=== PATIENT | male | born 1955 | race Hispanic/Latino ===

== ENCOUNTER 2016-07-18 09:52 | Emergency (ER) | payer MEDICAID ==
[2016-07-18 10:11] VITALS: BP 129/87; PULSE 81; RESP 20; TEMP 97; O2SAT 97
[2016-07-18] MEDS ORDERED: Albuterol-Ipratrop 3 mg / 0.5 (3 ml) UD INH STA ×3 (10:40→10:42)
[2016-07-18] MEDS ORDERED: Sodium Chloride 0.9% 1,000 ML IV STA (10:41)
[2016-07-18] MEDS ORDERED: Albuterol-Ipratrop 3 mg / 0.5 (3 ml) UD ONE ×2 (10:41→10:42)
--- NOTE | 2016-07-18 10:45 | ED PDOC ---
HPI: SOB/CHF/COPD Time Seen by Provider: 07/18/16 10:09 Chief Complaint (Nursing): Shortness Of Breath History Per: Patient (states progressive cough and dyspnea for 3 days. getting worse despite use of albuterol. he was admitted last year due to the flu but states that he was given flu vaccine this past season. denies pneumonia vaccine. ) History/Exam Limitations: no limitations Onset/Duration Of Symptoms: Days (3) Current Symptoms Are (Timing): Still Present Current Respiratory Medications: See Home Med List, Albuterol Severity: Moderate Associated Symptoms: denies: Fever, Chills, Sweating, Chest Pain, Bloody Cough, Productive Cough, Heart Racing, Leg/Calf Pain, Ankle/Leg Swelling, Dizziness, Light-headedness, Anxiety, Tingling In Hands Or Face, Musle Spasms In Hands Or Feet - Risk Factors PE Risk Factors: Neg: Extremity Immobilization/Fx, Decreased Mobilty /Activity, Recent Hospitalization, Active Cancer, Previous DVT, Previous PE, CHF, Venous Stasis, Estrogen Usage, Recent Major Trauma Past Medical History Vital Signs: Last Vital Signs Temp 97 F L 07/18/16 10:09 Pulse 81 07/18/16 10:09 Resp 20 07/18/16 11:13 BP 129/87 07/18/16 10:09 Pulse Ox 97 07/18/16 10:46 - Medical History PMH: Asthma, COPD, Sexually Transmitted Disease (Gonorrhea 40 years ago) Denies: HIV, Chronic Kidney Disease - Family History Family History: States: No Known Family Hx - Home Medications Home Medications: Ambulatory Orders Medication Instructions Recorded Patient Own Med [Patient Own Med] 1 unit INH PRN 02/15/14 Oseltamivir [Tamiflu] 75 mg PO BID #0 cap 02/19/14 Albuterol/Ipratropium [Combivent 1 puff IH Q6H #1 inhaler 07/18/16 Respimat] predniSONE [predniSONE Tab] 40 mg PO DAILY #10 tab 07/18/16 - Allergies Allergies/Adverse Reactions: Allergies Allergy/AdvReac Type Severity Reaction Status Date / Time No Known Allergies Allergy Verified 02/15/14 14:42 Review of Systems ROS Statement: Except As Marked, All Systems Reviewed And Found Negative Constitutional: Negative for: Fever Cardiovascular: Negative for: Chest Pain Respiratory: Positive for: Cough, Shortness of Breath Gastrointestinal: Negative for: Nausea, Vomiting, Abdominal Pain, Diarrhea, Constipation Genitourinary Male: Negative for: Dysuria Musculoskeletal: Negative for: Neck Pain, Shoulder Pain, Back Pain Neurological: Negative for: Weakness Physical Exam - Reviewed Nursing Documentation Reviewed: Yes Vital Signs Reviewed: Yes - Physical Exam Appears: Positive for: Well, Non-toxic, No Acute Distress Head Exam: Positive for: ATRAUMATIC, NORMAL INSPECTION, NORMOCEPHALIC Skin: Positive for: Normal Color, Warm, DRY Eye Exam: Positive for: EOMI, Normal appearance, PERRL ENT: Positive for: Normal ENT Inspection Neck: Positive for: Normal, Painless ROM Cardiovascular/Chest: Positive for: Regular Rate, Rhythm Respiratory: Positive for: Decreased Breath Sounds (in all parekh). Negative for: Accessory Muscle Use, Rales, Rhonchi, Wheezing, Respiratory Distress Gastrointestinal/Abdominal: Positive for: Normal Exam, Bowel Sounds, Soft Back: Positive for: Normal Inspection Extremity: Positive for: Normal ROM Neurologic/Psych: Positive for: Alert, Oriented - Laboratory Results Result Diagrams: 07/18/16 11:03 07/18/16 11:03 - ECG O2 Sat by Pulse Oximetry: 97 - Radiology X-Ray: Read By Radiologist X-Ray Interpretation: No Acute Disease - Progress Re-evaluation Time: 12:30 Condition: Re-examined, Improved Disposition - Clinical Impression Clinical Impression: COPD exacerbation - Patient ED Disposition Is Patient to be Admitted: No Doctor Will See Patient In The: Office Counseled Patient/Family Regarding: Diagnosis, Need For Followup, Rx Given - Disposition Referrals: [facility] [Outside] [facility] [Outside] Disposition: Routine/Home Disposition Time: 12:31 Condition: STABLE Prescriptions: Albuterol/Ipratropium [Combivent Respimat] 1 puff IH Q6H #1 inhaler predniSONE [predniSONE Tab] 40 mg PO DAILY #10 tab Instructions: COPD (Chronic Obstructive Pulmonary Disease) (ED) - POA Present On Arrival: None
[2016-07-18 11:08] LABS: BASO # 0.1 K/uL (0.0-0.2); BASO % 0.9 % (0.0-2.0); EOS # 0.8 K/uL (0.0-0.7); EOS % 11.5 % (0.0-4.0); HEMATOCRIT 44.5 % (35.0-51.0); LYMPH # 0.9 K/uL (1.0-4.3); LYMPH % 13.6 % (20.0-40.0); MEAN CELL VOLUME 95.9 fl (80.0-94.0); MEAN CORPUSCULAR HGB CONC 33.4 g/dL (33.0-37.0); MEAN PLATELET VOLUME 7.4 fl (7.2-11.7); MONO # 0.8 K/uL (0.0-0.8); MONO % 12.1 % (0.0-10.0); NEUT # 4.3 K/uL (1.8-7.0); NEUT % 61.9 % (50.0-75.0); NRBC % 0.1 % (0.0-0.0); RED CELL DISTRIBUTION WIDTH 12.7 % (11.5-14.5); WHITE BLOOD COUNT 6.9 K/uL (4.8-10.8)
[2016-07-18 11:14] LABS: ABG ALLEN TEST YES; ARTERIAL BLOOD GAS HCO3 25.2 mmol/L (21-28); ARTERIAL BLOOD GAS O2 CAPACITY 20.5 mL/dL (16-24); ARTERIAL BLOOD GAS O2 CONTENT 20.2 ML/dL (15-23); ARTERIAL BLOOD GAS PH 7.47 (7.35-7.45); ARTERIAL BLOOD GAS PO2 81 mm/Hg (80-100); CARBOXYHEMOGLOBIN 2.1 % (0.5-1.5); HHB 1.4 % (0.0-5.0); METHEMOGLOBIN 1.5 % (0.0-3.0)
[2016-07-18 11:18] LABS: ALB/GLOB RATIO 1.5 (1.0-2.1); ALKALINE PHOSPHATASE 73 U/L (38-126); ALT/SGPT 26 U/L (21-72); AST/SGOT 38 U/L (17-59); BILIRUBIN,TOTAL 0.8 mg/dl (0.2-1.3); BLOOD UREA NITROGEN 12 mg/dl (9-20); CALCIUM 9.6 mg/dL (8.4-10.2); CARBON DIOXIDE 26 mmol/L (22-30); CHLORIDE 100 mmol/L (98-107); GFR AFRICAN-AMERICAN > 60; GLUCOSE,RANDOM 86 mg/dL (75-110); POTASSIUM 4.1 MMOL/L (3.6-5.0); SODIUM 140 mmol/l (132-148); TOTAL PROTEIN 8.4 G/DL (6.3-8.2)
--- NOTE | 2016-07-18 11:38 | RAD ---
HISTORY: COPD. COMPARISON: 02/16/2014. TECHNIQUE: Chest PA and lateral FINDINGS: LUNGS: Hyperinflation, manifestations of COPD. No active pulmonary disease. PLEURA: No significant pleural effusion identified. No pneumothorax apparent. CARDIOVASCULAR: Normal. OSSEOUS STRUCTURES: No significant abnormalities. VISUALIZED UPPER ABDOMEN: Normal. OTHER FINDINGS: None. IMPRESSION: No active disease. No significant interval change compared to the prior examination(s).
--- NOTE | 2016-07-19 11:37 | CARD ---
APPROVED REPORT EKG Measurement Heart [id number] 134P [id number] <Conclusion> Normal sinus rhythm Normal ECG
== END 2016-07-18 12:55 | disposition home or self-care (01) ==
LOC: H.ER 09:52
DX: J44.9 Chronic obstructive pulmonary disease, unspecified (principal); Z86.718 Personal history of other venous thrombosis and embolism
CPT/HCPCS: 71020; 80053; 82803; 85025; 87804; 93005; 94150; 94640; 96361; 96374; 99285; J2930; J7040

== ENCOUNTER 2016-08-05 07:32 | Inpatient (IN) | payer MEDICAID ==
[2016-08-05 07:39] VITALS: BMI 20.9
[2016-08-05] MEDS ORDERED: Albuterol-Ipratrop 3 mg / 0.5 (3 ml) UD ONE ×3 (07:48→17:19)
--- NOTE | 2016-08-05 07:49 | ED PDOC ---
HPI: General Adult Time Seen by Provider: 08/05/16 07:46 Chief Complaint (Provider): cough History Per: Patient History/Exam Limitations: no limitations Additional Complaint(s): 60yo male w/ COPD comes to the ED complaining of cough with white sputum since yesterday. No fever. States his inhaler isn't helping. Past Medical History Reviewed: Historical Data, Nursing Documentation, Vital Signs Vital Signs: Last Vital Signs Temp 97.9 F 08/05/16 07:39 Pulse 95 H 08/05/16 07:39 Resp 20 08/05/16 07:39 BP 148/101 H 08/05/16 07:39 Pulse Ox 94 L 08/05/16 08:12 - Medical History PMH: Asthma, COPD, Sexually Transmitted Disease (Gonorrhea 40 years ago) Denies: HIV, Chronic Kidney Disease - Family History Family History: States: Unknown Family Hx - Social History Current smoker - smoking cessation education provided: Yes ("i have one here and there but I don't but them in packs anymore") - Home Medications Home Medications: Ambulatory Orders Medication Instructions Recorded Albuterol HFA [Ventolin HFA 90 1 puff INH PRN PRN 08/05/16 mcg/actuation (8 g)] - Allergies Allergies/Adverse Reactions: Allergies Allergy/AdvReac Type Severity Reaction Status Date / Time No Known Allergies Allergy Verified 08/05/16 07:45 Review of Systems ROS Statement: Except As Marked, All Systems Reviewed And Found Negative Constitutional: Negative for: Fever Cardiovascular: Negative for: Chest Pain Respiratory: Positive for: Cough, Sputum Physical Exam - Reviewed Nursing Documentation Reviewed: Yes Vital Signs Reviewed: Yes - Physical Exam Appears: Positive for: Well, Non-toxic Head Exam: Positive for: ATRAUMATIC, NORMAL INSPECTION, NORMOCEPHALIC Skin: Positive for: Warm, Dry Eye Exam: Positive for: EOMI, PERRL ENT: Negative for: Pharyngeal Erythema, Tonsillar Exudate Cardiovascular/Chest: Positive for: Regular Rate, Rhythm Respiratory: Positive for: Decreased Breath Sounds, Rhonchi (scattered), Respiratory Distress (mild to moderate). Negative for: Wheezing Gastrointestinal/Abdominal: Positive for: Soft. Negative for: Tenderness Extremity: Positive for: Normal ROM Neurologic/Psych: Positive for: Alert, Oriented (x3) - Laboratory Results Result Diagrams: 08/05/16 08:12 08/05/16 08:12 - ECG O2 Sat by Pulse Oximetry: 94 (RA) Medical Decision Making Medical Decision Makin Impression COPD exacerbation Plan: EKG ABG CXR Labs 2x duonebs solumedrol 125mg reassess Disposition - Clinical Impression Clinical Impression: Moderate COPD (chronic obstructive pulmonary disease), COPD exacerbation - Patient ED Disposition Is Patient to be Admitted: Yes - Disposition Disposition Time: 09:36 Condition: FAIR - Pt Status Changed To: Hospital Disposition Of: Observation - POA Present On Arrival: None Additional Comments - Additional Comments Additional Comments: Scribe Attestation Documented by George Black acting as a scribe for Mo John MD. Provider Attestation All medical record entries made by the Scribe were at my direction and personally dictated by me. I have reviewed the chart and agree that the record accurately reflects my personal performance of the history, physical exam, medical decision making, and the department course for this patient. I have also personally directed, reviewed, and agree with the discharge instructions and disposition
[2016-08-05] MEDS ORDERED: Albuterol-Ipratrop 3 mg / 0.5 (3 ml) UD IH STA ×2 (07:50)
[2016-08-05 08:16] LABS: ABG ALLEN TEST YES; ARTERIAL BLOOD FLOW 2; ARTERIAL BLOOD GAS HCO3 24.4 mmol/L (21-28); ARTERIAL BLOOD GAS MODE NC; ARTERIAL BLOOD GAS O2 CAPACITY 19.3 mL/dL (16-24); ARTERIAL BLOOD GAS O2 CONTENT 19.2 ML/dL (15-23); ARTERIAL BLOOD GAS PH 7.43 (7.35-7.45); ARTERIAL BLOOD GAS PO2 85 mm/Hg (80-100); CARBOXYHEMOGLOBIN 3.5 % (0.5-1.5); HHB 0.3 % (0.0-5.0); METHEMOGLOBIN 2.2 % (0.0-3.0)
[2016-08-05 08:20] LABS: BASO # 0.1 K/uL (0.0-0.2); BASO % 1.1 % (0.0-2.0); EOS # 1.3 K/uL (0.0-0.7); EOS % 17.4 % (0.0-4.0); HEMATOCRIT 41.7 % (35.0-51.0); LYMPH # 1.1 K/uL (1.0-4.3); MEAN CELL VOLUME 95.4 fl (80.0-94.0); MEAN CORPUSCULAR HEMOGLOBIN 32.3 pg (27.0-31.0); MEAN CORPUSCULAR HGB CONC 33.8 g/dL (33.0-37.0); MEAN PLATELET VOLUME 7.4 fl (7.2-11.7); MONO # 0.7 K/uL (0.0-0.8); MONO % 9.8 % (0.0-10.0); NEUT # 4.4 K/uL (1.8-7.0); NEUT % 57.7 % (50.0-75.0); NRBC % 0.1 % (0.0-0.0); RED CELL DISTRIBUTION WIDTH 13.3 % (11.5-14.5); WHITE BLOOD COUNT 7.6 K/uL (4.8-10.8)
[2016-08-05 08:33] LABS: ALB/GLOB RATIO 1.4 (1.0-2.1); ALKALINE PHOSPHATASE 54 U/L (38-126); ALT/SGPT 29 U/L (21-72); AST/SGOT 31 U/L (17-59); BILIRUBIN,TOTAL 0.2 mg/dl (0.2-1.3); BLOOD UREA NITROGEN 12 mg/dl (9-20); CALCIUM 9.4 mg/dL (8.4-10.2); CARBON DIOXIDE 21 mmol/L (22-30); CHLORIDE 104 mmol/L (98-107); GFR AFRICAN-AMERICAN > 60; GLUCOSE,RANDOM 97 mg/dL (75-110); POTASSIUM 4.3 MMOL/L (3.6-5.0); SODIUM 140 mmol/l (132-148); TOTAL PROTEIN 8.5 G/DL (6.3-8.2)
--- NOTE | 2016-08-05 08:51 | RAD ---
HISTORY: Shortness of breath COMPARISON: 07/18/2016. TECHNIQUE: Chest PA and lateral FINDINGS: LUNGS: The lungs are hyperinflated and there is peribronchial thickening with chronic changes in both lungs. There is no lobar pneumonia. PLEURA: No significant pleural effusion identified. No pneumothorax apparent. CARDIOVASCULAR: Normal. OSSEOUS STRUCTURES: No significant abnormalities. VISUALIZED UPPER ABDOMEN: Normal. OTHER FINDINGS: None. IMPRESSION: No active pulmonary disease. COPD.
[2016-08-05] MEDS ORDERED: Albuterol 0.083% Inhal Sol (2.5 mg/3 mL) UD INH PRN (09:53)
--- NOTE | 2016-08-05 09:54 | CP.PCM.HP ---
History of Present Illness - History of Present Illness History of Present Illness: Hx taken from patient Patient does not have advance directives: Designates Alia Orourke(Cousin) [phone] to make decisions for him in case he is not able to. Patient is full code 60 y/o M with PMhx of COPD presented to ED c/o SOB since yesterday. Patien has Hx of CPOD controlled with Albuterol HFA, he admits not taking Advair that was prescribed to him because he is unable to pay for it. Last hosp admission was 1 y/a and last ER visit 2 weeks ago when he was DC with Prednisone PO for 10 days that he finished. He admits chronic cough with small amount of phlegm production but denies any changes in sputum frequency or characteristics recently. Afebrile. Denies other resp symptoms, CP or palpitations Patient lives in a basement with 2 friends. Has long Hx of tobacco abuse but states he only smoke "a couple of cigarettes" from time to time nowadays. Denies traveling Hx. He decided to come to hosp after he wasn't feeling any improvement with the albuterol. ED Course: O2, CXR, Duoneb x2, Solumedrol 125 CBC, ABG VS: O2sat 94, BP 148/101, HR 95 Allergies: NKDA PMHx: COPD(No home O2) SxHx: Neck cyst SHx: Smoking, past ETOH, denies drugs. Denies recent traveling Hx. Present on Admission - Present on Admission Any Indicators Present on Admission: No Review of Systems - Review of Systems Systems not reviewed;Unavailable: Acuity of Condition (Stable, Mild resp difficulty) - Constitutional Constitutional: absent: Anorexia, Weight Loss - EENT Eyes: absent: Change in Vision Nose/Mouth/Throat: absent: Nasal Discharge, Nasal Obstruction, Dry Mouth - Cardiovascular Cardiovascular: As Per HPI - Respiratory Respiratory: As Per HPI - Gastrointestinal Gastrointestinal: absent: Abdominal Pain, Constipation, Diarrhea - Genitourinary Genitourinary: absent: Change in Urinary Stream - Musculoskeletal Musculoskeletal: absent: Abnormal Gait - Neurological Neurological: absent: Dizziness - Psychiatric Psychiatric: absent: Depression Past Patient History - Tetanus Immunizations Tetanus Immunization: Unknown - Past Medical History & Family History Past Medical History?: Yes - Past Social History Smoking Status: Light Smoker < 10 Cigarettes Daily - CARDIAC Hx Cardiac Disorders: No - PULMONARY Hx Asthma: Yes Hx Chronic Obstructive Pulmonary Disease (COPD): Yes - NEUROLOGICAL Hx Neurological Disorder: No - HEENT Hx HEENT Problems: No - RENAL Hx Chronic Kidney Disease: No - ENDOCRINE/METABOLIC Hx Endocrine Disorders: No - HEMATOLOGICAL/ONCOLOGICAL Hx Human Immunodeficiency Virus (HIV): No - INTEGUMENTARY Hx Dermatological Problems: No - MUSCULOSKELETAL/RHEUMATOLOGICAL Hx Musculoskeletal Disorders: No Hx Falls: No - GASTROINTESTINAL Hx Gastrointestinal Disorders: No - GENITOURINARY/GYNECOLOGICAL Hx Sexually Transmitted Disorders: Yes (Gonorrhea 40 years ago) - PSYCHIATRIC Hx Psychophysiologic Disorder: No Hx Substance Use: No (occasional puffs of marijuana) - SURGICAL HISTORY Hx Surgeries: Yes (neck cyst right side) - ANESTHESIA Hx Anesthesia: Yes Hx Anesthesia Reactions: No Hx Malignant Hyperthermia: No Meds Allergies/Adverse Reactions: Allergies Allergy/AdvReac Type Severity Reaction Status Date / Time No Known Allergies Allergy Verified 08/05/16 07:45 Physical Exam - Constitutional Appears: Non-toxic, Other (mild difficulty breathing) - Head Exam Head Exam: NORMAL INSPECTION - Eye Exam Eye Exam: PERRL - ENT Exam ENT Exam: Mucous Membranes Moist - Respiratory Exam Respiratory Exam: Accessory Muscle Use, Rhonchi, Wheezes. absent: Respiratory Distress - Cardiovascular Exam Cardiovascular Exam: REGULAR RHYTHM, +S1, +S2. absent: Gallop - GI/Abdominal Exam GI & Abdominal Exam: Normal Bowel Sounds, Soft - Extremities Exam Extremities exam: Positive for: full ROM, normal capillary refill, normal inspection, pedal pulses present - Neurological Exam Neurological exam: Alert, Oriented x3 - Psychiatric Exam Psychiatric exam: Normal Affect, Normal Mood - Skin Skin Exam: Normal Color, Warm Results - Vital Signs Recent Vital Signs: Last Vital Signs Temp 97.9 F 08/05/16 07:39 Pulse 95 H 08/05/16 07:39 Resp 20 08/05/16 07:39 BP 148/101 H 08/05/16 07:39 Pulse Ox 94 L 08/05/16 09:36 - Labs Result Diagrams: 08/05/16 08:12 08/05/16 08:12 Assessment & Plan - Assessment and Plan (Free Text) Assessment: 58 y/o M, PMH of COPD, c/o increasing SOB since yesterday. COPD exacerbation - ABG done at ER: WNL - CXR: COPD please read full report - Admit for obs - Monitor vital signs - S/P Duoneb x2 - S/P Methylprednisolone 125mg IV - Duoneb inh 3ml QID - Albuterol inh PRN for SOB Q3h - C/w Methylprednisolone 80mg iv q8h - Oxygen by NC 2L/min - Continue iv fluids - repeat CBC AM - Will need custodial anticholinergic or inh steroids + LABA after DC for maintenance High blood pressure without Hx of HTN - CMP, Lipid panel, HgbA1c - Heart healthy diet - EKG WNL Prophylaxis - DVT: Lovenox 40mg sc daily
--- NOTE | 2016-08-05 16:07 | CARD ---
APPROVED REPORT EKG Measurement Heart [id number] <Conclusion> Normal sinus rhythm Normal ECG
[2016-08-05] MEDS ORDERED: MethylPREDNISolone 40 mg Vial ONE (16:32)
[2016-08-05] MEDS: Albuterol-Ipratrop 3 mg / 0.5 (3 ml) UD INH SCH ×3 (16:40→22:12)
[2016-08-06] MEDS: methylPREDNISolone 80 MG in Sodium Chloride 0.9% 50 ML IV SCH ×2 (02:00→17:43)
[2016-08-06] MEDS: Albuterol-Ipratrop 3 mg / 0.5 (3 ml) UD INH SCH ×4 (07:35→20:31)
[2016-08-06 07:43] LABS: HEMATOCRIT 41.6 % (35.0-51.0); MEAN CELL VOLUME 95.1 fl (80.0-94.0); MEAN CORPUSCULAR HEMOGLOBIN 32.1 pg (27.0-31.0); MEAN CORPUSCULAR HGB CONC 33.8 g/dL (33.0-37.0); RED CELL DISTRIBUTION WIDTH 13.2 % (11.5-14.5)
[2016-08-06 08:05] LABS: ALB/GLOB RATIO 1.4 (1.0-2.1); ALKALINE PHOSPHATASE 50 U/L (38-126); ALT/SGPT 28 U/L (21-72); AST/SGOT 25 U/L (17-59); BILIRUBIN,TOTAL 0.7 mg/dl (0.2-1.3); BLOOD UREA NITROGEN 18 mg/dl (9-20); CARBON DIOXIDE 27 mmol/L (22-30); CHLORIDE 100 mmol/L (98-107); CHOLESTEROL 160 mg/dL (0-199); GFR AFRICAN-AMERICAN > 60; GLUCOSE,RANDOM 136 mg/dL (75-110); POTASSIUM 4.8 MMOL/L (3.6-5.0); SODIUM 139 mmol/l (132-148); TOTAL PROTEIN 7.9 G/DL (6.3-8.2)
[2016-08-06] MEDS: Enoxaparin 40 mg Syringe SC SCH (10:39)
[2016-08-06] MEDS: methylPREDNISolone 40 MG in Sodium Chloride 0.9% 50 ML IV SCH (16:55)
--- NOTE | 2016-08-06 16:58 | CP.PCM.PN ---
Subjective - Date & Time of Evaluation Date of Evaluation: 08/06/16 Time of Evaluation: 07:45 - Subjective Subjective: 60 y/o M admitted for COPD exacerbation seen at bedside in not acute distress. Patient general status markedly improved from yesterday. Still c/o of SOB on exertion but not at rest. Denies CP, palpitations, headache, dizziness, vomiting or nausea. He is tolerating PO Objective - Vital Signs/Intake and Output Vital Signs (last 24 hours): Temp Pulse Resp BP Pulse Ox 98.2 F 62 18 109/76 96 08/06/16 16:02 08/06/16 16:02 08/06/16 16:02 08/06/16 16:02 08/06/16 16:02 - Medications Medications: Current Medications Albuterol Sulfate (Albuterol 0.083% Inhal Fernanda (2.5 Mg/3 Ml) Ud) 2.5 mg INH RQ4 PRN PRN Reason: Shortness of Breath Albuterol/Ipratropium (Duoneb 3 Mg/0.5 Mg (3 Ml) Ud) 3 ml INH RQID [facility] Last Admin: 08/06/16 15:24 Dose: 3 ml Enoxaparin Sodium (Lovenox) 40 mg SC DAILY [facility] PRN Reason: Protocol Last Admin: 08/06/16 10:39 Dose: 40 mg Methylprednisolone 40 mg/ (Sodium Chloride) 50.64 mls @ 101.28 mls/hr IV Q8 [facility] - Labs Labs: 08/06/16 07:29 08/06/16 07:29 - Constitutional Appears: Non-toxic, No Acute Distress - Eye Exam Eye Exam: PERRL - ENT Exam ENT Exam: Mucous Membranes Moist - Respiratory Exam Respiratory Exam: Rhonchi (scattered in L/lung. ), Wheezes, NORMAL BREATHING PATTERN - Cardiovascular Exam Cardiovascular Exam: REGULAR RHYTHM, +S1, +S2. absent: Gallop - GI/Abdominal Exam GI & Abdominal Exam: Soft, Normal Bowel Sounds. absent: Tenderness - Neurological Exam Neurological Exam: Alert, Awake, Normal Gait, Oriented x3 - Psychiatric Exam Psychiatric exam: Normal Affect, Normal Mood - Skin Skin Exam: Normal Color, Warm Assessment and Plan - Assessment and Plan (Free Text) Assessment: 58 y/o M, PMH of COPD, c/o increasing SOB since yesterday. COPD exacerbation Improved - CXR: COPD please read full report - Duoneb inh 3ml QID - Albuterol inh PRN for SOB Q3h - C/w Methylprednisolone 40mg iv q8h - Oxygen by NC 2L/min - Continue iv fluids - Will need prison anticholinergic or inh steroids + LABA after DC for maintenance - Anticipated DC on 08/07/16 High blood pressure without Hx of HTN - WNL since admission - CMP WNL - Lipid panel WNL - HgbA1c WNL - Heart healthy diet - EKG WNL Prophylaxis - DVT: Lovenox 40mg sc daily
[2016-08-06] MEDS: guaiFENesin 100 mg/5 ml Syrup UD PO PRN (20:32)
[2016-08-07 00:49] VITALS: TEMP 98.5
[2016-08-07] MEDS: methylPREDNISolone 40 MG in Sodium Chloride 0.9% 50 ML IV SCH ×2 (00:56→09:24)
--- NOTE | 2016-08-07 06:36 | CARD ---
APPROVED REPORT EKG Measurement Heart [id number] [id number] [id number] <Conclusion> Normal sinus rhythm Normal ECG
[2016-08-07] MEDS: Albuterol-Ipratrop 3 mg / 0.5 (3 ml) UD INH SCH ×2 (08:15→12:17)
[2016-08-07 08:23] VITALS: BP 101/70; PULSE 69; RESP 20; O2SAT 95
[2016-08-07] MEDS: guaiFENesin 100 mg/5 ml Syrup UD PO PRN (09:24)
[2016-08-07] MEDS: Enoxaparin 40 mg Syringe SC SCH (09:24)
--- NOTE | 2016-08-07 12:24 | CP.PCM.DIS ---
Provider - Provider Date of Admission: 08/06/16 14:05 Attending physician: Cici Avendano MD Primary care physician: Dr. Duffy Time Spent in preparation of Discharge (in minutes): 30 Diagnosis - Discharge Diagnosis (1) COPD exacerbation Status: Acute Priority: Medium Onset Date: 08/05/16 Hospital Course - Lab Results Lab Results: Most Recent Lab Values WBC 11.0 K/uL (4.8-10.8) H 08/06/16 07:29 RBC 4.37 Mil/uL (4.40-5.90) L 08/06/16 07:29 Hgb 14.0 g/dL (12.0-18.0) 08/06/16 07:29 Hct 41.6 % (35.0-51.0) 08/06/16 07:29 MCV 95.1 fl (80.0-94.0) H 08/06/16 07:29 MCH 32.1 pg (27.0-31.0) H 08/06/16 07:29 MCHC 33.8 g/dL (33.0-37.0) 08/06/16 07:29 RDW 13.2 % (11.5-14.5) 08/06/16 07:29 Plt Count 353 K/uL (130-400) 08/06/16 07:29 MPV 7.4 fl (7.2-11.7) 08/05/16 08:12 Neut % (Auto) 57.7 % (50.0-75.0) 08/05/16 08:12 Lymph % (Auto) 14.0 % (20.0-40.0) L 08/05/16 08:12 [place] % (Auto) 9.8 % (0.0-10.0) 08/05/16 08:12 Eos % (Auto) 17.4 % (0.0-4.0) H 08/05/16 08:12 Baso % (Auto) 1.1 % (0.0-2.0) 08/05/16 08:12 Neut # 4.4 K/uL (1.8-7.0) 08/05/16 08:12 Lymph # 1.1 K/uL (1.0-4.3) 08/05/16 08:12 [place] # 0.7 K/uL (0.0-0.8) 08/05/16 08:12 Eos # 1.3 K/uL (0.0-0.7) H 08/05/16 08:12 Baso # 0.1 K/uL (0.0-0.2) 08/05/16 08:12 pCO2 35 mm/Hg (35-45) 08/05/16 07:49 pO2 85 mm/Hg (80-100) 08/05/16 07:49 HCO3 24.4 mmol/L (21-28) 08/05/16 07:49 ABG pH 7.43 (7.35-7.45) 08/05/16 07:49 ABG Total CO2 24.3 mmol/L (22-28) 08/05/16 07:49 ABG O2 Saturation 99.7 % (95-98) H 08/05/16 07:49 ABG O2 Content 19.2 ML/dL (15-23) 08/05/16 07:49 ABG Base Excess -0.6 mmol/L (-2.0-3.0) 08/05/16 07:49 ABG Hemoglobin 14.5 g/dL (11.7-17.4) 08/05/16 07:49 ABG Carboxyhemoglobin 3.5 % (0.5-1.5) H 08/05/16 07:49 POC ABG HHb (Measured) 0.3 % (0.0-5.0) 08/05/16 07:49 ABG Methemoglobin 2.2 % (0.0-3.0) 08/05/16 07:49 ABG O2 Capacity 19.3 mL/dL (16-24) 08/05/16 07:49 Otoniel Test Yes 08/05/16 07:49 A-a O2 Difference 71.0 mm/Hg 08/05/16 07:49 Hgb O2 Saturation 94.0 % (95.0-98.0) L 08/05/16 07:49 Liter Flow 2 08/05/16 07:49 Vent Mode Nc 08/05/16 07:49 FiO2 28.0 % 08/05/16 07:49 Sodium 139 mmol/l (132-148) 08/06/16 07:29 Potassium 4.8 MMOL/L (3.6-5.0) 08/06/16 07:29 Chloride 100 mmol/L (98-107) 08/06/16 07:29 Carbon Dioxide 27 mmol/L (22-30) 08/06/16 07:29 Anion Gap 17 (10-20) 08/06/16 07:29 BUN 18 mg/dl (9-20) 08/06/16 07:29 Creatinine 0.6 mg/dL (0.8-1.5) L 08/06/16 07:29 Est GFR ( Amer) > 60 08/06/16 07:29 Est GFR (Non-Af Amer) > 60 08/06/16 07:29 Random Glucose 136 mg/dL (75-110) H 08/06/16 07:29 Hemoglobin A1c 5.5 % (4.2-6.5) 08/06/16 07:29 Calcium 10.0 mg/dL (8.4-10.2) 08/06/16 07:29 Total Bilirubin 0.7 mg/dl (0.2-1.3) 08/06/16 07:29 AST 25 U/L (17-59) 08/06/16 07:29 ALT 28 U/L (21-72) 08/06/16 07:29 Alkaline Phosphatase 50 U/L (38-126) 08/06/16 07:29 Total Protein 7.9 G/DL (6.3-8.2) 08/06/16 07:29 Albumin 4.5 g/dL (3.5-5.0) 08/06/16 07:29 Globulin 3.3 gm/dL (2.2-3.9) 08/06/16 07:29 Albumin/Globulin Ratio 1.4 (1.0-2.1) 08/06/16 07:29 Triglycerides 33 mg/DL (0-149) 08/06/16 07:29 Cholesterol 160 mg/dL (0-199) 08/06/16 07:29 LDL Cholesterol Direct 51 mg/dL (0-129) 08/06/16 07:29 HDL Cholesterol 93 MG/DL (30-70) H 08/06/16 07:29 Urine Opiates Screen Negative (NEGATIVE) 08/06/16 18:50 Urine Methadone Screen Negative (NEGATIVE) 08/06/16 18:50 Ur Barbiturates Screen Negative (NEGATIVE) 08/06/16 18:50 Ur Phencyclidine Scrn Negative (NEGATIVE) 08/06/16 18:50 Ur Amphetamines Screen Negative (NEGATIVE) 08/06/16 18:50 U Benzodiazepines Scrn Negative (NEGATIVE) 08/06/16 18:50 U Oth Cocaine Metabols Negative (NEGATIVE) 08/06/16 18:50 U Cannabinoids Screen Positive (NEGATIVE) H 08/06/16 18:50 - Hospital Course Hospital Course: 60 yr old M current smoker with PMHx of COPD came [facility] ED with complaint of worsening cough and sputum production x 1 day. CXR was negative for active disease, he was admitted for COPD exacerbation and treated with Albuterol Methylprednisolone, patient improved, remained stable and O2 was normal on room air. Discharged with Rx for Ventolin HFA 90mcg PRN SOB, Prednisone 20mg PO x 3 days, Advair Diskus 250/50 mcg and Robitussin AC PRN for cough. We strongly recommmend outpatient screening for AAA, Hep C and Lung Ca. He has a f/u appt at [facility] scheduled for 08/14/16 at 2:20pm. - Date & Time of H&P Date of H&P: 08/05/16 Time of H&P: 09:52 Discharge Exam - Head Exam Head Exam: NORMAL INSPECTION - Eye Exam Eye Exam: EOMI - ENT Exam ENT Exam: Mucous Membranes Moist - Neck Exam Neck exam: Full Rom - Respiratory Exam Respiratory Exam: Clear to PA & Lateral, NORMAL BREATHING PATTERN - Cardiovascular Exam Cardiovascular Exam: REGULAR RHYTHM, +S1, +S2 - GI/Abdominal Exam GI & Abdominal Exam: Normal Bowel Sounds, Soft. absent: Tenderness - Extremities Exam Extremities exam: full ROM - Back Exam Back exam: absent: CVA tenderness (L), CVA tenderness (R) - Neurological Exam Neurological exam: Alert, CN II-XII Intact - Psychiatric Exam Psychiatric exam: Normal Affect, Normal Mood - Skin Skin Exam: Dry, Intact Discharge Plan - Discharge Medications Prescriptions: Albuterol HFA [Ventolin HFA 90 mcg/actuation (8 g)] 1 puff INH Q4 PRN #1 PRN Reason: Shortness Of Breath Fluticasone/Salmeterol 250/50 [Advair Diskus] 1 puff IH Q12 #1 puff guaiFENesin/Codeine [Codeine/Guaifenesin 10 MG/5 Ml-100 MG/5 Ml 5] 5 ml PO Q6 PRN #1 udc PRN Reason: Cough Prednisone [Deltasone] 20 mg PO DAILY #3 tablet - Follow Up Plan Condition: FAIR Disposition: HOME/ ROUTINE Patient education suggested?: Yes Instructions: COPD (Chronic Obstructive Pulmonary Disease) (DC) Additional Instructions: -Take medications as prescribed -Follow up at [facility] as scheduled on 08/14/16 2:20pm Referrals: Danita Duffy [Family Provider] -
--- NOTE | 2016-08-07 14:14 | PQF GENQUE ---
This form is a permanent part of the medical record 08/07/16 Dr. Flynn Min, Please clarify the type of asthma if known. In the H&P under the PMH section there is documentation of Asthma (YES). + COPD noted. Admitted with SOB and productive cough. CXR No active pulmonary disease. COPD. Treated with nebulizers, Solumedrol and Robitussin Clarification of your documentation is requested to better reflect the severity of illness and intensity of treatment of your patient. PHYSICIAN'S RESPONSE 1. Please clarify type of asthma: [] Childhood [] Cough variant [] Exercise induced [] Late onset [] Mild intermittent [] Mild persistent [] Moderate persistent [] Severe persistent [] With bronchitis(please clarify acuity of bronchitis) [] With chronic lung disease (please document specific chronic lung disease ) [] Other (please specify) [] Unable to determine [] Unknown 2. Please clarify acuity of asthma: [] Uncomplicated [] With exacerbation(acute) [] With status asthmaticus [] Other (please specify) [] Unable to determine [] Unknown Based on your medical judgment of the clinical indicators outlined above please clarify the following: [] Practitioner response [] If unable to determine, please check the box, sign and date. Present On Admission (POA) Indicator: [] Present at the time of admission [] Not present at the time of admission [] Clinically Undetermined In responding to this query, please exercise your independent professional judgment. The fact that a question is asked does not imply that any particular answer is desired or expected. Thank you for your clarification on this documentation. If you have any questions please call:[phone] Medical Records Dept * Thank you, Dasha Michel RN CDMP MTDD
== END 2016-08-07 14:57 | disposition home or self-care (01) | DRG 88 ==
LOC: H.ER 07:32 → H.ERHOLD 09:35 → H.TEL 17:37 → OBSVTOIN 08-06 14:05 → H.MEDSURG1 08-06 15:45
PROVIDERS: ADMIT Family Medicine Geriatric Medicine; ATTEND Family Medicine Geriatric Medicine
DX: J44.1 Chronic obstructive pulmonary disease with (acute) exacerbation (principal); F17.200 Nicotine dependence, unspecified, uncomplicated; J45.909 Unspecified asthma, uncomplicated; R03.0 Elevated blood-pressure reading, without diagnosis of hypertension

== ENCOUNTER 2016-10-04 23:58 | Emergency (ER) | payer MEDICAID, OTHER ==
[2016-10-04 23:58] VITALS: BMI 20.9
[2016-10-05 00:08] VITALS: BP 126/88; TEMP 98.9; O2SAT 96
[2016-10-05] MEDS ORDERED: Albuterol-Ipratrop 3 mg / 0.5 (3 ml) UD ONE (00:18)
[2016-10-05] MEDS ORDERED: Magnesium Sulfate 2 GM in Sodium Chloride 0.9% 100 ML IV STA (00:21)
[2016-10-05] MEDS ORDERED: Albuterol-Ipratrop 3 mg / 0.5 (3 ml) UD INH STA ×3 (00:21→00:22)
[2016-10-05] MEDS ORDERED: Magnesium Sulfate 2 gm/50 ml 2 GM/50 ML BAG ONE (00:30)
[2016-10-05 00:34] LABS: BASO # 0.1 K/uL (0.0-0.2); BASO % 1.5 % (0.0-2.0); EOS # 0.6 K/uL (0.0-0.7); EOS % 8.6 % (0.0-4.0); HEMATOCRIT 43.9 % (35.0-51.0); LYMPH # 1.5 K/uL (1.0-4.3); LYMPH % 21.9 % (20.0-40.0); MEAN CELL VOLUME 96.1 fl (80.0-94.0); MEAN CORPUSCULAR HGB CONC 33.3 g/dL (33.0-37.0); MEAN PLATELET VOLUME 7.2 fl (7.2-11.7); MONO # 0.9 K/uL (0.0-0.8); MONO % 13.6 % (0.0-10.0); NEUT # 3.7 K/uL (1.8-7.0); NEUT % 54.4 % (50.0-75.0); NRBC % 0.1 % (0.0-0.0); RED CELL DISTRIBUTION WIDTH 13.5 % (11.5-14.5); WHITE BLOOD COUNT 6.7 K/uL (4.8-10.8)
[2016-10-05 00:37] LABS: ABG ALLEN TEST YES; ARTERIAL BLOOD GAS HCO3 25.8 mmol/L (21-28); ARTERIAL BLOOD GAS MODE 6L NEB TX O2; ARTERIAL BLOOD GAS PO2 151 mm/Hg (80-100)
[2016-10-05 00:42] LABS: BLOOD UREA NITROGEN 10 mg/dl (9-20); CALCIUM 9.8 mg/dL (8.4-10.2); CARBON DIOXIDE 27 mmol/L (22-30); CHLORIDE 100 mmol/L (98-107); GFR AFRICAN-AMERICAN > 60; GLUCOSE,RANDOM 80 mg/dL (75-110); POTASSIUM 3.9 MMOL/L (3.6-5.0); SODIUM 138 mmol/l (132-148)
[2016-10-05 00:57] VITALS: RESP 25
--- NOTE | 2016-10-05 00:57 | ED PDOC ---
HPI: SOB/CHF/COPD Time Seen by Provider: 10/05/16 00:09 Chief Complaint (Nursing): Respiratory Distress Chief Complaint (Provider): Shortness of breath and wheezing History Per: Patient History/Exam Limitations: no limitations Onset/Duration Of Symptoms: Days (onset today at work) Associated Symptoms: denies: Fever, Chills, Chest Pain, Productive Cough Additional History Per: Patient Additional Complaint(s): Zechariah Pwoer presents to the ED with a chief complaint of shortness or breath and wheezing onset today at work. patient is an active smoker with a history of COPD. Reports not really sure what triggered the COPD exacerbation. Denies any chest pain, fever, chills or productive coughs. Of note, patient has been out of Advair for 1 week. PMD: none Past Medical History Reviewed: Historical Data, Nursing Documentation, Vital Signs Vital Signs: Last Vital Signs Temp 98.9 F 10/05/16 00:06 Pulse 88 10/05/16 00:06 Resp 25 H 10/05/16 00:10 BP 126/88 10/05/16 00:06 Pulse Ox 96 10/05/16 01:08 - Medical History PMH: Asthma, COPD, Sexually Transmitted Disease (Gonorrhea 40 years ago) Denies: HIV, Chronic Kidney Disease - Surgical History Surgical History: No Surg Hx - Family History Family History: States: Unknown Family Hx - Social History Current smoker - smoking cessation education provided: Yes Ex-Smoker (has not smoked in the last 12 months): No - Home Medications Home Medications: Ambulatory Orders Medication Instructions Recorded Albuterol HFA [Ventolin HFA 90 1 puff INH Q4 PRN #1 08/07/16 mcg/actuation (8 g)] Fluticasone/Salmeterol 250/50 1 puff IH Q12 #1 puff 08/07/16 [Advair Diskus] Prednisone [Deltasone] 20 mg PO DAILY #3 tablet 08/07/16 guaiFENesin/Codeine 5 ml PO Q6 PRN #1 udc 08/07/16 [Codeine/Guaifenesin 10 MG/5 Ml-100 MG/5 Ml 5] Fluticasone/Salmeterol [Advair 1 each IH DAILY #1 blst.w.dev 10/05/16 250-50 Diskus] predniSONE [predniSONE Tab] 60 mg PO DAILY #9 tab 10/05/16 - Allergies Allergies/Adverse Reactions: Allergies Allergy/AdvReac Type Severity Reaction Status Date / Time No Known Allergies Allergy Verified 10/05/16 00:08 Review of Systems ROS Statement: Except As Marked, All Systems Reviewed And Found Negative Constitutional: Negative for: Fever, Chills Respiratory: Positive for: Shortness of Breath, Wheezing. Negative for: Cough ( No productive cough) Physical Exam - Reviewed Nursing Documentation Reviewed: Yes Vital Signs Reviewed: Yes - Physical Exam Appears: Positive for: Well, Non-toxic, No Acute Distress Head Exam: Positive for: ATRAUMATIC, NORMAL INSPECTION, NORMOCEPHALIC Skin: Positive for: Normal Color Eye Exam: Positive for: Normal appearance, EOMI, PERRL ENT: Positive for: Normal ENT Inspection Neck: Positive for: Normal, Painless ROM, Supple Cardiovascular/Chest: Positive for: Regular Rate, Rhythm. Negative for: Murmur , Tachycardia Respiratory: Positive for: Wheezing (Diffused wheezing.), Respiratory Distress ( Moderate respiratory distress with intercostal and superclavicular retractions. ), Other (Decreased air entry bilaterally.). Negative for: Normal Breath Sounds Gastrointestinal/Abdominal: Positive for: Normal Exam, Soft. Negative for: Tenderness Back: Positive for: Normal Inspection Rectal: Positive for: Deferred Extremity: Positive for: Normal ROM Lymphatic: Positive for: Deferred Neurologic/Psych: Positive for: Alert, Oriented - Laboratory Results Result Diagrams: 10/05/16 00:15 10/05/16 00:15 - ECG O2 Sat by Pulse Oximetry: 96 (RA) Pulse Ox Interpretation: Normal Medical Decision Making Medical Decision Making: Time:0009: Initial Impression: 60 year old male with moderate COPD exacerbation. Initial Plan: * Labs and IV ordered. * ABG shock panel * EKG * BMP * CBC with differentials * Chest one view * Re-Eval 2AM: Pt. no longer wheezing, no longer using accessory muscle usage, no longer having respiratory distress. Saturating well off O2. Will dc/ home prednisone and advair and strict instructions to f/u w/ PMD and also strict return precautions. Scribe Attestation: Documented by Tamar Lemus acting as a scribe for Branden Dodd MD. Provider Scribe Attestation: All medical record entries made by the Scribe were at my direction and personally dictated by me. I have reviewed the chart and agree that the record accurately reflects my personal performance of the history, physical exam, medical decision making, and the department course for this patient. I have also personally directed, reviewed, and agree with the discharge instructions and disposition. Disposition - Clinical Impression Clinical Impression: COPD exacerbation - Patient ED Disposition Is Patient to be Admitted: No - Disposition Referrals: [facility] [Outside] Disposition: Routine/Home Disposition Time: 02:12 Condition: STABLE Prescriptions: Fluticasone/Salmeterol [Advair 250-50 Diskus] 1 each IH DAILY #1 blst.w.dev predniSONE [predniSONE Tab] 60 mg PO DAILY #9 tab Instructions: COPD (Chronic Obstructive Pulmonary Disease) (ED) Forms: [employer] (Faroese)
[2016-10-05 04:11] VITALS: PULSE 82
--- NOTE | 2016-10-05 09:41 | RAD ---
PROCEDURE: CHEST RADIOGRAPH, 1 VIEW HISTORY: sob COMPARISON: None available. FINDINGS: LUNGS: Clear. PLEURA: No pneumothorax or pleural fluid seen. CARDIOVASCULAR: Normal. OSSEOUS STRUCTURES: No significant abnormalities. VISUALIZED UPPER ABDOMEN: Normal. OTHER FINDINGS: None. IMPRESSION: No active disease.
--- NOTE | 2016-10-05 13:11 | CARD ---
APPROVED REPORT EKG Measurement Heart [id number] <Conclusion> Normal sinus rhythm Nonspecific ST abnormality Abnormal ECG
== END 2016-10-05 04:11 | disposition home or self-care (01) ==
LOC: H.ER 23:58
DX: J44.1 Chronic obstructive pulmonary disease with (acute) exacerbation (principal); Z87.891 Personal history of nicotine dependence

== ENCOUNTER 2016-10-22 08:42 | Inpatient (IN) | payer MEDICAID, OTHER ==
[2016-10-22 08:42] VITALS: BMI 20.9
[2016-10-22] MEDS ORDERED: Albuterol-Ipratrop 3 mg / 0.5 (3 ml) UD ONE (08:58)
[2016-10-22] MEDS ORDERED: Sodium Chloride 0.9% 500 ML IV STA (09:38)
[2016-10-22] MEDS ORDERED: Albuterol-Ipratrop 3 mg / 0.5 (3 ml) UD INH STA ×2 (09:38)
[2016-10-22] MEDS ORDERED: Albuterol-Ipratrop 3 mg / 0.5 (3 ml) UD IH STA (09:38)
--- NOTE | 2016-10-22 09:47 | ED PDOC ---
HPI: SOB/CHF/COPD Time Seen by Provider: 10/22/16 09:12 Chief Complaint (Nursing): Shortness Of Breath Chief Complaint (Provider): Shortness of Breath History Per: Patient History/Exam Limitations: no limitations Onset/Duration Of Symptoms: Days (x1) Current Symptoms Are (Timing): Still Present Additional Complaint(s): Zechariah Power is a 60 year old male with a past medical history of COPD presenting to the ED for an evaluation of shortness of breath associated with left leg cramping, and cough occurring last night prior to arrival. 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 The patient states he only takes an Albuterol inhaler for his COPD as he does not have insurance and cannot afford his other medications. He denies chest pain, dizziness, weakness, nasal congestion, or runny nose. No abd pain, vomit, diarrhea. PMD: [facility] Past Medical History Reviewed: Historical Data, Nursing Documentation, Vital Signs Vital Signs: Last Vital Signs Temp Pulse 88 10/22/16 09:07 Resp 26 H 10/22/16 09:28 BP 110/52 L 10/22/16 09:07 Pulse Ox 92 L 10/22/16 11:57 - Medical History PMH: Asthma, COPD Denies: HIV, Chronic Kidney Disease - Family History Family History: States: Unknown Family Hx - Social History Current smoker - smoking cessation education provided: Yes Alcohol: None Drugs: Denies - Home Medications Home Medications: Ambulatory Orders Medication Instructions Recorded Albuterol HFA [Ventolin HFA 90 1 puff INH Q4 PRN #1 08/07/16 mcg/actuation (8 g)] Fluticasone/Salmeterol 250/50 1 puff IH Q12 #1 puff 08/07/16 [Advair Diskus] Prednisone [Deltasone] 20 mg PO DAILY #3 tablet 08/07/16 guaiFENesin/Codeine 5 ml PO Q6 PRN #1 udc 08/07/16 [Codeine/Guaifenesin 10 MG/5 Ml-100 MG/5 Ml 5] Fluticasone/Salmeterol [Advair 1 each IH DAILY #1 blst.w.dev 10/05/16 250-50 Diskus] predniSONE [predniSONE Tab] 60 mg PO DAILY #9 tab 10/05/16 - Allergies Allergies/Adverse Reactions: Allergies Allergy/AdvReac Type Severity Reaction Status Date / Time No Known Allergies Allergy Verified 10/05/16 00:08 Review of Systems ROS Statement: Except As Marked, All Systems Reviewed And Found Negative ENT: Negative for: Nose Discharge, Nose Congestion Cardiovascular: Negative for: Chest Pain Respiratory: Positive for: Cough, Shortness of Breath Musculoskeletal: Positive for: Leg Pain (left leg cramping) Neurological: Negative for: Dizziness Physical Exam - Reviewed Nursing Documentation Reviewed: Yes Vital Signs Reviewed: Yes - Physical Exam Appears: Positive for: Non-toxic, No Acute Distress Head Exam: Positive for: ATRAUMATIC, NORMAL INSPECTION, NORMOCEPHALIC Skin: Positive for: Normal Color, Warm, Dry Eye Exam: Positive for: EOMI, Normal appearance, PERRL ENT: Positive for: Normal ENT Inspection, Pharynx Is (clear) Neck: Positive for: Normal, Painless ROM Cardiovascular/Chest: Positive for: Regular Rate, Rhythm Respiratory: Positive for: Decreased Breath Sounds (diffuse breath sounds ), Wheezing (diffuse wheezing bilaterally). Negative for: Accessory Muscle Use, Respiratory Distress Gastrointestinal/Abdominal: Positive for: Normal Exam, Bowel Sounds, Soft. Negative for: Tenderness Back: Positive for: Normal Inspection. Negative for: L CVA Tenderness, R CVA Tenderness Extremity: Positive for: Normal ROM. Negative for: Tenderness, Pedal Edema, Calf Tenderness (or erythema bilaterally) Neurologic/Psych: Positive for: Alert, Oriented - Laboratory Results Result Diagrams: 10/22/16 09:54 10/22/16 09:54 Interpretation Of Abn Labs: no acute - ECG ECG: Positive for: Interpreted By Me, Viewed By Ca ECG Rhythm: Positive for: Normal QRS, Normal ST Segment, Sinus Rhythm O2 Sat by Pulse Oximetry: 92 (RA; 92 hypoxia improved with oxygen) Pulse Ox Interpretation: Normal - Radiology X-Ray: Read By Radiologist X-Ray Interpretation: No Acute Disease - Progress ED Course And Treament: 1212: Stable. AAOx3. Pain free. Still with sats of 89% on ambulation. Will admit tele obs. Spoke with [facility] resident will admit. Medical Decision Making Medical Decision Makin:12 Impression: Shortness of breath Plan: * ABG * ED EKG * B-type natriuretic peptide * Comp metabolic panel * Troponin I * CBC (With differential) * Partial thromboplastin * Prothrombin Time * Chest portable [RAD] * Duoneb 3 ml Inh * NS 100 mls/hr * SOLU-medrol 125 mg IVP * Blood culture * Nebulizer Tx RT * Peak Flow Pre/post Tx * US Duplex Left lower extrm vein * Reevaluation Chest X-Ray FINDINGS: LUNGS: The lungs are hyperinflated and there is peribronchial thickening with chronic changes in both lungs. No focal consolidation. PLEURA: No significant pleural effusion identified, no pneumothorax apparent. CARDIOVASCULAR: Normal. OSSEOUS STRUCTURES: No significant abnormalities. VISUALIZED UPPER ABDOMEN: Normal. OTHER FINDINGS: None. IMPRESSION: No active pulmonary were disease. COPD. Scribe Attestation: Documented by Re Garcia, acting as a scribe for Polo Donaldson MD. Provider Scribe Attestation: All medical record entries made by the Scribe were at my direction and personally dictated by me. I have reviewed the chart and agree that the record accurately reflects my personal performance of the history, physical exam, medical decision making, and the department course for this patient. I have also personally directed, reviewed, and agree with the discharge instructions and disposition. Disposition - Clinical Impression Clinical Impression: COPD exacerbation - Patient ED Disposition Is Patient to be Admitted: Yes - Disposition Disposition Time: 12:13 Condition: STABLE - Pt Status Changed To: Hospital Disposition Of: Observation - POA Present On Arrival: None
[2016-10-22 09:58] LABS: ABG ALLEN TEST YES; ARTERIAL BLOOD GAS HCO3 25.7 mmol/L (21-28); ARTERIAL BLOOD GAS O2 SAT 99.6 % (95-98); ARTERIAL BLOOD GAS PCO2 45 mm/Hg (35-45); ARTERIAL BLOOD GAS PH 7.38 (7.35-7.45); ARTERIAL BLOOD GAS PO2 89 mm/Hg (80-100)
[2016-10-22 10:00] LABS: BASO # 0.1 K/uL (0.0-0.2); BASO % 1.1 % (0.0-2.0); EOS # 1.7 K/uL (0.0-0.7); HEMOGLOBIN 13.9 g/dL (12.0-18.0); LYMPH # 0.8 K/uL (1.0-4.3); LYMPH % 11.1 % (20.0-40.0); MEAN CELL VOLUME 96.1 fl (80.0-94.0); MEAN CORPUSCULAR HEMOGLOBIN 32.2 pg (27.0-31.0); MEAN CORPUSCULAR HGB CONC 33.4 g/dL (33.0-37.0); MEAN PLATELET VOLUME 6.9 fl (7.2-11.7); MONO # 0.9 K/uL (0.0-0.8); MONO % 11.2 % (0.0-10.0); NEUT # 4.1 K/uL (1.8-7.0); NEUT % 53.6 % (50.0-75.0); PLATELET COUNT 288 K/uL (130-400); RBC 4.33 Mil/uL (4.40-5.90); RED CELL DISTRIBUTION WIDTH 13.4 % (11.5-14.5); WHITE BLOOD COUNT 7.6 K/uL (4.8-10.8)
[2016-10-22 10:10] LABS: ALB/GLOB RATIO 1.4 (1.0-2.1); ALBUMIN 4.4 g/dL (3.5-5.0); ALT/SGPT 30 U/L (21-72); AST/SGOT 34 U/L (17-59); BLOOD UREA NITROGEN 11 mg/dl (9-20); CALCIUM 9.3 mg/dL (8.4-10.2); GFR AFRICAN-AMERICAN > 60; GFR NON-AFRICAN AMERICAN > 60
[2016-10-22 10:18] LABS: PARTIAL THROMBOPLASTIN TIME 34.3 Seconds (25.6-37.1); PROTHROMBIN TIME 10.4 Seconds (9.8-13.1)
[2016-10-22 10:20] LABS: B-TYPE NATRIURETIC PEPTIDE 59.2 pg/ml (0-900)
--- NOTE | 2016-10-22 10:22 | RAD ---
HISTORY: dyspnea COMPARISON: 10/05/2016. FINDINGS: LUNGS: The lungs are hyperinflated and there is peribronchial thickening with chronic changes in both lungs. No focal consolidation. PLEURA: No significant pleural effusion identified, no pneumothorax apparent. CARDIOVASCULAR: Normal. OSSEOUS STRUCTURES: No significant abnormalities. VISUALIZED UPPER ABDOMEN: Normal. OTHER FINDINGS: None. IMPRESSION: No active pulmonary were disease. COPD.
[2016-10-22 10:34] LABS: BASOPHIL 3 % (0-2); EOSINOPHIL 23 % (0-7); LYMPHOCYTE 9 % (20-50); MONOCYTE 10 % (0-10); NEUTROPHIL 55 % (42-75); TOTAL CELLS COUNTED 100
[2016-10-22 10:35] LABS: PLATELET ESTIMATE NORMAL (NORMAL)
[2016-10-22] MEDS ORDERED: Magnesium Sulfate 2 gm/50 ml 2 GM/50 ML BAG IVPB ONE (12:14)
[2016-10-22] MEDS ORDERED: Magnesium Sulfate 2 gm/50 ml 2 GM/50 ML BAG ONE (13:03)
--- NOTE | 2016-10-22 13:08 | US ---
HISTORY: PAIN IN CALF . PRIORS: None. FINDINGS: 2-D, color and duplex Doppler analysis of the lower extremity venous circulation using routine protocol from the femoral veins through the popliteal veins. Venous compressibility: Normal. Flow and augmentation patterns: Normal. Visualized veins upper third of calf: Normal. White cyst: There is a 5.0 x 4.5 x 1.0 cm popliteal cyst. IMPRESSION: No evidence of deep venous thrombosis. Large simple popliteal cyst.
--- NOTE | 2016-10-22 15:08 | CP.PCM.HP ---
History of Present Illness - History of Present Illness History of Present Illness: 60 year old male with hx of COPD presented with 2 day history of worsening dyspnea admitted for COPD exacerbation. Patient was using his inhaler more frequently for past day or so, without much relief which prompted visit to ED. He only has albuterol pump, he was unable to afford Advair that was prescribed to him in the past during another admission. He does not currently have sputum production but does admit since he stopped smoking after his last admission, it has increased. Pt also complaining of left lower extremity cramping, exacerbated by taking vitamin D that he was told to take. No sick contacts. He denies fatigue, cough, sputum production, nausea, vomiting , or abdominal pain. EcW reviewed. PMD: NHC: Dr. Guardado Social : smoker since 12 y/o Medications: Albuterol pump Allergies: NKDA ED COURSE: Vital signs on arrival: T98 HR: 98, BP: 121/85, RR 18, Spo2: 95% * CBC: 7.6 > 13.9 /41.6 <288 * CMP: WNL * Lactate: 1.2 * EKG: NSR * Lower extremity doppler: negative for DVT * CXR: no acute pulmonary disease. COPD. Present on Admission - Present on Admission Any Indicators Present on Admission: No Past Patient History - Infectious Disease Hx of Infectious Diseases: None - Tetanus Immunizations Tetanus Immunization: Unknown - Past Medical History & Family History Past Medical History?: Yes - Past Social History Alcohol: None Drugs: Denies Home Situation {Lives}: Friends - CARDIAC Hx Cardiac Disorders: No - PULMONARY Hx Asthma: Yes Hx Chronic Obstructive Pulmonary Disease (COPD): Yes - NEUROLOGICAL Hx Neurological Disorder: No - HEENT Hx HEENT Problems: No - RENAL Hx Chronic Kidney Disease: No - ENDOCRINE/METABOLIC Hx Endocrine Disorders: No - HEMATOLOGICAL/ONCOLOGICAL Hx Human Immunodeficiency Virus (HIV): No - INTEGUMENTARY Hx Dermatological Problems: No - MUSCULOSKELETAL/RHEUMATOLOGICAL Hx Musculoskeletal Disorders: No Hx Falls: No - GASTROINTESTINAL Hx Gastrointestinal Disorders: No - GENITOURINARY/GYNECOLOGICAL Hx Sexually Transmitted Disorders: Yes (Gonorrhea 40 years ago) - PSYCHIATRIC Hx Psychophysiologic Disorder: No Hx Substance Use: No - SURGICAL HISTORY Hx Surgeries: Yes (neck cyst right side) - ANESTHESIA Hx Anesthesia: Yes Hx Anesthesia Reactions: No Hx Malignant Hyperthermia: No Meds Allergies/Adverse Reactions: Allergies Allergy/AdvReac Type Severity Reaction Status Date / Time No Known Allergies Allergy Verified 10/05/16 00:08 Physical Exam - Constitutional Appears: No Acute Distress (wearing o2 via nasal cannula, unable to speak in full sentences) - Head Exam Head Exam: NORMAL INSPECTION - Eye Exam Eye Exam: Normal appearance - ENT Exam ENT Exam: Mucous Membranes Moist - Respiratory Exam Respiratory Exam: Decreased Breath Sounds (all lung parekh), Rhonchi (diffuse), Wheezes (diffuse). absent: Respiratory Distress Additional comments: AP diameter appears increased - Cardiovascular Exam Cardiovascular Exam: REGULAR RHYTHM, +S1, +S2. absent: Bradycardia, Tachycardia - GI/Abdominal Exam GI & Abdominal Exam: Normal Bowel Sounds, Soft. absent: Tenderness - Rectal Exam Rectal Exam: Deferred - Extremities Exam Extremities exam: Positive for: normal inspection, pedal pulses present. Negative for: pedal edema, tenderness Additional comments: hommans negative - Neurological Exam Neurological exam: Alert, CN II-XII Intact, Oriented x3 - Psychiatric Exam Psychiatric exam: Normal Affect, Normal Mood - Skin Skin Exam: Dry, Intact, Warm Results - Vital Signs Recent Vital Signs: Last Vital Signs Temp 98.4 F 10/22/16 13:09 Pulse 82 10/22/16 13:09 Resp 16 10/22/16 13:09 BP 120/78 10/22/16 13:09 Pulse Ox 95 10/22/16 13:09 - Labs Result Diagrams: 10/22/16 09:54 10/22/16 09:54 Labs: Laboratory Results - last 24 hr 10/22/16 10/22/16 10/22/16 09:50 09:54 09:54 WBC 7.6 RBC 4.33 L Hgb 13.9 Hct 41.6 MCV 96.1 H MCH 32.2 H MCHC 33.4 RDW 13.4 Plt Count 288 MPV 6.9 L Neut % (Auto) 53.6 Lymph % (Auto) 11.1 L Gibson % (Auto) 11.2 H Eos % (Auto) 23.0 H Baso % (Auto) 1.1 Neut # 4.1 Lymph # 0.8 L Gibson # 0.9 H Eos # 1.7 H Baso # 0.1 Neutrophils % (Manual) 55 Lymphocytes % (Manual) 9 L Monocytes % (Manual) 10 Eosinophils % (Manual) 23 H Basophils % (Manual) 3 H Platelet Estimate Normal PT INR APTT pCO2 45 pO2 89 HCO3 25.7 ABG pH 7.38 ABG Total CO2 28.0 ABG O2 Saturation 99.6 H ABG Base Excess 1.0 Otoniel Test Yes ABG Potassium 3.7 A-a O2 Difference 54.0 Sodium 136.0 141 Chloride 103.0 103 Glucose 108 Lactate 1.2 FiO2 28.0 Potassium 4.0 Carbon Dioxide 25 Anion Gap 17 BUN 11 Creatinine 0.5 L Est GFR ( Amer) > 60 Est GFR (Non-Af Amer) > 60 Random Glucose 93 Calcium 9.3 Total Bilirubin 0.4 AST 34 ALT 30 Alkaline Phosphatase 49 Troponin I < 0.0120 NT-Pro-B Natriuret Pep 59.2 Total Protein 7.5 Albumin 4.4 Globulin 3.1 Albumin/Globulin Ratio 1.4 Arterial Blood Potassium 3.7 10/22/16 09:54 WBC RBC Hgb Hct MCV MCH MCHC RDW Plt Count MPV Neut % (Auto) Lymph % (Auto) Gibson % (Auto) Eos % (Auto) Baso % (Auto) Neut # Lymph # Gibson # Eos # Baso # Neutrophils % (Manual) Lymphocytes % (Manual) Monocytes % (Manual) Eosinophils % (Manual) Basophils % (Manual) Platelet Estimate PT 10.4 INR 1.0 APTT 34.3 pCO2 pO2 HCO3 ABG pH ABG Total CO2 ABG O2 Saturation ABG Base Excess Otoniel Test ABG Potassium A-a O2 Difference Sodium Chloride Glucose Lactate FiO2 Potassium Carbon Dioxide Anion Gap BUN Creatinine Est GFR ( Amer) Est GFR (Non-Af Amer) Random Glucose Calcium Total Bilirubin AST ALT Alkaline Phosphatase Troponin I NT-Pro-B Natriuret Pep Total Protein Albumin Globulin Albumin/Globulin Ratio Arterial Blood Potassium Assessment & Plan (1) COPD exacerbation Assessment and Plan: 60 y/o M with COPD admitted for COPD exacerbation. Pt is afebrile, no leukocytosis, no cough or sputum production. Start IV steroids and duonebs q4 sarina. O2 via NC. CXR reviewed, hyperinflation with peribronchial thickening with chronic changes. Will hold off on antibiotics for now given pt is afebrile and no consolidation was seen. Acute exacerbation of chronic COPD -solumedrol 60mg q 12 -duonebs q4 sarina -O2 continous, monitor for desaturation Status: Acute Onset Date: 08/05/16 (2) DVT prophylaxis Assessment and Plan: -lovenox 40mg sc -scds Status: Acute
--- NOTE | 2016-10-22 15:09 | CARD ---
APPROVED REPORT EKG Measurement Heart [id number] [id number] <Conclusion> Normal sinus rhythm Normal ECG
[2016-10-22] MEDS: Albuterol-Ipratrop 3 mg / 0.5 (3 ml) UD INH SCH (20:49)
[2016-10-22] MEDS: methylPREDNISolone 60 MG in Sodium Chloride 0.9% 50 ML IVPB SCH (21:39)
[2016-10-23] MEDS: Albuterol-Ipratrop 3 mg / 0.5 (3 ml) UD INH SCH ×6 (00:14→23:59)
[2016-10-23] MEDS: Enoxaparin 40 mg Syringe SC SCH (08:30)
[2016-10-23] MEDS: methylPREDNISolone 60 MG in Sodium Chloride 0.9% 50 ML IVPB SCH ×2 (08:40→21:13)
[2016-10-23] MEDS: Benzocaine/Menthol (Cepacol) Lozenge PO PRN ×2 (08:41→18:36)
--- NOTE | 2016-10-23 09:19 | CP.PCM.PN ---
Subjective - Date & Time of Evaluation Date of Evaluation: 10/23/16 Time of Evaluation: 07:30 - Subjective Subjective: No acute events overnight. Patient seen and examined bedside. He reports feeling worse this AM, worsening dyspnea and non productive cough. His throat 'feels raw.' Patient scheduled for duonebs q4 hrs and solumedrol 60mg q12. O2 sat 94% on RA after 3 minutes. Walking test later today. Objective - Vital Signs/Intake and Output Vital Signs (last 24 hours): Temp Pulse Resp BP Pulse Ox 97.6 F 62 18 98/68 L 98 10/23/16 08:03 10/23/16 08:03 10/23/16 08:03 10/23/16 08:03 10/23/16 08:03 - Medications Medications: Current Medications Acetaminophen (Tylenol 325mg Tab) 650 mg PO Q6 PRN PRN Reason: Fever >100.4 F Albuterol/Ipratropium (Duoneb 3 Mg/0.5 Mg (3 Ml) Ud) 3 ml INH RQ4 SARINA Last Admin: 10/23/16 07:28 Dose: 3 ml Benzocaine/Menthol (Cepacol Sore Throat) 1 frank PO Q3 PRN PRN Reason: Sore Throat Last Admin: 10/23/16 08:41 Dose: 1 frank Enoxaparin Sodium (Lovenox) 40 mg SC DAILY SARINA PRN Reason: Protocol Last Admin: 10/23/16 08:30 Dose: 40 mg Methylprednisolone 60 mg/ (Sodium Chloride) 50 mls @ 100 mls/hr IVPB Q12 SARINA Last Admin: 10/23/16 08:40 Dose: 100 mls/hr - Labs Labs: PT 10.4 Seconds (9.8-13.1) 10/22/16 09:54 INR 1.0 (0.9-1.2) 10/22/16 09:54 APTT 34.3 Seconds (25.6-37.1) 10/22/16 09:54 - Constitutional Appears: In Acute Distress (mild respiratory distress) - Eye Exam Eye Exam: Normal appearance - ENT Exam ENT Exam: Mucous Membranes Moist - Respiratory Exam Respiratory Exam: Rhonchi (diffuse), Wheezes (diffuse), Respiratory Distress ( mild). absent: Accessory Muscle Use, Rales - Cardiovascular Exam Cardiovascular Exam: REGULAR RHYTHM, +S1, +S2 - GI/Abdominal Exam GI & Abdominal Exam: Soft. absent: Distended, Guarding - Extremities Exam Extremities Exam: absent: Pedal Edema, Tenderness - Neurological Exam Neurological Exam: Alert, Awake, CN II-XII Intact, Oriented x3 - Psychiatric Exam Psychiatric exam: Normal Affect, Normal Mood - Skin Skin Exam: Dry, Intact Assessment and Plan (1) COPD exacerbation Assessment & Plan: 60 y/o M with COPD admitted for COPD exacerbation. Pt remained afebrile, no leukocytosis, has cough with deep inspiration, cough remains unproductive. Given patients worsening dyspnea despite current management and extensive smoking hx, will get ct chest and echo. Patient is not desaturating at room air. Not in respiratory failure at this time, however will monitor respiratory status closely. Continue with O2 continuously. Reassess. Acute exacerbation of chronic COPD -solumedrol 60mg q 12 -duonebs q4 sarina -O2 continous -chest ct pending report, will follow Status: Acute (2) Dyspnea Assessment & Plan: likely secondary to lung disease, will rule out cardiac cause. troponin negative x1, lower extremity doppler negative for DVT -follow up chest ct -follow up echo continue with duonebs scheduled and solumedrol Status: Acute (3) DVT prophylaxis Assessment & Plan: -lovenox 40mg sc -scds Status: Acute
[2016-10-23 09:39] LABS: BASO # 0.1 K/uL (0.0-0.2); BASO % 0.6 % (0.0-2.0); EOS # 0.3 K/uL (0.0-0.7); EOS % 3.2 % (0.0-4.0); HEMOGLOBIN 13.8 g/dL (12.0-18.0); LYMPH # 1.2 K/uL (1.0-4.3); LYMPH % 13.8 % (20.0-40.0); MEAN CELL VOLUME 95.9 fl (80.0-94.0); MEAN CORPUSCULAR HEMOGLOBIN 32.2 pg (27.0-31.0); MEAN CORPUSCULAR HGB CONC 33.5 g/dL (33.0-37.0); MEAN PLATELET VOLUME 7.3 fl (7.2-11.7); MONO % 11.1 % (0.0-10.0); NEUT # 6.4 K/uL (1.8-7.0); NEUT % 71.3 % (50.0-75.0); RBC 4.3 Mil/uL (4.40-5.90); RED CELL DISTRIBUTION WIDTH 13.2 % (11.5-14.5); WHITE BLOOD COUNT 8.9 K/uL (4.8-10.8)
[2016-10-23 10:05] LABS: BLOOD UREA NITROGEN 13 mg/dl (9-20); CALCIUM 9.6 mg/dL (8.4-10.2); GFR AFRICAN-AMERICAN > 60; GFR NON-AFRICAN AMERICAN > 60
--- NOTE | 2016-10-23 14:22 | CT ---
PROCEDURE: CT Chest without contrast HISTORY: worsening dyspnea, smoker COMPARISON: None. TECHNIQUE: Contiguous axial images were obtained through the chest without intravenous contrast enhancement. Sagittal and coronal reconstructions were performed. Radiation dose (DLP): 247.29 mGy-cm. This CT exam was performed using one or more of the following dose reduction techniques: Automated exposure control, adjustment of the mA and/or kV according to patient size, and/or use of iterative reconstruction technique. FINDINGS: LUNGS: Moderate emphysematous changes are noted predominant in the upper lobes. Diffuse hyperinflation of the lungs. No evidence of pneumonia or suspicious mass. There is pleural-based nodule at the right middle lobe measures 5 millimeter. There is diffuse thickening of the bronchi slightly more prominent in the lower lobes. Correlate clinically for bronchitis. MEDIASTINUM: Unremarkable thoracic aorta. No aneurysm. Normal sized heart. Main pulmonary artery unremarkable. No vascular congestion. No lymphadenopathy. PLEURA: No pleural fluid. No pneumothorax. BONES: No fracture. No destructive lesion. UPPER ABDOMEN: Grossly unremarkable. OTHER FINDINGS: None. IMPRESSION: Moderate emphysema. Diffuse thickening in the bronchial wall suspicious for bronchitis. No evidence of pneumonia. 5 millimeter pleural based nodule at the right middle lobe. Three months follow-up reassessment is suggested.
--- NOTE | 2016-10-23 15:30 | CARD ---
APPROVED REPORT EXAM: Two-dimensional and M-mode echocardiogram with Doppler and color Doppler. Other Information Quality : GoodRhythm : NSR INDICATION Dyspnea COPD 2D DIMENSIONS IVSd0.68 (0.7-1.1cm)LVDd4.18 (3.9-5.9cm) LVOT Diameter2.26 (1.8-2.4cm)PWd0.73 (0.7-1.1cm) IVSs0.83 (0.8-1.2cm)LVDs3.03 (2.5-4.0cm) FS (%) 27.5 %PWs0.98 (0.8-1.2cm) M-Mode DIMENSIONS Left Atrium (MM)2.68 (2.5-4.0cm)IVSd0.82 (0.7-1.1cm) Aortic Root2.85 (2.2-3.7cm)LVDd5.56 (4.0-5.6cm) Aortic Cusp Exc.2.21 (1.5-2.0cm)PWd0.62 (0.7-1.1cm) IVSs1.03 cmFS (%) 42 % LVDs3.21 (2.0-3.8cm)PWs1.26 cm Mitral Valve MV E Vxiwaybu04.5cm/sMV DECEL [id number] A Fsodptbr65.9cm/s MV FYP95irZ/A ratio1.1MVA (PHT)3.49cm2 TDI Lateral E' Peak V14.67cm/sMedial E' Peak V10.35cm/sE/Lateral E'4.5 E/Medial E'6.3 Pulmonary Valve PV Peak Nkcsahzc16.7cm/s LEFT VENTRICLE The left ventricle is normal size. There is normal left ventricular wall thickness. The left ventricular function is normal. The left ventricular ejection fraction is within the normal range. The Ejection Fraction is 60-65%. There is normal LV segmental wall motion. The left ventricular diastolic function is normal. No left ventricle thrombus noted on this study. There is no mass noted in the left ventricle. RIGHT VENTRICLE The right ventricle is normal size. There is normal right ventricular wall thickness. The right ventricular systolic function is normal. ATRIA The left atrium size is normal. The right atrium size is normal. The interatrial septum is intact with no evidence for an atrial septal defect. AORTIC VALVE The aortic valve is normal in structure and function. No aortic regurgitation is present. There is no aortic valvular stenosis. There is no aortic valvular vegetation. MITRAL VALVE The mitral valve is normal in structure and function. There is no evidence of mitral valve prolapse. There is no mitral valve stenosis. There is no mitral valve regurgitation noted. TRICUSPID VALVE The tricuspid valve is normal in structure and function. There is no tricuspid valve regurgitation noted. There is no tricuspid valve prolapse or vegetation. There is no tricuspid valve stenosis. PULMONIC VALVE The pulmonary valve is normal in structure and function. There is no pulmonic valvular regurgitation. There is no pulmonic valvular stenosis. GREAT VESSELS The aortic root is normal in size. The IVC is normal in size and collapses >50% with inspiration. PERICARDIAL EFFUSION The pericardium appears normal. There is no pleural effusion. <Conclusion> The left ventricle is normal size. The left ventricular function is normal. The left ventricular ejection fraction is within the normal range. The Ejection Fraction is 60-65%.
[2016-10-24] MEDS: Albuterol-Ipratrop 3 mg / 0.5 (3 ml) UD INH SCH ×2 (05:11→07:19)
[2016-10-24] MEDS: methylPREDNISolone 60 MG in Sodium Chloride 0.9% 50 ML IVPB SCH (08:26)
[2016-10-24] MEDS: Enoxaparin 40 mg Syringe SC SCH (08:27)
[2016-10-24 08:31] VITALS: RESP 20
[2016-10-24] MEDS ORDERED: Albuterol-Ipratrop 3 mg / 0.5 (3 ml) UD INH PRN (10:54)
--- NOTE | 2016-10-24 15:31 | CP.PCM.DIS ---
Provider - Provider Date of Admission: 10/23/16 13:40 Attending physician: Cici Avendano MD Time Spent in preparation of Discharge (in minutes): 35 Diagnosis - Discharge Diagnosis (1) COPD exacerbation Status: Acute Comment: Will d/c on prednisone PO x 7 days. 40mg for 5 days, then 20mg for 2 days. (2) Dyspnea Status: Acute Comment: 2' to COPD (3) Pulmonary nodule less than 6 cm determined by computed tomography of lung Status: Acute Comment: repeat ct chest in 3 months. Hospital Course - Lab Results Lab Results: Most Recent Lab Values WBC 8.9 K/uL (4.8-10.8) 10/23/16 08:45 RBC 4.30 Mil/uL (4.40-5.90) L 10/23/16 08:45 Hgb 13.8 g/dL (12.0-18.0) 10/23/16 08:45 Hct 41.2 % (35.0-51.0) 10/23/16 08:45 MCV 95.9 fl (80.0-94.0) H 10/23/16 08:45 MCH 32.2 pg (27.0-31.0) H 10/23/16 08:45 MCHC 33.5 g/dL (33.0-37.0) 10/23/16 08:45 RDW 13.2 % (11.5-14.5) 10/23/16 08:45 Plt Count 309 K/uL (130-400) 10/23/16 08:45 MPV 7.3 fl (7.2-11.7) 10/23/16 08:45 Neut % (Auto) 71.3 % (50.0-75.0) 10/23/16 08:45 Lymph % (Auto) 13.8 % (20.0-40.0) L 10/23/16 08:45 [place] % (Auto) 11.1 % (0.0-10.0) H 10/23/16 08:45 Eos % (Auto) 3.2 % (0.0-4.0) 10/23/16 08:45 Baso % (Auto) 0.6 % (0.0-2.0) 10/23/16 08:45 Neut # 6.4 K/uL (1.8-7.0) 10/23/16 08:45 Lymph # 1.2 K/uL (1.0-4.3) 10/23/16 08:45 [place] # 1.0 K/uL (0.0-0.8) H 10/23/16 08:45 Eos # 0.3 K/uL (0.0-0.7) 10/23/16 08:45 Baso # 0.1 K/uL (0.0-0.2) 10/23/16 08:45 Neutrophils % (Manual) 55 % (42-75) 10/22/16 09:54 Lymphocytes % (Manual) 9 % (20-50) L 10/22/16 09:54 Monocytes % (Manual) 10 % (0-10) 10/22/16 09:54 Eosinophils % (Manual) 23 % (0-7) H 10/22/16 09:54 Basophils % (Manual) 3 % (0-2) H 10/22/16 09:54 Platelet Estimate Normal (NORMAL) 10/22/16 09:54 PT 10.4 Seconds (9.8-13.1) 10/22/16 09:54 INR 1.0 (0.9-1.2) 10/22/16 09:54 APTT 34.3 Seconds (25.6-37.1) 10/22/16 09:54 pCO2 45 mm/Hg (35-45) 10/22/16 09:50 pO2 89 mm/Hg (80-100) 10/22/16 09:50 HCO3 25.7 mmol/L (21-28) 10/22/16 09:50 ABG pH 7.38 (7.35-7.45) 10/22/16 09:50 ABG Total CO2 28.0 mmol/L (22-28) 10/22/16 09:50 ABG O2 Saturation 99.6 % (95-98) H 10/22/16 09:50 ABG Base Excess 1.0 mmol/L (-2.0-3.0) 10/22/16 09:50 Otoniel Test Yes 10/22/16 09:50 ABG Potassium 3.7 mmol/L (3.6-5.2) 10/22/16 09:50 A-a O2 Difference 54.0 mm/Hg 10/22/16 09:50 Sodium 136.0 mmol/L (132-148) 10/22/16 09:50 Chloride 103.0 mmol/L (98-107) 10/22/16 09:50 Glucose 108 mg/dL (75-110) 10/22/16 09:50 Lactate 1.2 mmol/L (0.7-2.1) 10/22/16 09:50 FiO2 28.0 % 10/22/16 09:50 Sodium 138 mmol/l (132-148) 10/23/16 08:45 Potassium 3.5 MMOL/L (3.6-5.0) L 10/23/16 08:45 Chloride 101 mmol/L (98-107) 10/23/16 08:45 Carbon Dioxide 27 mmol/L (22-30) 10/23/16 08:45 Anion Gap 14 (10-20) 10/23/16 08:45 BUN 13 mg/dl (9-20) 10/23/16 08:45 Creatinine 0.6 mg/dL (0.8-1.5) L 10/23/16 08:45 Est GFR ( Amer) > 60 10/23/16 08:45 Est GFR (Non-Af Amer) > 60 10/23/16 08:45 Random Glucose 120 mg/dL (75-110) H 10/23/16 08:45 Calcium 9.6 mg/dL (8.4-10.2) 10/23/16 08:45 Total Bilirubin 0.4 mg/dl (0.2-1.3) 10/22/16 09:54 AST 34 U/L (17-59) 10/22/16 09:54 ALT 30 U/L (21-72) 10/22/16 09:54 Alkaline Phosphatase 49 U/L (38-126) 10/22/16 09:54 Troponin I < 0.0120 ng/mL (0.00-0.120) 10/22/16 09:54 NT-Pro-B Natriuret Pep 59.2 pg/ml (0-900) 10/22/16 09:54 Total Protein 7.5 G/DL (6.3-8.2) 10/22/16 09:54 Albumin 4.4 g/dL (3.5-5.0) 10/22/16 09:54 Globulin 3.1 gm/dL (2.2-3.9) 10/22/16 09:54 Albumin/Globulin Ratio 1.4 (1.0-2.1) 10/22/16 09:54 Arterial Blood Potassium 3.7 mmol/L (3.6-5.2) 10/22/16 09:50 - Hospital Course Hospital Course: 60 year old male admitted for acute copd exacerbation not improved with albuterol inhaler. Patient was treated with IV steroids and round the clock duonebs with improvement of dyspnea. He feels much better today, he remained afebrile and there was no leukocytosis during the admission. Chest CT: revealed 5mm pleural based nodule in right middle lobe. Ideally would give pt LAMA inhaler, patient is unable to afford this medication. Will give 7 day course of PO steroids. Discharge medications: start Prednisone 40mg x 5 days, then 20 mg x 2 days. resume Albuterol Inhaler q 4 PRN - Date & Time of H&P Date of H&P: 10/22/16 Time of H&P: 15:03 Discharge Exam - Head Exam Head Exam: NORMAL INSPECTION - ENT Exam ENT Exam: Mucous Membranes Moist - Respiratory Exam Respiratory Exam: Decreased Breath Sounds, Wheezes. absent: Rhonchi, Respiratory Distress - Cardiovascular Exam Cardiovascular Exam: REGULAR RHYTHM - GI/Abdominal Exam GI & Abdominal Exam: Unremarkable - Extremities Exam Additional comments: no pedal edema - Neurological Exam Neurological exam: Alert, CN II-XII Intact, Oriented x3 - Psychiatric Exam Psychiatric exam: Normal Affect, Normal Mood - Skin Skin Exam: Dry, Intact Discharge Plan - Discharge Medications Prescriptions: Prednisone [Deltasone] 20 mg PO DAILY #12 tablet - Follow Up Plan Condition: STABLE Disposition: HOME/ ROUTINE Instructions: Emphysema (DC) Additional Instructions: Patient to follow up at [facility] on 10/27/2016 at 10:00 AM Referrals: [facility] [place] [Outside]
[2016-10-24 16:12] VITALS: BP 100/71; PULSE 88; TEMP 98.1; O2SAT 96
[2016-10-25] MEDS ORDERED: methylPREDNISolone 60 MG in Sodium Chloride 0.9% 50 ML IVPB SCH (09:00)
== END 2016-10-24 17:43 | disposition home or self-care (01) | DRG 88 ==
LOC: H.ER 08:42 → H.ERHOLD 12:14 → H.TEL 16:48 → OBSVTOIN 10-23 13:40 → H.MEDSURG1 10-23 16:24
PROVIDERS: ADMIT Family Medicine Geriatric Medicine; ATTEND Family Medicine Geriatric Medicine
DX: J44.1 Chronic obstructive pulmonary disease with (acute) exacerbation (principal); F17.200 Nicotine dependence, unspecified, uncomplicated; J45.909 Unspecified asthma, uncomplicated; R91.1 Solitary pulmonary nodule

== ENCOUNTER 2016-11-05 23:12 | Emergency (ER) | payer OTHER ==
[2016-11-05 23:12] VITALS: BMI 20.9
[2016-11-05] MEDS ORDERED: Albuterol-Ipratrop 3 mg / 0.5 (3 ml) UD INH STA ×3 (23:45)
[2016-11-05] MEDS ORDERED: Fluticasone-Salmeterol 250-50mcg Diskus IH STA (23:46)
--- NOTE | 2016-11-06 00:16 | ED PDOC ---
HPI: SOB/CHF/COPD Time Seen by Provider: 11/05/16 23:23 Chief Complaint (Nursing): Shortness Of Breath Chief Complaint (Provider): Shortness of breath, COPD exacerbation History Per: Patient History/Exam Limitations: no limitations Onset/Duration Of Symptoms: Hrs Current Symptoms Are (Timing): Still Present Additional Complaint(s): The patient is a 60yo male, past medical history of COPD, well known to the ED and provider for frequent visits to the facility, presents to the ED today complaining of COPD exacerbation. Patient reports at work he was going in and out of a refrigerator and believes that triggered his symptoms. Patient denies any fever, chills or cough. Of note, he states he has not been able to get his medications as he has been unable to afford them. Patient offers no additional medical complaints. Past Medical History Reviewed: Historical Data, Nursing Documentation, Vital Signs Vital Signs: Last Vital Signs Temp Pulse 106 H 11/05/16 23:15 Resp 18 11/05/16 23:15 BP 115/75 11/05/16 23:15 Pulse Ox 97 11/06/16 01:32 - Medical History PMH: Asthma, COPD, Sexually Transmitted Disease (Gonorrhea 40 years ago) Denies: HIV, Chronic Kidney Disease - Surgical History Surgical History: No Surg Hx - Family History Family History: States: Unknown Family Hx - Home Medications Home Medications: Ambulatory Orders Medication Instructions Recorded Albuterol HFA [Ventolin HFA 90 1 puff INH Q4 PRN #1 08/07/16 mcg/actuation (8 g)] Prednisone [Deltasone] 20 mg PO DAILY #12 tablet 10/24/16 predniSONE [predniSONE Tab] 20 mg PO DAILY 3 Days 11/06/16 - Allergies Allergies/Adverse Reactions: Allergies Allergy/AdvReac Type Severity Reaction Status Date / Time No Known Allergies Allergy Verified 10/05/16 00:08 Review of Systems ROS Statement: Except As Marked, All Systems Reviewed And Found Negative Constitutional: Negative for: Fever, Chills Respiratory: Positive for: Shortness of Breath. Negative for: Cough Physical Exam - Reviewed Nursing Documentation Reviewed: Yes Vital Signs Reviewed: Yes - Physical Exam Appears: Positive for: Well, Non-toxic, No Acute Distress Head Exam: Positive for: ATRAUMATIC, NORMAL INSPECTION, NORMOCEPHALIC Skin: Positive for: Normal Color Eye Exam: Positive for: Normal appearance Neck: Positive for: Normal, Supple Cardiovascular/Chest: Positive for: Regular Rate, Rhythm. Negative for: Murmur Respiratory: Positive for: Wheezing, Other (intercostal retractions noted) Extremity: Positive for: Normal ROM. Negative for: Pedal Edema, Deformity, Swelling Neurologic/Psych: Positive for: Alert, Oriented. Negative for: Motor/Sensory Deficits - ECG O2 Sat by Pulse Oximetry: 97 (RA) Pulse Ox Interpretation: Normal Medical Decision Making Medical Decision Making: Time: 2344 Impression: COPD exacerbation Plan: -- Duoneb 3ml INH x3 -- solumedrol 125 mg IVP -- Advair -- Toradol 15 mg IVP Reassess Time: 129 [facility] up and appointment for a follow up. Patient is no longer retracting and reports feeling much better. Patient stable for discharge home. Scribe Attestation: Documented by Tiffany Romano acting as a scribe for Branden Dodd MD. Provider Attestation: All medical record entries made by the Scribe were at my direction and personally dictated by me. I have reviewed the chart and agree that the record accurately reflects my personal performance of the history, physical exam, medical decision making, and the department course for this patient. I have also personally directed, reviewed, and agree with the discharge instructions and disposition. Disposition - Clinical Impression Clinical Impression: COPD exacerbation Counseled Patient/Family Regarding: Diagnosis, Need For Followup - Disposition Referrals: [facility] [Outside] Disposition: Routine/Home Disposition Time: 01:32 Condition: STABLE Prescriptions: predniSONE [predniSONE Tab] 20 mg PO DAILY 3 Days Instructions: COPD (Chronic Obstructive Pulmonary Disease) (ED) Forms: [employer] ([place])
[2016-11-06 01:57] VITALS: BP 91/60; PULSE 91; RESP 20; O2SAT 93
== END 2016-11-06 01:56 | disposition home or self-care (01) ==
LOC: H.ER 23:12
DX: J44.1 Chronic obstructive pulmonary disease with (acute) exacerbation (principal)
CPT/HCPCS: 94640; 96374; 96375; 99285; J1885; J2930

== ENCOUNTER 2016-11-11 18:10 | Inpatient (IN) | payer OTHER ==
[2016-11-11 18:11] VITALS: BMI 20.9
[2016-11-11] MEDS ORDERED: Albuterol-Ipratrop 3 mg / 0.5 (3 ml) UD INH STA ×3 (18:38→19:55)
--- NOTE | 2016-11-11 18:45 | ED PDOC ---
HPI: SOB/CHF/COPD Time Seen by Provider: 11/11/16 18:29 Chief Complaint (Nursing): Shortness Of Breath Chief Complaint (Provider): Shortness Of Breath History Per: Patient History/Exam Limitations: no limitations Onset/Duration Of Symptoms: Hrs Current Symptoms Are (Timing): Still Present Additional Complaint(s): 60 y/o male, well known to the ED, presents to the emergency department complaining of shortness of breath. He reports that it has been worsening for the last 2 days. 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 Reports non-productive cough. He reports taking albuterol but reports that he cannot afford his advair. Patient says he had not been on steroids over 3 weeks. Denies fever or chest pain. Denies fever. PMD: [facility] Past Medical History Reviewed: Historical Data, Nursing Documentation, Vital Signs Vital Signs: Last Vital Signs Temp 97.9 F 11/11/16 18:58 Pulse 89 11/11/16 18:58 Resp 28 H 11/11/16 18:58 BP 127/66 11/11/16 18:58 Pulse Ox 98 11/11/16 18:58 - Medical History PMH: Asthma, COPD, Sexually Transmitted Disease (Gonorrhea 40 years ago) Denies: HIV, Chronic Kidney Disease - Family History Family History: States: Unknown Family Hx - Home Medications Home Medications: Ambulatory Orders Medication Instructions Recorded Albuterol HFA [Ventolin HFA 90 1 puff INH Q4 PRN #1 08/07/16 mcg/actuation (8 g)] Prednisone [Deltasone] 20 mg PO DAILY #12 tablet 10/24/16 predniSONE [predniSONE Tab] 20 mg PO DAILY 3 Days 11/06/16 - Allergies Allergies/Adverse Reactions: Allergies Allergy/AdvReac Type Severity Reaction Status Date / Time No Known Allergies Allergy Verified 10/05/16 00:08 Review of Systems ROS Statement: Except As Marked, All Systems Reviewed And Found Negative Constitutional: Negative for: Fever Cardiovascular: Negative for: Chest Pain Respiratory: Positive for: Cough (Non-productive), Shortness of Breath Physical Exam - Reviewed Nursing Documentation Reviewed: Yes Vital Signs Reviewed: Yes - Physical Exam Appears: Positive for: Non-toxic, No Acute Distress Head Exam: Positive for: ATRAUMATIC, NORMAL INSPECTION, NORMOCEPHALIC Skin: Positive for: Normal Color, Warm, Dry Neck: Positive for: Normal, Painless ROM Cardiovascular/Chest: Negative for: Regular Rate, Rhythm, Murmur Respiratory: Positive for: Decreased Breath Sounds (Decreased air entry), Other (tachypneic). Negative for: Accessory Muscle Use, Wheezing, Respiratory Distress Gastrointestinal/Abdominal: Positive for: Soft. Negative for: Tenderness, Mass , Distended Back: Positive for: Normal Inspection Extremity: Positive for: Normal ROM Neurologic/Psych: Positive for: Alert, Oriented (x3) - ECG O2 Sat by Pulse Oximetry: 96 (RA) Pulse Ox Interpretation: Normal Medical Decision Making Medical Decision Making: Time: 18:39 Initial impression: COPD exacerbation. Rule out pneumonia Initial plan: --CK-MB --CMP --CPK --Troponin I --CBC w/ diff --Chest x-ray --Duoneb 3 ml INH --Methylprednisolone 125 mg IVP --Nebulizer Treatment --Peak Flow Pre/Post TX --Reevaluation Scribe Attestation: Documented by Ira Brown, acting as a scribe for Cassidy Cantu MD. Provider Scribe Attestation: All medical record entries made by the Scribe were at my direction and personally dictated by me. I have reviewed the chart and agree that the record accurately reflects my personal performance of the history, physical exam, medical decision making, and the department course for this patient. I have also personally directed, reviewed, and agree with the discharge instructions and disposition. 7:00PM EKG shows NSR at 91bpm with normal intervals and no ST changes. Will sign out to Dr. Walsh to follow-up labs, xray and reevaluate after nebulizer treatments. Disposition - Clinical Impression Clinical Impression: COPD exacerbation - Disposition Disposition: Transfer of Care Disposition Time: 19:02 Condition: FAIR Forms: [employer] (Dominican)
[2016-11-11] MEDS ORDERED: Albuterol-Ipratrop 3 mg / 0.5 (3 ml) UD ONE ×2 (19:02→20:01)
--- NOTE | 2016-11-11 19:10 | ED PDOC ---
- Laboratory Results Result Diagrams: 11/12/16 05:00 11/12/16 08:30 - ECG O2 Sat by Pulse Oximetry: 96 (RA) Pulse Ox Interpretation: Normal - Radiology X-Ray: Interpreted by Me, Viewed By Me X-Ray Interpretation: No Acute Disease, COPD - Progress Re-evaluation Time: 20:40 Condition: Re-examined, Improving,but remains with symptoms Medical Decision Making Medical Decision Making: Time: 19:00 --Patient endorsed from Dr. Cantu to me. --Pending labs, treatment, and reevaluation. Time: 19:55 --Duoneb 3 ml INH --Levaquin 500 mg --High Flow Nasal Cannula --Peak Flow Pre/Post TX Time: 20:23 --Upon reevaluation, patient received treatment with no improvement. Scribe Attestation: Documented by Ira Brown, acting as a scribe for Liana Walsh MD. Provider Scribe Attestation: All medical record entries made by the Scribe were at my direction and personally dictated by me. I have reviewed the chart and agree that the record accurately reflects my personal performance of the history, physical exam, medical decision making, and the department course for this patient. I have also personally directed, reviewed, and agree with the discharge instructions and disposition. Disposition Discussed With : Shawn Holley Counseled Patient/Family Regarding: Studies Performed, Diagnosis - Clinical Impression Clinical Impression: COPD exacerbation - POA Present On Arrival: None - Disposition Disposition: Admitted as In-Patient Disposition Time: 20:54 Condition: FAIR
[2016-11-11 19:43] LABS: BASO # 0.1 K/uL (0.0-0.2); BASO % 0.8 % (0.0-2.0); EOS # 0.9 K/uL (0.0-0.7); HEMATOCRIT 41.8 % (35.0-51.0); LYMPH # 1.4 K/uL (1.0-4.3); LYMPH % 12.3 % (20.0-40.0); MEAN CELL VOLUME 95.9 fl (80.0-94.0); MEAN CORPUSCULAR HEMOGLOBIN 31.4 pg (27.0-31.0); MEAN CORPUSCULAR HGB CONC 32.7 g/dL (33.0-37.0); MEAN PLATELET VOLUME 6.7 fl (7.2-11.7); MONO # 1.4 K/uL (0.0-0.8); MONO % 12.7 % (0.0-10.0); NEUT # 7.3 K/uL (1.8-7.0); NEUT % 66.2 % (50.0-75.0); RED CELL DISTRIBUTION WIDTH 13.1 % (11.5-14.5); WHITE BLOOD COUNT 11.1 K/uL (4.8-10.8)
[2016-11-11 19:54] LABS: ALB/GLOB RATIO 1.4 (1.0-2.1); ALKALINE PHOSPHATASE 59 U/L (38-126); ALT/SGPT 24 U/L (21-72); AST/SGOT 30 U/L (17-59); BILIRUBIN,TOTAL 0.5 mg/dl (0.2-1.3); BLOOD UREA NITROGEN 5 mg/dl (9-20); CALCIUM 8.8 mg/dL (8.4-10.2); CARBON DIOXIDE 23 mmol/L (22-30); CHLORIDE 99 mmol/L (98-107); GFR AFRICAN-AMERICAN > 60; GLUCOSE,RANDOM 96 mg/dL (75-110); POTASSIUM 3.5 MMOL/L (3.6-5.0); SODIUM 136 mmol/l (132-148); TOTAL PROTEIN 7.3 G/DL (6.3-8.2)
[2016-11-11] MEDS ORDERED: levoFLOXacin 500 mg in D5W 500 MG/100 ML BAG IVPB STA (19:59)
[2016-11-11] MEDS ORDERED: levoFLOXacin 500 mg in D5W 500 MG/100 ML BAG IVPB ONE (20:02)
[2016-11-11 20:13] LABS: ABG ALLEN TEST YES; ARTERIAL BLOOD GAS HCO3 24.6 mmol/L (21-28); ARTERIAL BLOOD GAS O2 CAPACITY 18.7 mL/dL (16-24); ARTERIAL BLOOD GAS O2 CONTENT 18.3 ML/dL (15-23); ARTERIAL BLOOD GAS PH 7.39 (7.35-7.45); ARTERIAL BLOOD GAS PO2 74 mm/Hg (80-100); ARTERIAL BLOOD HGB O2 SAT 92.4 % (95.0-98.0); CARBOXYHEMOGLOBIN 3.5 % (0.5-1.5); HHB 1.8 % (0.0-5.0); METHEMOGLOBIN 2.2 % (0.0-3.0)
[2016-11-11] MEDS ORDERED: Albuterol HFA 90 mcg/actuation (8 g) INH PRN (21:41)
[2016-11-12] MEDS: Albuterol-Ipratrop 3 mg / 0.5 (3 ml) UD NEB SCH ×5 (01:04→23:39)
--- NOTE | 2016-11-12 05:40 | CP.PCM.HP ---
History of Present Illness - History of Present Illness History of Present Illness: CC/HPI: 60 year old male with PMHx of COPD presents to [facility] with 2 to 3 day history of worsening dyspnea and cough. Pt. states the cough started 2 days ago. THe cough is non-productive. Pt. states taking Advair and Albuterol inhaler is not helping. Pt. reports he also has been experiencing fever and chills. Pt. states he is still smoking. Pt. denies any hemoptysis and hematemesis. ROS: Pt. denies any chest pain, abdominal pain, nausea, vomiting, fall, injury, or trauma PMHx: COPD, Pneumonia PSHx: RT. neck cystectomy Social: ToB-1/2 to1 PPD, ETOH-3-4 beers daily, DRUG-none Home: Lives with roommates Works part-time [employer] Allergies: NKDA Medications: Albuterol Inhaler, Advair 250 Inhaler PMD: [facility]: Dr. Debby Zepeda Course --CK-MB --CMP --CPK --Troponin I --CBC w/ diff --Chest x-ray --Duoneb 3 ml INH --Methylprednisolone 125 mg IVP --Nebulizer Treatment --Peak Flow Pre/Post TX --Reevaluation 7:00PM EKG shows NSR at 91bpm with normal intervals and no ST changes. Will sign out to Dr. Walsh to follow-up labs, xray and reevaluate after nebulizer treatments. 19:55 --Duoneb 3 ml INH --Levaquin 500 mg --High Flow Nasal Cannula --Peak Flow Pre/Post TX Present on Admission - Present on Admission Any Indicators Present on Admission: No History of DVT/PE: No History of Uncontrolled Diabetes: No Urinary Catheter: No Decubitus Ulcer Present: No Review of Systems - Review of Systems Review of Systems: See HPI Past Patient History - Infectious Disease Hx of Infectious Diseases: None - Tetanus Immunizations Tetanus Immunization: Unknown - Past Medical History & Family History Past Medical History?: Yes - Past Social History Smoking Status: Heavy Smoker > 10 Cigarettes Daily - CARDIAC Hx Cardiac Disorders: No - PULMONARY Hx Respiratory Disorders: Yes Hx Asthma: Yes Hx Chronic Obstructive Pulmonary Disease (COPD): Yes Hx Emphysema: Yes - NEUROLOGICAL Hx Neurological Disorder: No - HEENT Hx HEENT Problems: No - RENAL Hx Chronic Kidney Disease: No - ENDOCRINE/METABOLIC Hx Endocrine Disorders: No - HEMATOLOGICAL/ONCOLOGICAL Hx Blood Disorders: No Hx Human Immunodeficiency Virus (HIV): No - INTEGUMENTARY Hx Dermatological Problems: No - MUSCULOSKELETAL/RHEUMATOLOGICAL Hx Musculoskeletal Disorders: No Hx Falls: No - GASTROINTESTINAL Hx Gastrointestinal Disorders: No - GENITOURINARY/GYNECOLOGICAL Hx Genitourinary Disorders: Yes Hx Sexually Transmitted Disorders: Yes (Gonorrhea 40 years ago) - PSYCHIATRIC Hx Psychophysiologic Disorder: No Hx Substance Use: No - SURGICAL HISTORY Hx Surgeries: Yes (neck cyst right side) Other/Comment: right neck cyst removal 5 years ago - ANESTHESIA Hx Anesthesia: Yes Hx Anesthesia Reactions: No Hx Malignant Hyperthermia: No Meds Allergies/Adverse Reactions: Allergies Allergy/AdvReac Type Severity Reaction Status Date / Time No Known Allergies Allergy Verified 10/05/16 00:08 Physical Exam - Constitutional Appears: In Acute Distress - Head Exam Head Exam: ATRAUMATIC, NORMOCEPHALIC - Eye Exam Eye Exam: Normal appearance - ENT Exam ENT Exam: Mucous Membranes Moist - Neck Exam Neck exam: Positive for: Full Rom - Respiratory Exam Respiratory Exam: Decreased Breath Sounds, Wheezes - Cardiovascular Exam Cardiovascular Exam: REGULAR RHYTHM, +S1, +S2 - GI/Abdominal Exam GI & Abdominal Exam: Soft. absent: Tenderness - Extremities Exam Extremities exam: Positive for: pedal pulses present. Negative for: calf tenderness - Neurological Exam Neurological exam: Alert, Oriented x3 Results - Vital Signs Recent Vital Signs: Last Vital Signs Temp 98.9 F 11/12/16 05:29 Pulse 71 11/12/16 05:29 Resp 16 11/12/16 05:29 BP 106/72 11/12/16 05:29 Pulse Ox 97 11/12/16 05:29 - Labs Result Diagrams: 11/11/16 19:30 11/11/16 19:30 Assessment & Plan - Assessment and Plan (Free Text) Assessment: 60 y.o. male with hx of current Tobacco use admitted for COPD exacerbation COPD exacerbation- WBC 11, Afebrile, not associated with increased sputum production - Duoneb Q6 Prashanth - Prednisone 40mg po daily - Advair 250-50 INH Q12 - Levaquin 250mg po qd - Repeat CBC, BMP - Repeat CXR Diet - Regular DVT prophylaxis - SCD
[2016-11-12 06:28] LABS: BASO # 0.1 K/uL (0.0-0.2); BASO % 1.2 % (0.0-2.0); HEMATOCRIT 42.5 % (35.0-51.0); LYMPH # 0.3 K/uL (1.0-4.3); LYMPH % 4.2 % (20.0-40.0); MEAN CELL VOLUME 95.8 fl (80.0-94.0); MEAN CORPUSCULAR HEMOGLOBIN 31.7 pg (27.0-31.0); MEAN CORPUSCULAR HGB CONC 33.1 g/dL (33.0-37.0); MEAN PLATELET VOLUME 6.7 fl (7.2-11.7); MONO # 0.1 K/uL (0.0-0.8); MONO % 1.9 % (0.0-10.0); NEUT # 6.5 K/uL (1.8-7.0); NEUT % 92.7 % (50.0-75.0); PLATELET COUNT 297 K/uL (130-400); RED CELL DISTRIBUTION WIDTH 13.1 % (11.5-14.5)
[2016-11-12] MEDS ORDERED: Potassium Chloride 20 mEq ER Tab PO ONE (07:12)
[2016-11-12] MEDS ORDERED: Albuterol-Ipratrop 3 mg / 0.5 (3 ml) UD INH PRN (08:59)
[2016-11-12 09:17] LABS: BASOPHIL 1 % (0-2); NEUTROPHIL 96 % (42-75); TOTAL CELLS COUNTED 100
[2016-11-12 09:56] LABS: BLOOD UREA NITROGEN 13 mg/dl (9-20); GLUCOSE,RANDOM 134 mg/dL (75-110); SODIUM 137 mmol/l (132-148)
[2016-11-12] MEDS: Fluticasone-Salmeterol 250-50mcg Diskus IH SCH ×2 (09:58→21:47)
[2016-11-12 10:05] LABS: CALCIUM 9.9 mg/dL (8.4-10.2); CARBON DIOXIDE 26 mmol/L (22-30); CHLORIDE 98 mmol/L (98-107); GFR AFRICAN-AMERICAN > 60; POTASSIUM 4.7 MMOL/L (3.6-5.0)
--- NOTE | 2016-11-12 10:41 | RAD ---
HISTORY: shortness of breath COMPARISON: Comparison is made to 10/22/2016 FINDINGS: LUNGS: No active pulmonary disease. PLEURA: No significant pleural effusion identified, no pneumothorax apparent. CARDIOVASCULAR: Normal. OSSEOUS STRUCTURES: No significant abnormalities. VISUALIZED UPPER ABDOMEN: Normal. OTHER FINDINGS: None. IMPRESSION: No active disease. No significant interval change since the previous exam noted.
--- NOTE | 2016-11-12 11:51 | RAD ---
HISTORY: COMPARISON: 11/11/2016 TECHNIQUE: Chest PA and lateral FINDINGS: LINES AND TUBES: None. LUNG AND PLEURA: The lungs are hyperinflated and there is peribronchial thickening with chronic changes in both lungs. No focal consolidation. HEART AND MEDIASTINUM: The heart is not enlarged. The hilar and mediastinal contours are within normal limits. SKELETAL STRUCTURES: The bony structures are within normal limits for the patient's age. VISUALIZED UPPER ABDOMEN: Normal. OTHER FINDINGS: None. IMPRESSION: No active pulmonary disease. COPD.
[2016-11-12] MEDS: Enoxaparin 40 mg Syringe SC SCH (13:52)
[2016-11-12] MEDS: methylPREDNISolone 40 MG in Sodium Chloride 0.9% 50 ML IVPB SCH ×2 (13:53→21:48)
[2016-11-12] MEDS ORDERED: MethylPREDNISolone 40 mg Vial ONE (13:54)
[2016-11-12] MEDS: Azithromycin 500 MG in Sodium Chloride 0.9% 250 ML IVPB SCH (17:25)
--- NOTE | 2016-11-13 00:06 | CP.PCM.CON ---
History of Present Illness - History of Present Illness History of Present Illness: Patient seen and examined; chart reviewed, full consult to follow. Cont same Rx for now, IV steroids, I have added a macrolide IV, Nebulized treatments, HighFlow O2 for now. Will f/u. Dr. Jackson Past Patient History - Infectious Disease Hx of Infectious Diseases: None - Tetanus Immunizations Tetanus Immunization: Unknown - Past Medical History & Family History Past Medical History?: Yes - Past Social History Smoking Status: Heavy Smoker > 10 Cigarettes Daily - CARDIAC Hx Cardiac Disorders: No - PULMONARY Hx Respiratory Disorders: Yes Hx Asthma: Yes Hx Chronic Obstructive Pulmonary Disease (COPD): Yes Hx Emphysema: Yes - NEUROLOGICAL Hx Neurological Disorder: No - HEENT Hx HEENT Problems: No - RENAL Hx Chronic Kidney Disease: No - ENDOCRINE/METABOLIC Hx Endocrine Disorders: No - HEMATOLOGICAL/ONCOLOGICAL Hx Blood Disorders: No Hx Human Immunodeficiency Virus (HIV): No - INTEGUMENTARY Hx Dermatological Problems: No - MUSCULOSKELETAL/RHEUMATOLOGICAL Hx Musculoskeletal Disorders: No Hx Falls: No - GASTROINTESTINAL Hx Gastrointestinal Disorders: No - GENITOURINARY/GYNECOLOGICAL Hx Genitourinary Disorders: Yes Hx Sexually Transmitted Disorders: Yes (Gonorrhea 40 years ago) - PSYCHIATRIC Hx Psychophysiologic Disorder: No Hx Substance Use: No - SURGICAL HISTORY Hx Surgeries: Yes (neck cyst right side) Other/Comment: right neck cyst removal 5 years ago - ANESTHESIA Hx Anesthesia: Yes Hx Anesthesia Reactions: No Hx Malignant Hyperthermia: No Meds Allergies/Adverse Reactions: Allergies Allergy/AdvReac Type Severity Reaction Status Date / Time No Known Allergies Allergy Verified 10/05/16 00:08 - Medications Medications: Current Medications Albuterol/Ipratropium (Duoneb 3 Mg/0.5 Mg (3 Ml) Ud) 3 ml INH RQ4 PRN PRN Reason: Shortness of Breath Albuterol/Ipratropium (Duoneb 3 Mg/0.5 Mg (3 Ml) Ud) 3 ml NEB RQ4 [facility] Last Admin: 11/12/16 23:39 Dose: 3 ml Enoxaparin Sodium (Lovenox) 40 mg SC DAILY [facility] PRN Reason: Protocol Last Admin: 11/12/16 13:52 Dose: 40 mg Azithromycin 500 mg/ Sodium (Chloride) 250 mls @ 250 mls/hr IVPB DAILY [facility] Last Admin: 11/12/16 17:25 Dose: 250 mls/hr Methylprednisolone 40 mg/ (Sodium Chloride) 50 mls @ 100 mls/hr IVPB Q8H [facility] Last Admin: 11/12/16 21:48 Dose: 100 mls/hr Fluticasone/Salmeterol (Advair Diskus 250/50) 1 puff IH Q12 [facility] Last Admin: 11/12/16 21:47 Dose: 1 puff Results - Vital Signs Recent Vital Signs: Last Vital Signs Temp 98.3 F 11/13/16 00:03 Pulse 68 11/13/16 00:03 Resp 18 11/13/16 00:03 BP 110/75 11/13/16 00:03 Pulse Ox 95 11/13/16 00:03 - Labs Result Diagrams: 11/12/16 05:00 11/12/16 08:30 Labs: Laboratory Results - last 24 hr 11/12/16 11/12/16 05:00 08:30 WBC 7.0 RBC 4.44 Hgb 14.1 Hct 42.5 MCV 95.8 H MCH 31.7 H MCHC 33.1 RDW 13.1 Plt Count 297 MPV 6.7 L Neut % (Auto) 92.7 H Lymph % (Auto) 4.2 L [place] % (Auto) 1.9 Eos % (Auto) 0.0 Baso % (Auto) 1.2 Neut # 6.5 Lymph # 0.3 L [place] # 0.1 Eos # 0.0 Baso # 0.1 Neutrophils % (Manual) 96 H Lymphocytes % (Manual) 3 L Monocytes % (Manual) 0 Basophils % (Manual) 1 Platelet Estimate Normal RBC Morphology Normal Sodium 137 Potassium 4.7 Chloride 98 Carbon Dioxide 26 Anion Gap 18 BUN 13 Creatinine 0.5 L Est GFR ( Amer) > 60 Est GFR (Non-Af Amer) > 60 Random Glucose 134 H Calcium 9.9
[2016-11-13] MEDS: methylPREDNISolone 40 MG in Sodium Chloride 0.9% 50 ML IVPB SCH ×2 (04:02→17:28)
[2016-11-13] MEDS: Albuterol-Ipratrop 3 mg / 0.5 (3 ml) UD NEB SCH ×4 (04:51→19:05)
--- NOTE | 2016-11-13 07:33 | CP.PCM.PN ---
Subjective - Date & Time of Evaluation Date of Evaluation: 11/13/16 Time of Evaluation: 07:00 - Subjective Subjective: Patient was seen and examined in Telemetry unit this morning. Patient states that he is less short of breath than yesterday. Still coughing, but improving Afebrile, VS stable WNL. C/w Highflow O2 for now No reported event overnight Objective - Vital Signs/Intake and Output Vital Signs (last 24 hours): Temp Pulse Resp BP Pulse Ox 97.6 F 72 20 106/72 94 L 11/13/16 05:00 11/13/16 05:00 11/13/16 05:00 11/13/16 05:00 11/13/16 05:00 - Medications Medications: Current Medications Albuterol/Ipratropium (Duoneb 3 Mg/0.5 Mg (3 Ml) Ud) 3 ml INH RQ4 PRN PRN Reason: Shortness of Breath Albuterol/Ipratropium (Duoneb 3 Mg/0.5 Mg (3 Ml) Ud) 3 ml NEB RQ4 [facility] Last Admin: 11/13/16 04:51 Dose: 3 ml Enoxaparin Sodium (Lovenox) 40 mg SC DAILY [facility] PRN Reason: Protocol Last Admin: 11/12/16 13:52 Dose: 40 mg Azithromycin 500 mg/ Sodium (Chloride) 250 mls @ 250 mls/hr IVPB DAILY [facility] Last Admin: 11/12/16 17:25 Dose: 250 mls/hr Methylprednisolone 40 mg/ (Sodium Chloride) 50 mls @ 100 mls/hr IVPB Q8H [facility] Last Admin: 11/13/16 04:02 Dose: 100 mls/hr Fluticasone/Salmeterol (Advair Diskus 250/50) 1 puff IH Q12 [facility] Last Admin: 11/12/16 21:47 Dose: 1 puff - Labs Labs: 11/12/16 05:00 11/12/16 08:30 - Constitutional Appears: No Acute Distress - ENT Exam ENT Exam: Mucous Membranes Moist - Respiratory Exam Respiratory Exam: Rhonchi (diffuse wheezes and rhonchi bilateral), Wheezes, NORMAL BREATHING PATTERN - Cardiovascular Exam Cardiovascular Exam: REGULAR RHYTHM, +S1, +S2 - GI/Abdominal Exam GI & Abdominal Exam: Soft, Normal Bowel Sounds. absent: Distended, Guarding, Rigid, Tenderness - Extremities Exam Extremities Exam: Normal Inspection. absent: Calf Tenderness, Pedal Edema - Neurological Exam Neurological Exam: Alert, Awake, Oriented x3 - Skin Skin Exam: Dry, Intact, Normal Color Assessment and Plan - Assessment and Plan (Free Text) Assessment: \60 year old smoker Male with PMHx of COPD admitted to telemetry with COPD exacerbation and respiratory distress. Plan: COPD exacerbation -improving clinically today, however still wheezes and rhonchi B/L in PE -C/w Duoneb by neb, decrease frequency to Q6 hr -F/u clinical status Pre-pos duoneb -c/w advair diskus 1 puff Q12 -c/w steroid, decrease Solumedrol frequency to 40 mg Q 12, preparing pt to switch to PO Prednisone c/w azithromycin as per Pulmunology recommendations -Pulmunology on board, f/u recommendations. Dr. hurtado. -Oxygen Sat: 94-96 % on oxygen H/o Lung nodule Chest CT done on 10/23/16 showed moderate emphysema, and 5 mm pleural base nodule at right middle lobe With 3 months f/u re-assessment suggested Smoker counseling about smoking cessation DVT prophylaxis -c/w Lovenox 40 mg SC daily
[2016-11-13] MEDS: Azithromycin 500 MG in Sodium Chloride 0.9% 250 ML IVPB SCH (09:54)
[2016-11-13] MEDS: Enoxaparin 40 mg Syringe SC SCH (09:56)
[2016-11-13] MEDS: Fluticasone-Salmeterol 250-50mcg Diskus IH SCH ×2 (09:57→21:19)
[2016-11-13] MEDS ORDERED: methylPREDNISolone 40 MG in Sodium Chloride 0.9% 50 ML IVPB SCH (11:15)
[2016-11-13] MEDS: Benzocaine/Menthol (Cepacol) Lozenge PO PRN (17:26)
--- NOTE | 2016-11-13 22:56 | CP.PCM.CON ---
History of Present Illness - History of Present Illness History of Present Illness: Acute Resp Insuff COPD Ex. Tracheobronchitis Tobacco Abuse S/ Feeling a bit better. O/ Afebrile VSS Head Neg Adeno Pos LAUREN Neg JVD Heart RRR NS1S2 Neg M Lungs: Distant BS, mild wheezing bilaterally. Abdo: NT pos bs Ext No c,c,e Neuro GNF a/p Cont supplemental O2 for an o2 sat > 90 %. Avoid Hyperoxia. Cont Abx, monitor WBC#, Temp Curve, and Pancultures. Cont BD via Nebs. Cont IV Steroids. Monitor Peak Flows. PUD AND dvt pX. Will f/u tomorrow. Use this # for all correspondence with me. Thank you. Past Patient History - Infectious Disease Hx of Infectious Diseases: None - Tetanus Immunizations Tetanus Immunization: Unknown - Past Medical History & Family History Past Medical History?: Yes - Past Social History Smoking Status: Heavy Smoker > 10 Cigarettes Daily - CARDIAC Hx Cardiac Disorders: No - PULMONARY Hx Respiratory Disorders: Yes Hx Asthma: Yes Hx Chronic Obstructive Pulmonary Disease (COPD): Yes Hx Emphysema: Yes - NEUROLOGICAL Hx Neurological Disorder: No - HEENT Hx HEENT Problems: No - RENAL Hx Chronic Kidney Disease: No - ENDOCRINE/METABOLIC Hx Endocrine Disorders: No - HEMATOLOGICAL/ONCOLOGICAL Hx Blood Disorders: No Hx Human Immunodeficiency Virus (HIV): No - INTEGUMENTARY Hx Dermatological Problems: No - MUSCULOSKELETAL/RHEUMATOLOGICAL Hx Musculoskeletal Disorders: No Hx Falls: No - GASTROINTESTINAL Hx Gastrointestinal Disorders: No - GENITOURINARY/GYNECOLOGICAL Hx Genitourinary Disorders: Yes Hx Sexually Transmitted Disorders: Yes (Gonorrhea 40 years ago) - PSYCHIATRIC Hx Psychophysiologic Disorder: No Hx Substance Use: No - SURGICAL HISTORY Hx Surgeries: Yes (neck cyst right side) Other/Comment: right neck cyst removal 5 years ago - ANESTHESIA Hx Anesthesia: Yes Hx Anesthesia Reactions: No Hx Malignant Hyperthermia: No Meds Allergies/Adverse Reactions: Allergies Allergy/AdvReac Type Severity Reaction Status Date / Time No Known Allergies Allergy Verified 10/05/16 00:08 - Medications Medications: Current Medications Albuterol/Ipratropium (Duoneb 3 Mg/0.5 Mg (3 Ml) Ud) 3 ml INH RQ4 PRN PRN Reason: Shortness of Breath Albuterol/Ipratropium (Duoneb 3 Mg/0.5 Mg (3 Ml) Ud) 3 ml NEB RQ6 [facility] Last Admin: 11/13/16 19:05 Dose: 3 ml Benzocaine/Menthol (Cepacol Sore Throat) 1 frank PO Q2 PRN PRN Reason: Sore Throat Last Admin: 11/13/16 17:26 Dose: 1 frank Enoxaparin Sodium (Lovenox) 40 mg SC DAILY [facility] PRN Reason: Protocol Last Admin: 11/13/16 09:56 Dose: 40 mg Azithromycin 500 mg/ Sodium (Chloride) 250 mls @ 250 mls/hr IVPB DAILY [facility] Last Admin: 11/13/16 09:54 Dose: 250 mls/hr Methylprednisolone 40 mg/ (Sodium Chloride) 50 mls @ 100 mls/hr IVPB Q12@0500, 1700 [facility] Last Admin: 11/13/16 17:28 Dose: 100 mls/hr Fluticasone/Salmeterol (Advair Diskus 250/50) 1 puff IH Q12 [facility] Last Admin: 11/13/16 21:19 Dose: 1 puff Results - Vital Signs Recent Vital Signs: Last Vital Signs Temp 98.8 F 11/13/16 20:26 Pulse 72 11/13/16 20:26 Resp 18 11/13/16 20:26 BP 119/78 11/13/16 20:26 Pulse Ox 99 11/13/16 20:26 - Labs Result Diagrams: 11/12/16 05:00 11/12/16 08:30
[2016-11-14] MEDS: Albuterol-Ipratrop 3 mg / 0.5 (3 ml) UD NEB SCH ×3 (01:15→13:13)
[2016-11-14] MEDS: methylPREDNISolone 40 MG in Sodium Chloride 0.9% 50 ML IVPB SCH (04:18)
[2016-11-14] MEDS: Fluticasone-Salmeterol 250-50mcg Diskus IH SCH ×2 (09:01→21:14)
[2016-11-14] MEDS: Enoxaparin 40 mg Syringe SC SCH (09:02)
[2016-11-14] MEDS: Azithromycin 500 MG in Sodium Chloride 0.9% 250 ML IVPB SCH (09:02)
[2016-11-14 09:43] LABS: HEMATOCRIT 44.3 % (35.0-51.0); MEAN CELL VOLUME 95.9 fl (80.0-94.0); MEAN CORPUSCULAR HEMOGLOBIN 31.4 pg (27.0-31.0); MEAN CORPUSCULAR HGB CONC 32.7 g/dL (33.0-37.0); RED CELL DISTRIBUTION WIDTH 12.9 % (11.5-14.5); WHITE BLOOD COUNT 5.5 K/uL (4.8-10.8)
[2016-11-14 09:54] LABS: BLOOD UREA NITROGEN 15 mg/dl (9-20); CALCIUM 9.6 mg/dL (8.4-10.2); CARBON DIOXIDE 28 mmol/L (22-30); CHLORIDE 98 mmol/L (98-107); GFR AFRICAN-AMERICAN > 60; GLUCOSE,RANDOM 126 mg/dL (75-110); SODIUM 136 mmol/l (132-148)
[2016-11-14] MEDS ORDERED: Albuterol-Ipratrop 3 mg / 0.5 (3 ml) UD NEB SCH (16:00)
--- NOTE | 2016-11-14 16:15 | CP.PCM.PN ---
Subjective - Date & Time of Evaluation Date of Evaluation: 11/14/16 Time of Evaluation: 08:00 - Subjective Subjective: 60 y/o M examined at bedside. Pt reports feeling a lot better than yesterday. Pt states non-productive cough and dry throat have improved remarkably. Pt eating well. NO fever, headache, CP, SOB, urinary complaints or change in bowel movement. -Yesterday, pt was titrated down from high flow O2 (15 L/min) to 5 L/min. Objective - Vital Signs/Intake and Output Vital Signs (last 24 hours): Temp Pulse Resp BP Pulse Ox 97.4 F L 81 19 121/81 98 11/14/16 16:09 11/14/16 16:09 11/14/16 16:09 11/14/16 16:09 11/14/16 16:09 - Medications Medications: Current Medications Albuterol/Ipratropium (Duoneb 3 Mg/0.5 Mg (3 Ml) Ud) 3 ml INH RQ4 PRN PRN Reason: Shortness of Breath Albuterol/Ipratropium (Duoneb 3 Mg/0.5 Mg (3 Ml) Ud) 3 ml NEB RQ8 [facility] Benzocaine/Menthol (Cepacol Sore Throat) 1 frank PO Q2 PRN PRN Reason: Sore Throat Last Admin: 11/13/16 17:26 Dose: 1 frank Enoxaparin Sodium (Lovenox) 40 mg SC DAILY [facility] PRN Reason: Protocol Last Admin: 11/14/16 09:02 Dose: 40 mg Azithromycin 500 mg/ Sodium (Chloride) 250 mls @ 250 mls/hr IVPB DAILY [facility] Last Admin: 11/14/16 09:02 Dose: 250 mls/hr Methylprednisolone 40 mg/ (Sodium Chloride) 50 mls @ 100 mls/hr IVPB DAILY [facility] Fluticasone/Salmeterol (Advair Diskus 250/50) 1 puff IH Q12 [facility] Last Admin: 11/14/16 09:01 Dose: 1 puff - Labs Labs: 11/14/16 09:00 11/14/16 09:00 - Constitutional Appears: Well, Non-toxic, No Acute Distress - Head Exam Head Exam: NORMAL INSPECTION - Eye Exam Eye Exam: EOMI, Normal appearance, PERRL - ENT Exam ENT Exam: Mucous Membranes Dry - Neck Exam Neck Exam: Full ROM - Respiratory Exam Respiratory Exam: Clear to Ausculation Bilateral, Rhonchi, NORMAL BREATHING PATTERN. absent: Wheezes, Respiratory Distress, Stridor Additional comments: -Walking test: Sat O2% >93 before, during and after a 5 minutes walk - Cardiovascular Exam Cardiovascular Exam: REGULAR RHYTHM Assessment and Plan - Assessment and Plan (Free Text) Assessment: 60 year old smoker Male with PMHx of COPD admitted to telemetry with COPD exacerbation and respiratory distress. Plan: 1. COPD exacerbation -Clinically improving. Still ronchi on exam w/ NO wheezing. -Yesterday, pt was titrated down from high flow O2 (15 L/min) to 5 L/min. -C/w Duoneb by neb, decrease frequency from Q6H to Q8H -c/w advair diskus 1 puff Q12 -c/w corticosteroid, decreased Solumedrol frequency from 40 mg Q 12H to 40 mg daily. -c/w Azithromycin as per Pulmunology recommendations -Pulmunology on board, f/u recommendations. Dr. Jackson. -Walking test: Sat O2% >93 before, during and after a 5 minutes walk -F/u clinical status Pre-pos duoneb 2. H/o Lung nodule -Chest CT done on 10/23/16 showed moderate emphysema, and 5 mm pleural base nodule at right middle lobe -f/u in 3 months was recommended. 3. Smoker -Counseling about smoking cessation 4. DVT prophylaxis -c/w Lovenox 40 mg SC daily
[2016-11-14] MEDS: Benzocaine/Menthol (Cepacol) Lozenge PO PRN (21:18)
--- NOTE | 2016-11-14 23:40 | CP.PCM.PN ---
Subjective - Subjective Subjective: Acute Resp Insuff COPD Ex. Tracheobronchitis Tobacco Abuse S/ Feeling much better. O/ Afebrile VSS Head Neg Adeno Pos LAUREN Neg JVD Heart RRR NS1S2 Neg M Lungs: Distant BS, almost no wheezing at all. Abdo: NT pos bs Ext No c,c,e Neuro GNF a/p Cont supplemental O2 for an o2 sat > 90 %. Avoid Hyperoxia. Cont Abx, monitor WBC#, Temp Curve, and Pancultures. Patient walked around with no desaturation episodes. Can be d/c from [facility] on Medrol Anastacio, PO Zpak, nebulized and HFA albuterol, and f/u with [facility] in a prudent time. Counseling on tobacco abuse. PUD AND dvt pX. Will sign out of case. Reconsult if conditions worsens and needs a f/u. Objective - Vital Signs/Intake and Output Vital Signs (last 24 hours): Temp Pulse Resp BP Pulse Ox 98.0 F 74 19 120/83 97 11/14/16 19:50 11/14/16 19:50 11/14/16 19:50 11/14/16 19:50 11/14/16 19:50 Intake and Output: 11/14/16 11/15/16 18:59 06:59 Intake Total 1250 Balance 1250 - Medications Medications: Current Medications Albuterol/Ipratropium (Duoneb 3 Mg/0.5 Mg (3 Ml) Ud) 3 ml INH RQ4 PRN PRN Reason: Shortness of Breath Benzocaine/Menthol (Cepacol Sore Throat) 1 frank PO Q2 PRN PRN Reason: Sore Throat Last Admin: 11/14/16 21:18 Dose: 1 frank Enoxaparin Sodium (Lovenox) 40 mg SC DAILY [facility] PRN Reason: Protocol Last Admin: 11/14/16 09:02 Dose: 40 mg Azithromycin 500 mg/ Sodium (Chloride) 250 mls @ 250 mls/hr IVPB DAILY [facility] Last Admin: 11/14/16 09:02 Dose: 250 mls/hr Methylprednisolone 40 mg/ (Sodium Chloride) 50 mls @ 100 mls/hr IVPB DAILY [facility] Fluticasone/Salmeterol (Advair Diskus 250/50) 1 puff IH Q12 [facility] Last Admin: 11/14/16 21:14 Dose: 1 puff - Labs Labs: 11/14/16 09:00 11/14/16 09:00
[2016-11-15] MEDS ORDERED: methylPREDNISolone 40 MG in Sodium Chloride 0.9% 50 ML IVPB SCH (09:00)
[2016-11-15] MEDS: Fluticasone-Salmeterol 250-50mcg Diskus IH SCH (09:14)
[2016-11-15] MEDS: Enoxaparin 40 mg Syringe SC SCH (09:15)
[2016-11-15] MEDS: Azithromycin 500 MG in Sodium Chloride 0.9% 250 ML IVPB SCH (09:19)
--- NOTE | 2016-11-15 10:15 | CP.PCM.DIS ---
Provider - Provider Date of Admission: 11/11/16 20:54 Attending physician: Cici Avendano MD Primary care physician: Dr Guardado Consults: Pulm- Dr Jackson Time Spent in preparation of Discharge (in minutes): 25 Diagnosis - Discharge Diagnosis (1) COPD exacerbation Status: Acute Hospital Course - Lab Results Lab Results: Most Recent Lab Values WBC 5.5 K/uL (4.8-10.8) 11/14/16 09:00 RBC 4.62 Mil/uL (4.40-5.90) 11/14/16 09:00 Hgb 14.5 g/dL (12.0-18.0) 11/14/16 09:00 Hct 44.3 % (35.0-51.0) 11/14/16 09:00 MCV 95.9 fl (80.0-94.0) H 11/14/16 09:00 MCH 31.4 pg (27.0-31.0) H 11/14/16 09:00 MCHC 32.7 g/dL (33.0-37.0) L 11/14/16 09:00 RDW 12.9 % (11.5-14.5) 11/14/16 09:00 Plt Count 303 K/uL (130-400) 11/14/16 09:00 MPV 6.7 fl (7.2-11.7) L 11/12/16 05:00 Neut % (Auto) 92.7 % (50.0-75.0) H 11/12/16 05:00 Lymph % (Auto) 4.2 % (20.0-40.0) L 11/12/16 05:00 [place] % (Auto) 1.9 % (0.0-10.0) 11/12/16 05:00 Eos % (Auto) 0.0 % (0.0-4.0) 11/12/16 05:00 Baso % (Auto) 1.2 % (0.0-2.0) 11/12/16 05:00 Neut # 6.5 K/uL (1.8-7.0) 11/12/16 05:00 Lymph # 0.3 K/uL (1.0-4.3) L 11/12/16 05:00 [place] # 0.1 K/uL (0.0-0.8) 11/12/16 05:00 Eos # 0.0 K/uL (0.0-0.7) 11/12/16 05:00 Baso # 0.1 K/uL (0.0-0.2) 11/12/16 05:00 Neutrophils % (Manual) 96 % (42-75) H 11/12/16 05:00 Lymphocytes % (Manual) 3 % (20-50) L 11/12/16 05:00 Monocytes % (Manual) 0 % (0-10) 11/12/16 05:00 Basophils % (Manual) 1 % (0-2) 11/12/16 05:00 Platelet Estimate Normal (NORMAL) 11/12/16 05:00 RBC Morphology Normal (NORMAL) 11/12/16 05:00 pCO2 41 mm/Hg (35-45) 11/11/16 20:09 pO2 74 mm/Hg (80-100) L 11/11/16 20:09 HCO3 24.6 mmol/L (21-28) 11/11/16 20:09 ABG pH 7.39 (7.35-7.45) 11/11/16 20:09 ABG Total CO2 26.1 mmol/L (22-28) 11/11/16 20:09 ABG O2 Saturation 98.1 % (95-98) H 11/11/16 20:09 ABG O2 Content 18.3 ML/dL (15-23) 11/11/16 20:09 ABG Base Excess -0.2 mmol/L (-2.0-3.0) 11/11/16 20:09 ABG Hemoglobin 14.1 g/dL (11.7-17.4) 11/11/16 20:09 ABG Carboxyhemoglobin 3.5 % (0.5-1.5) H 11/11/16 20:09 POC ABG HHb (Measured) 1.8 % (0.0-5.0) 11/11/16 20:09 ABG Methemoglobin 2.2 % (0.0-3.0) 11/11/16 20:09 ABG O2 Capacity 18.7 mL/dL (16-24) 11/11/16 20:09 Otoniel Test Yes 11/11/16 20:09 A-a O2 Difference 24.0 mm/Hg 11/11/16 20:09 Hgb O2 Saturation 92.4 % (95.0-98.0) L 11/11/16 20:09 FiO2 21.0 % 11/11/16 20:09 Sodium 136 mmol/l (132-148) 11/14/16 09:00 Potassium 4.0 MMOL/L (3.6-5.0) 11/14/16 09:00 Chloride 98 mmol/L (98-107) 11/14/16 09:00 Carbon Dioxide 28 mmol/L (22-30) 11/14/16 09:00 Anion Gap 14 (10-20) 11/14/16 09:00 BUN 15 mg/dl (9-20) 11/14/16 09:00 Creatinine 0.5 mg/dL (0.8-1.5) L 11/14/16 09:00 Est GFR ( Amer) > 60 11/14/16 09:00 Est GFR (Non-Af Amer) > 60 11/14/16 09:00 Random Glucose 126 mg/dL (75-110) H 11/14/16 09:00 Calcium 9.6 mg/dL (8.4-10.2) 11/14/16 09:00 Total Bilirubin 0.5 mg/dl (0.2-1.3) 11/11/16 19:30 AST 30 U/L (17-59) 11/11/16 19:30 ALT 24 U/L (21-72) 11/11/16 19:30 Alkaline Phosphatase 59 U/L (38-126) 11/11/16 19:30 Total Creatine Kinase 63 U/L (55-170) 11/11/16 19:30 CK-MB (Mass) 1.57 ng/mL (0.0-3.38) 11/11/16 19:30 Troponin I < 0.0120 ng/mL (0.00-0.120) 11/11/16 19:30 Total Protein 7.3 G/DL (6.3-8.2) 11/11/16 19:30 Albumin 4.3 g/dL (3.5-5.0) 11/11/16 19:30 Globulin 3.1 gm/dL (2.2-3.9) 11/11/16 19:30 Albumin/Globulin Ratio 1.4 (1.0-2.1) 11/11/16 19:30 - Hospital Course Hospital Course: 60 yo M w PMHx of COPD was admitted for 2-3 day h/o worsening dyspnea w non- productive cough. He was started on high flow O2 that was tapered down before his last admission day. Duoneb treatments were tapered down from Q4H [facility] to PRN. He denied any dyspnea or SOB, during and after his walking test, while his O2% never dropped below 93%. -appt w Dr Guardado on ThursdayNov 17 at 10am -given script for Pulmonary Function Test -Azithromycin 250mg PO Daily 1 tab to complete 5 day course -Prednisone 20mg PO Daily 5 tabs to complete pulmonary course -Albuterol Inhaler refilled -Advair 250-50 refilled Discharge Exam - Head Exam Head Exam: ATRAUMATIC, NORMAL INSPECTION, NORMOCEPHALIC - Eye Exam Eye Exam: EOMI Pupil Exam: PERRL - ENT Exam ENT Exam: Mucous Membranes Moist - Neck Exam Neck exam: Full Rom - Respiratory Exam Respiratory Exam: Rhonchi (minimally lower lobes), Wheezes (minimally throughout ), NORMAL BREATHING PATTERN. absent: Respiratory Distress - Cardiovascular Exam Cardiovascular Exam: REGULAR RHYTHM - GI/Abdominal Exam GI & Abdominal Exam: Soft, Unremarkable. absent: Tenderness - Extremities Exam Additional comments: no calf tenderness, no pedal edema - Neurological Exam Neurological exam: Alert, CN II-XII Intact, Oriented x3 - Skin Skin Exam: Dry, Intact, Normal Color, Warm Discharge Plan - Discharge Medications Prescriptions: Albuterol HFA [Ventolin HFA 90 mcg/actuation (8 g)] 1 puff INH Q4 PRN #1 PRN Reason: Shortness Of Breath Fluticasone/Salmeterol 250/50 [Advair Diskus 250/50] 1 puff IH Q12 30 Days predniSONE [predniSONE Tab] 20 mg PO DAILY 5 Days - Follow Up Plan Condition: FAIR Disposition: HOME/ ROUTINE Instructions: COPD (Chronic Obstructive Pulmonary Disease) (DC) Additional Instructions: f/u with PMD Dr Guardado on ThursdayNov 17 at 10am Have Pulmonary Function Test performed Azithromycin 250mg PO Daily 1 tab to complete 5 day course Prednisone 20mg PO Daily 5 tabs to complete pulmonary course Provided refill of Albuterol rescue inhalor Provided refill of Advair 250-50 return to ED if severe shortness of breath, pain with breathing, or frequent cough with increasing sputum Referrals: [facility] [place] [Outside]
[2016-11-15 12:11] VITALS: BP 113/75; PULSE 82; RESP 16; TEMP 97.4; O2SAT 97
== END 2016-11-15 13:52 | disposition home or self-care (01) | DRG 88 ==
LOC: H.ER 18:10 → H.ERHOLD 20:54 → H.TEL 23:11
PROVIDERS: ADMIT Family Medicine Geriatric Medicine; ATTEND Family Medicine Geriatric Medicine
PROC: 3E0F73Z Introduction of Anti-inflammatory into Respiratory Tract, Via Natural or Artificial Opening (ICD-10-PCS; principal; 2016-11-11)
DX: J44.1 Chronic obstructive pulmonary disease with (acute) exacerbation (principal); R91.1 Solitary pulmonary nodule; F17.210 Nicotine dependence, cigarettes, uncomplicated; K27.9 Peptic ulcer, site unspecified, unspecified as acute or chronic, without hemorrhage or perforation

== ENCOUNTER 2016-11-30 02:50 | Emergency (ER) | payer SELFPAY ==
[2016-11-30 02:51] VITALS: BMI 20.9
[2016-11-30 03:05] VITALS: TEMP 97.4
[2016-11-30] MEDS ORDERED: Albuterol-Ipratrop 3 mg / 0.5 (3 ml) UD INH STA ×3 (03:12→03:25)
[2016-11-30] MEDS ORDERED: Magnesium Sulfate 2 gm/50 ml 2 GM/50 ML BAG IV STA (03:25)
--- NOTE | 2016-11-30 03:40 | ED PDOC ---
HPI: SOB/CHF/COPD Time Seen by Provider: 11/30/16 02:52 Chief Complaint (Nursing): Shortness Of Breath Chief Complaint (Provider): Shortness of Breath History Per: Patient History/Exam Limitations: no limitations Onset/Duration Of Symptoms: Other (1 Day ) Quality: Tightness Associated Symptoms: denies: Fever Additional Complaint(s): 61 year old male, past medical history of COPD, presents to the ED with worsening shortness of breath over the past day despite using inhaler. He describes a dry cough. Denies associated fever, but endorses chest tightness. Past Medical History Reviewed: Historical Data, Nursing Documentation, Vital Signs Vital Signs: Last Vital Signs Temp 97.4 F L 11/30/16 03:02 Pulse 84 11/30/16 05:05 Resp 20 11/30/16 05:05 BP 118/61 11/30/16 05:05 Pulse Ox 93 L 11/30/16 05:05 - Medical History PMH: Asthma, COPD, Emphysema, Sexually Transmitted Disease (Gonorrhea 40 years ago) Denies: HIV, Chronic Kidney Disease - Surgical History Surgical History: No Surg Hx - Family History Family History: States: Unknown Family Hx - Social History Current smoker - smoking cessation education provided: No Alcohol: None Drugs: Denies - Home Medications Home Medications: Ambulatory Orders Medication Instructions Recorded Albuterol HFA [Ventolin HFA 90 1 puff INH Q4 PRN #1 11/15/16 mcg/actuation (8 g)] Fluticasone/Salmeterol 250/50 1 puff IH Q12 30 Days puff 11/15/16 [Advair Diskus 250/50] predniSONE [predniSONE Tab] 20 mg PO DAILY 5 Days tab 11/15/16 Methylprednisolone [Medrol Dosepak] 4 mg PO ASDIR #1 pkg 11/30/16 - Allergies Allergies/Adverse Reactions: Allergies Allergy/AdvReac Type Severity Reaction Status Date / Time No Known Allergies Allergy Verified 10/05/16 00:08 Review of Systems Constitutional: Negative for: Fever Respiratory: Positive for: Cough, Shortness of Breath Physical Exam - Reviewed Nursing Documentation Reviewed: Yes Vital Signs Reviewed: Yes - Physical Exam Appears: Positive for: Non-toxic Head Exam: Positive for: ATRAUMATIC, NORMOCEPHALIC Skin: Positive for: Normal Color, Warm, Dry Eye Exam: Positive for: EOMI, Normal appearance, PERRL Neck: Positive for: Normal, Painless ROM, Supple Cardiovascular/Chest: Positive for: Regular Rate, Rhythm, Murmur Respiratory: Positive for: Respiratory Distress (Mild), Other (Decreased air entry bilaterally, Diffuse expiratory wheezing bilaterally) Gastrointestinal/Abdominal: Positive for: Normal Exam, Soft. Negative for: Tenderness Back: Positive for: Normal Inspection. Negative for: L CVA Tenderness, R CVA Tenderness, Other (midline tenderness) Extremity: Positive for: Normal ROM. Negative for: Pedal Edema, Deformity Neurologic/Psych: Positive for: Alert, Oriented. Negative for: Motor/Sensory Deficits - Laboratory Results Result Diagrams: 11/30/16 03:20 11/30/16 03:20 - ECG O2 Sat by Pulse Oximetry: 95 - Critical Care Total Time (In Min): 30 Medical Decision Making Medical Decision Making: Impression: 61 year old male with COPD exacerbation Plan: Labs CXR Trial dual Nebs CXR shows COPD changes but no infiltrates, cardiomegaly, or pneumothorax. Labs reviewed show no clinically significant abnormalities Patient reports marked improvement in symptoms and is stable for discharge home. Pt provided smoking cessation counselling DX COPD Exacerbation Condition is improved FU [address] Flynn Min (Pt's PCP) Scribe Attestation: Documented by Gurpreet Bowling acting as a scribe for Bigg Bangura MD. Scribe Attestation: All medical record entries made by the Scribe were at my direction and personally dictated by me. I have reviewed the chart and agree that the record accurately reflects my personal performance of the history, physical exam, medical decision making, and the department course for this patient. I have also personally directed, reviewed, and agree with the discharge instructions and disposition. Disposition - Clinical Impression Clinical Impression: COPD exacerbation - Patient ED Disposition Is Patient to be Admitted: No - Disposition Disposition: Routine/Home Disposition Time: 05:08 Condition: IMPROVED Prescriptions: Methylprednisolone [Medrol Dosepak] 4 mg PO ASDIR #1 pkg Instructions: COPD (Chronic Obstructive Pulmonary Disease) (ED) Forms: [employer] (Dominican)
[2016-11-30 03:42] LABS: BASO % 0.5 % (0.0-2.0); EOS # 0.5 K/uL (0.0-0.7); EOS % 5.2 % (0.0-4.0); HEMATOCRIT 41.5 % (35.0-51.0); LYMPH # 1.2 K/uL (1.0-4.3); LYMPH % 13.5 % (20.0-40.0); MEAN CELL VOLUME 93.9 fl (80.0-94.0); MEAN CORPUSCULAR HEMOGLOBIN 31.9 pg (27.0-31.0); MEAN PLATELET VOLUME 6.7 fl (7.2-11.7); MONO # 0.9 K/uL (0.0-0.8); MONO % 9.8 % (0.0-10.0); NEUT # 6.4 K/uL (1.8-7.0); NRBC % 0.1 % (0.0-0.0); RED CELL DISTRIBUTION WIDTH 13.4 % (11.5-14.5); WHITE BLOOD COUNT 9.1 K/uL (4.8-10.8)
[2016-11-30] MEDS ORDERED: Albuterol-Ipratrop 3 mg / 0.5 (3 ml) UD ONE (03:42)
[2016-11-30] MEDS ORDERED: Magnesium Sulfate 2 gm/50 ml 2 GM/50 ML BAG ONE (03:43)
[2016-11-30 04:40] LABS: BLOOD UREA NITROGEN 6 mg/dl (9-20); CALCIUM 9.4 mg/dL (8.4-10.2); CARBON DIOXIDE 24 mmol/L (22-30); CHLORIDE 106 mmol/L (98-107); GFR AFRICAN-AMERICAN > 60; GLUCOSE,RANDOM 87 mg/dL (75-110); POTASSIUM 3.7 MMOL/L (3.6-5.0); SODIUM 142 mmol/l (132-148)
[2016-11-30 05:05] VITALS: BP 118/61; PULSE 84; RESP 20
[2016-11-30 05:12] VITALS: O2SAT 95
--- NOTE | 2016-11-30 09:37 | CARD ---
APPROVED REPORT EKG Measurement Heart [id number] <Conclusion> Normal sinus rhythm Nonspecific ST abnormality Abnormal ECG
--- NOTE | 2016-11-30 11:18 | RAD ---
HISTORY: SOB COMPARISON: Comparison is made to 11/12/2016 FINDINGS: LUNGS: Hyperinflation of the lungs is again noted. No evidence of new infiltrate or consolidation in the lungs PLEURA: No significant pleural effusion identified, no pneumothorax apparent. CARDIOVASCULAR: Normal. OSSEOUS STRUCTURES: No significant abnormalities. VISUALIZED UPPER ABDOMEN: Normal. OTHER FINDINGS: None. IMPRESSION: No active disease. No significant interval change.
== END 2016-11-30 05:06 | disposition home or self-care (01) ==
LOC: H.ER 02:50
DX: J44.1 Chronic obstructive pulmonary disease with (acute) exacerbation (principal)
CPT/HCPCS: 71010; 80048; 83880; 84484; 85025; 93005; 94640; 96365; 96375; 99284; J2930

== ENCOUNTER 2016-12-18 22:39 | Emergency (ER) | payer SELFPAY ==
[2016-12-18 22:39] VITALS: BMI 20.9
[2016-12-18] MEDS ORDERED: Magnesium Sulfate 2 GM in Sodium Chloride 0.9% 100 ML IV STA (22:47)
[2016-12-18] MEDS ORDERED: Albuterol-Ipratrop 3 mg / 0.5 (3 ml) UD INH STA ×3 (22:47→22:48)
[2016-12-18] MEDS ORDERED: Albuterol-Ipratrop 3 mg / 0.5 (3 ml) UD ONE ×2 (22:59→23:00)
[2016-12-18 23:09] LABS: BASO # 0.1 K/uL (0.0-0.2); BASO % 0.6 % (0.0-2.0); EOS # 1.6 K/uL (0.0-0.7); HEMATOCRIT 43.6 % (35.0-51.0); LYMPH # 1.7 K/uL (1.0-4.3); LYMPH % 18.1 % (20.0-40.0); MEAN CELL VOLUME 94.8 fl (80.0-94.0); MEAN CORPUSCULAR HEMOGLOBIN 31.8 pg (27.0-31.0); MEAN CORPUSCULAR HGB CONC 33.5 g/dL (33.0-37.0); MONO # 1.2 K/uL (0.0-0.8); MONO % 12.8 % (0.0-10.0); NEUT # 4.8 K/uL (1.8-7.0); NEUT % 51.5 % (50.0-75.0); NRBC % 0.1 % (0.0-0.0); RED CELL DISTRIBUTION WIDTH 13.2 % (11.5-14.5); WHITE BLOOD COUNT 9.4 K/uL (4.8-10.8)
[2016-12-18 23:19] LABS: PARTIAL THROMBOPLASTIN TIME 34.4 Seconds (25.6-37.1)
[2016-12-18 23:21] LABS: ALB/GLOB RATIO 1.4 (1.0-2.1); ALKALINE PHOSPHATASE 64 U/L (38-126); ALT/SGPT 31 U/L (21-72); AST/SGOT 44 U/L (17-59); BILIRUBIN,TOTAL 0.6 mg/dl (0.2-1.3); BLOOD UREA NITROGEN 3 mg/dl (9-20); CALCIUM 9.3 mg/dL (8.4-10.2); CARBON DIOXIDE 30 mmol/L (22-30); CHLORIDE 99 mmol/L (98-107); GFR AFRICAN-AMERICAN > 60; GLUCOSE,RANDOM 106 mg/dL (75-110); POTASSIUM 3.8 MMOL/L (3.6-5.0); SODIUM 139 mmol/l (132-148); TOTAL PROTEIN 7.6 G/DL (6.3-8.2)
--- NOTE | 2016-12-18 23:28 | ED PDOC ---
HPI: SOB/CHF/COPD Time Seen by Provider: 12/18/16 22:46 Chief Complaint (Nursing): Respiratory Distress Chief Complaint (Provider): Shortness of breath History Per: Patient History/Exam Limitations: no limitations Onset/Duration Of Symptoms: Hrs (4) Current Symptoms Are (Timing): Still Present Quality: Tightness Current Respiratory Medications: See Home Med List Severity: Mild Associated Symptoms: Productive Cough. 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 Patient reports using his nebulizer treatment at home this evening with no relief. Reports a sense of tightness associated with the SOB with dry cough and wheezing. Denies fever, vomiting, or diarrhea. No chest pain or diaphoresis. Past Medical History Reviewed: Historical Data, Nursing Documentation, Vital Signs Vital Signs: Last Vital Signs Temp 97.8 F 12/18/16 22:42 Pulse 73 12/19/16 00:03 Resp 18 12/19/16 00:03 BP 116/84 12/19/16 00:03 Pulse Ox 95 12/19/16 00:03 - Medical History PMH: Asthma, COPD, Emphysema, Sexually Transmitted Disease (Gonorrhea 40 years ago) Denies: HIV, Chronic Kidney Disease - Family History Family History: States: Unknown Family Hx - Home Medications Home Medications: Ambulatory Orders Medication Instructions Recorded Albuterol HFA [Ventolin HFA 90 1 puff INH Q4 PRN #1 11/15/16 mcg/actuation (8 g)] Fluticasone/Salmeterol 250/50 1 puff IH Q12 30 Days puff 11/15/16 [Advair Diskus 250/50] predniSONE [predniSONE Tab] 20 mg PO DAILY 5 Days tab 11/15/16 Methylprednisolone [Medrol Dosepak] 4 mg PO ASDIR #1 pkg 11/30/16 Methylprednisolone [Medrol Dosepak] 4 mg PO ASDIR #1 pkg 12/19/16 - Allergies Allergies/Adverse Reactions: Allergies Allergy/AdvReac Type Severity Reaction Status Date / Time No Known Allergies Allergy Verified 10/05/16 00:08 Review of Systems ROS Statement: Except As Marked, All Systems Reviewed And Found Negative Constitutional: Negative for: Fever, Sweats Cardiovascular: Negative for: Chest Pain Respiratory: Positive for: Cough (Dry), Shortness of Breath, Wheezing Gastrointestinal: Negative for: Vomiting, Diarrhea Physical Exam - Reviewed Nursing Documentation Reviewed: Yes Vital Signs Reviewed: Yes - Physical Exam Appears: Positive for: Well, Non-toxic, In Acute Distress (Mild distress) Head Exam: Positive for: ATRAUMATIC, NORMAL INSPECTION, NORMOCEPHALIC Skin: Positive for: Normal Color, Warm, DRY ENT: Positive for: Normal ENT Inspection Cardiovascular/Chest: Positive for: Regular Rate, Rhythm, Other (subcostal retractions) Respiratory: Positive for: Rhonchi (Bilateral diffuse expiratory rhonchi), Wheezing (Bilateral diffuse expiratory wheezes). Negative for: Rales Gastrointestinal/Abdominal: Positive for: Soft. 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 Plans: * EKG * Blood labs * Albuterol * Prednisolone * Critical care DDx: COPD exacerbation and respiratory distress 00:30. Significant improvement of symptoms. Labs within normal limits. Patient is stable. Scribe Attestation: Documented by Simba Jain, acting as a scribe for Bigg Bangura. Provider Scribe Attestation: All medical record entries made by the Scribe were at my direction and personally dictated by me. I have reviewed the chart and agree that the record accurately reflects my personal performance of the history, physical exam, medical decision making, and the department course for this patient. I have also personally directed, reviewed, and agree with the discharge instructions and disposition. Disposition - Clinical Impression Clinical Impression: COPD exacerbation - Disposition Disposition Time: 00:30 (Significant improvement of symptoms. Labs within normal limits. Patient is stable.) Condition: IMPROVED Prescriptions: Methylprednisolone [Medrol Dosepak] 4 mg PO ASDIR #1 pkg Instructions: Emphysema (ED) Forms: [employer] (Tongan) Critical Care Time - Critical Care Note Total Time (in mins): 30 Comments: COPD exacerbation and respiratory distress Documented critical care: time excludes all time spent performing seperately billable procedures.
[2016-12-19 00:59] VITALS: BP 120/80; PULSE 75; RESP 16; TEMP 97.6; O2SAT 96
--- NOTE | 2016-12-20 06:40 | CARD ---
APPROVED REPORT EKG Measurement Heart [id number] <Conclusion> Normal sinus rhythm Normal ECG
== END 2016-12-19 00:58 | disposition home or self-care (01) ==
LOC: H.ER 22:39
DX: J44.1 Chronic obstructive pulmonary disease with (acute) exacerbation (principal)
CPT/HCPCS: 80053; 83880; 84484; 85025; 85610; 85730; 93005; 94150; 94640; 96374; 99285; J2930; J3475

== ENCOUNTER 2017-01-15 22:54 | Emergency (ER) | payer SELFPAY ==
[2017-01-15 22:54] VITALS: BMI 20.9
[2017-01-15] MEDS ORDERED: Albuterol-Ipratrop 3 mg / 0.5 (3 ml) UD ONE (23:17)
--- NOTE | 2017-01-15 23:27 | ED PDOC ---
HPI: SOB/CHF/COPD Time Seen by Provider: 01/15/17 23:04 Chief Complaint (Nursing): Respiratory Distress Chief Complaint (Provider): SOB History Per: Patient Additional Complaint(s): 61-year-old male with history of COPD presents to emergency department with shortness of breath that started yesterday. Patient has been doing albuterol treatments at home which have not helped. He denies any coughing or chest pain. No fever or chills. Patient states he does not use oxygen at home. Past Medical History Reviewed: Historical Data, Nursing Documentation, Vital Signs Vital Signs: Last Vital Signs Temp Pulse 106 H 01/15/17 23:00 Resp 30 H 01/15/17 23:00 BP 135/92 H 01/15/17 23:00 Pulse Ox 94 L 01/16/17 01:18 - Medical History PMH: Asthma, COPD, Emphysema - Surgical History Other surgeries: cyst removal from right side of neck - Family History Family History: States: No Known Family Hx - Living Arrangements Living Arrangements: With Family - Social History Current smoker - smoking cessation education provided: Yes (1 cigarette a day) Ex-Smoker (has not smoked in the last 12 months): Yes (ppd smoker for several years) Alcohol: Social Drugs: Denies - Home Medications Home Medications: Ambulatory Orders Medication Instructions Recorded Albuterol HFA [Ventolin HFA 90 1 puff INH Q4 PRN #1 11/15/16 mcg/actuation (8 g)] Fluticasone/Salmeterol 250/50 1 puff IH Q12 30 Days puff 11/15/16 [Advair Diskus 250/50] predniSONE [predniSONE Tab] 20 mg PO DAILY 5 Days tab 11/15/16 Methylprednisolone [Medrol Dosepak] 4 mg PO ASDIR #1 pkg 11/30/16 Methylprednisolone [Medrol Dosepak] 4 mg PO ASDIR #1 pkg 12/19/16 Albuterol HFA [Ventolin HFA 90 1 puff IH ASDIR #1 unit 01/16/17 mcg/actuation (8 g)] Prednisone 50 mg PO DAILY #5 tablet 01/16/17 - Allergies Allergies/Adverse Reactions: Allergies Allergy/AdvReac Type Severity Reaction Status Date / Time No Known Allergies Allergy Verified 10/05/16 00:08 Curb-65 Severity Score - CURB-65 Severity Score Confusion: No Bun >19mg/dl (>7mmol/L): No Respiratory Rate greater than/equal to 30: Yes Systolic BP <90 or Diastolic BP less than/equal 60mmHg: No Age >64: No Curb-65 Score: 1 Percentage 30-day mortality: 2.7% Wells Criteria for PE - Wells Criteria for Pulmonary Embolism Clinical Signs and Symptoms of DVT: No P.E is #1 Diagnosis, or Equally Likely: No Heart Rate >100: No Immobilization at least 3 days;Surgery previous 4 weeks: No Previous, objectively diagnosed PE or DVT: No Hemoptysis: No Malignancy w/treatment within 6 months, or palliative: No Total Score: 0 Review of Systems ROS Statement: Except As Marked, All Systems Reviewed And Found Negative Cardiovascular: Negative for: Chest Pain Respiratory: Positive for: Shortness of Breath, SOB with Exertion, Pleuritic Pain, Wheezing. Negative for: Cough, Hemoptysis, Sputum Gastrointestinal: Negative for: Nausea, Vomiting Neurological: Negative for: Headache, Dizziness Physical Exam - Reviewed Nursing Documentation Reviewed: Yes Vital Signs Reviewed: Yes - Physical Exam Appears: Positive for: Well Skin: Positive for: Normal Color. Negative for: Rash Eye Exam: Positive for: Normal appearance Cardiovascular/Chest: Positive for: Regular Rate, Rhythm Respiratory: Positive for: Accessory Muscle Use, Rhonchi, Wheezing (Inspiratory and expiratory wheezing) Back: Negative for: Vertebral Tenderness Extremity: Negative for: Pedal Edema Neurologic/Psych: Positive for: Alert, Oriented - Laboratory Results Result Diagrams: 01/15/17 23:30 01/15/17 23:30 - ECG O2 Sat by Pulse Oximetry: 94 Pulse Ox Interpretation: Normal - Other Rad CXR X-Ray: Interpreted by Me, Viewed By Me X-Ray Interpretation: emphysema, no acute finding Medical Decision Making Medical Decision Makin-year-old male with COPD exacerbation. Plan: CBC CMP Trop BNP KG CXR IV solumedrol Duoneb x 3 Patient feels much better after medications administered. Oxygen saturation is improved at 98-99% on room air. Patient will be discharged with prescription for albuterol inhaler and prednisone. He was instructed to follow-up in one to 2 days with primary care doctor. Patient is aware he can return to ED any time if acutely worse. Repeat vital signs prior to discharge markedly improved. Disposition - Clinical Impression Clinical Impression: COPD exacerbation - Patient ED Disposition Is Patient to be Admitted: No Counseled Patient/Family Regarding: Studies Performed, Diagnosis, Need For Followup, Rx Given - Disposition Referrals: Cici Avendano MD [Primary Care Provider] - Disposition: Routine/Home Disposition Time: 01:25 Condition: IMPROVED Additional Instructions: Take prescription meds as directed. Follow-up in one to 2 days with primary care doctor. Prescriptions: Albuterol HFA [Ventolin HFA 90 mcg/actuation (8 g)] 1 puff IH ASDIR #1 unit Prednisone 50 mg PO DAILY #5 tablet Instructions: COPD (Chronic Obstructive Pulmonary Disease) (ED) Forms: [employer] (Polish) Results - Lab Results Lab Results: 01/15/17 01/15/17 23:30 23:30 WBC 8.0 RBC 4.37 L Hgb 13.6 Hct 41.1 MCV 94.1 H MCH 31.2 H MCHC 33.2 RDW 13.6 Plt Count 326 MPV 8.0 Neut % (Auto) 52.6 Lymph % (Auto) 20.3 [place] % (Auto) 12.4 H Eos % (Auto) 13.7 H Baso % (Auto) 1.0 Neut # 4.2 Lymph # 1.6 [place] # 1.0 H Eos # 1.1 H Baso # 0.1 Sodium 139 Potassium 3.4 L Chloride 99 Carbon Dioxide 29 Anion Gap 14 BUN 4 L Creatinine 0.5 L Est GFR ( Amer) > 60 Est GFR (Non-Af Amer) > 60 Random Glucose 88 Calcium 9.1 Total Bilirubin 0.4 AST 69 H D ALT 57 Alkaline Phosphatase 62 Troponin I < 0.0120 NT-Pro-B Natriuret Pep 106 Total Protein 7.5 Albumin 4.3 Globulin 3.2 Albumin/Globulin Ratio 1.4
[2017-01-15] MEDS ORDERED: Albuterol-Ipratrop 3 mg / 0.5 (3 ml) UD INH STA (23:29)
[2017-01-16 00:46] LABS: BASO # 0.1 K/uL (0.0-0.2); EOS # 1.1 K/uL (0.0-0.7); EOS % 13.7 % (0.0-4.0); HEMATOCRIT 41.1 % (35.0-51.0); LYMPH # 1.6 K/uL (1.0-4.3); LYMPH % 20.3 % (20.0-40.0); MEAN CELL VOLUME 94.1 fl (80.0-94.0); MEAN CORPUSCULAR HEMOGLOBIN 31.2 pg (27.0-31.0); MEAN CORPUSCULAR HGB CONC 33.2 g/dL (33.0-37.0); MONO % 12.4 % (0.0-10.0); NEUT # 4.2 K/uL (1.8-7.0); NEUT % 52.6 % (50.0-75.0); RED CELL DISTRIBUTION WIDTH 13.6 % (11.5-14.5)
[2017-01-16 00:58] LABS: ALB/GLOB RATIO 1.4 (1.0-2.1); ALKALINE PHOSPHATASE 62 U/L (38-126); ALT/SGPT 57 U/L (21-72); AST/SGOT 69 U/L (17-59); BILIRUBIN,TOTAL 0.4 mg/dl (0.2-1.3); BLOOD UREA NITROGEN 4 mg/dl (9-20); CALCIUM 9.1 mg/dL (8.4-10.2); CARBON DIOXIDE 29 mmol/L (22-30); CHLORIDE 99 mmol/L (98-107); GFR AFRICAN-AMERICAN > 60; GLUCOSE,RANDOM 88 mg/dL (75-110); POTASSIUM 3.4 MMOL/L (3.6-5.0); SODIUM 139 mmol/l (132-148); TOTAL PROTEIN 7.5 G/DL (6.3-8.2)
[2017-01-16 01:35] VITALS: BP 139/79; PULSE 82; RESP 18; TEMP 98.1
[2017-01-16 01:38] VITALS: O2SAT 94
--- NOTE | 2017-01-16 11:23 | RAD ---
HISTORY: sob COMPARISON: Comparison made with chest radiograph and CT scan chest 11/30/2016 hand 10/23/2016 respectively. FINDINGS: LUNGS: Lungs remain hyperinflated consistent with underlying emphysema. There appears to be some minimal scattered parenchymal scarring changes both lung bases. No focal consolidation. PLEURA: No significant pleural effusion identified, no pneumothorax apparent. CARDIOVASCULAR: Normal. OSSEOUS STRUCTURES: No significant abnormalities. VISUALIZED UPPER ABDOMEN: Normal. OTHER FINDINGS: None. IMPRESSION: Emphysema. There appears to be some minimal scarring changes both lung bases. No focal consolidation
--- NOTE | 2017-01-16 22:42 | CARD ---
APPROVED REPORT EKG Measurement Heart [id number] <Conclusion> Normal sinus rhythm Normal ECG
== END 2017-01-16 02:01 | disposition home or self-care (01) ==
LOC: H.ER 22:54
DX: J44.1 Chronic obstructive pulmonary disease with (acute) exacerbation (principal); F17.210 Nicotine dependence, cigarettes, uncomplicated; J45.909 Unspecified asthma, uncomplicated
CPT/HCPCS: 71010; 80053; 83880; 84484; 85025; 93005; 96374; 99282; J2930

== ENCOUNTER 2017-02-13 13:06 | Inpatient (IN) | payer SELFPAY ==
[2017-02-13 13:06] VITALS: BMI 20.9
[2017-02-13] MEDS ORDERED: Albuterol-Ipratrop 3 mg / 0.5 (3 ml) UD IH STA ×3 (13:29→13:30)
[2017-02-13] MEDS ORDERED: Sodium Chloride 0.9% 1,000 ML IV STA ×2 (13:30→14:52)
--- NOTE | 2017-02-13 13:37 | ED PDOC ---
HPI: SOB/CHF/COPD Time Seen by Provider: 02/13/17 13:24 Chief Complaint (Nursing): Shortness Of Breath Chief Complaint (Provider): Cough History Per: Patient History/Exam Limitations: no limitations Onset/Duration Of Symptoms: Hrs (prior to arrival ) Current Symptoms Are (Timing): Still Present Additional Complaint(s): Zechariah Power is a 61 year old male with a past medical history of COPD presenting to the ED for an evaluation of a productive cough with white sputum associated with shortness of breath and chest pain on inspiration and coughing occurring prior to arrival. The patient denies fever. He states no improvement with home Nebulizer. PMD: TBD Past Medical History Reviewed: Historical Data, Nursing Documentation, Vital Signs Vital Signs: Last Vital Signs Temp 98 F 02/13/17 13:22 Pulse 81 02/13/17 13:22 Resp 16 02/13/17 13:22 BP 119/68 02/13/17 13:22 Pulse Ox 99 02/13/17 14:06 - Medical History PMH: Asthma, COPD, Emphysema - Surgical History Surgical History: No Surg Hx - Family History Family History: States: No Known Family Hx - Social History Current smoker - smoking cessation education provided: Yes Alcohol: None Drugs: Denies - Home Medications Home Medications: Ambulatory Orders Medication Instructions Recorded Albuterol HFA [Ventolin HFA 90 1 puff INH Q4 PRN #1 11/15/16 mcg/actuation (8 g)] Fluticasone/Salmeterol 250/50 1 puff IH Q12 30 Days puff 11/15/16 [Advair Diskus 250/50] - Allergies Allergies/Adverse Reactions: Allergies Allergy/AdvReac Type Severity Reaction Status Date / Time No Known Allergies Allergy Verified 02/13/17 13:22 Review of Systems ROS Statement: Except As Marked, All Systems Reviewed And Found Negative Constitutional: Negative for: Fever Cardiovascular: Positive for: Chest Pain Respiratory: Positive for: Cough, Shortness of Breath, Sputum (white) Physical Exam - Reviewed Nursing Documentation Reviewed: Yes Vital Signs Reviewed: Yes - Physical Exam Appears: Positive for: Non-toxic Head Exam: Positive for: ATRAUMATIC, NORMOCEPHALIC Skin: Positive for: Normal Color, Warm, Dry Eye Exam: Positive for: Normal appearance, EOMI ENT: Positive for: Normal ENT Inspection Neck: Positive for: Normal, Painless ROM Cardiovascular/Chest: Positive for: Regular Rate, Rhythm, Chest Non Tender Respiratory: Positive for: Decreased Breath Sounds (bilaterally), Rhonchi ( bilaterally), Respiratory Distress (mild) Gastrointestinal/Abdominal: Positive for: Normal Exam, Soft. Negative for: Tenderness Extremity: Negative for: Calf Tenderness, Swelling, Other (no erythema) Neurologic/Psych: Positive for: Alert, Oriented (x3). Negative for: Motor/ Sensory Deficits - Laboratory Results Result Diagrams: 02/13/17 14:22 02/13/17 14:22 - ECG O2 Sat by Pulse Oximetry: 99 (RA) Pulse Ox Interpretation: Normal Medical Decision Making Medical Decision Making: Time: 13:24 Impression: COPD exacerbation Plan: * VBG Shock Panel * ED EKG * CMP * Troponin I * CBC (with differential) * Blood Culture * Peak Flow pre/post * Duoneb 3 mg/0.5 mg (3 ml) UD 3 ml IH * NS 0.9% 1,000 ml IV 100 mls/hr * SOLU-Medrol 125 mg IVP * [RAD] Chest Two Views (PA/LAT) * Reevaluation Scribe Attestation: Documented by Re Garcia, acting as a scribe for Mo John MD. Provider Scribe Attestation: All medical record entries made by the Scribe were at my direction and personally dictated by me. I have reviewed the chart and agree that the record accurately reflects my personal performance of the history, physical exam, medical decision making, and the department course for this patient. I have also personally directed, reviewed, and agree with the discharge instructions and disposition. Disposition - Clinical Impression Clinical Impression: COPD exacerbation - Patient ED Disposition Is Patient to be Admitted: Yes - Disposition Disposition Time: 14:51 Condition: FAIR Forms: [employer] (Bahraini) - Pt Status Changed To: Hospital Disposition Of: Observation - POA Present On Arrival: None
[2017-02-13 14:25] LABS: BASO # 0.1 K/uL (0.0-0.2); BASO % 1.7 % (0.0-2.0); EOS # 0.8 K/uL (0.0-0.7); HEMATOCRIT 42.3 % (35.0-51.0); LYMPH # 0.9 K/uL (1.0-4.3); LYMPH % 10.6 % (20.0-40.0); MEAN CELL VOLUME 94.3 fl (80.0-94.0); MEAN CORPUSCULAR HEMOGLOBIN 31.4 pg (27.0-31.0); MEAN CORPUSCULAR HGB CONC 33.3 g/dL (33.0-37.0); MONO % 11.6 % (0.0-10.0); NEUT # 5.6 K/uL (1.8-7.0); NEUT % 66.1 % (50.0-75.0); WHITE BLOOD COUNT 8.5 K/uL (4.8-10.8)
[2017-02-13 14:27] LABS: VENOUS BLOOD GAS BASE EXCESS 0.7 mmol/L (0.0-2.0); VENOUS BLOOD GAS PCO2 43 mmHg (40-60); VENOUS BLOOD PH 7.39 (7.32-7.43)
[2017-02-13] MEDS ORDERED: Albuterol-Ipratrop 3 mg / 0.5 (3 ml) UD ONE ×2 (14:32→14:33)
[2017-02-13 14:37] LABS: ALB/GLOB RATIO 1.3 (1.0-2.1); ALKALINE PHOSPHATASE 66 U/L (38-126); ALT/SGPT 34 U/L (21-72); AST/SGOT 40 U/L (17-59); BILIRUBIN,TOTAL 0.5 mg/dl (0.2-1.3); BLOOD UREA NITROGEN 11 mg/dl (9-20); CALCIUM 9.6 mg/dL (8.4-10.2); CARBON DIOXIDE 25 mmol/L (22-30); CHLORIDE 98 mmol/L (98-107); GFR AFRICAN-AMERICAN > 60; GLUCOSE,RANDOM 106 mg/dL (75-110); POTASSIUM 4.2 MMOL/L (3.6-5.0); SODIUM 136 mmol/l (132-148); TOTAL PROTEIN 7.8 G/DL (6.3-8.2)
--- NOTE | 2017-02-13 14:58 | RAD ---
HISTORY: [facility] [place] COMPARISON: 01/16/2017 TECHNIQUE: Chest PA and lateral FINDINGS: LUNGS: No pulmonary infiltrate. Pulmonary hyperinflation consistent with emphysema. PLEURA: No significant pleural effusion identified. No pneumothorax apparent. CARDIOVASCULAR: Normal. OSSEOUS STRUCTURES: No significant abnormalities. VISUALIZED UPPER ABDOMEN: Normal. OTHER FINDINGS: None. IMPRESSION: No acute infiltrate. Pulmonary hyperinflation consistent with emphysema.
[2017-02-13] MEDS ORDERED: Sodium Chloride 3% for Inhalation 4 ML VIAL.NEB IH PRN (15:19)
--- NOTE | 2017-02-13 18:13 | CP.PCM.HP ---
History of Present Illness - History of Present Illness History of Present Illness: 61 YO M w/ PMH of COPD presents to the ED for SOB which was not relieved even after he used his albuterol inhaler and his nebulizer treatments. Patient has also been having cough with productive white sputum which has been worsening. Patient denies any fever, chills, nausea or vomiting. PMHx: COPD, Pneumonia PSHx: RT. 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 ETOH- 3-4 beers daily, DRUG-none Home: Lives with roommates Works part-time [employer] FH: Mother had some type of lung problem. Not sure if it was cancer or COPD [facility]: Dr. Pichardo Code Status: Patient is a full code, however he states that if his prognosis is poor. He would not suffer being intubated he would rather . Present on Admission - Present on Admission Any Indicators Present on Admission: No Review of Systems - Review of Systems All systems: reviewed and no additional remarkable complaints except Past Patient History - Infectious Disease Hx of Infectious Diseases: None - Tetanus Immunizations Tetanus Immunization: Unknown - Past Medical History & Family History Past Medical History?: Yes - Past Social History Alcohol: None Drugs: Denies - CARDIAC Hx Cardiac Disorders: No - PULMONARY Hx Asthma: Yes Hx Chronic Obstructive Pulmonary Disease (COPD): Yes Hx Emphysema: Yes - NEUROLOGICAL Hx Neurological Disorder: No - HEENT Hx HEENT Problems: No - ENDOCRINE/METABOLIC Hx Endocrine Disorders: No - HEMATOLOGICAL/ONCOLOGICAL Hx Blood Disorders: No - INTEGUMENTARY Hx Dermatological Problems: No - MUSCULOSKELETAL/RHEUMATOLOGICAL Hx Musculoskeletal Disorders: No Hx Falls: No - GASTROINTESTINAL Hx Gastrointestinal Disorders: No - GENITOURINARY/GYNECOLOGICAL Hx Genitourinary Disorders: Yes - PSYCHIATRIC Hx Psychophysiologic Disorder: No Hx Substance Use: No - SURGICAL HISTORY Hx Surgeries: Yes (neck cyst right side) Other/Comment: right neck cyst removal 5 years ago - ANESTHESIA Hx Anesthesia: Yes Hx Anesthesia Reactions: No Hx Malignant Hyperthermia: No Meds Allergies/Adverse Reactions: Allergies Allergy/AdvReac Type Severity Reaction Status Date / Time No Known Allergies Allergy Verified 02/13/17 13:22 Physical Exam - Constitutional Appears: No Acute Distress - Head Exam Head Exam: NORMAL INSPECTION - Eye Exam Eye Exam: Normal appearance - Respiratory Exam Respiratory Exam: Decreased Breath Sounds, Rhonchi, Wheezes - Cardiovascular Exam Cardiovascular Exam: REGULAR RHYTHM, +S1, +S2 - GI/Abdominal Exam GI & Abdominal Exam: Normal Bowel Sounds, Soft - Extremities Exam Extremities exam: Negative for: calf tenderness - Neurological Exam Neurological exam: Alert, CN II-XII Intact, Normal Gait, Oriented x3 Results - Vital Signs Recent Vital Signs: Last Vital Signs Temp 98 F 02/13/17 13:22 Pulse 99 H 02/13/17 17:26 Resp 18 02/13/17 17:26 BP 117/84 02/13/17 17:26 Pulse Ox 95 02/13/17 17:26 - Labs Result Diagrams: 02/13/17 14:22 02/13/17 14:22 Labs: Laboratory Results - last 24 hr 02/13/17 02/13/17 02/13/17 13:29 14:22 14:22 WBC 8.5 RBC 4.49 Hgb 14.1 Hct 42.3 MCV 94.3 H MCH 31.4 H MCHC 33.3 RDW 14.0 Plt Count 341 MPV 7.0 L Neut % (Auto) 66.1 Lymph % (Auto) 10.6 L [place] % (Auto) 11.6 H Eos % (Auto) 10.0 H Baso % (Auto) 1.7 Neut # 5.6 Lymph # 0.9 L [place] # 1.0 H Eos # 0.8 H Baso # 0.1 pO2 41 VBG pH 7.39 VBG pCO2 43 VBG HCO3 24.8 VBG Total CO2 27.3 VBG O2 Sat (Calc) 78.4 H VBG Base Excess 0.7 VBG Potassium 4.0 Sodium 136.0 136 Chloride 99.0 98 Glucose 106 Lactate 3.1 H FiO2 21.0 Potassium 4.2 Carbon Dioxide 25 Anion Gap 17 BUN 11 Creatinine 0.5 L Est GFR ( Amer) > 60 Est GFR (Non-Af Amer) > 60 Random Glucose 106 Calcium 9.6 Total Bilirubin 0.5 AST 40 ALT 34 Alkaline Phosphatase 66 Troponin I < 0.0120 Total Protein 7.8 Albumin 4.5 Globulin 3.3 Albumin/Globulin Ratio 1.3 Venous Blood Potassium 4.0 Assessment & Plan - Assessment and Plan (Free Text) Assessment: 1) COPD exacerbation - Duoneb Q4 - Levofloxacin 750 daily for exacerbation - Prednisone 40mg BID - F/U with sputum culture amd blood culture - F/U with morning CBC BMP - F/U with lactic acid 2) DVT prophylaxis SCD Encourage ambulation
[2017-02-13 18:53] LABS: VENOUS BLOOD GAS PCO2 26 mmHg (40-60); VENOUS BLOOD PH 7.48 (7.32-7.43)
[2017-02-13] MEDS ORDERED: Albuterol-Ipratrop 3 mg / 0.5 (3 ml) UD INH SCH (20:00)
[2017-02-13] MEDS: levoFLOXacin 750 mg in D5W 750 MG/150 ML BAG IVPB SCH (21:00)
[2017-02-13] MEDS: Fluticasone-Salmeterol 250-50mcg Diskus IH SCH (21:00)
[2017-02-13] MEDS: Albuterol-Ipratrop 3 mg / 0.5 (3 ml) UD INH SCH ×2 (21:55→23:05)
[2017-02-14] MEDS: Albuterol-Ipratrop 3 mg / 0.5 (3 ml) UD INH SCH ×5 (04:40→19:21)
[2017-02-14] MEDS ORDERED: Influenza Vaccine 18yr & older 0.5 ML/45 MCG SYR IM ONE (06:00)
[2017-02-14] MEDS ORDERED: Pneumococcal 23-Valent Vaccine IM ONE (06:00)
[2017-02-14 07:42] LABS: BASO % 0.2 % (0.0-2.0); EOS % 0.1 % (0.0-4.0); HEMATOCRIT 40.3 % (35.0-51.0); LYMPH # 0.7 K/uL (1.0-4.3); LYMPH % 10.9 % (20.0-40.0); MEAN CELL VOLUME 94.3 fl (80.0-94.0); MEAN CORPUSCULAR HGB CONC 32.9 g/dL (33.0-37.0); MEAN PLATELET VOLUME 7.3 fl (7.2-11.7); MONO # 0.8 K/uL (0.0-0.8); MONO % 12.8 % (0.0-10.0); NEUT # 4.8 K/uL (1.8-7.0); RED CELL DISTRIBUTION WIDTH 13.8 % (11.5-14.5); WHITE BLOOD COUNT 6.4 K/uL (4.8-10.8)
[2017-02-14 08:01] LABS: ALB/GLOB RATIO 1.2 (1.0-2.1); ALKALINE PHOSPHATASE 59 U/L (38-126); ALT/SGPT 40 U/L (21-72); AST/SGOT 36 U/L (17-59); BILIRUBIN,TOTAL 0.5 mg/dl (0.2-1.3); BLOOD UREA NITROGEN 11 mg/dl (9-20); CALCIUM 9.4 mg/dL (8.4-10.2); CARBON DIOXIDE 26 mmol/L (22-30); CHLORIDE 102 mmol/L (98-107); GFR AFRICAN-AMERICAN > 60; GLUCOSE,RANDOM 104 mg/dL (75-110); SODIUM 138 mmol/l (132-148); TOTAL PROTEIN 7.1 G/DL (6.3-8.2)
[2017-02-14] MEDS: levoFLOXacin 750 mg in D5W 750 MG/150 ML BAG IVPB SCH (08:54)
[2017-02-14] MEDS ORDERED: levoFLOXacin 750 mg in D5W 150 ML BAG IVPB SCH (09:00)
[2017-02-14] MEDS ORDERED: levoFLOXacin 750 MG TAB PO SCH (09:00)
--- NOTE | 2017-02-14 09:09 | CARD ---
APPROVED REPORT EKG Measurement Heart [id number] <Conclusion> Normal sinus rhythm Nonspecific ST abnormality Abnormal ECG
[2017-02-14] MEDS: Fluticasone-Salmeterol 250-50mcg Diskus IH SCH ×2 (09:26→21:03)
--- NOTE | 2017-02-14 10:11 | CP.PCM.PN ---
Subjective - Date & Time of Evaluation Date of Evaluation: 02/14/17 Time of Evaluation: 10:17 - Subjective Subjective: 61 YO M seen at bedside this morning. Feels better. Slept well overnight. Denies any fever, chills, nausea, vomiting. Cough has improved. - Denies any overnight events. Objective - Vital Signs/Intake and Output Vital Signs (last 24 hours): Temp Pulse Resp BP Pulse Ox 98.1 F 76 18 124/86 100 02/14/17 08:15 02/14/17 08:15 02/14/17 08:15 02/14/17 08:15 02/14/17 08:15 - Medications Medications: Current Medications Albuterol/Ipratropium (Duoneb 3 Mg/0.5 Mg (3 Ml) Ud) 3 ml INH RQ4 [facility] Last Admin: 02/14/17 07:42 Dose: 3 ml Levofloxacin/Dextrose (Levaquin 750mg) 750 mg in 150 mls @ 100 mls/hr IVPB DAILY [facility] Last Admin: 02/14/17 08:54 Dose: 100 mls/hr Prednisone (Prednisone Tab) 40 mg PO BID [facility] Last Admin: 02/14/17 08:55 Dose: 40 mg Fluticasone/Salmeterol (Advair Diskus 250/50) 1 puff IH Q12 [facility] Last Admin: 02/14/17 09:26 Dose: 1 puff - Labs Labs: 02/14/17 05:30 02/14/17 05:30 - Constitutional Appears: No Acute Distress - Head Exam Head Exam: NORMAL INSPECTION - Eye Exam Eye Exam: Normal appearance - ENT Exam ENT Exam: Mucous Membranes Moist - Respiratory Exam Respiratory Exam: Clear to Ausculation Bilateral, Wheezes (scattered whezes) - Cardiovascular Exam Cardiovascular Exam: REGULAR RHYTHM, +S1, +S2 - Neurological Exam Neurological Exam: Alert, Awake, CN II-XII Intact - Skin Skin Exam: Warm Assessment and Plan - Assessment and Plan (Free Text) Assessment: 1) COPD exacerbation - Duoneb Q4 - Levofloxacin 750 daily for exacerbation ( Day 1) - Prednislone loading dose given in ER. - Prednisone 40mg BID ( Day 1) - Repeat lactic acid normalized - F/U with sputum culture amd blood culture - F/U with morning CBC BMP 2) DVT prophylaxis SCD Encourage ambulation
[2017-02-15] MEDS: Albuterol-Ipratrop 3 mg / 0.5 (3 ml) UD INH SCH ×5 (00:17→15:48)
[2017-02-15] MEDS: Fluticasone-Salmeterol 250-50mcg Diskus IH SCH (08:54)
[2017-02-15] MEDS: levoFLOXacin 750 mg in D5W 750 MG/150 ML BAG IVPB SCH (09:03)
--- NOTE | 2017-02-15 15:47 | CP.PCM.DIS ---
Provider - Provider Date of Admission: 02/14/17 14:44 Attending physician: Cici Avendano MD Time Spent in preparation of Discharge (in minutes): 30 Diagnosis - Discharge Diagnosis (1) COPD exacerbation Status: Acute Hospital Course - Lab Results Lab Results: Micro Results 02/13/17 14:00 Blood-Venous Blood Culture - Preliminary NO GROWTH AFTER 48 HOURS 02/13/17 17:11 Sputum Gram Stain - Final 02/13/17 17:11 Sputum Sputum Culture - Final NORMAL SAPROPHYTIC DAVID Most Recent Lab Values WBC 6.4 K/uL (4.8-10.8) 02/14/17 05:30 RBC 4.27 Mil/uL (4.40-5.90) L 02/14/17 05:30 Hgb 13.2 g/dL (12.0-18.0) 02/14/17 05:30 Hct 40.3 % (35.0-51.0) 02/14/17 05:30 MCV 94.3 fl (80.0-94.0) H 02/14/17 05:30 MCH 31.0 pg (27.0-31.0) 02/14/17 05:30 MCHC 32.9 g/dL (33.0-37.0) L 02/14/17 05:30 RDW 13.8 % (11.5-14.5) 02/14/17 05:30 Plt Count 331 K/uL (130-400) 02/14/17 05:30 MPV 7.3 fl (7.2-11.7) 02/14/17 05:30 Neut % (Auto) 76.0 % (50.0-75.0) H 02/14/17 05:30 Lymph % (Auto) 10.9 % (20.0-40.0) L 02/14/17 05:30 [place] % (Auto) 12.8 % (0.0-10.0) H 02/14/17 05:30 Eos % (Auto) 0.1 % (0.0-4.0) 02/14/17 05:30 Baso % (Auto) 0.2 % (0.0-2.0) 02/14/17 05:30 Neut # 4.8 K/uL (1.8-7.0) 02/14/17 05:30 Lymph # 0.7 K/uL (1.0-4.3) L 02/14/17 05:30 [place] # 0.8 K/uL (0.0-0.8) 02/14/17 05:30 Eos # 0.0 K/uL (0.0-0.7) 02/14/17 05:30 Baso # 0.0 K/uL (0.0-0.2) 02/14/17 05:30 pO2 51 mm/Hg (30-55) 02/13/17 17:53 VBG pH 7.48 (7.32-7.43) H 02/13/17 17:53 VBG pCO2 26 mmHg (40-60) L 02/13/17 17:53 VBG HCO3 22.4 mmol/L 02/13/17 17:53 VBG Total CO2 20.2 mmol/L (22-28) L 02/13/17 17:53 VBG O2 Sat (Calc) 91.9 % (40-65) H 02/13/17 17:53 VBG Base Excess -3.0 mmol/L (0.0-2.0) L 02/13/17 17:53 VBG Potassium 2.6 mmol/L (3.6-5.2) L 02/13/17 17:53 Sodium 138.0 mmol/L (132-148) 02/13/17 17:53 Chloride 110.0 mmol/L (98-107) H 02/13/17 17:53 Glucose 101 mg/dL (75-110) 02/13/17 17:53 Lactate 0.9 mmol/L (0.7-2.1) 02/13/17 17:53 FiO2 21.0 % 02/13/17 17:53 Sodium 138 mmol/l (132-148) 02/14/17 05:30 Potassium 4.0 MMOL/L (3.6-5.0) 02/14/17 05:30 Chloride 102 mmol/L (98-107) 02/14/17 05:30 Carbon Dioxide 26 mmol/L (22-30) 02/14/17 05:30 Anion Gap 14 (10-20) 02/14/17 05:30 BUN 11 mg/dl (9-20) 02/14/17 05:30 Creatinine 0.5 mg/dl (0.8-1.5) L 02/14/17 05:30 Est GFR ( Amer) > 60 02/14/17 05:30 Est GFR (Non-Af Amer) > 60 02/14/17 05:30 Random Glucose 104 mg/dL (75-110) 02/14/17 05:30 Lactic Acid 0.8 MMOL/L (0.7-2.1) 02/14/17 05:30 Calcium 9.4 mg/dL (8.4-10.2) 02/14/17 05:30 Total Bilirubin 0.5 mg/dl (0.2-1.3) 02/14/17 05:30 AST 36 U/L (17-59) 02/14/17 05:30 ALT 40 U/L (21-72) 02/14/17 05:30 Alkaline Phosphatase 59 U/L (38-126) 02/14/17 05:30 Troponin I < 0.0120 ng/mL (0.00-0.120) 02/13/17 14:22 Total Protein 7.1 G/DL (6.3-8.2) 02/14/17 05:30 Albumin 3.9 g/dL (3.5-5.0) 02/14/17 05:30 Globulin 3.2 gm/dL (2.2-3.9) 02/14/17 05:30 Albumin/Globulin Ratio 1.2 (1.0-2.1) 02/14/17 05:30 Venous Blood Potassium 2.6 mmol/L (3.6-5.2) L 02/13/17 17:53 - Hospital Course Hospital Course: 60 yo M with PMHx of COPD was admitted for COPD exacerbation. Treated with solu- medrol, duonebs, and levofloxacin. Denies any dyspnea or SOB at time of discharge. No longer requiring O2 supplementation. Will follow up with PMD 02/19. Complete 5 day course of Levofloxacin and Prednisone. Advair 250-50 refilled. Discharge Exam - Head Exam Head Exam: NORMAL INSPECTION - Eye Exam Eye Exam: Normal appearance - ENT Exam ENT Exam: Mucous Membranes Moist - Neck Exam Neck exam: Normal Inspection - Respiratory Exam Respiratory Exam: Clear to PA & Lateral, NORMAL BREATHING PATTERN, UNREMARKABLE. absent: Decreased Breath Sounds, Rales, Rhonchi, Wheezes, Respiratory Distress - Cardiovascular Exam Cardiovascular Exam: REGULAR RHYTHM, RRR, +S1, +S2 - GI/Abdominal Exam GI & Abdominal Exam: Normal Bowel Sounds, Soft, Unremarkable. absent: Tenderness - Extremities Exam Extremities exam: normal inspection - Neurological Exam Neurological exam: Normal Gait, Oriented x3 - Psychiatric Exam Psychiatric exam: Normal Affect, Normal Mood - Skin Skin Exam: Dry, Intact, Normal Color, Warm Discharge Plan - Discharge Medications Prescriptions: Fluticasone/Salmeterol 250/50 [Advair Diskus 250/50] 1 puff IH Q12 #1 inhaler levoFLOXacin [Levaquin] 750 mg PO DAILY #3 tab predniSONE [predniSONE Tab] 20 mg PO DAILY 3 Days #6 tab - Follow Up Plan Condition: STABLE Disposition: HOME/ ROUTINE Additional Instructions: Follow up with PMD 02/19. Take medications as prescribed.
[2017-02-15 15:48] VITALS: BP 105/73; PULSE 85; RESP 18; TEMP 97.9; O2SAT 94
== END 2017-02-15 16:00 | disposition home or self-care (01) | DRG 88 ==
LOC: H.ER 13:06 → H.ERHOLD 14:52 → H.TEL 18:41 → OBSVTOIN 02-14 14:44
PROVIDERS: ADMIT Family Medicine Geriatric Medicine; ATTEND Family Medicine Geriatric Medicine
PROC: 3E0234Z Introduction of Serum, Toxoid and Vaccine into Muscle, Percutaneous Approach (ICD-10-PCS; principal; 2017-02-14)
DX: J44.1 Chronic obstructive pulmonary disease with (acute) exacerbation (principal); F17.200 Nicotine dependence, unspecified, uncomplicated; J45.909 Unspecified asthma, uncomplicated; Z23 Encounter for immunization

== ENCOUNTER 2017-03-10 01:55 | Emergency (ER) | payer SELFPAY ==
[2017-03-10 01:55] VITALS: BMI 20.9
[2017-03-10 02:04] VITALS: TEMP 97.9
[2017-03-10] MEDS ORDERED: Albuterol-Ipratrop 3 mg / 0.5 (3 ml) UD ONE (02:09)
[2017-03-10] MEDS ORDERED: Albuterol-Ipratrop 3 mg / 0.5 (3 ml) UD INH STA ×3 (02:18→04:25)
[2017-03-10 02:36] LABS: BASO # 0.1 K/uL (0.0-0.2); BASO % 1.6 % (0.0-2.0); EOS # 1.3 K/uL (0.0-0.7); EOS % 13.3 % (0.0-4.0); HEMOGLOBIN 14.8 g/dL (12.0-18.0); LYMPH # 2.4 K/uL (1.0-4.3); MEAN CORPUSCULAR HEMOGLOBIN 31.6 pg (27.0-31.0); MEAN CORPUSCULAR HGB CONC 33.3 g/dL (33.0-37.0); MONO # 1.4 K/uL (0.0-0.8); NEUT # 4.3 K/uL (1.8-7.0); NEUT % 45.1 % (50.0-75.0); NRBC % 0.1 % (0.0-0.0); RBC 4.67 Mil/uL (4.40-5.90); RED CELL DISTRIBUTION WIDTH 13.4 % (11.5-14.5); WHITE BLOOD COUNT 9.5 K/uL (4.8-10.8)
--- NOTE | 2017-03-10 03:05 | ED PDOC ---
HPI: SOB/CHF/COPD Time Seen by Provider: 03/10/17 02:02 Chief Complaint (Nursing): Respiratory Distress Chief Complaint (Provider): Shortness of Breath History Per: Patient History/Exam Limitations: no limitations Onset/Duration Of Symptoms: Days (x1) Current Symptoms Are (Timing): Still Present Additional Complaint(s): Zechariah Power Jr is a 61 year old male with a past medical history of COPD, who presents to the ED complaining of shortness of breath x1 day. Patient states he ran out of his Albuterol. PMD: None Past Medical History Reviewed: Historical Data, Nursing Documentation, Vital Signs Vital Signs: Last Vital Signs Temp 97.9 F 03/10/17 01:58 Pulse 88 03/10/17 05:07 Resp 18 03/10/17 05:07 BP 112/77 03/10/17 05:07 Pulse Ox 98 03/10/17 05:49 - Medical History PMH: Asthma, COPD, Emphysema, Pneumonia - Surgical History Surgical History: No Surg Hx - Family History Family History: States: Unknown Family Hx - Social History Current smoker - smoking cessation education provided: Yes Alcohol: None Drugs: Denies - Home Medications Home Medications: Ambulatory Orders Medication Instructions Recorded Albuterol HFA [Ventolin HFA 90 1 puff INH Q4 PRN #1 11/15/16 mcg/actuation (8 g)] Fluticasone/Salmeterol 250/50 1 puff IH Q12 #1 inhaler 02/15/17 [Advair Diskus 250/50] levoFLOXacin [Levaquin] 750 mg PO DAILY #3 tab 02/15/17 predniSONE [predniSONE Tab] 20 mg PO DAILY 3 Days #6 tab 02/15/17 Albuterol HFA [Ventolin HFA 90 1 - 2 puff IH Q4H PRN #1 bottle 03/10/17 mcg/actuation (8 g)] predniSONE [Prednisone] 40 mg PO DAILY #8 tab 03/10/17 - Allergies Allergies/Adverse Reactions: Allergies Allergy/AdvReac Type Severity Reaction Status Date / Time No Known Allergies Allergy Verified 03/10/17 01:58 Review of Systems ROS Statement: Except As Marked, All Systems Reviewed And Found Negative Respiratory: Positive for: Shortness of Breath Physical Exam - Reviewed Nursing Documentation Reviewed: Yes Vital Signs Reviewed: Yes - Physical Exam Appears: Positive for: Well, Non-toxic, No Acute Distress Head Exam: Positive for: ATRAUMATIC, NORMAL INSPECTION, NORMOCEPHALIC Skin: Positive for: Normal Color, Warm, Dry. Negative for: Rash Eye Exam: Positive for: EOMI, Normal appearance, PERRL Neck: Positive for: Normal, Painless ROM, Supple Cardiovascular/Chest: Positive for: Regular Rate, Rhythm. Negative for: Murmur Respiratory: Positive for: Wheezing, Other (tachypnea) Gastrointestinal/Abdominal: Positive for: Normal Exam, Bowel Sounds, Soft. Negative for: Tenderness Back: Positive for: Normal Inspection. Negative for: L CVA Tenderness, R CVA Tenderness, Vertebral Tenderness Extremity: Positive for: Normal ROM. Negative for: Pedal Edema, Deformity Neurologic/Psych: Positive for: Alert, Oriented (x3). Negative for: Motor/ Sensory Deficits - Laboratory Results Result Diagrams: 03/10/17 02:31 03/10/17 02:48 - ECG O2 Sat by Pulse Oximetry: 98 (RA) Pulse Ox Interpretation: Normal Medical Decision Making Medical Decision Making: Time: 02:18 Plan: --CMP --Troponin I --CBC w/ differential --Chest X-Ray 2 views --Duoneb 3 ml INH --Prednisone 125 mg IVP --Nebulizer treatment --Influenza A B --Reevaluation Time: 04:20 --X-Ray is negative and shows no pneumonia or other acute abnormalities. --Duoneb 3 ml INH --Reevaluation Time: 04:25 --Upon provider reevaluation patient is feeling better, is medically stable, and requires no further treatment in the ED at this time. Patient will be discharged with Rx for Prednisone and Ventolin.Counseling was provided and all questions were answered regarding diagnosis and need for follow up with PMD. There is agreement to discharge plan. Return if symptoms persist or worsen. Scribe Attestation: Documented by Odin Perkins acting as a scribe for Mar Gaston MD. Scribe Attestation: All medical record entries made by the Scribe were at my direction and personally dictated by me. I have reviewed the chart and agree that the record accurately reflects my personal performance of the history, physical exam, medical decision making, and the department course for this patient. I have also personally directed, reviewed, and agree with the discharge instructions and disposition. Disposition - Clinical Impression Clinical Impression: Respiratory distress, COPD exacerbation - Patient ED Disposition Is Patient to be Admitted: No Counseled Patient/Family Regarding: Studies Performed, Diagnosis, Need For Followup, Rx Given - Disposition Referrals: Chava Renee MD [Primary Care Provider] - Disposition: Routine/Home Disposition Time: 04:00 Condition: IMPROVED Additional Instructions: follow up in the clinic in 1-2 days return to ED with any worsening or concerning symptoms Prescriptions: Albuterol HFA [Ventolin HFA 90 mcg/actuation (8 g)] 1 - 2 puff IH Q4H PRN #1 bottle PRN Reason: Wheezing predniSONE [Prednisone] 40 mg PO DAILY #8 tab Instructions: COPD (Chronic Obstructive Pulmonary Disease) (ED) Forms: [employer] (Welsh)
[2017-03-10 03:30] LABS: ALB/GLOB RATIO 1.3 (1.0-2.1); ALBUMIN 4.3 g/dL (3.5-5.0); ALT/SGPT 24 U/L (21-72); AST/SGOT 36 U/L (17-59); BLOOD UREA NITROGEN 13 mg/dl (9-20); CALCIUM 9.7 mg/dL (8.4-10.2); GFR AFRICAN-AMERICAN > 60; GFR NON-AFRICAN AMERICAN > 60
[2017-03-10 05:08] VITALS: BP 112/77; PULSE 88; RESP 18
[2017-03-10 05:49] VITALS: O2SAT 98
--- NOTE | 2017-03-10 10:10 | RAD ---
HISTORY: sob COMPARISON: 02/13/2017 TECHNIQUE: Chest PA and lateral FINDINGS: LUNGS: No active pulmonary disease. PLEURA: No significant pleural effusion identified. No pneumothorax apparent. CARDIOVASCULAR: Normal. OSSEOUS STRUCTURES: No significant abnormalities. VISUALIZED UPPER ABDOMEN: Normal. OTHER FINDINGS: None. IMPRESSION: No active disease.
== END 2017-03-10 05:14 | disposition home or self-care (01) ==
LOC: H.ER 01:55
DX: R06.03 Acute respiratory distress (principal); F17.200 Nicotine dependence, unspecified, uncomplicated
CPT/HCPCS: 71046; 80053; 84484; 85025; 87804; 96374; 99283; J2930

== ENCOUNTER 2017-03-19 09:32 | Inpatient (IN) | payer SELFPAY ==
[2017-03-19 09:33] VITALS: BMI 20.9
[2017-03-19] MEDS ORDERED: Albuterol-Ipratrop 3 mg / 0.5 (3 ml) UD ONE ×3 (09:42→20:42)
[2017-03-19] MEDS: Albuterol-Ipratrop 3 mg / 0.5 (3 ml) UD INH STA ×2 (10:37→17:16)
[2017-03-19 10:47] LABS: BASO # 0.1 K/uL (0.0-0.2); EOS # 1.2 K/uL (0.0-0.7); EOS % 8.7 % (0.0-4.0); HEMOGLOBIN 13.6 g/dL (12.0-18.0); LYMPH % 14.7 % (20.0-40.0); MEAN CELL VOLUME 95.2 fl (80.0-94.0); MEAN CORPUSCULAR HEMOGLOBIN 31.7 pg (27.0-31.0); MEAN CORPUSCULAR HGB CONC 33.2 g/dL (33.0-37.0); MEAN PLATELET VOLUME 7.2 fl (7.2-11.7); MONO # 1.6 K/uL (0.0-0.8); MONO % 11.7 % (0.0-10.0); NEUT # 8.5 K/uL (1.8-7.0); NEUT % 63.9 % (50.0-75.0); NRBC % 0.1 % (0.0-0.0); RBC 4.31 Mil/uL (4.40-5.90); RED CELL DISTRIBUTION WIDTH 13.7 % (11.5-14.5); WHITE BLOOD COUNT 13.4 K/uL (4.8-10.8)
[2017-03-19 11:00] LABS: ALB/GLOB RATIO 1.4 (1.0-2.1); ALBUMIN 4.4 g/dL (3.5-5.0); ALT/SGPT 27 U/L (21-72); AST/SGOT 23 U/L (17-59); BLOOD UREA NITROGEN 11 mg/dl (9-20); GFR AFRICAN-AMERICAN > 60; GFR NON-AFRICAN AMERICAN > 60
--- NOTE | 2017-03-19 11:23 | ED PDOC ---
HPI: SOB/CHF/COPD Time Seen by Provider: 03/19/17 09:35 Chief Complaint (Nursing): Shortness Of Breath Chief Complaint (Provider): Shortness Of Breath History Per: Patient History/Exam Limitations: no limitations Onset/Duration Of Symptoms: Hrs (x1) Current Symptoms Are (Timing): Still Present Additional Complaint(s): 61 y/o with a past medical history of COPD, presents to the emergency department complaining of acute shortness of breath for 1 hour. Patient also has a mild cough. No fever or chills, nausea, or vomiting. PMD: Provider TBD Past Medical History Reviewed: Historical Data, Nursing Documentation, Vital Signs Vital Signs: Last Vital Signs Temp 98.0 F 03/23/17 15:40 Pulse 84 03/23/17 15:40 Resp 20 03/23/17 15:40 BP 109/77 03/23/17 15:40 Pulse Ox 95 03/23/17 15:40 - Medical History PMH: Asthma, COPD, Emphysema, Pneumonia - Surgical History Other surgeries: Neck surgery for cyst - Family History Family History: States: Unknown Family Hx - Social History Current smoker - smoking cessation education provided: Yes Alcohol: < 2 Drinks/Day - Home Medications Home Medications: Ambulatory Orders Medication Instructions Recorded Albuterol HFA [Ventolin HFA 90 1 - 2 puff IH Q4H PRN #1 bottle 03/10/17 mcg/actuation (8 g)] Albuterol 0.083% [Albuterol 0.083% 2.5 mg INH PRN PRN 03/19/17 Inhal Fernanda (2.5 mg/3 ml) UD] Fluticasone/Salmeterol 500/50 1 puff IH Q12 #1 puff 03/23/17 [Advair Diskus 500/50] predniSONE [Prednisone] 10 mg PO DAILY 9 Days #25 tab 03/23/17 - Allergies Allergies/Adverse Reactions: Allergies Allergy/AdvReac Type Severity Reaction Status Date / Time No Known Allergies Allergy Verified 03/19/17 19:11 Review of Systems ROS Statement: Except As Marked, All Systems Reviewed And Found Negative Constitutional: Negative for: Fever, Chills Cardiovascular: Negative for: Chest Pain Respiratory: Positive for: Cough, Shortness of Breath Gastrointestinal: Negative for: Nausea, Vomiting Physical Exam - Reviewed Nursing Documentation Reviewed: Yes Vital Signs Reviewed: Yes - Physical Exam Appears: Positive for: Non-toxic (but appears cachectic) Head Exam: Positive for: ATRAUMATIC, NORMAL INSPECTION, NORMOCEPHALIC Skin: Positive for: Normal Color, Warm, Dry Eye Exam: Positive for: EOMI, Normal appearance, PERRL ENT: Positive for: Normal ENT Inspection, Pharynx Is (clear) Neck: Positive for: Normal, Supple Cardiovascular/Chest: Positive for: Tachycardia (with regular rhythm). Negative for: Murmur Respiratory: Positive for: Wheezing (diffuse wheezing bilaterally), Other ( Tachypnic, +labored breathing noted) Gastrointestinal/Abdominal: Positive for: Normal Exam, Bowel Sounds, Soft. Negative for: Tenderness Back: Positive for: Normal Inspection. Negative for: L CVA Tenderness, R CVA Tenderness, Vertebral Tenderness Extremity: Positive for: Normal ROM. Negative for: Pedal Edema, Deformity Neurologic/Psych: Positive for: Alert, Oriented - Laboratory Results Result Diagrams: 03/23/17 04:20 03/23/17 04:20 - ECG O2 Sat by Pulse Oximetry: 97 (RA) Pulse Ox Interpretation: Normal Medical Decision Making Medical Decision Making: Time: 10:25 Initial Plan: shortness of breath rule out asthma exacerbation, rule out pneumonia --CMP --CBC --Duoneb 3 ml INH --Solu Medrol 125 mg IVP --Peak Flow pre/post treatment --Pending reevaluation Labs reviewed, and WBC is slightly elevated. Time: 13:34 --Chest x-ray --Influenza A B Results reviewed: Flu negative. Time: 14:11 CHEST X-RAY FINDINGS: LUNGS: No active pulmonary disease. PLEURA: No significant pleural effusion identified. No pneumothorax apparent. CARDIOVASCULAR: Normal. OSSEOUS STRUCTURES: Unchanged. VISUALIZED UPPER ABDOMEN: Normal. OTHER FINDINGS: None. IMPRESSION: No active disease. Time: 16:10 --Duoneb 3 ml INH --Peak Flow pre/post treatment Patient continuing to feel short of breath on reevaluation. Time: 16:28 Will admit patient to inpatient telemetry for COPD exacerbation. [facility] resident aware of admission.. Scribe Attestation: Documented by Dunia De La Paz, acting as a scribe for Mar Gaston MD Provider Scribe Attestation: All medical record entries made by the Scribe were at my direction and personally dictated by me. I have reviewed the chart and agree that the record accurately reflects my personal performance of the history, physical exam, medical decision making, and the department course for this patient. I have also personally directed, reviewed, and agree with the discharge instructions and disposition. Disposition - Clinical Impression Clinical Impression: COPD exacerbation - Patient ED Disposition Is Patient to be Admitted: Yes Counseled Patient/Family Regarding: Studies Performed - Disposition Disposition: Transfer of Care (admitted) Disposition Time: 11:40 Condition: IMPROVED - Pt Status Changed To: Hospital Disposition Of: Inpatient - Admit Certification Admit to Inpatient:: After my assessment, the patient will require hospitalization for at least two midnights. This is because of the severity of symptoms shown, intensity of services needed, and/or the medical risk in this patient being treated as an outpatient.
--- NOTE | 2017-03-19 14:13 | RAD ---
HISTORY: sob COMPARISON: Chest radiograph dated 03/10/2017. TECHNIQUE: Chest PA and lateral FINDINGS: LUNGS: No active pulmonary disease. PLEURA: No significant pleural effusion identified. No pneumothorax apparent. CARDIOVASCULAR: Normal. OSSEOUS STRUCTURES: Unchanged. VISUALIZED UPPER ABDOMEN: Normal. OTHER FINDINGS: None. IMPRESSION: No active disease.
[2017-03-19] MEDS ORDERED: Albuterol-Ipratrop 3 mg / 0.5 (3 ml) UD INH STA (16:10)
--- NOTE | 2017-03-19 17:14 | CP.PCM.HP ---
History of Present Illness - History of Present Illness History of Present Illness: 61 yo ,m, PMHx/o COPD presents to ED c/o SOB started this morning after he woke up. patient reports he used his normal inhaler Ventolin 2 times and the machine and got alleviated x 2 hour but after that he got SOB again and decided to come to ED. He reports dry throat, occs not persistent dry cough and sweating this morning but not fever. He denies chest pain, palpitation, n/v/abd pain, diarrhea , headache, dizziness, sick contact. Reports he has not been smoking since new year. Reports he saw his doctor after recent hospitalization for COPD. PMHx: COPD Allergies: NKDA Meds: Albuterol inha. Does not remember other medications PSHx: RT. neck cystectomy Social: ToB-1/2 to1 PPD, howerver reports that has not been smoking almost since new year. ETOH-3-4 beers daily, DRUG-none Home: Lives with roommates Not working now. waiting for disability FH: Mother had some type of lung problem. Not sure if it was cancer or COPD NHC: Dr. Pichardo. last seen 02/19/17 after DC for COPD exacerbation Code Status: Patient is a full code. ED Course: Vs: stable Labs: CBC leukocytosis 13.4 MEds: Duoneb x 3 Ed, Methylprednisone 125 mg daily Imaging: CXR: no active disease Present on Admission - Present on Admission Any Indicators Present on Admission: No History of DVT/PE: No History of Uncontrolled Diabetes: No Urinary Catheter: No Review of Systems - Cardiovascular Cardiovascular: As Per HPI. absent: Chest Pain - Respiratory Respiratory: Dyspnea Past Patient History - Infectious Disease Hx of Infectious Diseases: None - Tetanus Immunizations Tetanus Immunization: Unknown - Past Medical History & Family History Past Medical History?: Yes - Past Social History Alcohol: < 2 Drinks/Day - CARDIAC Hx Cardiac Disorders: No - PULMONARY Hx Asthma: Yes Hx Chronic Obstructive Pulmonary Disease (COPD): Yes Hx Emphysema: Yes Hx Pneumonia: Yes - NEUROLOGICAL Hx Neurological Disorder: No - HEENT Hx HEENT Problems: No - ENDOCRINE/METABOLIC Hx Endocrine Disorders: No - INTEGUMENTARY Hx Dermatological Problems: No - MUSCULOSKELETAL/RHEUMATOLOGICAL Hx Falls: No - GASTROINTESTINAL Hx Gastrointestinal Disorders: No - PSYCHIATRIC Hx Psychophysiologic Disorder: No Hx Substance Use: Yes (marijuana,cocaine) - SURGICAL HISTORY Hx Surgeries: Yes (neck cyst right side) Other/Comment: right neck cyst removal 5 years ago - ANESTHESIA Hx Anesthesia: Yes Hx Anesthesia Reactions: No Hx Malignant Hyperthermia: No Meds Allergies/Adverse Reactions: Allergies Allergy/AdvReac Type Severity Reaction Status Date / Time No Known Allergies Allergy Verified 03/10/17 01:58 Physical Exam - Constitutional Appears: In Acute Distress (due to shortness of breath) - Head Exam Head Exam: ATRAUMATIC, NORMOCEPHALIC - Eye Exam Eye Exam: Normal appearance - ENT Exam ENT Exam: Mucous Membranes Moist - Neck Exam Neck exam: Positive for: Normal Inspection - Respiratory Exam Respiratory Exam: Decreased Breath Sounds, Wheezes. absent: Rales Additional comments: intercostal retraction, using accessory muscle, diminished breath sound globally, expiratory wheezing at the end of expiration - Cardiovascular Exam Cardiovascular Exam: REGULAR RHYTHM, +S1, +S2 - GI/Abdominal Exam GI & Abdominal Exam: Normal Bowel Sounds, Soft. absent: Tenderness - Extremities Exam Extremities exam: Positive for: normal inspection. Negative for: pedal edema, tenderness - Neurological Exam Neurological exam: Alert, Oriented x3 - Psychiatric Exam Psychiatric exam: Normal Affect, Normal Mood - Skin Skin Exam: Intact Results - Vital Signs Recent Vital Signs: Last Vital Signs Temp 97.3 F L 03/19/17 09:53 Pulse 107 H 03/19/17 09:53 Resp 24 03/19/17 09:53 BP 166/110 H 03/19/17 09:53 Pulse Ox 97 03/19/17 16:31 - Labs Result Diagrams: 03/19/17 10:41 03/19/17 10:41 Labs: Laboratory Results - last 24 hr 03/19/17 03/19/17 03/19/17 10:41 10:41 14:38 WBC 13.4 H RBC 4.31 L Hgb 13.6 Hct 41.0 MCV 95.2 H MCH 31.7 H MCHC 33.2 RDW 13.7 Plt Count 434 H MPV 7.2 Neut % (Auto) 63.9 Lymph % (Auto) 14.7 L [place] % (Auto) 11.7 H Eos % (Auto) 8.7 H Baso % (Auto) 1.0 Neut # 8.5 H Lymph # 2.0 [place] # 1.6 H Eos # 1.2 H Baso # 0.1 Sodium 138 Potassium 3.8 Chloride 102 Carbon Dioxide 23 Anion Gap 17 BUN 11 Creatinine 0.5 L Est GFR ( Amer) > 60 Est GFR (Non-Af Amer) > 60 Random Glucose 135 H Calcium 9.0 Total Bilirubin 0.4 AST 23 ALT 27 Alkaline Phosphatase 54 Total Protein 7.7 Albumin 4.4 Globulin 3.3 Albumin/Globulin Ratio 1.4 Influenza Typ A,B (EIA) Negative for flu a/b Assessment & Plan - Assessment and Plan (Free Text) Plan: Assessment/PLan 61 yo ,m, PMHx/o COPD presents to ED c/o SOB. Patient admitted for COPD exacerbation 1) COPD exacerbation -admit telemetry -O2 NC, nonrebreather mask -Duoneb q 4h -s/p methylprednisolone 125 mg IV -c/w methylpredisolone 60 mg IV BID -f/u cbc, CXR 2) DVT prophylaxis -lovenox 40 mg sc
[2017-03-19] MEDS: Azithromycin 500 MG in Sodium Chloride 0.9% 250 ML IVPB SCH (18:20)
[2017-03-19] MEDS: Albuterol-Ipratrop 3 mg / 0.5 (3 ml) UD INH SCH (20:44)
[2017-03-19] MEDS ORDERED: methylPREDNISolone 60 MG in Sodium Chloride 0.9% 50 ML IVPB SCH (21:00)
[2017-03-19] MEDS: Fluticasone-Salmeterol 500-50mcg Diskus IH SCH (22:23)
[2017-03-20] MEDS: Albuterol-Ipratrop 3 mg / 0.5 (3 ml) UD INH SCH ×6 (00:01→19:16)
--- NOTE | 2017-03-20 07:49 | CP.PCM.PN ---
Subjective - Date & Time of Evaluation Date of Evaluation: 03/20/17 Time of Evaluation: 07:49 - Subjective Subjective: No acute overnight events. Pt feels better this morning, he says that his breathing has improved from admission. Pt is mildly breathless speaking. Denies chest pain, palpitations, n/v/d/c and remains afebrile. Objective - Vital Signs/Intake and Output Vital Signs (last 24 hours): Temp Pulse Resp BP Pulse Ox 97.3 F L 74 18 106/73 95 03/20/17 05:48 03/20/17 05:48 03/20/17 05:48 03/20/17 05:48 03/20/17 05:48 - Medications Medications: Current Medications Albuterol/Ipratropium (Duoneb 3 Mg/0.5 Mg (3 Ml) Ud) 3 ml INH RQ4 [facility] Last Admin: 03/20/17 04:58 Dose: 3 ml Enoxaparin Sodium (Lovenox) 40 mg SC DAILY [facility] PRN Reason: Protocol Azithromycin 500 mg/ Sodium (Chloride) 250 mls @ 250 mls/hr IVPB Q24H [facility] PRN Reason: Protocol Last Admin: 03/19/17 18:20 Dose: 250 mls/hr Methylprednisolone (Solu-Medrol) 60 mg IV Q12 [facility] Last Admin: 03/19/17 22:24 Dose: 60 mg Fluticasone/Salmeterol (Advair Diskus 500/50) 1 puff IH Q12 [facility] Last Admin: 03/19/17 22:23 Dose: 1 puff - Labs Labs: 03/19/17 10:41 03/19/17 10:41 - Constitutional Appears: No Acute Distress, Cachectic (stable weight), Other (on NC, mild breathlessness ) - Head Exam Head Exam: ATRAUMATIC, NORMAL INSPECTION - Eye Exam Eye Exam: EOMI, Normal appearance - ENT Exam ENT Exam: Mucous Membranes Moist, Normal Exam - Neck Exam Neck Exam: Full ROM - Respiratory Exam Respiratory Exam: Wheezes (mild wheezing in lower lobes ), NORMAL BREATHING PATTERN - Cardiovascular Exam Cardiovascular Exam: REGULAR RHYTHM, +S1, +S2 - GI/Abdominal Exam GI & Abdominal Exam: Soft, Normal Bowel Sounds. absent: Tenderness - Extremities Exam Extremities Exam: Full ROM, Normal Inspection - Back Exam Back Exam: NORMAL INSPECTION - Neurological Exam Neurological Exam: Alert, Awake, Oriented x3 - Psychiatric Exam Psychiatric exam: Normal Affect, Normal Mood - Skin Skin Exam: Dry, Normal Color, Warm Assessment and Plan - Assessment and Plan (Free Text) Assessment: Assessment/Plan: 61 YO male with PMH of COPD is admitted to [facility] for COPD exacerbation. 1) COPD exacerbation -improving -CXR; no acute pulmonary disease -s/p methylprednisolone 125 mg IV -s/p Duoneb x 3 in ED -continue advir BID -Duoneb q4h -decrease methylpredisolone 40 mg IV BID -O2 NC PRN -walk test, determine home O2 requirements -follow ABG 2) Leukocytosis, thrombocytosis -wbc 13.4, PLT 434, pt remains afebrile -neg chest X-ray -likely 2/2 to steroid use -will continue to monitor 3) Smoking -1.5packs a day x 50 yrs -currently smokes 4/day -nicotine patch 4) DVT prophylaxis -lovenox 40 mg sc
--- NOTE | 2017-03-20 08:40 | CARD ---
APPROVED REPORT EKG Measurement Heart [id number] <Conclusion> Sinus tachycardia with frequent premature atrial contractions and one premature ventricular complex Junctional ST depression, probably normal Borderline ECG
[2017-03-20] MEDS: Fluticasone-Salmeterol 500-50mcg Diskus IH SCH ×2 (08:45→21:30)
[2017-03-20] MEDS: Enoxaparin 40 mg Syringe SC SCH (08:46)
--- NOTE | 2017-03-20 12:21 | RAD ---
PROCEDURE: CHEST RADIOGRAPH, 1 VIEW HISTORY: COPD COMPARISON: None available. FINDINGS: LUNGS: No interval airspace disease identified bilaterally. Inspiratory volume appears slightly diminished however. PLEURA: No pneumothorax or pleural fluid seen. CARDIOVASCULAR: Normal. OSSEOUS STRUCTURES: No significant abnormalities. VISUALIZED UPPER ABDOMEN: Normal. OTHER FINDINGS: None. IMPRESSION: Diminished history volume however no acute infiltrate, pleural effusion or pneumothorax is identified in the interval.
[2017-03-20] MEDS: Azithromycin 500 MG in Sodium Chloride 0.9% 250 ML IVPB SCH (16:30)
--- NOTE | 2017-03-20 18:01 | CARD ---
APPROVED REPORT EKG Measurement Heart [id number] [id number] [id number] <Conclusion> Normal sinus rhythm Normal ECG
[2017-03-20] MEDS: MethylPREDNISolone 40 mg Vial IV SCH (22:13)
[2017-03-21] MEDS: Albuterol-Ipratrop 3 mg / 0.5 (3 ml) UD INH SCH ×6 (00:14→19:05)
[2017-03-21 08:08] LABS: BASO % 0.2 % (0.0-2.0); HEMOGLOBIN 12.8 g/dL (12.0-18.0); LYMPH # 0.6 K/uL (1.0-4.3); LYMPH % 6.6 % (20.0-40.0); MEAN CELL VOLUME 93.8 fl (80.0-94.0); MEAN CORPUSCULAR HEMOGLOBIN 31.5 pg (27.0-31.0); MEAN CORPUSCULAR HGB CONC 33.5 g/dL (33.0-37.0); MEAN PLATELET VOLUME 7.5 fl (7.2-11.7); MONO # 0.9 K/uL (0.0-0.8); MONO % 9.5 % (0.0-10.0); NEUT # 8.2 K/uL (1.8-7.0); NEUT % 83.7 % (50.0-75.0); PLATELET COUNT 365 K/uL (130-400); RBC 4.07 Mil/uL (4.40-5.90); RED CELL DISTRIBUTION WIDTH 13.7 % (11.5-14.5); WHITE BLOOD COUNT 9.8 K/uL (4.8-10.8)
[2017-03-21] MEDS: Enoxaparin 40 mg Syringe SC SCH (09:05)
[2017-03-21] MEDS: Fluticasone-Salmeterol 500-50mcg Diskus IH SCH ×2 (09:05→20:38)
--- NOTE | 2017-03-21 10:42 | CP.PCM.PN ---
Subjective - Date & Time of Evaluation Date of Evaluation: 03/21/17 Time of Evaluation: 08:15 - Subjective Subjective: Patient seen and examined bedside, awake, breathing room air w/o SOB. Reports feeling better with medications. Patient denies chest pain, n,v,abd pain. Eating , stooling and urinating normal. Walking test failed. will need O2 for home. pending to approval. Denies O2 use at home before, reports SOB on exertion at home and evoids to walk long distances. Objective - Vital Signs/Intake and Output Vital Signs (last 24 hours): Temp Pulse Resp BP Pulse Ox 98.1 F 83 20 100/65 92 L 03/21/17 09:00 03/21/17 09:00 03/21/17 09:00 03/21/17 09:00 03/21/17 09:00 - Medications Medications: Current Medications Albuterol/Ipratropium (Duoneb 3 Mg/0.5 Mg (3 Ml) Ud) 3 ml INH RQ4 [facility] Last Admin: 03/21/17 07:12 Dose: 3 ml Enoxaparin Sodium (Lovenox) 40 mg SC DAILY [facility] PRN Reason: Protocol Last Admin: 03/21/17 09:05 Dose: 40 mg Azithromycin 500 mg/ Sodium (Chloride) 250 mls @ 250 mls/hr IVPB Q24H [facility] PRN Reason: Protocol Last Admin: 03/20/17 16:30 Dose: 250 mls/hr Methylprednisolone (Solu-Medrol) 40 mg IV Q12 [facility] Last Admin: 03/20/17 22:13 Dose: 40 mg Nicotine (Nicoderm Cq) 1 patch TD DAILY [facility] Last Admin: 03/21/17 09:06 Dose: 1 patch Fluticasone/Salmeterol (Advair Diskus 500/50) 1 puff IH Q12 [facility] Last Admin: 03/21/17 09:05 Dose: 1 puff - Labs Labs: 03/21/17 07:14 03/19/17 10:41 - Constitutional Appears: Non-toxic, No Acute Distress - Head Exam Head Exam: ATRAUMATIC, NORMOCEPHALIC - Eye Exam Eye Exam: Normal appearance - ENT Exam ENT Exam: Normal Exam - Respiratory Exam Respiratory Exam: Wheezes. absent: Rales, Rhonchi Additional comments: Scattered b/l bibasal expiratory wheezing. - Cardiovascular Exam Cardiovascular Exam: REGULAR RHYTHM, +S1, +S2 - GI/Abdominal Exam GI & Abdominal Exam: Soft, Normal Bowel Sounds. absent: Tenderness - Extremities Exam Extremities Exam: Normal Inspection. absent: Pedal Edema - Neurological Exam Neurological Exam: Alert, Awake, Oriented x3 - Psychiatric Exam Psychiatric exam: Normal Mood - Skin Skin Exam: Intact Assessment and Plan - Assessment and Plan (Free Text) Plan: 61 YO male with PMH of COPD is admitted to [facility] for COPD exacerbation. 1) COPD exacerbation -improving -CXR; no acute pulmonary disease --O2 NC PRN ---Duoneb q4h --tapering methylpredisolone 40 mg IV BID -continue advir BID -walk test failed. will need O2 home.pending approval 2) Leukocytosis, thrombocytosis -resolved -wbc trending down 13.4-9.8 -likely 2/2 to steroid use -will continue to monitor 3) Smoking -1.5packs a day x 50 yrs -currently smokes 4/day -nicotine patch 4) DVT prophylaxis -lovenox 40 mg sc
[2017-03-21] MEDS: MethylPREDNISolone 40 mg Vial IV SCH ×2 (10:45→16:13)
[2017-03-21 13:30] LABS: BANDS 1 % (0-2); BLASTS 2 % (0-0); LYMPHOCYTE 3 % (20-50); METAMYELOCYTE 1 % (0-0); MONOCYTE 11 % (0-10); NEUTROPHIL 82 % (42-75); PLATELET ESTIMATE NORMAL (NORMAL); TOTAL CELLS COUNTED 100
[2017-03-21 13:31] LABS: MICROCYTOSIS SLIGHT
[2017-03-21 13:33] LABS: LARGE PLATELETS PRESENT
[2017-03-21] MEDS: Azithromycin 500 MG in Sodium Chloride 0.9% 250 ML IVPB SCH (16:42)
[2017-03-21] MEDS ORDERED: MethylPREDNISolone 40 mg Vial IV SCH (23:00)
[2017-03-22] MEDS: Albuterol-Ipratrop 3 mg / 0.5 (3 ml) UD INH SCH ×7 (00:05→23:06)
[2017-03-22 07:06] LABS: BLOOD UREA NITROGEN 14 mg/dl (9-20); CALCIUM 9.1 mg/dL (8.4-10.2); GFR AFRICAN-AMERICAN > 60; GFR NON-AFRICAN AMERICAN > 60
[2017-03-22] MEDS: Enoxaparin 40 mg Syringe SC SCH (08:53)
[2017-03-22] MEDS: Fluticasone-Salmeterol 500-50mcg Diskus IH SCH ×2 (08:53→21:24)
[2017-03-22] MEDS: MethylPREDNISolone 40 mg Vial IV SCH ×2 (08:54→17:11)
[2017-03-22] MEDS ORDERED: Potassium Chloride 20 mEq ER Tab PO ONE (09:00)
--- NOTE | 2017-03-22 09:08 | CP.PCM.PN ---
Subjective - Date & Time of Evaluation Date of Evaluation: 03/22/17 Time of Evaluation: 09:05 - Subjective Subjective: No acute overnight events. Pt doing well this AM. Seen eating breakfast. Endorses cough, white sputum. Denies chest pain, dyspnea, n/v/d/c and remains afebrile. Objective - Vital Signs/Intake and Output Vital Signs (last 24 hours): Temp Pulse Resp BP Pulse Ox 97.4 F L 67 18 118/78 97 03/22/17 08:00 03/22/17 08:00 03/22/17 08:00 03/22/17 08:00 03/22/17 08:00 - Medications Medications: Current Medications Albuterol/Ipratropium (Duoneb 3 Mg/0.5 Mg (3 Ml) Ud) 3 ml INH RQ4 [facility] Last Admin: 03/22/17 07:49 Dose: 3 ml Enoxaparin Sodium (Lovenox) 40 mg SC DAILY [facility] PRN Reason: Protocol Last Admin: 03/22/17 08:53 Dose: 40 mg Azithromycin 500 mg/ Sodium (Chloride) 250 mls @ 250 mls/hr IVPB Q24H [facility] PRN Reason: Protocol Last Admin: 03/21/17 16:42 Dose: 250 mls/hr Methylprednisolone (Solu-Medrol) 40 mg IV BID [facility] Last Admin: 03/22/17 08:54 Dose: 40 mg Nicotine (Nicoderm Cq) 1 patch TD DAILY [facility] Last Admin: 03/22/17 08:53 Dose: 1 patch Fluticasone/Salmeterol (Advair Diskus 500/50) 1 puff IH Q12 [facility] Last Admin: 03/22/17 08:53 Dose: 1 puff - Labs Labs: 03/21/17 07:14 03/22/17 06:10 - Constitutional Appears: No Acute Distress, Cachectic (chronic. no changes in weight ) - Head Exam Head Exam: ATRAUMATIC, NORMAL INSPECTION - Eye Exam Eye Exam: EOMI, Normal appearance - ENT Exam ENT Exam: Mucous Membranes Moist - Neck Exam Neck Exam: Full ROM - Respiratory Exam Respiratory Exam: Clear to Ausculation Bilateral, Wheezes (mild wheezing in the lower lobes b/l), NORMAL BREATHING PATTERN - Cardiovascular Exam Cardiovascular Exam: REGULAR RHYTHM, +S1, +S2 - GI/Abdominal Exam GI & Abdominal Exam: Soft, Normal Bowel Sounds. absent: Tenderness - Extremities Exam Extremities Exam: Full ROM - Back Exam Back Exam: NORMAL INSPECTION. absent: CVA tenderness (L), CVA tenderness (R) - Neurological Exam Neurological Exam: Alert, Awake, Oriented x3 - Psychiatric Exam Psychiatric exam: Normal Affect, Normal Mood - Skin Skin Exam: Dry, Intact, Normal Color, Warm Assessment and Plan - Assessment and Plan (Free Text) Assessment: 61 YO male with PMH of COPD is admitted to [facility] for COPD exacerbation. Pt requiring O2 and steroids. 1) COPD exacerbation -improving -CXR; no acute pulmonary disease -s/p methylprednisolone 125 mg IV -s/p Duoneb x 3 in ED -continue advir BID -Duoneb q4h -tapering methylpredisolone 40 mg IV BID -Azithromycin D4/5 -O2 NC @2L, will taper and reassess -walk test failed, will need home O2 2) Leukocytosis, thrombocytosis -resolved -wbc 9.8, PLT 365, pt remains afebrile -neg chest X-ray -likely 2/2 to steroid use -will continue to monitor 3) Smoking -1.5packs a day x 50 yrs -currently smokes 4/day -nicotine patch 4) Hypokalemia -K 3.2 -replace with 40meq KCl -monitor 5) DVT prophylaxis -lovenox 40 mg sc
[2017-03-22] MEDS: Azithromycin 500 MG in Sodium Chloride 0.9% 250 ML IVPB SCH (17:00)
[2017-03-23] MEDS: Albuterol-Ipratrop 3 mg / 0.5 (3 ml) UD INH SCH ×4 (05:00→15:43)
[2017-03-23 05:23] LABS: HEMOGLOBIN 13.3 g/dL (12.0-18.0); MEAN CELL VOLUME 93.8 fl (80.0-94.0); MEAN CORPUSCULAR HEMOGLOBIN 31.6 pg (27.0-31.0); MEAN CORPUSCULAR HGB CONC 33.7 g/dL (33.0-37.0); RBC 4.2 Mil/uL (4.40-5.90); RED CELL DISTRIBUTION WIDTH 13.4 % (11.5-14.5); WHITE BLOOD COUNT 8.3 K/uL (4.8-10.8)
[2017-03-23 05:41] LABS: BLOOD UREA NITROGEN 12 mg/dl (9-20); CALCIUM 9.6 mg/dL (8.4-10.2); GFR AFRICAN-AMERICAN > 60; GFR NON-AFRICAN AMERICAN > 60
--- NOTE | 2017-03-23 07:28 | CP.PCM.PN ---
Subjective - Date & Time of Evaluation Date of Evaluation: 03/23/17 Time of Evaluation: 07:28 Objective - Vital Signs/Intake and Output Vital Signs (last 24 hours): Temp Pulse Resp BP Pulse Ox 98.2 F 75 18 114/83 95 03/23/17 05:00 03/23/17 05:00 03/23/17 05:00 03/23/17 05:00 03/23/17 05:00 - Medications Medications: Current Medications Albuterol/Ipratropium (Duoneb 3 Mg/0.5 Mg (3 Ml) Ud) 3 ml INH RQ4 [facility] Last Admin: 03/23/17 05:00 Dose: 3 ml Enoxaparin Sodium (Lovenox) 40 mg SC DAILY [facility] PRN Reason: Protocol Last Admin: 03/22/17 08:53 Dose: 40 mg Azithromycin 500 mg/ Sodium (Chloride) 250 mls @ 250 mls/hr IVPB Q24H [facility] PRN Reason: Protocol Last Admin: 03/22/17 17:00 Dose: 250 mls/hr Methylprednisolone (Solu-Medrol) 40 mg IV BID [facility] Last Admin: 03/22/17 17:11 Dose: 40 mg Nicotine (Nicoderm Cq) 1 patch TD DAILY [facility] Last Admin: 03/22/17 08:53 Dose: 1 patch Fluticasone/Salmeterol (Advair Diskus 500/50) 1 puff IH Q12 [facility] Last Admin: 03/22/17 21:24 Dose: 1 puff - Labs Labs: 03/23/17 04:20 03/23/17 04:20
[2017-03-23] MEDS: Fluticasone-Salmeterol 500-50mcg Diskus IH SCH (08:14)
[2017-03-23] MEDS: MethylPREDNISolone 40 mg Vial IV SCH (08:15)
[2017-03-23] MEDS: Enoxaparin 40 mg Syringe SC SCH (08:15)
--- NOTE | 2017-03-23 10:42 | CP.PCM.DIS ---
Provider - Provider Date of Admission: 03/19/17 16:24 Attending physician: Cici Avendano MD Time Spent in preparation of Discharge (in minutes): 20 Hospital Course - Lab Results Lab Results: Most Recent Lab Values WBC 8.3 K/uL (4.8-10.8) 03/23/17 04:20 RBC 4.20 Mil/uL (4.40-5.90) L 03/23/17 04:20 Hgb 13.3 g/dL (12.0-18.0) 03/23/17 04:20 Hct 39.4 % (35.0-51.0) 03/23/17 04:20 MCV 93.8 fl (80.0-94.0) 03/23/17 04:20 MCH 31.6 pg (27.0-31.0) H 03/23/17 04:20 MCHC 33.7 g/dL (33.0-37.0) 03/23/17 04:20 RDW 13.4 % (11.5-14.5) 03/23/17 04:20 Plt Count 339 K/uL (130-400) 03/23/17 04:20 MPV 7.5 fl (7.2-11.7) 03/21/17 07:14 Neut % (Auto) 83.7 % (50.0-75.0) H 03/21/17 07:14 Lymph % (Auto) 6.6 % (20.0-40.0) L 03/21/17 07:14 [place] % (Auto) 9.5 % (0.0-10.0) 03/21/17 07:14 Eos % (Auto) 0.0 % (0.0-4.0) 03/21/17 07:14 Baso % (Auto) 0.2 % (0.0-2.0) 03/21/17 07:14 Neut # 8.2 K/uL (1.8-7.0) H 03/21/17 07:14 Lymph # 0.6 K/uL (1.0-4.3) L 03/21/17 07:14 [place] # 0.9 K/uL (0.0-0.8) H 03/21/17 07:14 Eos # 0.0 K/uL (0.0-0.7) 03/21/17 07:14 Baso # 0.0 K/uL (0.0-0.2) 03/21/17 07:14 Neutrophils % (Manual) 82 % (42-75) H 03/21/17 07:14 Band Neutrophils % 1 % (0-2) 03/21/17 07:14 Lymphocytes % (Manual) 3 % (20-50) L 03/21/17 07:14 Monocytes % (Manual) 11 % (0-10) H 03/21/17 07:14 Metamyelocytes % 1 % (0-0) H 03/21/17 07:14 Blast Cells % 2 % (0-0) H 03/21/17 07:14 Platelet Estimate Normal (NORMAL) 03/21/17 07:14 Large Platelets Present 03/21/17 07:14 Microcytosis (manual) Slight 03/21/17 07:14 Macrocytosis (manual) Slight 03/21/17 07:14 Sodium 137 mmol/l (132-148) 03/23/17 04:20 Potassium 3.8 MMOL/L (3.6-5.0) 03/23/17 04:20 Chloride 102 mmol/L (98-107) 03/23/17 04:20 Carbon Dioxide 25 mmol/L (22-30) 03/23/17 04:20 Anion Gap 14 (10-20) 03/23/17 04:20 BUN 12 mg/dl (9-20) 03/23/17 04:20 Creatinine 0.5 mg/dl (0.8-1.5) L 03/23/17 04:20 Est GFR ( Amer) > 60 03/23/17 04:20 Est GFR (Non-Af Amer) > 60 03/23/17 04:20 Random Glucose 106 mg/dL (75-110) 03/23/17 04:20 Calcium 9.6 mg/dL (8.4-10.2) 03/23/17 04:20 Total Bilirubin 0.4 mg/dl (0.2-1.3) 03/19/17 10:41 AST 23 U/L (17-59) 03/19/17 10:41 ALT 27 U/L (21-72) 03/19/17 10:41 Alkaline Phosphatase 54 U/L (38-126) 03/19/17 10:41 NT-Pro-B Natriuret Pep 139 pg/ml (0-900) 03/21/17 04:00 Total Protein 7.7 G/DL (6.3-8.2) 03/19/17 10:41 Albumin 4.4 g/dL (3.5-5.0) 03/19/17 10:41 Globulin 3.3 gm/dL (2.2-3.9) 03/19/17 10:41 Albumin/Globulin Ratio 1.4 (1.0-2.1) 03/19/17 10:41 Hepatitis C Antibody Negative (NEGATIVE) 03/21/17 07:14 Influenza Typ A,B (EIA) Negative for flu a/b (NEGATIVE) 03/19/17 14:38 - Hospital Course Hospital Course: 61 YO male with PMH of COPD is admitted to [facility] for acute COPD exacerbation. During his stay, pt was treated with IV steroids, s/p 5 days of azithromycin. Pt is currently hemodynamically stable, remains afebrile and is breathing comfortably in RA. Pt d/c home with Prednisone 10mg tabs (40mg x 3 days, 20mg x 3 days and 10mg x 3 days) and follow in [facility] on 04/03/[address] Pichardo. Discharge Exam - Head Exam Head Exam: ATRAUMATIC, NORMAL INSPECTION, NORMOCEPHALIC - Eye Exam Eye Exam: EOMI, Normal appearance - ENT Exam ENT Exam: Mucous Membranes Moist - Neck Exam Neck exam: Full Rom - Respiratory Exam Respiratory Exam: Clear to PA & Lateral, Wheezes (mild occasional ), NORMAL BREATHING PATTERN. absent: Respiratory Distress - Cardiovascular Exam Cardiovascular Exam: REGULAR RHYTHM, +S1, +S2 - GI/Abdominal Exam GI & Abdominal Exam: Normal Bowel Sounds, Soft. absent: Tenderness - Extremities Exam Extremities exam: full ROM, pedal edema - Back Exam Back exam: NORMAL INSPECTION - Neurological Exam Neurological exam: Alert, Oriented x3 - Psychiatric Exam Psychiatric exam: Normal Affect, Normal Mood - Skin Skin Exam: Dry, Intact, Normal Color, Warm Discharge Plan - Discharge Medications Prescriptions: Fluticasone/Salmeterol 500/50 [Advair Diskus 500/50] 1 puff IH Q12 #1 puff predniSONE [Prednisone] 10 mg PO DAILY 9 Days #25 tab - Follow Up Plan Condition: IMPROVED Disposition: HOME/ ROUTINE Patient education suggested?: Yes Instructions: COPD (Chronic Obstructive Pulmonary Disease) (DC) Additional Instructions: Continue PO steroid taper Follow up in [facility] with Dr. Pichardo on 04/03/17 @10:00AM
[2017-03-23] MEDS ORDERED: Azithromycin 500 MG in Sodium Chloride 0.9% 250 ML IVPB ONE (12:38)
[2017-03-23] MEDS ORDERED: Azithromycin 500 MG in Sodium Chloride 0.9% 250 ML IVPB SCH (12:45)
[2017-03-23 15:41] VITALS: BP 109/77; PULSE 84; RESP 20; TEMP 98
[2017-03-24 10:46] VITALS: O2SAT 97
== END 2017-03-23 16:45 | disposition home or self-care (01) | DRG 88 ==
LOC: H.ER 09:32 → H.ERHOLD 16:24 → H.TEL 21:09
PROVIDERS: ADMIT Family Medicine Geriatric Medicine; ATTEND Family Medicine Geriatric Medicine
PROC: 3E0F7GC Introduction of Other Therapeutic Substance into Respiratory Tract, Via Natural or Artificial Opening (ICD-10-PCS; principal; 2017-03-20)
DX: J44.1 Chronic obstructive pulmonary disease with (acute) exacerbation (principal); D72.829 Elevated white blood cell count, unspecified; E87.6 Hypokalemia; F17.200 Nicotine dependence, unspecified, uncomplicated; Z87.01 Personal history of pneumonia (recurrent); R79.89 Other specified abnormal findings of blood chemistry

== ENCOUNTER 2017-04-10 14:29 | Observation (INO) | payer SELFPAY ==
[2017-04-10 14:30] VITALS: BMI 20.9
[2017-04-10] MEDS ORDERED: Sodium Chloride 0.9% 1,000 ML IV STA (16:00)
--- NOTE | 2017-04-10 16:15 | ED PDOC ---
HPI: Abdomen Time Seen by Provider: 04/10/17 15:34 Chief Complaint (Nursing): GI Problem Chief Complaint (Provider): Abdominal pain History Per: Patient History/Exam Limitations: no limitations Onset/Duration Of Symptoms: Days (2) Outside of [place] travel?: No Current Symptoms Are (Timing): Still Present Associated Symptoms: Nausea, Vomiting, Diarrhea. denies: Urinary Symptoms Additional History Per: Patient Additional Complaint(s): 61yo male with history of COPD, presents to ED with complaints of nausea, vomiting, diarrhea since yesterday. States he now has abdominal pain as well and associated chills. Denies any fever, urinary symptoms. No other medical complaints. Past Medical History Reviewed: Historical Data, Nursing Documentation, Vital Signs Vital Signs: Last Vital Signs Temp 98.5 F 04/10/17 19:40 Pulse 88 04/10/17 19:40 Resp 20 04/10/17 19:40 BP 104/74 04/10/17 19:40 Pulse Ox 100 04/10/17 19:40 - Medical History PMH: Asthma, COPD, Emphysema, Pneumonia - Surgical History Surgical History: No Surg Hx - Family History Family History: States: Unknown Family Hx - Home Medications Home Medications: Ambulatory Orders Medication Instructions Recorded Albuterol HFA [Ventolin HFA 90 1 - 2 puff IH Q4H PRN #1 bottle 03/10/17 mcg/actuation (8 g)] Albuterol 0.083% [Albuterol 0.083% 2.5 mg INH Q6H PRN 03/19/17 Inhal Fernanda (2.5 mg/3 ml) UD] Fluticasone/Salmeterol 500/50 1 puff IH Q12 #1 puff 03/23/17 [Advair Diskus 500/50] - Allergies Allergies/Adverse Reactions: Allergies Allergy/AdvReac Type Severity Reaction Status Date / Time No Known Allergies Allergy Verified 04/10/17 15:15 Review of Systems ROS Statement: Except As Marked, All Systems Reviewed And Found Negative Constitutional: Positive for: Chills. Negative for: Fever Gastrointestinal: Positive for: Nausea, Vomiting, Abdominal Pain, Diarrhea Genitourinary Male: Negative for: Dysuria, Hematuria Physical Exam - Reviewed Nursing Documentation Reviewed: Yes Vital Signs Reviewed: Yes - Physical Exam Appears: Positive for: Non-toxic Head Exam: Positive for: ATRAUMATIC Skin: Positive for: Normal Color Neck: Positive for: Supple Cardiovascular/Chest: Positive for: Regular Rate, Rhythm Respiratory: Positive for: Normal Breath Sounds. Negative for: Wheezing Gastrointestinal/Abdominal: Positive for: Normal Exam, Soft. Negative for: Tenderness, Guarding, Rebound Neurologic/Psych: Positive for: Alert, Oriented - Laboratory Results Result Diagrams: 04/10/17 21:19 04/10/17 16:23 - ECG Interpretation Of ECG: NSR @ 89, no ST-T changes. O2 Sat by Pulse Oximetry: 93 Pulse Ox Interpretation: Abnormal - Radiology X-Ray: Interpreted by Me X-Ray Interpretation: No Acute Disease Medical Decision Making Medical Decision Making: Impression: Gastroenteritis, viral syndrome Plan: -- CT Abdomen w/ IV Contrast -- Labs -- IV Fluids -- Zofran 4mg IVP -- Rapid flu Scribe Attestation: Documented by Tiffany Romano acting as a scribe for Lisa Melgar MD. Provider Attestation: All medical record entries made by the Scribe were at my direction and personally dictated by me. I have reviewed the chart and agree that the record accurately reflects my personal performance of the history, physical exam, medical decision making, and the department course for this patient. I have also personally directed, reviewed, and agree with the discharge instructions and disposition. Disposition - Clinical Impression Clinical Impression: SIRS (systemic inflammatory response syndrome), COPD exacerbation - Patient ED Disposition Is Patient to be Admitted: Yes - Disposition Disposition Time: 23:21 Condition: STABLE Forms: [employer] (Chinese) - Pt Status Changed To: Hospital Disposition Of: Observation - POA Present On Arrival: None
[2017-04-10 16:39] LABS: BASO # 0.1 K/uL (0.0-0.2); BASO % 0.6 % (0.0-2.0); HEMOGLOBIN 13.5 g/dL (12.0-18.0); LYMPH # 0.5 K/uL (1.0-4.3); LYMPH % 2.5 % (20.0-40.0); MEAN CELL VOLUME 93.9 fl (80.0-94.0); MEAN CORPUSCULAR HEMOGLOBIN 31.5 pg (27.0-31.0); MEAN CORPUSCULAR HGB CONC 33.6 g/dL (33.0-37.0); MEAN PLATELET VOLUME 7.1 fl (7.2-11.7); MONO # 1.1 K/uL (0.0-0.8); MONO % 5.5 % (0.0-10.0); NEUT % 91.4 % (50.0-75.0); PLATELET COUNT 269 K/uL (130-400); RBC 4.28 Mil/uL (4.40-5.90); RED CELL DISTRIBUTION WIDTH 13.9 % (11.5-14.5); WHITE BLOOD COUNT 19.8 K/uL (4.8-10.8)
[2017-04-10 16:45] LABS: SQUAMOUS EPITHIAL < 1 /hpf (0-5); URINE BILIRUBIN NEGATIVE (NEGATIVE); URINE BLOOD NEGATIVE (NEGATIVE); URINE CLARITY SLIGHTY-CLOUDY (Clear); URINE COLOR YELLOW (YELLOW); URINE GLUCOSE (UA) NEG (Normal); URINE LEUKOCYTE ESTERASE NEG Leu/uL (Negative); URINE NITRATE NEGATIVE (NEGATIVE); URINE PROTEIN 30 mg/dL (NEGATIVE); URINE UROBILINOGEN 0.2-1.0 mg/dL (0.2-1.0)
[2017-04-10 16:50] LABS: ALB/GLOB RATIO 1.2 (1.0-2.1); ALT/SGPT 27 U/L (21-72); AST/SGOT 25 U/L (17-59); BLOOD UREA NITROGEN 10 mg/dl (9-20); CALCIUM 9.6 mg/dL (8.4-10.2); GFR AFRICAN-AMERICAN > 60; GFR NON-AFRICAN AMERICAN > 60; LIPASE 44 U/L (23-300)
[2017-04-10 16:59] LABS: PARTIAL THROMBOPLASTIN TIME 34.7 Seconds (25.6-37.1); PROTHROMBIN TIME 11.3 Seconds (9.8-13.1)
[2017-04-10] MEDS ORDERED: Sodium Chloride 0.9% 50 ML IV ONE (18:10)
[2017-04-10] MEDS ORDERED: Iohexol 300 100 ML IJ ONE (18:10)
[2017-04-10 18:22] LABS: BANDS 6 % (0-2); LYMPHOCYTE 4 % (20-50); MONOCYTE 6 % (0-10); NEUTROPHIL 84 % (42-75); TOTAL CELLS COUNTED 100
[2017-04-10 18:23] LABS: PLATELET ESTIMATE NORMAL (NORMAL)
[2017-04-10 18:25] LABS: GIANT PLATELETS PRESENT
--- NOTE | 2017-04-10 18:54 | CT ---
PROCEDURE: CT Abdomen and Pelvis with contrast HISTORY: Vomiting, diarrhea, abd pain COMPARISON: Comparison is made to the previous study dated 05/15/2010 TECHNIQUE: Contrast dose: 80 mL of Omnipaque 300. Axial and reformatted coronal and sagittal CT images of the abdomen and pelvis were obtained after IV contrast administration. Radiation dose: Total exam DLP = 277.04 mGy-cm. This CT exam was performed using one or more of the following dose reduction techniques: Automated exposure control, adjustment of the mA and/or kV according to patient size, and/or use of iterative reconstruction technique. FINDINGS: LOWER THORAX: There is heterogeneous infiltrate at the left lower lobe may represent pneumonia or atelectasis. No evidence of significant pleural effusion. LIVER: There is low-attenuation 6.5 millimeter lesions seen at the mid right liver lobe appears larger comparing to the previous exam may represent benign liver cysts. There is also low-attenuation lesion at the left liver lobe measures 6.5 millimeter. The liver is mildly enlarged. GALLBLADDER AND BILE DUCTS: No evidence of acute cholecystitis. PANCREAS: Unremarkable. No gross lesion or ductal dilatation. SPLEEN: Unremarkable. ADRENALS: Unremarkable. No mass. KIDNEYS AND URETERS: Unremarkable. No hydronephrosis. No solid mass. There is low-attenuation cyst at the midpole left kidney measures 3.1 centimeter. VASCULATURE: Unremarkable. No aortic aneurysm. BOWEL: Unremarkable. No obstruction. No gross mural thickening. APPENDIX: Normal appendix. PERITONEUM: Unremarkable. No free fluid. No free air. LYMPH NODES: Unremarkable. No enlarged lymph nodes. BLADDER: Unremarkable. REPRODUCTIVE: Unremarkable. BONES: No acute fracture. OTHER FINDINGS: None. IMPRESSION: No CT evidence of acute cholecystitis, pancreatitis or appendicitis. There are 2 small less than 1 centimeter low-attenuation lesions in the right and left liver lobes appear larger compared to the previous exam. Left renal cyst.
[2017-04-10 21:32] LABS: BASO # 0.1 K/uL (0.0-0.2); BASO % 0.4 % (0.0-2.0); EOS % 0.2 % (0.0-4.0); HEMOGLOBIN 12.2 g/dL (12.0-18.0); LYMPH # 1.2 K/uL (1.0-4.3); LYMPH % 6.4 % (20.0-40.0); MEAN CELL VOLUME 95.2 fl (80.0-94.0); MEAN CORPUSCULAR HEMOGLOBIN 31.6 pg (27.0-31.0); MEAN CORPUSCULAR HGB CONC 33.2 g/dL (33.0-37.0); MEAN PLATELET VOLUME 7.2 fl (7.2-11.7); MONO # 0.9 K/uL (0.0-0.8); MONO % 5.1 % (0.0-10.0); NEUT # 15.9 K/uL (1.8-7.0); NEUT % 87.9 % (50.0-75.0); RBC 3.87 Mil/uL (4.40-5.90); WHITE BLOOD COUNT 18.1 K/uL (4.8-10.8)
--- NOTE | 2017-04-10 23:03 | RAD ---
EXAM: XR Chest, 2 Views CLINICAL HISTORY: 61 years old, male; Signs and symptoms; Cough and fever; Symptoms not specified TECHNIQUE: Frontal and lateral views of the chest. COMPARISON: No relevant prior studies available. FINDINGS: Lungs: The lungs are hyperinflated and hyperlucent suggesting emphysema. Diffuse bilateral interstitial lung markings secondary to fibrosis. No focal consolidation. Pleural space: Unremarkable. No pneumothorax. Heart: Unremarkable. No cardiomegaly. Mediastinum: Unremarkable. Bones/joints: Unremarkable. IMPRESSION: No acute cardiopulmonary disease. Prominent interstitial lung markings bilaterally secondary to fibrosis. Emphysema.
[2017-04-10] MEDS ORDERED: Albuterol-Ipratrop 3 mg / 0.5 (3 ml) UD INH STA (23:13)
[2017-04-10] MEDS ORDERED: Albuterol-Ipratrop 3 mg / 0.5 (3 ml) UD ONE (23:40)
[2017-04-11 01:16] VITALS: RESP 19
--- NOTE | 2017-04-11 01:29 | CP.PCM.HP ---
History of Present Illness - History of Present Illness History of Present Illness: 61 yo ,m, PMHx/o COPD presents to ED c/o 6 nonbloddy vomiting started yesterday in the morning associated with 5-6 nonbloddy diarrhea and body aches. Patient reports occs cough with white color expectoration but not change in the volume of suptum or purulence noted after last discharge. Denies SOB and reports using his ventolin as needed 1 time/day and Advair everyday. Denies chest pain, palpitation, abdominal cramps, fever, nasal congestion, sick contact, odd food ingestion, dizziness, weakness. Patient was noted with wheezing in ED prior my evaluation even when he denies coming for SOB and pt was decided to be admitted for Observation after treatment . PMHx: COPD Allergies: NKDA Meds: Albuterol inha. advair PSHx: RT. neck cystectomy Social: ToB-1/2 to1 PPD, howerver reports that has not been smoking almost since new year. ETOH-3-4 beers daily, DRUG-none Home: Lives with roommates Not working now. waiting for disability FH: Mother had some type of lung problem. Not sure if it was cancer or COPD NHC: Dr. Pichardo. last seen 04/03/17 after DC for COPD exacerbation Code Status: Patient is a full code. Ed Course Vs:NL Labs: CBC 18.1>12.2<246 CMP: nl. Rapid flu neg Imaging: CT Abd: no CT evidence of acute cholecystitis, pancreatitis or appendicitis, 2 small liver cyst Meds:IV Fluids, Zofran 4mg IVP Present on Admission - Present on Admission Any Indicators Present on Admission: No History of DVT/PE: No History of Uncontrolled Diabetes: No Review of Systems - Constitutional Constitutional: As Per HPI - EENT Eyes: As Per HPI - Cardiovascular Cardiovascular: As Per HPI - Respiratory Respiratory: As Per HPI - Gastrointestinal Gastrointestinal: As Per HPI, Diarrhea, Vomiting - Neurological Neurological: As Per HPI Past Patient History - Infectious Disease Hx of Infectious Diseases: None - Tetanus Immunizations Tetanus Immunization: Unknown - Past Medical History & Family History Past Medical History?: Yes - Past Social History Smoking Status: Light Smoker < 10 Cigarettes Daily - CARDIAC Hx Cardiac Disorders: No - PULMONARY Hx Asthma: Yes Hx Chronic Obstructive Pulmonary Disease (COPD): Yes Hx Emphysema: Yes Hx Pneumonia: Yes - NEUROLOGICAL Hx Neurological Disorder: No - HEENT Hx HEENT Problems: No - ENDOCRINE/METABOLIC Hx Endocrine Disorders: No - INTEGUMENTARY Hx Dermatological Problems: No - MUSCULOSKELETAL/RHEUMATOLOGICAL Hx Falls: Yes - GASTROINTESTINAL Hx Gastrointestinal Disorders: No - PSYCHIATRIC Hx Psychophysiologic Disorder: No Hx Substance Use: Yes (marijuana) - SURGICAL HISTORY Hx Surgeries: Yes (neck cyst right side) Other/Comment: right neck cyst removal 5 years ago - ANESTHESIA Hx Anesthesia: Yes Hx Anesthesia Reactions: No Hx Malignant Hyperthermia: No Meds Allergies/Adverse Reactions: Allergies Allergy/AdvReac Type Severity Reaction Status Date / Time No Known Allergies Allergy Verified 04/10/17 15:15 Physical Exam - Constitutional Appears: Toxic, No Acute Distress - Head Exam Head Exam: ATRAUMATIC, NORMOCEPHALIC - Eye Exam Eye Exam: Normal appearance - ENT Exam ENT Exam: Normal Exam - Neck Exam Neck exam: Positive for: Normal Inspection - Respiratory Exam Respiratory Exam: Rales. absent: Rhonchi, Wheezes Additional comments: b/L dry rales bibasal - Cardiovascular Exam Cardiovascular Exam: REGULAR RHYTHM, +S1, +S2 - GI/Abdominal Exam GI & Abdominal Exam: Normal Bowel Sounds, Soft. absent: Guarding, Rebound, Tenderness - Extremities Exam Extremities exam: Positive for: normal inspection. Negative for: pedal edema - Back Exam Back exam: NORMAL INSPECTION - Neurological Exam Neurological exam: Alert, Oriented x3 - Psychiatric Exam Psychiatric exam: Normal Affect, Normal Mood - Skin Skin Exam: Intact Results - Vital Signs Recent Vital Signs: Last Vital Signs Temp 97.9 F 04/11/17 01:14 Pulse 69 04/11/17 01:14 Resp 19 04/11/17 01:14 BP 111/73 04/11/17 01:14 Pulse Ox 96 04/11/17 01:14 - Labs Result Diagrams: 04/10/17 21:19 04/10/17 16:23 Labs: Laboratory Results - last 24 hr 04/10/17 04/10/17 04/10/17 16:23 16:23 16:23 WBC 19.8 H D RBC 4.28 L Hgb 13.5 Hct 40.2 MCV 93.9 MCH 31.5 H MCHC 33.6 RDW 13.9 Plt Count 269 MPV 7.1 L Neut % (Auto) 91.4 H Lymph % (Auto) 2.5 L [place] % (Auto) 5.5 Eos % (Auto) 0.0 Baso % (Auto) 0.6 Neut # (Auto) 18.0 H Lymph # (Auto) 0.5 L [place] # (Auto) 1.1 H Eos # (Auto) 0.0 Baso # (Auto) 0.1 Neutrophils % (Manual) 84 H Band Neutrophils % 6 H Lymphocytes % (Manual) 4 L Monocytes % (Manual) 6 Platelet Estimate Normal Giant Platelets Present PT INR APTT Sodium 139 Potassium 3.9 Chloride 103 Carbon Dioxide 24 Anion Gap 16 BUN 10 Creatinine 0.5 L Est GFR ( Amer) > 60 Est GFR (Non-Af Amer) > 60 POC Glucose (mg/dL) Random Glucose 117 H Calcium 9.6 Total Bilirubin 0.7 AST 25 ALT 27 Alkaline Phosphatase 52 Total Protein 7.5 Albumin 4.0 Globulin 3.5 Albumin/Globulin Ratio 1.2 Lipase 44 Urine Color Urine Clarity Urine pH Ur Specific [place] Urine Protein Urine Glucose (UA) Urine Ketones Urine Blood Urine Nitrate Urine Bilirubin Urine Urobilinogen Ur Leukocyte Esterase Urine RBC (Auto) Urine Microscopic WBC Ur Squamous Epith Cells Influenza Typ A,B (EIA) Negative for flu a/b 04/10/17 04/10/17 04/10/17 16:23 16:23 18:51 WBC RBC Hgb Hct MCV MCH MCHC RDW Plt Count MPV Neut % (Auto) Lymph % (Auto) [place] % (Auto) Eos % (Auto) Baso % (Auto) Neut # (Auto) Lymph # (Auto) [place] # (Auto) Eos # (Auto) Baso # (Auto) Neutrophils % (Manual) Band Neutrophils % Lymphocytes % (Manual) Monocytes % (Manual) Platelet Estimate Giant Platelets PT 11.3 INR 1.0 APTT 34.7 Sodium Potassium Chloride Carbon Dioxide Anion Gap BUN Creatinine Est GFR ( Amer) Est GFR (Non-Af Amer) POC Glucose (mg/dL) 96 Random Glucose Calcium Total Bilirubin AST ALT Alkaline Phosphatase Total Protein Albumin Globulin Albumin/Globulin Ratio Lipase Urine Color Yellow Urine Clarity Slighty-cloudy Urine pH 8.0 Ur Specific [place] 1.019 Urine Protein 30 Urine Glucose (UA) Neg Urine Ketones Trace Urine Blood Negative Urine Nitrate Negative Urine Bilirubin Negative Urine Urobilinogen 0.2-1.0 Ur Leukocyte Esterase Neg Urine RBC (Auto) 4 H Urine Microscopic WBC 1 Ur Squamous Epith Cells < 1 Influenza Typ A,B (EIA) 04/10/17 21:19 WBC 18.1 H RBC 3.87 L Hgb 12.2 Hct 36.8 MCV 95.2 H MCH 31.6 H MCHC 33.2 RDW 14.0 Plt Count 246 MPV 7.2 Neut % (Auto) 87.9 H Lymph % (Auto) 6.4 L [place] % (Auto) 5.1 Eos % (Auto) 0.2 Baso % (Auto) 0.4 Neut # (Auto) 15.9 H Lymph # (Auto) 1.2 [place] # (Auto) 0.9 H Eos # (Auto) 0.0 Baso # (Auto) 0.1 Neutrophils % (Manual) Band Neutrophils % Lymphocytes % (Manual) Monocytes % (Manual) Platelet Estimate Giant Platelets PT INR APTT Sodium Potassium Chloride Carbon Dioxide Anion Gap BUN Creatinine Est GFR ( Amer) Est GFR (Non-Af Amer) POC Glucose (mg/dL) Random Glucose Calcium Total Bilirubin AST ALT Alkaline Phosphatase Total Protein Albumin Globulin Albumin/Globulin Ratio Lipase Urine Color Urine Clarity Urine pH Ur Specific [place] Urine Protein Urine Glucose (UA) Urine Ketones Urine Blood Urine Nitrate Urine Bilirubin Urine Urobilinogen Ur Leukocyte Esterase Urine RBC (Auto) Urine Microscopic WBC Ur Squamous Epith Cells Influenza Typ A,B (EIA) Assessment & Plan - Assessment and Plan (Free Text) Plan: 61 yo ,m, PMHx/o COPD admitted for Observation for COPD exacerbation and Gastroenteritis 1) Gastroenteritis -mot likely viral etiology -s/p NS 1 l,Zofran 4mg IVP -urine tox to r/o diarrhea induced by drugs or meds withdrawal: Pt smokes marijuana. -Ova parasite -f/u CBC, HIV test 2) COPD -controlled -last seen in clinic 04/03: PFTs reviewed which demonstrate a restrictive pattern (Decreased FVC 2.33L, FEV1 <55%, and normal FEV1/FVC). Due to extensive smoking history, ddx includes idiopathic pulmonary fibrosis -s/p Duoneb x 2 dosis -s/p Metylprednisone 125 mg -Duoneb PRN Q 4h. -Methylprednisone 40 mg daily -c/w Advair 3) DVT Prophylaxis - Lovenox 40 mg sc daily
--- NOTE | 2017-04-11 01:29 | CP.PCM.PN ---
Objective - Vital Signs/Intake and Output Vital Signs (last 24 hours): Temp Pulse Resp BP Pulse Ox 97.9 F 69 19 111/73 96 04/11/17 01:14 04/11/17 01:14 04/11/17 01:14 04/11/17 01:14 04/11/17 01:14 Intake and Output: 04/10/17 04/11/17 18:59 06:59 Intake Total 1999 Balance 1999 - Labs Labs: 04/10/17 21:19 04/10/17 16:23 PT 11.3 Seconds (9.8-13.1) 04/10/17 16:23 INR 1.0 (0.9-1.2) 04/10/17 16:23 APTT 34.7 Seconds (25.6-37.1) 04/10/17 16:23
[2017-04-11] MEDS ORDERED: Albuterol-Ipratrop 3 mg / 0.5 (3 ml) UD INH PRN (01:37)
[2017-04-11 07:12] LABS: BASO % 0.1 % (0.0-2.0); HEMOGLOBIN 13.9 g/dL (12.0-18.0); LYMPH # 0.3 K/uL (1.0-4.3); LYMPH % 2.8 % (20.0-40.0); MEAN CELL VOLUME 95.4 fl (80.0-94.0); MEAN CORPUSCULAR HEMOGLOBIN 32.1 pg (27.0-31.0); MEAN CORPUSCULAR HGB CONC 33.6 g/dL (33.0-37.0); MEAN PLATELET VOLUME 7.4 fl (7.2-11.7); MONO # 0.1 K/uL (0.0-0.8); MONO % 0.8 % (0.0-10.0); NEUT # 10.7 K/uL (1.8-7.0); NEUT % 96.3 % (50.0-75.0); NRBC % 0.1 % (0.0-0.0); PLATELET COUNT 278 K/uL (130-400); RBC 4.33 Mil/uL (4.40-5.90); RED CELL DISTRIBUTION WIDTH 14.2 % (11.5-14.5); WHITE BLOOD COUNT 11.1 K/uL (4.8-10.8)
[2017-04-11 08:35] VITALS: BP 103/73; PULSE 67; TEMP 97.8; O2SAT 96
[2017-04-11] MEDS ORDERED: MethylPREDNISolone 40 mg Vial IVP SCH (09:00)
[2017-04-11] MEDS ORDERED: Fluticasone-Salmeterol 500-50mcg Diskus IH SCH (09:00)
[2017-04-11] MEDS ORDERED: Enoxaparin 40 mg Syringe SC SCH (09:00)
[2017-04-11] MEDS ORDERED: methylPREDNISolone 40 MG in Sodium Chloride 0.9% 50 ML IV SCH (09:00)
--- NOTE | 2017-04-11 09:33 | CARD ---
APPROVED REPORT EKG Measurement Heart [id number] [place] [id number] <Conclusion> Normal sinus rhythm Normal ECG
--- NOTE | 2017-04-11 10:35 | CP.PCM.DIS ---
Provider - Provider Date of Admission: 04/10/17 23:14 Attending physician: Cici Avendano MD Time Spent in preparation of Discharge (in minutes): 15 Diagnosis - Discharge Diagnosis (1) Gastroenteritis, acute Status: Resolved Hospital Course - Lab Results Lab Results: Most Recent Lab Values WBC 11.1 K/uL (4.8-10.8) H 04/11/17 05:30 RBC 4.33 Mil/uL (4.40-5.90) L 04/11/17 05:30 Hgb 13.9 g/dL (12.0-18.0) 04/11/17 05:30 Hct 41.3 % (35.0-51.0) 04/11/17 05:30 MCV 95.4 fl (80.0-94.0) H 04/11/17 05:30 MCH 32.1 pg (27.0-31.0) H 04/11/17 05:30 MCHC 33.6 g/dL (33.0-37.0) 04/11/17 05:30 RDW 14.2 % (11.5-14.5) 04/11/17 05:30 Plt Count 278 K/uL (130-400) 04/11/17 05:30 MPV 7.4 fl (7.2-11.7) 04/11/17 05:30 Neut % (Auto) 96.3 % (50.0-75.0) H 04/11/17 05:30 Lymph % (Auto) 2.8 % (20.0-40.0) L 04/11/17 05:30 [place]ys % (Auto) 0.8 % (0.0-10.0) 04/11/17 05:30 Eos % (Auto) 0.0 % (0.0-4.0) 04/11/17 05:30 Baso % (Auto) 0.1 % (0.0-2.0) 04/11/17 05:30 Neut # (Auto) 10.7 K/uL (1.8-7.0) H 04/11/17 05:30 Lymph # (Auto) 0.3 K/uL (1.0-4.3) L 04/11/17 05:30 Humphreys # (Auto) 0.1 K/uL (0.0-0.8) 04/11/17 05:30 Eos # (Auto) 0.0 K/uL (0.0-0.7) 04/11/17 05:30 Baso # (Auto) 0.0 K/uL (0.0-0.2) 04/11/17 05:30 Neutrophils % (Manual) 84 % (42-75) H 04/10/17 16:23 Band Neutrophils % 6 % (0-2) H 04/10/17 16:23 Lymphocytes % (Manual) 4 % (20-50) L 04/10/17 16:23 Monocytes % (Manual) 6 % (0-10) 04/10/17 16:23 Platelet Estimate Normal (NORMAL) 04/10/17 16:23 Giant Platelets Present 04/10/17 16:23 PT 11.3 Seconds (9.8-13.1) 04/10/17 16:23 INR 1.0 (0.9-1.2) 04/10/17 16:23 APTT 34.7 Seconds (25.6-37.1) 04/10/17 16:23 Sodium 139 mmol/l (132-148) 04/10/17 16:23 Potassium 3.9 MMOL/L (3.6-5.0) 04/10/17 16:23 Chloride 103 mmol/L (98-107) 04/10/17 16:23 Carbon Dioxide 24 mmol/L (22-30) 04/10/17 16:23 Anion Gap 16 (10-20) 04/10/17 16:23 BUN 10 mg/dl (9-20) 04/10/17 16:23 Creatinine 0.5 mg/dl (0.8-1.5) L 04/10/17 16:23 Est GFR ( Amer) > 60 04/10/17 16:23 Est GFR (Non-Af Amer) > 60 04/10/17 16:23 POC Glucose (mg/dL) 96 mg/dL (65-110) 04/10/17 18:51 Random Glucose 117 mg/dL (75-110) H 04/10/17 16:23 Calcium 9.6 mg/dL (8.4-10.2) 04/10/17 16:23 Total Bilirubin 0.7 mg/dl (0.2-1.3) 04/10/17 16:23 AST 25 U/L (17-59) 04/10/17 16:23 ALT 27 U/L (21-72) 04/10/17 16:23 Alkaline Phosphatase 52 U/L (38-126) 04/10/17 16:23 Total Protein 7.5 G/DL (6.3-8.2) 04/10/17 16:23 Albumin 4.0 g/dL (3.5-5.0) 04/10/17 16:23 Globulin 3.5 gm/dL (2.2-3.9) 04/10/17 16:23 Albumin/Globulin Ratio 1.2 (1.0-2.1) 04/10/17 16: Lipase 44 U/L (23-300) 04/10/17 16:23 Urine Color Yellow (YELLOW) 04/10/17 16:23 Urine Clarity Slighty-cloudy (Clear) 04/10/17 16:23 Urine pH 8.0 (5.0-8.0) 04/10/17 16:23 Ur Specific [place] 1.019 (1.003-1.030) 04/10/17 16:23 Urine Protein 30 mg/dL (NEGATIVE) 04/10/17 16:23 Urine Glucose (UA) Neg mg/dL (Normal) 04/10/17 16:23 Urine Ketones Trace mg/dL (NEGATIVE) 04/10/17 16:23 Urine Blood Negative (NEGATIVE) 04/10/17 16:23 Urine Nitrate Negative (NEGATIVE) 04/10/17 16:23 Urine Bilirubin Negative (NEGATIVE) 04/10/17 16:23 Urine Urobilinogen 0.2-1.0 mg/dL (0.2-1.0) 04/10/17 16:23 Ur Leukocyte Esterase Neg Leonidas/uL (Negative) 04/10/17 16:23 Urine RBC (Auto) 4 /hpf (0-3) H 04/10/17 16:23 Urine Microscopic WBC 1 /hpf (0-5) 04/10/17 16:23 Ur Squamous Epith Cells < 1 /hpf (0-5) 04/10/17 16:23 Influenza Typ A,B (EIA) Negative for flu a/b (NEGATIVE) 04/10/17 16:23 - Hospital Course Hospital Course: 61 yo ,m, PMHx/o COPD presents to ED c/o 6 non-bloody vomiting started yesterday in the morning associated with 5-6 non-bloody diarrhea and body aches. Patient denies headaches, dizziness, chest pain, SOB, palpitation, abdominal cramps, fever, nasal congestion, sick contact, odd food ingestion, weakness, and fever. Patient had elevated WBC, negative flu test, CXR negative for acute disease process, and CT abdomen showing 2 small hepatic cysts. Patient was given IV fluids and zofran. Patient denies any further episodes of vomiting and diarrhea since yesterday afternoon. Patient breathing well w/ COPD medications. Patient was sitting up and tolerating PO upon examination at bedside. Patient has been seen, examined, and deemed medically fit for discharge to home. Patient counseled to follow up w/ PMD in 1 week. Discharge Exam - Head Exam Head Exam: ATRAUMATIC, NORMAL INSPECTION, NORMOCEPHALIC - Eye Exam Eye Exam: Normal appearance - ENT Exam ENT Exam: Mucous Membranes Moist - Respiratory Exam Respiratory Exam: Rales. absent: Rhonchi, Wheezes, Respiratory Distress - Cardiovascular Exam Cardiovascular Exam: REGULAR RHYTHM - GI/Abdominal Exam GI & Abdominal Exam: Normal Bowel Sounds, Soft. absent: Distended, Guarding, Organomegaly, Rigid, Tenderness - Extremities Exam Extremities exam: normal inspection - Neurological Exam Neurological exam: Alert, Oriented x3 - Skin Skin Exam: Dry, Intact, Normal Color, Warm Discharge Plan - Follow Up Plan Condition: STABLE Disposition: HOME/ ROUTINE Instructions: Gastroenteritis (DC), Gastroenteritis (GEN), COPD (Chronic Obstructive Pulmonary Disease) (DC) Referrals: Ronda Guardado MD [Family Provider] -
[2017-04-11 13:23] LABS: LYMPHOCYTE 4 % (20-50); MONOCYTE 1 % (0-10); NEUTROPHIL 95 % (42-75); PLATELET ESTIMATE NORMAL (NORMAL); TOTAL CELLS COUNTED 100
== END 2017-04-11 12:00 | disposition home or self-care (01) ==
LOC: H.ER 14:29 → H.ERHOLD 23:14 → H.MEDSURG1 04-11 01:01
PROVIDERS: ADMIT Family Medicine Geriatric Medicine; ATTEND Family Medicine Geriatric Medicine
DX: K52.9 Noninfective gastroenteritis and colitis, unspecified (principal); J43.9 Emphysema, unspecified; F17.210 Nicotine dependence, cigarettes, uncomplicated; J45.909 Unspecified asthma, uncomplicated
CPT/HCPCS: 36415; 71046; 74177; 80053; 81003; 82948; 83690; 85025; 85610; 85730; 87389; 87804; 93005; 96374; 99285; G0378; J1650; J2405; J2920; J2930; J7040; Q9967

== ENCOUNTER 2017-04-13 18:05 | Inpatient (IN) | payer SELFPAY ==
[2017-04-13 18:05] VITALS: BMI 20.9
[2017-04-13] MEDS ORDERED: Sodium Chloride 0.9% 1,000 ML IV STA (19:26)
--- NOTE | 2017-04-13 19:33 | ED PDOC ---
HPI:Nausea, Vomiting, Diarrhea Time Seen by Provider: 04/13/17 18:52 Chief Complaint (Nursing): Abdominal Pain Chief Complaint (Provider): Vomiting History Per: Patient History/Exam Limitations: no limitations (2) Onset/Duration Of Symptoms: Days Additional Complaint(s): Pt reports nausea and vomiting since being discharged from [facility] 2 days ago. Denies fever, CP, SOB, abdominal pain, diarrhea. Past Medical History Reviewed: Nursing Documentation, Vital Signs Vital Signs: Last Vital Signs Temp 97.4 F L 04/13/17 18:47 Pulse 76 04/13/17 18:47 Resp 16 04/13/17 18:47 BP 102/72 04/13/17 18:47 Pulse Ox 96 04/13/17 18:47 - Medical History PMH: Asthma, COPD, Emphysema, Pneumonia - Family History Family History: States: Unknown Family Hx - Living Arrangements Living Arrangements: Alone - Home Medications Home Medications: Ambulatory Orders Medication Instructions Recorded Albuterol HFA [Ventolin HFA 90 1 - 2 puff IH Q4H PRN #1 bottle 03/10/17 mcg/actuation (8 g)] Albuterol 0.083% [Albuterol 0.083% 2.5 mg INH Q6H PRN 03/19/17 Inhal Fernanda (2.5 mg/3 ml) UD] Fluticasone/Salmeterol 500/50 1 puff IH Q12 #1 puff 03/23/17 [Advair Diskus 500/50] - Allergies Allergies/Adverse Reactions: Allergies Allergy/AdvReac Type Severity Reaction Status Date / Time No Known Allergies Allergy Verified 04/10/17 15:15 Review of Systems Constitutional: Negative for: Fever, Chills Cardiovascular: Negative for: Chest Pain, Palpitations Respiratory: Negative for: Cough, Shortness of Breath Gastrointestinal: Positive for: Nausea, Vomiting. Negative for: Abdominal Pain , Diarrhea, Hematochezia, Hematemesis Genitourinary Male: Negative for: Dysuria, Hematuria Musculoskeletal: Negative for: Neck Pain, Back Pain Skin: Negative for: Rash, Lesions Neurological: Negative for: Weakness, Numbness, Headache, Dizziness Physical Exam - Reviewed Nursing Documentation Reviewed: Yes Vital Signs Reviewed: Yes - Physical Exam Appears: Positive for: Well, No Acute Distress Skin: Positive for: Normal Color, Warm, Dry Cardiovascular/Chest: Positive for: Regular Rate, Rhythm Respiratory: Positive for: Normal Breath Sounds. Negative for: Rales, Rhonchi, Wheezing Gastrointestinal/Abdominal: Positive for: Normal Exam, Bowel Sounds, Soft. Negative for: Tenderness, Guarding, Rebound Back: Positive for: Normal Inspection Extremity: Positive for: Normal ROM Neurologic/Psych: Positive for: Alert, Oriented - Laboratory Results Result Diagrams: 04/13/17 20:18 04/15/17 06:05 - ECG O2 Sat by Pulse Oximetry: 96 Disposition - Clinical Impression Clinical Impression: Intractable vomiting - Patient ED Disposition Is Patient to be Admitted: Yes - Disposition Disposition Time: 20:54 Condition: STABLE - Pt Status Changed To: Hospital Disposition Of: Observation - POA Present On Arrival: None
[2017-04-13 20:22] LABS: BASO % 0.6 % (0.0-2.0); EOS % 0.7 % (0.0-4.0); HEMOGLOBIN 13.8 g/dL (12.0-18.0); LYMPH # 0.7 K/uL (1.0-4.3); LYMPH % 15.3 % (20.0-40.0); MEAN CELL VOLUME 93.1 fl (80.0-94.0); MEAN CORPUSCULAR HGB CONC 34.4 g/dL (33.0-37.0); MONO # 0.5 K/uL (0.0-0.8); NEUT # 3.2 K/uL (1.8-7.0); NEUT % 71.4 % (50.0-75.0); NRBC % 0.1 % (0.0-0.0); RBC 4.31 Mil/uL (4.40-5.90); WHITE BLOOD COUNT 4.4 K/uL (4.8-10.8)
[2017-04-13 20:41] LABS: ALB/GLOB RATIO 1.2 (1.0-2.1); ALBUMIN 3.7 g/dL (3.5-5.0); ALT/SGPT 26 U/L (21-72); AST/SGOT 24 U/L (17-59); BLOOD UREA NITROGEN 15 mg/dl (9-20); CALCIUM 9.2 mg/dL (8.4-10.2); GFR AFRICAN-AMERICAN > 60; GFR NON-AFRICAN AMERICAN > 60; LIPASE 60 U/L (23-300)
[2017-04-13 20:44] LABS: INR 0.9 (0.9-1.2); PARTIAL THROMBOPLASTIN TIME 32.6 Seconds (25.6-37.1); PROTHROMBIN TIME 9.7 Seconds (9.8-13.1)
[2017-04-13] MEDS ORDERED: Potassium Chloride 20 mEq ER Tab PO STA (20:51)
[2017-04-13] MEDS ORDERED: Potassium Chloride 20 mEq ER Tab PO ONE (21:32)
[2017-04-13 21:50] LABS: URINE BACTERIA RARE (<OCC); URINE BILIRUBIN NEGATIVE (NEGATIVE); URINE BLOOD NEGATIVE (NEGATIVE); URINE CLARITY SLIGHTY-CLOUDY (Clear); URINE COLOR YELLOW (YELLOW); URINE GLUCOSE (UA) NEG (Normal); URINE LEUKOCYTE ESTERASE NEG Leu/uL (Negative); URINE NITRATE NEGATIVE (NEGATIVE); URINE PROTEIN NEGATIVE (NEGATIVE)
--- NOTE | 2017-04-13 23:04 | CP.PCM.HP ---
History of Present Illness - History of Present Illness History of Present Illness: 61 yo ,m, PMHx/o COPD presents to ED c/o persistent nausea and nonbloddy vomiting started thursday night after he was discharged from hospital with similar symptoms . Patient report that he has been vomiting everything he tries to dring or eat.Patient unable to states how many vomiting he has had. Reports stomach discomfort but not abdominal pain. He denies fever, heartburn, abd pain , dysphagia, sick contact, odd food ingestion, herb medications. Patient reports 1 nonbloddy diarrhea yesterday. PMHx: COPD Allergies: NKDA Meds: Albuterol inha. advair PSHx: RT. neck cystectomy Social: ToB-1/2 to1 PPD, howerver reports that has not been smoking almost since new year.ETOH-3-4 beers daily, DRUG-none Home: Lives with roommates Not working now. waiting for disability FH: Mother had some type of lung problem. Not sure if it was cancer or COPD NHC: Dr. Pichardo. last seen 04/03/17 after DC for COPD exacerbation Code Status: Patient is a full code. ED course VS: Normal Labs: CBC 4.4>13.8<322 CMP: K 3.4 Imaging: EKG: Normal Meds: NS 1 l, zofran 4mg IV , Kdur 20 PO Present on Admission - Present on Admission Any Indicators Present on Admission: No History of DVT/PE: No History of Uncontrolled Diabetes: No Review of Systems - Cardiovascular Cardiovascular: As Per HPI - Respiratory Respiratory: As Per HPI - Gastrointestinal Gastrointestinal: Nausea, Vomiting - Genitourinary Genitourinary: As Per HPI Past Patient History - Infectious Disease Hx of Infectious Diseases: None - Tetanus Immunizations Tetanus Immunization: Unknown - Past Medical History & Family History Past Medical History?: Yes - Past Social History Smoking Status: Heavy Smoker > 10 Cigarettes Daily - CARDIAC Hx Cardiac Disorders: No - PULMONARY Hx Asthma: Yes Hx Chronic Obstructive Pulmonary Disease (COPD): Yes Hx Emphysema: Yes Hx Pneumonia: Yes - NEUROLOGICAL Hx Neurological Disorder: No - HEENT Hx HEENT Problems: No - ENDOCRINE/METABOLIC Hx Endocrine Disorders: No - INTEGUMENTARY Hx Dermatological Problems: No - MUSCULOSKELETAL/RHEUMATOLOGICAL Hx Falls: Yes - GASTROINTESTINAL Hx Gastrointestinal Disorders: No - PSYCHIATRIC Hx Psychophysiologic Disorder: No - SURGICAL HISTORY Hx Surgeries: Yes (neck cyst right side) Other/Comment: right neck cyst removal 5 years ago - ANESTHESIA Hx Anesthesia: Yes Hx Anesthesia Reactions: No Hx Malignant Hyperthermia: No Meds Allergies/Adverse Reactions: Allergies Allergy/AdvReac Type Severity Reaction Status Date / Time No Known Allergies Allergy Verified 04/10/17 15:15 Physical Exam - Constitutional Appears: Non-toxic, No Acute Distress - Head Exam Head Exam: ATRAUMATIC, NORMOCEPHALIC - Eye Exam Eye Exam: Normal appearance - ENT Exam ENT Exam: Mucous Membranes Moist - Neck Exam Neck exam: Positive for: Normal Inspection - Respiratory Exam Respiratory Exam: absent: Rales, Rhonchi, Wheezes - Cardiovascular Exam Cardiovascular Exam: REGULAR RHYTHM, +S1, +S2 - GI/Abdominal Exam GI & Abdominal Exam: Normal Bowel Sounds, Soft. absent: Guarding, Rebound, Tenderness - Extremities Exam Extremities exam: Positive for: normal inspection. Negative for: pedal edema - Psychiatric Exam Psychiatric exam: Normal Affect, Normal Mood - Skin Skin Exam: Intact Results - Vital Signs Recent Vital Signs: Last Vital Signs Temp 97.4 F L 04/13/17 22:26 Pulse 76 04/13/17 22:26 Resp 16 04/13/17 22:26 BP 102/72 04/13/17 22:26 Pulse Ox 96 04/13/17 19:34 - Labs Result Diagrams: 04/13/17 20:18 04/13/17 20:18 Labs: Laboratory Results - last 24 hr 04/13/17 04/13/17 04/13/17 20:18 20:18 20:18 WBC 4.4 L D RBC 4.31 L Hgb 13.8 Hct 40.1 MCV 93.1 D MCH 32.0 H MCHC 34.4 RDW 14.0 Plt Count 322 MPV 7.0 L Neut % (Auto) 71.4 Lymph % (Auto) 15.3 L [place] % (Auto) 12.0 H Eos % (Auto) 0.7 Baso % (Auto) 0.6 Neut # (Auto) 3.2 Lymph # (Auto) 0.7 L [place] # (Auto) 0.5 Eos # (Auto) 0.0 Baso # (Auto) 0.0 PT 9.7 L INR 0.9 APTT 32.6 Sodium 139 Potassium 3.4 L Chloride 99 Carbon Dioxide 29 Anion Gap 14 BUN 15 Creatinine 0.5 L Est GFR ( Amer) > 60 Est GFR (Non-Af Amer) > 60 Random Glucose 93 Calcium 9.2 Total Bilirubin 0.6 AST 24 ALT 26 Alkaline Phosphatase 46 Total Protein 7.0 Albumin 3.7 Globulin 3.2 Albumin/Globulin Ratio 1.2 Lipase 60 Urine Color Urine Clarity Urine pH Ur Specific [place] Urine Protein Urine Glucose (UA) Urine Ketones Urine Blood Urine Nitrate Urine Bilirubin Urine Urobilinogen Ur Leukocyte Esterase Urine RBC (Auto) Urine Microscopic WBC Urine Bacteria 04/13/17 21:43 WBC RBC Hgb Hct MCV MCH MCHC RDW Plt Count MPV Neut % (Auto) Lymph % (Auto) [place] % (Auto) Eos % (Auto) Baso % (Auto) Neut # (Auto) Lymph # (Auto) [place] # (Auto) Eos # (Auto) Baso # (Auto) PT INR APTT Sodium Potassium Chloride Carbon Dioxide Anion Gap BUN Creatinine Est GFR ( Amer) Est GFR (Non-Af Amer) Random Glucose Calcium Total Bilirubin AST ALT Alkaline Phosphatase Total Protein Albumin Globulin Albumin/Globulin Ratio Lipase Urine Color Yellow Urine Clarity Slighty-cloudy Urine pH 5.0 Ur Specific [place] 1.025 Urine Protein Negative Urine Glucose (UA) Neg Urine Ketones Trace Urine Blood Negative Urine Nitrate Negative Urine Bilirubin Negative Urine Urobilinogen 2.0 Ur Leukocyte Esterase Neg Urine RBC (Auto) 2 Urine Microscopic WBC 1 Urine Bacteria Rare Assessment & Plan - Assessment and Plan (Free Text) Plan: 61 yo ,m, PMHx/o COPD admitted for Observation for intractable vomiting 1) Gastroenteritis -mot likely viral etiology -to r/o h pylori infection -NPO. IV fluids -s/p NS 1 l,Zofran 4mg IVP -Patient recent discharged from hospital -Stool H pilory - HIV test neg 2) COPD -controlled -last seen in clinic 04/03: PFTs reviewed which demonstrate a restrictive pattern (Decreased FVC 2.33L, FEV1 <55%, and normal FEV1/FVC). Due to extensive smoking history, ddx includes idiopathic pulmonary fibrosis -Duoneb PRN SOB -c/w Advair 3) DVT Prophylaxis - Lovenox 40 mg sc daily
[2017-04-13] MEDS ORDERED: Albuterol-Ipratrop 3 mg / 0.5 (3 ml) UD INH PRN (23:10)
[2017-04-13] MEDS ORDERED: SODIUM CHLORIDE IV SCH (23:15)
[2017-04-13] MEDS ORDERED: POTASSIUM CH IV SCH (23:15)
[2017-04-13] MEDS ORDERED: Sodium Chloride 0.9% 1,000 ML IV SCH (23:15)
[2017-04-13] MEDS ORDERED: D5W IV SCH (23:15)
[2017-04-14] MEDS ORDERED: Iohexol 300 100 ML IJ ONE (08:26)
[2017-04-14] MEDS ORDERED: Sodium Chloride 0.9% 50 ML IV ONE (08:26)
[2017-04-14] MEDS ORDERED: Iohexol 240 (50 ml) PO ONE (08:31)
--- NOTE | 2017-04-14 08:55 | CP.PCM.PN ---
Subjective - Date & Time of Evaluation Date of Evaluation: 04/14/17 Time of Evaluation: 08:45 - Subjective Subjective: Patient seen and examined at bedside this morning. Patient laying comfortably in bed, NAD. Patient denies any more episodes of vomit since before ED arrival yesterday. Patient reports no bowel movement this morning. Patient reports abdominal discomfort but denies pain. Patient denies headaches, dizziness, chest pain, SOB, nausea, vomiting, diarrhea, dysuria, or fever. Objective - Vital Signs/Intake and Output Vital Signs (last 24 hours): Temp Pulse Resp BP Pulse Ox 98.4 F 73 20 110/75 94 L 04/14/17 00:04 04/14/17 00:16 04/14/17 00:16 04/14/17 00:04 04/14/17 00:16 - Medications Medications: Current Medications Acetaminophen (Tylenol 325mg Tab) 650 mg PO Q6 PRN PRN Reason: Fever >100.4 F Albuterol/Ipratropium (Duoneb 3 Mg/0.5 Mg (3 Ml) Ud) 3 ml INH RQ4 PRN PRN Reason: Shortness of Breath Enoxaparin Sodium (Lovenox) 40 mg SC DAILY [facility] PRN Reason: Protocol Sodium Chloride (Sodium Chloride 0.9%) 1,000 mls @ 100 mls/hr IV .Q10H [facility] Stop: 04/14/17 23:15 Iohexol (Omnipaque 240 (50 Ml)) 50 ml PO ONCE ONE Stop: 04/14/17 08:32 Ondansetron HCl (Zofran Inj) 4 mg IVP Q6 PRN PRN Reason: Nausea/Vomiting Fluticasone/Salmeterol (Advair Diskus 500/50) 1 puff IH Q12 [facility] - Labs Labs: 04/13/17 20:18 04/13/17 20:18 PT 9.7 Seconds (9.8-13.1) L 04/13/17 20:18 INR 0.9 (0.9-1.2) 04/13/17 20:18 APTT 32.6 Seconds (25.6-37.1) 04/13/17 20:18 - Constitutional Appears: No Acute Distress - Head Exam Head Exam: ATRAUMATIC, NORMAL INSPECTION, NORMOCEPHALIC - Eye Exam Eye Exam: Normal appearance - ENT Exam ENT Exam: Mucous Membranes Moist - Neck Exam Neck Exam: Full ROM. absent: Tenderness - Respiratory Exam Respiratory Exam: Clear to Ausculation Bilateral. absent: Decreased Breath Sounds, Rales, Rhonchi, Wheezes, Respiratory Distress - Cardiovascular Exam Cardiovascular Exam: REGULAR RHYTHM. absent: Murmur - GI/Abdominal Exam GI & Abdominal Exam: Soft, Normal Bowel Sounds. absent: Distended, Guarding, Rigid, Tenderness - Extremities Exam Extremities Exam: Normal Inspection. absent: Calf Tenderness, Pedal Edema, Tenderness - Neurological Exam Neurological Exam: Alert, Awake, Oriented x3 - Skin Skin Exam: Dry, Intact, Normal Color, Warm Assessment and Plan - Assessment and Plan (Free Text) Assessment: 61 y/o man w/ pmh of COPD admitted for Observation for intractable vomiting Plan: 1) Gastroenteritis - most likely 2/2 viral etiology - r/o h pylori infection - urea breath test - NPO - IVF NS 1 L @ 100 mL/hr - s/p NS 1 L, Zofran 4mg IVP - Patient recent discharged from hospital 04/11/2017 for similar complaints - GI consulted, Dr. Finch - HIV test neg 2) COPD - controlled - last seen in clinic 04/03: PFTs reviewed which demonstrate a restrictive pattern (Decreased FVC 2.33L, FEV1 <55%, and normal FEV1/FVC). Due to extensive smoking history, ddx includes idiopathic pulmonary fibrosis - Duoneb PRN SOB - c/w Advair - patient reports that he went to have Chest CT done but was sent to [facility] which did not accept his insurance and thus did not have the study done 3) DVT Prophylaxis - Lovenox 40 mg sc daily
[2017-04-14] MEDS: Fluticasone-Salmeterol 500-50mcg Diskus IH SCH ×2 (09:38→21:19)
[2017-04-14] MEDS: Enoxaparin 40 mg Syringe SC SCH (09:38)
[2017-04-14] MEDS: Sodium Chloride 0.9% 1,000 ML IV SCH ×2 (12:00→19:30)
--- NOTE | 2017-04-14 16:07 | CP.PCM.CON ---
<Juan Jose Ortiz - Last Filed: 04/14/17 16:40> History of Present Illness - History of Present Illness History of Present Illness: PGY5 GI Fellow Consult Note Patient is a 61yo male with PMHx significant for COPD who presented to the ED with abdominal pain, nausea and vomiting. The patient has presented twice this week to the ED with these symptoms, being D/C 2 days prior to this readmission following a relatively unremarkable work up. In the days since discharge he states that he has again been nauseated, vomiting any PO intake. Also states that for the last 6 months he has noted intermittent dysphagia to both solids and liquids, describing globus sensation which improves spontaneously with time. Does admit to decreased appetite and some weight loss, though this is not evidenced by our EMR which shows a stable weight since December 2013. No odynophagia. He denies any recent travel, sick contacts or antibiotic use outside of the hospital. PMHx: See HPI PSHx: right neck cyst removed FHx: Denies any significant gastrointestinal family history, no history of malignancy Social: Denies tobacco or illicit drug use though EMR notes marijuana use; 3-4 beer per day Endo: No prior endoscopic evaluations 12 system ROS performed and negative except where stated above. Past Patient History - Infectious Disease Hx of Infectious Diseases: None - Tetanus Immunizations Tetanus Immunization: Unknown - Past Medical History & Family History Past Medical History?: Yes - Past Social History Smoking Status: Heavy Smoker > 10 Cigarettes Daily - CARDIAC Hx Cardiac Disorders: No - PULMONARY Hx Asthma: Yes Hx Chronic Obstructive Pulmonary Disease (COPD): Yes Hx Emphysema: Yes Hx Pneumonia: Yes - NEUROLOGICAL Hx Neurological Disorder: No - HEENT Hx HEENT Problems: No - ENDOCRINE/METABOLIC Hx Endocrine Disorders: No - INTEGUMENTARY Hx Dermatological Problems: No - MUSCULOSKELETAL/RHEUMATOLOGICAL Hx Falls: Yes - GASTROINTESTINAL Hx Gastrointestinal Disorders: No - PSYCHIATRIC Hx Psychophysiologic Disorder: No - SURGICAL HISTORY Hx Surgeries: Yes (neck cyst right side) Other/Comment: right neck cyst removal 5 years ago - ANESTHESIA Hx Anesthesia: Yes Hx Anesthesia Reactions: No Hx Malignant Hyperthermia: No Meds Allergies/Adverse Reactions: Allergies Allergy/AdvReac Type Severity Reaction Status Date / Time No Known Allergies Allergy Verified 04/10/17 15:15 - Medications Medications: Current Medications Acetaminophen (Tylenol 325mg Tab) 650 mg PO Q6 PRN PRN Reason: Fever >100.4 F Albuterol/Ipratropium (Duoneb 3 Mg/0.5 Mg (3 Ml) Ud) 3 ml INH RQ4 PRN PRN Reason: Shortness of Breath Enoxaparin Sodium (Lovenox) 40 mg SC DAILY K[facility]THIKEYAN PRN Reason: Protocol Last Admin: 04/14/17 09:38 Dose: 40 mg Sodium Chloride (Sodium Chloride 0.9%) 1,000 mls @ 100 mls/hr IV .Q10H [facility] Stop: 04/14/17 23:15 Ondansetron HCl (Zofran Inj) 4 mg IVP Q6 PRN PRN Reason: Nausea/Vomiting Last Admin: 04/14/17 09:42 Dose: 4 mg Fluticasone/Salmeterol (Advair Diskus 500/50) 1 puff IH Q12 [facility] Last Admin: 04/14/17 09:38 Dose: 1 inh Physical Exam - Constitutional Appears: Non-toxic, No Acute Distress - Eye Exam Eye Exam: EOMI, PERRL - ENT Exam ENT Exam: Mucous Membranes Moist - Respiratory Exam Respiratory Exam: Clear to Auscultation Bilateral. absent: Rales, Rhonchi, Wheezes - Cardiovascular Exam Cardiovascular Exam: RRR, +S1, +S2 - GI/Abdominal Exam GI & Abdominal Exam: Normal Bowel Sounds, Soft. absent: Distended, Firm, Guarding, Organomegaly, Rigid, Tenderness - Extremities Exam Extremities exam: Positive for: normal inspection. Negative for: pedal edema - Neurological Exam Neurological exam: Alert, Oriented x3 - Psychiatric Exam Psychiatric exam: Normal Affect, Normal Mood - Skin Skin Exam: Dry, Warm Results - Vital Signs Recent Vital Signs: Last Vital Signs Temp 97.8 F 04/14/17 09:05 Pulse 68 04/14/17 09:05 Resp 20 04/14/17 09:05 BP 114/77 04/14/17 09:05 Pulse Ox 98 04/14/17 09:05 - Labs Result Diagrams: 04/13/17 20:18 04/13/17 20:18 Labs: Laboratory Results - last 24 hr 04/13/17 04/13/17 04/13/17 20:18 20:18 20:18 WBC 4.4 L D RBC 4.31 L Hgb 13.8 Hct 40.1 MCV 93.1 D MCH 32.0 H MCHC 34.4 RDW 14.0 Plt Count 322 MPV 7.0 L Neut % (Auto) 71.4 Lymph % (Auto) 15.3 L [place] % (Auto) 12.0 H Eos % (Auto) 0.7 Baso % (Auto) 0.6 Neut # (Auto) 3.2 Lymph # (Auto) 0.7 L [place] # (Auto) 0.5 Eos # (Auto) 0.0 Baso # (Auto) 0.0 PT 9.7 L INR 0.9 APTT 32.6 Sodium 139 Potassium 3.4 L Chloride 99 Carbon Dioxide 29 Anion Gap 14 BUN 15 Creatinine 0.5 L Est GFR ( Amer) > 60 Est GFR (Non-Af Amer) > 60 Random Glucose 93 Calcium 9.2 Total Bilirubin 0.6 AST 24 ALT 26 Alkaline Phosphatase 46 Total Protein 7.0 Albumin 3.7 Globulin 3.2 Albumin/Globulin Ratio 1.2 Lipase 60 Urine Color Urine Clarity Urine pH Ur Specific [place] Urine Protein Urine Glucose (UA) Urine Ketones Urine Blood Urine Nitrate Urine Bilirubin Urine Urobilinogen Ur Leukocyte Esterase Urine RBC (Auto) Urine Microscopic WBC Urine Bacteria 04/13/17 21:43 WBC RBC Hgb Hct MCV MCH MCHC RDW Plt Count MPV Neut % (Auto) Lymph % (Auto) [place] % (Auto) Eos % (Auto) Baso % (Auto) Neut # (Auto) Lymph # (Auto) [place] # (Auto) Eos # (Auto) Baso # (Auto) PT INR APTT Sodium Potassium Chloride Carbon Dioxide Anion Gap BUN Creatinine Est GFR ( Amer) Est GFR (Non-Af Amer) Random Glucose Calcium Total Bilirubin AST ALT Alkaline Phosphatase Total Protein Albumin Globulin Albumin/Globulin Ratio Lipase Urine Color Yellow Urine Clarity Slighty-cloudy Urine pH 5.0 Ur Specific [place] 1.025 Urine Protein Negative Urine Glucose (UA) Neg Urine Ketones Trace Urine Blood Negative Urine Nitrate Negative Urine Bilirubin Negative Urine Urobilinogen 2.0 Ur Leukocyte Esterase Neg Urine RBC (Auto) 2 Urine Microscopic WBC 1 Urine Bacteria Rare Assessment & Plan - Assessment and Plan (Free Text) Assessment: Patient is a 61yo male with PMHx significant for COPD who presented to the ED with abdominal pain, nausea and vomiting. -Dysphagia -[place], vomiting, abdominal pain -Incidental discovery of 2 subcentimeter liver lesions on IV contrast CT A/P Plan: -Work up thusfar relatively unremarkable, possible transient viral illness -Check barium swallow study given dysphagia -If unremarkable, liquid diet and advance as tolerated -May ultimately benefit from EGD - R/O stricture, ring, malignancy (given EtOH history), or underlying motility d/o (which would be better diagnosed on manometry) -Liver lesions noted - would check triple phase CT to better characterize lesions -Check hepatitis C serologies - screening given age demographic -Will follow clinical course - Date & Time Date: 04/14/17 Time: 14:30 <Juan Jose Finch MD - Last Filed: 04/14/17 22:04> Meds - Medications Medications: Current Medications Acetaminophen (Tylenol 325mg Tab) 650 mg PO Q6 PRN PRN Reason: Fever >100.4 F Albuterol/Ipratropium (Duoneb 3 Mg/0.5 Mg (3 Ml) Ud) 3 ml INH RQ4 PRN PRN Reason: Shortness of Breath Enoxaparin Sodium (Lovenox) 40 mg SC DAILY K[facility]THIKEYAN PRN Reason: Protocol Last Admin: 04/14/17 09:38 Dose: 40 mg Sodium Chloride (Sodium Chloride 0.9%) 1,000 mls @ 100 mls/hr IV .Q10H [facility] Stop: 04/14/17 23:15 Last Admin: 04/14/17 12:00 Dose: 100 mls/hr Ondansetron HCl (Zofran Inj) 4 mg IVP Q6 PRN PRN Reason: Nausea/Vomiting Last Admin: 04/14/17 09:42 Dose: 4 mg Fluticasone/Salmeterol (Advair Diskus 500/50) 1 puff IH Q12 [facility] Last Admin: 04/14/17 21:19 Dose: 1 inh Results - Vital Signs Recent Vital Signs: Last Vital Signs Temp 98.5 F 04/14/17 16:10 Pulse 65 04/14/17 16:10 Resp 20 04/14/17 16:10 BP 125/86 04/14/17 16:10 Pulse Ox 93 L 04/14/17 16:10 - Labs Result Diagrams: 04/13/17 20:18 04/13/17 20:18 Attending/Attestation - Attestation I have personally seen and examined this patient.: Yes I have fully participated in the care of the patient.: Yes I have reviewed all pertinent clinical information: Yes Notes (Text): 04/14/17 21:54 Patient seen at bedside earlier in the evening today. This is a 61 year old male with PMHx significant for COPD on steroids previously who presented to the ED with abdominal pain, nausea and vomiting. Currently complaining of trouble swallowing both liquids and solids but intermittently. Differential diagnosis is broad but not limited to esophagitis due to [place], and or motility disorder. Will order barium swallow. If negative for diverticulum/ mass lesions / stricture/ rings, will plan EGD on morning. Can start full liquid diet and advance as tolerated. PPI q am daily. Incidental discovery of 2 subcentimeter liver lesions on IV contrast CT A/P 04/14/17 22:01
--- NOTE | 2017-04-14 17:02 | CARD ---
APPROVED REPORT EKG Measurement Heart [id number] <Conclusion> Normal sinus rhythm Normal ECG
[2017-04-15 06:36] LABS: BLOOD UREA NITROGEN 7 mg/dl (9-20); CALCIUM 8.8 mg/dL (8.4-10.2); GFR AFRICAN-AMERICAN > 60; GFR NON-AFRICAN AMERICAN > 60
[2017-04-15] MEDS: Enoxaparin 40 mg Syringe SC SCH (08:23)
[2017-04-15] MEDS: Fluticasone-Salmeterol 500-50mcg Diskus IH SCH ×2 (08:23→20:56)
[2017-04-15] MEDS: Pantoprazole 40 mg EC Tab PO SCH (08:24)
--- NOTE | 2017-04-15 09:07 | CP.PCM.PN ---
Subjective - Date & Time of Evaluation Date of Evaluation: 04/15/17 Time of Evaluation: 07:15 - Subjective Subjective: Patient seen and examined at bedside this morning. Patient laying comfortably in bed, NAD. Patient tolerating liquid diet. Patient denies vomit. Patient reports bowel movement last night, normal, non-bloody. Patient reports abdominal discomfort improved and denies pain. Patient denies headaches, dizziness, chest pain, SOB, nausea, vomiting, diarrhea, dysuria, or fever. Patient seen by GI. Patient to have esophagram. Objective - Vital Signs/Intake and Output Vital Signs (last 24 hours): Temp Pulse Resp BP Pulse Ox 97.9 F 79 20 112/77 98 04/15/17 08:15 04/15/17 08:15 04/15/17 08:15 04/15/17 08:15 04/15/17 08:15 - Medications Medications: Current Medications Acetaminophen (Tylenol 325mg Tab) 650 mg PO Q6 PRN PRN Reason: Fever >100.4 F Albuterol/Ipratropium (Duoneb 3 Mg/0.5 Mg (3 Ml) Ud) 3 ml INH RQ4 PRN PRN Reason: Shortness of Breath Enoxaparin Sodium (Lovenox) 40 mg SC DAILY K[facility]THIKEYAN PRN Reason: Protocol Last Admin: 04/15/17 08:23 Dose: 40 mg Ondansetron HCl (Zofran Inj) 4 mg IVP Q6 PRN PRN Reason: Nausea/Vomiting Last Admin: 04/14/17 09:42 Dose: 4 mg Pantoprazole Sodium (Protonix Ec Tab) 40 mg PO DAILY [facility] Last Admin: 04/15/17 08:24 Dose: 40 mg Fluticasone/Salmeterol (Advair Diskus 500/50) 1 puff IH Q12 [facility] Last Admin: 04/15/17 08:23 Dose: 1 inh - Labs Labs: 04/13/17 20:18 04/15/17 06:05 PT 9.7 Seconds (9.8-13.1) L 04/13/17 20:18 INR 0.9 (0.9-1.2) 04/13/17 20:18 APTT 32.6 Seconds (25.6-37.1) 04/13/17 20:18 - Constitutional Appears: No Acute Distress - Head Exam Head Exam: ATRAUMATIC, NORMAL INSPECTION, NORMOCEPHALIC - Eye Exam Eye Exam: Normal appearance - ENT Exam ENT Exam: Mucous Membranes Moist - Respiratory Exam Respiratory Exam: Clear to Ausculation Bilateral, NORMAL BREATHING PATTERN. absent: Decreased Breath Sounds, Rales, Rhonchi, Wheezes, Respiratory Distress - Cardiovascular Exam Cardiovascular Exam: REGULAR RHYTHM. absent: Tachycardia - GI/Abdominal Exam GI & Abdominal Exam: Soft, Normal Bowel Sounds. absent: Distended, Guarding, Rigid, Tenderness - Extremities Exam Extremities Exam: Normal Inspection. absent: Calf Tenderness, Pedal Edema, Tenderness - Neurological Exam Neurological Exam: Alert, Awake, Oriented x3 - Skin Skin Exam: Dry, Intact, Normal Color, Warm Assessment and Plan - Assessment and Plan (Free Text) Assessment: 61 y/o man w/ pmh of COPD admitted for Observation for intractable vomiting Plan: 1) Gastroenteritis - most likely 2/2 viral etiology - r/o h pylori infection - urea breath test - liquid diet - Zofran 4 mg IVP Q6h prn - GI consulted, Dr. Finch, recommendations appreciated - HIV test neg 2) Dysphagia - GI consult, recommendations appreciated - esophagram today - possible EGD tomorrow 3) COPD - controlled - last seen in clinic 04/03: PFTs reviewed which demonstrate a restrictive pattern (Decreased FVC 2.33L, FEV1 <55%, and normal FEV1/FVC). Due to extensive smoking history, ddx includes idiopathic pulmonary fibrosis - Duoneb PRN SOB - c/w Advair - patient reports that he went to have Chest CT done but was sent to [facility] which did not accept his insurance and thus did not have the study done 4) DVT Prophylaxis - Lovenox 40 mg sc daily
--- NOTE | 2017-04-15 10:26 | CP.PCM.PN ---
<TraeCarly - Last Filed: 04/15/17 10:34> Subjective - Date & Time of Evaluation Date of Evaluation: 04/15/17 Time of Evaluation: 10:00 - Subjective Subjective: GI Fellow PGY 4 Progress Note Pt seen and evaluated at bedside, pt doing well but reports having dysphagia last night with full liquids but was able to eat food tray. Pt is currently NPO for barium swallow which is pending. Discussed with patient about EGD tomorrow and pt is agreeable, consent signed and in chart. ROS: A 12pt ROS was negative except as above. Objective - Vital Signs/Intake and Output Vital Signs (last 24 hours): Temp Pulse Resp BP Pulse Ox 97.9 F 79 20 112/77 98 04/15/17 08:15 04/15/17 08:15 04/15/17 08:15 04/15/17 08:15 04/15/17 08:15 - Medications Medications: Current Medications Acetaminophen (Tylenol 325mg Tab) 650 mg PO Q6 PRN PRN Reason: Fever >100.4 F Albuterol/Ipratropium (Duoneb 3 Mg/0.5 Mg (3 Ml) Ud) 3 ml INH RQ4 PRN PRN Reason: Shortness of Breath Enoxaparin Sodium (Lovenox) 40 mg SC DAILY [facility] PRN Reason: Protocol Last Admin: 04/15/17 08:23 Dose: 40 mg Ondansetron HCl (Zofran Inj) 4 mg IVP Q6 PRN PRN Reason: Nausea/Vomiting Last Admin: 04/14/17 09:42 Dose: 4 mg Pantoprazole Sodium (Protonix Ec Tab) 40 mg PO DAILY [facility] Last Admin: 04/15/17 08:24 Dose: 40 mg Fluticasone/Salmeterol (Advair Diskus 500/50) 1 puff IH Q12 [facility] Last Admin: 04/15/17 08:23 Dose: 1 inh - Labs Labs: 04/13/17 20:18 04/15/17 06:05 PT 9.7 Seconds (9.8-13.1) L 04/13/17 20:18 INR 0.9 (0.9-1.2) 04/13/17 20:18 APTT 32.6 Seconds (25.6-37.1) 04/13/17 20:18 - Constitutional Appears: Non-toxic, No Acute Distress - Head Exam Head Exam: ATRAUMATIC, NORMAL INSPECTION, NORMOCEPHALIC - Eye Exam Eye Exam: EOMI Pupil Exam: PERRL - ENT Exam ENT Exam: Mucous Membranes Moist, Normal Exam - Neck Exam Neck Exam: Full ROM, Normal Inspection - Respiratory Exam Respiratory Exam: Clear to Ausculation Bilateral, NORMAL BREATHING PATTERN - Cardiovascular Exam Cardiovascular Exam: REGULAR RHYTHM, RRR - GI/Abdominal Exam GI & Abdominal Exam: Soft, Normal Bowel Sounds. absent: Distended, Guarding, Tenderness - Rectal Exam Rectal Exam: Deferred - Extremities Exam Extremities Exam: Full ROM, Normal Inspection - Neurological Exam Neurological Exam: Alert, Awake, Oriented x3 - Psychiatric Exam Psychiatric exam: Normal Affect, Normal Mood - Skin Skin Exam: Dry, Intact, Normal Color, Warm Assessment and Plan - Assessment and Plan (Free Text) Assessment: This is a 61yo male with PMHx significant for COPD who presented with complaints of abdominal pain, nausea and vomiting. 1. Dysphagia 2. Nausea, vomiting, abdominal pain-resolved 3. Incidental liver lesions-2 subcentimeter Plan: -Continue supportive care with pain control and anti-emetics -Barium swallow pending today for given dysphagia -Continue liquid diet and advance as tolerated -Continue PPI po daily -Plan for EGD tomorrow, NPO after midnight, consent signed and in chart, pt scheduled for 7:30am. -Liver lesions noted, LFTs wnl, hepatitis C serologies pending -Will follow closely <Juan Jose Finch MD - Last Filed: 04/15/17 12:06> Objective - Vital Signs/Intake and Output Vital Signs (last 24 hours): Temp Pulse Resp BP Pulse Ox 97.9 F 79 20 112/77 98 04/15/17 08:15 04/15/17 08:15 04/15/17 08:15 04/15/17 08:15 04/15/17 08:15 - Medications Medications: Current Medications Acetaminophen (Tylenol 325mg Tab) 650 mg PO Q6 PRN PRN Reason: Fever >100.4 F Albuterol/Ipratropium (Duoneb 3 Mg/0.5 Mg (3 Ml) Ud) 3 ml INH RQ4 PRN PRN Reason: Shortness of Breath Enoxaparin Sodium (Lovenox) 40 mg SC DAILY [facility] PRN Reason: Protocol Last Admin: 04/15/17 08:23 Dose: 40 mg Ondansetron HCl (Zofran Inj) 4 mg IVP Q6 PRN PRN Reason: Nausea/Vomiting Last Admin: 04/14/17 09:42 Dose: 4 mg Pantoprazole Sodium (Protonix Ec Tab) 40 mg PO DAILY [facility] Last Admin: 04/15/17 08:24 Dose: 40 mg Fluticasone/Salmeterol (Advair Diskus 500/50) 1 puff IH Q12 [facility] Last Admin: 04/15/17 08:23 Dose: 1 inh - Labs Labs: 04/13/17 20:18 04/15/17 06:05 PT 9.7 Seconds (9.8-13.1) L 04/13/17 20:18 INR 0.9 (0.9-1.2) 04/13/17 20:18 APTT 32.6 Seconds (25.6-37.1) 04/13/17 20:18 Attending/Attestation - Attestation I have personally seen and examined this patient.: Yes I have fully participated in the care of the patient.: Yes I have reviewed all pertinent clinical information, including history, physical exam and plan: Yes Notes (Text): 04/15/17 12:00 Patient seen at bedside earlier in the morning today. This is a 61 year old male with PMHx significant for COPD on steroids previously who presented to the ED with abdominal pain, nausea and vomiting. Currently complaining of trouble swallowing both liquids and solids but intermittently. Differential diagnosis is broad but not limited to esophagitis due to stanley, and or motility disorder. Barium swallow is pending. If negative for diverticulum/ mass lesions / stricture/ rings, will plan EGD on morning. Can start full liquid diet and advance as tolerated. PPI q am daily. Incidental discovery of 2 subcentimeter liver lesions on IV contrast CT A/P. NPO past midnight. Discussed with the attending
[2017-04-15 13:13] LABS: HEPATITIS C ANTIBODY NEGATIVE (NEGATIVE)
[2017-04-15] MEDS ORDERED: Barium Sulfate Susp 0.1% w/v, 0.1% w/w 450 mL Bottle PO ONE (13:39)
--- NOTE | 2017-04-15 15:13 | RAD ---
HISTORY: Dysphagia. -implants picking to the patient this dysphasia is mostly upper -patient points to his neck Past smoking history. 3 to 4 beers a day. Difficulty swallowing sensation mostly s; no intense pain according to the patient COMPARISON: None. TECHNIQUE: Single-contrast esophagram was performed. With the air swallowed, a air-contrast release study also achieved FINDINGS: Patient tolerated procedure well. ESOPHAGUS: Esophageal mucosa appeared preserved. No evidence of stricture or mass lesion. The vallecula and piriform sinuses appear grossly unremarkable. No tracheal penetration or aspiration appreciated. Prominent anterior cervical spondylosis noted Sliding hiatal hernia suggested. Intermittent tertiary wave contractions consistent with presbyesophagus HIATAL HERNIA: Present GASTROESOPHAGEAL REFLUX: Not demonstrated. -at this setting OTHER FINDINGS: None. IMPRESSION: No stricture or gross obstructing mass lesion. Exam is limited regarding subtle mucosal abnormalities. No gross mucosal or submucosal abnormalities appreciated. Sliding hiatal hernia Anterior cervical prominent spondylosis -this can be seen with a cervical dysplasia presentation. Correlate clinically. No tracheal/ bronchial aspiration appreciated
[2017-04-16 06:35] LABS: HEMOGLOBIN 13.6 g/dL (12.0-18.0); MEAN CELL VOLUME 94.4 fl (80.0-94.0); MEAN CORPUSCULAR HEMOGLOBIN 31.1 pg (27.0-31.0); RBC 4.37 Mil/uL (4.40-5.90); RED CELL DISTRIBUTION WIDTH 13.5 % (11.5-14.5); WHITE BLOOD COUNT 5.7 K/uL (4.8-10.8)
--- NOTE | 2017-04-16 07:15 | CP.PCM.PN ---
Subjective - Date & Time of Evaluation Date of Evaluation: 04/16/17 Time of Evaluation: 07:00 - Subjective Subjective: Patient seen and examined at bedside this morning. Patient laying comfortably in bed, NAD. Patient NPO for EGD. Patient denies vomit. Patient reports normal, non-bloody bowel movement. Patient reports abdominal discomfort improved and denies pain. Patient denies headaches, dizziness, chest pain, SOB , nausea, vomiting, diarrhea, dysuria, or fever. Objective - Vital Signs/Intake and Output Vital Signs (last 24 hours): Temp Pulse Resp BP Pulse Ox 97.8 F 65 19 109/74 96 04/16/17 06:53 04/16/17 06:53 04/16/17 06:53 04/16/17 06:53 04/16/17 06:53 - Medications Medications: Current Medications Acetaminophen (Tylenol 325mg Tab) 650 mg PO Q6 PRN PRN Reason: Fever >100.4 F Albuterol/Ipratropium (Duoneb 3 Mg/0.5 Mg (3 Ml) Ud) 3 ml INH RQ4 PRN PRN Reason: Shortness of Breath Enoxaparin Sodium (Lovenox) 40 mg SC DAILY [facility] PRN Reason: Protocol Last Admin: 04/15/17 08:23 Dose: 40 mg Ondansetron HCl (Zofran Inj) 4 mg IVP Q6 PRN PRN Reason: Nausea/Vomiting Last Admin: 04/14/17 09:42 Dose: 4 mg Pantoprazole Sodium (Protonix Ec Tab) 40 mg PO DAILY [facility] Last Admin: 04/15/17 08:24 Dose: 40 mg Fluticasone/Salmeterol (Advair Diskus 500/50) 1 puff IH Q12 [facility] Last Admin: 04/15/17 20:56 Dose: 1 inh - Labs Labs: 04/16/17 06:10 04/15/17 06:05 PT 9.7 Seconds (9.8-13.1) L 04/13/17 20:18 INR 0.9 (0.9-1.2) 04/13/17 20:18 APTT 32.6 Seconds (25.6-37.1) 04/13/17 20:18 - Constitutional Appears: No Acute Distress - Head Exam Head Exam: ATRAUMATIC, NORMAL INSPECTION, NORMOCEPHALIC - Eye Exam Eye Exam: Normal appearance - ENT Exam ENT Exam: Mucous Membranes Moist - Respiratory Exam Respiratory Exam: Clear to Ausculation Bilateral, NORMAL BREATHING PATTERN. absent: Decreased Breath Sounds, Rales, Rhonchi, Wheezes, Respiratory Distress - Cardiovascular Exam Cardiovascular Exam: REGULAR RHYTHM. absent: Tachycardia - GI/Abdominal Exam GI & Abdominal Exam: Soft, Normal Bowel Sounds. absent: Distended, Guarding, Rigid, Tenderness - Extremities Exam Extremities Exam: Normal Inspection. absent: Calf Tenderness, Pedal Edema, Tenderness - Neurological Exam Neurological Exam: Alert, Awake, Oriented x3 - Skin Skin Exam: Dry, Intact, Normal Color, Warm Assessment and Plan - Assessment and Plan (Free Text) Assessment: 61 y/o man w/ pmh of COPD admitted for intractable vomiting Plan: 1) Gastroenteritis - most likely 2/2 viral etiology - regular diet - Zofran 4 mg IVP Q6h prn - GI consulted, Dr. Finch, recommendations appreciated - HIV test neg - Hep C negative 2) Dysphagia - GI consult, recommendations appreciated - esophagram: sliding hiatal hernia, no stricture, no mass, no gross mucosal/ submucosal abnormalities - EGD: normal esophagus, hypertonic lower esophageal sphincter, non-bleeding erosive gastropathy, normal 2nd part of the duodenum, biopsies taken 3) COPD - controlled - last seen in clinic 04/03: PFTs reviewed which demonstrate a restrictive pattern (Decreased FVC 2.33L, FEV1 <55%, and normal FEV1/FVC). Due to extensive smoking history, ddx includes idiopathic pulmonary fibrosis - Duoneb PRN SOB - c/w Advair - patient reports that he went to have Chest CT done but was sent to [facility] which did not accept his insurance and thus did not have the study done 4) DVT Prophylaxis - Lovenox 40 mg sc daily
[2017-04-16] MEDS ORDERED: Lactated Ringer's 1,000 ML IV ONE (07:24)
[2017-04-16 07:28] LABS: ALB/GLOB RATIO 1.1 (1.0-2.1); ALBUMIN 3.5 g/dL (3.5-5.0); ALT/SGPT 20 U/L (21-72); AST/SGOT 29 U/L (17-59); BLOOD UREA NITROGEN 5 mg/dl (9-20); GFR AFRICAN-AMERICAN > 60; GFR NON-AFRICAN AMERICAN > 60
[2017-04-16] MEDS ORDERED: Propofol 10 mg/ml Inj (20 ML) ONE (07:43)
[2017-04-16] MEDS ORDERED: Midazolam 2 MG/2 ML VIAL ONE (07:43)
[2017-04-16] MEDS ORDERED: Lidocaine 2% MPF (5 ml) Inj ONE (07:45)
[2017-04-16] MEDS: Pantoprazole 40 mg EC Tab PO SCH (08:43)
[2017-04-16] MEDS: Enoxaparin 40 mg Syringe SC SCH (08:43)
[2017-04-16] MEDS: Fluticasone-Salmeterol 500-50mcg Diskus IH SCH (08:43)
[2017-04-16 12:28] VITALS: RESP 20
[2017-04-16 16:05] VITALS: BP 91/67; PULSE 71; TEMP 97.9; O2SAT 94
--- NOTE | 2017-04-16 16:52 | CP.PCM.PCO ---
Assessment & Plan - Assessment and Plan (Free Text) Assessment: Spoke with Dr Finch Will feed patient patient to follow with GI for bx results
--- NOTE | 2017-04-16 18:25 | CP.PCM.DIS ---
Provider - Provider Date of Admission: 04/14/17 12:00 Attending physician: Cici Avendano MD Consults: Dr Elisa CH Time Spent in preparation of Discharge (in minutes): 30 Hospital Course - Lab Results Lab Results: Most Recent Lab Values WBC 5.7 K/uL (4.8-10.8) 04/16/17 06:10 RBC 4.37 Mil/uL (4.40-5.90) L 04/16/17 06:10 Hgb 13.6 g/dL (12.0-18.0) 04/16/17 06:10 Hct 41.2 % (35.0-51.0) 04/16/17 06:10 MCV 94.4 fl (80.0-94.0) H 04/16/17 06:10 MCH 31.1 pg (27.0-31.0) H 04/16/17 06:10 MCHC 33.0 g/dL (33.0-37.0) 04/16/17 06:10 RDW 13.5 % (11.5-14.5) 04/16/17 06:10 Plt Count 342 K/uL (130-400) 04/16/17 06:10 MPV 7.0 fl (7.2-11.7) L 04/13/17 20:18 Neut % (Auto) 71.4 % (50.0-75.0) 04/13/17 20:18 Lymph % (Auto) 15.3 % (20.0-40.0) L 04/13/17 20:18 [place] % (Auto) 12.0 % (0.0-10.0) H 04/13/17 20:18 Eos % (Auto) 0.7 % (0.0-4.0) 04/13/17 20:18 Baso % (Auto) 0.6 % (0.0-2.0) 04/13/17 20:18 Neut # (Auto) 3.2 K/uL (1.8-7.0) 04/13/17 20:18 Lymph # (Auto) 0.7 K/uL (1.0-4.3) L 04/13/17 20:18 [place] # (Auto) 0.5 K/uL (0.0-0.8) 04/13/17 20:18 Eos # (Auto) 0.0 K/uL (0.0-0.7) 04/13/17 20:18 Baso # (Auto) 0.0 K/uL (0.0-0.2) 04/13/17 20:18 PT 11.0 Seconds (9.8-13.1) 04/16/17 06:10 INR 1.0 (0.9-1.2) 04/16/17 06:10 APTT 32.6 Seconds (25.6-37.1) 04/13/17 20:18 Sodium 139 mmol/l (132-148) 04/16/17 06:10 Potassium 3.9 MMOL/L (3.6-5.0) 04/16/17 06:10 Chloride 100 mmol/L (98-107) 04/16/17 06:10 Carbon Dioxide 32 mmol/L (22-30) H 04/16/17 06:10 Anion Gap 11 (10-20) 04/16/17 06:10 BUN 5 mg/dl (9-20) L 04/16/17 06:10 Creatinine 0.6 mg/dl (0.8-1.5) L 04/16/17 06:10 Est GFR ( Amer) > 60 04/16/17 06:10 Est GFR (Non-Af Amer) > 60 04/16/17 06:10 Random Glucose 99 mg/dL (75-110) 04/16/17 06:10 Calcium 9.0 mg/dL (8.4-10.2) 04/16/17 06:10 Total Bilirubin 0.5 mg/dl (0.2-1.3) 04/16/17 06:10 AST 29 U/L (17-59) 04/16/17 06:10 ALT 20 U/L (21-72) L D 04/16/17 06:10 Alkaline Phosphatase 42 U/L (38-126) 04/16/17 06:10 Total Protein 6.7 G/DL (6.3-8.2) 04/16/17 06:10 Albumin 3.5 g/dL (3.5-5.0) 04/16/17 06:10 Globulin 3.1 gm/dL (2.2-3.9) 04/16/17 06:10 Albumin/Globulin Ratio 1.1 (1.0-2.1) 04/16/17 06:10 Lipase 60 U/L (23-300) 04/13/17 20:18 Urine Color Yellow (YELLOW) 04/13/17 21:43 Urine Clarity Slighty-cloudy (Clear) 04/13/17 21:43 Urine pH 5.0 (5.0-8.0) 04/13/17 21:43 Ur Specific [place] 1.025 (1.003-1.030) 04/13/17 21:43 Urine Protein Negative mg/dL (NEGATIVE) 04/13/17 21:43 Urine Glucose (UA) Neg mg/dL (Normal) 04/13/17 21:43 Urine Ketones Trace mg/dL (NEGATIVE) 04/13/17 21:43 Urine Blood Negative (NEGATIVE) 04/13/17 21:43 Urine Nitrate Negative (NEGATIVE) 04/13/17 21:43 Urine Bilirubin Negative (NEGATIVE) 04/13/17 21:43 Urine Urobilinogen 2.0 mg/dL (0.2-1.0) 04/13/17 21:43 Ur Leukocyte Esterase Neg Leon[place]/uL (Negative) 04/13/17 21:43 Urine RBC (Auto) 2 /hpf (0-3) 04/13/17 21:43 Urine Microscopic WBC 1 /hpf (0-5) 04/13/17 21:43 Urine Bacteria Rare (<OCC) 04/13/17 21:43 Hepatitis C Antibody Negative (NEGATIVE) 04/15/17 06:05 - Hospital Course Hospital Course: 61 y/o man w/ pmh of COPD admitted for intractable vomiting. Patient admitted 2 days prior for similar complaints which resolved overnight. Patient had stable VS, CBC WNL, hypokalemia but otherwise normal CMP. Patient received bolus NS, zofran, and Kdur 20 meq PO. Patient was seen by GI and had esophagram and EGD which showed no acute disease processes. Patient asked to follow up as outpatient w/ GI for further studies. Patients diet advanced from clears to full liquid to regular without issue. The patient has been seen , examined, and deemed medically fit for discharge home. The patient is to follow up w/ [facility] and Dr. Finch for GI Diagnosis 1) Gastroenteritis -resolved - GI consulted, Dr. Finch, recommendations appreciated - HIV test neg - Hep C negative 2) Dysphagia -resolved - GI consult, recommendations appreciated - esophagram: sliding hiatal hernia, no stricture, no mass, no gross mucosal/ submucosal abnormalities - EGD: normal esophagus, hypertonic lower esophageal sphincter, non-bleeding erosive gastropathy, normal 2nd part of the duodenum, biopsies taken 3) COPD - controlled -c/w advair, albuterol PRN Discharge Exam - Head Exam Head Exam: ATRAUMATIC, NORMAL INSPECTION, NORMOCEPHALIC - Eye Exam Eye Exam: Normal appearance - ENT Exam ENT Exam: Normal Exam - Respiratory Exam Respiratory Exam: NORMAL BREATHING PATTERN. absent: Rales, Rhonchi, Wheezes - Cardiovascular Exam Cardiovascular Exam: REGULAR RHYTHM, +S1, +S2 - GI/Abdominal Exam GI & Abdominal Exam: Normal Bowel Sounds, Soft. absent: Guarding, Tenderness - Extremities Exam Extremities exam: normal inspection - Neurological Exam Neurological exam: Alert, Oriented x3 - Psychiatric Exam Psychiatric exam: Normal Affect, Normal Mood - Skin Skin Exam: Intact Discharge Plan - Follow Up Plan Condition: STABLE Disposition: HOME/ ROUTINE Instructions: Acute Nausea and Vomiting (DC), Acute Nausea and Vomiting (GEN) Additional Instructions: Follow up in Clinic in 7 days -Follow up with GI Dr Pérez in 2 weeks. Referrals: Stef RAMIREZ,MD Juan Jose [Medical Doctor] -
== END 2017-04-16 19:39 | disposition home or self-care (01) | DRG 813 ==
LOC: H.ER 18:05 → H.ERHOLD 20:54 → H.MEDSURG1 23:16 → OBSVTOIN 04-14 12:00 → H.MEDSURG1 04-16 13:20
PROVIDERS: ADMIT Family Medicine Geriatric Medicine; ATTEND Family Medicine Geriatric Medicine
PROC: 0DB78ZX Excision of Stomach, Pylorus, Via Natural or Artificial Opening Endoscopic, Diagnostic (ICD-10-PCS; 2017-04-16)
PROC: 0DB98ZX Excision of Duodenum, Via Natural or Artificial Opening Endoscopic, Diagnostic (ICD-10-PCS; principal; 2017-04-16 07:30)
DX: A08.4 Viral intestinal infection, unspecified (principal); E87.6 Hypokalemia; J43.9 Emphysema, unspecified; J84.112 Idiopathic pulmonary fibrosis; R13.10 Dysphagia, unspecified; F12.90 Cannabis use, unspecified, uncomplicated; K76.9 Liver disease, unspecified; F17.210 Nicotine dependence, cigarettes, uncomplicated; Z87.01 Personal history of pneumonia (recurrent)

== ENCOUNTER 2017-05-10 11:26 | Inpatient (IN) | payer SELFPAY ==
[2017-05-10 11:27] VITALS: BMI 20.9
[2017-05-10] MEDS ORDERED: Albuterol-Ipratrop 3 mg / 0.5 (3 ml) UD ONE (12:03)
[2017-05-10] MEDS ORDERED: Albuterol-Ipratrop 3 mg / 0.5 (3 ml) UD INH STA ×3 (12:07→12:08)
--- NOTE | 2017-05-10 12:07 | ED PDOC ---
HPI: SOB/CHF/COPD Time Seen by Provider: 05/10/17 11:53 Chief Complaint (Nursing): Shortness Of Breath Chief Complaint (Provider): Shortness of breath History Per: Patient History/Exam Limitations: no limitations Onset/Duration Of Symptoms: Hrs (5 hours ago) Current Symptoms Are (Timing): Still Present Additional Complaint(s): 61 yo male with a history of COPD, presents to the ED complaining of shortness of breath, onset of 5 hours ago. Patient reports of using his nebulizer pump, but experienced mild relief. He also reports of vomiting once this morning, 4 days ago, and 3 days ago. However, he denies any chest pain or fevers. PCP: Cici Avendnao Past Medical History Reviewed: Historical Data, Nursing Documentation, Vital Signs Vital Signs: Last Vital Signs Temp 98 F 05/10/17 14:32 Pulse 114 H 05/10/17 15:13 Resp 22 05/10/17 16:02 BP 119/76 05/10/17 14:32 Pulse Ox 95 05/10/17 15:13 - Medical History PMH: Asthma, COPD, Emphysema, Pneumonia - Surgical History Surgical History: No Surg Hx Other surgeries: neck cystectomy - Family History Family History: States: Unknown Family Hx - Social History Ex-Smoker (has not smoked in the last 12 months): Yes Alcohol: None Drugs: Denies - Home Medications Home Medications: Ambulatory Orders Medication Instructions Recorded Albuterol HFA [Ventolin HFA 90 2 puff IH [id number] 05/10/17 mcg/actuation (8 g)] Amoxicillin [Amoxil 500 mg Cap] 500 mg PO BID 05/10/17 Clarithromycin [Biaxin Filmtab] 500 mg PO Q12 05/10/17 Fluticasone/Salmeterol 250/50 1 puff IH Q12 05/10/17 [Advair Diskus] Omeprazole 20 mg PO DAILY 05/10/17 - Allergies Allergies/Adverse Reactions: Allergies Allergy/AdvReac Type Severity Reaction Status Date / Time No Known Allergies Allergy Verified 05/10/17 11:40 Review of Systems ROS Statement: Except As Marked, All Systems Reviewed And Found Negative Constitutional: Negative for: Fever Cardiovascular: Negative for: Chest Pain Respiratory: Positive for: Cough, Shortness of Breath, SOB with Exertion (worse with ambulation) Gastrointestinal: Positive for: Vomiting Physical Exam - Reviewed Nursing Documentation Reviewed: Yes (tachypneic) Vital Signs Reviewed: Yes - Physical Exam Appears: Positive for: Uncomfortable Head Exam: Positive for: ATRAUMATIC, NORMAL INSPECTION, NORMOCEPHALIC Skin: Positive for: Normal Color, Warm, DRY Eye Exam: Positive for: EOMI, Normal appearance, PERRL ENT: Positive for: Normal ENT Inspection Neck: Positive for: Normal, Painless ROM Cardiovascular/Chest: Positive for: Tachycardia. Negative for: Murmur Respiratory: Positive for: Decreased Breath Sounds, Accessory Muscle Use, Wheezing, Respiratory Distress, Other Gastrointestinal/Abdominal: Positive for: Soft. Negative for: Tenderness Back: Positive for: Normal Inspection Extremity: Positive for: Normal ROM. Negative for: Pedal Edema, Deformity Neurologic/Psych: Positive for: Alert, Oriented. Negative for: Motor/Sensory Deficits - Laboratory Results Result Diagrams: 05/10/17 12:47 05/10/17 12:47 - ECG ECG: Positive for: Interpreted By Me, Viewed By Me ECG Rhythm: Positive for: Normal QRS, Normal ST Segment, Sinus Tachycardia, ST/ T Changes (nonspecific) Rate: 114 O2 Sat by Pulse Oximetry: 95 (RA) Pulse Ox Interpretation: Normal - Progress Re-evaluation Time: 13:40 Condition: Re-examined, Improving,but remains with symptoms - Critical Care Total Time (In Min): 30 (bipap) Nebulizer Treatments/Peak Flow - Duonebs Number of Bronchodilator Doses given?: 3 - Steroid Treatment Steroid: IV - Clinical Response Clinical Response: Improved Medical Decision Making Medical Decision Making: Time: --12:04 Impression: --Respiratory Distress Differential: COPD Exacerbation vs. Acute Respiratory Distress vs. CHF vs. ACS Plan: --arterial blood gas --ECG --B-type natriuretic --Labs --Troponin I --Chest X-ray One View Reassess --13:15 patient reports of improvement but still signs of respiratory distress and dyspnea Patient is still on bipap. --12:59 PROCEDURE: CHEST RADIOGRAPH, 1 VIEW HISTORY: dyspnea COMPARISON: Comparison made with CT chest 04/23/2017. FINDINGS: LUNGS: No acute infiltrates. The Lung parekh are hyperinflated with centrilobular emphysematous changes upper lobe predominance best seen on prior CT chest. Large bleb or small bulla left anterior lung base also poorly seen. The tiny 4.65 mm nodule right middle lobe not well delineated. PLEURA: No pneumothorax or pleural fluid seen. CARDIOVASCULAR: Normal. OSSEOUS STRUCTURES: No significant abnormalities. VISUALIZED UPPER ABDOMEN: Normal. OTHER FINDINGS: None. IMPRESSION: Hyperinflation. Centrilobular emphysematous changes with upper lobe predominance and small bowl or large bleb left anterior lung base less well seen on this study compared to prior high-resolution CT chest. No acute infiltrates. Scribe Attestation: Documented by Karl Felder acting as a scribe for Liana Walsh MD. Provider Attestation: All medical record entries made by the Scribe were at my direction and personally dictated by me. I have reviewed the chart and agree that the record accurately reflects my personal performance of the history, physical exam, medical decision making, and the department course for this patient. I have also personally directed, reviewed, and agree with the discharge instructions and disposition. Disposition - Clinical Impression Clinical Impression: COPD exacerbation - Patient ED Disposition Is Patient to be Admitted: Yes Discussed With : Beth Nash Doctor Will See Patient In The: ED Counseled Patient/Family Regarding: Studies Performed, Diagnosis - Disposition Disposition Time: 13:49 Condition: FAIR - Pt Status Changed To: Hospital Disposition Of: Inpatient - Admit Certification Admit to Inpatient:: After my assessment, the patient will require hospitalization for at least two midnights. This is because of the severity of symptoms shown, intensity of services needed, and/or the medical risk in this patient being treated as an outpatient. - POA Present On Arrival: None
[2017-05-10 12:17] LABS: ABG ALLEN TEST YES; ARTERIAL BLOOD GAS HCO3 26.8 mmol/L (21-28); ARTERIAL BLOOD GAS HEMOGLOBIN 14.5 g/dL (11.7-17.4); ARTERIAL BLOOD GAS O2 CAPACITY 19.3 mL/dL (16-24); ARTERIAL BLOOD GAS O2 CONTENT 19.3 ML/dL (15-23); ARTERIAL BLOOD GAS O2 SAT 100.1 % (95-98); ARTERIAL BLOOD GAS PCO2 29 mm/Hg (35-45); ARTERIAL BLOOD GAS PH 7.53 (7.35-7.45); ARTERIAL BLOOD GAS PO2 86 mm/Hg (80-100); ARTERIAL BLOOD GAS TCO2 25.1 mmol/L (22-28)
--- NOTE | 2017-05-10 13:00 | RAD ---
PROCEDURE: CHEST RADIOGRAPH, 1 VIEW HISTORY: dyspnea COMPARISON: Comparison made with CT chest 04/23/2017. FINDINGS: LUNGS: No acute infiltrates. The Lung parekh are hyperinflated with centrilobular emphysematous changes upper lobe predominance best seen on prior CT chest. Large bleb or small bulla left anterior lung base also poorly seen. The tiny 4.65 mm nodule right middle lobe not well delineated. PLEURA: No pneumothorax or pleural fluid seen. CARDIOVASCULAR: Normal. OSSEOUS STRUCTURES: No significant abnormalities. VISUALIZED UPPER ABDOMEN: Normal. OTHER FINDINGS: None. IMPRESSION: Hyperinflation. Centrilobular emphysematous changes with upper lobe predominance and small bowl or large bleb left anterior lung base less well seen on this study compared to prior high-resolution CT chest. No acute infiltrates. See above discussion for additional details and findings.
[2017-05-10 13:06] LABS: BASO % 0.1 % (0.0-2.0); EOS # 0.3 K/uL (0.0-0.7); EOS % 2.4 % (0.0-4.0); HEMOGLOBIN 14.9 g/dL (12.0-18.0); LYMPH # 0.4 K/uL (1.0-4.3); LYMPH % 3.6 % (20.0-40.0); MEAN CELL VOLUME 95.1 fl (80.0-94.0); MEAN CORPUSCULAR HEMOGLOBIN 31.6 pg (27.0-31.0); MEAN CORPUSCULAR HGB CONC 33.3 g/dL (33.0-37.0); MEAN PLATELET VOLUME 8.1 fl (7.2-11.7); MONO # 1.2 K/uL (0.0-0.8); MONO % 10.6 % (0.0-10.0); NEUT # 9.1 K/uL (1.8-7.0); NEUT % 83.3 % (50.0-75.0); PLATELET COUNT 267 K/uL (130-400); RED CELL DISTRIBUTION WIDTH 13.7 % (11.5-14.5); WHITE BLOOD COUNT 10.9 K/uL (4.8-10.8)
[2017-05-10 13:12] LABS: BLOOD UREA NITROGEN 8 mg/dl (9-20); CALCIUM 9.1 mg/dL (8.4-10.2); GFR AFRICAN-AMERICAN > 60; GFR NON-AFRICAN AMERICAN > 60
[2017-05-10] MEDS ORDERED: levoFLOXacin 500 mg in D5W 500 MG/100 ML BAG IVPB STA (13:18)
[2017-05-10 13:19] LABS: B-TYPE NATRIURETIC PEPTIDE 195 pg/ml (0-900)
[2017-05-10] MEDS ORDERED: levoFLOXacin 500 mg in D5W 500 MG/100 ML BAG IVPB ONE (14:09)
[2017-05-10 14:58] LABS: EOSINOPHIL 3 % (0-7); LYMPHOCYTE 5 % (20-50); MONOCYTE 12 % (0-10); NEUTROPHIL 80 % (42-75); PLATELET ESTIMATE NORMAL (NORMAL); TOTAL CELLS COUNTED 100
--- NOTE | 2017-05-10 16:07 | CP.PCM.HP ---
History of Present Illness - History of Present Illness History of Present Illness: 61 y/o male with PMHx of COPD, and chronic gastritis presents to ED complaining of cough since yesterday, and increase in his baseline SOB since today morning while he was at rest. Patient states that he brings up a white phlegm every morning, but this is his baseline phlegm. Patient reports that he has been using his rescue albuterol more than usual since yesterday ( 5 times yesterday) , getting temporary relief of his SOB. Patient reported 1 vomit this morning. Denies nasal congestion, rhinorrhea, wheezing, fevers, headaches, N/V, abdominal pain, diarrheas, urinary symptoms. Patient reports a good adherence to his COPD treatment. PMHx: COPD Allergies: NKDA Meds:Albuterol inh, Advair 250/50 BID PSHx: right neck cystectomy Social: Former smoker since age 12, 1 pack/day, Stopped smoking 9 days ago, using nicotine patch daily x 2 weeks now, drinks 2 beers daily, Use Marijuana. Home: Lives with roommates. Not working now. waiting for disability FHx: Mother had some type of lung problem. Not sure if it was cancer or COPD ED course: VS:tachy:114, 95 oxygen sat on room air, BP: 119/74, RR: 24 Placed On BIPAP: IPAP:10, E: 5, FiO2:60 %, VT: 526 Labs CXR Treatment: Duoneb x 3 STAT Solumedrol 125 mg IV once Zofran 4 mg IV once levofloxacin 500 mg IV once Present on Admission - Present on Admission Any Indicators Present on Admission: No History of DVT/PE: No History of Uncontrolled Diabetes: No Urinary Catheter: No Decubitus Ulcer Present: No Review of Systems - Review of Systems All systems: reviewed and no additional remarkable complaints except (as per HPI ) Past Patient History - Infectious Disease Hx of Infectious Diseases: None - Tetanus Immunizations Tetanus Immunization: Unknown - Past Medical History & Family History Past Medical History?: Yes - Past Social History Alcohol: None Drugs: Denies - CARDIAC Hx Cardiac Disorders: No - PULMONARY Hx Asthma: Yes Hx Chronic Obstructive Pulmonary Disease (COPD): Yes Hx Emphysema: Yes Hx Pneumonia: Yes - NEUROLOGICAL Hx Neurological Disorder: No - HEENT Hx HEENT Problems: No - ENDOCRINE/METABOLIC Hx Endocrine Disorders: No - INTEGUMENTARY Hx Dermatological Problems: No - MUSCULOSKELETAL/RHEUMATOLOGICAL Hx Falls: Yes - GASTROINTESTINAL Hx Gastrointestinal Disorders: No - PSYCHIATRIC Hx Psychophysiologic Disorder: No Hx Substance Use: No - SURGICAL HISTORY Hx Surgeries: Yes (neck cyst right side) Other/Comment: right neck cyst removal 5 years ago - ANESTHESIA Hx Anesthesia: Yes Hx Anesthesia Reactions: No Hx Malignant Hyperthermia: No Meds Allergies/Adverse Reactions: Allergies Allergy/AdvReac Type Severity Reaction Status Date / Time No Known Allergies Allergy Verified 05/10/17 11:40 Physical Exam - Constitutional Appears: No Acute Distress - Eye Exam Eye Exam: Normal appearance - ENT Exam ENT Exam: Mucous Membranes Moist - Respiratory Exam Respiratory Exam: Decreased Breath Sounds, Rhonchi (scant, diffuse, and bilateral), NORMAL BREATHING PATTERN. absent: Rales, Wheezes - Cardiovascular Exam Cardiovascular Exam: REGULAR RHYTHM, RRR, +S1, +S2 - GI/Abdominal Exam GI & Abdominal Exam: Normal Bowel Sounds, Soft. absent: Distended, Guarding, Rebound, Rigid, Tenderness - Extremities Exam Extremities exam: Positive for: normal inspection. Negative for: calf tenderness, pedal edema - Neurological Exam Neurological exam: Alert, Oriented x3 - Skin Skin Exam: Dry, Intact, Normal Color Results - Vital Signs Recent Vital Signs: Last Vital Signs Temp 98 F 05/10/17 14:32 Pulse 114 H 05/10/17 15:13 Resp 22 05/10/17 16:02 BP 119/76 05/10/17 14:32 Pulse Ox 95 05/10/17 15:13 - Labs Result Diagrams: 05/10/17 12:47 05/10/17 12:47 Labs: Laboratory Results - last 24 hr 05/10/17 05/10/17 05/10/17 12:06 12:47 12:47 WBC 10.9 H D RBC 4.70 Hgb 14.9 Hct 44.7 MCV 95.1 H MCH 31.6 H MCHC 33.3 RDW 13.7 Plt Count 267 MPV 8.1 Neut % (Auto) 83.3 H Lymph % (Auto) 3.6 L Weakley % (Auto) 10.6 H Eos % (Auto) 2.4 Baso % (Auto) 0.1 Neut # (Auto) 9.1 H Lymph # (Auto) 0.4 L Weakley # (Auto) 1.2 H Eos # (Auto) 0.3 Baso # (Auto) 0.0 Neutrophils % (Manual) 80 H Lymphocytes % (Manual) 5 L Monocytes % (Manual) 12 H Eosinophils % (Manual) 3 Platelet Estimate Normal RBC Morphology Normal pCO2 29 L pO2 86 HCO3 26.8 ABG pH 7.53 H ABG Total CO2 25.1 ABG O2 Saturation 100.1 H ABG O2 Content 19.3 ABG Base Excess 2.5 ABG Hemoglobin 14.5 ABG Carboxyhemoglobin 3.3 H POC ABG HHb (Measured) -0.1 L ABG Methemoglobin 2.2 ABG O2 Capacity 19.3 Otoniel Test Yes A-a O2 Difference 92.0 Hgb O2 Saturation 94.5 L FiO2 30.0 Sodium 140 Potassium 4.1 Chloride 100 Carbon Dioxide 24 Anion Gap 20 BUN 8 L Creatinine 0.5 L Est GFR ( Amer) > 60 Est GFR (Non-Af Amer) > 60 Random Glucose 111 H Calcium 9.1 Troponin I < 0.0120 NT-Pro-B Natriuret Pep 195 Assessment & Plan - Assessment and Plan (Free Text) Assessment: 61 y/o F with PMHx of COPD admitted with SOB, and respiratory distress. Plan: Short of Breath and Respiratory distress -Telemetry unit -Likely 2/2 COPD exacerbation -Cardiorespiratory monitoring -VS Q4 -Duoneb Q4 sarina -solumetrol 60 mg IV -c/w home advair 250/50 BID -on BIPAP -discontinue BIPAP if tolerated, and give oxygen supplementation via NC -repeat CBC in AM -mild leukocytosis on admission 10.9 -do not feel pt will benefit from antibiotics, no increase in sputum, no purulent sputum. Afebrile, no acute infiltrates in CXR. Will f/u CXR and re- assess, will consider abx if needed. -s/p Duoneb x 3 in ER -s/p solumedrol 125 mg IV once in ER -s/p levofloxacin 500 mg IV once -ABG showed no hypercapnea -troponin I x 1 normal, Pro BNP wnl -CXR on admission reported as hyperinflation, no acute infiltrates. -pulmonology consut if needed H/O smoking - Former smoker since age 12, 1 pack/day, Stopped smoking 9 days ago -Using nicotine patch daily x 2 weeks now -c/w nicotine patch DVT prophylaxis Lovenox 40 mg SC - Date & Time Date: 05/10/17 Time: 15:40
[2017-05-10] MEDS: Albuterol-Ipratrop 3 mg / 0.5 (3 ml) UD INH SCH (19:06)
[2017-05-10] MEDS ORDERED: Enoxaparin 40 mg Syringe SC SCH (21:00)
[2017-05-10] MEDS: Fluticasone-Salmeterol 250-50mcg Diskus IH SCH (21:37)
[2017-05-11] MEDS: Albuterol-Ipratrop 3 mg / 0.5 (3 ml) UD INH SCH ×3 (00:40→07:51)
[2017-05-11] MEDS ORDERED: Albuterol 0.083% Inhal Sol (2.5 mg/3 mL) UD INH PRN (00:43)
[2017-05-11 05:16] VITALS: RESP 18
[2017-05-11 05:41] LABS: BASO % 0.6 % (0.0-2.0); EOS # 0.1 K/uL (0.0-0.7); EOS % 1.1 % (0.0-4.0); HEMOGLOBIN 13.6 g/dL (12.0-18.0); LYMPH # 0.8 K/uL (1.0-4.3); LYMPH % 9.9 % (20.0-40.0); MEAN CELL VOLUME 92.8 fl (80.0-94.0); MEAN CORPUSCULAR HEMOGLOBIN 32.1 pg (27.0-31.0); MEAN CORPUSCULAR HGB CONC 34.6 g/dL (33.0-37.0); MEAN PLATELET VOLUME 7.7 fl (7.2-11.7); MONO # 0.7 K/uL (0.0-0.8); MONO % 8.8 % (0.0-10.0); NEUT # 6.3 K/uL (1.8-7.0); NEUT % 79.6 % (50.0-75.0); NRBC % 0.1 % (0.0-0.0); RBC 4.25 Mil/uL (4.40-5.90); RED CELL DISTRIBUTION WIDTH 13.4 % (11.5-14.5); WHITE BLOOD COUNT 7.9 K/uL (4.8-10.8)
[2017-05-11 07:58] VITALS: O2SAT 100
[2017-05-11] MEDS: Fluticasone-Salmeterol 250-50mcg Diskus IH SCH (08:38)
[2017-05-11] MEDS ORDERED: methylPREDNISolone 60 MG in Sodium Chloride 0.9% 50 ML IV SCH (09:00)
[2017-05-11] MEDS ORDERED: levoFLOXacin 500 mg in D5W 500 MG/100 ML BAG IVPB SCH (09:00)
[2017-05-11] MEDS ORDERED: Albuterol-Ipratrop 3 mg / 0.5 (3 ml) UD INH PRN (09:26)
[2017-05-11] MEDS ORDERED: Tiotropium 18 mcg Cap For Inhalation INH SCH (10:15)
[2017-05-11] MEDS ORDERED: Tiotropium 18 mcg Cap For Inhalation INH ONE (11:17)
--- NOTE | 2017-05-11 12:11 | CARD ---
APPROVED REPORT EKG Measurement Heart [id number] <Conclusion> Sinus tachycardia Nonspecific ST abnormality Abnormal ECG
[2017-05-11 12:49] VITALS: BP 104/78; PULSE 86; TEMP 98.3
--- NOTE | 2017-05-11 13:25 | CP.PCM.DIS ---
Provider - Provider Date of Admission: 05/10/17 13:49 Attending physician: Cici Avendano MD Time Spent in preparation of Discharge (in minutes): 45 Hospital Course - Lab Results Lab Results: Most Recent Lab Values WBC 7.9 K/uL (4.8-10.8) 05/11/17 04:25 RBC 4.25 Mil/uL (4.40-5.90) L 05/11/17 04:25 Hgb 13.6 g/dL (12.0-18.0) 05/11/17 04:25 Hct 39.4 % (35.0-51.0) 05/11/17 04:25 MCV 92.8 fl (80.0-94.0) D 05/11/17 04:25 MCH 32.1 pg (27.0-31.0) H 05/11/17 04:25 MCHC 34.6 g/dL (33.0-37.0) 05/11/17 04:25 RDW 13.4 % (11.5-14.5) 05/11/17 04:25 Plt Count 265 K/uL (130-400) 05/11/17 04:25 MPV 7.7 fl (7.2-11.7) 05/11/17 04:25 Neut % (Auto) 79.6 % (50.0-75.0) H 05/11/17 04:25 Lymph % (Auto) 9.9 % (20.0-40.0) L 05/11/17 04:25 Medina % (Auto) 8.8 % (0.0-10.0) 05/11/17 04:25 Eos % (Auto) 1.1 % (0.0-4.0) 05/11/17 04:25 Baso % (Auto) 0.6 % (0.0-2.0) 05/11/17 04:25 Neut # (Auto) 6.3 K/uL (1.8-7.0) 05/11/17 04:25 Lymph # (Auto) 0.8 K/uL (1.0-4.3) L 05/11/17 04:25 [place] # (Auto) 0.7 K/uL (0.0-0.8) 05/11/17 04:25 Eos # (Auto) 0.1 K/uL (0.0-0.7) 05/11/17 04:25 Baso # (Auto) 0.0 K/uL (0.0-0.2) 05/11/17 04:25 Neutrophils % (Manual) 80 % (42-75) H 05/10/17 12:47 Lymphocytes % (Manual) 5 % (20-50) L 05/10/17 12:47 Monocytes % (Manual) 12 % (0-10) H 05/10/17 12:47 Eosinophils % (Manual) 3 % (0-7) 05/10/17 12:47 Platelet Estimate Normal (NORMAL) 05/10/17 12:47 RBC Morphology Normal (NORMAL) 05/10/17 12:47 pCO2 29 mm/Hg (35-45) L 05/10/17 12:06 pO2 86 mm/Hg (80-100) 05/10/17 12:06 HCO3 26.8 mmol/L (21-28) 05/10/17 12:06 ABG pH 7.53 (7.35-7.45) H 05/10/17 12:06 ABG Total CO2 25.1 mmol/L (22-28) 05/10/17 12:06 ABG O2 Saturation 100.1 % (95-98) H 05/10/17 12:06 ABG O2 Content 19.3 ML/dL (15-23) 05/10/17 12:06 ABG Base Excess 2.5 mmol/L (-2.0-3.0) 05/10/17 12:06 ABG Hemoglobin 14.5 g/dL (11.7-17.4) 05/10/17 12:06 ABG Carboxyhemoglobin 3.3 % (0.5-1.5) H 05/10/17 12:06 POC ABG HHb (Measured) -0.1 % (0.0-5.0) L 05/10/17 12:06 ABG Methemoglobin 2.2 % (0.0-3.0) 05/10/17 12:06 ABG O2 Capacity 19.3 mL/dL (16-24) 05/10/17 12:06 Otoniel Test Yes 05/10/17 12:06 A-a O2 Difference 92.0 mm/Hg 05/10/17 12:06 Hgb O2 Saturation 94.5 % (95.0-98.0) L 05/10/17 12:06 FiO2 30.0 % 05/10/17 12:06 Sodium 140 mmol/l (132-148) 05/10/17 12:47 Potassium 4.1 MMOL/L (3.6-5.0) 05/10/17 12:47 Chloride 100 mmol/L (98-107) 05/10/17 12:47 Carbon Dioxide 24 mmol/L (22-30) 05/10/17 12:47 Anion Gap 20 (10-20) 05/10/17 12:47 BUN 8 mg/dl (9-20) L 05/10/17 12:47 Creatinine 0.5 mg/dl (0.8-1.5) L 05/10/17 12:47 Est GFR ( Amer) > 60 05/10/17 12:47 Est GFR (Non-Af Amer) > 60 05/10/17 12:47 Random Glucose 111 mg/dL (75-110) H 05/10/17 12:47 Calcium 9.1 mg/dL (8.4-10.2) 05/10/17 12:47 Troponin I < 0.0120 ng/mL (0.00-0.120) 05/11/17 07:30 NT-Pro-B Natriuret Pep 195 pg/ml (0-900) 05/10/17 12:47 - Hospital Course Hospital Course: Hospital Course: 61 y/o male with PMHx of COPD, and chronic gastritis presents to ED complaining of acute cough and shortness of breath. Pt was managed for acute CHF exacerbation and clinically improved by the next day. No evidence of pnu. Pt's medication was reconciled to include Spiriva. Discharge Medication: Albuterol HFA Q6 Omeprazole 20mg po day Spiriva 18mcg Discharge Instructions: F/U appt scheduled for 05/15 at [facility]. Pt aware. Pt needs to also f/u with GI for past issue with dysphasia, was seen in patient by Dr. Finch in prior admission but never followed up outpatient. Discharge Exam - Head Exam Head Exam: ATRAUMATIC, NORMAL INSPECTION, NORMOCEPHALIC - ENT Exam ENT Exam: Mucous Membranes Moist - Respiratory Exam Respiratory Exam: Rales, Wheezes, NORMAL BREATHING PATTERN. absent: Chest Wall Tenderness, Respiratory Distress - Cardiovascular Exam Cardiovascular Exam: REGULAR RHYTHM, +S1, +S2. absent: Systolic Murmur - GI/Abdominal Exam GI & Abdominal Exam: Normal Bowel Sounds, Soft. absent: Distended, Tenderness - Neurological Exam Neurological exam: Alert, Oriented x3 - Psychiatric Exam Psychiatric exam: Normal Affect Discharge Plan - Discharge Medications Prescriptions: Tiotropium [Spiriva] 18 mcg IH DAILY #1 cap - Follow Up Plan Condition: FAIR Disposition: HOME/ ROUTINE Instructions: Exacerbation of COPD (DC) Additional Instructions: F/U with at [facility] 05/15 11:20am F/U with GI Outpatient, Dr. Finhc Referrals: [facility] [place] [Outside] Juan Jose Finch MD [Medical Doctor] -
== END 2017-05-11 16:27 | disposition home or self-care (01) | DRG 88 ==
LOC: H.ER 11:26 → H.ERHOLD 13:49 → H.TEL 16:10
PROVIDERS: ADMIT Family Medicine Geriatric Medicine; ATTEND Family Medicine Geriatric Medicine
PROC: 5A09357 Assistance with Respiratory Ventilation, Less than 24 Consecutive Hours, Continuous Positive Airway Pressure (ICD-10-PCS; principal; 2017-05-10)
PROC: 3E0F73Z Introduction of Anti-inflammatory into Respiratory Tract, Via Natural or Artificial Opening (ICD-10-PCS; 2017-05-10)
DX: J44.1 Chronic obstructive pulmonary disease with (acute) exacerbation (principal); D72.829 Elevated white blood cell count, unspecified; F12.90 Cannabis use, unspecified, uncomplicated; K29.50 Unspecified chronic gastritis without bleeding; Z87.01 Personal history of pneumonia (recurrent); Z87.891 Personal history of nicotine dependence

== ENCOUNTER 2017-05-18 21:28 | Emergency (ER) | payer SELFPAY ==
[2017-05-18 21:28] VITALS: BMI 20.9
[2017-05-18] MEDS ORDERED: Sodium Chloride 0.9% 1,000 ML IV STA (22:09)
[2017-05-18] MEDS ORDERED: Iohexol 240 (50 ml) PO ONE (22:09)
[2017-05-18] MEDS ORDERED: Iohexol 240 (50 ml) ONE (22:18)
--- NOTE | 2017-05-18 22:23 | ED PDOC ---
HPI: Abdomen Time Seen by Provider: 05/18/17 21:44 Chief Complaint (Nursing): Abdominal Pain Chief Complaint (Provider): abdominal pain History Per: Patient History/Exam Limitations: no limitations Onset/Duration Of Symptoms: Days (2), Waxing/Waning Current Symptoms Are (Timing): Still Present Location Of Pain/Discomfort: Epigastric Quality Of Discomfort: Stabbing, "Pain" Associated Symptoms: Nausea, Vomiting, Diarrhea Additional Complaint(s): 61 y/o male presents with epigastric abdominal pain x 2 days. Associated 2 episodes of nonbilious vomiting, and 3 episodes of nonbloody diarrhea. Denies fever, chest pain, shortness of breath, palpitations, urinary symptoms, recent travel, sick contacts. Past Medical History Reviewed: Historical Data, Nursing Documentation, Vital Signs Vital Signs: Last Vital Signs Temp 98.4 F 05/19/17 01:26 Pulse 82 05/19/17 01:26 Resp 16 05/19/17 01:26 BP 118/81 05/19/17 01:26 Pulse Ox 95 05/19/17 01:26 - Medical History PMH: Asthma, COPD, Emphysema, Pneumonia - Surgical History Surgical History: No Surg Hx - Family History Family History: States: Unknown Family Hx - Home Medications Home Medications: Ambulatory Orders Medication Instructions Recorded Albuterol HFA [Ventolin HFA 90 2 puff IH [id number] 05/10/17 mcg/actuation (8 g)] Omeprazole 20 mg PO DAILY 05/10/17 Tiotropium [Spiriva] 18 mcg IH DAILY #1 cap 05/11/17 Dicyclomine [Bentyl] 20 mg PO TID PRN #15 tab 05/19/17 Famotidine [Pepcid] 20 mg PO BID #10 tab 05/19/17 Ondansetron ODT [Zofran ODT] 4 mg PO Q8 PRN #10 odt 05/19/17 - Allergies Allergies/Adverse Reactions: Allergies Allergy/AdvReac Type Severity Reaction Status Date / Time No Known Allergies Allergy Verified 05/10/17 11:40 Review of Systems ROS Statement: Except As Marked, All Systems Reviewed And Found Negative Gastrointestinal: Positive for: Nausea, Vomiting, Abdominal Pain, Diarrhea Physical Exam - Reviewed Nursing Documentation Reviewed: Yes Vital Signs Reviewed: Yes - Physical Exam Appears: Positive for: Well, Non-toxic, No Acute Distress Head Exam: Positive for: ATRAUMATIC, NORMAL INSPECTION, NORMOCEPHALIC Skin: Positive for: Normal Color Eye Exam: Positive for: Normal appearance ENT: Positive for: Normal ENT Inspection Cardiovascular/Chest: Positive for: Regular Rate, Rhythm Respiratory: Positive for: Normal Breath Sounds Gastrointestinal/Abdominal: Positive for: Bowel Sounds, Soft, Tenderness ( epigastric, RLQ (mild)). Negative for: Distended, Guarding, Rebound Back: Positive for: Normal Inspection Extremity: Positive for: Normal ROM Neurologic/Psych: Positive for: Alert, Oriented - Laboratory Results Result Diagrams: 05/18/17 23:00 05/18/17 22:40 - ECG ECG: Positive for: Viewed By Me (reviewed by ED attending) ECG Rhythm: Positive for: Sinus Rhythm O2 Sat by Pulse Oximetry: 94 - Progress ED Course And Treament: EXAM: CT Abdomen and Pelvis With Intravenous Contrast CLINICAL HISTORY: 61 years old, male; Pain and signs and symptoms; Vomiting and other: Diarrhea; Abdominal pain; Epigastric; Additional info: Abd pain, vomiting, diarrhea TECHNIQUE: Axial computed tomography images of the abdomen and pelvis with intravenous contrast. All CT scans at this facility use one or more dose reduction techniques, viz.: automated exposure control; ma/kV adjustment per patient size (including targeted exams where dose is matched to indication; i.e. head); or iterative reconstruction technique. Coronal and sagittal reformatted images were created and reviewed. CONTRAST: 95 mL of Omnipaque administered intravenously. COMPARISON: CT - ABD PELVIS IV CONTRAST ONLY 2017-04-10 18:15 FINDINGS: Lower thorax: Mild emphysematous changes. Minimal atelectasis/scarring. ABDOMEN: Liver: Fatty infiltration. Few small low-attenuation lesions with benign imaging features, stable. Gallbladder and bile ducts: No calcified stones. No ductal dilation. Pancreas: No ductal dilation. No mass. Spleen: No splenomegaly. Adrenals: No mass. Kidneys and ureters: Probable LEFT renal cyst. No hydronephrosis. Stomach and bowel: No definite mural thickening. No obstruction. Appendix: No findings to suggest acute appendicitis. PELVIS: Bladder: Borderline bladder wall thickening, 4-5 mm. Incomplete distention, limiting evaluation. Reproductive: Unremarkable as visualized. ABDOMEN and PELVIS: Intraperitoneal space: No significant fluid collection. No free air. Bones/joints: Healing left for fracture. Mild degenerative changes of spine. Soft tissues: Unremarkable. Vasculature: Moderate atherosclerotic disease of aorta and iliac arteries. No aneurysm. Lymph nodes: No pathologically enlarged lymph nodes. IMPRESSION: 1. Mild bladder wall thickening versus underdistention. Correlate with urinalysis. 2. Liver lesions. No follow-up is necessary. 3. Incidental/non-acute findings are described above. Patient tolerating PO on re-eval, states he is feeling better. Patient educated on findings, discharged with rx Zofran, Pepcid, Bentyl. Advised fluids, bland diet. Follow up PMD 2-3 days. Return precautions given. Disposition - Clinical Impression Clinical Impression: Gastroenteritis - Patient ED Disposition Is Patient to be Admitted: No Counseled Patient/Family Regarding: Studies Performed, Diagnosis, Need For Followup, Rx Given - Disposition Disposition: Routine/Home Disposition Time: 02:04 Condition: IMPROVED Prescriptions: Dicyclomine [Bentyl] 20 mg PO TID PRN #15 tab PRN Reason: Pain, Mild (1-3) Famotidine [Pepcid] 20 mg PO BID #10 tab Ondansetron ODT [Zofran ODT] 4 mg PO Q8 PRN #10 odt PRN Reason: Nausea/Vomiting Instructions: Gastroenteritis (ED) Forms: [employer] (Ukrainian)
[2017-05-18 22:54] LABS: URINE BACTERIA RARE (<OCC); URINE BILIRUBIN NEGATIVE (NEGATIVE); URINE BLOOD NEGATIVE (NEGATIVE); URINE CLARITY SLIGHTY-CLOUDY (Clear); URINE COLOR YELLOW (YELLOW); URINE GLUCOSE (UA) NEG (Normal); URINE LEUKOCYTE ESTERASE NEG Leu/uL (Negative); URINE PROTEIN NEGATIVE (NEGATIVE); URINE UROBILINOGEN 0.2-1.0 mg/dL (0.2-1.0)
[2017-05-18 22:57] LABS: ALB/GLOB RATIO 1.1 (1.0-2.1); ALBUMIN 3.9 g/dL (3.5-5.0); ALT/SGPT 31 U/L (21-72); AST/SGOT 27 U/L (17-59); BLOOD UREA NITROGEN 6 mg/dl (9-20); CALCIUM 9.4 mg/dL (8.4-10.2); GFR AFRICAN-AMERICAN > 60; GFR NON-AFRICAN AMERICAN > 60; LIPASE 142 U/L (23-300)
[2017-05-18 23:22] LABS: BASO # 0.2 K/uL (0.0-0.2); BASO % 2.9 % (0.0-2.0); EOS # 0.5 K/uL (0.0-0.7); EOS % 5.8 % (0.0-4.0); HEMOGLOBIN 13.9 g/dL (12.0-18.0); LYMPH # 2.6 K/uL (1.0-4.3); LYMPH % 32.3 % (20.0-40.0); MEAN CELL VOLUME 92.7 fl (80.0-94.0); MEAN CORPUSCULAR HEMOGLOBIN 31.6 pg (27.0-31.0); MEAN CORPUSCULAR HGB CONC 34.1 g/dL (33.0-37.0); MEAN PLATELET VOLUME 7.3 fl (7.2-11.7); MONO # 0.8 K/uL (0.0-0.8); MONO % 10.1 % (0.0-10.0); NEUT % 48.9 % (50.0-75.0); NRBC % 0.2 % (0.0-0.0); RBC 4.39 Mil/uL (4.40-5.90); RED CELL DISTRIBUTION WIDTH 13.4 % (11.5-14.5); WHITE BLOOD COUNT 8.1 K/uL (4.8-10.8)
[2017-05-19] MEDS ORDERED: Iohexol 300 100 ML IJ ONE (00:24)
--- NOTE | 2017-05-19 01:12 | CT ---
EXAM: CT Abdomen and Pelvis With Intravenous Contrast CLINICAL HISTORY: 61 years old, male; Pain and signs and symptoms; Vomiting and other: Diarrhea; Abdominal pain; Epigastric; Additional info: Abd pain, vomiting, diarrhea TECHNIQUE: Axial computed tomography images of the abdomen and pelvis with intravenous contrast. All CT scans at this facility use one or more dose reduction techniques, viz.: automated exposure control; ma/kV adjustment per patient size (including targeted exams where dose is matched to indication; i.e. head); or iterative reconstruction technique. Coronal and sagittal reformatted images were created and reviewed. CONTRAST: 95 mL of Omnipaque administered intravenously. COMPARISON: CT - ABD PELVIS IV CONTRAST ONLY 2017-04-10 18:15 FINDINGS: Lower thorax: Mild emphysematous changes. Minimal atelectasis/scarring. ABDOMEN: Liver: Fatty infiltration. Few small low-attenuation lesions with benign imaging features, stable. Gallbladder and bile ducts: No calcified stones. No ductal dilation. Pancreas: No ductal dilation. No mass. Spleen: No splenomegaly. Adrenals: No mass. Kidneys and ureters: Probable LEFT renal cyst. No hydronephrosis. Stomach and bowel: No definite mural thickening. No obstruction. Appendix: No findings to suggest acute appendicitis. PELVIS: Bladder: Borderline bladder wall thickening, 4-5 mm. Incomplete distention, limiting evaluation. Reproductive: Unremarkable as visualized. ABDOMEN and PELVIS: Intraperitoneal space: No significant fluid collection. No free air. Bones/joints: Healing left for fracture. Mild degenerative changes of spine. Soft tissues: Unremarkable. Vasculature: Moderate atherosclerotic disease of aorta and iliac arteries. No aneurysm. Lymph nodes: No pathologically enlarged lymph nodes. IMPRESSION: 1. Mild bladder wall thickening versus underdistention. Correlate with urinalysis. 2. Liver lesions. No follow-up is necessary. 3. Incidental/non-acute findings are described above.
[2017-05-19 01:27] VITALS: BP 118/81; PULSE 82; RESP 16; TEMP 98.4
[2017-05-19 02:05] VITALS: O2SAT 94
--- NOTE | 2017-05-19 12:40 | CARD ---
APPROVED REPORT EKG Measurement Heart [id number] 128P-11 [id number] <Conclusion> Normal sinus rhythm Normal ECG
== END 2017-05-19 02:49 | disposition home or self-care (01) ==
LOC: H.ER 21:28
DX: K52.9 Noninfective gastroenteritis and colitis, unspecified (principal); J44.9 Chronic obstructive pulmonary disease, unspecified; K76.9 Liver disease, unspecified
CPT/HCPCS: 74177; 80053; 81003; 83690; 85025; 93005; 96361; 96374; 96375; 99285; J2405; J7040; Q9966; Q9967

== ENCOUNTER 2017-06-05 15:05 | Emergency (ER) | payer MEDICAID, SELFPAY ==
[2017-06-05 15:05] VITALS: BMI 20.9
[2017-06-05 15:14] VITALS: RESP 18
[2017-06-05 15:24] VITALS: O2SAT 99
[2017-06-05] MEDS ORDERED: Albuterol-Ipratrop 3 mg / 0.5 (3 ml) UD ONE ×3 (15:27→15:32)
[2017-06-05] MEDS ORDERED: Albuterol-Ipratrop 3 mg / 0.5 (3 ml) UD INH STA ×3 (15:31→15:33)
--- NOTE | 2017-06-05 15:33 | ED PDOC ---
HPI: SOB/CHF/COPD Time Seen by Provider: 06/05/17 15:17 Chief Complaint (Nursing): Shortness Of Breath Additional Complaint(s): 61yo M with PMHx COPD, asthma c/o SOB. SOB x2 days, a/w productive cough, yellowish sputum, increased use of albuterol rescue inhaler 3x today, compliant with advair BID. In process of getting LAMA medication by setting up SSI. Smoker , 1 cigarette daily. Denies fever, chills, n/v, chest pain, abd pain. Nighttime awakenings x2 nights. Hospitalizations 4x in past 1 year. Steroid use 2-3x in past 1 year. PCP: [facility] Past Medical History Reviewed: Historical Data, Nursing Documentation, Vital Signs Vital Signs: Last Vital Signs Temp 97.5 F L 06/05/17 15:11 Pulse 70 06/05/17 15:11 Resp 18 06/05/17 15:22 BP 132/85 06/05/17 15:11 Pulse Ox 99 06/05/17 16:14 - Medical History PMH: Asthma, COPD, Emphysema, Pneumonia - Family History Family History: States: Unknown Family Hx - Social History Current smoker - smoking cessation education provided: Yes - Home Medications Home Medications: Ambulatory Orders Medication Instructions Recorded Albuterol HFA [Ventolin HFA 90 2 puff IH [id number] 05/10/17 mcg/actuation (8 g)] Omeprazole 20 mg PO DAILY 05/10/17 Tiotropium [Spiriva] 18 mcg IH DAILY #1 cap 05/11/17 Dicyclomine [Bentyl] 20 mg PO TID PRN #15 tab 05/19/17 Famotidine [Pepcid] 20 mg PO BID #10 tab 05/19/17 Ondansetron ODT [Zofran ODT] 4 mg PO Q8 PRN #10 odt 05/19/17 predniSONE [Prednisone] 40 mg PO DAILY 4 Days #8 tab 06/05/17 - Allergies Allergies/Adverse Reactions: Allergies Allergy/AdvReac Type Severity Reaction Status Date / Time No Known Allergies Allergy Verified 05/10/17 11:40 Review of Systems ROS Statement: Except As Marked, All Systems Reviewed And Found Negative Respiratory: Positive for: Cough, Shortness of Breath Physical Exam - Reviewed Nursing Documentation Reviewed: Yes Vital Signs Reviewed: Yes - Physical Exam Appears: Positive for: Well, Non-toxic Head Exam: Positive for: ATRAUMATIC, NORMAL INSPECTION Skin: Positive for: Warm, Dry Eye Exam: Positive for: Normal appearance ENT: Positive for: Pharyngeal Erythema. Negative for: Tonsillar Exudate Neck: Positive for: Normal, Painless ROM, Supple Cardiovascular/Chest: Positive for: Regular Rate, Rhythm. Negative for: Chest Non Tender Respiratory: Positive for: Decreased Breath Sounds, Accessory Muscle Use (Abd), Wheezing. Negative for: Crackles, Rales, Rhonchi, Respiratory Distress (no SOB with talking) Gastrointestinal/Abdominal: Positive for: Soft Back: Positive for: Normal Inspection Extremity: Positive for: Normal ROM Lymphatic: Negative for: Adenopathy Neurologic/Psych: Positive for: Alert, Oriented - ECG O2 Sat by Pulse Oximetry: 99 Medical Decision Making Medical Decision Makin DDx COPD exacerbation, PNA CXR solumedrol 125mg IV x1 duoneb x3 SaO2 >92% RA reassessment 1612 duoneb completed, SOB improved, CTAB and moving air, no SOB with talking, no accessory muscle use CXR KERWIN d/c home with steroids PO, 4 additional days Disposition - Clinical Impression Clinical Impression: COPD exacerbation - Disposition Referrals: [facility] [place] [Outside] Disposition Time: 17:23 Condition: IMPROVED Prescriptions: predniSONE [Prednisone] 40 mg PO DAILY 4 Days #8 tab Instructions: Chronic Obstructive Pulmonary Disease (COPD), Including Emphysema Forms: [employer] (Divehi)
--- NOTE | 2017-06-05 16:11 | RAD ---
HISTORY: SOB COMPARISON: Chest radiograph dated 05/10/2017 FINDINGS: LUNGS: No active pulmonary disease. PLEURA: No significant pleural effusion identified, no pneumothorax apparent. CARDIOVASCULAR: Atherosclerotic aortic calcifications. Cardiomediastinal silhouette within normal limits. OSSEOUS STRUCTURES: Unchanged. VISUALIZED UPPER ABDOMEN: Normal. OTHER FINDINGS: None. IMPRESSION: No active disease.
[2017-06-05 17:56] VITALS: BP 122/76; PULSE 82; TEMP 98
== END 2017-06-05 17:57 | disposition home or self-care (01) ==
LOC: H.ER 15:05
DX: J44.1 Chronic obstructive pulmonary disease with (acute) exacerbation (principal)
CPT/HCPCS: 71045; 94640; 96374; 99283; J2930

== ENCOUNTER 2017-06-13 11:40 | Observation (INO) | payer SELFPAY ==
[2017-06-13 11:40] VITALS: BMI 20.9
[2017-06-13] MEDS ORDERED: Albuterol 0.083% Inhal Sol (2.5 mg/3 mL) UD ONE (11:44)
[2017-06-13] MEDS ORDERED: Albuterol-Ipratrop 3 mg / 0.5 (3 ml) UD ONE ×2 (11:45→17:38)
[2017-06-13] MEDS ORDERED: Albuterol-Ipratrop 3 mg / 0.5 (3 ml) UD IH STA ×3 (11:55→12:58)
--- NOTE | 2017-06-13 11:59 | ED PDOC ---
HPI: SOB/CHF/COPD Time Seen by Provider: 06/13/17 11:52 Chief Complaint (Nursing): Shortness Of Breath History Per: Patient Onset/Duration Of Symptoms: Other Current Symptoms Are (Timing): Still Present Current Respiratory Medications: See Home Med List Severity: Moderate Associated Symptoms: denies: Fever Recently: Seen In ED Additional Complaint(s): SOB and wheezing assoc with scant non productive cough. Seen in ED 1 week ago with same with worsening over past few days. Denies fever or chest pain. No leg pain or swelling. Past Medical History Vital Signs: Last Vital Signs Temp 97.9 F 06/13/17 11:50 Pulse 124 H 06/13/17 11:50 Resp 25 H 06/13/17 11:50 BP 131/92 H 06/13/17 11:50 Pulse Ox 94 L 06/13/17 11:59 - Medical History PMH: Asthma, COPD, Emphysema, Pneumonia - Family History Family History: States: Unknown Family Hx - Home Medications Home Medications: Ambulatory Orders Medication Instructions Recorded Albuterol HFA [Ventolin HFA 90 2 puff IH [id number] 05/10/17 mcg/actuation (8 g)] Omeprazole 20 mg PO DAILY 05/10/17 Tiotropium [Spiriva] 18 mcg IH DAILY #1 cap 05/11/17 Dicyclomine [Bentyl] 20 mg PO TID PRN #15 tab 05/19/17 Famotidine [Pepcid] 20 mg PO BID #10 tab 05/19/17 Ondansetron ODT [Zofran ODT] 4 mg PO Q8 PRN #10 odt 05/19/17 predniSONE [Prednisone] 40 mg PO DAILY 4 Days #8 tab 06/05/17 - Allergies Allergies/Adverse Reactions: Allergies Allergy/AdvReac Type Severity Reaction Status Date / Time No Known Allergies Allergy Verified 05/10/17 11:40 Review of Systems ROS Statement: Except As Marked, All Systems Reviewed And Found Negative Respiratory: Positive for: Shortness of Breath, Wheezing Physical Exam - Reviewed Nursing Documentation Reviewed: Yes Vital Signs Reviewed: Yes - Physical Exam Appears: Positive for: Non-toxic, Uncomfortable Head Exam: Positive for: ATRAUMATIC, NORMAL INSPECTION, NORMOCEPHALIC Skin: Positive for: Normal Color, Warm, DRY Eye Exam: Positive for: EOMI, Normal appearance, PERRL ENT: Positive for: Normal ENT Inspection Neck: Positive for: Normal, Painless ROM Cardiovascular/Chest: Positive for: Regular Rate, Rhythm Respiratory: Positive for: Rhonchi, Wheezing, Respiratory Distress (Mild) Gastrointestinal/Abdominal: Positive for: Normal Exam, Soft Back: Positive for: Normal Inspection Extremity: Positive for: Normal ROM. Negative for: Calf Tenderness, Swelling Neurologic/Psych: Positive for: Alert, Oriented - Laboratory Results Result Diagrams: 06/13/17 12:22 06/13/17 12:22 - ECG O2 Sat by Pulse Oximetry: 94 - Progress Re-evaluation Time: 13:26 Condition: Re-examined (Improved but still wheezing slightly) Disposition - Clinical Impression Clinical Impression: COPD exacerbation, Failure of outpatient treatment - Patient ED Disposition Is Patient to be Admitted: Yes - Disposition Disposition Time: 13:27 Condition: FAIR Forms: [facility] (Scottish) - Pt Status Changed To: Hospital Disposition Of: Observation - POA Present On Arrival: None
[2017-06-13 12:30] LABS: BASO # 0.1 K/uL (0.0-0.2); BASO % 1.1 % (0.0-2.0); EOS # 1.1 K/uL (0.0-0.7); EOS % 14.4 % (0.0-4.0); HEMOGLOBIN 14.7 g/dL (12.0-18.0); LYMPH # 1.4 K/uL (1.0-4.3); LYMPH % 17.8 % (20.0-40.0); MEAN CELL VOLUME 95.2 fl (80.0-94.0); MEAN CORPUSCULAR HEMOGLOBIN 32.1 pg (27.0-31.0); MEAN CORPUSCULAR HGB CONC 33.7 g/dL (33.0-37.0); MEAN PLATELET VOLUME 7.3 fl (7.2-11.7); MONO # 0.9 K/uL (0.0-0.8); MONO % 11.1 % (0.0-10.0); NEUT # 4.4 K/uL (1.8-7.0); NEUT % 55.6 % (50.0-75.0); NRBC % 0.1 % (0.0-0.0); RBC 4.57 Mil/uL (4.40-5.90); RED CELL DISTRIBUTION WIDTH 14.1 % (11.5-14.5); WHITE BLOOD COUNT 7.8 K/uL (4.8-10.8)
[2017-06-13 12:45] LABS: ALB/GLOB RATIO 1.3 (1.0-2.1); ALBUMIN 4.3 g/dL (3.5-5.0); ALT/SGPT 27 U/L (21-72); AST/SGOT 31 U/L (17-59); BLOOD UREA NITROGEN 7 mg/dl (9-20); CALCIUM 9.4 mg/dL (8.4-10.2); GFR AFRICAN-AMERICAN > 60; GFR NON-AFRICAN AMERICAN > 60
[2017-06-13 12:46] LABS: VENOUS BLOOD GAS BASE EXCESS -0.2 mmol/L (0.0-2.0); VENOUS BLOOD GAS PCO2 44 mmHg (40-60); VENOUS BLOOD GAS PO2 50 mm/Hg (30-55); VENOUS BLOOD PH 7.37 (7.32-7.43)
--- NOTE | 2017-06-13 13:38 | RAD ---
HISTORY: Cough COMPARISON: Comparison chest dated 06/05/[address] scan chest 04/23/2017. FINDINGS: LUNGS: Mild hyperinflation consistent with underlying emphysema. There also appear to be mild bibasilar scarring changes. . PLEURA: No significant pleural effusion identified, no pneumothorax apparent. CARDIOVASCULAR: Normal. OSSEOUS STRUCTURES: No significant abnormalities. VISUALIZED UPPER ABDOMEN: Normal. OTHER FINDINGS: None. IMPRESSION: Emphysematous changes with bibasilar scarring. No focal consolidation.
[2017-06-13] MEDS ORDERED: Albuterol 0.083% Inhal Sol (2.5 mg/3 mL) UD INH PRN (14:23)
--- NOTE | 2017-06-13 14:45 | CP.PCM.HP ---
<Anup Damon - Last Filed: 06/13/17 14:28> History of Present Illness - History of Present Illness History of Present Illness: CC: Dyspnea HPI: 61 y/o man w/ pmh of COPD, and chronic gastritis presents to ED w/ dyspnea. Patient reports SOB for about 1 week but was much worse yesterday. Patient was seen in ED 1 week ago for similar complaints and was discharged w/ PO corticosteroids. The patient reports minimal non-productive non-bloody cough. The patient denies headache, chest pain, abdominal pain, nausea, vomiting, diarrhea, dysuria, or fever. ED course: Vitals: 97.9 F, 102 beats/min, 131/95 mm Hg, resp 20, O2 96% RA CBC: 7.8>14.7/43.5<307 CMP: 140/4.2, 103/21, 7/0.4, glucose 81, AST 31, ALT 27, alk phos 55 VBG: pH 7.37, pCO2 44, HCO3 24.3, pO2 50, lactate 2.1 CXR: emphysematous changes w/ bibasilar scarring, no focal consolidation given Duoneb x 3 STAT given Solumedrol 125 mg IV once PMD: [facility] PMHx: COPD, chronic gastritis Meds: see med list Allergies: NKDA PSHx: right neck cystectomy FHx: Mother had some type of lung problem, unsure if it was cancer or COPD Social: Former smoker since age 12, 1 pack/day, Stopped smoking 1.5 months ago, drinks 2 beers daily, Use Marijuana. Home: Lives with roommates. Not working now , waiting for disability Present on Admission - Present on Admission Any Indicators Present on Admission: No History of DVT/PE: No History of Uncontrolled Diabetes: No Urinary Catheter: No Decubitus Ulcer Present: No Review of Systems - Review of Systems All systems: reviewed and no additional remarkable complaints except - Constitutional Constitutional: absent: Chills, Fever - EENT Eyes: absent: Change in Vision - Cardiovascular Cardiovascular: absent: Chest Pain, Palpitations, Pedal Edema - Respiratory Respiratory: As Per HPI, Cough, Dyspnea - Gastrointestinal Gastrointestinal: absent: Abdominal Pain, Early Satiety, Nausea, Vomiting - Genitourinary Genitourinary: absent: Dysuria - Integumentary Integumentary: absent: Rash - Neurological Neurological: absent: Dizziness, Headaches Past Patient History - Infectious Disease Hx of Infectious Diseases: None - Tetanus Immunizations Tetanus Immunization: Unknown - Past Medical History & Family History Past Medical History?: Yes - Past Social History Smoking Status: Current Some Days Smoker - CARDIAC Hx Cardiac Disorders: No - PULMONARY Hx Asthma: Yes Hx Chronic Obstructive Pulmonary Disease (COPD): Yes Hx Emphysema: Yes Hx Pneumonia: Yes - NEUROLOGICAL Hx Neurological Disorder: No - HEENT Hx HEENT Problems: No - ENDOCRINE/METABOLIC Hx Endocrine Disorders: No - INTEGUMENTARY Hx Dermatological Problems: No - MUSCULOSKELETAL/RHEUMATOLOGICAL Hx Musculoskeletal Disorders: Yes Hx Falls: Yes - GASTROINTESTINAL Hx Gastrointestinal Disorders: No - PSYCHIATRIC Hx Psychophysiologic Disorder: No Hx Substance Use: No - SURGICAL HISTORY Hx Surgeries: Yes (neck cyst right side) Other/Comment: right neck cyst removal 5 years ago - ANESTHESIA Hx Anesthesia: Yes Hx Anesthesia Reactions: No Hx Malignant Hyperthermia: No Meds Allergies/Adverse Reactions: Allergies Allergy/AdvReac Type Severity Reaction Status Date / Time No Known Allergies Allergy Verified 05/10/17 11:40 Physical Exam - Constitutional Appears: No Acute Distress - Head Exam Head Exam: ATRAUMATIC, NORMAL INSPECTION, NORMOCEPHALIC - Eye Exam Eye Exam: Normal appearance - ENT Exam ENT Exam: Mucous Membranes Moist - Neck Exam Additional comments: healed scar from right neck cystectomy - Respiratory Exam Respiratory Exam: Decreased Breath Sounds, Clear to Auscultation Bilateral, Wheezes. absent: Rales, Rhonchi, Respiratory Distress Additional comments: no retraction, speaking in full sentences uninterrupted, mild labored breathing , diffuse expiratory wheeze - Cardiovascular Exam Cardiovascular Exam: Tachycardia, REGULAR RHYTHM Additional comments: s/p duonebs x3 as well as multiple home albuterol pumps prior to ED arrival - GI/Abdominal Exam GI & Abdominal Exam: Normal Bowel Sounds, Soft. absent: Distended, Tenderness - Extremities Exam Extremities exam: Negative for: calf tenderness, pedal edema, tenderness - Neurological Exam Neurological exam: Alert, Oriented x3 - Skin Skin Exam: Dry, Intact, Normal Color, Warm Results - Vital Signs Recent Vital Signs: Last Vital Signs Temp 97.9 F 06/13/17 11:50 Pulse 102 H 06/13/17 14:00 Resp 20 06/13/17 14:00 BP 131/95 H 06/13/17 14:00 Pulse Ox 96 06/13/17 14:00 - Labs Result Diagrams: 06/13/17 12:22 06/13/17 12:22 Labs: Laboratory Results - last 24 hr 06/13/17 06/13/17 06/13/17 12:22 12:22 12:38 WBC 7.8 RBC 4.57 Hgb 14.7 Hct 43.5 MCV 95.2 H D MCH 32.1 H MCHC 33.7 RDW 14.1 Plt Count 307 MPV 7.3 Neut % (Auto) 55.6 Lymph % (Auto) 17.8 L Butler % (Auto) 11.1 H Eos % (Auto) 14.4 H Baso % (Auto) 1.1 Neut # (Auto) 4.4 Lymph # (Auto) 1.4 Butler # (Auto) 0.9 H Eos # (Auto) 1.1 H Baso # (Auto) 0.1 pO2 50 VBG pH 7.37 VBG pCO2 44 VBG HCO3 24.3 VBG Total CO2 26.8 VBG O2 Sat (Calc) 88.8 H VBG Base Excess -0.2 L VBG Potassium 4.2 Glucose 80 Lactate 2.1 FiO2 21.0 Sodium 140 136.0 Potassium 4.2 Chloride 103 103.0 Carbon Dioxide 21 L Anion Gap 20 BUN 7 L Creatinine 0.4 L Est GFR ( Amer) > 60 Est GFR (Non-Af Amer) > 60 Random Glucose 81 Calcium 9.4 Total Bilirubin 0.6 AST 31 ALT 27 Alkaline Phosphatase 55 Total Protein 7.8 Albumin 4.3 Globulin 3.4 Albumin/Globulin Ratio 1.3 Venous Blood Potassium 4.2 Assessment & Plan - Assessment and Plan (Free Text) Assessment: 61 y/o man w/ pmh of COPD, and chronic gastritis presents to ED w/ dyspnea. Most likely from COPD exacerbation Plan: Shortness of Breath - Most likely 2/2 COPD exacerbation - failed outpatient treatment - Vitals: 97.9 F, 102 beats/min, 131/95 mm Hg, resp 20, O2 96% RA - CBC: 7.8>14.7/43.5<307 - CMP: 140/4.2, 103/21, 7/0.4, glucose 81, AST 31, ALT 27, alk phos 55 - VBG: pH 7.37, pCO2 44, HCO3 24.3, pO2 50, lactate 2.1 - CXR: emphysematous changes w/ bibasilar scarring, no focal consolidation - given Duoneb x 3 STAT - given Solumedrol 125 mg IV once - Duoneb Q4 sarina - albuterol Q4 prn - solumetrol 60 mg IV Q12 - patient will unlikely benefit from antibiotics; there is no increase in sputum , no purulent sputum, patient is afebrile, no acute infiltrates in CXR. Consider abx if needed. - VBG showed no hypercapnea - consider pulmonology consult if needed - admit to Tele for observation - monitor for acute changes Chronic gastritis - no abdominal complaints currently - c/w pepcid and omeprazole Prophylactic measures DVT: Lovenox 40 mg SC daily <Nina Mooney - Last Filed: 06/14/17 09:04> Results - Vital Signs Recent Vital Signs: Last Vital Signs Temp 97.4 F L 06/14/17 08:20 Pulse 90 06/14/17 08:20 Resp 18 06/14/17 08:20 BP 102/72 06/14/17 08:20 Pulse Ox 98 06/14/17 08:20 - Labs Result Diagrams: 06/13/17 12:22 06/13/17 12:22 Labs: Laboratory Results - last 24 hr 06/13/17 06/13/17 06/13/17 12:22 12:22 12:38 WBC 7.8 RBC 4.57 Hgb 14.7 Hct 43.5 MCV 95.2 H D MCH 32.1 H MCHC 33.7 RDW 14.1 Plt Count 307 MPV 7.3 Neut % (Auto) 55.6 Lymph % (Auto) 17.8 L Butler % (Auto) 11.1 H Eos % (Auto) 14.4 H Baso % (Auto) 1.1 Neut # (Auto) 4.4 Lymph # (Auto) 1.4 Butler # (Auto) 0.9 H Eos # (Auto) 1.1 H Baso # (Auto) 0.1 pO2 50 VBG pH 7.37 VBG pCO2 44 VBG HCO3 24.3 VBG Total CO2 26.8 VBG O2 Sat (Calc) 88.8 H VBG Base Excess -0.2 L VBG Potassium 4.2 Glucose 80 Lactate 2.1 FiO2 21.0 Sodium 140 136.0 Potassium 4.2 Chloride 103 103.0 Carbon Dioxide 21 L Anion Gap 20 BUN 7 L Creatinine 0.4 L Est GFR ( Amer) > 60 Est GFR (Non-Af Amer) > 60 Random Glucose 81 Calcium 9.4 Total Bilirubin 0.6 AST 31 ALT 27 Alkaline Phosphatase 55 Total Protein 7.8 Albumin 4.3 Globulin 3.4 Albumin/Globulin Ratio 1.3 Venous Blood Potassium 4.2 Attending/Attestation - Attestation I have personally seen and examined this patient.: Yes I have fully participated in the care of the patient.: Yes I have reviewed all pertinent clinical information: Yes Notes (Text): 06/14/17 09:04 ATTENDING NOTE - ATTESTATION. PATIENT SEEN AND EXAMINED. CASE DISCUSSED WITH RESIDENT. AGREE WITH FINDINGS AND PLAN.
[2017-06-13] MEDS: Albuterol HFA 90 mcg/actuation (8 g) IH SCH ×2 (15:00→20:05)
[2017-06-13] MEDS ORDERED: MethylPREDNISolone 40 mg Vial ONE (17:38)
[2017-06-13] MEDS: Albuterol-Ipratrop 3 mg / 0.5 (3 ml) UD INH SCH ×2 (18:35→21:17)
[2017-06-14] MEDS ORDERED: methylPREDNISolone 60 MG in Sodium Chloride 0.9% 50 ML IVPB SCH (00:01)
[2017-06-14] MEDS: Albuterol-Ipratrop 3 mg / 0.5 (3 ml) UD INH SCH ×5 (00:01→15:28)
[2017-06-14] MEDS: Albuterol HFA 90 mcg/actuation (8 g) IH SCH ×3 (02:32→17:24)
[2017-06-14 08:21] VITALS: RESP 18
[2017-06-14] MEDS ORDERED: Pantoprazole 20 mg EC Tab PO SCH (09:00)
[2017-06-14] MEDS ORDERED: Enoxaparin 40 mg Syringe SC SCH (09:00)
--- NOTE | 2017-06-14 14:04 | CP.PCM.DIS ---
Addendum entered and electronically signed by David Mayfield MD 06/15/17 06:35: Addendum: d/c home Prednisone 50 mg x4. He received IV solumedrol 60 mg in the am Original Note: <David Mayfield - Last Filed: 06/14/17 14:01> Provider - Provider Date of Admission: 06/13/17 13:25 Attending physician: Cici Avendano MD Time Spent in preparation of Discharge (in minutes): 20 Diagnosis - Discharge Diagnosis (1) COPD exacerbation Status: Acute Hospital Course - Lab Results Lab Results: Most Recent Lab Values WBC 7.8 K/uL (4.8-10.8) 06/13/17 12:22 RBC 4.57 Mil/uL (4.40-5.90) 06/13/17 12:22 Hgb 14.7 g/dL (12.0-18.0) 06/13/17 12:22 Hct 43.5 % (35.0-51.0) 06/13/17 12:22 MCV 95.2 fl (80.0-94.0) H D 06/13/17 12:22 MCH 32.1 pg (27.0-31.0) H 06/13/17 12:22 MCHC 33.7 g/dL (33.0-37.0) 06/13/17 12:22 RDW 14.1 % (11.5-14.5) 06/13/17 12:22 Plt Count 307 K/uL (130-400) 06/13/17 12:22 MPV 7.3 fl (7.2-11.7) 06/13/17 12:22 Neut % (Auto) 55.6 % (50.0-75.0) 06/13/17 12:22 Lymph % (Auto) 17.8 % (20.0-40.0) L 06/13/17 12:22 Posey % (Auto) 11.1 % (0.0-10.0) H 06/13/17 12:22 Eos % (Auto) 14.4 % (0.0-4.0) H 06/13/17 12:22 Baso % (Auto) 1.1 % (0.0-2.0) 06/13/17 12:22 Neut # (Auto) 4.4 K/uL (1.8-7.0) 06/13/17 12:22 Lymph # (Auto) 1.4 K/uL (1.0-4.3) 06/13/17 12:22 Posey # (Auto) 0.9 K/uL (0.0-0.8) H 06/13/17 12:22 Eos # (Auto) 1.1 K/uL (0.0-0.7) H 06/13/17 12:22 Baso # (Auto) 0.1 K/uL (0.0-0.2) 06/13/17 12:22 pO2 50 mm/Hg (30-55) 06/13/17 12:38 VBG pH 7.37 (7.32-7.43) 06/13/17 12:38 VBG pCO2 44 mmHg (40-60) 06/13/17 12:38 VBG HCO3 24.3 mmol/L 06/13/17 12:38 VBG Total CO2 26.8 mmol/L (22-28) 06/13/17 12:38 VBG O2 Sat (Calc) 88.8 % (40-65) H 06/13/17 12:38 VBG Base Excess -0.2 mmol/L (0.0-2.0) L 06/13/17 12:38 VBG Potassium 4.2 mmol/L (3.6-5.2) 06/13/17 12:38 Sodium 136.0 mmol/L (132-148) 06/13/17 12:38 Chloride 103.0 mmol/L (98-107) 06/13/17 12:38 Glucose 80 mg/dL (75-110) 06/13/17 12:38 Lactate 2.1 mmol/L (0.7-2.1) 06/13/17 12:38 FiO2 21.0 % 06/13/17 12:38 Sodium 140 mmol/l (132-148) 06/13/17 12:22 Potassium 4.2 MMOL/L (3.6-5.0) 06/13/17 12:22 Chloride 103 mmol/L (98-107) 06/13/17 12:22 Carbon Dioxide 21 mmol/L (22-30) L 06/13/17 12:22 Anion Gap 20 (10-20) 06/13/17 12:22 BUN 7 mg/dl (9-20) L 06/13/17 12:22 Creatinine 0.4 mg/dl (0.8-1.5) L 06/13/17 12:22 Est GFR ( Amer) > 60 06/13/17 12:22 Est GFR (Non-Af Amer) > 60 06/13/17 12:22 Random Glucose 81 mg/dL (75-110) 06/13/17 12:22 Calcium 9.4 mg/dL (8.4-10.2) 06/13/17 12:22 Total Bilirubin 0.6 mg/dl (0.2-1.3) 06/13/17 12:22 AST 31 U/L (17-59) 06/13/17 12:22 ALT 27 U/L (21-72) 06/13/17 12:22 Alkaline Phosphatase 55 U/L (38-126) 06/13/17 12:22 Total Protein 7.8 G/DL (6.3-8.2) 06/13/17 12:22 Albumin 4.3 g/dL (3.5-5.0) 06/13/17 12:22 Globulin 3.4 gm/dL (2.2-3.9) 06/13/17 12:22 Albumin/Globulin Ratio 1.3 (1.0-2.1) 06/13/17 12:22 Venous Blood Potassium 4.2 mmol/L (3.6-5.2) 06/13/17 12:38 - Hospital Course Hospital Course: 61 y/o man w/ pmh of COPD, and chronic gastritis presented w/ dyspnea. COPD exacerbation. Pt stabilized on duoneb and salumedrol with albuterol. 6 minute walk test with O2 sat >93%. DC home on prednisone 5 mg qDAily x 4 doses. To follow up with Dr. Renee in 2-3 days. Discharge Exam - Head Exam Head Exam: ATRAUMATIC, NORMAL INSPECTION, NORMOCEPHALIC - Eye Exam Eye Exam: EOMI - Respiratory Exam Respiratory Exam: Clear to PA & Lateral, UNREMARKABLE. absent: Wheezes - Cardiovascular Exam Cardiovascular Exam: REGULAR RHYTHM, +S1, +S2 - GI/Abdominal Exam GI & Abdominal Exam: Normal Bowel Sounds, Soft. absent: Tenderness - Neurological Exam Neurological exam: Alert, CN II-XII Intact, Normal Gait, Oriented x3 - Psychiatric Exam Psychiatric exam: Normal Affect, Normal Mood Discharge Plan - Discharge Medications Prescriptions: Albuterol/Ipratropium [Duoneb 3 MG/3 Ml-0.5 MG/3 Ml 3 Ml] 1 packet IH Q6 PRN 30 Days neb PRN Reason: Shortness Of Breath predniSONE [predniSONE Tab] 50 mg PO DAILY 4 Days #4 tab - Follow Up Plan Condition: FAIR Disposition: HOME/ ROUTINE Patient education suggested?: Yes Additional Instructions: Follow up W/ [facility] in 2-3 days if symptoms worsen please return to the ER - Continue taking Prednisone 50 mg x 5 days and continue home meds <Nina Mooney - Last Filed: 06/15/17 07:09> Provider - Provider Date of Admission: 06/13/17 13:25 Attending physician: Cici Avnedano MD [facility] Course - Lab Results Lab Results: Most Recent Lab Values WBC 7.8 K/uL (4.8-10.8) 06/13/17 12:22 RBC 4.57 Mil/uL (4.40-5.90) 06/13/17 12:22 Hgb 14.7 g/dL (12.0-18.0) 06/13/17 12:22 Hct 43.5 % (35.0-51.0) 06/13/17 12:22 MCV 95.2 fl (80.0-94.0) H D 06/13/17 12:22 MCH 32.1 pg (27.0-31.0) H 06/13/17 12:22 MCHC 33.7 g/dL (33.0-37.0) 06/13/17 12:22 RDW 14.1 % (11.5-14.5) 06/13/17 12:22 Plt Count 307 K/uL (130-400) 06/13/17 12:22 MPV 7.3 fl (7.2-11.7) 06/13/17 12:22 Neut % (Auto) 55.6 % (50.0-75.0) 06/13/17 12:22 Lymph % (Auto) 17.8 % (20.0-40.0) L 06/13/17 12:22 Posey % (Auto) 11.1 % (0.0-10.0) H 06/13/17 12:22 Eos % (Auto) 14.4 % (0.0-4.0) H 06/13/17 12:22 Baso % (Auto) 1.1 % (0.0-2.0) 06/13/17 12:22 Neut # (Auto) 4.4 K/uL (1.8-7.0) 06/13/17 12: Lymph # (Auto) 1.4 K/uL (1.0-4.3) 06/13/17 12:22 Posey # (Auto) 0.9 K/uL (0.0-0.8) H 06/13/17 12: Eos # (Auto) 1.1 K/uL (0.0-0.7) H 06/13/17 12: Baso # (Auto) 0.1 K/uL (0.0-0.2) 06/13/17 12:22 pO2 50 mm/Hg (30-55) 06/13/17 12:38 VBG pH 7.37 (7.32-7.43) 06/13/17 12:38 VBG pCO2 44 mmHg (40-60) 06/13/17 12:38 VBG HCO3 24.3 mmol/L 06/13/17 12:38 VBG Total CO2 26.8 mmol/L (22-28) 06/13/17 12:38 VBG O2 Sat (Calc) 88.8 % (40-65) H 06/13/17 12:38 VBG Base Excess -0.2 mmol/L (0.0-2.0) L 06/13/17 12:38 VBG Potassium 4.2 mmol/L (3.6-5.2) 06/13/17 12:38 Sodium 136.0 mmol/L (132-148) 06/13/17 12:38 Chloride 103.0 mmol/L (98-107) 06/13/17 12:38 Glucose 80 mg/dL (75-110) 06/13/17 12:38 Lactate 2.1 mmol/L (0.7-2.1) 06/13/17 12:38 FiO2 21.0 % 06/13/17 12:38 Sodium 140 mmol/l (132-148) 06/13/17 12:22 Potassium 4.2 MMOL/L (3.6-5.0) 06/13/17 12:22 Chloride 103 mmol/L (98-107) 06/13/17 12:22 Carbon Dioxide 21 mmol/L (22-30) L 06/13/17 12:22 Anion Gap 20 (10-20) 06/13/17 12:22 BUN 7 mg/dl (9-20) L 06/13/17 12:22 Creatinine 0.4 mg/dl (0.8-1.5) L 06/13/17 12:22 Est GFR ( Amer) > 60 06/13/17 12:22 Est GFR (Non-Af Amer) > 60 06/13/17 12:22 Random Glucose 81 mg/dL (75-110) 06/13/17 12:22 Calcium 9.4 mg/dL (8.4-10.2) 06/13/17 12:22 Total Bilirubin 0.6 mg/dl (0.2-1.3) 06/13/17 12:22 AST 31 U/L (17-59) 06/13/17 12:22 ALT 27 U/L (21-72) 06/13/17 12:22 Alkaline Phosphatase 55 U/L (38-126) 06/13/17 12:22 Total Protein 7.8 G/DL (6.3-8.2) 06/13/17 12:22 Albumin 4.3 g/dL (3.5-5.0) 06/13/17 12:22 Globulin 3.4 gm/dL (2.2-3.9) 06/13/17 12:22 Albumin/Globulin Ratio 1.3 (1.0-2.1) 06/13/17 12:22 Venous Blood Potassium 4.2 mmol/L (3.6-5.2) 06/13/17 12:38 ED Physician Attestation - Attestation I have personally seen and examined this patient.: Yes I have fully participated in the care of the patient.: Yes I have reviewed all pertinent clinical information, including history, physical exam and plan: Yes Notes (Text): 06/15/17 07:09 ATTENDING NOTE ATTESTATION. PATIENT SEEN AND EXAMINED. CASE DISCUSSED WITH RESIDENT. AGREE WITH FINDINGS AND PLAN.
[2017-06-14 16:04] VITALS: BP 110/76; PULSE 84; TEMP 97.8; O2SAT 98
--- NOTE | 2017-06-15 13:37 | CARD ---
APPROVED REPORT EKG Measurement Heart [id number] <Conclusion> Sinus tachycardia Nonspecific ST abnormality Abnormal ECG
== END 2017-06-14 18:40 | disposition home or self-care (01) ==
LOC: H.ER 11:40 → H.ERHOLD 13:25 → H.TEL 20:53
PROVIDERS: ADMIT Family Medicine Geriatric Medicine; ATTEND Family Medicine Geriatric Medicine
DX: J44.1 Chronic obstructive pulmonary disease with (acute) exacerbation (principal); K29.50 Unspecified chronic gastritis without bleeding; F17.210 Nicotine dependence, cigarettes, uncomplicated; Z87.01 Personal history of pneumonia (recurrent)
CPT/HCPCS: 71045; 80053; 82803; 85025; 93005; 94150; 94640; 96374; 99285; G0378; J1650; J2930

== ENCOUNTER 2017-08-01 14:39 | Observation (INO) | payer MEDICAID, SELFPAY ==
[2017-08-01 14:39] VITALS: BMI 20.9
[2017-08-01] MEDS ORDERED: Albuterol-Ipratrop 3 mg / 0.5 (3 ml) UD INH STA ×3 (15:29→15:36)
[2017-08-01] MEDS ORDERED: Magnesium Sulfate 2 gm/50 ml 2 GM/50 ML BAG IVPB ONE (15:33)
--- NOTE | 2017-08-01 15:39 | ED PDOC ---
HPI: General Adult Time Seen by Provider: 08/01/17 15:25 Chief Complaint (Nursing): Shortness Of Breath Chief Complaint (Provider): shortness of breath History Per: Patient History/Exam Limitations: no limitations Onset/Duration Of Symptoms: Other (today) Have you had recent travel within the past 21 days to any of the following countries: [place], [place], [place] or [place]?: No Current Symptoms Are (Timing): Still Present Severity: Severe Additional Complaint(s): Pt p/w + < 1day onset of severe sob/generalized shaking and dyspnea on exertion ; pt states he used 2 dosages of his nebulizer without improvement prior to arrival and decided to come to ED for further eval; pt states he felt winded ambulating as well; pt states + coughing with mostly clear sputum (non-bloody); pt states yesterday he was doing some yard-work for a friend and believes that it may have trigged his current sob; pt ? wheezing, + felt chills, no sweats, no fever, no cp/palpitations, no abd pain, no n/v, no numbness/tingling; pt + felt dizzy/lightheaded today, no LOC, pt denied rashes/bleeding; pt denied other complaints pt is here for further eval. pt states his current symptoms resembles his recent hospitalization for COPD exacerbation ~ 1 month ago [facility]CP: [facility] smokes few cigs/day Past Medical History Reviewed: Historical Data, Nursing Documentation, Vital Signs Vital Signs: Last Vital Signs Temp 96.0 F L 08/01/17 14:43 Pulse 110 H 08/01/17 14:43 Resp 20 08/01/17 16:44 BP 113/74 08/01/17 14:43 Pulse Ox 92 L 08/01/17 19:15 - Medical History PMH: Asthma, COPD, Emphysema, Pneumonia Denies: Chronic Kidney Disease - Family History Family History: States: Unknown Family Hx - Living Arrangements Living Arrangements: Alone - Social History Current smoker - smoking cessation education provided: Yes Alcohol: None Drugs: Denies - Home Medications Home Medications: Ambulatory Orders Medication Instructions Recorded Albuterol HFA [Ventolin HFA 90 2 puff IH [id number] 08/01/17 mcg/actuation (8 g)] Albuterol/Ipratropium [Duoneb 3 3 ml IH Q6 PRN 08/01/17 MG/3 Ml-0.5 MG/3 Ml 3 Ml] Tiotropium [place] Inhaler 1 inhaler INH DAILY 08/01/17 [Spiriva Inhalation Handihaler Device] - Allergies Allergies/Adverse Reactions: Allergies Allergy/AdvReac Type Severity Reaction Status Date / Time No Known Allergies Allergy Verified 08/01/17 14:43 Review of Systems ROS Statement: Except As Marked, All Systems Reviewed And Found Negative Constitutional: Positive for: Fever, Chills, Sweats. Negative for: Weakness Eyes: Negative for: Pain ENT: Negative for: Ear Pain Cardiovascular: Negative for: Chest Pain Respiratory: Positive for: Cough, Shortness of Breath, SOB with Exertion, Sputum Gastrointestinal: Negative for: Nausea, Vomiting, Abdominal Pain Genitourinary Male: Negative for: Dysuria, Frequency Musculoskeletal: Negative for: Neck Pain, Shoulder Pain, Back Pain Skin: Negative for: Rash Neurological: Positive for: Weakness, Dizziness. Negative for: Confusion, Headache Psych: Negative for: Anxiety, Depression Physical Exam - Reviewed Nursing Documentation Reviewed: Yes Vital Signs Reviewed: Yes (elevated HR/decr pulse ox) - Physical Exam Comments: General: alert/awake, GCS = 15, oriented x 3, resting in bed, uncomfortable, cooperative, interactive; moderate distress due to resp difficulties Head: NC/AT; mild bi-temporal wasting EYE: PERRLA, EOMI, sclera anicteric, no nystagmus, no photophobia; visual field intact b/l Facial: WNL Oral: uvula/tongue are midline, no exudate/lesions, no drooling/stridor, no dysphonia; poor dentitions NECK: intact ROM, no midline tenderness, no nuchal rigidity, no meningeal signs ; no step off Chest: no crepitus/gross deformities, decr breath sounds bibasiliar, + basiliar wheezing noted, no rales/rhonchi; + tachypenia, no accessory muscle use noted Cardiac: +S1, +S2, no m/r/r, no tachycardia Abdominal: +BS, soft/nd/nt, thin patient; no masses/rebound/guarding/rigidity; no montero's sign, no mcburney's point tenderness : n/a Extremities: intact ROM, strength 5/5 grossly intact in all limbs, neurovasc intact b/l; + ambulatory; reflex +2/2; no pitting edema noted b/l BACK: no step off, no midline tenderness, NO crepitus, no gross deformities noted; Intact ROM SKIN: cap refill < 1 sec, no ulcerations, no petechiae, no rashes; no gross pallor NEURO: CNII-XII WNL, no facial asymmetries, no slurr speech, oriented x 3 NIH stroke scale ~ 0 Psych: normal insight, normal affect; follows command with ease - Laboratory Results Result Diagrams: 08/01/17 16:15 08/01/17 16:15 Interpretation Of Abnormal: elevated WBCs - ECG ECG: Positive for: Interpreted By Me, Viewed By Me Interpretation Of ECG: Sinus tachy at 105 bpm, normal axis, no ectopy, no st-t changes, NORMAL EKG otherwise; unchanged compare with old ekg 06/2017 O2 Sat by Pulse Oximetry: 92 Pulse Ox Interpretation: Abnormal - Radiology X-Ray: Viewed By Me, Read By Radiologist - Progress ED Course And Treament: HISTORY: COMPARISON: 06/13/2017. TECHNIQUE: Chest PA and lateral FINDINGS: LINES AND TUBES: None. LUNG AND PLEURA: The lungs are hyperinflated and there is peribronchial thickening with chronic changes in both lungs. No focal consolidation. HEART AND MEDIASTINUM: The heart is not enlarged. The hilar and mediastinal contours are within normal limits. SKELETAL STRUCTURES: The bony structures are within normal limits for the patient's age. VISUALIZED UPPER ABDOMEN: Normal. OTHER FINDINGS: None. IMPRESSION: No active pulmonary disease. COPD. ----- re-exam: increased lung aeration, faint basiliar wheezing noted b/l, no rales/ rhonchi, no tachypenia/accessory muscle use noted pt is comfortable pt states he felt less sob due to pt's symptoms and continued sob will recommend patient for admission residential real estate assistant/team contacted, made aware, will evaluate patient 1700 - child and family counselor at bedside, evaluated patient, agrees with admission pt is made aware of his medical results agrees with admission Re-evaluation Time: 17:30 Condition: Improving,but remains with symptoms - Physician Consult Information Time Consulting Physican Contacted: 18:00 Physician Contacted: family suarez - Critical Care Total Time (In Min): 30 Comments: critical care time: 30min, excluding procedure time, excluding time teaching residents/students/mid-level providers; including initial eval/diagnosis, diagnostic interpretation, re-eval, consultations, final disposition Documented Critical Care: Time excludes all time spent performint seperately billable procedures Nebulizer Treatments/Peak Flow - Duonebs Number of Bronchodilator Doses given?: 3 - Steroid Treatment Steroid: IV - Clinical Response Clinical Response: Improved Medical Decision Making Medical Decision Making: Impression: sob/coughing i have consider all the differential diagnosis regarding pt's chief medical complaints/clinical findings, including but are not limited to: likely copd exacerbation, r/o infection A/P: sob/coughing - xray - acs eval - labs - supportive care - observe/reevaluation Disposition - Clinical Impression Clinical Impression: Acute exacerbation of chronic obstructive pulmonary disease (COPD), Hypoxia - Patient ED Disposition Is Patient to be Admitted: Yes Discussed With : [facility] Doctor Will See Patient In The: ED Counseled Patient/Family Regarding: Studies Performed, Diagnosis, Rx Given, Smoking Cessation - Disposition Disposition Time: 18:00 Condition: STABLE - Pt Status Changed To: Hospital Disposition Of: Observation
--- NOTE | 2017-08-01 16:00 | RAD ---
HISTORY: COMPARISON: 06/13/2017. TECHNIQUE: Chest PA and lateral FINDINGS: LINES AND TUBES: None. LUNG AND PLEURA: The lungs are hyperinflated and there is peribronchial thickening with chronic changes in both lungs. No focal consolidation. HEART AND MEDIASTINUM: The heart is not enlarged. The hilar and mediastinal contours are within normal limits. SKELETAL STRUCTURES: The bony structures are within normal limits for the patient's age. VISUALIZED UPPER ABDOMEN: Normal. OTHER FINDINGS: None. IMPRESSION: No active pulmonary disease. COPD.
[2017-08-01 16:25] LABS: VENOUS BLOOD GAS BASE EXCESS 2.8 mmol/L (0.0-2.0); VENOUS BLOOD GAS PCO2 35 mmHg (40-60); VENOUS BLOOD GAS PO2 44 mm/Hg (30-55); VENOUS BLOOD PH 7.48 (7.32-7.43)
[2017-08-01] MEDS ORDERED: Albuterol-Ipratrop 3 mg / 0.5 (3 ml) UD ONE ×2 (16:25→20:10)
[2017-08-01] MEDS ORDERED: Magnesium Sulfate 2 gm/50 ml 2 GM/50 ML BAG ONE (16:25)
[2017-08-01 16:34] LABS: BASO # 0.1 K/uL (0.0-0.2); BASO % 0.5 % (0.0-2.0); EOS % 0.1 % (0.0-4.0); HEMOGLOBIN 14.2 g/dL (12.0-18.0); LYMPH # 0.8 K/uL (1.0-4.3); LYMPH % 6.3 % (20.0-40.0); MEAN CELL VOLUME 93.7 fl (80.0-94.0); MEAN CORPUSCULAR HGB CONC 33.1 g/dL (33.0-37.0); MONO # 1.1 K/uL (0.0-0.8); MONO % 8.5 % (0.0-10.0); NEUT # 10.8 K/uL (1.8-7.0); NEUT % 84.6 % (50.0-75.0); NRBC % 0.1 % (0.0-0.0); PLATELET COUNT 260 K/uL (130-400); RBC 4.59 Mil/uL (4.40-5.90); RED CELL DISTRIBUTION WIDTH 14.1 % (11.5-14.5); WHITE BLOOD COUNT 12.7 K/uL (4.8-10.8)
[2017-08-01 16:49] LABS: ALB/GLOB RATIO 1.1 (1.0-2.1); ALBUMIN 4.2 g/dL (3.5-5.0); ALT/SGPT 25 U/L (21-72); AST/SGOT 52 U/L (17-59); BLOOD UREA NITROGEN 11 mg/dl (9-20); CALCIUM 8.9 mg/dL (8.4-10.2); GFR AFRICAN-AMERICAN > 60; GFR NON-AFRICAN AMERICAN > 60; LIPASE 48 U/L (23-300)
[2017-08-01 16:55] LABS: B-TYPE NATRIURETIC PEPTIDE 48.7 pg/ml (0-900)
[2017-08-01 17:52] LABS: BANDS 4 % (0-2); EOSINOPHIL 1 % (0-7); LYMPHOCYTE 9 % (20-50); MONOCYTE 12 % (0-10); NEUTROPHIL 74 % (42-75); TOTAL CELLS COUNTED 100
[2017-08-01 17:53] LABS: PLATELET ESTIMATE NORMAL (NORMAL)
[2017-08-01 18:05] LABS: PARTIAL THROMBOPLASTIN TIME 36.2 Seconds (25.6-37.1); PROTHROMBIN TIME 11.4 Seconds (9.8-13.1)
--- NOTE | 2017-08-01 18:28 | CP.PCM.HP ---
History of Present Illness - History of Present Illness History of Present Illness: 61 yr old M presented to ED with complaint of worsening SOB at rest and cough x 1 day after doing yardwork for his neighbor. PMHx includes COPD, current smoker. Denies fevers, chills, increased sputum production, nasal discharge or congestion, weakness, headaches, chest pain, dizziness, nausea, vomiting or swelling of legs. SOB was not alleviated by albuterol inhaler and home medications. PMD: [facility] (last visit 07/10/17, meds refilled, referral given for pulmonology-PFT showed restrictive pattern) PMHx: COPD, gastritis SurgHx: right neck cystectomy FMHx: mother with lung disease (unspecified) SocHx: 45 pack yrs (cut down to 1 cigarette daily recently), 2 beers daily, occasional Marijuana use Medications: Ventolin HFA PRN, Spiriva Handihaler 18 mcg capsule QD, Advair diskus 250/50 mcg dose 2 puffs BID, Famotidine 20mg PO BID Allergies: NKDA ED course: vitals BP 113/74 mmHg, HR 110 , RR 24, Temp 96.0 F, O2 92% on 2L NC -EKG: sinus tachycardia at 103 bpm, no significant ST-T changes -CBC: WBC 12.7, neutrophils 84.6 , rest within normal limits -CMP: K+ 5.1, rest within normal limits -VBG: pH 7.48, pCO2 35, O2 sat 85.3, lactate 1.7 -proBNP 48.7, troponin normal, lipase normal, TSH normal -CXR: no active disease, no focal consolidation/infiltrate, hyperinflated lungs with peribronchial thickening and chronic changes in both lungs -ED tx: Duoneb INH x 3, methylprednisolone 125mg IV once, Magnesium sulfate 2mg IV once -Patient continued to have O2 desaturation to 89% Present on Admission - Present on Admission Any Indicators Present on Admission: No History of DVT/PE: No History of Uncontrolled Diabetes: No Urinary Catheter: No Decubitus Ulcer Present: No History Surgical Site Infection Following: None Review of Systems - Constitutional Constitutional: absent: Chills, Fever, Headache - EENT Eyes: absent: Blurred Vision Ears: absent: Ear Pain Nose/Mouth/Throat: absent: Nasal Congestion, Nasal Discharge, Dysphagia, Sore Throat - Cardiovascular Cardiovascular: Dyspnea, Rapid Heart Rate. absent: Chest Pain, Leg Edema, Syncope - Respiratory Respiratory: Cough, Dyspnea, Wheezing. absent: Hemoptysis, Chest Congestion - Gastrointestinal Gastrointestinal: absent: Heartburn, Nausea, Vomiting - Genitourinary Genitourinary: absent: Difficulty Urinating, Dysuria - Musculoskeletal Musculoskeletal: absent: Back Pain, Muscle Weakness - Integumentary Integumentary: absent: Rash, Swelling - Neurological Neurological: absent: Confusion, Dizziness, Weakness - Endocrine Endocrine: absent: Polydipsia, Polyphagia - Hematologic/Lymphatic Hematologic: absent: Easy Bleeding, Easy Bruising Past Patient History - Infectious Disease Hx of Infectious Diseases: None - Tetanus Immunizations Tetanus Immunization: Unknown - Past Medical History & Family History Past Medical History?: Yes - Past Social History Smoking Status: Current Some Days Smoker - CARDIAC Hx Cardiac Disorders: No - PULMONARY Hx Asthma: Yes Hx Chronic Obstructive Pulmonary Disease (COPD): Yes Hx Emphysema: Yes Hx Pneumonia: Yes - NEUROLOGICAL Hx Neurological Disorder: No - HEENT Hx HEENT Problems: No - RENAL Hx Chronic Kidney Disease: No - ENDOCRINE/METABOLIC Hx Endocrine Disorders: No - INTEGUMENTARY Hx Dermatological Problems: No - MUSCULOSKELETAL/RHEUMATOLOGICAL Hx Musculoskeletal Disorders: Yes Hx Falls: Yes - GASTROINTESTINAL Hx Gastrointestinal Disorders: No - PSYCHIATRIC Hx Psychophysiologic Disorder: No Hx Substance Use: Yes (marijuana use) - SURGICAL HISTORY Hx Surgeries: Yes (neck cyst right side) Other/Comment: right neck cyst removal 5 years ago - ANESTHESIA Hx Anesthesia: Yes Hx Anesthesia Reactions: No Hx Malignant Hyperthermia: No Meds Allergies/Adverse Reactions: Allergies Allergy/AdvReac Type Severity Reaction Status Date / Time No Known Allergies Allergy Verified 08/01/17 14:43 Physical Exam - Constitutional Appears: Non-toxic (cooperative, able to speak in full sentences taking slow deep breaths after each sentence), Older Than Stated Age - Head Exam Head Exam: ATRAUMATIC, NORMOCEPHALIC - Eye Exam Eye Exam: EOMI, PERRL. absent: Scleral icterus - ENT Exam ENT Exam: Mucous Membranes Moist, Normal Oropharynx - Neck Exam Neck exam: Negative for: Lymphadenopathy - Respiratory Exam Respiratory Exam: Wheezes (mild expiratory wheeze, good air entry). absent: Rales, Rhonchi - Cardiovascular Exam Cardiovascular Exam: REGULAR RHYTHM, +S1, +S2. absent: Gallop - GI/Abdominal Exam GI & Abdominal Exam: Normal Bowel Sounds, Soft. absent: Tenderness - Extremities Exam Extremities exam: Positive for: full ROM, pedal pulses present. Negative for: calf tenderness, pedal edema, tenderness - Back Exam Back exam: absent: CVA tenderness (L), CVA tenderness (R) - Neurological Exam Neurological exam: Alert, CN II-XII Intact (grossly intact) - Psychiatric Exam Psychiatric exam: Normal Affect, Normal Mood - Skin Skin Exam: Dry, Intact, Normal Color, Warm Results - Vital Signs Recent Vital Signs: Last Vital Signs Temp 96.0 F L 08/01/17 14:43 Pulse 110 H 08/01/17 14:43 Resp 20 08/01/17 16:44 BP 113/74 08/01/17 14:43 Pulse Ox 92 L 08/01/17 18:15 - Labs Result Diagrams: 08/01/17 16:15 08/01/17 16:15 Labs: Laboratory Results - last 24 hr 08/01/17 08/01/17 08/01/17 16:15 16:15 16:20 WBC 12.7 H D RBC 4.59 Hgb 14.2 Hct 43.0 MCV 93.7 MCH 31.0 MCHC 33.1 RDW 14.1 Plt Count 260 MPV 8.0 Neut % (Auto) 84.6 H Lymph % (Auto) 6.3 L [place] % (Auto) 8.5 Eos % (Auto) 0.1 Baso % (Auto) 0.5 Neut # (Auto) 10.8 H Lymph # (Auto) 0.8 L [place] # (Auto) 1.1 H Eos # (Auto) 0.0 Baso # (Auto) 0.1 Neutrophils % (Manual) 74 Band Neutrophils % 4 H Lymphocytes % (Manual) 9 L Monocytes % (Manual) 12 H Eosinophils % (Manual) 1 Platelet Estimate Normal PT INR APTT pO2 44 VBG pH 7.48 H VBG pCO2 35 L VBG HCO3 26.7 VBG Total CO2 27.2 VBG O2 Sat (Calc) 85.3 H VBG Base Excess 2.8 H VBG Potassium 5.1 Glucose 112 H Lactate 1.7 FiO2 21.0 Sodium 135 132.0 Potassium 5.1 H Chloride 100 100.0 Carbon Dioxide 21 L Anion Gap 19 BUN 11 Creatinine 0.4 L Est GFR ( Amer) > 60 Est GFR (Non-Af Amer) > 60 Random Glucose 105 Calcium 8.9 Phosphorus 3.3 Magnesium 1.8 Total Bilirubin 1.2 AST 52 ALT 25 Alkaline Phosphatase 57 Troponin I < 0.0120 NT-Pro-B Natriuret Pep 48.7 Total Protein 8.1 Albumin 4.2 Globulin 3.9 Albumin/Globulin Ratio 1.1 Lipase 48 TSH 3rd Generation 0.69 Venous Blood Potassium 5.1 08/01/17 17:49 WBC RBC Hgb Hct MCV MCH MCHC RDW Plt Count MPV Neut % (Auto) Lymph % (Auto) [place] % (Auto) Eos % (Auto) Baso % (Auto) Neut # (Auto) Lymph # (Auto) [place] # (Auto) Eos # (Auto) Baso # (Auto) Neutrophils % (Manual) Band Neutrophils % Lymphocytes % (Manual) Monocytes % (Manual) Eosinophils % (Manual) Platelet Estimate PT 11.4 INR 1.0 APTT 36.2 pO2 VBG pH VBG pCO2 VBG HCO3 VBG Total CO2 VBG O2 Sat (Calc) VBG Base Excess VBG Potassium Glucose Lactate FiO2 Sodium Potassium Chloride Carbon Dioxide Anion Gap BUN Creatinine Est GFR ( Amer) Est GFR (Non-Af Amer) Random Glucose Calcium Phosphorus Magnesium Total Bilirubin AST ALT Alkaline Phosphatase Troponin I NT-Pro-B Natriuret Pep Total Protein Albumin Globulin Albumin/Globulin Ratio Lipase TSH 3rd Generation Venous Blood Potassium Assessment & Plan - Assessment and Plan (Free Text) Assessment: 61 yr old M admitted for COPD exacerbation with O2 desaturation to 85-88% after ED treatment with duonebs x 3, magnesium 2gm IV and 125mg IV methylprednisolone. 1. COPD exacerbation -acute on chronic COPD, uncontrolled -worsening dyspnea and cough despite home medication adherence -CXR negative for active disease, mild leukocytosis 12.7 with minimal left shift of 84.6%, no increase in sputum production, afebrile -admit to tele -Duoneb Q4 scheduled -Methylprednisolone 60mg IV BID -2L supplemental O2 via nasal cannula to keep O2 sat above 92% 2. Gastritis -chronic, controlled -continue home medication Famotidine 20mg PO BID 3. DVT prophylaxis -Lovenox 40 mg SC QD -SCD's - Date & Time Date: 08/01/17 Time: 18:00
[2017-08-01] MEDS: Albuterol-Ipratrop 3 mg / 0.5 (3 ml) UD INH SCH ×2 (20:06→23:05)
[2017-08-02] MEDS: Albuterol-Ipratrop 3 mg / 0.5 (3 ml) UD INH SCH ×3 (04:46→11:35)
[2017-08-02 06:54] LABS: HEMOGLOBIN 14.3 g/dL (12.0-18.0); MEAN CELL VOLUME 94.4 fl (80.0-94.0); MEAN CORPUSCULAR HEMOGLOBIN 31.4 pg (27.0-31.0); MEAN CORPUSCULAR HGB CONC 33.3 g/dL (33.0-37.0); RBC 4.57 Mil/uL (4.40-5.90); WHITE BLOOD COUNT 5.7 K/uL (4.8-10.8)
[2017-08-02 08:06] VITALS: RESP 18
--- NOTE | 2017-08-02 08:16 | CP.PCM.PN ---
Subjective - Date & Time of Evaluation Date of Evaluation: 08/02/17 Time of Evaluation: 08:50 - Subjective Subjective: Patient seen and examined this morning. Patient reports he is feeling better than yesterday. Reports improved shortness of breath and cough. Was on 3L [place] oxygen last night and currently on RA. Denies any chest pain, dizziness, nausea , vomiting, fever, or chills. Tolerating PO. No other complaints. Objective - Vital Signs/Intake and Output Vital Signs (last 24 hours): Temp Pulse Resp BP Pulse Ox 98.1 F 82 18 109/77 97 08/02/17 08:00 08/02/17 08:00 08/02/17 08:00 08/02/17 08:00 08/02/17 08:00 - Medications Medications: Current Medications Albuterol/Ipratropium (Duoneb 3 Mg/0.5 Mg (3 Ml) Ud) 3 ml INH RQ4 [facility] Last Admin: 08/02/17 07:52 Dose: 3 ml Enoxaparin Sodium (Lovenox) 40 mg SC DAILY [facility] PRN Reason: Protocol Famotidine (Pepcid) 20 mg PO BID [facility] Last Admin: 08/01/17 19:35 Dose: 20 mg Methylprednisolone (Solu-Medrol) 60 mg IVP BID [facility] Last Admin: 08/01/17 21:10 Dose: 60 mg - Labs Labs: 08/02/17 05:50 08/01/17 16:15 PT 11.4 Seconds (9.8-13.1) 08/01/17 17:49 INR 1.0 (0.9-1.2) 08/01/17 17:49 APTT 36.2 Seconds (25.6-37.1) 08/01/17 17:49 - Constitutional Appears: Non-toxic, No Acute Distress, Chronically Ill, Other (Thin appearing) - Head Exam Head Exam: NORMAL INSPECTION - Eye Exam Eye Exam: EOMI, Normal appearance - ENT Exam ENT Exam: Mucous Membranes Moist, Normal Oropharynx - Neck Exam Neck Exam: Normal Inspection
[2017-08-02] MEDS ORDERED: Tiotropium 18 mcg Cap For Inhalation IH SCH (09:00)
[2017-08-02] MEDS ORDERED: Enoxaparin 40 mg Syringe SC SCH (09:00)
[2017-08-02] MEDS ORDERED: Fluticasone-Salmeterol 250-50mcg Diskus IH SCH (11:45)
[2017-08-02] MEDS ORDERED: Tiotropium 18 mcg Cap For Inhalation INH SCH (11:45)
[2017-08-02 11:52] VITALS: BP 112/75; PULSE 80; TEMP 97.8; O2SAT 96
--- NOTE | 2017-08-02 14:57 | CARD ---
APPROVED REPORT EKG Measurement Heart [id number] [place] [id number] [id number] <Conclusion> Sinus tachycardia Otherwise normal ECG
--- NOTE | 2017-08-02 15:04 | CP.PCM.DIS ---
Provider - Provider Date of Admission: 08/01/17 18:03 Attending physician: Cici Avendano MD Time Spent in preparation of Discharge (in minutes): 30 Diagnosis - Discharge Diagnosis (1) COPD exacerbation Status: Acute (2) Hypoxia Status: Resolved Hospital Course - Lab Results Lab Results: Most Recent Lab Values WBC 5.7 K/uL (4.8-10.8) D 08/02/17 05:50 RBC 4.57 Mil/uL (4.40-5.90) 08/02/17 05:50 Hgb 14.3 g/dL (12.0-18.0) 08/02/17 05:50 Hct 43.1 % (35.0-51.0) 08/02/17 05:50 MCV 94.4 fl (80.0-94.0) H 08/02/17 05:50 MCH 31.4 pg (27.0-31.0) H 08/02/17 05:50 MCHC 33.3 g/dL (33.0-37.0) 08/02/17 05:50 RDW 14.0 % (11.5-14.5) 08/02/17 05:50 Plt Count 271 K/uL (130-400) 08/02/17 05:50 MPV 8.0 fl (7.2-11.7) 08/01/17 16:15 Neut % (Auto) 84.6 % (50.0-75.0) H 08/01/17 16:15 Lymph % (Auto) 6.3 % (20.0-40.0) L 08/01/17 16:15 [place] % (Auto) 8.5 % (0.0-10.0) 08/01/17 16:15 Eos % (Auto) 0.1 % (0.0-4.0) 08/01/17 16:15 Baso % (Auto) 0.5 % (0.0-2.0) 08/01/17 16:15 Neut # (Auto) 10.8 K/uL (1.8-7.0) H 08/01/17 16:15 Lymph # (Auto) 0.8 K/uL (1.0-4.3) L 08/01/17 16:15 [place] # (Auto) 1.1 K/uL (0.0-0.8) H 08/01/17 16:15 Eos # (Auto) 0.0 K/uL (0.0-0.7) 08/01/17 16:15 Baso # (Auto) 0.1 K/uL (0.0-0.2) 08/01/17 16:15 Neutrophils % (Manual) 74 % (42-75) 08/01/17 16:15 Band Neutrophils % 4 % (0-2) H 08/01/17 16:15 Lymphocytes % (Manual) 9 % (20-50) L 08/01/17 16:15 Monocytes % (Manual) 12 % (0-10) H 08/01/17 16:15 Eosinophils % (Manual) 1 % (0-7) 08/01/17 16:15 Platelet Estimate Normal (NORMAL) 08/01/17 16:15 PT 11.4 Seconds (9.8-13.1) 08/01/17 17:49 INR 1.0 (0.9-1.2) 08/01/17 17:49 APTT 36.2 Seconds (25.6-37.1) 08/01/17 17:49 pO2 44 mm/Hg (30-55) 08/01/17 16:20 VBG pH 7.48 (7.32-7.43) H 08/01/17 16:20 VBG pCO2 35 mmHg (40-60) L 08/01/17 16:20 VBG HCO3 26.7 mmol/L 08/01/17 16:20 VBG Total CO2 27.2 mmol/L (22-28) 08/01/17 16:20 VBG O2 Sat (Calc) 85.3 % (40-65) H 08/01/17 16:20 VBG Base Excess 2.8 mmol/L (0.0-2.0) H 08/01/17 16:20 VBG Potassium 5.1 mmol/L (3.6-5.2) 08/01/17 16:20 Sodium 132.0 mmol/L (132-148) 08/01/17 16:20 Chloride 100.0 mmol/L (98-107) 08/01/17 16:20 Glucose 112 mg/dL (75-110) H 08/01/17 16:20 Lactate 1.7 mmol/L (0.7-2.1) 08/01/17 16:20 FiO2 21.0 % 08/01/17 16:20 Sodium 135 mmol/l (132-148) 08/01/17 16:15 Potassium 5.1 MMOL/L (3.6-5.0) H 08/01/17 16:15 Chloride 100 mmol/L (98-107) 08/01/17 16:15 Carbon Dioxide 21 mmol/L (22-30) L 08/01/17 16:15 Anion Gap 19 (10-20) 08/01/17 16:15 BUN 11 mg/dl (9-20) 08/01/17 16:15 Creatinine 0.4 mg/dl (0.8-1.5) L 08/01/17 16:15 Est GFR ( Amer) > 60 08/01/17 16:15 Est GFR (Non-Af Amer) > 60 08/01/17 16:15 Random Glucose 105 mg/dL (75-110) 08/01/17 16:15 Calcium 8.9 mg/dL (8.4-10.2) 08/01/17 16:15 Phosphorus 3.3 mg/dl (2.5-4.5) 08/01/17 16:15 Magnesium 1.8 MG/DL (1.6-2.3) 08/01/17 16:15 Total Bilirubin 1.2 mg/dl (0.2-1.3) 08/01/17 16:15 AST 52 U/L (17-59) 08/01/17 16:15 ALT 25 U/L (21-72) 08/01/17 16:15 Alkaline Phosphatase 57 U/L (38-126) 08/01/17 16:15 Troponin I < 0.0120 ng/mL (0.00-0.120) 08/01/17 16:15 NT-Pro-B Natriuret Pep 48.7 pg/ml (0-900) 08/01/17 16:15 Total Protein 8.1 G/DL (6.3-8.2) 08/01/17 16:15 Albumin 4.2 g/dL (3.5-5.0) 08/01/17 16:15 Globulin 3.9 gm/dL (2.2-3.9) 08/01/17 16:15 Albumin/Globulin Ratio 1.1 (1.0-2.1) 08/01/17 16:15 Lipase 48 U/L (23-300) 08/01/17 16:15 TSH 3rd Generation 0.69 mIU/ML (0.46-4.68) 08/01/17 16:15 Venous Blood Potassium 5.1 mmol/L (3.6-5.2) 08/01/17 16:20 - Hospital Course Hospital Course: 61 year old male with PMHx of COPD, 45 pack years of smoking cigarettes admitted to [facility] on 08/01/17 for COPD exacerbation.Pt received duoneb INH x 3, methylprednisolone 125mg IV once, Magnesium sulfate 2mg IV once in the ED. Pt was on 3L [place] oxygen overnight and received methylprednisolone 60 mg IPV this morning and has been on duoneb q4 hours. States his symptoms has improved and breathing comfortably in room air. Pt saturated >90% with a walk test and displayed no dyspnea with walking. Pt is medically stable to discharge home. Advised to f/u PMD in 1 week and has referral for outpatient design verification engineer follow up. Discharge medications: Prednisone [Deltasone] 40 mg PO DAILY 4 Days (new rx) Albuterol 0.083% [Albuterol Sulfate 3 Ml] 3 ml IH Q4H PRN 30 Days (new rx) Famotidine [Pepcid] 20 mg PO BID #60 tab (new rx) Spiriva Handihaler 18 mcg capsule 1 capsule once a day Advair diskus 250-50 mcg/dose 1 puff BID Dicyclomine 20 mg tab po tid Discharge Exam - Head Exam Head Exam: ATRAUMATIC, NORMOCEPHALIC - Eye Exam Eye Exam: Normal appearance - ENT Exam ENT Exam: Mucous Membranes Moist - Respiratory Exam Respiratory Exam: Rhonchi (Mild B/L lower lung field), NORMAL BREATHING PATTERN. absent: Accessory Muscle Use, Wheezes, Respiratory Distress - Cardiovascular Exam Cardiovascular Exam: REGULAR RHYTHM, RRR, +S1, +S2 - GI/Abdominal Exam GI & Abdominal Exam: Normal Bowel Sounds, Soft. absent: Tenderness - Extremities Exam Extremities exam: normal inspection - Neurological Exam Neurological exam: Alert, Oriented x3 - Psychiatric Exam Psychiatric exam: Normal Affect, Normal Mood - Skin Skin Exam: Dry, Normal Color, Warm Discharge Plan - Discharge Medications Prescriptions: Albuterol 0.083% [Albuterol Sulfate 3 Ml] 3 ml IH Q4H PRN 30 Days neb PRN Reason: Shortness Of Breath Famotidine [Pepcid] 20 mg PO BID #60 tab Prednisone [Deltasone] 40 mg PO DAILY 4 Days tablet - Follow Up Plan Condition: STABLE Disposition: HOME/ ROUTINE Instructions: Exacerbation of COPD (DC) Additional Instructions: Please follow up with PCP this week Take medications as prescribed. Return to ER for any new/worsening symptoms (e.g. worsening cough, shortness of breath, etc.)
== END 2017-08-02 15:45 | disposition home or self-care (01) ==
LOC: H.ER 14:39 → H.ERHOLD 18:03 → H.TEL 21:35
PROVIDERS: ADMIT Family Medicine Geriatric Medicine; ATTEND Family Medicine Geriatric Medicine
DX: J44.1 Chronic obstructive pulmonary disease with (acute) exacerbation (principal); F12.90 Cannabis use, unspecified, uncomplicated; F17.200 Nicotine dependence, unspecified, uncomplicated; K29.70 Gastritis, unspecified, without bleeding; R09.02 Hypoxemia; Z87.01 Personal history of pneumonia (recurrent)
CPT/HCPCS: 36415; 71046; 80053; 82803; 83690; 83735; 83880; 84100; 84443; 84484; 85025; 85027; 85610; 85730; 93005; 94640; 96372; 96374; 96375; 96376; 99285; G0378; J1650; J2930

== ENCOUNTER 2017-09-11 04:47 | Inpatient (IN) | payer MEDICAID, SELFPAY ==
[2017-09-11 04:47] VITALS: BMI 20.9
[2017-09-11] MEDS ORDERED: Albuterol-Ipratrop 3 mg / 0.5 (3 ml) UD INH STA ×4 (05:19→13:05)
[2017-09-11] MEDS ORDERED: Albuterol-Ipratrop 3 mg / 0.5 (3 ml) UD ONE (05:26)
--- NOTE | 2017-09-11 05:48 | ED PDOC ---
HPI: SOB/CHF/COPD Time Seen by Provider: 09/11/17 05:04 Chief Complaint (Nursing): Shortness Of Breath Chief Complaint (Provider): Shortness Of Breath History Per: Patient History/Exam Limitations: no limitations Onset/Duration Of Symptoms: Hrs Current Symptoms Are (Timing): Still Present Additional Complaint(s): 61 y/o male with a PMHx of COPD presents to the ED with complaints of shortness of breath associated with cough, wheezing, and dyspnea, onset a couple of hours ago. Patient states he has a neubilzer pump that he has used today. Denies leg swelling, chest pain, and fever PMD: Ronda Guardado Past Medical History Reviewed: Historical Data, Nursing Documentation, Vital Signs Vital Signs: Last Vital Signs Temp 98.1 F 09/12/17 00:05 Pulse 69 09/12/17 00:05 Resp 18 09/12/17 00:05 BP 115/78 09/12/17 00:05 Pulse Ox 96 09/12/17 00:05 - Medical History PMH: Asthma, COPD, Emphysema, Pneumonia Denies: Chronic Kidney Disease - Surgical History Surgical History: No Surg Hx - Family History Family History: States: Unknown Family Hx - Social History Current smoker - smoking cessation education provided: Yes - Home Medications Home Medications: Ambulatory Orders Medication Instructions Recorded Albuterol HFA [Ventolin HFA 90 2 puff IH [id number] 08/01/17 mcg/actuation (8 g)] Tiotropium [place] Inhaler 1 inhaler INH DAILY 08/01/17 [Spiriva Inhalation Handihaler Device] Albuterol 0.083% [Albuterol 3 ml IH Q4H PRN 30 Days neb 08/02/17 Sulfate 3 Ml] Famotidine [Pepcid] 20 mg PO BID #60 tab 08/02/17 Fluticasone/Salmeterol 250/50 1 puff IH Q12 08/02/17 [Advair Diskus 250/50] Prednisone [Deltasone] 40 mg PO DAILY 4 Days tablet 08/02/17 - Allergies Allergies/Adverse Reactions: Allergies Allergy/AdvReac Type Severity Reaction Status Date / Time No Known Allergies Allergy Verified 09/11/17 05:05 Review of Systems ROS Statement: Except As Marked, All Systems Reviewed And Found Negative Cardiovascular: Negative for: Chest Pain Respiratory: Positive for: Cough, Shortness of Breath, Wheezing, Other (dyspnea) Musculoskeletal: Negative for: Leg Pain Physical Exam - Reviewed Nursing Documentation Reviewed: Yes Vital Signs Reviewed: Yes - Physical Exam Appears: Positive for: Uncomfortable Head Exam: Positive for: ATRAUMATIC, NORMOCEPHALIC Skin: Positive for: Normal Color, Warm, Dry Eye Exam: Positive for: Normal appearance, EOMI, PERRL ENT: Positive for: Normal ENT Inspection Neck: Positive for: Normal, Painless ROM Cardiovascular/Chest: Positive for: Regular Rate, Rhythm Respiratory: Positive for: Wheezing, Respiratory Distress Extremity: Positive for: Normal ROM Neurologic/Psych: Positive for: Alert, Oriented - Laboratory Results Result Diagrams: 09/11/17 05:34 09/11/17 05:34 - ECG O2 Sat by Pulse Oximetry: 91 (RA) Medical Decision Making Medical Decision Making: Time:522 Impression: wheezing and dyspnea Differentials include but not limited to COPD Plan: -- Arterial Blood Gas -- EKG -- B-Type Natriuretic -- Troponin I -- CBC with diffeentials -- Duoneb 3 mL UNH X3 -- Solu-medrol 125 mg IVP -- Peak Flow/ Post Flow Scribe Attestation: Documented by Teetee Richards acting as a scribe for Dr. Liana Walsh MD. Provider Scribe Attestation: All medical record entries made by the Scribe were at my direction and personally dictated by me. I have reviewed the chart and agree that the record accurately reflects my personal performance of the history, physical exam, medical decision making, and the department course for this patient. I have also personally directed, reviewed, and agree with the discharge instructions and disposition. Disposition - Clinical Impression Clinical Impression: COPD exacerbation - Patient ED Disposition Is Patient to be Admitted: Transfer of Care Counseled Patient/Family Regarding: Studies Performed, Diagnosis - Disposition Disposition: Transfer of Care Disposition Time: 07:00 Condition: FAIR Patient Signed Over To: Shi Monson
[2017-09-11 06:49] LABS: ABG ALLEN TEST YES; ARTERIAL BLOOD GAS HCO3 24.5 mmol/L (21-28); ARTERIAL BLOOD GAS HEMOGLOBIN 12.7 g/dL (11.7-17.4); ARTERIAL BLOOD GAS O2 CAPACITY 16.6 mL/dL (16-24); ARTERIAL BLOOD GAS O2 CONTENT 16.3 ML/dL (15-23); ARTERIAL BLOOD GAS O2 SAT 98.3 % (95-98); ARTERIAL BLOOD GAS PCO2 45 mm/Hg (35-45); ARTERIAL BLOOD GAS PH 7.36 (7.35-7.45); ARTERIAL BLOOD GAS PO2 78 mm/Hg (80-100); ARTERIAL BLOOD GAS TCO2 26.8 mmol/L (22-28)
[2017-09-11 06:52] LABS: BASO # 0.1 K/uL (0.0-0.2); BASO % 2.5 % (0.0-2.0); EOS # 0.6 K/uL (0.0-0.7); HEMOGLOBIN 13.1 g/dL (12.0-18.0); LYMPH # 2.1 K/uL (1.0-4.3); MEAN CELL VOLUME 94.8 fl (80.0-94.0); MEAN CORPUSCULAR HEMOGLOBIN 32.3 pg (27.0-31.0); MEAN PLATELET VOLUME 7.6 fl (7.2-11.7); MONO # 0.7 K/uL (0.0-0.8); MONO % 13.9 % (0.0-10.0); NEUT # 1.7 K/uL (1.8-7.0); NEUT % 31.6 % (50.0-75.0); NRBC % 0.2 % (0.0-0.0); RBC 4.06 Mil/uL (4.40-5.90); RED CELL DISTRIBUTION WIDTH 14.3 % (11.5-14.5); WHITE BLOOD COUNT 5.2 K/uL (4.8-10.8)
[2017-09-11 07:05] LABS: BLOOD UREA NITROGEN 4 mg/dl (9-20); GFR AFRICAN-AMERICAN > 60; GFR NON-AFRICAN AMERICAN > 60
[2017-09-11 07:17] LABS: B-TYPE NATRIURETIC PEPTIDE 66.2 pg/ml (0-900)
--- NOTE | 2017-09-11 08:05 | ED PDOC ---
- Laboratory Results Result Diagrams: 09/11/17 05:34 09/11/17 05:34 - ECG O2 Sat by Pulse Oximetry: 91 (RA) Medical Decision Making Medical Decision Making: received patient endorsement from Dr. Walsh. Patient has COPD here with exacerbation of symptoms. Chest x-ray without acute disease. Patient states that he is not feeling significantly better since arrival and after the nebs given. Case d/w FP resident. Will admit to observation. Disposition Doctor Will See Patient In The: Hospital - Clinical Impression Clinical Impression: COPD exacerbation - POA Present On Arrival: None - Disposition Disposition: Transfer of Care Disposition Time: 08:00 Condition: FAIR Instructions: Chronic Obstructive Pulmonary Disease (COPD), Including Emphysema Forms: [employer] (Macedonian)
[2017-09-11] MEDS ORDERED: Potassium Chloride 20 mEq/15 ml LIQ UD PO ONE (08:33)
--- NOTE | 2017-09-11 08:34 | CP.PCM.HP ---
History of Present Illness - History of Present Illness History of Present Illness: "gary been having trouble breathing since yesterday" 61 y/o male with a PMHx of COPD, heavy tobacco abuse, presented to [facility] ED for evaluation of acute SOB. Pt reports he was walking around outside in the heat/ humidity and started to have trouble breathing as well as developed a cough. He reports the triggering event was likely the environment. He used his ventolin inhaler without improvement. He went home to rest overnight but noticed he felt worse so he came to the ED for evaluation. He reports he has an increased cough , with scant white sputum but has not noticed an increase in total production or purulence. He denies any URI symptoms or sinus problems. No sick contacts. Denies fever/chills. Denies cardinal cardiac symptoms. No other complaints/ concerns. ROS: 12 systems reviewed, as per HPI PMD: Kylee/[facility], last visit early August 2017 PMHx: heavy tobacco abuse, COPD, bronchitis ALL: NKDA Meds: Spirva, Advair, Ventolin PsurgHx: neck cyst excision PHospHx: multiple admissions for COPD exac FamilyHx: does not know any medical hx of family SocialHx: >10 ciggs per day for >40 years, daily ETOH abuse, denies drugs Next of Kin: Cousin, Alia (as per demographics) Code Status: full code ED Course: Vitals: POX 91% RA, BP wnl, afebrile, RR 16, HR wnl Labs: CBC: wnl BMP: wnl ABG: wnl Imaging: CXR: hyperinflated lung parekh, costophrenic angle blunting, no infliltrate, no cardiomegaly (as interpeted by me) offical report pending EKG: NSR, normal QRS amplitudes, normal P wave height in Lead II, normal axis, no acute changes (as interpreted by me), official report pending Treatment: Duoneb x 3 NS 1L Methylpredniose 125mg admit to med/surg Present on Admission - Present on Admission Any Indicators Present on Admission: No History of DVT/PE: No History of Uncontrolled Diabetes: No Urinary Catheter: No Decubitus Ulcer Present: No Past Patient History - Infectious Disease Hx of Infectious Diseases: None - Tetanus Immunizations Tetanus Immunization: Unknown - Past Medical History & Family History Past Medical History?: Yes Past Family History: Reviewed and not pertinent - Past Social History Smoking Status: Heavy Smoker > 10 Cigarettes Daily Alcohol: > 2 Drinks/Day Home Situation {Lives}: Alone - CARDIAC Hx Cardiac Disorders: No - PULMONARY Hx Asthma: Yes Hx Chronic Obstructive Pulmonary Disease (COPD): Yes Hx Emphysema: Yes Hx Pneumonia: Yes - NEUROLOGICAL Hx Neurological Disorder: No - HEENT Hx HEENT Problems: No - RENAL Hx Chronic Kidney Disease: No - ENDOCRINE/METABOLIC Hx Endocrine Disorders: No - INTEGUMENTARY Hx Dermatological Problems: No - MUSCULOSKELETAL/RHEUMATOLOGICAL Hx Falls: Yes - GASTROINTESTINAL Hx Gastrointestinal Disorders: No - PSYCHIATRIC Hx Psychophysiologic Disorder: No Hx Substance Use: Yes (marijuana) - SURGICAL HISTORY Hx Surgeries: Yes (neck cyst right side) Other/Comment: right neck cyst removal 5 years ago - ANESTHESIA Hx Anesthesia: Yes Hx Anesthesia Reactions: No Hx Malignant Hyperthermia: No Meds Allergies/Adverse Reactions: Allergies Allergy/AdvReac Type Severity Reaction Status Date / Time No Known Allergies Allergy Verified 09/11/17 05:05 Physical Exam - Constitutional Appears: Non-toxic, No Acute Distress, Chronically Ill - Head Exam Head Exam: ATRAUMATIC, NORMAL INSPECTION, NORMOCEPHALIC - Eye Exam Eye Exam: EOMI, Normal appearance, PERRL. absent: Conjunctival injection, Scleral icterus Pupil Exam: NORMAL ACCOMODATION - ENT Exam ENT Exam: Mucous Membranes Moist, Normal Exam - Neck Exam Neck exam: Positive for: Normal Inspection. Negative for: Lymphadenopathy - Respiratory Exam Respiratory Exam: Accessory Muscle Use, Decreased Breath Sounds, Prolonged Expiratory Phase, Rales, Wheezes. absent: Clear to Auscultation Bilateral, Rhonchi, Respiratory Distress Additional comments: decreased air entry b/l, wheezing throughout both lung parekh, prolong exp phase , - Cardiovascular Exam Cardiovascular Exam: REGULAR RHYTHM, RRR, +S1, +S2. absent: Tachycardia, JVD, Systolic Murmur - GI/Abdominal Exam GI & Abdominal Exam: Normal Bowel Sounds, Soft. absent: Distended, Firm, Guarding, Rebound, Rigid, Tenderness - Extremities Exam Extremities exam: Positive for: normal capillary refill, normal inspection, tenderness, pedal pulses present. Negative for: pedal edema - Neurological Exam Neurological exam: Alert, CN II-XII Intact, Normal Gait, Oriented x3, Reflexes Normal - Psychiatric Exam Psychiatric exam: Normal Affect, Normal Mood - Skin Skin Exam: Dry, Intact, Normal Color, Warm Results - Vital Signs Recent Vital Signs: Last Vital Signs Temp 98.1 F 09/11/17 08:02 Pulse 88 09/11/17 08:02 Resp 16 09/11/17 08:02 BP 99/69 L 09/11/17 08:02 Pulse Ox 91 L 09/11/17 08:09 - Labs Result Diagrams: 09/11/17 05:34 09/11/17 05:34 Labs: Laboratory Results - last 24 hr 09/11/17 09/11/17 09/11/17 05:34 05:34 06:40 WBC 5.2 RBC 4.06 L Hgb 13.1 Hct 38.5 MCV 94.8 H MCH 32.3 H MCHC 34.0 RDW 14.3 Plt Count 311 MPV 7.6 Neut % (Auto) 31.6 L Lymph % (Auto) 40.0 [place] % (Auto) 13.9 H Eos % (Auto) 12.0 H Baso % (Auto) 2.5 H Neut # (Auto) 1.7 L Lymph # (Auto) 2.1 [place] # (Auto) 0.7 Eos # (Auto) 0.6 Baso # (Auto) 0.1 pCO2 45 pO2 78 L HCO3 24.5 ABG pH 7.36 ABG Total CO2 26.8 ABG O2 Saturation 98.3 H ABG O2 Content 16.3 ABG Base Excess -0.4 ABG Hemoglobin 12.7 ABG Carboxyhemoglobin 5.0 H POC ABG HHb (Measured) 1.6 ABG Methemoglobin 2.7 ABG O2 Capacity 16.6 Otoniel Test Yes A-a O2 Difference 15.0 Hgb O2 Saturation 90.8 L FiO2 21.0 Sodium 144 Potassium 3.6 Chloride 106 Carbon Dioxide 24 Anion Gap 18 BUN 4 L Creatinine 0.4 L Est GFR ( Amer) > 60 Est GFR (Non-Af Amer) > 60 Random Glucose 89 Calcium 9.0 Troponin I < 0.0120 NT-Pro-B Natriuret Pep 66.2 Assessment & Plan - Assessment and Plan (Free Text) Assessment: 61 y/o male with PMHx of COPD admitted for Acute COPD exacerbation. Plan: 1) Acute COPD Exacerbation -afebrile -no leukocytosis -s/p 125mg Solu-medrol, Duoneb x3 -c/w with Duo-Nebs Q4H -IV steroids 60mg BID -O2 supplement, keep POX ~92% -follow up AM labs/trend treatment 2) Diet -regular 3) Prophylaxis -Lovenox 40mg SC QD 4) Code Status -full code
[2017-09-11] MEDS ORDERED: Ciprofloxacin 400mg/200ml D5W 400 MG/200 ML BAG IVPB SCH (09:00)
[2017-09-11] MEDS ORDERED: methylPREDNISolone 60 MG in Sodium Chloride 0.9% 50 ML IVPB SCH (09:00)
[2017-09-11] MEDS ORDERED: Albuterol-Ipratrop 3 mg / 0.5 (3 ml) UD NEB SCH (09:00)
--- NOTE | 2017-09-11 09:10 | RAD ---
PROCEDURE: CHEST RADIOGRAPH, 1 VIEW HISTORY: dyspnea COMPARISON: Chest radiographs 08/01/2017. FINDINGS: LUNGS: No acute pulmonary disease appreciated. PLEURA: No pneumothorax or pleural fluid seen. CARDIOVASCULAR: Normal. OSSEOUS STRUCTURES: No significant abnormalities. VISUALIZED UPPER ABDOMEN: Normal. OTHER FINDINGS: None. IMPRESSION: No interval acute cardiopulmonary disease appreciated.
[2017-09-11] MEDS: Albuterol-Ipratrop 3 mg / 0.5 (3 ml) UD NEB SCH ×3 (11:28→19:00)
[2017-09-12] MEDS: Albuterol-Ipratrop 3 mg / 0.5 (3 ml) UD NEB SCH ×4 (07:13→19:51)
--- NOTE | 2017-09-12 07:34 | CP.PCM.PN ---
Subjective - Date & Time of Evaluation Date of Evaluation: 09/12/17 Time of Evaluation: 07:34 - Subjective Subjective: pt seen and examined at bedside. No acute events overnight. Pt reports mild improvement in symptoms but still feels shortness of breath. Slept decently as per pt. Has been getting treatment as ordered. OOB/ambulating w/o difficulty. Afebrile. Labs/vitals reviewed. Objective - Vital Signs/Intake and Output Vital Signs (last 24 hours): Temp Pulse Resp BP Pulse Ox 98.1 F 69 18 115/78 91 L 09/12/17 00:05 09/12/17 00:05 09/12/17 00:05 09/12/17 00:05 09/12/17 03:32 - Medications Medications: Current Medications Albuterol/Ipratropium (Duoneb 3 Mg/0.5 Mg (3 Ml) Ud) 3 ml NEB RQID KARTHIKEYAN Last Admin: 09/12/17 07:13 Dose: 3 ml Methylprednisolone (Solu-Medrol) 60 mg IVP BID KARTHIKEYAN - Labs Labs: 09/11/17 05:34 09/11/17 05:34 - Constitutional Appears: Non-toxic, No Acute Distress, Chronically Ill - Head Exam Head Exam: ATRAUMATIC - Eye Exam Eye Exam: EOMI, PERRL. absent: Conjunctival injection - ENT Exam ENT Exam: Mucous Membranes Moist - Neck Exam Neck Exam: absent: Lymphadenopathy - Respiratory Exam Respiratory Exam: Decreased Breath Sounds (mild improvement in air entry b/l ), Prolonged Expiratory Phase, Wheezes (diffuse wheezing b/l). absent: Accessory Muscle Use, Clear to Ausculation Bilateral, Rales, Rhonchi, Respiratory Distress - Cardiovascular Exam Cardiovascular Exam: REGULAR RHYTHM, RRR, +S1, +S2. absent: Tachycardia, JVD, Rubs, Murmur - GI/Abdominal Exam GI & Abdominal Exam: Soft, Normal Bowel Sounds. absent: Distended, Firm, Guarding, Rigid, Tenderness, Mass - Extremities Exam Extremities Exam: Normal Capillary Refill, Normal Inspection. absent: Calf Tenderness, Pedal Edema, Tenderness - Neurological Exam Neurological Exam: Alert, Awake, CN II-XII Intact, Oriented x3 - Psychiatric Exam Psychiatric exam: Normal Affect, Normal Mood - Skin Skin Exam: Dry, Intact, Normal Color, Warm Assessment and Plan - Assessment and Plan (Free Text) Assessment: 61 y/o male with PMHx of COPD admitted for Acute COPD exacerbation. Plan: 1) Acute COPD Exacerbation -mild improvement in symptoms today -afebrile -no leukocytosis -c/w with Duo-Nebs Q4H -IV steroids 60mg BID -O2 supplement, keep POX ~92% -follow up AM labs/trend treatment 2) Hx of Hematochezia: -pt reported these symptoms at bedside, chronic -H/H: wnl -denies bloody/melena BM today/yesterday -occult blood pending 3) Diet -regular 4) Prophylaxis -Lovenox 40mg SC QD 5) Code Status -full code
[2017-09-12 07:42] LABS: HEMOGLOBIN 13.6 g/dL (12.0-18.0); MEAN CELL VOLUME 93.9 fl (80.0-94.0); MEAN CORPUSCULAR HEMOGLOBIN 32.1 pg (27.0-31.0); MEAN CORPUSCULAR HGB CONC 34.1 g/dL (33.0-37.0); RBC 4.24 Mil/uL (4.40-5.90); WHITE BLOOD COUNT 9.6 K/uL (4.8-10.8)
[2017-09-12 08:09] LABS: ALB/GLOB RATIO 1.3 (1.0-2.1); ALT/SGPT 24 U/L (21-72); AST/SGOT 37 U/L (17-59); BLOOD UREA NITROGEN 12 mg/dl (9-20); CALCIUM 9.7 mg/dL (8.4-10.2); GFR AFRICAN-AMERICAN > 60; GFR NON-AFRICAN AMERICAN > 60
[2017-09-12] MEDS: MethylPREDNISolone 40 mg Vial IVP SCH ×2 (10:03→17:13)
[2017-09-13 07:52] LABS: HEMOGLOBIN 13.6 g/dL (12.0-18.0); MEAN CELL VOLUME 94.3 fl (80.0-94.0); MEAN CORPUSCULAR HEMOGLOBIN 32.2 pg (27.0-31.0); MEAN CORPUSCULAR HGB CONC 34.1 g/dL (33.0-37.0); RBC 4.21 Mil/uL (4.40-5.90); RED CELL DISTRIBUTION WIDTH 13.9 % (11.5-14.5); WHITE BLOOD COUNT 6.9 K/uL (4.8-10.8)
[2017-09-13 07:53] VITALS: BP 92/62; PULSE 83; RESP 19; TEMP 97.8; O2SAT 94
[2017-09-13] MEDS: Albuterol-Ipratrop 3 mg / 0.5 (3 ml) UD NEB SCH ×2 (08:09→12:06)
[2017-09-13 08:22] LABS: ALB/GLOB RATIO 1.3 (1.0-2.1); ALT/SGPT 26 U/L (21-72); AST/SGOT 32 U/L (17-59); BLOOD UREA NITROGEN 14 mg/dl (9-20); CALCIUM 9.4 mg/dL (8.4-10.2); GFR AFRICAN-AMERICAN > 60; GFR NON-AFRICAN AMERICAN > 60
[2017-09-13] MEDS: MethylPREDNISolone 40 mg Vial IVP SCH (12:16)
--- NOTE | 2017-09-13 13:23 | CP.PCM.DIS ---
Provider - Provider Date of Admission: 09/11/17 13:26 Attending physician: Chava Renee MD Time Spent in preparation of Discharge (in minutes): 35 Diagnosis - Discharge Diagnosis (1) COPD exacerbation Status: Acute Hospital Course - Lab Results Lab Results: Most Recent Lab Values WBC 6.9 K/uL (4.8-10.8) 09/13/17 05:30 RBC 4.21 Mil/uL (4.40-5.90) L 09/13/17 05:30 Hgb 13.6 g/dL (12.0-18.0) 09/13/17 05:30 Hct 39.7 % (35.0-51.0) 09/13/17 05:30 MCV 94.3 fl (80.0-94.0) H 09/13/17 05:30 MCH 32.2 pg (27.0-31.0) H 09/13/17 05:30 MCHC 34.1 g/dL (33.0-37.0) 09/13/17 05:30 RDW 13.9 % (11.5-14.5) 09/13/17 05:30 Plt Count 332 K/uL (130-400) 09/13/17 05:30 MPV 7.6 fl (7.2-11.7) 09/11/17 05:34 Neut % (Auto) 31.6 % (50.0-75.0) L 09/11/17 05:34 Lymph % (Auto) 40.0 % (20.0-40.0) 09/11/17 05:34 [place] % (Auto) 13.9 % (0.0-10.0) H 09/11/17 05:34 Eos % (Auto) 12.0 % (0.0-4.0) H 09/11/17 05:34 Baso % (Auto) 2.5 % (0.0-2.0) H 09/11/17 05:34 Neut # (Auto) 1.7 K/uL (1.8-7.0) L 09/11/17 05:34 Lymph # (Auto) 2.1 K/uL (1.0-4.3) 09/11/17 05:34 [place] # (Auto) 0.7 K/uL (0.0-0.8) 09/11/17 05:34 Eos # (Auto) 0.6 K/uL (0.0-0.7) 09/11/17 05:34 Baso # (Auto) 0.1 K/uL (0.0-0.2) 09/11/17 05:34 pCO2 45 mm/Hg (35-45) 09/11/17 06:40 pO2 78 mm/Hg (80-100) L 09/11/17 06:40 HCO3 24.5 mmol/L (21-28) 09/11/17 06:40 ABG pH 7.36 (7.35-7.45) 09/11/17 06:40 ABG Total CO2 26.8 mmol/L (22-28) 09/11/17 06:40 ABG O2 Saturation 98.3 % (95-98) H 09/11/17 06:40 ABG O2 Content 16.3 ML/dL (15-23) 09/11/17 06:40 ABG Base Excess -0.4 mmol/L (-2.0-3.0) 09/11/17 06:40 ABG Hemoglobin 12.7 g/dL (11.7-17.4) 09/11/17 06:40 ABG Carboxyhemoglobin 5.0 % (0.5-1.5) H 09/11/17 06:40 POC ABG HHb (Measured) 1.6 % (0.0-5.0) 09/11/17 06:40 ABG Methemoglobin 2.7 % (0.0-3.0) 09/11/17 06:40 ABG O2 Capacity 16.6 mL/dL (16-24) 09/11/17 06:40 Otoniel Test Yes 09/11/17 06:40 A-a O2 Difference 15.0 mm/Hg 09/11/17 06:40 Hgb O2 Saturation 90.8 % (95.0-98.0) L 09/11/17 06:40 FiO2 21.0 % 09/11/17 06:40 Sodium 137 mmol/l (132-148) 09/13/17 05:30 Potassium 3.9 MMOL/L (3.6-5.0) 09/13/17 05:30 Chloride 101 mmol/L (98-107) 09/13/17 05:30 Carbon Dioxide 26 mmol/L (22-30) 09/13/17 05:30 Anion Gap 14 (10-20) 09/13/17 05:30 BUN 14 mg/dl (9-20) 09/13/17 05:30 Creatinine 0.6 mg/dl (0.8-1.5) L 09/13/17 05:30 Est GFR ( Amer) > 60 09/13/17 05:30 Est GFR (Non-Af Amer) > 60 09/13/17 05:30 Random Glucose 102 mg/dL (75-110) 09/13/17 05:30 Calcium 9.4 mg/dL (8.4-10.2) 09/13/17 05:30 Total Bilirubin 0.6 mg/dl (0.2-1.3) 09/13/17 05:30 AST 32 U/L (17-59) 09/13/17 05:30 ALT 26 U/L (21-72) 09/13/17 05:30 Alkaline Phosphatase 41 U/L (38-126) 09/13/17 05:30 Troponin I < 0.0120 ng/mL (0.00-0.120) 09/11/17 05:34 NT-Pro-B Natriuret Pep 66.2 pg/ml (0-900) 09/11/17 05:34 Total Protein 7.1 G/DL (6.3-8.2) 09/13/17 05:30 Albumin 4.0 g/dL (3.5-5.0) 09/13/17 05:30 Globulin 3.1 gm/dL (2.2-3.9) 09/13/17 05:30 Albumin/Globulin Ratio 1.3 (1.0-2.1) 09/13/17 05:30 - Hospital Course Hospital Course: 61 y/o male with PMHx of COPD was admitted for acute COPD exacerbation. He denied any worsening cough or sputum production/purulence. He was afebrile, no leukocytosis was appreciated, and CXR was unremarkable. He was treated with IV steroids and around the clock Duo-neb treatments. He improved daily. Steroids were tapered down. After an uneventful hospital stay he was discharged in stable condition. Plan: -c/w Prednisone 40mg PO for 5 days -take inhalers as prescribed -emergency Ventolin inhaler PRN -follow up with [facility] (pt will need Advair/spiriva changed as his insurance does not cover it) -Pulmonology appt at [facility] on October 17, 2017 Discharge Exam - Head Exam Head Exam: ATRAUMATIC, NORMAL INSPECTION - Eye Exam Eye Exam: EOMI Pupil Exam: PERRL - ENT Exam ENT Exam: Mucous Membranes Moist - Respiratory Exam Respiratory Exam: Clear to PA & Lateral, NORMAL BREATHING PATTERN, UNREMARKABLE. absent: Accessory Muscle Use, Decreased Breath Sounds, Rales, Rhonchi, Wheezes, Respiratory Distress, Stridor - Cardiovascular Exam Cardiovascular Exam: REGULAR RHYTHM, RRR, +S1, +S2. absent: Bradycardia, Tachycardia, Gallop, JVD, Rubs, Systolic Murmur - GI/Abdominal Exam GI & Abdominal Exam: Normal Bowel Sounds, Unremarkable - Extremities Exam Extremities exam: normal capillary refill, normal inspection, pedal pulses present - Neurological Exam Neurological exam: Alert, CN II-XII Intact, Oriented x3 - Psychiatric Exam Psychiatric exam: Normal Affect, Normal Mood - Skin Skin Exam: Dry, Intact, Normal Color, Warm Discharge Plan - Discharge Medications Prescriptions: Nicotine 14 mg/24 hr [Nicoderm CQ] 1 patch TD DAILY #42 patch - Follow Up Plan Condition: GOOD Disposition: HOME/ ROUTINE Instructions: Chronic Obstructive Pulmonary Disease (COPD), Including Emphysema Additional Instructions: follow up with primary medical doctor in 1 week take medications as ordered no cigarette smoking follow up with lung doctor as scheduled any worsening shortness of breath or chest pain return to ED Referrals: [facility] [Outside]
--- NOTE | 2017-09-14 11:24 | CARD ---
APPROVED REPORT EKG Measurement Heart [id number] <Conclusion> Normal sinus rhythm Normal ECG
== END 2017-09-13 15:35 | disposition home or self-care (01) | DRG 88 ==
LOC: H.ER 04:47 → H.ERHOLD 08:07 → H.MEDSURG1 09:22 → OBSVTOIN 13:26
PROVIDERS: ADMIT Family Medicine; ATTEND Family Medicine
PROC: 3E0F73Z Introduction of Anti-inflammatory into Respiratory Tract, Via Natural or Artificial Opening (ICD-10-PCS; principal; 2017-09-11)
DX: J44.1 Chronic obstructive pulmonary disease with (acute) exacerbation (principal); J45.40 Moderate persistent asthma, uncomplicated; F12.90 Cannabis use, unspecified, uncomplicated; F10.10 Alcohol abuse, uncomplicated; F17.210 Nicotine dependence, cigarettes, uncomplicated; Z87.01 Personal history of pneumonia (recurrent)

== ENCOUNTER 2017-10-22 16:29 | Observation (INO) | payer MEDICAID ==
[2017-10-22 16:29] VITALS: BMI 20.9
[2017-10-22] MEDS ORDERED: Albuterol-Ipratrop 3 mg / 0.5 (3 ml) UD INH STA ×3 (18:01→18:03)
--- NOTE | 2017-10-22 18:06 | ED PDOC ---
HPI: SOB/CHF/COPD Chief Complaint (Provider): Shortness of breath History Per: Patient History/Exam Limitations: no limitations Onset/Duration Of Symptoms: Days (2) Current Symptoms Are (Timing): Still Present Initiating Event: Exposure To Smoke, Other (PFT) Exacerbating Factor(s): Coughing Current Respiratory Medications: See Home Med List, Albuterol, Steroid Inhaler Severity: Severe Associated Symptoms: Productive Cough (White sputum) - Risk Factors PE Risk Factors: Neg: Extremity Immobilization/Fx, Decreased Mobilty /Activity, Recent Major Surgery <David Mayfield - Last Filed: 10/22/17 19:10> <Liana Walsh - Last Filed: 10/22/17 22:32> Time Seen by Provider: 10/22/17 17:21 Chief Complaint (Nursing): Shortness Of Breath Additional Complaint(s): 61 yo M with pmhx of COPD with frequent exacerbations presents to the ER with SOB. He reports that after getting his PFT 2 days ago, he noticed progressive SOB with white sputum production. He used his meds: Spiriva, Ventolin HFA and Fluticaone/solumedrol combo with only mild relief. He denies recent illness, fever. Denies N/V, hemoptysis. Pmhx: Asthma and COPD Famhx: COPD Surg: R neck cyst Soc: smokes 2-3 cigarettes/day; smokes 3-4 beers per day. occasional use of marijuana NKDA PMD: [facility] Pulm: Dr. Pardo at [facility] (David Mayfield) Supervising Attending Note - Supervising Attending Note The Documented history was done by the: Physician Director Compliance, Attending Physician The documented physical exam was done by the: Physician Director Compliance, Attending Physician The documented procedures were done by the: Physician Director Compliance, Attending Physician - Attestation: I have personally seen and examined this patient.: Yes I have fully participated in the care of the patient.: Yes I have reviewed all pertinent clinical information, including history, physical exam and plan: Yes <Liana Walsh - Last Filed: 10/22/17 22:32> Past Medical History - Medical History PMH: Asthma, COPD, Emphysema, Pneumonia Denies: Chronic Kidney Disease - Surgical History Other surgeries: R neck cyst - Family History Family History: States: Other Other Family History: COPD - Living Arrangements Living Arrangements: With Friends/Others - Social History Current smoker - smoking cessation education provided: Yes (2-3 cigarettes/day with patch) Alcohol: > 2 Drinks/Day (beer) Drugs: Cannabis (smoking) - Immunization History Hx Tetanus Toxoid Vaccination: No Hx Influenza Vaccination: Yes Hx Pneumococcal Vaccination: Yes <David Mayfield - Last Filed: 10/22/17 19:10> <Liana Walsh - Last Filed: 10/22/17 22:32> Vital Signs: Last Vital Signs Temp 98.1 F 10/22/17 16:42 Pulse 94 H 10/22/17 16:42 Resp 16 10/22/17 16:42 BP 113/72 10/22/17 16:42 Pulse Ox 92 L 10/22/17 19:15 - Home Medications Home Medications: Ambulatory Orders Medication Instructions Recorded Albuterol HFA [Ventolin HFA 90 2 puff IH [id number] 08/01/17 mcg/actuation (8 g)] Albuterol 0.083% [Albuterol 0.083% 3 ml IH Q4H PRN 30 Days neb 08/02/17 Inhal Fernanda (2.5 mg/3 ml) UD] Famotidine [Pepcid] 20 mg PO BID #60 tab 08/02/17 Fluticasone/Salmeterol [Airduo 2 puff IH Q12 10/22/17 Respiclick 113-14 Mcg] Tiotropium [Spiriva] 18 mcg IH DAILY 10/22/17 - Allergies Allergies/Adverse Reactions: Allergies Allergy/AdvReac Type Severity Reaction Status Date / Time No Known Allergies Allergy Verified 10/22/17 16:42 Wells Criteria for PE - Wells Criteria for Pulmonary Embolism P.E is #1 Diagnosis, or Equally Likely: No Heart Rate >100: No Immobilization at least 3 days;Surgery previous 4 weeks: No Hemoptysis: No Malignancy w/treatment within 6 months, or palliative: No Total Score: 0 <David Mayfield - Last Filed: 10/22/17 19:10> Review of Systems Respiratory: Positive for: Cough, Shortness of Breath <David Mayfield - Last Filed: 10/22/17 19:10> Physical Exam - Reviewed Nursing Documentation Reviewed: Yes Vital Signs Reviewed: Yes - Physical Exam Appears: Positive for: Uncomfortable Head Exam: Positive for: ATRAUMATIC, NORMAL INSPECTION Skin: Positive for: Warm, Dry Eye Exam: Positive for: EOMI Neck: Positive for: Painless ROM Cardiovascular/Chest: Positive for: Regular Rate, Rhythm. Negative for: Edema, Murmur Respiratory: Positive for: Decreased Breath Sounds, Wheezing (expiratory) Gastrointestinal/Abdominal: Positive for: Normal Exam, Bowel Sounds, Soft. Negative for: Tenderness Neurologic/Psych: Positive for: Alert, keno attendant II-XII, Oriented <David Mayfield - Last Filed: 10/22/17 19:10> - ECG O2 Sat by Pulse Oximetry: 92 <David Mayfield - Last Filed: 10/22/17 19:10> - Laboratory Results Result Diagrams: 10/22/17 21:25 10/22/17 21:25 <Liana Walsh - Last Filed: 10/22/17 22:32> - Progress ED Course And Treament: COPD with SOB X 2 days Plan: ECG, CXR, ABG, Tx: Duoneb stat x 3 doses with peak flow pre and post treatment; solumedrol 125 mg; will continue to monitor SOB and vitals. Case dw Dr. Nico Mayfield MD PGY2 (David Mayfield) Nebulizer Treatments/Peak Flow - Duonebs Number of Bronchodilator Doses given?: 3 - Pre/Post Peak Flow Pre Treatment Peak Flow: 100 Post treatment Peak Flow: 150 - Steroid Treatment Steroid: IV - Clinical Response Clinical Response: Unchanged <Liana Walsh - Last Filed: 10/22/17 22:32> Disposition - Disposition Disposition Time: 19:15 <David Mayfield - Last Filed: 10/22/17 19:10> - Patient ED Disposition Is Patient to be Admitted: Yes Discussed With : Sallie Frey Doctor Will See Patient In The: ED Counseled Patient/Family Regarding: Studies Performed, Diagnosis - Pt Status Changed To: Hospital Disposition Of: Observation - POA Present On Arrival: None <Liana Walsh Last Filed: 10/22/17 22:32> - Clinical Impression Clinical Impression: Shortness of breath, COPD exacerbation - Disposition Condition: FAIR
[2017-10-22] MEDS ORDERED: Albuterol-Ipratrop 3 mg / 0.5 (3 ml) UD ONE (18:16)
[2017-10-22 18:45] LABS: ABG ALLEN TEST YES; ARTERIAL BLOOD GAS HCO3 26.2 mmol/L (21-28); ARTERIAL BLOOD GAS HEMOGLOBIN 14.4 g/dL (11.7-17.4); ARTERIAL BLOOD GAS O2 SAT 94.9 % (95-98); ARTERIAL BLOOD GAS PCO2 41 mm/Hg (35-45); ARTERIAL BLOOD GAS PH 7.42 (7.35-7.45); ARTERIAL BLOOD GAS PO2 67 mm/Hg (80-100); ARTERIAL BLOOD GAS TCO2 27.9 mmol/L (22-28)
--- NOTE | 2017-10-22 21:25 | CP.PCM.HP ---
History of Present Illness - History of Present Illness History of Present Illness: 61 yo,m, PMhx/o COPD with multiples exacerbation, Asthma , smoker presents to Ed c/o SOB started 2 days ago during the night , associated with occs dry cough with occs whitish expectoration . Patient reports SOB is not resolved with his usual rescue inhaler Albuterol, Spiriva and Fluticasone/Salmeterol. Denies increase amount of expectoration or purulent expectoration. Patient reports he had PFT 2 days ago in the morning and started with SOB that night. He denies fever, pleuritic chest pain, palpitation,n,v,d,abd pain, pyrosis, dysuria, hx/ o DVT or PE, calf pain.Reports he was seen by Manager Combination Dr Springer 1 week ago in [facility] and reports no change on his medications. On evaluation in Ed patient AAO x 3 in not acute respiratory distress, able to speak in full sentences. O2 sat on NC 96, on room air x 30 sec 92%.no wheezing detected. PMD: [facility], last visit early August 2017 PMHx: heavy tobacco abuse, COPD, bronchitis ALL: NKDA Meds: Spirva, Advair, Ventolin PsurgHx: neck cyst excision PHospHx: multiple admissions for COPD exac FamilyHx: does not know any medical hx of family SocialHx: >10 ciggs per day for >40 years, daily ETOH abuse, smoke marijuana occs. Next of Kin: Cousin, Alia (as per demographics) Code Status: full code Ed course VS: nl except O2 sat 92 PE: Prolonged expiration.decreased breath sound bilateral. No wheezing, rhonchi in my exam Labs: AVG normal except Po2 67. CBC , BMP pending results. Imaging: EKG: NSR: 85, voltage for LVH.CXR: hyperinflation, increased bronchial markings, no acute infiltrated as per my interpretation Meds: Duoneb x 3, Solumedrol 125 mg IV Present on Admission - Present on Admission Any Indicators Present on Admission: No History of DVT/PE: No History of Uncontrolled Diabetes: No Urinary Catheter: No Review of Systems - Review of Systems All systems: reviewed and no additional remarkable complaints except - Respiratory Respiratory: Cough, Dyspnea Past Patient History - Infectious Disease Hx of Infectious Diseases: None - Tetanus Immunizations Tetanus Immunization: Unknown - Past Medical History & Family History Past Medical History?: Yes - Past Social History Alcohol: > 2 Drinks/Day (beer) Drugs: Cannabis (smoking) - CARDIAC Hx Cardiac Disorders: No - PULMONARY Hx Asthma: Yes Hx Chronic Obstructive Pulmonary Disease (COPD): Yes Hx Emphysema: Yes Hx Pneumonia: Yes - NEUROLOGICAL Hx Neurological Disorder: No - HEENT Hx HEENT Problems: No - RENAL Hx Chronic Kidney Disease: No - ENDOCRINE/METABOLIC Hx Endocrine Disorders: No - INTEGUMENTARY Hx Dermatological Problems: No - MUSCULOSKELETAL/RHEUMATOLOGICAL Hx Falls: Yes - GASTROINTESTINAL Hx Gastrointestinal Disorders: No - PSYCHIATRIC Hx Psychophysiologic Disorder: No Hx Substance Use: Yes (marijuana) - SURGICAL HISTORY Hx Surgeries: Yes (neck cyst right side) Other/Comment: right neck cyst removal 5 years ago - ANESTHESIA Hx Anesthesia: Yes Hx Anesthesia Reactions: No Hx Malignant Hyperthermia: No Meds Allergies/Adverse Reactions: Allergies Allergy/AdvReac Type Severity Reaction Status Date / Time No Known Allergies Allergy Verified 10/22/17 16:42 Physical Exam - Constitutional Appears: Non-toxic, No Acute Distress - Head Exam Head Exam: ATRAUMATIC, NORMOCEPHALIC - Eye Exam Eye Exam: Normal appearance - ENT Exam ENT Exam: Mucous Membranes Moist - Neck Exam Neck exam: Positive for: Normal Inspection - Respiratory Exam Respiratory Exam: Decreased Breath Sounds - Cardiovascular Exam Cardiovascular Exam: REGULAR RHYTHM, +S1, +S2 - GI/Abdominal Exam GI & Abdominal Exam: Normal Bowel Sounds, Soft. absent: Guarding, Rebound, Tenderness - Extremities Exam Extremities exam: Positive for: normal inspection. Negative for: pedal edema - Back Exam Back exam: NORMAL INSPECTION - Neurological Exam Neurological exam: Alert, Oriented x3 - Psychiatric Exam Psychiatric exam: Normal Affect, Normal Mood - Skin Skin Exam: Intact Results - Vital Signs Recent Vital Signs: Last Vital Signs Temp 98.1 F 10/22/17 16:42 Pulse 94 H 10/22/17 16:42 Resp 16 10/22/17 16:42 BP 113/72 10/22/17 16:42 Pulse Ox 92 L 10/22/17 19:15 - Labs Result Diagrams: 10/22/17 21:25 Labs: Laboratory Results - last 24 hr 10/22/17 18:39 pCO2 41 pO2 67 L HCO3 26.2 ABG pH 7.42 ABG Total CO2 27.9 ABG O2 Saturation 94.9 L ABG O2 Content 18.0 ABG Base Excess 1.9 ABG Hemoglobin 14.4 ABG Carboxyhemoglobin 4.0 H POC ABG HHb (Measured) 4.8 ABG Methemoglobin 2.2 ABG O2 Capacity 19.0 Otoniel Test Yes A-a O2 Difference 81.0 Hgb O2 Saturation 89.0 L FiO2 28.0 Assessment & Plan - Assessment and Plan (Free Text) Plan: Assessment/Plan 61 yo,m, PMhx/o COPD with multiples exacerbation, Asthma admitted for COPD acute exacerbation 1)COPD exacerbation -admit medsurg -CXR: hyperinflation, increased bronchial markings, no acute infiltrated as per my interpretation -AVG normal except PO2 67 -s/p Duoneb x 3 Ed and Solumedrol 12mg IV -c/w Solumedrol 60 mg BID -Duoneb inh Q 3h PRN SOB -last PFTs demonstrate a restrictive pattern (Decreased FVC 2.33L, FEV1 <55%, and normal FEV1/FVC). Due to extensive smoking history, ddx includes idiopathic pulmonary fibrosis -f/u CBC,BMP pending results 2)Smoker >10 ciggs per day for >40 years Has tried to quit in the past. Still smoking 2-3 cig/day and occs THC -nicotine patch 3)DVT prophylaxis -Lovenox 40 mg sc daily Status: full code
[2017-10-22] MEDS ORDERED: Albuterol-Ipratrop 3 mg / 0.5 (3 ml) UD INH PRN (21:31)
[2017-10-22 21:45] LABS: BASO % 1.1 % (0.0-2.0); EOS # 0.1 K/uL (0.0-0.7); EOS % 1.2 % (0.0-4.0); HEMOGLOBIN 14.1 g/dL (12.0-18.0); LYMPH # 0.3 K/uL (1.0-4.3); LYMPH % 7.2 % (20.0-40.0); MEAN CELL VOLUME 93.9 fl (80.0-94.0); MEAN CORPUSCULAR HEMOGLOBIN 31.3 pg (27.0-31.0); MEAN CORPUSCULAR HGB CONC 33.4 g/dL (33.0-37.0); MEAN PLATELET VOLUME 7.2 fl (7.2-11.7); MONO # 0.1 K/uL (0.0-0.8); MONO % 1.3 % (0.0-10.0); NEUT # 3.8 K/uL (1.8-7.0); NEUT % 89.2 % (50.0-75.0); NRBC % 0.2 % (0.0-0.0); PLATELET COUNT 366 K/uL (130-400); RED CELL DISTRIBUTION WIDTH 14.1 % (11.5-14.5); WHITE BLOOD COUNT 4.3 K/uL (4.8-10.8)
[2017-10-22 22:06] LABS: BLOOD UREA NITROGEN 9 mg/dl (9-20); CALCIUM 9.3 mg/dL (8.4-10.2); GFR AFRICAN-AMERICAN > 60; GFR NON-AFRICAN AMERICAN > 60
[2017-10-22] MEDS ORDERED: MethylPREDNISolone 40 mg Vial ONE (22:28)
[2017-10-22 23:00] LABS: BANDS 3 % (0-2); EOSINOPHIL 1 % (0-7); LYMPHOCYTE 11 % (20-50); MONOCYTE 3 % (0-10); NEUTROPHIL 82 % (42-75); PLATELET ESTIMATE NORMAL (NORMAL); TOTAL CELLS COUNTED 100; TOXIC GRANULATION PRESENT
[2017-10-23] MEDS ORDERED: Sodium Chloride 3% for Inhalation 4 ML VIAL.NEB IH PRN (03:12)
--- NOTE | 2017-10-23 08:32 | CARD ---
APPROVED REPORT Date of service: 10/22/2017 <Conclusion> Normal sinus rhythm Voltage criteria for left ventricular hypertrophy Abnormal ECG
--- NOTE | 2017-10-23 08:37 | CP.PCM.PN ---
Subjective - Date & Time of Evaluation Date of Evaluation: 10/23/17 Time of Evaluation: 08:00 - Subjective Subjective: Patient seen and evaluated during morning rounds. NAD. Improvement in shortness of breath after Duoneb x 3 and Solumedrol in ED. Currently on NC 3L PRN. Denies any SOb at rest. Reports dry cough but unable to expectorate. Denies any CP, SOB , fever, chills, nausea, vomiting, diarrhea, LE swelling, or urinary symptoms. O2 sat 95% on 3L NC. Objective - Vital Signs/Intake and Output Vital Signs (last 24 hours): Temp Pulse Resp BP Pulse Ox 98 F 79 20 110/81 94 L 10/23/17 08:16 10/23/17 08:16 10/23/17 08:16 10/23/17 08:16 10/23/17 08:16 - Medications Medications: Current Medications Acetaminophen (Tylenol 325mg Tab) 650 mg PO Q6 PRN PRN Reason: Pain, Mild (1-3) Acetaminophen (Tylenol 325mg Tab) 650 mg PO Q6 PRN PRN Reason: Fever >100.4 F Albuterol/Ipratropium (Duoneb 3 Mg/0.5 Mg (3 Ml) Ud) 3 ml INH RQ4 PRN PRN Reason: Shortness of Breath Enoxaparin Sodium (Lovenox) 40 mg SC DAILY [facility] PRN Reason: Protocol Last Admin: 10/23/17 08:28 Dose: 40 mg Famotidine (Pepcid) 20 mg PO BID [facility] Last Admin: 10/23/17 08:29 Dose: 20 mg Ibuprofen (Motrin Tab) 400 mg PO Q6H PRN PRN Reason: Pain, moderate (4-7) Methylprednisolone (Solu-Medrol) 60 mg IV Q12 [facility] Last Admin: 10/23/17 08:32 Dose: 60 mg Nicotine (Nicoderm Cq) 1 patch TD DAILY [facility] - Labs Labs: 10/22/17 21:25 10/22/17 21:25 - Constitutional Appears: Well, Non-toxic, No Acute Distress - Head Exam Head Exam: ATRAUMATIC, NORMAL INSPECTION, NORMOCEPHALIC - Eye Exam Eye Exam: Normal appearance, PERRL - ENT Exam ENT Exam: Mucous Membranes Moist - Respiratory Exam Respiratory Exam: Prolonged Expiratory Phase, Wheezes. absent: Accessory Muscle Use, Chest Wall Tenderness, Rales, Rhonchi, Respiratory Distress - Cardiovascular Exam Cardiovascular Exam: REGULAR RHYTHM, +S1, +S2. absent: Murmur - GI/Abdominal Exam GI & Abdominal Exam: Soft, Normal Bowel Sounds. absent: Guarding, Tenderness - Extremities Exam Extremities Exam: Full ROM. absent: Calf Tenderness, Tenderness - Back Exam Back Exam: NORMAL INSPECTION - Neurological Exam Neurological Exam: Alert, Awake, Oriented x3 - Psychiatric Exam Psychiatric exam: Normal Affect, Normal Mood - Skin Skin Exam: Dry, Intact, Normal Color Assessment and Plan - Assessment and Plan (Free Text) Assessment: 61 yo,m, PMhx/o COPD with multiples exacerbation, Asthma admitted for COPD acute exacerbation Plan: COPD exacerbation -SOB improving, O2 sat 95% -s/p Duoneb x 3 Ed and Solumedrol 12mg IV in ED -CXR: hyperinflation, increased bronchial markings, no acute infiltrated as per my interpretation -Last PFTs demonstrate a restrictive pattern (Decreased FVC 2.33L, FEV1 <55%, and normal FEV1/FVC). Due to extensive smoking history -AVG normal except PO2 67 -EKG: NSR -c/w Solumedrol 60 mg BID -Duoneb inh Q3h PRN SOB -CBC , BMP WNL Tobacco use/Smoking - >10 ciggs per day for >40 years - Has tried to quit in the past. Still smoking 2-3 cig/day and occs THC - Nicotine patch DVT prophylaxis - Lovenox 40 mg sc daily Status: full code
[2017-10-23] MEDS ORDERED: methylPREDNISolone 60 MG in Sodium Chloride 0.9% 50 ML IV SCH (09:00)
[2017-10-23] MEDS ORDERED: Enoxaparin 40 mg Syringe SC SCH (09:00)
--- NOTE | 2017-10-23 10:39 | RAD ---
Date of service: 10/22/2017 HISTORY: COPD, sob COMPARISON: 09/11/2017 FINDINGS: LUNGS: No infiltrate. Pulmonary hyperinflation may indicate emphysema. Please correlate. PLEURA: No significant pleural effusion identified, no pneumothorax apparent. CARDIOVASCULAR: Normal. OSSEOUS STRUCTURES: No significant abnormalities. VISUALIZED UPPER ABDOMEN: Normal. OTHER FINDINGS: None. IMPRESSION: No active disease.
--- NOTE | 2017-10-23 15:55 | CP.PCM.DIS ---
Provider - Provider Date of Admission: 10/22/17 20:56 Attending physician: Cici Avendano MD Time Spent in preparation of Discharge (in minutes): 20 Diagnosis - Discharge Diagnosis (1) COPD exacerbation Status: Acute Hospital Course - Lab Results Lab Results: Most Recent Lab Values WBC 4.3 K/uL (4.8-10.8) L 10/22/17 21:25 RBC 4.50 Mil/uL (4.40-5.90) 10/22/17 21:25 Hgb 14.1 g/dL (12.0-18.0) 10/22/17 21:25 Hct 42.2 % (35.0-51.0) 10/22/17 21:25 MCV 93.9 fl (80.0-94.0) 10/22/17 21:25 MCH 31.3 pg (27.0-31.0) H 10/22/17 21:25 MCHC 33.4 g/dL (33.0-37.0) 10/22/17 21:25 RDW 14.1 % (11.5-14.5) 10/22/17 21:25 Plt Count 366 K/uL (130-400) 10/22/17 21:25 MPV 7.2 fl (7.2-11.7) 10/22/17 21:25 Neut % (Auto) 89.2 % (50.0-75.0) H 10/22/17 21:25 Lymph % (Auto) 7.2 % (20.0-40.0) L 10/22/17 21:25 [place] % (Auto) 1.3 % (0.0-10.0) 10/22/17 21:25 Eos % (Auto) 1.2 % (0.0-4.0) 10/22/17 21:25 Baso % (Auto) 1.1 % (0.0-2.0) 10/22/17 21:25 Neut # (Auto) 3.8 K/uL (1.8-7.0) 10/22/17 21:25 Lymph # (Auto) 0.3 K/uL (1.0-4.3) L 10/22/17 21:25 [place] # (Auto) 0.1 K/uL (0.0-0.8) 10/22/17 21:25 Eos # (Auto) 0.1 K/uL (0.0-0.7) 10/22/17 21:25 Baso # (Auto) 0.0 K/uL (0.0-0.2) 10/22/17 21:25 Neutrophils % (Manual) 82 % (42-75) H 10/22/17 21:25 Band Neutrophils % 3 % (0-2) H 10/22/17 21:25 Lymphocytes % (Manual) 11 % (20-50) L 10/22/17 21:25 Monocytes % (Manual) 3 % (0-10) 10/22/17 21:25 Eosinophils % (Manual) 1 % (0-7) 10/22/17 21:25 Toxic Granulation Present 10/22/17 21:25 Platelet Estimate Normal (NORMAL) 10/22/17 21:25 Macrocytosis (manual) Slight 10/22/17 21:25 pCO2 41 mm/Hg (35-45) 10/22/17 18:39 pO2 67 mm/Hg (80-100) L 10/22/17 18:39 HCO3 26.2 mmol/L (21-28) 10/22/17 18:39 ABG pH 7.42 (7.35-7.45) 10/22/17 18:39 ABG Total CO2 27.9 mmol/L (22-28) 10/22/17 18:39 ABG O2 Saturation 94.9 % (95-98) L 10/22/17 18:39 ABG O2 Content 18.0 ML/dL (15-23) 10/22/17 18:39 ABG Base Excess 1.9 mmol/L (-2.0-3.0) 10/22/17 18:39 ABG Hemoglobin 14.4 g/dL (11.7-17.4) 10/22/17 18:39 ABG Carboxyhemoglobin 4.0 % (0.5-1.5) H 10/22/17 18:39 POC ABG HHb (Measured) 4.8 % (0.0-5.0) 10/22/17 18:39 ABG Methemoglobin 2.2 % (0.0-3.0) 10/22/17 18:39 ABG O2 Capacity 19.0 mL/dL (16-24) 10/22/17 18:39 Otoniel Test Yes 10/22/17 18:39 A-a O2 Difference 81.0 mm/Hg 10/22/17 18:39 Hgb O2 Saturation 89.0 % (95.0-98.0) L 10/22/17 18:39 FiO2 28.0 % 10/22/17 18:39 Sodium 139 mmol/l (132-148) 10/22/17 21:25 Potassium 4.0 MMOL/L (3.6-5.0) 10/22/17 21:25 Chloride 101 mmol/L (98-107) 10/22/17 21:25 Carbon Dioxide 24 mmol/L (22-30) 10/22/17 21:25 Anion Gap 18 (10-20) 10/22/17 21:25 BUN 9 mg/dl (9-20) 10/22/17 21:25 Creatinine 0.7 mg/dl (0.8-1.5) L 10/22/17 21:25 Est GFR ( Amer) > 60 10/22/17 21:25 Est GFR (Non-Af Amer) > 60 10/22/17 21:25 Random Glucose 137 mg/dL (75-110) H 10/22/17 21:25 Calcium 9.3 mg/dL (8.4-10.2) 10/22/17 21:25 - Hospital Course Hospital Course: 61 yo,m, PMhx/o COPD with multiples exacerbation, Asthma , smoker presents to Ed c/o SOB started 2 days ago. Patient evaluated in ED. Dyspnea improved with Duoneb x 3 and IV solumedrol. CXR and EKG with no acute changes. Patient breathing comfortably off of oxygen and saturating well. Patient's symptoms improved with duoneb and solumedol. Patient amendable with discharge home today. Discharged on Prednisone 60 mg x 5 days. Continue with home medications including albuterol inhaler, nebulizer, advair and spiriva. Patient told to schedule F/U appointment with pulmonoloist in 1 week. F/U with [facility] on 10/29/[address] Nash. Discharge Medications New Medications - Prednisine 60 mg PO daily x 5 days Home Medications - Albuterol HFA [Ventolin HFA 90 mcg/actuation (8 g)] 2 puff IH Q6H - Albuterol 0.083% [Albuterol 0.083% Inhal Fernanda (2.5 mg/3 ml) UD] 3 ml IH Q4H PRN 30 Days neb - Famotidine [Pepcid] 20 mg PO BID #60 tab - Fluticasone/Salmeterol [AirduoRespiclick 113-14 Mcg] 2 puff IH Q12 - Tiotropium [Spiriva] 18 mcg IH DAILY - Date & Time of H&P Date of H&P: 10/23/17 Discharge Exam - Head Exam Head Exam: ATRAUMATIC, NORMAL INSPECTION, NORMOCEPHALIC - Eye Exam Eye Exam: EOMI, Normal appearance Pupil Exam: NORMAL ACCOMODATION - ENT Exam ENT Exam: Mucous Membranes Moist - Respiratory Exam Respiratory Exam: Wheezes. absent: Accessory Muscle Use, Chest Wall Tenderness , Decreased Breath Sounds, Prolonged Expiratory Phase, Rales, Rhonchi, Respiratory Distress Additional comments: Patient speaking in full sentences. No respiratory distress. Good air movement. Minimal scattered wheezes. - Cardiovascular Exam Cardiovascular Exam: REGULAR RHYTHM, +S1, +S2. absent: Systolic Murmur - GI/Abdominal Exam GI & Abdominal Exam: Normal Bowel Sounds, Soft. absent: Tenderness - Neurological Exam Neurological exam: Alert, Oriented x3 - Psychiatric Exam Psychiatric exam: Normal Affect, Normal Mood - Skin Skin Exam: Dry, Intact, Normal Color Discharge Plan - Discharge Medications Prescriptions: predniSONE [predniSONE Tab] 60 mg PO DAILY 5 Days #5 tab - Follow Up Plan Condition: FAIR Disposition: HOME/ ROUTINE Instructions: Quitting Smoking for Older Adults, Exacerbation of COPD Additional Instructions: ER precautions given. Follow up with [facility] with Dr. Nash on 10/29/17 at 11.20. Follow up with [facility] in 1 week. Referrals: [facility] [place] [Outside] Chava Renee MD [Family Provider] -
[2017-10-23 16:25] VITALS: BP 112/74; PULSE 75; RESP 18; TEMP 98.3; O2SAT 97
== END 2017-10-23 17:38 | disposition home or self-care (01) ==
LOC: H.ER 16:29 → H.ERHOLD 20:56 → H.MEDSURG1 22:48
PROVIDERS: ADMIT Family Medicine Geriatric Medicine; ATTEND Family Medicine Geriatric Medicine
DX: J44.1 Chronic obstructive pulmonary disease with (acute) exacerbation (principal); F12.90 Cannabis use, unspecified, uncomplicated; F10.10 Alcohol abuse, uncomplicated; F17.210 Nicotine dependence, cigarettes, uncomplicated; Z87.01 Personal history of pneumonia (recurrent)
CPT/HCPCS: 31720; 36600; 71045; 80048; 82803; 85025; 87070; 93005; 94640; 96372; 96374; 96376; 99285; G0378; J1650; J2930

== ENCOUNTER 2017-11-04 19:49 | Observation (INO) | payer MEDICAID ==
[2017-11-04 19:50] VITALS: BMI 20.9
[2017-11-04] MEDS ORDERED: Albuterol-Ipratrop 3 mg / 0.5 (3 ml) UD INH STA (20:09)
[2017-11-04 20:51] LABS: BASO # 0.1 K/uL (0.0-0.2); BASO % 0.6 % (0.0-2.0); EOS # 0.1 K/uL (0.0-0.7); EOS % 0.5 % (0.0-4.0); LYMPH # 1.2 K/uL (1.0-4.3); MEAN CELL VOLUME 93.6 fl (80.0-94.0); MEAN CORPUSCULAR HEMOGLOBIN 31.9 pg (27.0-31.0); MEAN PLATELET VOLUME 7.4 fl (7.2-11.7); MONO # 1.3 K/uL (0.0-0.8); MONO % 10.5 % (0.0-10.0); NEUT # 9.5 K/uL (1.8-7.0); NEUT % 78.4 % (50.0-75.0); NRBC % 0.1 % (0.0-0.0); RBC 4.4 Mil/uL (4.40-5.90); RED CELL DISTRIBUTION WIDTH 13.5 % (11.5-14.5); WHITE BLOOD COUNT 12.1 K/uL (4.8-10.8)
[2017-11-04 21:07] LABS: ALB/GLOB RATIO 1.3 (1.0-2.1); ALBUMIN 4.2 g/dL (3.5-5.0); ALT/SGPT 22 U/L (21-72); AST/SGOT 24 U/L (17-59); BLOOD UREA NITROGEN 7 mg/dl (9-20); CALCIUM 9.2 mg/dL (8.4-10.2); GFR NON-AFRICAN AMERICAN > 60
[2017-11-04 21:13] LABS: B-TYPE NATRIURETIC PEPTIDE 51.1 pg/ml (0-900)
--- NOTE | 2017-11-04 21:39 | ED PDOC ---
HPI: SOB/CHF/COPD Time Seen by Provider: 11/04/17 20:07 Chief Complaint (Nursing): Shortness Of Breath Chief Complaint (Provider): Shortness of breath History Per: Patient History/Exam Limitations: no limitations Onset/Duration Of Symptoms: Days (2) Current Symptoms Are (Timing): Still Present Associated Symptoms: denies: Chest Pain, Bloody Cough, Productive Cough, Ankle/ Leg Swelling Additional History Per: Patient Additional Complaint(s): 61yo male, history of COPD, comes to ER for evaluation of shortness of breath x 2 days. Patient reports shortness of breath and wheezing and states he has been suing his nebulizer treatment with no relief of symptoms. He also reports associated chest tightness and a dry cough. Patient denies any fever, chills, weakness, leg swelling and offers no additional medical complaints. PMD: Clinic Past Medical History Reviewed: Historical Data, Nursing Documentation, Vital Signs Vital Signs: Last Vital Signs Temp 98.6 F 11/04/17 20:02 Pulse 104 H 11/04/17 20:02 Resp 25 H 11/04/17 21:29 BP 98/60 L 11/04/17 20:02 Pulse Ox 94 L 11/04/17 21:45 - Medical History PMH: Asthma, COPD, Emphysema, Pneumonia Denies: Chronic Kidney Disease - Surgical History Surgical History: No Surg Hx - Family History Family History: States: No Known Family Hx - Social History Current smoker - smoking cessation education provided: Yes Alcohol: None Drugs: Denies - Immunization History Hx Tetanus Toxoid Vaccination: No Hx Influenza Vaccination: Yes Hx Pneumococcal Vaccination: Yes - Home Medications Home Medications: Ambulatory Orders Medication Instructions Recorded Albuterol HFA [Ventolin HFA 90 2 puff IH [id number] 08/01/17 mcg/actuation (8 g)] Albuterol 0.083% [Albuterol 0.083% 3 ml IH Q4H PRN 30 Days neb 08/02/17 Inhal Fernanda (2.5 mg/3 ml) UD] Famotidine [Pepcid] 20 mg PO BID #60 tab 08/02/17 Fluticasone/Salmeterol [Airduo 2 puff IH Q12 10/22/17 Respiclick 113-14 Mcg] Tiotropium [Spiriva] 18 mcg IH DAILY 10/22/17 Albuterol/Ipratropium [Duoneb 3 3 ml INH RQ4 PRN neb 10/23/17 mg/0.5 mg (3 ml) UD] predniSONE [predniSONE Tab] 60 mg PO DAILY 5 Days #5 tab 10/23/17 - Allergies Allergies/Adverse Reactions: Allergies Allergy/AdvReac Type Severity Reaction Status Date / Time No Known Allergies Allergy Verified 11/04/17 20:02 Review of Systems ROS Statement: Except As Marked, All Systems Reviewed And Found Negative Constitutional: Negative for: Fever, Chills Cardiovascular: Positive for: Other (chest tightness) Respiratory: Positive for: Cough, Shortness of Breath. Negative for: Sputum Physical Exam - Reviewed Nursing Documentation Reviewed: Yes Vital Signs Reviewed: Yes - Physical Exam Appears: Positive for: Non-toxic, In Acute Distress (moderate respiratory distress) Head Exam: Positive for: ATRAUMATIC, NORMAL INSPECTION, NORMOCEPHALIC Skin: Positive for: Normal Color Eye Exam: Positive for: Normal appearance Neck: Positive for: Normal, Supple Cardiovascular/Chest: Positive for: Regular Rate, Rhythm Respiratory: Positive for: Decreased Breath Sounds (decreased air entry), Wheezing (expiratory), Respiratory Distress, Other (+ supraclavicular and intercostal retractions) Gastrointestinal/Abdominal: Positive for: Normal Exam, Soft. Negative for: Tenderness Back: Positive for: Normal Inspection Extremity: Positive for: Normal ROM. Negative for: Pedal Edema Neurologic/Psych: Positive for: Alert, Oriented. Negative for: Motor/Sensory Deficits - Laboratory Results Result Diagrams: 11/04/17 20:42 11/04/17 20:42 - ECG O2 Sat by Pulse Oximetry: 94 Pulse Ox Interpretation: Abnormal Medical Decision Making Medical Decision Making: Impression: 61yo male with COPD exacerbation Plan: -- Labs -- EKG -- Chest x-ray -- Duoneb 9ml INH -- Solumedrol 125mg IVP -- Mag-sulfate 1gm IV Scribe Attestation: Documented by Tiffany Romano, acting as a scribe for Bigg Bangura MD. Provider Scribe Attestation: All medical record entries made by the Scribe were at my direction and personally dictated by me. I have reviewed the chart and agree that the record accurately reflects my personal performance of the history, physical exam, medical decision making, and the department course for this patient. I have also personally directed, reviewed, and agree with the discharge instructions and disposition. Time: 2315 -- Labs reviewed and demonstrate no clinically significant abnormalities. -- CXR results demonstrate chronic changes related to COPD including hyperinflation. No infiltrate or pneumonia noted. -- Patient reports of modest improvement of symptoms. Given history, patient will be hospitalized for observation with a diagnosis of COPD exacerbation. Patient referred to Dr. Parker, [facility] resident. Scribe Attestation: Documented by Teetee Richards acting as a scribe for Bigg Bangura MD. Provider Scribe Attestation: All medical record entries made by the Scribe were at my direction and personally dictated by me. I have reviewed the chart and agree that the record accurately reflects my personal performance of the history, physical exam, medical decision making, and the department course for this patient. I have also personally directed, reviewed, and agree with the discharge instructions and disposition. Disposition - Clinical Impression Clinical Impression: COPD exacerbation - Patient ED Disposition Is Patient to be Admitted: Yes - Disposition Disposition Time: 23:20 Condition: FAIR - Pt Status Changed To: Hospital Disposition Of: Observation
[2017-11-04] MEDS: Magnesium Sulfate 1 GM in Dextrose 5% In Water 100 ML IV SCH ×2 (21:40→22:29)
--- NOTE | 2017-11-05 00:10 | CP.PCM.HP ---
<Sallie Frey - Last Filed: 11/05/17 01:38> History of Present Illness - History of Present Illness History of Present Illness: 61 yo,m, PMhx/o COPD with multiples exacerbation and multiples admissions, Asthma , smoker presents to Ed c/o SOB started 2 days ago associated with chest tightness, wheezing, and productive clear expectoration that is mild yellowish. Patient reports SOB is not resolved with his usual rescue inhaler Albuterol pump and Albuterol machine. . He denies fever, pleuritic chest pain , palpitation,n,v,d,abd pain, pyrosis, dysuria, hx/o DVT or PE, calf pain. Reports using a pump yellow/white color ( it could be Airdoo fluticasone/ Salmeterol) but not Spiriva due to insurance does not cover. Patient was recently admitted 2 weeks ago and had f/u in clinic after discharge. As per patient he continues smoking and he saw continuous process machine operator 10/28/17 (Dr. Harris, [facility] [phone]) On evaluation in Ed patient AAO x 3 with mild respiratory distress, able to speak in full sentences. O2 sat on NC 96 after duoneb and sulfate mg. Patient brings with him albuterol pum, does not recall name of the other pump. PMD: [facility].last seen Dr Nash 10/29/17 PMHx: heavy tobacco abuse, COPD, bronchitis ALL: NKDA Meds: Spirva?, Ventolin PsurgHx: neck cyst excision PHospHx: multiple admissions for COPD exac FamilyHx: does not know any medical hx of family SocialHx: >10 ciggs per day for >40 years, daily ETOH abuse, smoke marijuana occs. Next of Kin: Cousin, Alia (as per demographics) Code Status: full code Ed course VS: HR: 104 RR: 25 BP: 98/60 O2 sat 94 PE: Prolonged expiration.decreased breath sound bilateral. No wheezing, rhonchi , scattered rales bibasal Labs:. CBC: WBC: 12.1 . Eusinophils nl. BMP :CO2 nl Imaging: EKG: NSR: 89, CXR: hyperinflation, increased bronchial markings, no acute infiltrated as per my interpretation Meds: Duoneb x 3, Solumedrol 125 mg IV, Mg sulfate 1 g Present on Admission - Present on Admission Any Indicators Present on Admission: No History of DVT/PE: No History of Uncontrolled Diabetes: No Urinary Catheter: No Decubitus Ulcer Present: No Review of Systems - Review of Systems All systems: reviewed and no additional remarkable complaints except - Respiratory Respiratory: Cough, Dyspnea, Wheezing Past Patient History - Infectious Disease Hx of Infectious Diseases: None - Tetanus Immunizations Tetanus Immunization: Unknown - Past Medical History & Family History Past Medical History?: Yes - Past Social History Alcohol: None Drugs: Denies - CARDIAC Hx Cardiac Disorders: No - PULMONARY Hx Asthma: Yes Hx Chronic Obstructive Pulmonary Disease (COPD): Yes Hx Emphysema: Yes Hx Pneumonia: Yes - NEUROLOGICAL Hx Neurological Disorder: No - HEENT Hx HEENT Problems: Yes Other/Comment: uses eye glasses - RENAL Hx Chronic Kidney Disease: No - ENDOCRINE/METABOLIC Hx Endocrine Disorders: No - INTEGUMENTARY Hx Dermatological Problems: No - MUSCULOSKELETAL/RHEUMATOLOGICAL Hx Musculoskeletal Disorders: No Hx Falls: No - GASTROINTESTINAL Hx Gastrointestinal Disorders: No - PSYCHIATRIC Hx Psychophysiologic Disorder: No Hx Substance Use: No - SURGICAL HISTORY Hx Surgeries: Yes (neck cyst right side) Other/Comment: right neck cyst removal 5 years ago - ANESTHESIA Hx Anesthesia: Yes Hx Anesthesia Reactions: No Hx Malignant Hyperthermia: No Meds Allergies/Adverse Reactions: Allergies Allergy/AdvReac Type Severity Reaction Status Date / Time No Known Allergies Allergy Verified 11/04/17 20:02 Physical Exam - Constitutional Appears: No Acute Distress - Head Exam Head Exam: ATRAUMATIC, NORMOCEPHALIC - Eye Exam Eye Exam: Normal appearance - ENT Exam ENT Exam: Mucous Membranes Moist - Respiratory Exam Respiratory Exam: Decreased Breath Sounds, Prolonged Expiratory Phase, Rales. absent: Rhonchi, Wheezes - Cardiovascular Exam Cardiovascular Exam: REGULAR RHYTHM, +S1, +S2 - GI/Abdominal Exam GI & Abdominal Exam: Normal Bowel Sounds, Soft. absent: Tenderness - Extremities Exam Extremities exam: Positive for: normal inspection. Negative for: pedal edema - Back Exam Back exam: NORMAL INSPECTION - Neurological Exam Neurological exam: Alert, Oriented x3 - Psychiatric Exam Psychiatric exam: Normal Affect, Normal Mood - Skin Skin Exam: Intact Results - Vital Signs Recent Vital Signs: Last Vital Signs Temp 97.9 F 11/05/17 00:05 Pulse 68 11/05/17 00:05 Resp 21 11/05/17 00:05 BP 117/79 11/05/17 00:05 Pulse Ox 97 11/05/17 00:05 - Labs Result Diagrams: 11/04/17 20:42 11/04/17 20:42 Labs: Laboratory Results - last 24 hr 11/04/17 11/04/17 20:42 20:42 WBC 12.1 H D RBC 4.40 Hgb 14.0 Hct 41.2 MCV 93.6 MCH 31.9 H MCHC 34.0 RDW 13.5 Plt Count 332 MPV 7.4 Neut % (Auto) 78.4 H Lymph % (Auto) 10.0 L [place] % (Auto) 10.5 H Eos % (Auto) 0.5 Baso % (Auto) 0.6 Neut # (Auto) 9.5 H Lymph # (Auto) 1.2 [place] # (Auto) 1.3 H Eos # (Auto) 0.1 Baso # (Auto) 0.1 Sodium 134 Potassium 3.7 Chloride 97 L Carbon Dioxide 26 Anion Gap 15 BUN 7 L Creatinine 0.5 L Est GFR ( Amer) > 60 Est GFR (Non-Af Amer) > 60 Random Glucose 88 Calcium 9.2 Total Bilirubin 0.9 AST 24 ALT 22 Alkaline Phosphatase 65 Troponin I < 0.0120 NT-Pro-B Natriuret Pep 51.1 Total Protein 7.3 Albumin 4.2 Globulin 3.1 Albumin/Globulin Ratio 1.3 Assessment & Plan - Assessment and Plan (Free Text) Plan: Assessment/Plan 61 yo,m, PMhx/o COPD with multiples exacerbation, Asthma admitted for COPD acute exacerbation 1)COPD exacerbation -admit medsurg -CXR: hyperinflation, increased bronchial markings, no acute infiltrated as per my interpretation -s/p Duoneb Ed, Solumedrol 125mg IV,Mg sulfate -c/w Solumedrol 60 mg BID -Duoneb inh Q 3h PRN SOB -last PFTs demonstrate a restrictive pattern (Decreased FVC 2.33L, FEV1 <55%, and normal FEV1/FVC). Due to extensive smoking history, ddx includes idiopathic pulmonary fibrosis -f/u CBC,BMP pending results 2)Smoker >10 ciggs per day for >40 years Has tried to quit in the past. Still smoking 2-3 cig/day and occs THC -nicotine patch 3)DVT prophylaxis -Lovenox 40 mg sc daily Status: full code <Yared Ramachandran - Last Filed: 11/05/17 03:23> Results - Vital Signs Recent Vital Signs: Last Vital Signs Temp 97.7 F 11/05/17 01:17 Pulse 81 11/05/17 01:17 Resp 18 11/05/17 01:17 BP 110/69 11/05/17 01:17 Pulse Ox 94 L 11/05/17 01:17 - Labs Result Diagrams: 11/04/17 20:42 11/04/17 20:42 Labs: Laboratory Results - last 24 hr 11/04/17 11/04/17 20:42 20:42 WBC 12.1 H D RBC 4.40 Hgb 14.0 Hct 41.2 MCV 93.6 MCH 31.9 H MCHC 34.0 RDW 13.5 Plt Count 332 MPV 7.4 Neut % (Auto) 78.4 H Lymph % (Auto) 10.0 L [place] % (Auto) 10.5 H Eos % (Auto) 0.5 Baso % (Auto) 0.6 Neut # (Auto) 9.5 H Lymph # (Auto) 1.2 [place] # (Auto) 1.3 H Eos # (Auto) 0.1 Baso # (Auto) 0.1 Sodium 134 Potassium 3.7 Chloride 97 L Carbon Dioxide 26 Anion Gap 15 BUN 7 L Creatinine 0.5 L Est GFR ( Amer) > 60 Est GFR (Non-Af Amer) > 60 Random Glucose 88 Calcium 9.2 Total Bilirubin 0.9 AST 24 ALT 22 Alkaline Phosphatase 65 Troponin I < 0.0120 NT-Pro-B Natriuret Pep 51.1 Total Protein 7.3 Albumin 4.2 Globulin 3.1 Albumin/Globulin Ratio 1.3 Attending/Attestation - Attestation I have personally seen and examined this patient.: Yes I have fully participated in the care of the patient.: Yes I have reviewed all pertinent clinical information: Yes Notes (Text): 11/05/17 03:12 I have seen and examined and discussed this patient with Dr Frey. I agree with his assessment and plan. this is a 61 years old mal with hx of COPD, last admitted on 10/22/17 and discharged on 10/23/17 with dx of COPD exacerbation. He now comes with 2 days of SOB and cough with no relief from his home medications. A&P #. COPD exacerbation - The patient received Duoneb X3 with Magnesium and methylprednisolone in the ED, and placed on Observation because of persistent SOB. - Continue Duoneb Q4H and PRN Q2h - Methylprednisolone - Advair - Mucinex - O2 #. Nicotine Addiction - Nicotine patch #. Daily Alcohol - Thiamine/Folic acid Yared Ramachandran MD Hospitalist
[2017-11-05] MEDS ORDERED: Sodium Chloride 3% for Inhalation 4 ML VIAL.NEB IH PRN (00:23)
[2017-11-05] MEDS ORDERED: Albuterol-Ipratrop 3 mg / 0.5 (3 ml) UD INH PRN (03:27)
[2017-11-05] MEDS: Albuterol-Ipratrop 3 mg / 0.5 (3 ml) UD INH SCH ×5 (04:40→19:21)
[2017-11-05 06:39] LABS: BASO % 0.3 % (0.0-2.0); HEMOGLOBIN 14.3 g/dL (12.0-18.0); LYMPH # 0.3 K/uL (1.0-4.3); LYMPH % 4.5 % (20.0-40.0); MEAN CELL VOLUME 93.4 fl (80.0-94.0); MEAN CORPUSCULAR HEMOGLOBIN 32.1 pg (27.0-31.0); MEAN CORPUSCULAR HGB CONC 34.4 g/dL (33.0-37.0); MONO # 0.1 K/uL (0.0-0.8); MONO % 1.7 % (0.0-10.0); NEUT # 6.4 K/uL (1.8-7.0); NEUT % 93.5 % (50.0-75.0); NRBC % 0.2 % (0.0-0.0); PLATELET COUNT 354 K/uL (130-400); RBC 4.46 Mil/uL (4.40-5.90); RED CELL DISTRIBUTION WIDTH 13.4 % (11.5-14.5); WHITE BLOOD COUNT 6.9 K/uL (4.8-10.8)
[2017-11-05 07:02] LABS: ALB/GLOB RATIO 1.3 (1.0-2.1); ALBUMIN 4.1 g/dL (3.5-5.0); ALT/SGPT 16 U/L (21-72); AST/SGOT 17 U/L (17-59); BLOOD UREA NITROGEN 13 mg/dl (9-20); CALCIUM 9.2 mg/dL (8.4-10.2); GFR NON-AFRICAN AMERICAN > 60
--- NOTE | 2017-11-05 08:37 | RAD ---
Date of service: 11/04/2017 HISTORY: chest pain COMPARISON: No prior. FINDINGS: LUNGS: The lungs are hyperinflated and there is peribronchial thickening with chronic changes in both lungs. There is airspace disease in the right lung base. No focal consolidation. PLEURA: No significant pleural effusion identified, no pneumothorax apparent. CARDIOVASCULAR: Normal. OSSEOUS STRUCTURES: No significant abnormalities. VISUALIZED UPPER ABDOMEN: Normal. OTHER FINDINGS: None. IMPRESSION: Airspace disease in the right lung base may represent subsegmental atelectasis however superimposed pneumonia cannot be excluded. Follow-up after medical management is recommended to ensure complete resolution. COPD.
[2017-11-05] MEDS: Enoxaparin 40 mg Syringe SC SCH (08:47)
[2017-11-05] MEDS: guaiFENesin 600 mg ER Tab PO SCH ×2 (08:48→20:02)
--- NOTE | 2017-11-05 08:48 | CARD ---
APPROVED REPORT Date of service: 11/04/2017 <Conclusion> Normal sinus rhythm Normal ECG
[2017-11-05] MEDS ORDERED: methylPREDNISolone 60 MG in Sodium Chloride 0.9% 50 ML IV SCH (09:00)
[2017-11-05 12:33] LABS: BANDS 1 % (0-2); LYMPHOCYTE 7 % (20-50); MONOCYTE 3 % (0-10); NEUTROPHIL 89 % (42-75); TOTAL CELLS COUNTED 100
[2017-11-05 12:34] LABS: PLATELET ESTIMATE NORMAL (NORMAL)
[2017-11-06 00:28] VITALS: O2SAT 96
[2017-11-06] MEDS: Albuterol-Ipratrop 3 mg / 0.5 (3 ml) UD INH SCH ×4 (00:28→11:17)
[2017-11-06 08:20] VITALS: BP 106/72; PULSE 75; RESP 20; TEMP 97.3
[2017-11-06] MEDS: guaiFENesin 600 mg ER Tab PO SCH (08:37)
[2017-11-06] MEDS: Enoxaparin 40 mg Syringe SC SCH (08:37)
--- NOTE | 2017-11-06 11:02 | CP.PCM.DIS ---
<Sofiya Fernández - Last Filed: 11/06/17 11:51> Provider - Provider Date of Admission: 11/04/17 23:15 Attending physician: Yared Ramachandran Time Spent in preparation of Discharge (in minutes): 35 Diagnosis - Discharge Diagnosis (1) COPD exacerbation Status: Acute Comment: Continue with Zithromax for 3 days. Medications sent to pharmacy. patient had duonebs/albuterol nebs at home. Prednisone 20mg for 5 days. Hospital Course - Lab Results Lab Results: Most Recent Lab Values WBC 6.9 K/uL (4.8-10.8) 11/05/17 06:10 RBC 4.46 Mil/uL (4.40-5.90) 11/05/17 06:10 Hgb 14.3 g/dL (12.0-18.0) 11/05/17 06:10 Hct 41.7 % (35.0-51.0) 11/05/17 06:10 MCV 93.4 fl (80.0-94.0) 11/05/17 06:10 MCH 32.1 pg (27.0-31.0) H 11/05/17 06:10 MCHC 34.4 g/dL (33.0-37.0) 11/05/17 06:10 RDW 13.4 % (11.5-14.5) 11/05/17 06:10 Plt Count 354 K/uL (130-400) 11/05/17 06:10 MPV 7.0 fl (7.2-11.7) L 11/05/17 06:10 Neut % (Auto) 93.5 % (50.0-75.0) H 11/05/17 06:10 Lymph % (Auto) 4.5 % (20.0-40.0) L 11/05/17 06:10 [place] % (Auto) 1.7 % (0.0-10.0) 11/05/17 06:10 Eos % (Auto) 0.0 % (0.0-4.0) 11/05/17 06:10 Baso % (Auto) 0.3 % (0.0-2.0) 11/05/17 06:10 Neut # (Auto) 6.4 K/uL (1.8-7.0) 11/05/17 06:10 Lymph # (Auto) 0.3 K/uL (1.0-4.3) L 11/05/17 06:10 [place] # (Auto) 0.1 K/uL (0.0-0.8) 11/05/17 06:10 Eos # (Auto) 0.0 K/uL (0.0-0.7) 11/05/17 06:10 Baso # (Auto) 0.0 K/uL (0.0-0.2) 11/05/17 06:10 Neutrophils % (Manual) 89 % (42-75) H 11/05/17 06:10 Band Neutrophils % 1 % (0-2) 11/05/17 06:10 Lymphocytes % (Manual) 7 % (20-50) L 11/05/17 06:10 Monocytes % (Manual) 3 % (0-10) 11/05/17 06:10 Platelet Estimate Normal (NORMAL) 11/05/17 06:10 RBC Morphology Normal (NORMAL) 11/05/17 06:10 Sodium 135 mmol/l (132-148) 11/05/17 06:10 Potassium 4.2 MMOL/L (3.6-5.0) 11/05/17 06:10 Chloride 101 mmol/L (98-107) 11/05/17 06:10 Carbon Dioxide 25 mmol/L (22-30) 11/05/17 06:10 Anion Gap 13 (10-20) 11/05/17 06:10 BUN 13 mg/dl (9-20) 11/05/17 06:10 Creatinine 0.5 mg/dl (0.8-1.5) L 11/05/17 06:10 Est GFR ( Amer) > 60 11/05/17 06:10 Est GFR (Non-Af Amer) > 60 11/05/17 06:10 Random Glucose 150 mg/dL (75-110) H 11/05/17 06:10 Calcium 9.2 mg/dL (8.4-10.2) 11/05/17 06:10 Total Bilirubin 1.0 mg/dl (0.2-1.3) 11/05/17 06:10 AST 17 U/L (17-59) D 11/05/17 06:10 ALT 16 U/L (21-72) L D 11/05/17 06:10 Alkaline Phosphatase 66 U/L (38-126) 11/05/17 06:10 Troponin I < 0.0120 ng/mL (0.00-0.120) 11/04/17 20:42 NT-Pro-B Natriuret Pep 51.1 pg/ml (0-900) 11/04/17 20:42 Total Protein 7.3 G/DL (6.3-8.2) 11/05/17 06:10 Albumin 4.1 g/dL (3.5-5.0) 11/05/17 06:10 Globulin 3.1 gm/dL (2.2-3.9) 11/05/17 06:10 Albumin/Globulin Ratio 1.3 (1.0-2.1) 11/05/17 06:10 - Hospital Course Hospital Course: 61 yo,m, PMhx/o COPD/Asthma admitted for acute COPD exacerbation. Patient started on azithromycin that will be continued upon discharge. Treated with IV solumedrol 60mg q8 and scheduled duonebs. This morning he is breathing more comfortably. Patient walked with pulse ox without desaturating. Smoking cessation d/w patient. He will follow up with curriculum writer after discharge, Dr. Harris. Follow up with [facility] within next week. New medications: Prednisone 20mg for 5 days. Azithromycin 250mg x 3 days Albuterol/spiriva/Airduo respiclick sent to pharmacy Discharge Exam - Head Exam Head Exam: ATRAUMATIC, NORMOCEPHALIC - Eye Exam Eye Exam: Normal appearance - Respiratory Exam Respiratory Exam: Decreased Breath Sounds (bilaterally throughout), Wheezes ( scattered wheezes, minimal). absent: Accessory Muscle Use, Chest Wall Tenderness, Rales, Rhonchi, Respiratory Distress - Cardiovascular Exam Cardiovascular Exam: REGULAR RHYTHM, +S1, +S2 - GI/Abdominal Exam GI & Abdominal Exam: Unremarkable - Extremities Exam Extremities exam: normal inspection - Neurological Exam Neurological exam: Alert, CN II-XII Intact, Reflexes Normal - Skin Skin Exam: Dry, Intact, Normal Color, Warm Discharge Plan - Discharge Medications Prescriptions: Albuterol 0.083% [Albuterol 0.083% Inhal Fernanda (2.5 mg/3 ml) UD] 3 ml IH Q4H PRN 30 Days neb PRN Reason: Shortness Of Breath Albuterol HFA [Ventolin HFA 90 mcg/actuation (8 g)] 2 puff IH Q4 #1 inhaler Albuterol/Ipratropium [Duoneb 3 mg/0.5 mg (3 ml) UD] 3 ml INH RQ4 PRN 5 Days neb PRN Reason: Shortness Of Breath Azithromycin [Z-Anastacio] 250 mg PO DAILY #4 tab Azithromycin [Zithromax] 250 mg PO DAILY 3 Days tab Fluticasone/Salmeterol [Airduo Respiclick 113-14 Mcg] 2 puff IH Q12 #1 aer.pow.ba Tiotropium [Spiriva] 18 mcg IH DAILY #1 cap predniSONE [predniSONE Tab] 20 mg PO DAILY 5 Days #5 tab - Follow Up Plan Condition: FAIR Disposition: HOME/ ROUTINE Instructions: Exacerbation of COPD (DC) Additional Instructions: follow up with primary MD 1 week Referrals: [facility] [place] [Outside] Beth Nash MD [Family Provider] - <Britta Fry - Last Filed: 11/06/17 18:15> Provider - Provider Date of Admission: 11/04/17 23:15 Attending physician: Yared Ramachandran [facility] Course - Lab Results Lab Results: Micro Results 11/05/17 17:50 Sputum Sputum Culture - Preliminary Gram Positive Cocci Most Recent Lab Values WBC 6.9 K/uL (4.8-10.8) 11/05/17 06:10 RBC 4.46 Mil/uL (4.40-5.90) 11/05/17 06:10 Hgb 14.3 g/dL (12.0-18.0) 11/05/17 06:10 Hct 41.7 % (35.0-51.0) 11/05/17 06:10 MCV 93.4 fl (80.0-94.0) 11/05/17 06:10 MCH 32.1 pg (27.0-31.0) H 11/05/17 06:10 MCHC 34.4 g/dL (33.0-37.0) 11/05/17 06:10 RDW 13.4 % (11.5-14.5) 11/05/17 06:10 Plt Count 354 K/uL (130-400) 11/05/17 06:10 MPV 7.0 fl (7.2-11.7) L 11/05/17 06:10 Neut % (Auto) 93.5 % (50.0-75.0) H 11/05/17 06:10 Lymph % (Auto) 4.5 % (20.0-40.0) L 11/05/17 06:10 [place] % (Auto) 1.7 % (0.0-10.0) 11/05/17 06:10 Eos % (Auto) 0.0 % (0.0-4.0) 11/05/17 06:10 Baso % (Auto) 0.3 % (0.0-2.0) 11/05/17 06:10 Neut # (Auto) 6.4 K/uL (1.8-7.0) 11/05/17 06:10 Lymph # (Auto) 0.3 K/uL (1.0-4.3) L 11/05/17 06:10 [place] # (Auto) 0.1 K/uL (0.0-0.8) 11/05/17 06:10 Eos # (Auto) 0.0 K/uL (0.0-0.7) 11/05/17 06:10 Baso # (Auto) 0.0 K/uL (0.0-0.2) 11/05/17 06:10 Neutrophils % (Manual) 89 % (42-75) H 11/05/17 06:10 Band Neutrophils % 1 % (0-2) 11/05/17 06:10 Lymphocytes % (Manual) 7 % (20-50) L 11/05/17 06:10 Monocytes % (Manual) 3 % (0-10) 11/05/17 06:10 Platelet Estimate Normal (NORMAL) 11/05/17 06:10 RBC Morphology Normal (NORMAL) 11/05/17 06:10 Sodium 135 mmol/l (132-148) 11/05/17 06:10 Potassium 4.2 MMOL/L (3.6-5.0) 11/05/17 06:10 Chloride 101 mmol/L (98-107) 11/05/17 06:10 Carbon Dioxide 25 mmol/L (22-30) 11/05/17 06:10 Anion Gap 13 (10-20) 11/05/17 06:10 BUN 13 mg/dl (9-20) 11/05/17 06:10 Creatinine 0.5 mg/dl (0.8-1.5) L 11/05/17 06:10 Est GFR ( Amer) > 60 11/05/17 06:10 Est GFR (Non-Af Amer) > 60 11/05/17 06:10 Random Glucose 150 mg/dL (75-110) H 11/05/17 06:10 Calcium 9.2 mg/dL (8.4-10.2) 11/05/17 06:10 Total Bilirubin 1.0 mg/dl (0.2-1.3) 11/05/17 06:10 AST 17 U/L (17-59) D 11/05/17 06:10 ALT 16 U/L (21-72) L D 11/05/17 06:10 Alkaline Phosphatase 66 U/L (38-126) 11/05/17 06:10 Troponin I < 0.0120 ng/mL (0.00-0.120) 11/04/17 20:42 NT-Pro-B Natriuret Pep 51.1 pg/ml (0-900) 11/04/17 20:42 Total Protein 7.3 G/DL (6.3-8.2) 11/05/17 06:10 Albumin 4.1 g/dL (3.5-5.0) 11/05/17 06:10 Globulin 3.1 gm/dL (2.2-3.9) 11/05/17 06:10 Albumin/Globulin Ratio 1.3 (1.0-2.1) 11/05/17 06:10 Attending/Attestation - Attestation I have personally seen and examined this patient.: Yes I have fully participated in the care of the patient.: Yes I have reviewed all pertinent clinical information, including history, physical exam and plan: Yes Notes (Text): 11/06/17 18:15 Seen, examined, and discussed with residents Drs. Fernández and Cyndy. Agree with findings and plan as above.
== END 2017-11-06 12:36 | disposition home or self-care (01) ==
LOC: H.ER 19:49 → H.ERHOLD 23:15 → H.MEDSURG1 11-05 01:07
PROVIDERS: ADMIT Internal Medicine; ATTEND Internal Medicine
DX: J44.1 Chronic obstructive pulmonary disease with (acute) exacerbation (principal); F17.210 Nicotine dependence, cigarettes, uncomplicated; F12.90 Cannabis use, unspecified, uncomplicated; F10.10 Alcohol abuse, uncomplicated; Y90.9 Presence of alcohol in blood, level not specified
CPT/HCPCS: 36415; 71045; 80053; 83880; 84484; 85025; 87070; 87206; 93005; 94640; 96374; 99282; G0378; J1650; J2930; J3475

== ENCOUNTER 2017-12-06 09:03 | Emergency (ER) | payer MEDICAID ==
[2017-12-06 09:14] VITALS: BMI 20.5
[2017-12-06] MEDS ORDERED: Oxycodone/Acetaminophen 5/325 mg Tab PO STA (09:45)
--- NOTE | 2017-12-06 10:34 | ED PDOC ---
Upper Extremity Pain/Injury Time Seen by Provider: 12/06/17 09:17 Chief Complaint (Nursing): Finger,Hand,&Wrist Chief Complaint (Provider): Left Hand Pain History Per: Patient History/Exam Limitations: no limitations Onset/Duration Of Symptoms: Days (today) Current Symptoms Are (Timing): Still Present Quality: "Pain" Additional Complaint(s): 62 year old male with a history of COPD present to the ED with left hand pain and swelling. Patient states he woke up in the middle of the night with left hand pain radiating up arm along the bicep. He denies any trauma or having similar pain before. Patient states as morning went on, the pain progressively worsened. PMD: none provided Home medications: spiriva Past Medical History Reviewed: Historical Data, Nursing Documentation, Vital Signs Vital Signs: Last Vital Signs Temp 97.9 F 12/06/17 09:12 Pulse 118 H 12/06/17 09:12 Resp 22 12/06/17 09:12 BP 107/73 12/06/17 09:12 Pulse Ox 96 12/06/17 09:12 - Medical History PMH: Asthma, COPD, Emphysema, Pneumonia Denies: Chronic Kidney Disease - Family History Family History: States: Unknown Family Hx - Social History Current smoker - smoking cessation education provided: Yes (2 cigarettes a day) Ex-Smoker (has not smoked in the last 12 months): No Alcohol: Social Drugs: Denies - Immunization History Hx Tetanus Toxoid Vaccination: No Hx Influenza Vaccination: Yes Hx Pneumococcal Vaccination: Yes - Home Medications Home Medications: Ambulatory Orders Medication Instructions Recorded Azithromycin [Z-Anastacio] 250 mg PO DAILY #4 tab 11/05/17 RX: Albuterol 0.083% [Albuterol 3 ml IH Q4H PRN 30 Days neb 11/05/17 0.083% Inhal Fernanda (2.5 mg/3 ml) UD] RX: Albuterol HFA [Ventolin HFA 90 2 puff IH Q4 #1 inhaler 11/05/17 mcg/actuation (8 g)] RX: Albuterol/Ipratropium [Duoneb 3 ml INH RQ4 PRN 5 Days neb 11/05/17 3 mg/0.5 mg (3 ml) UD] RX: Fluticasone/Salmeterol [Airduo 2 puff IH Q12 #1 aer.pow.ba 08/30/18 Respiclick 113-14 Mcg] RX: Tiotropium [Spiriva] 18 mcg IH DAILY #1 cap 11/05/17 RX: predniSONE [predniSONE Tab] 20 mg PO DAILY 5 Days #5 tab 11/05/17 RX: Azithromycin [Zithromax] 250 mg PO DAILY 3 Days tab 11/06/17 RX: Naproxen 500 mg PO BID #30 ect 12/06/17 - Allergies Allergies/Adverse Reactions: Allergies Allergy/AdvReac Type Severity Reaction Status Date / Time No Known Allergies Allergy Verified 11/04/17 20:02 Review of Systems ROS Statement: Except As Marked, All Systems Reviewed And Found Negative Musculoskeletal: Positive for: Hand Pain (and swelling) Physical Exam - Reviewed Nursing Documentation Reviewed: Yes Vital Signs Reviewed: Yes - Physical Exam Appears: Positive for: No Acute Distress Skin: Positive for: Normal Color, Warm, Dry Eye Exam: Positive for: Normal appearance Neck: Positive for: Normal Cardiovascular/Chest: Positive for: Regular Rate, Rhythm. Negative for: Murmur Respiratory: Positive for: Normal Breath Sounds. Negative for: Respiratory Distress Gastrointestinal/Abdominal: Positive for: Normal Exam, Soft. Negative for: Tenderness Extremity: Positive for: Other (swelling to the bernstein thenar eminence, fourth and fifth digits held in flexed position at rest, no visible deformities to rest of UE, noted no tenderness to palpation of spine, scapula or shoulder, no pain on extension of fourth and fifth digit, no reported numbness to ulnar or radial side of any digits or dorsal hand or palm, patient denies radiation of pain when tapping over ventral wrist, patient unable to squeeze hand limited by pain. ) Neurologic/Psych: Positive for: Alert, Oriented (x3) - ECG O2 Sat by Pulse Oximetry: 96 (RA) Pulse Ox Interpretation: Normal Medical Decision Making Medical Decision Making: Time: 941 Workup for bony injury versus nerve compression causing symptoms Initial Plan: --XR --Percocet for pain control --Reevaluate Time: 1322 --xray shows no acute fracture or dislocation. --Patient to be discharge home, pain improved. Patient given prescription for naproxen, hand and wrist placed in splint. He will follow up with orthopedics Scribe Attestation: Documented by Shandra Garcia, acting as a scribe for Hortencia Holman MD Provider Scribe Attestation: All medical record entries made by the Scribe were at my direction and personally dictated by me. I have reviewed the chart and agree that the record accurately reflects my personal performance of the history, physical exam, medical decision making, and the department course for this patient. I have also personally directed, reviewed, and agree with the discharge instructions and disposition. Disposition - Clinical Impression Clinical Impression: Left hand pain - Disposition Referrals: Khari Garcia MD [Medical Doctor] - Disposition Time: 13:22 Condition: IMPROVED Additional Instructions: Keep hand in brace for comfort. Take Naproxen twice per day for pain and Tylenol if needed. Follow up with orthopedics as referred. Prescriptions: RX: Naproxen 500 mg PO BID #30 ect Instructions: Hand Pain (DC) Forms: [employer] (Canadian) Print Language: MAURITANIAN
--- NOTE | 2017-12-06 11:09 | RAD ---
PROCEDURE: Left Hand Radiographs. HISTORY: left hand pain COMPARISON: None. FINDINGS: BONES: No acute fracture. JOINTS: Diffuse degenerative changes, worst at the 1st carpometacarpal articulation. SOFT TISSUES: Normal. OTHER FINDINGS: None. IMPRESSION: No demonstrated fracture or dislocation. Severe 1st carpometacarpal joint degenerative changes.
--- NOTE | 2017-12-06 11:10 | RAD ---
Date of service: 12/06/2017 PROCEDURE: Radiographs of the left elbow. HISTORY: left hand pain and thenar swelling COMPARISON: No prior. FINDINGS: BONES: No acute fracture. JOINTS: Unremarkable. SOFT TISSUES: Normal. JOINT EFFUSION: None. OTHER FINDINGS: None IMPRESSION: No demonstrated fracture or dislocation.
--- NOTE | 2017-12-06 11:11 | RAD ---
PROCEDURE: Radiographs of the left humerus. HISTORY: left humerus pain COMPARISON: None. FINDINGS: BONES: No acute fracture. SOFT TISSUES: Normal. OTHER FINDINGS: None. IMPRESSION: No demonstrated fracture or dislocation.
[2017-12-06] MEDS ORDERED: Naproxen 500 MG TAB PO STA (13:11)
[2017-12-06 14:04] VITALS: BP 128/78; PULSE 78; RESP 19; TEMP 98
[2017-12-06 18:33] VITALS: O2SAT 96
[2017-12-06] MEDS ORDERED: Naproxen 500 MG TAB PO SCH (21:00)
== END 2017-12-06 14:06 | disposition home or self-care (01) ==
LOC: H.ER 09:03
DX: M79.642 Pain in left hand (principal)

== ENCOUNTER 2017-12-30 03:18 | Emergency (ER) | payer MEDICAID ==
[2017-12-30 03:18] VITALS: BMI 20.5
[2017-12-30] MEDS ORDERED: Albuterol-Ipratrop 3 mg / 0.5 (3 ml) UD INH STA ×3 (03:51→07:04)
--- NOTE | 2017-12-30 05:09 | ED PDOC ---
HPI: SOB/CHF/COPD Time Seen by Provider: 12/30/17 03:20 Chief Complaint (Nursing): Respiratory Distress Chief Complaint (Provider): Shortness of Breath History Per: Patient History/Exam Limitations: no limitations Onset/Duration Of Symptoms: Days Current Symptoms Are (Timing): Still Present Additional Complaint(s): 62 year old male with PMHx of COPD and asthma presents to the ER for an evaluation of shortness of breath onset last night. He reports he occasionally wheezes and states the shortness of breath is associated with the asthma exacerbation. Denies fever, cough, vomiting or allergic reaction. PMD: Clinic Past Medical History Reviewed: Historical Data, Nursing Documentation, Vital Signs Vital Signs: Last Vital Signs Temp 99 F 12/30/17 03:28 Pulse 81 12/30/17 04:09 Resp 20 12/30/17 04:09 BP 109/83 12/30/17 04:09 Pulse Ox 99 12/30/17 04:09 - Medical History PMH: Asthma, COPD, Emphysema, Pneumonia Denies: Chronic Kidney Disease - Surgical History Surgical History: No Surg Hx - Family History Family History: States: Unknown Family Hx - Social History Current smoker - smoking cessation education provided: Yes (Light Smoker < 10 Cigarettes Daily) Alcohol: < 2 Drinks/Day Drugs: Cannabis - Immunization History Hx Tetanus Toxoid Vaccination: No Hx Influenza Vaccination: Yes Hx Pneumococcal Vaccination: Yes - Home Medications Home Medications: Ambulatory Orders Medication Instructions Recorded Azithromycin [Z-Anastacio] 250 mg PO DAILY #4 tab 11/05/17 RX: Albuterol 0.083% [Albuterol 3 ml IH Q4H PRN 30 Days neb 11/05/17 0.083% Inhal Fernanda (2.5 mg/3 ml) UD] RX: Albuterol HFA [Ventolin HFA 90 2 puff IH Q4 #1 inhaler 11/05/17 mcg/actuation (8 g)] RX: Albuterol/Ipratropium [Duoneb 3 ml INH RQ4 PRN 5 Days neb 11/05/17 3 mg/0.5 mg (3 ml) UD] RX: Fluticasone/Salmeterol [Airduo 2 puff IH Q12 #1 aer.pow.ba 11/05/17 Respiclick 113-14 Mcg] RX: Tiotropium [Spiriva] 18 mcg IH DAILY #1 cap 11/05/17 RX: predniSONE [predniSONE Tab] 20 mg PO DAILY 5 Days #5 tab 11/05/17 RX: Azithromycin [Zithromax] 250 mg PO DAILY 3 Days tab 11/06/17 RX: Naproxen 500 mg PO BID #30 ect 12/06/17 RX: Albuterol HFA [Ventolin HFA 90 1 - 2 puff IH Q4H PRN #1 bottle 12/30/17 mcg/actuation (8 g)] predniSONE [Prednisone] 40 mg PO DAILY #8 tab 12/30/17 - Allergies Allergies/Adverse Reactions: Allergies Allergy/AdvReac Type Severity Reaction Status Date / Time No Known Allergies Allergy Verified 11/04/17 20:02 Wells Criteria for PE - Wells Criteria for Pulmonary Embolism Clinical Signs and Symptoms of DVT: No P.E is #1 Diagnosis, or Equally Likely: No Heart Rate >100: No Immobilization at least 3 days;Surgery previous 4 weeks: No Previous, objectively diagnosed PE or DVT: No Hemoptysis: No Malignancy w/treatment within 6 months, or palliative: No Total Score: 0 Review of Systems ROS Statement: Except As Marked, All Systems Reviewed And Found Negative Constitutional: Negative for: Fever Respiratory: Positive for: Shortness of Breath. Negative for: Cough Gastrointestinal: Negative for: Vomiting Physical Exam - Reviewed Nursing Documentation Reviewed: Yes Vital Signs Reviewed: Yes - Physical Exam Appears: Positive for: Non-toxic, No Acute Distress Head Exam: Positive for: ATRAUMATIC, NORMAL INSPECTION, NORMOCEPHALIC Skin: Positive for: Normal Color, Warm, Dry Eye Exam: Positive for: EOMI, Normal appearance, PERRL ENT: Positive for: Normal ENT Inspection Neck: Positive for: Normal, Painless ROM, Supple. Negative for: Decreased ROM Cardiovascular/Chest: Positive for: Regular Rate, Rhythm. Negative for: Murmur Respiratory: Positive for: Wheezing, Other (good air entry bilaterally) Gastrointestinal/Abdominal: Positive for: Normal Exam, Soft. Negative for: Tenderness, Guarding, Rebound Back: Positive for: Normal Inspection. Negative for: L CVA Tenderness, R CVA Tenderness Extremity: Positive for: Normal ROM. Negative for: Tenderness, Pedal Edema, Deformity Neurologic/Psych: Positive for: Alert, Oriented (x3). Negative for: Motor/S ensory Deficits - Laboratory Results Result Diagrams: 12/30/17 05:05 12/30/17 05:05 - ECG O2 Sat by Pulse Oximetry: 99 (RA) Pulse Ox Interpretation: Normal Medical Decision Making Medical Decision Making: Time: 457 Initial Impression: shortness of breath likely asthma pt is well appearing Initial Plan: CMP CBC w/ Differential Duoneb 3mg/0.5mg (3ml) Solu-Medrol 125mg Peak Flow Pre/Post TX Reevaluation pt feels better after the medications wheezing improved 02 sat 100 pervent room air, no tachypnea, no fever pt stable for dc home ando utpt follow up ----- Scribe Attestation: Documented by Sujatha Roberto, acting as a scribe for Mar Gaston MD. Provider Scribe Attestation: All medical record entries made by the Scribe were at my direction and personally dictated by me. I have reviewed the chart and agree that the record accurately reflects my personal performance of the history, physical exam, medical decision making, and the department course for this patient. I have also personally directed, reviewed, and agree with the discharge instructions and disposition. Disposition - Clinical Impression Clinical Impression: COPD exacerbation - Patient ED Disposition Is Patient to be Admitted: No Counseled Patient/Family Regarding: Studies Performed, Diagnosis, Need For Fo llowup - Disposition Disposition: Routine/Home Disposition Time: 06:50 Condition: IMPROVED Additional Instructions: follow up with your doctor at clinic in 1-2 days return to the ED with any worsening or concerning symptoms Prescriptions: RX: Albuterol HFA [Ventolin HFA 90 mcg/actuation (8 g)] 1 - 2 puff IH Q4H PRN #1 bottle PRN Reason: Wheezing predniSONE [Prednisone] 40 mg PO DAILY #8 tab Instructions: Exacerbation of COPD Forms: [employer] (Ivorian)
[2017-12-30 05:24] LABS: BASO % 0.2 % (0.0-2.0); EOS # 0.9 K/uL (0.0-0.7); EOS % 11.5 % (0.0-4.0); HEMOGLOBIN 12.8 g/dL (12.0-18.0); LYMPH # 1.2 K/uL (1.0-4.3); LYMPH % 14.7 % (20.0-40.0); MEAN CELL VOLUME 95.6 fl (80.0-94.0); MEAN CORPUSCULAR HGB CONC 33.5 g/dL (33.0-37.0); MEAN PLATELET VOLUME 7.7 fl (7.2-11.7); MONO # 0.9 K/uL (0.0-0.8); MONO % 11.7 % (0.0-10.0); NEUT % 61.9 % (50.0-75.0); RBC 3.99 Mil/uL (4.40-5.90); RED CELL DISTRIBUTION WIDTH 13.9 % (11.5-14.5); WHITE BLOOD COUNT 8.1 K/uL (4.8-10.8)
[2017-12-30 06:05] LABS: ALB/GLOB RATIO 1.2 (1.0-2.1); ALBUMIN 3.7 g/dL (3.5-5.0); ALT/SGPT 28 U/L (21-72); AST/SGOT 47 U/L (17-59); BLOOD UREA NITROGEN 13 mg/dl (9-20); CALCIUM 8.9 mg/dL (8.4-10.2); GFR NON-AFRICAN AMERICAN > 60
[2017-12-30] MEDS ORDERED: Albuterol-Ipratrop 3 mg / 0.5 (3 ml) UD ONE (06:54)
[2017-12-30] MEDS ORDERED: Albuterol-Ipratrop 3 mg / 0.5 (3 ml) UD INH SCH (08:00)
[2017-12-30 10:51] VITALS: BP 110/74; PULSE 76; RESP 15; TEMP 98.1
[2017-12-31 09:10] VITALS: O2SAT 99
== END 2017-12-30 07:18 | disposition home or self-care (01) ==
LOC: H.ER 03:18
DX: J44.1 Chronic obstructive pulmonary disease with (acute) exacerbation (principal); F17.210 Nicotine dependence, cigarettes, uncomplicated
CPT/HCPCS: 80053; 85025; 94150; 94640; 96374; 99285; J2930

== ENCOUNTER 2018-01-10 17:27 | Inpatient (IN) | payer MEDICAID ==
[2018-01-10 17:28] VITALS: BMI 20.5
[2018-01-10] MEDS ORDERED: Albuterol-Ipratrop 3 mg / 0.5 (3 ml) UD INH STA ×2 (17:43→19:03)
[2018-01-10 17:57] LABS: BASO # 0.1 K/uL (0.0-0.2); BASO % 1.2 % (0.0-2.0); EOS % 10.7 % (0.0-4.0); HEMOGLOBIN 14.1 g/dL (12.0-18.0); LYMPH # 1.7 K/uL (1.0-4.3); LYMPH % 17.7 % (20.0-40.0); MEAN CELL VOLUME 94.9 fl (80.0-94.0); MEAN CORPUSCULAR HEMOGLOBIN 31.5 pg (27.0-31.0); MEAN CORPUSCULAR HGB CONC 33.2 g/dL (33.0-37.0); MEAN PLATELET VOLUME 7.4 fl (7.2-11.7); MONO % 10.7 % (0.0-10.0); NEUT # 5.7 K/uL (1.8-7.0); NEUT % 59.7 % (50.0-75.0); RBC 4.47 Mil/uL (4.40-5.90); RED CELL DISTRIBUTION WIDTH 14.2 % (11.5-14.5); WHITE BLOOD COUNT 9.5 K/uL (4.8-10.8)
[2018-01-10 18:24] LABS: ALB/GLOB RATIO 1.3 (1.0-2.1); ALBUMIN 4.4 g/dL (3.5-5.0); ALT/SGPT 23 U/L (21-72); AST/SGOT 39 U/L (17-59); BLOOD UREA NITROGEN 7 mg/dl (9-20); CALCIUM 9.2 mg/dL (8.4-10.2); GFR NON-AFRICAN AMERICAN > 60
[2018-01-10 18:31] LABS: B-TYPE NATRIURETIC PEPTIDE 48.3 pg/ml (0-900)
--- NOTE | 2018-01-10 19:06 | ED PDOC ---
HPI: SOB/CHF/COPD Time Seen by Provider: 01/10/18 17:42 Chief Complaint (Nursing): Shortness Of Breath Chief Complaint (Provider): COUGH, SOB, WHEEZE History Per: Patient History/Exam Limitations: clinical condition Onset/Duration Of Symptoms: Sudden Onset Current Symptoms Are (Timing): Still Present Quality: Tightness Exacerbating Factor(s): Coughing Current Respiratory Medications: See Home Med List Severity: Moderate Recently: Treated By A Physician Additional Complaint(s): 62yo male c/o SOB, chest tightness and cough since being at a barbeque and believing the smoke triggered a COPD exacerbation. Denies fever, edema, orthopnea. Last COPD exacerbation several weeks ago. Not on steroids currently. Past Medical History Reviewed: Historical Data, Nursing Documentation, Vital Signs Vital Signs: Last Vital Signs Temp 97.9 F 01/10/18 17:32 Pulse 106 H 01/10/18 17:32 Resp 24 01/10/18 17:52 BP 127/76 01/10/18 17:32 Pulse Ox 93 L 01/10/18 17:52 - Medical History PMH: Asthma, COPD, Emphysema, Pneumonia Denies: Chronic Kidney Disease - Family History Family History: States: Unknown Family Hx - Social History Current smoker - smoking cessation education provided: Yes - Immunization History Hx Tetanus Toxoid Vaccination: No Hx Influenza Vaccination: Yes Hx Pneumococcal Vaccination: Yes - Home Medications Home Medications: Ambulatory Orders Medication Instructions Recorded Albuterol 0.083% [Albuterol 0.083% 3 ml IH Q4H PRN 30 Days neb 11/05/17 Inhal Fernanda (2.5 mg/3 ml) UD] Albuterol HFA [Ventolin HFA 90 2 puff IH Q4 #1 inhaler 11/05/17 mcg/actuation (8 g)] Albuterol/Ipratropium [Duoneb 3 3 ml INH RQ4 PRN 5 Days neb 11/05/17 mg/0.5 mg (3 ml) UD] Azithromycin [Z-Anastacio] 250 mg PO DAILY #4 tab 11/05/17 Fluticasone/Salmeterol [Airduo 2 puff IH Q12 #1 aer.pow.ba 11/05/17 Respiclick 113-14 Mcg] Tiotropium [Spiriva] 18 mcg IH DAILY #1 cap 11/05/17 predniSONE [predniSONE Tab] 20 mg PO DAILY 5 Days #5 tab 11/05/17 Azithromycin [Zithromax] 250 mg PO DAILY 3 Days tab 11/06/17 Naproxen 500 mg PO BID #30 ect 12/06/17 Albuterol HFA [Ventolin HFA 90 1 - 2 puff IH Q4H PRN #1 bottle 12/30/17 mcg/actuation (8 g)] predniSONE [Prednisone] 40 mg PO DAILY #8 tab 12/30/17 - Allergies Allergies/Adverse Reactions: Allergies Allergy/AdvReac Type Severity Reaction Status Date / Time No Known Allergies Allergy Verified 11/04/17 20:02 Review of Systems ROS Statement: Except As Marked, All Systems Reviewed And Found Negative Constitutional: Negative for: Fever Cardiovascular: Negative for: Chest Pain, Palpitations Respiratory: Positive for: Cough, Shortness of Breath, SOB with Exertion, Pleuritic Pain, Wheezing Gastrointestinal: Negative for: Diarrhea Genitourinary Male: Negative for: Dysuria Musculoskeletal: Negative for: Neck Pain Skin: Negative for: Rash, Lesions Neurological: Negative for: Weakness, Numbness Psych: Negative for: Suicidal ideation Physical Exam - Reviewed Nursing Documentation Reviewed: Yes Vital Signs Reviewed: Yes - Physical Exam Appears: Positive for: Non-toxic, In Acute Distress (SOB) Head Exam: Positive for: ATRAUMATIC, NORMAL INSPECTION, NORMOCEPHALIC Skin: Positive for: Normal Color, Warm, DRY Eye Exam: Positive for: EOMI, Normal appearance, PERRL ENT: Positive for: Normal ENT Inspection Neck: Positive for: Normal, Painless ROM Cardiovascular/Chest: Positive for: Regular Rate, Rhythm Respiratory: Positive for: Decreased Breath Sounds, Wheezing, Respiratory Distre ss Pulses-Radial (L): 3+/4+ Pulses-Radial (R): 3+/4+ Gastrointestinal/Abdominal: Positive for: Soft. Negative for: Tenderness Back: Positive for: Normal Inspection Extremity: Positive for: Normal ROM Neurologic/Psych: Positive for: Alert, Oriented. Negative for: Motor/Sensory Deficits - Laboratory Results Result Diagrams: 01/10/18 17:49 01/10/18 17:49 - ECG ECG: Positive for: Interpreted By Nv ECG Rhythm: Positive for: Sinus Rhythm, Nonspecific Changes Rate: 91 O2 Sat by Pulse Oximetry: 93 Pulse Ox Interpretation: Abnormal Medical Decision Making Medical Decision Making: workup for resp distress initiated duoneb, solumedrol ordered labs reviewed BNP neg CXR no acute infiltrate my review Improved after duoneb but remains dyspneic 7pm endorsed Dr Walsh Disposition - Clinical Impression Clinical Impression: COPD exacerbation - Patient ED Disposition Is Patient to be Admitted: Transfer of Care - Disposition Disposition: Transfer of Care Disposition Time: 19:07 Condition: FAIR Patient Signed Over To: Liana Walsh Handoff Comments: pending repeat duoneb/ reeval and dispo
[2018-01-10] MEDS ORDERED: Albuterol-Ipratrop 3 mg / 0.5 (3 ml) UD ONE ×2 (19:24→20:50)
--- NOTE | 2018-01-10 20:08 | ED PDOC ---
- Laboratory Results Result Diagrams: 01/10/18 17:49 01/10/18 17:49 - ECG O2 Sat by Pulse Oximetry: 93 Medical Decision Making Medical Decision Makin:00 Patient is being signed out to me by Blair Aquino III, DO pending CT reevaluation. 2200 Upon ambulation in ED patient is more dyspneic, tachypnic, PF 150. Admit for observation. Scribe Attestation: Documented byHortencia Ureña, acting as a scribe for Liana Walsh MD. Provider Scribe Attestation: All medical record entries made by the Scribe were at my direction and personally dictated by me. I have reviewed the chart and agree that the record accurately reflects my personal performance of the history, physical exam, medical decision making, and the department course for this patient. I have also personally directed, reviewed, and agree with the discharge instructions and disposition. Disposition Discussed With : Yared Ramachandran Doctor Will See Patient In The: ED Counseled Patient/Family Regarding: Studies Performed, Diagnosis - Clinical Impression Clinical Impression: COPD exacerbation - POA Present On Arrival: None - Disposition Disposition: Hospitalized as Observation Patient Disposition Time: 22:00 Condition: FAIR
--- NOTE | 2018-01-10 22:17 | CP.PCM.HP ---
History of Present Illness - History of Present Illness History of Present Illness: PMD( clinic) Chief Complaint: SOB The patient was seen and examined in the ED HPI: This is a 62 years old male with hx of Asthma with COPD and heavy tobacco abuser. He comes with one day of severe SOB, wheezing, and coughing beginning at a Barbeque where there was heavy smoke. He has no fever, chest pain, palpitation nor headache. In the ED his SpO2 was 90-91 on RA. He was treated with multiple doses of Duoneb and .Solu-medrol. PMH: Asthma, COPD, Emphysema, Pneumonia PSH: Right Neck cyst removed SH: Smokes <10 cigarettes daily; uses marijuana; Lives with the family, Daily use of Alcohol FH: State: No knwn past medical Hx Allergies: NKDA Medication: Reviewed Present on Admission - Present on Admission Any Indicators Present on Admission: No History of DVT/PE: No History of Uncontrolled Diabetes: No Urinary Catheter: No Decubitus Ulcer Present: No Review of Systems - Constitutional Constitutional: absent: Chills, Fever, Headache - EENT Eyes: Requires Corrective Lenses. absent: Blurred Vision, Diplopia, Floaters Ears: absent: Decreased Hearing, Ear Discharge, Tinnitus Nose/Mouth/Throat: absent: Epistaxis, Nasal Congestion, Nasal Discharge - Cardiovascular Cardiovascular: Dyspnea. absent: Chest Pain, Edema, Lightheadedness - Respiratory Respiratory: Dyspnea, Wheezing. absent: Cough, Stridor - Gastrointestinal Gastrointestinal: absent: Abdominal Pain, Diarrhea, Early Satiety - Genitourinary Genitourinary: absent: Dysuria, Flank Pain, Urinary Frequency - Musculoskeletal Musculoskeletal: absent: Arthralgias, Loss of Height, Stiffness - Integumentary Integumentary: absent: Dry Skin, Skin Ulcer, Sores, Striae, Swelling - Neurological Neurological: absent: Confusion, Dizziness, Focal Weakness, Weakness - Psychiatric Psychiatric: absent: Anxiety, Confusion, Depression - Endocrine Endocrine: absent: Palpitations, Polydipsia, Polyphagia, Polyuria - Hematologic/Lymphatic Hematologic: absent: Easy Bleeding, Easy Bruising Past Patient History - Infectious Disease Hx of Infectious Diseases: None - Tetanus Immunizations Tetanus Immunization: Unknown - Past Medical History & Family History Past Medical History?: Yes - Past Social History Smoking Status: Heavy Smoker > 10 Cigarettes Daily Chewing Tobacco Use: No Cigar Use: No - CARDIAC Hx Cardiac Disorders: No - PULMONARY Hx Asthma: Yes Hx Chronic Obstructive Pulmonary Disease (COPD): Yes Hx Emphysema: Yes Hx Pneumonia: Yes - NEUROLOGICAL Hx Neurological Disorder: No - HEENT Hx HEENT Problems: Yes Other/Comment: uses eye glasses - RENAL Hx Chronic Kidney Disease: No - ENDOCRINE/METABOLIC Hx Endocrine Disorders: No - HEMATOLOGICAL/ONCOLOGICAL Hx Blood Disorders: No - INTEGUMENTARY Hx Dermatological Problems: No - MUSCULOSKELETAL/RHEUMATOLOGICAL Hx Musculoskeletal Disorders: No Hx Falls: No - GASTROINTESTINAL Hx Gastrointestinal Disorders: No - GENITOURINARY/GYNECOLOGICAL Hx Genitourinary Disorders: No - PSYCHIATRIC Hx Psychophysiologic Disorder: No Hx Substance Use: Yes - SURGICAL HISTORY Hx Surgeries: Yes (neck cyst right side) Other/Comment: right neck cyst removal 5 years ago - ANESTHESIA Hx Anesthesia: Yes Hx Anesthesia Reactions: No Hx Malignant Hyperthermia: No Meds Allergies/Adverse Reactions: Allergies Allergy/AdvReac Type Severity Reaction Status Date / Time No Known Allergies Allergy Verified 11/04/17 20:02 Physical Exam - Constitutional Appears: In Acute Distress - Head Exam Head Exam: ATRAUMATIC, NORMAL INSPECTION, NORMOCEPHALIC - Eye Exam Eye Exam: EOMI, Normal appearance Pupil Exam: NORMAL ACCOMODATION, PERRL - ENT Exam ENT Exam: Mucous Membranes Moist, Normal Exam, Normal External Ear Exam - Neck Exam Neck exam: Positive for: Full Rom, Normal Inspection. Negative for: Lymphadenopathy - Respiratory Exam Respiratory Exam: Rales. absent: Rhonchi, Wheezes, NORMAL BREATHING PATTERN - Cardiovascular Exam Cardiovascular Exam: REGULAR RHYTHM, +S1, +S2 - GI/Abdominal Exam GI & Abdominal Exam: Normal Bowel Sounds, Soft. absent: Mass, Organomegaly, Tenderness - Rectal Exam Rectal Exam: Deferred - Extremities Exam Extremities exam: Positive for: full ROM, normal inspection - Back Exam Back exam: NORMAL INSPECTION. absent: CVA tenderness (L), CVA tenderness (R) - Neurological Exam Neurological exam: Alert, CN II-XII Intact, Oriented x3, Reflexes Normal - Psychiatric Exam Psychiatric exam: Normal Affect, Normal Mood - Skin Skin Exam: Dry, Normal Color, Warm Results - Vital Signs Recent Vital Signs: Last Vital Signs Temp 98.5 F 01/10/18 19:53 Pulse 91 H 01/10/18 19:57 Resp 19 01/10/18 19:53 BP 133/78 01/10/18 19:53 Pulse Ox 93 L 11/04/18 22:11 - Labs Result Diagrams: 01/10/18 17:49 01/10/18 17:49 Labs: Laboratory Results - last 24 hr 01/10/18 01/10/18 17:49 17:49 WBC 9.5 RBC 4.47 Hgb 14.1 Hct 42.4 MCV 94.9 H MCH 31.5 H MCHC 33.2 RDW 14.2 Plt Count 357 MPV 7.4 Neut % (Auto) 59.7 Lymph % (Auto) 17.7 L [place] % (Auto) 10.7 H Eos % (Auto) 10.7 H Baso % (Auto) 1.2 Neut # (Auto) 5.7 Lymph # (Auto) 1.7 [place] # (Auto) 1.0 H Eos # (Auto) 1.0 H Baso # (Auto) 0.1 Sodium 139 Potassium 4.3 Chloride 106 Carbon Dioxide 22 Anion Gap 15 BUN 7 L Creatinine 0.4 L Est GFR ( Amer) > 60 Est GFR (Non-Af Amer) > 60 Random Glucose 84 Calcium 9.2 Total Bilirubin 0.4 AST 39 ALT 23 Alkaline Phosphatase 50 Troponin I < 0.0120 NT-Pro-B Natriuret Pep 48.3 Total Protein 7.8 Albumin 4.4 Globulin 3.4 Albumin/Globulin Ratio 1.3 Assessment & Plan - Assessment and Plan (Free Text) Plan: 62 years old male with hx of Asthma with COPD and heavy tobacco abuser. He comes with one day of severe SOB, wheezing, and coughing beginning at a Barbeque where there was heavy smoke. He has no fever, chest pain, palpitation nor headache. In the ED his SpO2 was 90-91 on RA. He was treated with multiple doses of Duoneb and .Solu-medrol but continued to wheeze. He is admitted for continued therapy. A&P #. COPD exacerbation - The patient received Duoneb X3 and methylprednisolone in the ED, and placed on Observation because of persistent SOB. - Continue Duoneb Q4H and PRN Q2h - Methylprednisolone - Advair - Spiriva - Mucinex - O2 #. Nicotine Addiction - Nicotine patch #. Alcohol abuse - Banana bag which includes Thiamine/Folic Acid and Multivitamin - Thiamine/Folic acid Yared Ramachandran MD Hospitalist - Date & Time Date: 01/10/18 Time: 22:17
[2018-01-10] MEDS ORDERED: Albuterol-Ipratrop 3 mg / 0.5 (3 ml) UD INH PRN (22:47)
[2018-01-10] MEDS ORDERED: Albuterol 0.083% Inhal Sol (2.5 mg/3 mL) UD INH PRN (22:54)
[2018-01-10] MEDS ORDERED: Multivitamin (MVI) 10 ML, Thiamine 100 MG, Folic Acid 1 MG in Dextrose 5%/0.45% NS 1,00... IV ONE (23:05)
[2018-01-10 23:06] LABS: ABG ALLEN TEST YES; ARTERIAL BLOOD GAS HCO3 26.1 mmol/L (21-28); ARTERIAL BLOOD GAS HEMOGLOBIN 14.6 g/dL (11.7-17.4); ARTERIAL BLOOD GAS O2 CAPACITY 19.2 mL/dL (16-24); ARTERIAL BLOOD GAS PCO2 33 mm/Hg (35-45); ARTERIAL BLOOD GAS PH 7.48 (7.35-7.45); ARTERIAL BLOOD GAS PO2 76 mm/Hg (80-100); ARTERIAL BLOOD GAS TCO2 25.6 mmol/L (22-28)
[2018-01-10] MEDS: guaiFENesin 600 mg ER Tab PO SCH (23:39)
[2018-01-10 23:57] LABS: BARBITURATES, UR NEGATIVE (NEGATIVE); BENZODIAZEPINES, UR NEGATIVE (NEGATIVE); OPIATES, UR NEGATIVE (NEGATIVE); PHENCYCLIDINE, UR NEGATIVE (NEGATIVE)
[2018-01-11] MEDS ORDERED: Albuterol-Ipratrop 3 mg / 0.5 (3 ml) UD ONE ×4 (00:37→12:02)
[2018-01-11] MEDS: Albuterol-Ipratrop 3 mg / 0.5 (3 ml) UD INH SCH ×7 (01:06→23:35)
[2018-01-11] MEDS: MethylPREDNISolone 40 mg Vial IVP SCH ×3 (02:41→16:44)
[2018-01-11] MEDS ORDERED: MethylPREDNISolone 40 mg Vial ONE ×2 (02:42→09:05)
[2018-01-11] MEDS: Tiotropium 18 mcg Cap For Inhalation IH SCH (09:02)
[2018-01-11] MEDS: Enoxaparin 40 mg Syringe SC SCH (09:02)
[2018-01-11] MEDS: guaiFENesin 600 mg ER Tab PO SCH ×2 (09:03→21:15)
--- NOTE | 2018-01-11 09:31 | RAD ---
Date of service: 01/10/2018 HISTORY: SOB COMPARISON: No prior. FINDINGS: LUNGS: Apical lordotic projection again submitted. No interval pulmonary disease appreciated bilaterally. PLEURA: No significant pleural effusion identified, no pneumothorax apparent. CARDIOVASCULAR: No aortic atherosclerotic calcification present. Normal cardiac size. No pulmonary vascular congestion. OSSEOUS STRUCTURES: No significant abnormalities. VISUALIZED UPPER ABDOMEN: Normal. OTHER FINDINGS: None. IMPRESSION: No interval acute cardiopulmonary disease appreciated.
[2018-01-11] MEDS: Fluticasone-Salmeterol 250-50mcg Diskus IH SCH ×2 (09:39→21:14)
--- NOTE | 2018-01-11 10:08 | CP.PCM.PN ---
<Jeromy Hammer - Last Filed: 01/11/18 10:40> Subjective - Date & Time of Evaluation Date of Evaluation: 01/11/18 Time of Evaluation: 10:07 - Subjective Subjective: pt seen and evaluated at bedside. Sitting up in bed comfortably, w/o signs of respiratory distress. POX currently 94-95% on 2L NC. Pt reports mild improvement in symptoms but still has SOB and cough. Cough improved, episodic white sputum production. No episodes of post-tussive emesis. Tolerating PO intake w/o issue. Afebrile. Denies any chills, headaches, changes in vision, CP/Palpitations, N/V/D/C. Objective - Vital Signs/Intake and Output Vital Signs (last 24 hours): Temp Pulse Resp BP Pulse Ox 98 F 82 18 105/70 97 01/11/18 07:53 01/11/18 07:53 01/11/18 07:53 01/11/18 07:53 01/11/18 07:53 - Medications Medications: Current Medications Albuterol Sulfate (Albuterol 0.083% Inhal Fernanda (2.5 Mg/3 Ml) Ud) 2.5 mg INH RQ2 PRN PRN Reason: Shortness of Breath Albuterol/Ipratropium (Duoneb 3 Mg/0.5 Mg (3 Ml) Ud) 3 ml INH RQ4 [facility] Last Admin: 01/11/18 08:28 Dose: 3 ml Enoxaparin Sodium (Lovenox) 40 mg SC DAILY [facility]; Protocol Last Admin: 01/11/18 09:02 Dose: 40 mg Folic Acid (Folic Acid) 1 mg PO DAILY [facility] Last Admin: 01/11/18 09:03 Dose: 1 mg Guaifenesin (Mucinex La) 600 mg PO Q12 [facility] Last Admin: 01/11/18 09:03 Dose: 600 mg Methylprednisolone (Solu-Medrol) 40 mg IVP Q8H [facility] Last Admin: 01/11/18 09:06 Dose: 40 mg Nicotine (Nicoderm Cq) 1 patch TD DAILY [facility] Last Admin: 01/11/18 09:03 Dose: 1 patch Fluticasone/Salmeterol (Advair Diskus 250/50) 1 puff IH Q12 [facility] Last Admin: 01/11/18 09:39 Dose: 1 inhaler Thiamine HCl (Vitamin B1 Tab) 100 mg PO DAILY [facility] Last Admin: 01/11/18 09:03 Dose: 100 mg Tiotropium [place] (Spiriva) 18 mcg IH DAILY [facility] Last Admin: 01/11/18 09:02 Dose: 18 mcg - Labs Labs: 01/10/18 17:49 01/10/18 17:49 - Constitutional Appears: Non-toxic, No Acute Distress, Chronically Ill - Head Exam Head Exam: ATRAUMATIC, NORMOCEPHALIC - Eye Exam Eye Exam: EOMI, PERRL. absent: Scleral icterus - ENT Exam ENT Exam: Mucous Membranes Moist - Neck Exam Neck Exam: Full ROM. absent: Lymphadenopathy - Respiratory Exam Respiratory Exam: Decreased Breath Sounds (b/l lower lung parekh), Prolonged Expiratory Phase, Rales (bibasilar rales ), Wheezes (low pitched scattered expiratory wheezes throughout both lung parekh ), NORMAL BREATHING PATTERN. absent: Accessory Muscle Use, Chest Wall Tenderness, Clear to Ausculation Bilateral, Respiratory Distress, Stridor - Cardiovascular Exam Cardiovascular Exam: REGULAR RHYTHM, RRR, +S1, +S2. absent: Diastolic murmur, JVD, Murmur - GI/Abdominal Exam GI & Abdominal Exam: Soft, Normal Bowel Sounds. absent: Guarding, Rigid - Extremities Exam Extremities Exam: Full ROM, Normal Capillary Refill. absent: Calf Tenderness, Pedal Edema - Neurological Exam Neurological Exam: Alert, Awake, CN II-XII Intact, Oriented x3 - Psychiatric Exam Psychiatric exam: Normal Affect, Normal Mood - Skin Skin Exam: Dry, Intact, Warm Assessment and Plan - Assessment and Plan (Free Text) Assessment: 61 y/o male with PMHx of COPD admitted for Acute COPD exacerbation secondary to environmental trigger exposure. Plan: 1) Acute COPD Exacerbation -afebrile -no leukocytosis -s/p 125mg Solu-medrol, Duoneb x3 -c/w with Duo-Nebs Q4H [facility] -IV prednisone 40mg Q8H -mucinex -spirva 18mcg QD -O2 supplement, keep POX ~92% -follow up AM labs/trend treatment 2) ETOH Abuse -B12/Folate/thiamine supplementation 3) Tobacco Abuse -nicotine patch 4) Diet -regular 5) Prophylaxis -Lovenox 40mg SC QD 6) Code Status -full code <Britta Fry - Last Filed: 01/11/18 16:03> Objective - Vital Signs/Intake and Output Vital Signs (last 24 hours): Temp Pulse Resp BP Pulse Ox 98 F 82 18 105/70 96 01/11/18 12:13 01/11/18 15:32 01/11/18 12:13 01/11/18 12:13 01/11/18 12:05 - Medications Medications: Current Medications Albuterol Sulfate (Albuterol 0.083% Inhal Fernanda (2.5 Mg/3 Ml) Ud) 2.5 mg INH RQ2 PRN PRN Reason: Shortness of Breath Albuterol/Ipratropium (Duoneb 3 Mg/0.5 Mg (3 Ml) Ud) 3 ml INH RQ4 [facility] Last Admin: 01/11/18 15:31 Dose: 3 ml Enoxaparin Sodium (Lovenox) 40 mg SC DAILY [facility]; Protocol Last Admin: 01/11/18 09:02 Dose: 40 mg Folic Acid (Folic Acid) 1 mg PO DAILY [facility] Last Admin: 01/11/18 09:03 Dose: 1 mg Guaifenesin (Mucinex La) 600 mg PO Q12 [facility] Last Admin: 01/11/18 09:03 Dose: 600 mg Methylprednisolone (Solu-Medrol) 40 mg IVP Q8H [facility] Last Admin: 01/11/18 09:06 Dose: 40 mg Nicotine (Nicoderm Cq) 1 patch TD DAILY [facility] Last Admin: 01/11/18 09:03 Dose: 1 patch Fluticasone/Salmeterol (Advair Diskus 250/50) 1 puff IH Q12 [facility] Last Admin: 01/11/18 09:39 Dose: 1 inhaler Thiamine HCl (Vitamin B1 Tab) 100 mg PO DAILY [facility] Last Admin: 01/11/18 09:03 Dose: 100 mg Tiotropium [place] (Spiriva) 18 mcg IH DAILY [facility] Last Admin: 01/11/18 09:02 Dose: 18 mcg - Labs Labs: 01/10/18 17:49 01/10/18 17:49 Attending/Attestation - Attestation I have personally seen and examined this patient.: Yes I have fully participated in the care of the patient.: Yes I have reviewed all pertinent clinical information, including history, physical exam and plan: Yes Notes (Text): 01/11/18 15:59 agree with findings and plan as above. patient continues to have wheezing, tight on exam. Patient requiring further bronchodilators and steroid treatment. Reevaluate tomorrow.
[2018-01-12 00:56] VITALS: RESP 20
[2018-01-12] MEDS: MethylPREDNISolone 40 mg Vial IVP SCH ×2 (01:13→08:45)
[2018-01-12] MEDS: Albuterol-Ipratrop 3 mg / 0.5 (3 ml) UD INH SCH ×4 (04:30→15:28)
[2018-01-12 06:40] LABS: HEMOGLOBIN 13.5 g/dL (12.0-18.0); MEAN CELL VOLUME 95.5 fl (80.0-94.0); MEAN CORPUSCULAR HEMOGLOBIN 31.5 pg (27.0-31.0); RBC 4.29 Mil/uL (4.40-5.90); RED CELL DISTRIBUTION WIDTH 14.1 % (11.5-14.5); WHITE BLOOD COUNT 11.1 K/uL (4.8-10.8)
[2018-01-12 06:44] LABS: ALB/GLOB RATIO 1.3 (1.0-2.1); ALBUMIN 4.2 g/dL (3.5-5.0); ALT/SGPT 23 U/L (21-72); AST/SGOT 23 U/L (17-59); BLOOD UREA NITROGEN 14 mg/dl (9-20); CALCIUM 9.3 mg/dL (8.4-10.2); GFR NON-AFRICAN AMERICAN > 60
[2018-01-12 07:46] VITALS: PULSE 76; TEMP 98.2; O2SAT 96
[2018-01-12 07:47] VITALS: BP 110/74
[2018-01-12] MEDS: Enoxaparin 40 mg Syringe SC SCH (08:45)
[2018-01-12] MEDS: Fluticasone-Salmeterol 250-50mcg Diskus IH SCH (09:01)
[2018-01-12] MEDS: guaiFENesin 600 mg ER Tab PO SCH (09:03)
[2018-01-12] MEDS: Tiotropium 18 mcg Cap For Inhalation IH SCH (09:05)
--- NOTE | 2018-01-12 09:22 | CP.PCM.PN ---
<Jeromy Hammer - Last Filed: 01/12/18 09:28> Subjective - Date & Time of Evaluation Date of Evaluation: 01/12/18 Time of Evaluation: :18 - Subjective Subjective: pt seen and evaluated at bedside. No acute events overnight. Pt reports sleeping fairly well overnight, however still has complaints of cough and mild SOB. Patti ating treatments without issue. OOB/ambulating w/o dizziness. Currently POX 93- 94% on 2L NC. Afebrile. Hemodynamically stable. Denies fever/chills, headaches, changes in vision, CP/SOB/Palpitations, N/V/D/C, urinary symptoms. Objective - Vital Signs/Intake and Output Vital Signs (last 24 hours): Temp Pulse Resp BP Pulse Ox 98.2 F 76 20 110/74 96 01/12/18 07:45 01/12/18 07:45 01/12/18 07:45 01/12/18 07:46 01/12/18 07:45 - Medications Medications: Current Medications Albuterol Sulfate (Albuterol 0.083% Inhal Fernanda (2.5 Mg/3 Ml) Ud) 2.5 mg INH RQ2 PRN PRN Reason: Shortness of Breath Albuterol/Ipratropium (Duoneb 3 Mg/0.5 Mg (3 Ml) Ud) 3 ml INH RQ4 [facility] Last Admin: 01/12/18 07:57 Dose: 3 ml Enoxaparin Sodium (Lovenox) 40 mg SC DAILY [facility]; Protocol Last Admin: 01/12/18 08:45 Dose: 40 mg Folic Acid (Folic Acid) 1 mg PO DAILY [facility] Last Admin: 01/12/18 09:02 Dose: 1 mg Guaifenesin (Mucinex La) 600 mg PO Q12 [facility] Last Admin: 01/12/18 09:03 Dose: 600 mg Methylprednisolone (Solu-Medrol) 40 mg IVP Q8H [facility] Last Admin: 01/12/18 08:45 Dose: 40 mg Nicotine (Nicoderm Cq) 1 patch TD DAILY [facility] Last Admin: 01/12/18 09:03 Dose: 1 patch Fluticasone/Salmeterol (Advair Diskus 250/50) 1 puff IH Q12 [facility] Last Admin: 01/12/18 09:01 Dose: 1 inhaler Thiamine HCl (Vitamin B1 Tab) 100 mg PO DAILY [facility] Last Admin: 01/12/18 09:05 Dose: 100 mg Tiotropium [place] (Spiriva) 18 mcg IH DAILY [facility] Last Admin: 01/12/18 09:05 Dose: 18 mcg - Labs Labs: 01/12/18 06:00 01/12/18 06:00 - Constitutional Appears: Non-toxic, No Acute Distress - Head Exam Head Exam: ATRAUMATIC - Eye Exam Eye Exam: EOMI, PERRL - ENT Exam ENT Exam: Mucous Membranes Moist - Respiratory Exam Respiratory Exam: Decreased Breath Sounds (decreased breath sounds b/l in mid- lower lung parekh.), Prolonged Expiratory Phase, Wheezes (scattered wheezes throughout both lung parekh.), NORMAL BREATHING PATTERN. absent: Accessory Muscle Use, Clear to Ausculation Bilateral, Rales, Rhonchi, Respiratory Distress - Cardiovascular Exam Cardiovascular Exam: REGULAR RHYTHM, RRR, +S1, +S2. absent: JVD, Rubs, Murmur - GI/Abdominal Exam GI & Abdominal Exam: Soft, Normal Bowel Sounds. absent: Tenderness - Extremities Exam Extremities Exam: Normal Capillary Refill, Normal Inspection. absent: Calf Tenderness, Pedal Edema - Neurological Exam Neurological Exam: Alert, Awake, CN II-XII Intact, Oriented x3 - Psychiatric Exam Psychiatric exam: Normal Affect, Normal Mood - Skin Skin Exam: Dry, Intact, Normal Color Assessment and Plan - Assessment and Plan (Free Text) Assessment: 61 y/o male with PMHx of COPD admitted for Acute COPD exacerbation secondary to environmental trigger exposure. Plan: 1) Acute COPD Exacerbation -afebrile -improving, however pt still wheezing with poor air flow and decreased breath sounds -c/w with Duo-Nebs Q4H [facility] -IV prednisone 40mg Q8H -mucinex -spirva 18mcg QD -O2 supplement, keep POX ~92% -follow up AM labs/trend treatment 2) Leukocytosis -afebrile -13. -currently receiving IV steroids 3) ETOH Abuse -B12/Folate/thiamine supplementation 4) Tobacco Abuse -nicotine patch 5) Diet -regular 6) Prophylaxis -Lovenox 40mg SC QD 7) Code Status -full code <AngBritta Zimmer - Last Filed: 01/12/18 16:10> Objective - Vital Signs/Intake and Output Vital Signs (last 24 hours): Temp Pulse Resp BP Pulse Ox 98.2 F 76 20 110/74 96 01/12/18 07:45 01/12/18 07:45 01/12/18 07:45 01/12/18 07:46 01/12/18 07:45 - Medications Medications: Current Medications Albuterol Sulfate (Albuterol 0.083% Inhal Fernanda (2.5 Mg/3 Ml) Ud) 2.5 mg INH RQ2 PRN PRN Reason: Shortness of Breath Albuterol/Ipratropium (Duoneb 3 Mg/0.5 Mg (3 Ml) Ud) 3 ml INH RQ4 [facility] Last Admin: 01/12/18 15:28 Dose: 3 ml Enoxaparin Sodium (Lovenox) 40 mg SC DAILY [facility]; Protocol Last Admin: 01/12/18 08:45 Dose: 40 mg Folic Acid (Folic Acid) 1 mg PO DAILY [facility] Last Admin: 01/12/18 09:02 Dose: 1 mg Guaifenesin (Mucinex La) 600 mg PO Q12 [facility] Last Admin: 01/12/18 09:03 Dose: 600 mg Methylprednisolone (Solu-Medrol) 40 mg IVP Q8H [facility] Last Admin: 01/12/18 08:45 Dose: 40 mg Nicotine (Nicoderm Cq) 1 patch TD DAILY [facility] Last Admin: 01/12/18 09:03 Dose: 1 patch Fluticasone/Salmeterol (Advair Diskus 250/50) 1 puff IH Q12 [facility] Last Admin: 01/12/18 09:01 Dose: 1 inhaler Thiamine HCl (Vitamin B1 Tab) 100 mg PO DAILY [facility] Last Admin: 01/12/18 09:05 Dose: 100 mg Tiotropium [place] (Spiriva) 18 mcg IH DAILY [facility] Last Admin: 01/12/18 09:05 Dose: 18 mcg - Labs Labs: 01/12/18 06:00 01/12/18 06:00 Attending/Attestation - Attestation I have personally seen and examined this patient.: Yes I have fully participated in the care of the patient.: Yes I have reviewed all pertinent clinical information, including history, physical exam and plan: Yes Notes (Text): 01/12/18 16:10 Seen examined and discussed with resident. Agree with findings and plan as above.
--- NOTE | 2018-01-12 12:26 | CP.PCM.PN ---
Subjective - Date & Time of Evaluation Date of Evaluation: 01/12/18 Time of Evaluation: 12:26 Objective - Vital Signs/Intake and Output Vital Signs (last 24 hours): Temp Pulse Resp BP Pulse Ox 98.2 F 76 20 110/74 96 01/12/18 07:45 01/12/18 07:45 01/12/18 07:45 01/12/18 07:46 01/12/18 07:45 - Medications Medications: Current Medications Albuterol Sulfate (Albuterol 0.083% Inhal Fernanda (2.5 Mg/3 Ml) Ud) 2.5 mg INH RQ2 PRN PRN Reason: Shortness of Breath Albuterol/Ipratropium (Duoneb 3 Mg/0.5 Mg (3 Ml) Ud) 3 ml INH RQ4 [facility] Last Admin: 01/12/18 11:10 Dose: 3 ml Enoxaparin Sodium (Lovenox) 40 mg SC DAILY [facility]; Protocol Last Admin: 01/12/18 08:45 Dose: 40 mg Folic Acid (Folic Acid) 1 mg PO DAILY [facility] Last Admin: 01/12/18 09:02 Dose: 1 mg Guaifenesin (Mucinex La) 600 mg PO Q12 [facility] Last Admin: 01/12/18 09:03 Dose: 600 mg Methylprednisolone (Solu-Medrol) 40 mg IVP Q8H [facility] Last Admin: 01/12/18 08:45 Dose: 40 mg Nicotine (Nicoderm Cq) 1 patch TD DAILY [facility] Last Admin: 01/12/18 09:03 Dose: 1 patch Fluticasone/Salmeterol (Advair Diskus 250/50) 1 puff IH Q12 [facility] Last Admin: 01/12/18 09:01 Dose: 1 inhaler Thiamine HCl (Vitamin B1 Tab) 100 mg PO DAILY [facility] Last Admin: 01/12/18 09:05 Dose: 100 mg Tiotropium [place] (Spiriva) 18 mcg IH DAILY [facility] Last Admin: 01/12/18 09:05 Dose: 18 mcg - Labs Labs: 01/12/18 06:00 01/12/18 06:00
--- NOTE | 2018-01-12 14:36 | CP.PCM.DIS ---
<Jeromy Hammer - Last Filed: 01/12/18 15:40> Provider - Provider Date of Admission: 01/11/18 16:03 Attending physician: Yared Ramachandran Time Spent in preparation of Discharge (in minutes): 30 Diagnosis - Discharge Diagnosis (1) COPD exacerbation Status: Acute Hospital Course - Lab Results Lab Results: Most Recent Lab Values WBC 11.1 K/uL (4.8-10.8) H 01/12/18 06:00 RBC 4.29 Mil/uL (4.40-5.90) L 01/12/18 06:00 Hgb 13.5 g/dL (12.0-18.0) 01/12/18 06:00 Hct 41.0 % (35.0-51.0) 01/12/18 06:00 MCV 95.5 fl (80.0-94.0) H 01/12/18 06:00 MCH 31.5 pg (27.0-31.0) H 01/12/18 06:00 MCHC 33.0 g/dL (33.0-37.0) 01/12/18 06:00 RDW 14.1 % (11.5-14.5) 01/12/18 06:00 Plt Count 293 K/uL (130-400) 01/12/18 06:00 MPV 7.4 fl (7.2-11.7) 01/10/18 17:49 Neut % (Auto) 59.7 % (50.0-75.0) 01/10/18 17:49 Lymph % (Auto) 17.7 % (20.0-40.0) L 01/10/18 17:49 Stephenson % (Auto) 10.7 % (0.0-10.0) H 01/10/18 17:49 Eos % (Auto) 10.7 % (0.0-4.0) H 01/10/18 17:49 Baso % (Auto) 1.2 % (0.0-2.0) 01/10/18 17:49 Neut # (Auto) 5.7 K/uL (1.8-7.0) 01/10/18 17:49 Lymph # (Auto) 1.7 K/uL (1.0-4.3) 01/10/18 17:49 Stephenson # (Auto) 1.0 K/uL (0.0-0.8) H 01/10/18 17:49 Eos # (Auto) 1.0 K/uL (0.0-0.7) H 01/10/18 17:49 Baso # (Auto) 0.1 K/uL (0.0-0.2) 01/10/18 17:49 pCO2 33 mm/Hg (35-45) L 01/10/18 22:58 pO2 76 mm/Hg (80-100) L 01/10/18 22:58 HCO3 26.1 mmol/L (21-28) 01/10/18 22:58 ABG pH 7.48 (7.35-7.45) H 01/10/18 22:58 ABG Total CO2 25.6 mmol/L (22-28) 01/10/18 22:58 ABG O2 Saturation 99.0 % (95-98) H 01/10/18 22:58 ABG O2 Content 19.0 ML/dL (15-23) 01/10/18 22:58 ABG Base Excess 1.7 mmol/L (-2.0-3.0) 01/10/18 22:58 ABG Hemoglobin 14.6 g/dL (11.7-17.4) 01/10/18 22:58 ABG Carboxyhemoglobin 4.2 % (0.5-1.5) H 01/10/18 22:58 POC ABG HHb (Measured) 0.9 % (0.0-5.0) 01/10/18 22:58 ABG Methemoglobin 2.5 % (0.0-3.0) 01/10/18 22:58 ABG O2 Capacity 19.2 mL/dL (16-24) 01/10/18 22:58 Otoniel Test Yes 01/10/18:58 A-a O2 Difference 82.0 mm/Hg 01/10/18 22:58 Hgb O2 Saturation 92.4 % (95.0-98.0) L 01/10/18 22:58 FiO2 28.0 % 01/10/18 22:58 Sodium 138 mmol/l (132-148) 01/12/18 06:00 Potassium 4.2 MMOL/L (3.6-5.0) 01/12/18 06:00 Chloride 107 mmol/L (98-107) 01/12/18 06:00 Carbon Dioxide 21 mmol/L (22-30) L 01/12/18 06:00 Anion Gap 14 (10-20) 01/12/18 06:00 BUN 14 mg/dl (9-20) 01/12/18 06:00 Creatinine 0.4 mg/dl (0.8-1.5) L 01/12/18 06:00 Est GFR ( Amer) > 60 01/12/18 06:00 Est GFR (Non-Af Amer) > 60 01/12/18 06:00 Random Glucose 143 mg/dL (75-110) H 01/12/18 06:00 Calcium 9.3 mg/dL (8.4-10.2) 01/12/18 06:00 Total Bilirubin 0.5 mg/dl (0.2-1.3) 01/12/18 06:00 AST 23 U/L (17-59) 01/12/18 06:00 ALT 23 U/L (21-72) 01/12/18 06:00 Alkaline Phosphatase 45 U/L (38-126) 01/12/18 06:00 Troponin I < 0.0120 ng/mL (0.00-0.120) 01/10/18 17:49 NT-Pro-B Natriuret Pep 48.3 pg/ml (0-900) 01/10/18 17:49 Total Protein 7.4 G/DL (6.3-8.2) 01/12/18 06:00 Albumin 4.2 g/dL (3.5-5.0) 01/12/18 06:00 Globulin 3.3 gm/dL (2.2-3.9) 01/12/18 06:00 Albumin/Globulin Ratio 1.3 (1.0-2.1) 01/12/18 06:00 Urine Opiates Screen Negative (NEGATIVE) 01/10/18 23:12 Urine Methadone Screen Negative (NEGATIVE) 01/10/18 23:12 Ur Barbiturates Screen Negative (NEGATIVE) 01/10/18 23:12 Ur Phencyclidine Scrn Negative (NEGATIVE) 01/10/18 23:12 Ur Amphetamines Screen Negative (NEGATIVE) 01/10/18 23:12 U Benzodiazepines Scrn Negative (NEGATIVE) 01/10/18 23:12 U Oth Cocaine Metabols Negative (NEGATIVE) 01/10/18 23:12 U Cannabinoids Screen Positive (NEGATIVE) H 01/10/18 23:12 Alcohol, Quantitative < 10 mg/dl (0-10) 01/10/18 23:12 - Hospital Course Hospital Course: 62 y/o male admitted for COPD exacerbation secondary to environmental trigger exposure at a family bb. Pt was treated with IV steroids and duo-nebs every four hours as well as spiriva and mucinex. CXR was clear and infectious etiology was ruled out. pt improved with treatments. After an uneventful hospital stay, he was discharged in stable condition. Discharge Exam - Head Exam Head Exam: ATRAUMATIC - Eye Exam Eye Exam: EOMI, PERRL. absent: Scleral icterus - Respiratory Exam Respiratory Exam: Clear to PA & Lateral, NORMAL BREATHING PATTERN, UNREMARKABLE. absent: Prolonged Expiratory Phase, Rales, Rhonchi, Wheezes - Cardiovascular Exam Cardiovascular Exam: REGULAR RHYTHM, RRR, +S1, +S2. absent: JVD, Rubs, Systolic Murmur - GI/Abdominal Exam GI & Abdominal Exam: Normal Bowel Sounds, Unremarkable - Extremities Exam Extremities exam: normal inspection - Neurological Exam Neurological exam: Alert, CN II-XII Intact, Normal Gait, Oriented x3 - Psychiatric Exam Psychiatric exam: Normal Affect, Normal Mood - Skin Skin Exam: Dry, Intact, Normal Color, Warm Discharge Plan - Discharge Medications Prescriptions: RX: Albuterol HFA [Ventolin HFA 90 mcg/actuation (8 g)] 1 - 2 puff IH Q4H PRN #1 bottle PRN Reason: Wheezing RX: Albuterol HFA [Ventolin HFA 90 mcg/actuation (8 g)] 2 puff IH Q4 #1 inhaler RX: Fluticasone/Salmeterol [Airduo Respiclick 113-14 Mcg] 2 puff IH Q12 #1 aer.pow.[email or web address] RX: predniSONE [predniSONE Tab] 20 mg PO DAILY #5 tab - Follow Up Plan Condition: STABLE Disposition: HOME/ ROUTINE Instructions: Exacerbation of COPD (DC) Additional Instructions: appointment made for january [address] Frey please at [facility] arrive at 12:30 to allow time for registration please take medication as prescribed any worsening of symptoms please return to ED for further evaluation and treatment Referrals: [facility] [Outside] Sallie Frey MD [Family Provider] - <Britta Fry - Last Filed: 01/12/18 16:01> Provider - Provider Date of Admission: 01/11/18 16:03 Attending physician: Yared Ramachandran [facility] Course - Lab Results Lab Results: Most Recent Lab Values WBC 11.1 K/uL (4.8-10.8) H 01/12/18 06:00 RBC 4.29 Mil/uL (4.40-5.90) L 01/12/18 06:00 Hgb 13.5 g/dL (12.0-18.0) 01/12/18 06:00 Hct 41.0 % (35.0-51.0) 01/12/18 06:00 MCV 95.5 fl (80.0-94.0) H 01/12/18 06:00 MCH 31.5 pg (27.0-31.0) H 01/12/18 06:00 MCHC 33.0 g/dL (33.0-37.0) 01/12/18 06:00 RDW 14.1 % (11.5-14.5) 01/12/18 06:00 Plt Count 293 K/uL (130-400) 01/12/18 06:00 MPV 7.4 fl (7.2-11.7) 01/10/18 17:49 Neut % (Auto) 59.7 % (50.0-75.0) 01/10/18 17:49 Lymph % (Auto) 17.7 % (20.0-40.0) L 01/10/18 17:49 Stephenson % (Auto) 10.7 % (0.0-10.0) H 01/10/18 17:49 Eos % (Auto) 10.7 % (0.0-4.0) H 01/10/18 17:49 Baso % (Auto) 1.2 % (0.0-2.0) 01/10/18 17:49 Neut # (Auto) 5.7 K/uL (1.8-7.0) 01/10/18 17:49 Lymph # (Auto) 1.7 K/uL (1.0-4.3) 01/10/18 17:49 Stephenson # (Auto) 1.0 K/uL (0.0-0.8) H 01/10/18 17:49 Eos # (Auto) 1.0 K/uL (0.0-0.7) H 01/10/18 17:49 Baso # (Auto) 0.1 K/uL (0.0-0.2) 01/10/18 17:49 pCO2 33 mm/Hg (35-45) L 01/10/18 22:58 pO2 76 mm/Hg (80-100) L 01/10/18 22:58 HCO3 26.1 mmol/L (21-28) 01/10/18 22:58 ABG pH 7.48 (7.35-7.45) H 01/10/18 22:58 ABG Total CO2 25.6 mmol/L (22-28) 01/10/18 22:58 ABG O2 Saturation 99.0 % (95-98) H 01/10/18 22:58 ABG O2 Content 19.0 ML/dL (15-23) 01/10/18 22:58 ABG Base Excess 1.7 mmol/L (-2.0-3.0) 01/10/18 22:58 ABG Hemoglobin 14.6 g/dL (11.7-17.4) 01/10/18 22:58 ABG Carboxyhemoglobin 4.2 % (0.5-1.5) H 01/10/18 22:58 POC ABG HHb (Measured) 0.9 % (0.0-5.0) 01/10/18 22:58 ABG Methemoglobin 2.5 % (0.0-3.0) 01/10/18 22:58 ABG O2 Capacity 19.2 mL/dL (16-24) 01/10/18 22:58 Otoniel Test Yes 01/10/18 22:58 A-a O2 Difference 82.0 mm/Hg 01/10/18 22:58 Hgb O2 Saturation 92.4 % (95.0-98.0) L 01/10/18 22:58 FiO2 28.0 % 01/10/18 22:58 Sodium 138 mmol/l (132-148) 01/12/18 06:00 Potassium 4.2 MMOL/L (3.6-5.0) 01/12/18 06:00 Chloride 107 mmol/L (98-107) 01/12/18 06:00 Carbon Dioxide 21 mmol/L (22-30) L 01/12/18 06:00 Anion Gap 14 (10-20) 01/12/18 06:00 BUN 14 mg/dl (9-20) 01/12/18 06:00 Creatinine 0.4 mg/dl (0.8-1.5) L 01/12/18 06:00 Est GFR ( Amer) > 60 01/12/18 06:00 Est GFR (Non-Af Amer) > 60 01/12/18 06:00 Random Glucose 143 mg/dL (75-110) H 01/12/18 06:00 Calcium 9.3 mg/dL (8.4-10.2) 01/12/18 06:00 Total Bilirubin 0.5 mg/dl (0.2-1.3) 01/12/18 06:00 AST 23 U/L (17-59) 01/12/18 06:00 ALT 23 U/L (21-72) 01/12/18 06:00 Alkaline Phosphatase 45 U/L (38-126) 01/12/18 06:00 Troponin I < 0.0120 ng/mL (0.00-0.120) 01/10/18 17:49 NT-Pro-B Natriuret Pep 48.3 pg/ml (0-900) 01/10/18 17:49 Total Protein 7.4 G/DL (6.3-8.2) 01/12/18 06:00 Albumin 4.2 g/dL (3.5-5.0) 01/12/18 06:00 Globulin 3.3 gm/dL (2.2-3.9) 01/12/18 06:00 Albumin/Globulin Ratio 1.3 (1.0-2.1) 01/12/18 06:00 Urine Opiates Screen Negative (NEGATIVE) 01/10/18 23:12 Urine Methadone Screen Negative (NEGATIVE) 01/10/18 23:12 Ur Barbiturates Screen Negative (NEGATIVE) 01/10/18 23:12 Ur Phencyclidine Scrn Negative (NEGATIVE) 01/10/18 23:12 Ur Amphetamines Screen Negative (NEGATIVE) 01/10/18 23:12 U Benzodiazepines Scrn Negative (NEGATIVE) 01/10/18 23:12 U Oth Cocaine Metabols Negative (NEGATIVE) 01/10/18 23:12 U Cannabinoids Screen Positive (NEGATIVE) H 01/10/18 23:12 Alcohol, Quantitative < 10 mg/dl (0-10) 01/10/18 23:12 Attending/Attestation - Attestation I have personally seen and examined this patient.: Yes I have fully participated in the care of the patient.: Yes I have reviewed all pertinent clinical information, including history, physical exam and plan: Yes Notes (Text): 01/12/18 16:01 Seen examined and discussed with resident. Agree with findings and plan as above.
== END 2018-01-12 16:29 | disposition home or self-care (01) | DRG 140 ==
LOC: H.ER 17:27 → H.ERHOLD 22:06 → H.MEDSURG1 01-11 12:20 → OBSVTOIN 01-11 16:03
PROVIDERS: ADMIT Internal Medicine; ATTEND Internal Medicine
PROC: 3E0F73Z Introduction of Anti-inflammatory into Respiratory Tract, Via Natural or Artificial Opening (ICD-10-PCS; principal; 2018-01-11)
DX: J44.1 Chronic obstructive pulmonary disease with (acute) exacerbation (principal); D72.828 Other elevated white blood cell count; F12.10 Cannabis abuse, uncomplicated; F10.10 Alcohol abuse, uncomplicated; F17.210 Nicotine dependence, cigarettes, uncomplicated; Z87.01 Personal history of pneumonia (recurrent)

== ENCOUNTER 2018-02-22 15:05 | Observation (INO) | payer MEDICAID ==
[2018-02-22 15:05] VITALS: BMI 20.5
[2018-02-22] MEDS ORDERED: Albuterol-Ipratrop 3 mg / 0.5 (3 ml) UD INH STA ×2 (15:58→15:59)
[2018-02-22 16:59] LABS: BASO # 0.1 K/uL (0.0-0.2); BASO % 1.2 % (0.0-2.0); EOS # 1.1 K/uL (0.0-0.7); EOS % 15.3 % (0.0-4.0); HEMOGLOBIN 13.5 g/dL (12.0-18.0); LYMPH # 1.3 K/uL (1.0-4.3); LYMPH % 18.2 % (20.0-40.0); MEAN CORPUSCULAR HEMOGLOBIN 31.4 pg (27.0-31.0); MEAN CORPUSCULAR HGB CONC 33.1 g/dL (33.0-37.0); MEAN PLATELET VOLUME 7.5 fl (7.2-11.7); MONO # 0.9 K/uL (0.0-0.8); MONO % 12.7 % (0.0-10.0); NEUT # 3.8 K/uL (1.8-7.0); NEUT % 52.6 % (50.0-75.0); RBC 4.3 Mil/uL (4.40-5.90); RED CELL DISTRIBUTION WIDTH 13.2 % (11.5-14.5); WHITE BLOOD COUNT 7.3 K/uL (4.8-10.8)
[2018-02-22 17:12] LABS: ALB/GLOB RATIO 1.1 (1.0-2.1); ALBUMIN 3.7 g/dL (3.5-5.0); ALT/SGPT 35 U/L (21-72); AST/SGOT 51 U/L (17-59); BLOOD UREA NITROGEN 11 mg/dl (9-20); CALCIUM 8.8 mg/dL (8.4-10.2); GFR NON-AFRICAN AMERICAN > 60
[2018-02-22 17:15] LABS: PROTHROMBIN TIME 10.8 Seconds (9.8-13.1)
--- NOTE | 2018-02-22 17:21 | ED PDOC ---
HPI: SOB/CHF/COPD Time Seen by Provider: 02/22/18 15:50 Chief Complaint (Nursing): Shortness Of Breath Chief Complaint (Provider): Shortness Of Breath History Per: Patient History/Exam Limitations: no limitations Onset/Duration Of Symptoms: Days (x 2) Current Symptoms Are (Timing): Still Present Initiating Event: Exposure To Smoke Additional Complaint(s): 62 year old male with a history of COPD presents to the ED with shortness of breath for 2 days. Patient reports that he was around people who were smoking cigars right before onset of symptoms. He also complains of chest tightness and a cough productive of clear sputum. Offers no other medical complaints. PMD: Dr. Shante Rizo Past Medical History Reviewed: Historical Data, Nursing Documentation, Vital Signs Vital Signs: Last Vital Signs Temp 97.6 F 02/22/18 15:27 Pulse 91 H 02/22/18 15:27 Resp 19 02/22/18 16:01 BP 107/76 02/22/18 15:27 Pulse Ox 93 L 02/22/18 16:01 - Medical History PMH: Asthma, COPD, Emphysema, Pneumonia Denies: HIV, Chronic Kidney Disease - Surgical History Surgical History: No Surg Hx - Family History Family History: States: Unknown Family Hx - Social History Current smoker - smoking cessation education provided: Yes (Light < 10 Cigarettes a day) - Immunization History Hx Tetanus Toxoid Vaccination: No Hx Influenza Vaccination: Yes Hx Pneumococcal Vaccination: Yes - Home Medications Home Medications: Ambulatory Orders Medication Instructions Recorded Albuterol 0.083% [Albuterol 0.083% 3 ml IH Q4H PRN 30 Days neb 11/05/17 Inhal Fernanda (2.5 mg/3 ml) UD] Tiotropium [Spiriva] 18 mcg IH DAILY #1 cap 11/05/17 Albuterol HFA [Ventolin HFA 90 1 - 2 puff IH Q4H PRN #1 bottle 01/12/18 mcg/actuation (8 g)] Fluticasone/Salmeterol [Airduo 2 puff IH Q12 #1 aer.[email or web address] 01/12/18 Respiclick 113-14 Mcg] - Allergies Allergies/Adverse Reactions: Allergies Allergy/AdvReac Type Severity Reaction Status Date / Time No Known Allergies Allergy Verified 02/22/18 15:27 Review of Systems ROS Statement: Except As Marked, All Systems Reviewed And Found Negative Constitutional: Negative for: Fever Cardiovascular: Positive for: Chest Pain (tightness) Respiratory: Positive for: Cough, Shortness of Breath, Sputum (clear) Physical Exam - Reviewed Nursing Documentation Reviewed: Yes Vital Signs Reviewed: Yes - Physical Exam Appears: Positive for: Non-toxic Head Exam: Positive for: ATRAUMATIC, NORMAL INSPECTION, NORMOCEPHALIC Skin: Positive for: Normal Color, Warm, Dry Eye Exam: Positive for: EOMI, Normal appearance, PERRL Neck: Positive for: Normal, Painless ROM, Supple Cardiovascular/Chest: Positive for: Regular Rate, Rhythm. Negative for: Murmur Respiratory: Positive for: Wheezing (bilateral), Respiratory Distress (mild), Other (decreased air movement) Gastrointestinal/Abdominal: Positive for: Normal Exam, Soft. Negative for: Te nderness Extremity: Positive for: Normal ROM (x 4). Negative for: Deformity Neurologic/Psych: Positive for: Alert, Oriented. Negative for: Motor/Sensory Deficits - Laboratory Results Result Diagrams: 02/22/18 16:51 02/22/18 16:51 - ECG O2 Sat by Pulse Oximetry: 93 (RA) Pulse Ox Interpretation: Normal Medical Decision Making Medical Decision Makin:59 Impression: COPD exacerbation Initial Plan: --EKG --CMP --CBC --Troponin --PTT/PT --CXR --Duoneb 3 ml INH --Duoneb 3 ml INH --Solumedrol 125 mg IVP --Blood cx --Peak flow pre/post --Peak flow pre/post 17:00 --Signed out to Dr. Gaston pending results of workup and further evaluation. Scribe Attestation: Documented by Shannon Saldivar, acting as a scribe for Lisa Melgar MD Provider Scribe Attestation: All medical record entries made by the Scribe were at my direction and personally dictated by me. I have reviewed the chart and agree that the record accurately reflects my personal performance of the history, physical exam, medical decision making, and the department course for this patient. I have also personally directed, reviewed, and agree with the discharge instructions and disposition. Disposition - Patient ED Disposition Is Patient to be Admitted: Transfer of Care - Disposition Disposition: Transfer of Care Disposition Time: 17:00 Forms: [employer] (Kyrgyz)
--- NOTE | 2018-02-22 18:06 | ED PDOC ---
- Laboratory Results Result Diagrams: 02/23/18 04:55 02/23/18 05:00 - ECG O2 Sat by Pulse Oximetry: 93 (RA) Medical Decision Making Medical Decision Makin --Patient signed out to this provider pending ER workup and reevaluation. 18:30 --Patient will be admitted to observation due to COPD exacerbation. pt gets sob while walking pt got nebs and steroids. Scribe Attestation: Documented by Shannon Saldivar acting as a scribe for Mar Gaston MD Provider Scribe Attestation: All medical record entries made by the Scribe were at my direction and persona lly dictated by me. I have reviewed the chart and agree that the record accurately reflects my personal performance of the history, physical exam, medical decision making, and the department course for this patient. I have also personally directed, reviewed, and agree with the discharge instructions and disposition. Disposition - Clinical Impression Clinical Impression: COPD exacerbation - POA Present On Arrival: None - Disposition Disposition: Hospitalized as Observation Patient Disposition Time: 18:30 Condition: STABLE
--- NOTE | 2018-02-22 18:24 | RAD ---
Date of service: 02/22/2018 HISTORY: SOB COMPARISON: 01/10/2018 FINDINGS: LUNGS: Hyperinflation of the lungs without focal infiltrate. PLEURA: No significant pleural effusion identified, no pneumothorax apparent. CARDIOVASCULAR: No significant atherosclerotic calcification of the aorta Normal cardiac size. No pulmonary vascular congestion. OSSEOUS STRUCTURES: No significant abnormalities. VISUALIZED UPPER ABDOMEN: Normal. OTHER FINDINGS: None. IMPRESSION: Hyperinflation of the lungs. No evidence of focal infiltrate or CHF.
--- NOTE | 2018-02-22 18:57 | CP.PCM.HP ---
<Brianna Mckenzie - Last Filed: 02/22/18 19:13> History of Present Illness - History of Present Illness History of Present Illness: 62 years old male with hx of Asthma, COPD and heavy tobacco abuser presents to the ED c/o shortness of breath and wheezing for 2 days associated productive cough with white clear sputum, also complains of chest tightness. Otherwise he denies fever, chest pain, palpitation, headache. On evaluation in ED patient AAO x 3 with mild respiratory distress, able to speak in full sentences. O2 sat on NC 93%. PMD: at [facility] PMH: Asthma, COPD, Emphysema, Pneumonia PSH: Right Neck cyst removed SH: Smokes <10 cigarettes daily; uses marijuana; Lives with the family, Daily use of Alcohol FH: No known family medical hx Allergies: NKDA Medication: as bellow Next of Kin: Cousin, Alia (as per demographics) Code Status: full code Present on Admission - Present on Admission Any Indicators Present on Admission: No Review of Systems - Review of Systems All systems: reviewed and no additional remarkable complaints except (HPI) Past Patient History - Infectious Disease Hx of Infectious Diseases: None - Tetanus Immunizations Tetanus Immunization: Unknown - Past Medical History & Family History Past Medical History?: Yes - Past Social History Smoking Status: Light Smoker < 10 Cigarettes Daily - CARDIAC Hx Cardiac Disorders: No - PULMONARY Hx Asthma: Yes Hx Chronic Obstructive Pulmonary Disease (COPD): Yes Hx Emphysema: Yes Hx Pneumonia: Yes - NEUROLOGICAL Hx Neurological Disorder: No - HEENT Hx HEENT Problems: Yes - RENAL Hx Chronic Kidney Disease: No - ENDOCRINE/METABOLIC Hx Endocrine Disorders: No - HEMATOLOGICAL/ONCOLOGICAL Hx Human Immunodeficiency Virus (HIV): No - INTEGUMENTARY Hx Dermatological Problems: No - MUSCULOSKELETAL/RHEUMATOLOGICAL Hx Musculoskeletal Disorders: No Hx Falls: No - GASTROINTESTINAL Hx Gastrointestinal Disorders: No - PSYCHIATRIC Hx Psychophysiologic Disorder: No Hx Substance Use: No - SURGICAL HISTORY Hx Surgeries: Yes (neck cyst right side) Other/Comment: right neck cyst removal 5 years ago - ANESTHESIA Hx Anesthesia: Yes Hx Anesthesia Reactions: No Hx Malignant Hyperthermia: No Meds Allergies/Adverse Reactions: Allergies Allergy/AdvReac Type Severity Reaction Status Date / Time No Known Allergies Allergy Verified 02/22/18 15:27 Physical Exam - Constitutional Appears: No Acute Distress - Head Exam Head Exam: NORMAL INSPECTION - Eye Exam Eye Exam: EOMI Pupil Exam: PERRL - Respiratory Exam Respiratory Exam: Decreased Breath Sounds, Rhonchi, Wheezes - Cardiovascular Exam Cardiovascular Exam: REGULAR RHYTHM. absent: Tachycardia, Systolic Murmur - GI/Abdominal Exam GI & Abdominal Exam: Normal Bowel Sounds, Soft. absent: Distended, Tenderness - Extremities Exam Extremities exam: Negative for: pedal edema - Neurological Exam Neurological exam: Alert, CN II-XII Intact, Oriented x3 - Skin Skin Exam: Dry, Warm Results - Vital Signs Recent Vital Signs: Last Vital Signs Temp 98.7 F 02/22/18 18:33 Pulse 87 02/22/18 18:33 Resp 19 02/22/18 18:34 BP 134/82 02/22/18 18:33 Pulse Ox 94 L 02/22/18 18:34 - Labs Result Diagrams: 02/22/18 16:51 02/22/18 16:51 Labs: Laboratory Results - last 24 hr 02/22/18 02/22/18 02/22/18 16:51 16:51 16:51 WBC 7.3 RBC 4.30 L Hgb 13.5 Hct 40.9 MCV 95.0 H MCH 31.4 H MCHC 33.1 RDW 13.2 Plt Count 279 MPV 7.5 Neut % (Auto) 52.6 Lymph % (Auto) 18.2 L Blair % (Auto) 12.7 H Eos % (Auto) 15.3 H Baso % (Auto) 1.2 Neut # (Auto) 3.8 Lymph # (Auto) 1.3 Blair # (Auto) 0.9 H Eos # (Auto) 1.1 H Baso # (Auto) 0.1 PT 10.8 INR 1.0 APTT 35.0 Sodium 133 Potassium 3.8 Chloride 100 Carbon Dioxide 23 Anion Gap 14 BUN 11 Creatinine 0.4 L Est GFR ( Amer) > 60 Est GFR (Non-Af Amer) > 60 Random Glucose 85 Calcium 8.8 Total Bilirubin 0.4 AST 51 ALT 35 Alkaline Phosphatase 67 Troponin I < 0.0120 Total Protein 7.1 Albumin 3.7 Globulin 3.4 Albumin/Globulin Ratio 1.1 Assessment & Plan - Assessment and Plan (Free Text) Assessment: 62 years old male with hx of Asthma with COPD and heavy tobacco abuser admitted with COPD exacerbation Plan: COPD exacerbation - s/p Duoneb X2 and methylprednisolone in ED - CXR: hyperinflation of the lungs, no infiltrates or CHF. - continue Duoneb Q4H and PRN Q2h - Methylprednisolone BID - Mucinex - O2 - labs in am Heavy tobacco use - Nicotine patch Alcohol abuse - no withdrawal sx - Thiamine/Folic acid DVT prophylaxis - lovenox <MartinezErika enriquezDonovan D - Last Filed: 02/22/18 19:49> Results - Vital Signs Recent Vital Signs: Last Vital Signs Temp 98.7 F 02/22/18 18:33 Pulse 87 02/22/18 18:33 Resp 19 02/22/18 18:34 BP 134/82 02/22/18 18:33 Pulse Ox 93 L 02/22/18 19:08 - Labs Result Diagrams: 02/22/18 16:51 02/22/18 16:51 Labs: Laboratory Results - last 24 hr 02/22/18 02/22/18 02/22/18 16:51 16:51 16:51 WBC 7.3 RBC 4.30 L Hgb 13.5 Hct 40.9 MCV 95.0 H MCH 31.4 H MCHC 33.1 RDW 13.2 Plt Count 279 MPV 7.5 Neut % (Auto) 52.6 Lymph % (Auto) 18.2 L Blair % (Auto) 12.7 H Eos % (Auto) 15.3 H Baso % (Auto) 1.2 Neut # (Auto) 3.8 Lymph # (Auto) 1.3 Blair # (Auto) 0.9 H Eos # (Auto) 1.1 H Baso # (Auto) 0.1 PT 10.8 INR 1.0 APTT 35.0 Sodium 133 Potassium 3.8 Chloride 100 Carbon Dioxide 23 Anion Gap 14 BUN 11 Creatinine 0.4 L Est GFR ( Amer) > 60 Est GFR (Non-Af Amer) > 60 Random Glucose 85 Calcium 8.8 Total Bilirubin 0.4 AST 51 ALT 35 Alkaline Phosphatase 67 Troponin I < 0.0120 Total Protein 7.1 Albumin 3.7 Globulin 3.4 Albumin/Globulin Ratio 1.1 Attending/Attestation - Attestation I have personally seen and examined this patient.: Yes I have fully participated in the care of the patient.: Yes I have reviewed all pertinent clinical information: Yes Notes (Text): 12/17/18 19:48 Patient seen and examined with resident. Case discussed and agreed with assessment and plan
[2018-02-22] MEDS ORDERED: Albuterol-Ipratrop 3 mg / 0.5 (3 ml) UD INH PRN (19:51)
[2018-02-22] MEDS ORDERED: methylPREDNISolone 60 MG in Sodium Chloride 0.9% 50 ML IV SCH (21:00)
[2018-02-22] MEDS: Albuterol-Ipratrop 3 mg / 0.5 (3 ml) UD INH SCH ×2 (22:48→23:34)
[2018-02-23] MEDS: Albuterol-Ipratrop 3 mg / 0.5 (3 ml) UD INH SCH ×4 (04:49→15:38)
[2018-02-23 05:38] LABS: BASO % 0.4 % (0.0-2.0); EOS % 0.1 % (0.0-4.0); HEMOGLOBIN 13.6 g/dL (12.0-18.0); LYMPH # 0.4 K/uL (1.0-4.3); LYMPH % 10.4 % (20.0-40.0); MEAN CELL VOLUME 94.8 fl (80.0-94.0); MEAN CORPUSCULAR HEMOGLOBIN 31.7 pg (27.0-31.0); MEAN CORPUSCULAR HGB CONC 33.4 g/dL (33.0-37.0); MONO # 0.1 K/uL (0.0-0.8); NEUT # 3.3 K/uL (1.8-7.0); NEUT % 87.1 % (50.0-75.0); NRBC % 0.1 % (0.0-0.0); RBC 4.3 Mil/uL (4.40-5.90); RED CELL DISTRIBUTION WIDTH 13.2 % (11.5-14.5); WHITE BLOOD COUNT 3.8 K/uL (4.8-10.8)
[2018-02-23 06:25] LABS: ALB/GLOB RATIO 1.1 (1.0-2.1); ALBUMIN 3.7 g/dL (3.5-5.0); ALT/SGPT 34 U/L (21-72); AST/SGOT 39 U/L (17-59); BLOOD UREA NITROGEN 14 mg/dl (9-20); CALCIUM 9.2 mg/dL (8.4-10.2); GFR NON-AFRICAN AMERICAN > 60
--- NOTE | 2018-02-23 06:44 | CARD ---
APPROVED REPORT Date of service: 02/22/2018 EKG Measurement Heart [id number] [id number] <Conclusion> Normal sinus rhythm Normal ECG
[2018-02-23] MEDS: guaiFENesin-DM 600-30 mg ER Tab PO SCH ×2 (09:20→19:08)
[2018-02-23] MEDS: Enoxaparin 40 mg Syringe SC SCH (09:22)
[2018-02-23] MEDS: Tiotropium 18 mcg Cap For Inhalation IH SCH (09:23)
--- NOTE | 2018-02-23 13:14 | CP.PCM.PN ---
<Rickie Stewart - Last Filed: 02/23/18 14:59> Subjective - Date & Time of Evaluation Date of Evaluation: 02/23/18 Time of Evaluation: 09:25 - Subjective Subjective: Patient seen and examined at bedside in AM. Patient sitting comfortably, reports dry cough w/o sputum which he is unable to expectorate. SOB improved compare to yesterday but still reports getting SOB with ambulation(going to bathroom). Patient on room air with O2 sat 93%. Denies any CP, SOB, headache, Fever, chills, nausea. Appetite WNL. Objective - Vital Signs/Intake and Output Vital Signs (last 24 hours): Temp Pulse Resp BP Pulse Ox 98.2 F 67 20 102/74 96 02/23/18 11:39 02/23/18 11:39 02/23/18 11:39 02/23/18 11:39 02/23/18 11:39 - Medications Medications: Current Medications Albuterol/Ipratropium (Duoneb 3 Mg/0.5 Mg (3 Ml) Ud) 3 ml INH RQ4 KARTHIKEYAN Last Admin: 02/23/18 11:25 Dose: 3 ml Albuterol/Ipratropium (Duoneb 3 Mg/0.5 Mg (3 Ml) Ud) 3 ml INH RQ6 PRN PRN Reason: Shortness of Breath Aspirin (Ecotrin) 81 mg PO DAILY [facility] Last Admin: 02/23/18 09:21 Dose: 81 mg Atorvastatin Calcium (Lipitor) 40 mg PO DAILY [facility] Last Admin: 02/23/18 09:21 Dose: 40 mg Azithromycin (Zithromax) 500 mg PO DAILY KAR[facility]IKEY[facility]; Protocol Last Admin: 02/23/18 11:33 Dose: 500 mg Enoxaparin Sodium (Lovenox) 40 mg SC DAILY [facility]; Protocol Last Admin: 02/23/18 09:22 Dose: 40 mg Folic Acid (Folic Acid) 1 mg PO DAILY [facility] Last Admin: 02/23/18 09:22 Dose: 1 mg Guaifenesin/Dextromethorphan (Mucinex-Dm 600-30 Mg) 1 tab PO BID [facility] Last Admin: 02/23/18 09:20 Dose: 1 tab Home Med (Fluticasone/Salmeterol [Airduo Respiclick 113-14 Mcg]) 2 puff IH Q12 [facility] Methylprednisolone (Solu-Medrol) 60 mg IV Q12 [facility] Last Admin: 02/23/18 09:22 Dose: 60 mg Nicotine (Nicoderm Cq) 1 patch TD DAILY [facility] Last Admin: 02/23/18 09:20 Dose: 1 patch Thiamine HCl (Vitamin B1 Tab) 100 mg PO DAILY [facility] Last Admin: 02/23/18 09:21 Dose: 100 mg Tiotropium [place] (Spiriva) 18 mcg IH DAILY [facility] Last Admin: 02/23/18 09:23 Dose: 18 mcg - Labs Labs: 02/23/18 04:55 02/23/18 05:00 PT 10.8 Seconds (9.8-13.1) 02/22/18 16:51 INR 1.0 02/22/18 16:51 APTT 35.0 Seconds (25.6-37.1) 02/22/18 16:51 - Constitutional Appears: Well, No Acute Distress - Head Exam Head Exam: ATRAUMATIC, NORMOCEPHALIC - Eye Exam Eye Exam: EOMI - ENT Exam ENT Exam: Mucous Membranes Moist - Respiratory Exam Respiratory Exam: Rhonchi. absent: Accessory Muscle Use, Rales, Wheezes, Respiratory Distress - Cardiovascular Exam Cardiovascular Exam: REGULAR RHYTHM, +S1, +S2. absent: Murmur - GI/Abdominal Exam GI & Abdominal Exam: Soft, Normal Bowel Sounds. absent: Distended, Tenderness - Extremities Exam Extremities Exam: absent: Calf Tenderness, Pedal Edema, Tenderness - Neurological Exam Neurological Exam: Alert, Awake, Oriented x3 - Psychiatric Exam Psychiatric exam: Normal Affect, Normal Mood - Skin Skin Exam: Dry, Intact, Normal Color Assessment and Plan - Assessment and Plan (Free Text) Assessment: 62 years old male with hx of Asthma and COPD and heavy tobacco abuser admitted with COPD exacerbation. CXR: Hyperinflation w/o infiltrate or CHF EKG: NSR Plan: Plan: COPD exacerbation - Improving, VSS stable - CBC, CMP WNL - s/p Duoneb X2 and methylprednisolone in ED - continue Duoneb Q4H and PRN Q6h - Methylprednisolone 60 mg BID - Start Azithromycin 500 mg QD - Mucinex - Monitor respiratory status Heavy tobacco use - Nicotine patch Alcohol abuse - no withdrawal sx - Thiamine/Folic acid DVT prophylaxis - lovenox <Martinez,Donovan D - Last Filed: 02/23/18 16:46> Objective - Vital Signs/Intake and Output Vital Signs (last 24 hours): Temp Pulse Resp BP Pulse Ox 98.4 F 88 18 104/75 99 02/23/18 15:47 02/23/18 15:47 02/23/18 15:47 02/23/18 15:47 02/23/18 15:47 - Medications Medications: Current Medications Albuterol/Ipratropium (Duoneb 3 Mg/0.5 Mg (3 Ml) Ud) 3 ml INH RQ4 [facility]AR[facility]KEY[facility] Last Admin: 02/23/18 15:38 Dose: 3 ml Albuterol/Ipratropium (Duoneb 3 Mg/0.5 Mg (3 Ml) Ud) 3 ml INH RQ6 PRN PRN Reason: Shortness of Breath Aspirin (Ecotrin) 81 mg PO DAILY [facility] Last Admin: 02/23/18 09:21 Dose: 81 mg Atorvastatin Calcium (Lipitor) 40 mg PO DAILY [facility] Last Admin: 02/23/18 09:21 Dose: 40 mg Azithromycin (Zithromax) 500 mg PO DAILY [facility]; Protocol Last Admin: 02/23/18 11:33 Dose: 500 mg Enoxaparin Sodium (Lovenox) 40 mg SC DAILY [facility]; Protocol Last Admin: 02/23/18 09:22 Dose: 40 mg Folic Acid (Folic Acid) 1 mg PO DAILY [facility] Last Admin: 02/23/18 09:22 Dose: 1 mg Guaifenesin/Dextromethorphan (Mucinex-Dm 600-30 Mg) 1 tab PO BID [facility] Last Admin: 02/23/18 09:20 Dose: 1 tab Home Med (Fluticasone/Salmeterol [Airduo Respiclick 113-14 Mcg]) 2 puff IH Q12 [facility] Methylprednisolone (Solu-Medrol) 60 mg IV Q12 [facility] Last Admin: 02/23/18 09:22 Dose: 60 mg Nicotine (Nicoderm Cq) 1 patch TD DAILY [facility] Last Admin: 02/23/18 09:20 Dose: 1 patch Thiamine HCl (Vitamin B1 Tab) 100 mg PO DAILY [facility] Last Admin: 02/23/18 09:21 Dose: 100 mg Tiotropium [place] (Spiriva) 18 mcg IH DAILY [facility] Last Admin: 02/23/18 09:23 Dose: 18 mcg - Labs Labs: 02/23/18 04:55 02/23/18 05:00 PT 10.8 Seconds (9.8-13.1) 02/22/18 16:51 INR 1.0 02/22/18 16:51 APTT 35.0 Seconds (25.6-37.1) 02/22/18 16:51 Attending/Attestation - Attestation I have personally seen and examined this patient.: Yes I have fully participated in the care of the patient.: Yes I have reviewed all pertinent clinical information, including history, physical exam and plan: Yes Notes (Text): 02/23/18 16:44 Patient seen and examined with resident. Case discussed and agreed with assessment. Patient admitted improvement but still having mild SOB.
[2018-02-23] MEDS ORDERED: Albuterol-Ipratrop 3 mg / 0.5 (3 ml) UD INH PRN (16:58)
[2018-02-23] MEDS ORDERED: Albuterol-Ipratrop 3 mg / 0.5 (3 ml) UD INH SCH (17:00)
[2018-02-23] MEDS ORDERED: Alum-Mag Hydrox-Simethicone Susp (30 mL) PO ONE (19:56)
[2018-02-24] MEDS ORDERED: Albuterol-Ipratrop 3 mg / 0.5 (3 ml) UD INH PRN (00:30)
[2018-02-24] MEDS: Albuterol-Ipratrop 3 mg / 0.5 (3 ml) UD INH SCH ×3 (01:02→13:26)
[2018-02-24 06:07] VITALS: RESP 20
[2018-02-24] MEDS: guaiFENesin-DM 600-30 mg ER Tab PO SCH (08:47)
[2018-02-24] MEDS: Enoxaparin 40 mg Syringe SC SCH (08:48)
[2018-02-24] MEDS: Tiotropium 18 mcg Cap For Inhalation IH SCH (08:49)
[2018-02-24] MEDS ORDERED: MethylPREDNISolone 40 mg Vial IV SCH (09:00)
--- NOTE | 2018-02-24 10:30 | CP.PCM.DIS ---
<Rickie Stewart - Last Filed: 02/24/18 14:36> Provider - Provider Date of Admission: 02/22/18 18:30 Attending physician: Donovan Martinez MD Consults: 02/22/18 22:15 Social Work Referral Routine Comment: initiate info on substance abuse Physician Instructions: Reason For Exam: use Marijuana occasionally Time Spent in preparation of Discharge (in minutes): 35 Diagnosis - Discharge Diagnosis (1) COPD exacerbation Status: Acute Hospital Course - Lab Results Lab Results: Micro Results 02/22/18 16:55 Blood-Venous Blood Culture - Preliminary NO GROWTH AFTER 24 HOURS 02/22/18 16:45 Blood-Venous Blood Culture - Preliminary NO GROWTH AFTER 24 HOURS Most Recent Lab Values WBC 3.8 K/uL (4.8-10.8) L 02/23/18 04:55 RBC 4.30 Mil/uL (4.40-5.90) L 02/23/18 04:55 Hgb 13.6 g/dL (12.0-18.0) 02/23/18 04:55 Hct 40.8 % (35.0-51.0) 02/23/18 04:55 MCV 94.8 fl (80.0-94.0) H 02/23/18 04:55 MCH 31.7 pg (27.0-31.0) H 02/23/18 04:55 MCHC 33.4 g/dL (33.0-37.0) 02/23/18 04:55 RDW 13.2 % (11.5-14.5) 02/23/18 04:55 Plt Count 284 K/uL (130-400) 02/23/18 04:55 MPV 8.0 fl (7.2-11.7) 02/23/18 04:55 Neut % (Auto) 87.1 % (50.0-75.0) H 02/23/18 04:55 Lymph % (Auto) 10.4 % (20.0-40.0) L 02/23/18 04:55 [place] % (Auto) 2.0 % (0.0-10.0) 02/23/18 04:55 Eos % (Auto) 0.1 % (0.0-4.0) 02/23/18 04:55 Baso % (Auto) 0.4 % (0.0-2.0) 02/23/18 04:55 Neut # (Auto) 3.3 K/uL (1.8-7.0) 02/23/18 04:55 Lymph # (Auto) 0.4 K/uL (1.0-4.3) L 02/23/18 04:55 [place] # (Auto) 0.1 K/uL (0.0-0.8) 02/23/18 04:55 Eos # (Auto) 0.0 K/uL (0.0-0.7) 02/23/18 04:55 Baso # (Auto) 0.0 K/uL (0.0-0.2) 02/23/18 04:55 PT 10.8 Seconds (9.8-13.1) 02/22/18 16:51 INR 1.0 02/22/18 16:51 APTT 35.0 Seconds (25.6-37.1) 02/22/18 16:51 Sodium 135 mmol/l (132-148) 02/23/18 05:00 Potassium 4.0 MMOL/L (3.6-5.0) 02/23/18 05:00 Chloride 101 mmol/L (98-107) 02/23/18 05:00 Carbon Dioxide 25 mmol/L (22-30) 02/23/18 05:00 Anion Gap 13 (10-20) 02/23/18 05:00 BUN 14 mg/dl (9-20) 02/23/18 05:00 Creatinine 0.5 mg/dl (0.8-1.5) L 02/23/18 05:00 Est GFR ( Amer) > 60 02/23/18 05:00 Est GFR (Non-Af Amer) > 60 02/23/18 05:00 Random Glucose 157 mg/dL (75-110) H 02/23/18 05:00 Calcium 9.2 mg/dL (8.4-10.2) 02/23/18 05:00 Total Bilirubin 0.5 mg/dl (0.2-1.3) 02/23/18 05:00 AST 39 U/L (17-59) 02/23/18 05:00 ALT 34 U/L (21-72) 02/23/18 05:00 Alkaline Phosphatase 63 U/L (38-126) 02/23/18 05:00 Troponin I < 0.0120 ng/mL (0.00-0.120) 02/22/18 16:51 Total Protein 7.3 G/DL (6.3-8.2) 02/23/18 05:00 Albumin 3.7 g/dL (3.5-5.0) 02/23/18 05:00 Globulin 3.5 gm/dL (2.2-3.9) 02/23/18 05:00 Albumin/Globulin Ratio 1.1 (1.0-2.1) 02/23/18 05:00 - Hospital Course Hospital Course: Mr. Millan is a 62 y/o M with PMHx of COPD, asthma and heacy tobacco use presents to ED with shortness of breath, wheezing and worsening cough for 2 days. Patient evaluated in ED recevied Duoneb x 2 and Solumedrol with improvement in symptoms. Patient diagnosed with COPD exacerbation and admitted for observation. CXR showed hyperinflation w/o infiltrate or CHF and EKG NSR. Patient received Duonebs, solumedrol, Azithromycin mucinex, Nicotine patch, thiamine and Folic acid. Patient's respiratory symptoms improved over next 2 days and VSS. Patient to be discharged home on Albuterol, Azithromycin and Modrol dosepack, singulair and advised to continue home medications. Patient counseled about smoking cessation and advised to f/u with PCP. Discharge Medications New Medications - Medrol dosepack, Follow instructions as directed - Azithromycin 500 mg QD x 5 days - SIngulair 10 mg QD x 30 days Home Medications - Ventolin HFA 1-2 puffs INH Q4hr PRN for wheezing - Albuterol 2.5mg/3ml neb INH Q4 PRN for wheezing - Atorvastatin 40 mg PO daily - Aspirin 81 mg daily - Spiriva 18 mcg INH daily - AirDuo 113-14 mcg 2 puff Q12 - Thiamine 100 mg PO daily - Folic acid 1 mg PO daily Discharge Exam - Head Exam Head Exam: ATRAUMATIC, NORMOCEPHALIC - Eye Exam Eye Exam: EOMI, Normal appearance - ENT Exam ENT Exam: Mucous Membranes Moist - Neck Exam Neck exam: Full Rom - Respiratory Exam Respiratory Exam: Clear to PA & Lateral. absent: Rales, Wheezes, Respiratory Distress - Cardiovascular Exam Cardiovascular Exam: REGULAR RHYTHM, +S1, +S2. absent: Systolic Murmur - GI/Abdominal Exam GI & Abdominal Exam: Normal Bowel Sounds. absent: Distended, Tenderness - Neurological Exam Neurological exam: Alert, Normal Gait, Oriented x3 - Psychiatric Exam Psychiatric exam: Normal Affect, Normal Mood - Skin Skin Exam: Dry, Intact, Normal Color Discharge Plan - Discharge Medications Prescriptions: Azithromycin [Zithromax] 500 mg PO DAILY #5 tab Benzonatate [Tessalon Perles] 200 mg PO TID 7 Days sgl Methylprednisolone [Medrol Dose Pack (21 tabs)] 4 mg PO ASDIR #21 mg Montelukast Sodium [Singulair] 10 mg PO HS #30 tab - Follow Up Plan Condition: STABLE Disposition: HOME/ ROUTINE Patient education suggested?: Yes Instructions: Exacerbation of COPD (DC) Additional Instructions: F/U with Dr. Trujillo at [facility] on 03/01/18 @ 11:00 AM Referrals: [facility] [Outside] Sallie Frey MD [Family Provider] - <Diana Tyson - Last Filed: 02/24/18 15:41> Provider - Provider Date of Admission: 02/22/18 18:30 Attending physician: Donovan Martinez MD Consults: 02/22/18 22:15 Social Work Referral Routine Comment: initiate info on substance abuse Physician Instructions: Reason For Exam: use Marijuana occasionally Hospital Course - Lab Results Lab Results: Micro Results 02/22/18 16:55 Blood-Venous Blood Culture - Preliminary NO GROWTH AFTER 24 HOURS 02/22/18 16:45 Blood-Venous Blood Culture - Preliminary NO GROWTH AFTER 24 HOURS Most Recent Lab Values WBC 3.8 K/uL (4.8-10.8) L 02/23/18 04:55 RBC 4.30 Mil/uL (4.40-5.90) L 02/23/18 04:55 Hgb 13.6 g/dL (12.0-18.0) 02/23/18 04:55 Hct 40.8 % (35.0-51.0) 02/23/18 04:55 MCV 94.8 fl (80.0-94.0) H 02/23/18 04:55 MCH 31.7 pg (27.0-31.0) H 02/23/18 04:55 MCHC 33.4 g/dL (33.0-37.0) 02/23/18 04:55 RDW 13.2 % (11.5-14.5) 02/23/18 04:55 Plt Count 284 K/uL (130-400) 02/23/18 04:55 MPV 8.0 fl (7.2-11.7) 02/23/18 04:55 Neut % (Auto) 87.1 % (50.0-75.0) H 02/23/18 04:55 Lymph % (Auto) 10.4 % (20.0-40.0) L 02/23/18 04:55 [place] % (Auto) 2.0 % (0.0-10.0) 02/23/18 04:55 Eos % (Auto) 0.1 % (0.0-4.0) 02/23/18 04:55 Baso % (Auto) 0.4 % (0.0-2.0) 02/23/18 04:55 Neut # (Auto) 3.3 K/uL (1.8-7.0) 02/23/18 04:55 Lymph # (Auto) 0.4 K/uL (1.0-4.3) L 02/23/18 04:55 [place] # (Auto) 0.1 K/uL (0.0-0.8) 02/23/18 04:55 Eos # (Auto) 0.0 K/uL (0.0-0.7) 02/23/18 04:55 Baso # (Auto) 0.0 K/uL (0.0-0.2) 02/23/18 04:55 PT 10.8 Seconds (9.8-13.1) 02/22/18 16:51 INR 1.0 02/22/18 16:51 APTT 35.0 Seconds (25.6-37.1) 02/22/18 16:51 Sodium 135 mmol/l (132-148) 02/23/18 05:00 Potassium 4.0 MMOL/L (3.6-5.0) 02/23/18 05:00 Chloride 101 mmol/L (98-107) 02/23/18 05:00 Carbon Dioxide 25 mmol/L (22-30) 02/23/18 05:00 Anion Gap 13 (10-20) 02/23/18 05:00 BUN 14 mg/dl (9-20) 02/23/18 05:00 Creatinine 0.5 mg/dl (0.8-1.5) L 02/23/18 05:00 Est GFR ( Amer) > 60 02/23/18 05:00 Est GFR (Non-Af Amer) > 60 02/23/18 05:00 Random Glucose 157 mg/dL (75-110) H 02/23/18 05:00 Calcium 9.2 mg/dL (8.4-10.2) 02/23/18 05:00 Total Bilirubin 0.5 mg/dl (0.2-1.3) 02/23/18 05:00 AST 39 U/L (17-59) 02/23/18 05:00 ALT 34 U/L (21-72) 02/23/18 05:00 Alkaline Phosphatase 63 U/L (38-126) 02/23/18 05:00 Troponin I < 0.0120 ng/mL (0.00-0.120) 02/22/18 16:51 Total Protein 7.3 G/DL (6.3-8.2) 02/23/18 05:00 Albumin 3.7 g/dL (3.5-5.0) 02/23/18 05:00 Globulin 3.5 gm/dL (2.2-3.9) 02/23/18 05:00 Albumin/Globulin Ratio 1.1 (1.0-2.1) 02/23/18 05:00 Attending/Attestation - Attestation I have personally seen and examined this patient.: Yes I have fully participated in the care of the patient.: Yes I have reviewed all pertinent clinical information, including history, physical exam and plan: Yes
[2018-02-24] MEDS ORDERED: MethylPREDNISolone 40 mg Vial IVP ONE (11:00)
[2018-02-24] MEDS ORDERED: methylPREDNISolone 40 MG in Sodium Chloride 0.9% 50 ML IV ONE (12:00)
[2018-02-24 16:01] VITALS: BP 114/71; PULSE 68; TEMP 97.9
[2018-02-26 00:10] VITALS: O2SAT 93
== END 2018-02-24 15:40 | disposition home or self-care (01) ==
LOC: H.ER 15:05 → H.ERHOLD 18:30 → H.TEL 21:34
DX: J44.1 Chronic obstructive pulmonary disease with (acute) exacerbation (principal); F17.210 Nicotine dependence, cigarettes, uncomplicated; F12.90 Cannabis use, unspecified, uncomplicated; F10.10 Alcohol abuse, uncomplicated; Y90.9 Presence of alcohol in blood, level not specified
CPT/HCPCS: 36415; 71045; 80053; 84484; 85025; 85610; 85730; 87040; 93005; 94640; 96374; 99285; G0378; J1650; J2920; J2930

== ENCOUNTER 2018-03-26 22:00 | Emergency (ER) | payer MEDICAID ==
[2018-03-26 22:30] VITALS: BMI 20.9
[2018-03-26 22:32] VITALS: O2SAT 96
[2018-03-26] MEDS ORDERED: Albuterol-Ipratrop 3 mg / 0.5 (3 ml) UD INH STA ×3 (23:01)
--- NOTE | 2018-03-26 23:14 | ED PDOC ---
HPI: SOB/CHF/COPD Time Seen by Provider: 03/26/18 22:30 Chief Complaint (Nursing): Respiratory Distress History Per: Patient History/Exam Limitations: no limitations Onset/Duration Of Symptoms: Days (2) Current Symptoms Are (Timing): Still Present Additional Complaint(s): 62 year old with Hx of COPD (no ICU admits), active smoker presenting with shortness of breath. STates he's been feeling this for 2 days, using his inhaler without relief. States he used his pump 7 times to day and felt so ill he did not smoke cigarettes and instead used a nicotine patch. Denies fevers. States he has a cough productive of white frothy phlegm. Denies sick contacts. Denies chest pain. States he has "a lot of gas" as well. PMD: [facility] Past Medical History Vital Signs: Last Vital Signs Temp 98.2 F 03/26/18 22:15 Pulse 92 H 03/26/18 22:15 Resp 22 03/26/18 22:34 BP 136/87 03/26/18 22:15 Pulse Ox 96 03/26/18 22:15 - Medical History PMH: Asthma, COPD, Emphysema, Pneumonia Denies: HIV, Chronic Kidney Disease - Family History Family History: States: Unknown Family Hx - Immunization History Hx Tetanus Toxoid Vaccination: No Hx Influenza Vaccination: Yes Hx Pneumococcal Vaccination: Yes - Home Medications Home Medications: Ambulatory Orders Medication Instructions Recorded Albuterol 0.083% [Albuterol 0.083% 3 ml IH Q4H PRN 30 Days neb 11/05/17 Inhal Fernanda (2.5 mg/3 ml) UD] Tiotropium [Spiriva] 18 mcg IH DAILY #1 cap 11/05/17 Albuterol HFA [Ventolin HFA 90 1 - 2 puff IH Q4H PRN #1 bottle 01/12/18 mcg/actuation (8 g)] Fluticasone/Salmeterol [Airduo 2 puff IH Q12 #1 aer.pow.ba 01/12/18 Respiclick 113-14 Mcg] Aspirin [Ecotrin] 81 mg PO DAILY 02/22/18 Atorvastatin [Lipitor] 40 mg PO DAILY 02/22/18 Azithromycin [Zithromax] 500 mg PO DAILY #5 tab 02/24/18 Benzonatate [Tessalon Perles] 200 mg PO TID 7 Days sgl 02/24/18 Fluticasone/Salmeterol [Airduo 2 puff IH Q12 02/24/18 Respiclick 113-14 Mcg] Folic Acid 1 mg PO DAILY tab 02/24/18 Methylprednisolone [Medrol Dose 4 mg PO ASDIR #21 mg 02/24/18 Pack (21 tabs)] Montelukast Sodium [Singulair] 10 mg PO HS #30 tab 02/24/18 Thiamine [Vitamin B1 Tab] 100 mg PO DAILY tab 02/24/18 Omeprazole 20 mg PO DAILY #30 capsule. 03/27/18 predniSONE [predniSONE Tab] 60 mg PO DAILY #9 tab 03/27/18 - Allergies Allergies/Adverse Reactions: Allergies Allergy/AdvReac Type Severity Reaction Status Date / Time No Known Allergies Allergy Verified 03/26/18 22:29 Review of Systems ROS Statement: Except As Marked, All Systems Reviewed And Found Negative Cardiovascular: Negative for: Chest Pain Respiratory: Positive for: Cough, Shortness of Breath, Wheezing Physical Exam - Reviewed Nursing Documentation Reviewed: Yes Vital Signs Reviewed: Yes - Physical Exam Appears: Positive for: Well, Non-toxic, No Acute Distress Head Exam: Positive for: ATRAUMATIC, NORMAL INSPECTION, NORMOCEPHALIC Skin: Positive for: Normal Color, Warm, DRY Eye Exam: Positive for: EOMI, Normal appearance, PERRL ENT: Positive for: Normal ENT Inspection Neck: Positive for: Normal, Painless ROM Cardiovascular/Chest: Positive for: Regular Rate, Rhythm Respiratory: Positive for: Wheezing, Other (Prolonged expiratory phase). Negative for: Respiratory Distress Gastrointestinal/Abdominal: Positive for: Normal Exam, Soft Back: Positive for: Normal Inspection Extremity: Positive for: Normal ROM Neurologic/Psych: Positive for: Alert, Oriented - Laboratory Results Result Diagrams: 03/26/18 23:30 03/26/18 23:30 - ECG O2 Sat by Pulse Oximetry: 96 Medical Decision Making Medical Decision MakinPM Hx of COPD, Asthma presenting with exacerbation --Patient has audible wheeze, stable vitals currently --Will treat with nebs, steroids, and closely monitor 1AM --Patient is no longer wheezing --93-94% on RA, likely normal for patient given hx of COPD --Will prescribe steroid for 3 days --PPI for indigestion --STrongly encouraged followup with PMD in 2 - 3 days --Very well appearing upon discharge Disposition - Clinical Impression Clinical Impression: COPD exacerbation - Patient ED Disposition Is Patient to be Admitted: No - Disposition Referrals: Hortencia Johnson MD [Family Provider] - Disposition: Routine/Home Disposition Time: 01:00 Condition: IMPROVED Prescriptions: Omeprazole 20 mg PO DAILY #30 capsule. predniSONE [predniSONE Tab] 60 mg PO DAILY #9 tab Instructions: Chronic Obstructive Pulmonary Disease (COPD), Including Emphysema Forms: [employer] (Polish)
[2018-03-26] MEDS ORDERED: Albuterol-Ipratrop 3 mg / 0.5 (3 ml) UD ONE (23:28)
[2018-03-26 23:51] LABS: VENOUS BLOOD GAS PCO2 39 mmHg (40-60); VENOUS BLOOD GAS PO2 70 mm/Hg (30-55); VENOUS BLOOD PH 7.45 (7.32-7.43)
[2018-03-27 00:26] LABS: BASO # 0.1 K/uL (0.0-0.2); EOS # 0.4 K/uL (0.0-0.7); EOS % 5.4 % (0.0-4.0); HEMOGLOBIN 13.6 g/dL (12.0-18.0); LYMPH # 1.6 K/uL (1.0-4.3); LYMPH % 20.9 % (20.0-40.0); MEAN CELL VOLUME 93.8 fl (80.0-94.0); MEAN CORPUSCULAR HEMOGLOBIN 31.4 pg (27.0-31.0); MEAN CORPUSCULAR HGB CONC 33.4 g/dL (33.0-37.0); MEAN PLATELET VOLUME 7.5 fl (7.2-11.7); MONO # 1.1 K/uL (0.0-0.8); MONO % 13.6 % (0.0-10.0); NEUT # 4.6 K/uL (1.8-7.0); NEUT % 59.1 % (50.0-75.0); RBC 4.33 Mil/uL (4.40-5.90); RED CELL DISTRIBUTION WIDTH 13.7 % (11.5-14.5); WHITE BLOOD COUNT 7.8 K/uL (4.8-10.8)
[2018-03-27 00:39] LABS: BLOOD UREA NITROGEN 12 mg/dl (9-20); CALCIUM 9.2 mg/dL (8.4-10.2); GFR NON-AFRICAN AMERICAN > 60
[2018-03-27 01:54] VITALS: BP 128/81; PULSE 81; RESP 17; TEMP 98.5
--- NOTE | 2018-03-27 10:43 | RAD ---
Date of service: 03/26/2018 HISTORY: cough, COPD COMPARISON: Chest radiograph dated 02/22/2018. FINDINGS: LUNGS: Hyperinflated lungs with flattened diaphragms. No active pulmonary disease. PLEURA: No significant pleural effusion identified, no pneumothorax apparent. CARDIOVASCULAR: Aortic atherosclerotic calcifications. Cardiomediastinal silhouette within normal limits. OSSEOUS STRUCTURES: Unchanged. VISUALIZED UPPER ABDOMEN: Normal. OTHER FINDINGS: None. IMPRESSION: No active disease. COPD configuration.
--- NOTE | 2018-03-27 13:06 | CARD ---
APPROVED REPORT Date of service: 03/26/2018 EKG Measurement Heart [id number] <Conclusion> Normal sinus rhythm Normal ECG
== END 2018-03-27 01:53 | disposition home or self-care (01) ==
LOC: H.ER 22:00
DX: J44.1 Chronic obstructive pulmonary disease with (acute) exacerbation (principal)
CPT/HCPCS: 71045; 80048; 82803; 85025; 93005; 96374; 96375; 99283; J2930

== ENCOUNTER 2018-04-18 15:50 | Emergency (ER) | payer MEDICAID ==
[2018-04-18 15:51] VITALS: BMI 20.9
[2018-04-18] MEDS ORDERED: Albuterol-Ipratrop 3 mg / 0.5 (3 ml) UD ONE ×2 (16:13→16:23)
[2018-04-18] MEDS ORDERED: Albuterol-Ipratrop 3 mg / 0.5 (3 ml) UD INH STA (16:14)
--- NOTE | 2018-04-18 16:29 | ED PDOC ---
HPI: SOB/CHF/COPD Time Seen by Provider: 04/18/18 16:04 Chief Complaint (Nursing): Respiratory Distress Chief Complaint (Provider): Respiratory Distress History Per: Patient History/Exam Limitations: no limitations Onset/Duration Of Symptoms: Days (3x days) Current Symptoms Are (Timing): Still Present Severity: Moderate Additional Complaint(s): 62 year old male with a past medical history of COPD (well known to the ED for COPD exacerbation) and smoking presents to the ED for an evaluation of shortness of breath progressing for 3x days. Patient reports having associated chest tightness and a cough productive of yellow sputum. Patient reports taking his home medications with minimal relief. Patient reports having episodes of hot and cold sweats. Otherwise, patient denies having fevers, leg swelling, and known sick contacts. PMD: [facility] Past Medical History Reviewed: Historical Data, Nursing Documentation, Vital Signs Vital Signs: Last Vital Signs Temp 98.0 F 04/18/18 15:58 Pulse 92 H 04/18/18 15:58 Resp 22 04/18/18 16:14 BP 153/80 H 04/18/18 15:58 Pulse Ox 98 04/18/18 16:14 SANDOVAL Report Viewed: Yes - Medical History PMH: Asthma, COPD, Emphysema, Pneumonia Denies: HIV, Chronic Kidney Disease - Surgical History Other surgeries: neck cyst (rght side) - Family History Family History: States: No Known Family Hx - Social History Current smoker - smoking cessation education provided: Yes Alcohol: None Drugs: Cannabis - Immunization History Hx Tetanus Toxoid Vaccination: No Hx Influenza Vaccination: Yes Hx Pneumococcal Vaccination: Yes - Home Medications Home Medications: Ambulatory Orders Medication Instructions Recorded RX: Albuterol 0.083% [Albuterol 3 ml IH Q4H PRN 30 Days neb 11/05/17 0.083% Inhal Fernanda (2.5 mg/3 ml) UD] RX: Tiotropium [Spiriva] 18 mcg IH DAILY #1 cap 11/05/17 RX: Albuterol HFA [Ventolin HFA 90 1 - 2 puff IH Q4H PRN #1 bottle 01/12/18 mcg/actuation (8 g)] RX: Fluticasone/Salmeterol [Airduo 2 puff IH Q12 #1 aer.pow.ba 01/12/18 Respiclick 113-14 Mcg] RX: Aspirin [Ecotrin] 81 mg PO DAILY 02/22/18 RX: Atorvastatin [Lipitor] 40 mg PO DAILY 02/22/18 Fluticasone/Salmeterol [Airduo 2 puff IH Q12 02/24/18 Respiclick 113-14 Mcg] Methylprednisolone [Medrol Dose 4 mg PO ASDIR #21 mg 02/24/18 Pack (21 tabs)] Montelukast Sodium [Singulair] 10 mg PO HS #30 tab 02/24/18 RX: Azithromycin [Zithromax] 500 mg PO DAILY #5 tab 02/24/18 RX: Benzonatate [Tessalon Perles] 200 mg PO TID 7 Days sgl 02/24/18 RX: Folic Acid 1 mg PO DAILY tab 02/24/18 RX: Thiamine [Vitamin B1 Tab] 100 mg PO DAILY tab 02/24/18 RX: Omeprazole 20 mg PO DAILY #30 capsule. 03/27/18 RX: predniSONE [predniSONE Tab] 60 mg PO DAILY #9 tab 03/27/18 Albuterol 0.083% [Albuterol 3 ml IH Q4 PRN #50 neb 04/18/18 Sulfate 3 Ml] RX: Albuterol HFA [Ventolin HFA 90 2 puff IH Q4H PRN #1 inh 04/18/18 mcg/actuation (8 g)] RX: Prednisone 50 mg PO DAILY #4 tablet 04/18/18 - Allergies Allergies/Adverse Reactions: Allergies Allergy/AdvReac Type Severity Reaction Status Date / Time No Known Allergies Allergy Verified 03/26/18 22:29 Review of Systems ROS Statement: Except As Marked, All Systems Reviewed And Found Negative Constitutional: Positive for: Other (episodes of hot and cold sweats). Negative for: Fever Cardiovascular: Positive for: Other (chest tightness) Respiratory: Positive for: Cough, Shortness of Breath, Sputum (yellow) Musculoskeletal: Negative for: Other (leg swelling) Physical Exam - Reviewed Nursing Documentation Reviewed: Yes Vital Signs Reviewed: Yes - Physical Exam Appears: Positive for: Non-toxic, In Acute Distress (acute respiratory distr ess). Negative for: Well (mildy cachectic) Head Exam: Positive for: ATRAUMATIC, NORMOCEPHALIC Skin: Positive for: Warm, Dry Eye Exam: Positive for: EOMI, PERRL ENT: Negative for: Pharyngeal Erythema, Tonsillar Exudate Neck: Positive for: Painless ROM, Supple Cardiovascular/Chest: Positive for: Regular Rate, Rhythm, Chest Non Tender. Negative for: Murmur Respiratory: Positive for: Wheezing (diffuse wheezing, rhonchi, and accessory muscle use), Respiratory Distress Gastrointestinal/Abdominal: Positive for: Soft. Negative for: Tenderness Back: Positive for: Normal Inspection. Negative for: Decreased ROM Extremity: Positive for: Normal ROM. Negative for: Deformity Lymphatic: Negative for: Adenopathy Neurologic/Psych: Positive for: Alert, Oriented (3x). Negative for: Motor/Sensory Deficits - Laboratory Results Result Diagrams: 04/18/18 16:38 04/18/18 16:38 - ECG ECG: Positive for: Interpreted By Me, Viewed By Me ECG Rhythm: Positive for: Normal QRS, Normal ST Segment, Sinus Rhythm (normal) Rate: 85 O2 Sat by Pulse Oximetry: 98 (RA) Pulse Ox Interpretation: Normal - Critical Care Total Time (In Min): 30 Documented Critical Care: Time excludes all time spent performint seperately billable procedures Medical Decision Making Medical Decision Makin:04 Initial impression: 62 year old male with COPD exacerbation. Differential diagnoses include, but are not limited to influenza and pneumonia. Initial plan: * EKG * ABG * B-type natriuretic peptide * CMP * troponin I * CBC with differential * PT and PTT * blood culture * influenza AB * duoneb 9 ml INH * solumedrol 125 mg IVP * nebulizer treatment * peak flow pre post treatment * reevaluation * CXR Hyperinflation but no acute abnormalities Labs with no emergently significant abnormalities 1929 On reevaluation pt feeling much better with markedly decreased wheeze on exam. Stable for dc. Scribe Attestation: Documented by Hortencia Ureña, acting as a scribe for Sirisha Mathews MD. Provider Scribe Attestation: All medical record entries made by the Scribe were at my direction and personally dictated by me. I have reviewed the chart and agree that the record accurately reflects my personal performance of the history, physical exam, medical decision making, and the department course for this patient. I have also personally directed, reviewed, and agree with the discharge instructions and disposition Disposition - Clinical Impression Clinical Impression: COPD exacerbation Counseled Patient/Family Regarding: Studies Performed, Diagnosis, Need For Followup, Rx Given, Smoking Cessation - Disposition Referrals: [facility] [Outside] - 04/19/18 Disposition: Routine/Home Disposition Time: 19:36 Condition: STABLE Prescriptions: Albuterol 0.083% [Albuterol Sulfate 3 Ml] 3 ml IH Q4 PRN #50 neb PRN Reason: asthma RX: Albuterol HFA [Ventolin HFA 90 mcg/actuation (8 g)] 2 puff IH Q4H PRN #1 inh PRN Reason: ASTHMA RX: Prednisone 50 mg PO DAILY #4 tablet Instructions: Exacerbation of COPD (DC)
[2018-04-18 16:36] LABS: ABG ALLEN TEST YES; ARTERIAL BLOOD GAS HCO3 30.7 mmol/L (21-28); ARTERIAL BLOOD GAS O2 SAT 100.5 % (95-98); ARTERIAL BLOOD GAS PCO2 44 mm/Hg (35-45); ARTERIAL BLOOD GAS PH 7.47 (7.35-7.45); ARTERIAL BLOOD GAS PO2 104 mm/Hg (80-100); ARTERIAL BLOOD GAS TCO2 33.4 mmol/L (22-28)
[2018-04-18 16:44] LABS: BASO # 0.1 K/uL (0.0-0.2); BASO % 1.4 % (0.0-2.0); EOS # 0.4 K/uL (0.0-0.7); EOS % 6.8 % (0.0-4.0); HEMOGLOBIN 13.6 g/dL (12.0-18.0); LYMPH # 0.8 K/uL (1.0-4.3); LYMPH % 13.9 % (20.0-40.0); MEAN CELL VOLUME 95.4 fl (80.0-94.0); MEAN CORPUSCULAR HGB CONC 33.5 g/dL (33.0-37.0); MEAN PLATELET VOLUME 7.5 fl (7.2-11.7); MONO # 0.7 K/uL (0.0-0.8); NEUT # 3.5 K/uL (1.8-7.0); NEUT % 64.9 % (50.0-75.0); RBC 4.26 Mil/uL (4.40-5.90); WHITE BLOOD COUNT 5.4 K/uL (4.8-10.8)
[2018-04-18 16:50] LABS: PROTHROMBIN TIME 10.9 Seconds (9.8-13.1)
[2018-04-18 16:53] LABS: PARTIAL THROMBOPLASTIN TIME 33.5 Seconds (25.6-37.1)
[2018-04-18 17:04] LABS: ALB/GLOB RATIO 1.3 (1.0-2.1); ALBUMIN 4.3 g/dL (3.5-5.0); ALT/SGPT 25 U/L (21-72); AST/SGOT 52 U/L (17-59); BLOOD UREA NITROGEN 10 mg/dl (9-20); CALCIUM 9.6 mg/dL (8.4-10.2); GFR NON-AFRICAN AMERICAN > 60
[2018-04-18 17:16] LABS: B-TYPE NATRIURETIC PEPTIDE 39.1 pg/ml (0-900)
--- NOTE | 2018-04-18 18:17 | RAD ---
Date of service: 04/18/2018 HISTORY: sob COMPARISON: Chest radiograph dated 03/26/2018. FINDINGS: LUNGS: No active pulmonary disease. PLEURA: No significant pleural effusion identified, no pneumothorax apparent. CARDIOVASCULAR: Aortic atherosclerotic calcifications. Cardiomediastinal silhouette stably prominent. OSSEOUS STRUCTURES: Unchanged VISUALIZED UPPER ABDOMEN: Normal. OTHER FINDINGS: None. IMPRESSION: No active disease.
[2018-04-18 19:06] VITALS: RESP 19
[2018-04-18 19:52] VITALS: BP 124/74; TEMP 98.2
[2018-04-18 22:39] VITALS: PULSE 85; O2SAT 98
--- NOTE | 2018-04-19 09:10 | CARD ---
APPROVED REPORT Date of service: 04/18/2018 EKG Measurement Heart [id number] <Conclusion> Normal sinus rhythm Normal ECG
== END 2018-04-18 19:45 | disposition home or self-care (01) ==
LOC: H.ER 15:50
DX: J44.0 Chronic obstructive pulmonary disease with (acute) lower respiratory infection (principal); F17.200 Nicotine dependence, unspecified, uncomplicated; J44.1 Chronic obstructive pulmonary disease with (acute) exacerbation
CPT/HCPCS: 36600; 71045; 80053; 82803; 83880; 84484; 85025; 85610; 85730; 87040; 87804; 93005; 96374; 99284; J2930

== ENCOUNTER 2018-04-23 11:22 | Emergency (ER) | payer MEDICAID ==
[2018-04-23 11:22] VITALS: BMI 20.9
[2018-04-23] MEDS ORDERED: Albuterol-Ipratrop 3 mg / 0.5 (3 ml) UD INH STA (12:15)
[2018-04-23] MEDS ORDERED: Morphine 4 MG/ML VIAL ONE (12:32)
[2018-04-23] MEDS ORDERED: Albuterol-Ipratrop 3 mg / 0.5 (3 ml) UD ONE (12:32)
--- NOTE | 2018-04-23 12:37 | ED PDOC ---
HPI: Trauma/Fall - HPI Time Seen by Provider: 04/23/18 12:05 Chief Complaint (Nursing): Rib Injury Chief Complaint (Provider): Left side pain History Per: Patient History/Exam Limitations: no limitations Onset/Duration Of Symptoms: Other (at 22:30 last night) Additional Complaint(s): 62 year old male presents to the ED after falling last night. Patient states that around 22:30 last night, he slipped on a piece of paper on the floor and fell down. Patient states he drank "3 beers" last night. States he was able to pick himself up from the floor and tried to go to sleep the rest of the night but was unable to due to pain on the left side of the body. He reports pain is worse with coughing and with deep inspiration. Further state he has a history of COPD but unable to take his medication this morning. Patient is uncertain if he struck his head and uncertain of LOC. Denies neck pain, extremity pain, hemoptysis, hematuria, nausea, vomiting, or anticoagulant use. PMD: [facility] Past Medical History Reviewed: Historical Data, Nursing Documentation, Vital Signs Vital Signs: Last Vital Signs Temp 97.9 F 04/23/18 11:32 Pulse 97 H 04/23/18 11:32 Resp 18 04/23/18 11:32 BP 115/72 04/23/18 11:32 Pulse Ox 93 L 04/23/18 11:32 - Medical History PMH: Asthma, COPD, Emphysema, Pneumonia Denies: HIV, Chronic Kidney Disease - Surgical History Surgical History: No Surg Hx - Family History Family History: States: Unknown Family Hx - Immunization History Hx Tetanus Toxoid Vaccination: No Hx Influenza Vaccination: Yes Hx Pneumococcal Vaccination: Yes - Home Medications Home Medications: Ambulatory Orders Medication Instructions Recorded RX: Albuterol 0.083% [Albuterol 3 ml IH Q4H PRN 30 Days neb 11/05/17 0.083% Inhal Fernanda (2.5 mg/3 ml) UD] RX: Tiotropium [Spiriva] 18 mcg IH DAILY #1 cap 11/05/17 RX: Albuterol HFA [Ventolin HFA 90 1 - 2 puff IH Q4H PRN #1 bottle 01/12/18 mcg/actuation (8 g)] RX: Fluticasone/Salmeterol [Airduo 2 puff IH Q12 #1 aer.pow.ba 01/12/18 Respiclick 113-14 Mcg] RX: Aspirin [Ecotrin] 81 mg PO DAILY 02/22/18 RX: Atorvastatin [Lipitor] 40 mg PO DAILY 02/22/18 Fluticasone/Salmeterol [Airduo 2 puff IH Q12 02/24/18 Respiclick 113-14 Mcg] Methylprednisolone [Medrol Dose 4 mg PO ASDIR #21 mg 02/24/18 Pack (21 tabs)] Montelukast Sodium [Singulair] 10 mg PO HS #30 tab 02/24/18 RX: Azithromycin [Zithromax] 500 mg PO DAILY #5 tab 02/24/18 RX: Benzonatate [Tessalon Perles] 200 mg PO TID 7 Days sgl 02/24/18 RX: Folic Acid 1 mg PO DAILY tab 02/24/18 RX: Thiamine [Vitamin B1 Tab] 100 mg PO DAILY tab 02/24/18 RX: Omeprazole 20 mg PO DAILY #30 giulia. 03/27/18 RX: predniSONE [predniSONE Tab] 60 mg PO DAILY #9 tab 03/27/18 Albuterol 0.083% [Albuterol 3 ml IH Q4 PRN #50 neb 04/18/18 Sulfate 3 Ml] RX: Albuterol HFA [Ventolin HFA 90 2 puff IH Q4H PRN #1 inh 04/18/18 mcg/actuation (8 g)] RX: Prednisone 50 mg PO DAILY #4 tablet 04/18/18 Acetaminophen with Codeine 1 - 2 each PO Q6 #12 tablet 04/23/18 [Tylenol with Codeine #3 Tablet] RX: Ibuprofen [Motrin Tab] 600 mg PO Q6 PRN #10 tab 04/23/18 - Allergies Allergies/Adverse Reactions: Allergies Allergy/AdvReac Type Severity Reaction Status Date / Time No Known Allergies Allergy Verified 03/26/18 22:29 Review of Systems ROS Statement: Except As Marked, All Systems Reviewed And Found Negative Respiratory: Negative for: Hemoptysis Gastrointestinal: Negative for: Nausea, Vomiting Genitourinary Male: Negative for: Hematuria Musculoskeletal: Positive for: Other (Left side pain). Negative for: Neck Pain, Arm Pain, Leg Pain Physical Exam - Reviewed Nursing Documentation Reviewed: Yes Vital Signs Reviewed: Yes - Physical Exam Appears: Positive for: Non-toxic, No Acute Distress Head Exam: Positive for: ATRAUMATIC, NORMAL INSPECTION, NORMOCEPHALIC Skin: Positive for: Normal Color, Warm, Dry Eye Exam: Positive for: Normal appearance ENT: Positive for: Normal ENT Inspection Neck: Positive for: Normal, Painless ROM Cardiovascular/Chest: Positive for: Regular Rate, Rhythm, Other (Chest is tender on left axillary chest wall; small ecchymotic region at area of tenderness) Respiratory: Positive for: Normal Breath Sounds. Negative for: Wheezing, Respiratory Distress Gastrointestinal/Abdominal: Positive for: Tenderness (LUQ). Negative for: Other (ecchymosis to abdomen) Back: Positive for: Normal Inspection, L CVA Tenderness. Negative for: R CVA Tenderness, Vertebral Tenderness (midline vertebral tenderness including c spine), Other (ecchymosis) Neurologic/Psych: Positive for: Alert, Oriented (x3) - Laboratory Results Result Diagrams: 04/23/18 12:45 04/23/18 12:45 - ECG O2 Sat by Pulse Oximetry: 93 (RA) Pulse Ox Interpretation: Abnormal Medical Decision Making Medical Decision Making: Initial Impression: Left sided pain Initial Plan: --Type and screen stat --CT abd/pelvis --CT chest --CT head --ECG --Alcohol serum stat --CMP --CPK --Troponin stat --CBC --PTT --Prothrombin time --Albuterol 3mL INH --Morphine 4mg IV --Zofran 4mg IV --Peak flow --Urinalysis 12:48 Chest X-ray FINDINGS: LUNGS: No active pulmonary disease. PLEURA: No significant pleural effusion identified, no pneumothorax apparent. CARDIOVASCULAR: No aortic atherosclerotic calcification present. Normal cardiac size. No pulmonary vascular congestion. OSSEOUS STRUCTURES: No significant abnormalities. VISUALIZED UPPER ABDOMEN: Normal. OTHER FINDINGS: None. IMPRESSION: No active disease. 14:[address] FINDINGS: HEMORRHAGE: No intracranial hemorrhage. BRAIN: No mass effect or edema. No significant atrophy. Moderate periventricular white matter lucency consistent with chronic microvascular ischemic change. Old bilateral thalamic lacunar infarcts. These were not evident in 2012. VENTRICLES: Unremarkable. No hydrocephalus. CALVARIUM: Unremarkable. PARANASAL SINUSES: Complete opacification of the left maxillary sinus likely reflecting chronic sinusitis. This is unchanged from 20/12. MASTOID AIR CELLS: Unremarkable as visualized. No inflammatory changes. OTHER FINDINGS: None. IMPRESSION: No intracranial mass, hemorrhage or evidence of acute infarct. Chronic white matter ischemic change. Bilateral old thalamic lacunar infarcts. 15:[address] FINDINGS: LUNGS: No infiltrate. No evidence of pulmonary contusion. Mild centrilobular pulmonary emphysema. MEDIASTINUM: Unremarkable thoracic aorta. No aneurysm. Normal sized heart. Main pulmonary artery unremarkable. No vascular congestion. No lymphadenopathy. There is atherosclerotic calcification of the thoracic aorta PLEURA: No pleural fluid. No pneumothorax. BONES: No fracture. No destructive lesion. UPPER ABDOMEN: Rounded low-density left renal mass, 2.8 cm, measures 7 Hounsfield units. Consistent with cyst. OTHER FINDINGS: None. IMPRESSION: No evidence of thoracic visceral injury. No pneumothorax/hemothorax. Mild centrilobular pulmonary emphysema. 15:23 CT abd/pelvis FINDINGS: LOWER THORAX: Unremarkable. LIVER: Normal size, contour and attenuation. No laceration. No biliary dilatation. Two small low-attenuation masses, 8 mm and 5 mm, unchanged. GALLBLADDER AND BILE DUCTS: Unremarkable. PANCREAS: Unremarkable. No gross lesion or ductal dilatation. SPLEEN: Unremarkable. ADRENALS: Unremarkable. No mass. KIDNEYS AND URETERS: Unremarkable. No hydronephrosis. No solid mass. VASCULATURE: Unremarkable. No aortic aneurysm. There is atherosclerotic calcification of the abdominal aorta and iliac vessels. BOWEL: Unremarkable. No obstruction. No gross mural thickening. APPENDIX: Not identified. No secondary findings to suggest acute appendicitis. PERITONEUM: Unremarkable. No free fluid. No free air. LYMPH NODES: Unremarkable. No enlarged lymph nodes. BLADDER: Unremarkable. REPRODUCTIVE: Normal prostate BONES: No acute fracture. OTHER FINDINGS: None. IMPRESSION: No evidence of intra-abdominal visceral injury. No evidence of hemoperitoneum or pneumoperitoneum. Minor findings as above. 15:44 Patient reports moderate analgesia and pain still present. Lungs clear wally aterally. Patient informed of results and advised to follow up with [facility] and to return to ED if symptoms worsen. Incentive Spirometer ordered. Patient agrees with plan of care. Patient searched on [employer]. No narcotics were prescribed to him in the last 2 years. Prescribed Tylenol #3 but advised patient to take it for break through pain if Motrin doesn't provide analgesia. Informed of risk of narcotic dependence. Scribe Attestation: Documented by Chau Garcia acting as a scribe for Kt LÓPEZ. Provider Scribe Attestation: All medical record entries made by the Scribe were at my direction and personally dictated by me. I have reviewed the chart and agree that the record accurately reflects my personal performance of the history, physical exam, medical decision making, and the department course for this patient. I have also personally directed, reviewed, and agree with the discharge instructions and disposition. Disposition - Clinical Impression Clinical Impression: Chest wall contusion, Alcohol intoxication - Patient ED Disposition Is Patient to be Admitted: No - Disposition Referrals: [facility] [Outside] Disposition: Routine/Home Disposition Time: 15:45 Condition: IMPROVED Additional Instructions: FOLLOW UP WITH [facility] FOR FURTHER EVALUATION RETURN TO ED IMMEDIATELY IF SYMPTOMS WORSEN WILL Cody LOZANO JR, thank you for letting us take care of you today. Your provider was Mo John MD and you were treated for FALL: LT SIDE PAIN. The emergency medical care you received today was directed at your acute symptoms. If you were prescribed any medication, please fill it and take as directed. It may take several days for your symptoms to resolve. Return to the Emergency Department if your symptoms worsen, do not improve, or if you have any other problems. Please contact your doctor or call one of the physicians/clinics you have been referred to that are listed on the Patient Visit Information form that is included in your discharge packet. Bring any paperwork you were given at discharge with you along with any medications you are taking to your follow up visit. Our treatment cannot replace ongoing medical care by a primary care provider outside of the emergency department. Thank you for allowing the [facility] team to be part of your care today. If you had an X-Ray or CT scan: A Radiologist will review the ED reading if any change in treatment is needed we will contact you. If you had a blood, urine, or wound culture: It will take several days for the results, if any change in treatment is needed we will contact you. If you had an STI test: It will take 48 hours for the results. Please call after 1 week if you have not heard back. Prescriptions: Acetaminophen with Codeine [Tylenol with Codeine #3 Tablet] 1 - 2 each PO Q6 #12 tablet RX: Ibuprofen [Motrin Tab] 600 mg PO Q6 PRN #10 tab PRN Reason: Pain Instructions: Alcohol Use - When Is Drinking a Problem?, Bruised Rib (DC) Forms: [employer] (Bahraini) Print Language: SLOVENIAN
--- NOTE | 2018-04-23 12:51 | RAD ---
Date of service: 04/23/2018 HISTORY: trauma COMPARISON: No prior. FINDINGS: LUNGS: No active pulmonary disease. PLEURA: No significant pleural effusion identified, no pneumothorax apparent. CARDIOVASCULAR: No aortic atherosclerotic calcification present. Normal cardiac size. No pulmonary vascular congestion. OSSEOUS STRUCTURES: No significant abnormalities. VISUALIZED UPPER ABDOMEN: Normal. OTHER FINDINGS: None. IMPRESSION: No active disease.
[2018-04-23 13:17] LABS: BASO # 0.1 K/uL (0.0-0.2); EOS # 0.1 K/uL (0.0-0.7); EOS % 1.4 % (0.0-4.0); HEMOGLOBIN 13.5 g/dL (12.0-18.0); LYMPH # 1.3 K/uL (1.0-4.3); LYMPH % 20.3 % (20.0-40.0); MEAN CELL VOLUME 94.1 fl (80.0-94.0); MEAN CORPUSCULAR HEMOGLOBIN 32.1 pg (27.0-31.0); MEAN CORPUSCULAR HGB CONC 34.1 g/dL (33.0-37.0); MEAN PLATELET VOLUME 7.3 fl (7.2-11.7); MONO # 0.7 K/uL (0.0-0.8); MONO % 10.6 % (0.0-10.0); NEUT # 4.4 K/uL (1.8-7.0); NEUT % 66.7 % (50.0-75.0); RBC 4.21 Mil/uL (4.40-5.90); RED CELL DISTRIBUTION WIDTH 14.3 % (11.5-14.5); WHITE BLOOD COUNT 6.6 K/uL (4.8-10.8)
[2018-04-23 13:36] LABS: INR 0.9
[2018-04-23 13:53] LABS: ALB/GLOB RATIO 1.4 (1.0-2.1); ALBUMIN 4.3 g/dL (3.5-5.0); ALT/SGPT 18 U/L (21-72); AST/SGOT 43 U/L (17-59); BLOOD UREA NITROGEN 7 mg/dl (9-20); CALCIUM 9.2 mg/dL (8.4-10.2); GFR NON-AFRICAN AMERICAN > 60
[2018-04-23] MEDS ORDERED: Iohexol 300 100 ML IJ ONE (14:16)
[2018-04-23] MEDS ORDERED: Sodium Chloride 0.9% 50 ML IV ONE (14:18)
--- NOTE | 2018-04-23 15:00 | CT ---
Date of service: 04/23/2018 PROCEDURE: CT HEAD WITHOUT CONTRAST. HISTORY: trauma COMPARISON: 12/09/2011 TECHNIQUE: Axial computed tomography images were obtained through the head/brain without intravenous contrast. Radiation dose: Total exam DLP = 818.62 mGy-cm. This CT exam was performed using one or more of the following dose reduction techniques: Automated exposure control, adjustment of the mA and/or kV according to patient size, and/or use of iterative reconstruction technique. FINDINGS: HEMORRHAGE: No intracranial hemorrhage. BRAIN: No mass effect or edema. No significant atrophy. Moderate periventricular white matter lucency consistent with chronic microvascular ischemic change. Old bilateral thalamic lacunar infarcts. These were not evident in 2011. VENTRICLES: Unremarkable. No hydrocephalus. CALVARIUM: Unremarkable. PARANASAL SINUSES: Complete opacification of the left maxillary sinus likely reflecting chronic sinusitis. This is unchanged from 25/02. MASTOID AIR CELLS: Unremarkable as visualized. No inflammatory changes. OTHER FINDINGS: None. IMPRESSION: No intracranial mass, hemorrhage or evidence of acute infarct. Chronic white matter ischemic change. Bilateral old thalamic lacunar infarcts.
--- NOTE | 2018-04-23 15:07 | CT ---
Date of service: 04/23/2018 PROCEDURE: CT Chest without contrast HISTORY: trauma COMPARISON: None available. TECHNIQUE: Contiguous axial images were obtained through the chest without intravenous contrast enhancement. Sagittal and coronal reconstructions were performed. Radiation dose (DLP): 197.93 mGy-cm. This CT exam was performed using one or more of the following dose reduction techniques: Automated exposure control, adjustment of the mA and/or kV according to patient size, and/or use of iterative reconstruction technique. FINDINGS: LUNGS: No infiltrate. No evidence of pulmonary contusion. Mild centrilobular pulmonary emphysema. MEDIASTINUM: Unremarkable thoracic aorta. No aneurysm. Normal sized heart. Main pulmonary artery unremarkable. No vascular congestion. No lymphadenopathy. There is atherosclerotic calcification of the thoracic aorta PLEURA: No pleural fluid. No pneumothorax. BONES: No fracture. No destructive lesion. UPPER ABDOMEN: Rounded low-density left renal mass, 2.8 cm, measures 7 Hounsfield units. Consistent with cyst. OTHER FINDINGS: None. IMPRESSION: No evidence of thoracic visceral injury. No pneumothorax/hemothorax. Mild centrilobular pulmonary emphysema.
[2018-04-23 15:23] LABS: PROTHROMBIN TIME 9.8 Seconds (9.8-13.1)
--- NOTE | 2018-04-23 15:27 | CT ---
Date of service: 04/23/2018 PROCEDURE: CT Abdomen and Pelvis with contrast HISTORY: trauma COMPARISON: 05/19/2017 TECHNIQUE: Contrast dose: 95 cc Omnipaque 300 Radiation dose: Total exam DLP = 319.28 mGy-cm. This CT exam was performed using one or more of the following dose reduction techniques: Automated exposure control, adjustment of the mA and/or kV according to patient size, and/or use of iterative reconstruction technique. FINDINGS: LOWER THORAX: Unremarkable. LIVER: Normal size, contour and attenuation. No laceration. No biliary dilatation. Two small low-attenuation masses, 8 mm and 5 mm, unchanged. GALLBLADDER AND BILE DUCTS: Unremarkable. PANCREAS: Unremarkable. No gross lesion or ductal dilatation. SPLEEN: Unremarkable. ADRENALS: Unremarkable. No mass. KIDNEYS AND URETERS: Unremarkable. No hydronephrosis. No solid mass. VASCULATURE: Unremarkable. No aortic aneurysm. There is atherosclerotic calcification of the abdominal aorta and iliac vessels. BOWEL: Unremarkable. No obstruction. No gross mural thickening. APPENDIX: Not identified. No secondary findings to suggest acute appendicitis. PERITONEUM: Unremarkable. No free fluid. No free air. LYMPH NODES: Unremarkable. No enlarged lymph nodes. BLADDER: Unremarkable. REPRODUCTIVE: Normal prostate BONES: No acute fracture. OTHER FINDINGS: None. IMPRESSION: No evidence of intra-abdominal visceral injury. No evidence of hemoperitoneum or pneumoperitoneum. Minor findings as above.
[2018-04-23 16:50] VITALS: BP 113/75; PULSE 70; RESP 16; TEMP 98
[2018-04-23 23:25] VITALS: O2SAT 93
--- NOTE | 2018-04-24 13:28 | CARD ---
APPROVED REPORT Date of service: 04/23/2018 EKG Measurement Heart [id number] <Conclusion> Normal sinus rhythm Baseline artifact precludes assessment Nonspecific ST-T changes Abnormal ECG
== END 2018-04-23 16:51 | disposition home or self-care (01) ==
LOC: H.ER 11:22
DX: S20.219A Contusion of unspecified front wall of thorax, initial encounter (principal); F10.129 Alcohol abuse with intoxication, unspecified; Y90.3 Blood alcohol level of 60-79 mg/100 ml; J44.9 Chronic obstructive pulmonary disease, unspecified; J43.9 Emphysema, unspecified; Z79.82 Long term (current) use of aspirin
CPT/HCPCS: 70450; 71045; 71250; 74177; 80053; 80320; 82550; 84484; 85025; 85610; 85730; 86850; 86900; 93005; 94640; 96374; 96375; 99284; J1885; J2270; J2405; Q9967

== ENCOUNTER 2018-04-25 14:16 | Emergency (ER) | payer MEDICAID ==
[2018-04-25 14:16] VITALS: BMI 20.9
[2018-04-25] MEDS ORDERED: Albuterol-Ipratrop 3 mg / 0.5 (3 ml) UD INH STA ×2 (14:52→17:00)
[2018-04-25] MEDS ORDERED: Lidocaine 5% Patch TD STA (14:54)
[2018-04-25] MEDS ORDERED: Morphine 4 MG/ML VIAL ONE (14:59)
[2018-04-25] MEDS ORDERED: Lidocaine 5% Patch TD ONE (15:00)
[2018-04-25] MEDS ORDERED: Albuterol-Ipratrop 3 mg / 0.5 (3 ml) UD ONE ×2 (15:03→17:03)
--- NOTE | 2018-04-25 15:32 | ED PDOC ---
HPI: Chest Pain Time Seen by Provider: 04/25/18 14:29 Chief Complaint (Nursing): Rib Injury Chief Complaint (Provider): Rib Injury History Per: Patient History/Exam Limitations: no limitations Onset/Duration Of Symptoms: Days (x2) Current Symptoms Are (Timing): Still Present Context: Recent Trauma Quality: "Pain" Additional Complaint(s): 62 year old male with a history of COPD, emphysema, pneumonia, and asthma presen ts to the ED with left sided chest pain onset this morning. Patient states he woke up this morning with minimal pain to the left side of chest. When he got up from lying position, he felt the pop. Pain became progressively worse in the same place. Patient took Motrin, Tylenol number 3 and Naproxen. Patient was evaluated by this provider x2 days ago for left chest wall injury s/p fall. He states current pain is in the same location as previous evaluation. At that time, patient had CT scan of head, abdomen, pelvis and chest wall. All of which were negative. Patient further reports that up until this morning, Motrin and Tylenol number 3 provided good analgesia. He denies new trauma, hemoptysis, abdominal pain or headache. PMD: Dr. Aisha Galindo Past Medical History Reviewed: Historical Data Vital Signs: Last Vital Signs Temp 97.5 F L 04/25/18 14:31 Pulse 97 H 04/25/18 14:31 Resp 22 04/25/18 14:31 BP 136/92 H 04/25/18 14:31 Pulse Ox 90 L 04/25/18 14:31 - Medical History PMH: Asthma, COPD, Emphysema, Pneumonia Denies: HIV, Chronic Kidney Disease - Family History Family History: States: Unknown Family Hx - Immunization History Hx Tetanus Toxoid Vaccination: No Hx Influenza Vaccination: Yes Hx Pneumococcal Vaccination: Yes - Home Medications Home Medications: Ambulatory Orders Medication Instructions Recorded Albuterol 0.083% [Albuterol 0.083% 3 ml IH Q4H PRN 30 Days neb 11/05/17 Inhal Fernanda (2.5 mg/3 ml) UD] Tiotropium [Spiriva] 18 mcg IH DAILY #1 cap 11/05/17 Albuterol HFA [Ventolin HFA 90 1 - 2 puff IH Q4H PRN #1 bottle 01/12/18 mcg/actuation (8 g)] Fluticasone/Salmeterol [Airduo 2 puff IH Q12 #1 aer.pow.ba 01/12/18 Respiclick 113-14 Mcg] Aspirin [Ecotrin] 81 mg PO DAILY 02/22/18 Atorvastatin [Lipitor] 40 mg PO DAILY 02/22/18 Azithromycin [Zithromax] 500 mg PO DAILY #5 tab 02/24/18 Benzonatate [Tessalon Perles] 200 mg PO TID 7 Days sgl 02/24/18 Fluticasone/Salmeterol [Airduo 2 puff IH Q12 02/24/18 Respiclick 113-14 Mcg] Folic Acid 1 mg PO DAILY tab 02/24/18 Methylprednisolone [Medrol Dose 4 mg PO ASDIR #21 mg 02/24/18 Pack (21 tabs)] Montelukast Sodium [Singulair] 10 mg PO HS #30 tab 02/24/18 Thiamine [Vitamin B1 Tab] 100 mg PO DAILY tab 02/24/18 Omeprazole 20 mg PO DAILY #30 capsule. 03/27/18 predniSONE [predniSONE Tab] 60 mg PO DAILY #9 tab 03/27/18 Albuterol 0.083% [Albuterol 3 ml IH Q4 PRN #50 neb 04/18/18 Sulfate 3 Ml] Albuterol HFA [Ventolin HFA 90 2 puff IH Q4H PRN #1 inh 04/18/18 mcg/actuation (8 g)] Prednisone 50 mg PO DAILY #4 tablet 04/18/18 Acetaminophen with Codeine 1 - 2 each PO Q6 #12 tablet 04/23/18 [Tylenol with Codeine #3 Tablet] Ibuprofen [Motrin Tab] 600 mg PO Q6 PRN #10 tab 04/23/18 Acetaminophen with Codeine 1 - 2 tab PO Q6 PRN #6 tab 04/25/18 [Tylenol with Codeine No. 3 300 mg-30 mg] Methylprednisolone [Medrol Dose 4 mg PO DAILY #21 mg 04/25/18 Pack (21 tabs)] - Allergies Allergies/Adverse Reactions: Allergies Allergy/AdvReac Type Severity Reaction Status Date / Time No Known Allergies Allergy Verified 04/25/18 14:27 Review of Systems ROS Statement: Except As Marked, All Systems Reviewed And Found Negative Cardiovascular: Positive for: Chest Pain (left) Respiratory: Negative for: Hemoptysis Neurological: Negative for: Headache Physical Exam - Reviewed Nursing Documentation Reviewed: Yes Vital Signs Reviewed: Yes - Physical Exam Appears: Positive for: In Acute Distress (moderate painful) Skin: Positive for: Normal Color, Warm, DRY Eye Exam: Positive for: EOMI, Normal appearance, PERRL Cardiovascular/Chest: Positive for: Regular Rate, Rhythm, Other (no flail chest). Negative for: Murmur Respiratory: Positive for: Decreased Breath Sounds (bilaterally), Wheezing (bilaterally), Other (breath sounds equal bilaterally and patient speaking in full sentences) Gastrointestinal/Abdominal: Positive for: Normal Exam, Soft. Negative for: Tenderness Back: Negative for: L CVA Tenderness, R CVA Tenderness Extremity: Positive for: Normal ROM (upper and lower) Neurologic/Psych: Positive for: Alert, Oriented (x3) - Laboratory Results Result Diagrams: 04/25/18 15:27 04/25/18 15:27 - ECG O2 Sat by Pulse Oximetry: 90 (RA) Pulse Ox Interpretation: Normal Medical Decision Making Medical Decision Making: Time: 1436 Plan: --EKG --Alcohol serum --Drug screen --Troponin --CBC --CXR --Duoneb --Lidocaine --Morphine 4 mg IVP --Toradol 30 mg IVO --Zofran 4 mg IVP Time: 170 CXR: FINDINGS: LUNGS: Bibasilar interstitial changes. PLEURA: No significant pleural effusion identified. No pneumothorax apparent. CARDIOVASCULAR: No aortic atherosclerotic calcification present. Normal cardiac size. No pulmonary vascular congestion. OSSEOUS STRUCTURES: No significant abnormalities. VISUALIZED UPPER ABDOMEN: Normal. OTHER FINDINGS: None. IMPRESSION: No significant change. Time: 1829 --On reevaluation, patient is calm and comfortable, reporting moderate analgesia. Pain is minimal at this time, he has no shortness of breath, lung sounds are clear bilaterally, no flail chest. Repeat pulse ox at room air is 93%, heart rate on desk monitor is 86. He is comfortable going home. Case discussed with Dr. Holman who agrees with plan. Scribe Attestation: Documented by Shandra Garcia, acting as a scribe for Kt Lomeli PA-C Provider Scribe Attestation: All medical record entries made by the Scribe were at my direction and personally dictated by me. I have reviewed the chart and agree that the record accurately reflects my personal performance of the history, physical exam, medical decision making, and the department course for this patient. I have also personally directed, reviewed, and agree with the discharge instructions and disposition. Disposition - Clinical Impression Clinical Impression: Chest wall injury - Patient ED Disposition Is Patient to be Admitted: No - Disposition Referrals: [facility] [Outside] Disposition: Routine/Home Disposition Time: 18:59 Condition: IMPROVED Additional Instructions: FOLLOW UP WITH YOUR DOCTOR FOR FURTHER EVALUATION RETURN TO ED IMMEDIATELY IF SYMPTOMS WORSEN WILL LOZANO JR, thank you for letting us take care of you today. Your provider was Hortencia Holman MD and you were treated for LT SIDE PAIN. The emergency medical care you received today was directed at your acute symptoms. If you were prescribed any medication, please fill it and take as directed. It may take several days for your symptoms to resolve. Return to the Emergency Department if your symptoms worsen, do not improve, or if you have any other pro blems. Please contact your doctor or call one of the physicians/clinics you have been referred to that are listed on the Patient Visit Information form that is included in your discharge packet. Bring any paperwork you were given at discharge with you along with any medications you are taking to your follow up visit. Our treatment cannot replace ongoing medical care by a primary care provider outside of the emergency department. Thank you for allowing the [facility] team to be part of your care today. If you had an X-Ray or CT scan: A Radiologist will review the ED reading if any change in treatment is needed we will contact you. If you had a blood, urine, or wound culture: It will take several days for the results, if any change in treatment is needed we will contact you. If you had an STI test: It will take 48 hours for the results. Please call after 1 week if you have not heard back. Prescriptions: Acetaminophen with Codeine [Tylenol with Codeine No. 3 300 mg-30 mg] 1 - 2 tab PO Q6 PRN #6 tab PRN Reason: Pain Methylprednisolone [Medrol Dose Pack (21 tabs)] 4 mg PO DAILY #21 mg Instructions: Contusion (DC), Bruised Rib (DC) Forms: [employer] (Turkish) Print Language: BURKINAN
[2018-04-25 15:44] LABS: BASO # 0.1 K/uL (0.0-0.2); BASO % 0.9 % (0.0-2.0); EOS # 0.3 K/uL (0.0-0.7); EOS % 3.1 % (0.0-4.0); HEMOGLOBIN 13.5 g/dL (12.0-18.0); LYMPH # 0.6 K/uL (1.0-4.3); LYMPH % 6.5 % (20.0-40.0); MEAN CELL VOLUME 93.7 fl (80.0-94.0); MEAN CORPUSCULAR HEMOGLOBIN 32.1 pg (27.0-31.0); MEAN CORPUSCULAR HGB CONC 34.2 g/dL (33.0-37.0); MEAN PLATELET VOLUME 7.6 fl (7.2-11.7); MONO # 0.7 K/uL (0.0-0.8); MONO % 7.5 % (0.0-10.0); NEUT # 7.8 K/uL (1.8-7.0); PLATELET COUNT 335 K/uL (130-400); RBC 4.19 Mil/uL (4.40-5.90); RED CELL DISTRIBUTION WIDTH 14.3 % (11.5-14.5); WHITE BLOOD COUNT 9.5 K/uL (4.8-10.8)
[2018-04-25 16:23] LABS: ALB/GLOB RATIO 1.3 (1.0-2.1); ALBUMIN 4.3 g/dL (3.5-5.0); ALT/SGPT 22 U/L (21-72); AST/SGOT 26 U/L (17-59); BLOOD UREA NITROGEN 9 mg/dl (9-20); CALCIUM 9.3 mg/dL (8.4-10.2); GFR NON-AFRICAN AMERICAN > 60
--- NOTE | 2018-04-25 17:09 | RAD ---
Date of service: 04/25/2018 HISTORY: chest pain COMPARISON: 04/23/2018 TECHNIQUE: Chest PA and lateral FINDINGS: LUNGS: Bibasilar interstitial changes. PLEURA: No significant pleural effusion identified. No pneumothorax apparent. CARDIOVASCULAR: No aortic atherosclerotic calcification present. Normal cardiac size. No pulmonary vascular congestion. OSSEOUS STRUCTURES: No significant abnormalities. VISUALIZED UPPER ABDOMEN: Normal. OTHER FINDINGS: None. IMPRESSION: No significant change.
[2018-04-25 17:19] LABS: BARBITURATES, UR NEGATIVE (NEGATIVE); BENZODIAZEPINES, UR NEGATIVE (NEGATIVE); OPIATES, UR POSITIVE (NEGATIVE); PHENCYCLIDINE, UR NEGATIVE (NEGATIVE)
[2018-04-25 17:43] LABS: BANDS 12 % (0-2); BASOPHIL 1 % (0-2); EOSINOPHIL 4 % (0-7); LYMPHOCYTE 9 % (20-50); MONOCYTE 7 % (0-10); NEUTROPHIL 66 % (42-75); PLASMACYTES 1 (0-0); PLATELET ESTIMATE NORMAL (NORMAL); TOTAL CELLS COUNTED 100
[2018-04-25 17:45] LABS: ANISOCYTOSIS SLIGHT
[2018-04-25 17:46] LABS: MICROCYTOSIS SLIGHT; PLATELET CLUMPS PRESENT
[2018-04-25 19:26] VITALS: BP 114/62; PULSE 75; RESP 18; TEMP 98.4
[2018-04-25 19:36] VITALS: O2SAT 90
--- NOTE | 2018-04-26 16:14 | CARD ---
APPROVED REPORT Date of service: 04/25/2018 EKG Measurement Heart [id number] <Conclusion> Normal sinus rhythm Normal ECG
== END 2018-04-25 19:13 | disposition home or self-care (01) ==
LOC: H.ER 14:16
DX: S29.9XXA Unspecified injury of thorax, initial encounter (principal); W19.XXXA Unspecified fall, initial encounter; Y92.89 Other specified places as the place of occurrence of the external cause; J44.9 Chronic obstructive pulmonary disease, unspecified
CPT/HCPCS: 71046; 80053; 80320; 80324; 80345; 80346; 80349; 80353; 80358; 80361; 83992; 84484; 85025; 93005; 94640; 96374; 96375; 99285; J1885; J2270; J2405; J2930

== ENCOUNTER 2018-05-30 12:50 | Inpatient (IN) | payer MEDICAID ==
[2018-05-30 12:50] VITALS: BMI 20.9
[2018-05-30] MEDS ORDERED: Sodium Chloride 0.9% 1,000 ML IV STA (13:11)
[2018-05-30] MEDS ORDERED: Albuterol-Ipratrop 3 mg / 0.5 (3 ml) UD IH STA ×2 (13:11→14:24)
--- NOTE | 2018-05-30 13:37 | ED PDOC ---
HPI: SOB/CHF/COPD Time Seen by Provider: 05/30/18 13:06 Chief Complaint (Nursing): Shortness Of Breath Chief Complaint (Provider): N/V/D, SOB, Abd Pain History Per: Patient History/Exam Limitations: no limitations Onset/Duration Of Symptoms: Days (x2) Current Symptoms Are (Timing): Still Present Additional Complaint(s): 62 year old male presents to the ED for evaluation of nausea, non-bloody vomiting, and non-bloody diarrhea associated with shortness of breath and right sided upper abdominal pain for the past two days. Otherwise denies fever and chills. PMD: Chava Renee Past Medical History Reviewed: Historical Data, Nursing Documentation, Vital Signs Vital Signs: Last Vital Signs Temp 99.3 F 05/30/18 12:59 Pulse 135 H 05/30/18 12:59 Resp 24 05/30/18 12:59 BP 101/75 05/30/18 12:59 Pulse Ox 95 05/30/18 12:59 - Medical History PMH: Asthma, COPD, Emphysema, Pneumonia Denies: HIV, Chronic Kidney Disease - Surgical History Surgical History: No Surg Hx - Family History Family History: States: Unknown Family Hx - Immunization History Hx Tetanus Toxoid Vaccination: No Hx Influenza Vaccination: Yes Hx Pneumococcal Vaccination: Yes - Home Medications Home Medications: Ambulatory Orders Medication Instructions Recorded Albuterol 0.083% [Albuterol 0.083% 3 ml IH Q4H PRN 30 Days neb 11/05/17 Inhal Fernanda (2.5 mg/3 ml) UD] Tiotropium [Spiriva] 18 mcg IH DAILY #1 cap 11/05/17 Albuterol HFA [Ventolin HFA 90 1 - 2 puff IH Q4H PRN #1 bottle 01/12/18 mcg/actuation (8 g)] Fluticasone/Salmeterol [Airduo 2 puff IH Q12 #1 aer.pow.ba 01/12/18 Respiclick 113-14 Mcg] Aspirin [Ecotrin] 81 mg PO DAILY 02/22/18 Atorvastatin [Lipitor] 40 mg PO DAILY 02/22/18 Azithromycin [Zithromax] 500 mg PO DAILY #5 tab 02/24/18 Benzonatate [Tessalon Perles] 200 mg PO TID 7 Days sgl 02/24/18 Fluticasone/Salmeterol [Airduo 2 puff IH Q12 02/24/18 Respiclick 113-14 Mcg] Folic Acid 1 mg PO DAILY tab 02/24/18 Methylprednisolone [Medrol Dose 4 mg PO ASDIR #21 mg 02/24/18 Pack (21 tabs)] Montelukast Sodium [Singulair] 10 mg PO HS #30 tab 02/24/18 Thiamine [Vitamin B1 Tab] 100 mg PO DAILY tab 02/24/18 Omeprazole 20 mg PO DAILY #30 capsule. 03/27/18 predniSONE [predniSONE Tab] 60 mg PO DAILY #9 tab 03/27/18 Albuterol 0.083% [Albuterol 3 ml IH Q4 PRN #50 neb 04/18/18 Sulfate 3 Ml] Albuterol HFA [Ventolin HFA 90 2 puff IH Q4H PRN #1 inh 04/18/18 mcg/actuation (8 g)] Prednisone 50 mg PO DAILY #4 tablet 04/18/18 Acetaminophen with Codeine 1 - 2 each PO Q6 #12 tablet 04/23/18 [Tylenol with Codeine #3 Tablet] Ibuprofen [Motrin Tab] 600 mg PO Q6 PRN #10 tab 04/23/18 Acetaminophen with Codeine 1 - 2 tab PO Q6 PRN #6 tab 04/25/18 [Tylenol with Codeine No. 3 300 mg-30 mg] Methylprednisolone [Medrol Dose 4 mg PO DAILY #21 mg 04/25/18 Pack (21 tabs)] - Allergies Allergies/Adverse Reactions: Allergies Allergy/AdvReac Type Severity Reaction Status Date / Time No Known Allergies Allergy Verified 05/30/18 12:59 Review of Systems ROS Statement: Except As Marked, All Systems Reviewed And Found Negative Constitutional: Negative for: Fever, Chills Respiratory: Positive for: Shortness of Breath Gastrointestinal: Positive for: Nausea, Vomiting (non-bloody), Abdominal Pain (right sided upper), Diarrhea (non-bloody) Physical Exam - Reviewed Nursing Documentation Reviewed: Yes Vital Signs Reviewed: Yes - Physical Exam Appears: Positive for: In Acute Distress (mild respiratory distress) Head Exam: Positive for: ATRAUMATIC, NORMOCEPHALIC Skin: Positive for: Normal Color, Warm. Negative for: Rash Eye Exam: Positive for: Normal appearance ENT: Positive for: Other (mucous membranes dry) Neck: Positive for: Normal, Painless ROM, Supple Cardiovascular/Chest: Positive for: Tachycardia (but regular rhythm) Respiratory: Positive for: Rhonchi (scattered), Wheezing (mild expiratory bilaterally), Respiratory Distress (mild) Gastrointestinal/Abdominal: Positive for: Normal Exam, Bowel Sounds (present and active), Soft. Negative for: Tenderness Extremity: Negative for: Tenderness (all extremities), Swelling (all extremities) Neurological/Psych: Positive for: Awake, Alert, Oriented (x3) - Laboratory Results Result Diagrams: 05/30/18 13:40 05/30/18 13:40 - ECG O2 Sat by Pulse Oximetry: 95 (RA) Pulse Ox Interpretation: Normal - Progress Re-evaluation Time: 14:34 Condition: Re-examined - Critical Care Total Time (In Min): 30 Documented Critical Care: Time excludes all time spent performint seperately billable procedures Medical Decision Making Medical Decision Making: Time: 1315 Initial Impression: N/V/D, shortness of breath Initial Plan: --EKG --CMP --CBC with differential --CXR --Duoneb 3ml INH --Normal saline IV --Pepcid 20mg IVP --Zofran 4mg IVP --Blood culture --Peak flow pre/post --Reevaluation Scribe Attestation: Documented by Sunshine Delgado, acting as a scribe for Mo John MD. Provider Scribe Attestation: All medical record entries made by the Scribe were at my direction and personally dictated by me. I have reviewed the chart and agree that the record accurately reflects my personal performance of the history, physical exam, medical decision making, and the department course for this patient. I have also personally directed, reviewed, and agree with the discharge instructions and disposition. Disposition - Clinical Impression Clinical Impression: COPD exacerbation, Gastroenteritis, Pneumonia, Sepsis - Patient ED Disposition Is Patient to be Admitted: Yes - Disposition Disposition Time: 14:35 Condition: FAIR Forms: [employer] (Sudanese) - Pt Status Changed To: Hospital Disposition Of: Inpatient - Admit Certification Admit to Inpatient:: After my assessment, the patient will require hospitalization for at least two midnights. This is because of the severity of symptoms shown, intensity of services needed, and/or the medical risk in this patient being treated as an outpatient. - POA Present On Arrival: None
[2018-05-30 14:02] LABS: BASO # 0.1 K/uL (0.0-0.2); BASO % 0.6 % (0.0-2.0); EOS # 0.1 K/uL (0.0-0.7); EOS % 0.9 % (0.0-4.0); HEMOGLOBIN 14.7 g/dL (12.0-18.0); LYMPH # 0.4 K/uL (1.0-4.3); LYMPH % 2.9 % (20.0-40.0); MEAN CORPUSCULAR HEMOGLOBIN 31.8 pg (27.0-31.0); MEAN CORPUSCULAR HGB CONC 33.2 g/dL (33.0-37.0); MEAN PLATELET VOLUME 7.9 fl (7.2-11.7); MONO # 0.2 K/uL (0.0-0.8); MONO % 1.8 % (0.0-10.0); NEUT # 11.5 K/uL (1.8-7.0); NEUT % 93.8 % (50.0-75.0); PLATELET COUNT 346 K/uL (130-400); RBC 4.63 Mil/uL (4.40-5.90); RED CELL DISTRIBUTION WIDTH 14.3 % (11.5-14.5); WHITE BLOOD COUNT 12.3 K/uL (4.8-10.8)
[2018-05-30 14:06] LABS: MEAN CELL VOLUME 95.8 fl (80.0-94.0)
[2018-05-30 14:07] LABS: ALB/GLOB RATIO 1.3 (1.0-2.1); ALBUMIN 4.3 g/dL (3.5-5.0); ALT/SGPT 32 U/L (21-72); AST/SGOT 58 U/L (17-59); BLOOD UREA NITROGEN 7 mg/dl (9-20); CALCIUM 9.1 mg/dL (8.4-10.2); GFR NON-AFRICAN AMERICAN > 60
--- NOTE | 2018-05-30 14:19 | RAD ---
Date of service: 05/30/2018 HISTORY: cough COMPARISON: Comparison chest 04/25/2018 comparison also made with chest CT scan 04/23/2017. TECHNIQUE: 1 view obtained. FINDINGS: LUNGS: Chronic changes of emphysema again noted. There are coarsened interstitial markings most pronounced in the left mid to lower lung field. Rule out viral illness-interstitial pneumonia PLEURA: No significant pleural effusion identified, no pneumothorax apparent. CARDIOVASCULAR: No aortic atherosclerotic calcification present. Normal cardiac size. No pulmonary vascular congestion. OSSEOUS STRUCTURES: No significant abnormalities. VISUALIZED UPPER ABDOMEN: Normal. OTHER FINDINGS: None. IMPRESSION: Chronic changes of emphysema again noted. There are coarsened interstitial markings most pronounced in the left mid to lower lung field. Rule out viral illness-interstitial pneumonia
[2018-05-30] MEDS ORDERED: Piperacillin/Tazobact 3.375 GM in Sodium Chloride 0.9% 100 ML IVPB STA (14:24)
[2018-05-30] MEDS ORDERED: Vancomycin 1 g Inj ONE (14:49)
[2018-05-30] MEDS ORDERED: Albuterol-Ipratrop 3 mg / 0.5 (3 ml) UD ONE ×2 (14:49→16:09)
[2018-05-30] MEDS ORDERED: Iohexol 300 100 ML IJ ONE (14:51)
[2018-05-30] MEDS ORDERED: Sodium Chloride 0.9% 50 ML IV ONE (14:52)
[2018-05-30 14:57] LABS: BANDS 2 % (0-2); EOSINOPHIL 1 % (0-7); LYMPHOCYTE 3 % (20-50); MONOCYTE 2 % (0-10); NEUTROPHIL 92 % (42-75); TOTAL CELLS COUNTED 100
[2018-05-30 14:58] LABS: ANISOCYTOSIS SLIGHT; LARGE PLATELETS PRESENT; PLATELET ESTIMATE NORMAL (NORMAL)
--- NOTE | 2018-05-30 14:58 | CP.PCM.HP ---
<Ld Gtz - Last Filed: 05/30/18 15:53> History of Present Illness - History of Present Illness History of Present Illness: 62 yo male with PMH of COPD present to ED due to Nausea, NBNB vomiting, diarrhea, cough and SOB that have been present for past 2 days. Patient also report having RIGHT flank pain that started at same time, but denies any dysuria o polyuria. Patient report he have been having 2-3 vomit a day, and had to stop eating due to everything that he eat, will eventually vomit it. He also report he have had 4-5 BM daily, last one was before coming to ED. Otherwise patient denies headache, chest pain, abdominal pain, constipation. All ROS negative except mentioned in HPI PCP: Chava Garcia Allergy none Medication: Spiriva 1 PMH: COPD PSH none Social: used to smoke 2-3 pack a day but now he smoke 2-3 cig a day, drink 2 can of beer daily, denies drug use. In ED Initial Impression: N/V/D, shortness of breath Vitals: 99.3 temp, 135 pulse, 101/75 bp, resp 24, 95 ox saturation CBC: WBC 12.3 BMP: WNL Chest X-ray: Chronic changes of emphysema noted, There are coarsened interstitial markings most pronounced in the LEFT mid to lower lung fierld, R/o viral illness-interstitial pneumonia Blood culture Pending Patient received: Duoneb 3ml INH solumedrol Normal saline IV Pepcid 20mg IVP Zofran 4mg IVP IV Vanco IV pip/tazo Patient will be admitted to Telemetry to manage COPD exacerbation + Pneumonia Present on Admission - Present on Admission Any Indicators Present on Admission: No Review of Systems - Review of Systems All systems: reviewed and no additional remarkable complaints except Past Patient History - Infectious Disease Hx of Infectious Diseases: None - Tetanus Immunizations Tetanus Immunization: Unknown - Past Medical History & Family History Past Medical History?: Yes - Past Social History Smoking Status: Light Smoker < 10 Cigarettes Daily - CARDIAC Hx Cardiac Disorders: No - PULMONARY Hx Asthma: Yes Hx Chronic Obstructive Pulmonary Disease (COPD): Yes Hx Emphysema: Yes Hx Pneumonia: Yes - NEUROLOGICAL Hx Neurological Disorder: No - HEENT Hx HEENT Problems: Yes - RENAL Hx Chronic Kidney Disease: No - ENDOCRINE/METABOLIC Hx Endocrine Disorders: No - HEMATOLOGICAL/ONCOLOGICAL Hx Human Immunodeficiency Virus (HIV): No - INTEGUMENTARY Hx Dermatological Problems: No - MUSCULOSKELETAL/RHEUMATOLOGICAL Hx Musculoskeletal Disorders: Yes Hx Falls: Yes - GASTROINTESTINAL Hx Gastrointestinal Disorders: No - PSYCHIATRIC Hx Psychophysiologic Disorder: No Hx Substance Use: Yes (use Marijuana occasionally) - SURGICAL HISTORY Hx Surgeries: Yes (neck cyst right side) Other/Comment: right neck cyst removal 5 years ago - ANESTHESIA Hx Anesthesia: Yes Hx Anesthesia Reactions: No Hx Malignant Hyperthermia: No Meds Allergies/Adverse Reactions: Allergies Allergy/AdvReac Type Severity Reaction Status Date / Time No Known Allergies Allergy Verified 05/30/18 12:59 Physical Exam - Constitutional Appears: Well, Non-toxic, No Acute Distress - Head Exam Head Exam: ATRAUMATIC, NORMAL INSPECTION, NORMOCEPHALIC - Eye Exam Eye Exam: EOMI, Normal appearance, PERRL Pupil Exam: NORMAL ACCOMODATION, PERRL - ENT Exam ENT Exam: Mucous Membranes Moist, Normal Exam - Neck Exam Neck exam: Positive for: Normal Inspection - Respiratory Exam Respiratory Exam: Rales, NORMAL BREATHING PATTERN - Cardiovascular Exam Cardiovascular Exam: REGULAR RHYTHM, +S1, +S2 - GI/Abdominal Exam GI & Abdominal Exam: Normal Bowel Sounds, Soft. absent: Tenderness - Extremities Exam Extremities exam: Positive for: full ROM, normal inspection. Negative for: joint swelling, pedal edema - Back Exam Back exam: CVA tenderness (R) - Neurological Exam Neurological exam: Alert, CN II-XII Intact, Normal Gait, Oriented x3, Reflexes Normal - Psychiatric Exam Psychiatric exam: Normal Affect, Normal Mood - Skin Skin Exam: Dry, Intact, Normal Color, Warm Results - Vital Signs Recent Vital Signs: Last Vital Signs Temp 102.3 F H 05/30/18 14:23 Pulse 111 H 05/30/18 14:23 Resp 20 05/30/18 14:23 BP 102/69 05/30/18 14:23 Pulse Ox 95 05/30/18 14:35 - Labs Result Diagrams: 05/30/18 13:40 05/30/18 13:40 Labs: Laboratory Results - last 24 hr 05/30/18 05/30/18 13:40 13:40 WBC 12.3 H RBC 4.63 Hgb 14.7 Hct 44.3 MCV 95.8 H D MCH 31.8 H MCHC 33.2 RDW 14.3 Plt Count 346 MPV 7.9 Neut % (Auto) 93.8 H Lymph % (Auto) 2.9 L [place] % (Auto) 1.8 Eos % (Auto) 0.9 Baso % (Auto) 0.6 Neut # (Auto) 11.5 H Lymph # (Auto) 0.4 L [place] # (Auto) 0.2 Eos # (Auto) 0.1 Baso # (Auto) 0.1 Sodium 135 Potassium 4.0 Chloride 100 Carbon Dioxide 20 L Anion Gap 19 BUN 7 L Creatinine 0.6 L Est GFR ( Amer) > 60 Est GFR (Non-Af Amer) > 60 Random Glucose 75 Calcium 9.1 Total Bilirubin 0.5 AST 58 ALT 32 Alkaline Phosphatase 82 Total Protein 7.5 Albumin 4.3 Globulin 3.2 Albumin/Globulin Ratio 1.3 Assessment & Plan - Assessment and Plan (Free Text) Assessment: 62 yo male with PMH of COPD presented to ED due to Cough, SOb, N/V and diarrhea, will be admitted to Telemetry to manage COPD exacerbation + Pneumonia. Chest X-ray: Chronic changes of emphysema noted, There are coarsened inter stitial markings most pronounced in the LEFT mid to lower lung fierld, R/o viral illness-interstitial pneumonia Blood culture Pending Plan COPD exacerbation + pneumonia Fever 102.3 temp, HR 111, Bp 102/69 S/P vanco and Pip/tazo Will start on Vancomycin Will start on Pip/tazo Duoneb 3ml INH albuterol prn Morphine and acetomenophen for pain Zofran for nausea/vomiting Patient report had not had BM since came to ER, follow up diarrhea. F/U ABG F/U BMp F/U CBC F/U sputum culture F/u blood culture DVT prophylaxis Lovenox 40sc SCD <Donovan Martinez D - Last Filed: 05/30/18 15:57> Results - Vital Signs Recent Vital Signs: Last Vital Signs Temp 102.3 F H 05/30/18 15:06 Pulse 111 H 05/30/18 14:23 Resp 20 05/30/18 14:23 BP 102/69 05/30/18 14:23 Pulse Ox 95 05/30/18 14:35 - Labs Result Diagrams: 05/30/18 13:40 05/30/18 13:40 Labs: Laboratory Results - last 24 hr 05/30/18 05/30/18 05/30/18 13:40 13:40 15:34 WBC 12.3 H RBC 4.63 Hgb 14.7 Hct 44.3 MCV 95.8 H D MCH 31.8 H MCHC 33.2 RDW 14.3 Plt Count 346 MPV 7.9 Neut % (Auto) 93.8 H Lymph % (Auto) 2.9 L [place] % (Auto) 1.8 Eos % (Auto) 0.9 Baso % (Auto) 0.6 Neut # (Auto) 11.5 H Lymph # (Auto) 0.4 L [place] # (Auto) 0.2 Eos # (Auto) 0.1 Baso # (Auto) 0.1 Neutrophils % (Manual) 92 H Band Neutrophils % 2 Lymphocytes % (Manual) 3 L Monocytes % (Manual) 2 Eosinophils % (Manual) 1 Platelet Estimate Normal Large Platelets Present Anisocytosis (manual) Slight pO2 46 VBG pH 7.37 VBG pCO2 35 L VBG HCO3 21.0 VBG Total CO2 21.3 L VBG O2 Sat (Calc) 83.4 H VBG Base Excess -4.4 L VBG Potassium 3.7 Glucose 62 L Lactate 2.6 H FiO2 21.0 Blood Gas Comments Lac=2.6 Crit Value Called To dion Plunkett Crit Value Called By 22 Crit Value Read Back Y Blood Gas Notified Time 1540 Sodium 135 133.0 Potassium 4.0 Chloride 100 102.0 Carbon Dioxide 20 L Anion Gap 19 BUN 7 L Creatinine 0.6 L Est GFR ( Amer) > 60 Est GFR (Non-Af Amer) > 60 Random Glucose 75 Calcium 9.1 Total Bilirubin 0.5 AST 58 ALT 32 Alkaline Phosphatase 82 Total Protein 7.5 Albumin 4.3 Globulin 3.2 Albumin/Globulin Ratio 1.3 Venous Blood Potassium 3.7 Attending/Attestation - Attestation I have personally seen and examined this patient.: Yes I have fully participated in the care of the patient.: Yes I have reviewed all pertinent clinical information: Yes Notes (Text): 05/30/18 15:57 Patient seen and examined with resident. Case discussed and agreed with assessment and plan of management.
[2018-05-30] MEDS ORDERED: Sodium Chloride 3% for Inhalation 4 ML VIAL.NEB IH PRN (15:11)
[2018-05-30] MEDS ORDERED: Albuterol 0.083% Inhal Sol (2.5 mg/3 mL) UD IH PRN (15:21)
[2018-05-30 15:41] LABS: VENOUS BLOOD GAS BASE EXCESS -4.4 mmol/L (0.0-2.0); VENOUS BLOOD GAS PCO2 35 mmHg (40-60); VENOUS BLOOD GAS PO2 46 mm/Hg (30-55); VENOUS BLOOD PH 7.37 (7.32-7.43)
[2018-05-30] MEDS ORDERED: Piperacillin/Tazobact 3.375 GM in Sodium Chloride 0.9% 100 ML IVPB SCH (16:00)
[2018-05-30] MEDS: Albuterol-Ipratrop 3 mg / 0.5 (3 ml) UD INH SCH ×2 (16:10→20:28)
[2018-05-30] MEDS: Tiotropium 18 mcg Cap For Inhalation IH SCH (16:17)
--- NOTE | 2018-05-30 16:42 | CT ---
Date of service: 05/30/2018 PROCEDURE: CT abdomen pelvis HISTORY: Abdominal pain COMPARISON: Made with prior CT scan 04/23/2018. TECHNIQUE: Contiguous axial images of the abdomen and pelvis performed following intravenous injection of approximately 95 cc Omnipaque 300 contrast material. Additional 2D sagittal and coronal reformats generated. Radiation dose: Total exam DLP = 203.85 mGy-cm. This CT exam was performed using one or more of the following dose reduction techniques: Automated exposure control, adjustment of the mA and/or kV according to patient size, and/or use of iterative reconstruction technique. FINDINGS: LOWER THORAX: Patchy infiltrate left posterior lower lung field. Minor atelectasis right lung base within the scattered areas of parenchymal scarring and areas of and mild pleural thickening small approximately 4 mm elliptical shaped nodule left lateral lung base. There is an additional small pleural based nodular density left lingular region measuring 6 mm. Follow-up CT scan at 6 month interval could be performed to assess stability LIVER: Liver exhibits normal size measuring nearly 18 cm in CC dimension... Moderate diffuse fatty hepatic infiltration.. There is a small approximately 6.5 mm elliptical shaped low-attenuation focus inferior aspect left lobe liver which exhibits Hounsfield units in the mid teens which could represent a small cyst or possibly hemangioma.. There is a 2nd small low-attenuation focus anterior aspect left lobe liver as well measuring about 5 mm. Follow-up at interval could be performed to assess stability. GALLBLADDER AND BILE DUCTS: Gallbladder physiologically distended. No evidence of intraluminal gallbladder calculi. PANCREAS: Unremarkable. No mass. No ductal dilatation. SPLEEN: Unremarkable. No splenomegaly. ADRENALS: No adrenal lesions. KIDNEYS AND URETERS: Kidneys demonstrate symmetric nephrograms. No evidence of nephrolithiasis. Redemonstrated is a 3.1 x 2.2 cm elliptical shaped cyst arising from the posterior inferior aspect left kidney BLADDER: Urinary bladder is incompletely distended which in part accounts for thick-walled appearance. Muscular hypertrophy presumably contributes. Cystitis or other intrinsic/invasive wall lesion not excluded. Correlation with urinalysis recommended. REPRODUCTIVE: Prostate gland measures approximately 3.4 cm in transverse dimension. APPENDIX: Appendix is not positively identified however no inflammatory changes right lower quadrant of the abdomen BOWEL: Evaluation of the bowel is limited due to the lack of oral contrast material. The stomach is incompletely distended with thick-walled appearance. Minimal distention of few loops of proximal small bowel left upper abdomen with slight thick-walled appearance. Findings could represent enteritis. Most the remaining small bowel is collapsed. No definitive evidence of mural wall thickening of the colon. PERITONEUM: Unremarkable. No fluid collection. No free air. LYMPH NODES: Unremarkable. No enlarged lymph nodes. VASCULATURE: Unremarkable. No aortic aneurysm. Mild-moderate aortic atherosclerotic calcification or mural plaque present. BONES: Mild multilevel degenerative spondylosis of the lower thoracic and lumbar spine. OTHER FINDINGS: None. IMPRESSION: Fatty hepatic infiltration. Two small low-attenuation foci left lobes of the liver unchanged. The Left renal cyst unchanged. Minimal distention several loops of proximal small bowel left upper and mid abdomen with minimal wall thickening. Rule out mild enteritis. Wall thickening of the urinary bladder in part due to incomplete distention and muscular hypertrophy however correlation with urinalysis to exclude cystitis or other intrinsic/invasive wall lesion inferior Small nodular densities left lingular region and left lung base. Follow-up CT scan chest in 6 months could be performed to assess stability.
[2018-05-30] MEDS ORDERED: methylPREDNISolone 40 MG in Sodium Chloride 0.9% 50 ML IVPB SCH (17:00)
[2018-05-30] MEDS: Lactobacillus Acidophilus 500 MU Cap PO SCH (17:39)
[2018-05-31] MEDS: Piperacillin/Tazobact 3.375 GM in Sodium Chloride 0.9% 100 ML IVPB SCH ×4 (02:19→21:43)
[2018-05-31] MEDS ORDERED: Influenza Vaccine 60 mcg/0.5 mL SYR (4YR UP) IM ONE (05:30)
[2018-05-31 05:47] LABS: BASO # 0.1 K/uL (0.0-0.2); BASO % 0.3 % (0.0-2.0); LYMPH # 0.6 K/uL (1.0-4.3); LYMPH % 2.7 % (20.0-40.0); MEAN CELL VOLUME 94.2 fl (80.0-94.0); MEAN CORPUSCULAR HEMOGLOBIN 31.5 pg (27.0-31.0); MEAN CORPUSCULAR HGB CONC 33.5 g/dL (33.0-37.0); MEAN PLATELET VOLUME 7.8 fl (7.2-11.7); MONO # 1.3 K/uL (0.0-0.8); MONO % 5.9 % (0.0-10.0); NEUT # 20.9 K/uL (1.8-7.0); NEUT % 91.1 % (50.0-75.0); PLATELET COUNT 302 K/uL (130-400); RBC 3.97 Mil/uL (4.40-5.90); RED CELL DISTRIBUTION WIDTH 13.9 % (11.5-14.5)
[2018-05-31 06:12] LABS: BLOOD UREA NITROGEN 12 mg/dl (9-20); CALCIUM 8.9 mg/dL (8.4-10.2); GFR NON-AFRICAN AMERICAN > 60
[2018-05-31 06:29] LABS: HEMOGLOBIN 12.5 g/dL (12.0-18.0)
--- NOTE | 2018-05-31 07:03 | CP.PCM.PN ---
<Ld Gtz - Last Filed: 05/31/18 12:10> Subjective - Date & Time of Evaluation Date of Evaluation: 05/31/18 Time of Evaluation: 07:00 - Subjective Subjective: Patient seen and examined at bedside. No acute event overnight. Last fever 15:00 05/31 Patient is tolerating liquid diet, he denies nausea, vomiting, or diarrhea. He have been breathing will with nasal canula. Patient report still have RIGHT flank pain but otherwise have no complains. Patient denies chest pain, sob, abdominal pain, diarrhea constipation dysuria or polyuria. Objective - Vital Signs/Intake and Output Vital Signs (last 24 hours): Temp Pulse Resp BP Pulse Ox 98.1 F 88 17 110/71 92 L 05/31/18 05:00 05/31/18 05:00 05/31/18 05:00 05/31/18 05:00 05/31/18 05:00 - Medications Medications: Current Medications Acetaminophen (Tylenol 325mg Tab) 650 mg PO Q6 PRN PRN Reason: Fever >100.4 F Albuterol Sulfate (Albuterol 0.083% Inhal Fernanda (2.5 Mg/3 Ml) Ud) 2.5 mg INH RQ4 PRN PRN Reason: Shortness of Breath Albuterol Sulfate (Albuterol 0.083% Inhal Fernanda (2.5 Mg/3 Ml) Ud) 2.5 mg IH Q4 PRN PRN Reason: asthma Albuterol/Ipratropium (Duoneb 3 Mg/0.5 Mg (3 Ml) Ud) 3 ml INH RQID KARTHIKEYAN Last Admin: 05/30/18 16:10 Dose: 3 ml Aspirin (Ecotrin) 81 mg PO DAILY [facility] Enoxaparin Sodium (Lovenox) 40 mg SC DAILY [facility]; Protocol Folic Acid (Folic Acid) 1 mg PO DAILY [facility] Home Med (Fluticasone/Salmeterol [Airduo Respiclick 113-14 Mcg]) 2 puff IH Q12 KARTHIKEYAN Vancomycin HCl 1 gm/ Sodium (Chloride) 250 mls @ 166.667 mls/hr IVPB Q12 KARTHIKEYAN; Protocol Last Admin: 05/31/18 02:00 Dose: Not Given Piperacillin Sod/Tazobactam (Sod 3.375 gm/ Sodium Chloride) 100 mls @ 100 mls/hr IVPB 0300,0900,1500,2100 [facility]; Protocol Last Admin: 05/31/18 02:19 Dose: 100 mls/hr Lactobacillus Acidophilus (Bacid Acidophilus) 1 cap PO BID [facility] Last Admin: 05/30/18 17:39 Dose: 1 cap Methylprednisolone (Solu-Medrol) 40 mg IVP Q8 [facility] Montelukast Sodium (Singulair) 10 mg PO HS [facility] Last Admin: 05/31/18 02:16 Dose: 10 mg Morphine Sulfate (Morphine) 2 mg IVP Q6 PRN PRN Reason: Pain, moderate (4-7) Last Admin: 05/30/18 16:33 Dose: 2 mg Ondansetron HCl (Zofran Inj) 4 mg IVP Q6 PRN PRN Reason: Nausea/Vomiting Pantoprazole Sodium (Protonix Inj) 40 mg IVP DAILY [facility] Last Admin: 05/30/18 16:12 Dose: 40 mg Thiamine HCl (Vitamin B1 Tab) 100 mg PO DAILY [facility] Tiotropium [place] (Spiriva) 18 mcg IH DAILY [facility] Last Admin: 05/30/18 16:17 Dose: 18 mcg - Labs Labs: 05/31/18 05:30 05/31/18 05:30 - Constitutional Appears: Well, Non-toxic, No Acute Distress - Head Exam Head Exam: ATRAUMATIC, NORMAL INSPECTION, NORMOCEPHALIC - Eye Exam Eye Exam: EOMI, Normal appearance, PERRL Pupil Exam: NORMAL ACCOMODATION, PERRL - ENT Exam ENT Exam: Mucous Membranes Moist, Normal Exam - Neck Exam Neck Exam: Full ROM, Normal Inspection - Respiratory Exam Respiratory Exam: Clear to Ausculation Bilateral, NORMAL BREATHING PATTERN - Cardiovascular Exam Cardiovascular Exam: REGULAR RHYTHM, +S1, +S2 - GI/Abdominal Exam GI & Abdominal Exam: Soft, Normal Bowel Sounds - Extremities Exam Extremities Exam: Full ROM, Normal Inspection - Back Exam Back Exam: CVA tenderness (R) - Neurological Exam Neurological Exam: Alert, Awake, Oriented x3 - Psychiatric Exam Psychiatric exam: Normal Affect, Normal Mood - Skin Skin Exam: Dry, Intact, Normal Color, Warm Assessment and Plan - Assessment and Plan (Free Text) Assessment: 62 yo male with PMH of COPD presented to ED due to Cough, SOb, N/V and diarrhea, Admitted to Telemetry to manage COPD exacerbation + Pneumonia. Chest X-ray: Chronic changes of emphysema noted, There are coarsened interstitial markings most pronounced in the LEFT mid to lower lung fierld, R/o viral illness-interstitial pneumonia CT Scan: fatty hepatic infiltration, 2 small low attenuation foci left lobe of the liver unchanged. the left renal cyst unchanged. minimal distention several loops of proximal small bowel left upper and mid abdomen with minimal wall thickening. R/O mild enteritis. Wall thickening of the urinary bladder in part due to incomplete distention and muscular hypertrophy however correlation with urinalysis to exclude cystitis or other intrinsic/invasive wall lesion inferior. Small nodular densities left lingular region and left lung base. F/U Ct scan in 6mo could be performed to assess stability. Blood culture Pending Plan COPD exacerbation + pneumonia Afebirle since 05/30 15:06 last Increase in WBC 12.3->23 possible due to salumedrol BC and SC pending S/P vanco and Pip/tazo in ER on Vancomycin 1 gm Q12h day 2 On Pip/tazo 3.375 gm Day 2 Duoneb 3ml INH albuterol prn Morphine and acetaminophen for pain Zofran for nausea/vomiting Patient denies BM or vomit since ER F/U UA DVT prophylaxis Lovenox 40sc SCD <Diana Tyson - Last Filed: 05/31/18 18:07> Objective - Vital Signs/Intake and Output Vital Signs (last 24 hours): Temp Pulse Resp BP Pulse Ox 97.5 F L 75 20 97/66 L 94 L 05/31/18 16:34 05/31/18 16:34 05/31/18 16:34 05/31/18 16:34 05/31/18 16:34 - Medications Medications: Current Medications Acetaminophen (Tylenol 325mg Tab) 650 mg PO Q6 PRN PRN Reason: Pain, moderate (4-7) Albuterol Sulfate (Albuterol 0.083% Inhal Fernanda (2.5 Mg/3 Ml) Ud) 2.5 mg INH RQ4 PRN PRN Reason: Shortness of Breath Last Admin: 05/31/18 07:37 Dose: 2.5 mg Albuterol Sulfate (Albuterol 0.083% Inhal Fernanda (2.5 Mg/3 Ml) Ud) 2.5 mg IH Q4 PRN PRN Reason: asthma Albuterol/Ipratropium (Duoneb 3 Mg/0.5 Mg (3 Ml) Ud) 3 ml INH RQID [facility] Last Admin: 05/31/18 15:13 Dose: 3 ml Aspirin (Ecotrin) 81 mg PO DAILY [facility] Last Admin: 05/31/18 08:56 Dose: 81 mg Enoxaparin Sodium (Lovenox) 40 mg SC DAILY [facility]; Protocol Last Admin: 05/31/18 08:56 Dose: 40 mg Folic Acid (Folic Acid) 1 mg PO DAILY [facility] Last Admin: 05/31/18 08:56 Dose: 1 mg Vancomycin HCl 1 gm/ Sodium (Chloride) 250 mls @ 166.667 mls/hr IVPB Q12 [facility]; Protocol Last Admin: 05/31/18 08:58 Dose: 166.667 mls/hr Piperacillin Sod/Tazobactam (Sod 3.375 gm/ Sodium Chloride) 100 mls @ 100 mls/hr IVPB 0300,0900,1500,2100 [facility]; Protocol Last Admin: 05/31/18 17:27 Dose: 100 mls/hr Lactobacillus Acidophilus (Bacid Acidophilus) 1 cap PO BID [facility] Last Admin: 05/31/18 17:25 Dose: 1 cap Methylprednisolone (Solu-Medrol) 40 mg IVP Q12 [facility] Montelukast Sodium (Singulair) 10 mg PO HS [facility] Last Admin: 05/31/18 02:16 Dose: 10 mg Morphine Sulfate (Morphine) 2 mg IVP Q6 PRN PRN Reason: Pain, moderate (4-7) Last Admin: 05/30/18 16:33 Dose: 2 mg Ondansetron HCl (Zofran Inj) 4 mg IVP Q6 PRN PRN Reason: Nausea/Vomiting Pantoprazole Sodium (Protonix Inj) 40 mg IVP DAILY [facility] Last Admin: 05/31/18 08:57 Dose: 40 mg Thiamine HCl (Vitamin B1 Tab) 100 mg PO DAILY [facility] Last Admin: 05/31/18 08:58 Dose: 100 mg Tiotropium [place] (Spiriva) 18 mcg IH DAILY [facility] Last Admin: 05/31/18 09:02 Dose: 18 mcg - Labs Labs: 05/31/18 05:30 05/31/18 05:30 Attending/Attestation - Attestation I have personally seen and examined this patient.: Yes I have fully participated in the care of the patient.: Yes I have reviewed all pertinent clinical information, including history, physical exam and plan: Yes Notes (Text): 05/31/18 18:05 Pneumonia, Bacterial COPD exacerbation Diarrhea resolved - taper Solumedrol, cont Duoneb - cont IV Zosyn and Vanco
[2018-05-31] MEDS: Albuterol 0.083% Inhal Sol (2.5 mg/3 mL) UD INH PRN ×3 (07:37→19:01)
[2018-05-31] MEDS: Albuterol-Ipratrop 3 mg / 0.5 (3 ml) UD INH SCH ×3 (07:40→15:13)
[2018-05-31] MEDS: Lactobacillus Acidophilus 500 MU Cap PO SCH ×2 (08:56→17:25)
[2018-05-31] MEDS: MethylPREDNISolone 40 mg Vial IVP SCH ×3 (08:57→21:42)
[2018-05-31] MEDS ORDERED: Enoxaparin 40 mg Syringe SC SCH (09:00)
[2018-05-31] MEDS: Tiotropium 18 mcg Cap For Inhalation IH SCH (09:02)
--- NOTE | 2018-05-31 09:15 | CARD ---
APPROVED REPORT Date of service: 05/30/2018 EKG Measurement Heart [id number] [place] [id number] [id number] <Conclusion> Normal sinus rhythm Normal ECG
[2018-05-31 11:25] LABS: BANDS 2 % (0-2); LYMPHOCYTE 5 % (20-50); MONOCYTE 4 % (0-10); NEUTROPHIL 89 % (42-75); TOTAL CELLS COUNTED 100
[2018-05-31 11:26] LABS: PLATELET CLUMPS PRESENT; PLATELET ESTIMATE NORMAL (NORMAL)
[2018-06-01] MEDS: Piperacillin/Tazobact 3.375 GM in Sodium Chloride 0.9% 100 ML IVPB SCH ×2 (05:17→08:54)
[2018-06-01 05:41] LABS: HEMOGLOBIN 12.4 g/dL (12.0-18.0); MEAN CELL VOLUME 94.2 fl (80.0-94.0); MEAN CORPUSCULAR HEMOGLOBIN 31.3 pg (27.0-31.0); MEAN CORPUSCULAR HGB CONC 33.2 g/dL (33.0-37.0); RBC 3.97 Mil/uL (4.40-5.90); WHITE BLOOD COUNT 12.8 K/uL (4.8-10.8)
[2018-06-01 06:11] LABS: ALB/GLOB RATIO 1.2 (1.0-2.1); ALBUMIN 3.7 g/dL (3.5-5.0); ALT/SGPT 22 U/L (21-72); AST/SGOT 25 U/L (17-59); BLOOD UREA NITROGEN 10 mg/dl (9-20); CALCIUM 9.3 mg/dL (8.4-10.2); GFR NON-AFRICAN AMERICAN > 60
[2018-06-01 06:47] LABS: SQUAMOUS EPITHIAL < 1 /hpf (0-5); URINE BACTERIA RARE (<OCC); URINE BILIRUBIN NEGATIVE (NEGATIVE); URINE BLOOD NEGATIVE (NEGATIVE); URINE CLARITY CLEAR (Clear); URINE COLOR YELLOW (YELLOW); URINE GLUCOSE (UA) NEG (NEGATIVE); URINE LEUKOCYTE ESTERASE NEG Leu/uL (Negative); URINE PROTEIN NEGATIVE (NEGATIVE); URINE UROBILINOGEN 0.2-1.0 mg/dL (0.2-1.0)
[2018-06-01] MEDS: Albuterol-Ipratrop 3 mg / 0.5 (3 ml) UD INH SCH ×2 (07:53→11:12)
[2018-06-01 08:01] VITALS: RESP 20; O2SAT 94
[2018-06-01] MEDS: MethylPREDNISolone 40 mg Vial IVP SCH (08:55)
[2018-06-01] MEDS: Tiotropium 18 mcg Cap For Inhalation IH SCH (08:56)
[2018-06-01] MEDS: Lactobacillus Acidophilus 500 MU Cap PO SCH (08:57)
[2018-06-01] MEDS ORDERED: Albuterol HFA 90 mcg/actuation (8 g) IH PRN (10:03)
--- NOTE | 2018-06-01 10:03 | CP.PCM.DIS ---
<Ld Gtz - Last Filed: 06/01/18 11:04> Provider - Provider Date of Admission: 05/30/18 14:33 Attending physician: Donovan Martinez MD Time Spent in preparation of Discharge (in minutes): 15 Diagnosis - Discharge Diagnosis (1) COPD exacerbation Status: Acute (2) Gastroenteritis Status: Resolved (3) Pneumonia Status: Acute (4) Sepsis Status: Resolved Hospital Course - Lab Results Lab Results: Micro Results 05/30/18 13:40 Blood-Venous Blood Culture - Preliminary NO GROWTH AFTER 24 HOURS Most Recent Lab Values WBC 12.8 K/uL (4.8-10.8) H 06/01/18 04:20 RBC 3.97 Mil/uL (4.40-5.90) L 06/01/18 04:20 Hgb 12.4 g/dL (12.0-18.0) 06/01/18 04:20 Hct 37.4 % (35.0-51.0) 06/01/18 04:20 MCV 94.2 fl (80.0-94.0) H 06/01/18 04:20 MCH 31.3 pg (27.0-31.0) H 06/01/18 04:20 MCHC 33.2 g/dL (33.0-37.0) 06/01/18 04:20 RDW 14.0 % (11.5-14.5) 06/01/18 04:20 Plt Count 309 K/uL (130-400) 06/01/18 04:20 MPV 7.8 fl (7.2-11.7) 05/31/18 05:30 Neut % (Auto) 91.1 % (50.0-75.0) H 05/31/18 05:30 Lymph % (Auto) 2.7 % (20.0-40.0) L 05/31/18 05:30 Dawson % (Auto) 5.9 % (0.0-10.0) 05/31/18 05:30 Eos % (Auto) 0.0 % (0.0-4.0) 05/31/18 05:30 Baso % (Auto) 0.3 % (0.0-2.0) 05/31/18 05:30 Neut # (Auto) 20.9 K/uL (1.8-7.0) H 05/31/18 05:30 Lymph # (Auto) 0.6 K/uL (1.0-4.3) L 05/31/18 05:30 Dawson # (Auto) 1.3 K/uL (0.0-0.8) H 05/31/18 05:30 Eos # (Auto) 0.0 K/uL (0.0-0.7) 05/31/18 05:30 Baso # (Auto) 0.1 K/uL (0.0-0.2) 05/31/18 05:30 Neutrophils % (Manual) 89 % (42-75) H 05/31/18 05:30 Band Neutrophils % 2 % (0-2) 05/31/18 05:30 Lymphocytes % (Manual) 5 % (20-50) L 05/31/18 05:30 Monocytes % (Manual) 4 % (0-10) 05/31/18 05:30 Eosinophils % (Manual) 1 % (0-7) 05/30/18 13:40 Platelet Estimate Normal (NORMAL) 05/31/18 05:30 Plt Clumps, EDTA Present 05/31/18 05:30 Large Platelets Present 05/30/18 13:40 RBC Morphology Normal (NORMAL) 05/31/18 05:30 Anisocytosis (manual) Slight 05/30/18 13:40 pO2 46 mm/Hg (30-55) 05/30/18 15:34 VBG pH 7.37 (7.32-7.43) 05/30/18 15:34 VBG pCO2 35 mmHg (40-60) L 05/30/18 15:34 VBG HCO3 21.0 mmol/L 05/30/18 15:34 VBG Total CO2 21.3 mmol/L (22-28) L 05/30/18 15:34 VBG O2 Sat (Calc) 83.4 % (40-65) H 05/30/18 15:34 VBG Base Excess -4.4 mmol/L (0.0-2.0) L 05/30/18 15:34 VBG Potassium 3.7 mmol/L (3.6-5.2) 05/30/18 15:34 Sodium 133.0 mmol/L (132-148) 05/30/18 15:34 Chloride 102.0 mmol/L (98-107) 05/30/18 15:34 Glucose 62 mg/dL (75-110) L 05/30/18 15:34 Lactate 2.6 mmol/L (0.7-2.1) H 05/30/18 15:34 FiO2 21.0 % 05/30/18 15:34 Blood Gas Comments Lac=2.6 05/30/18 15:34 Crit Value Called To dion Plunkett 05/30/18 15:34 Crit Value Called By 22 05/30/18 15:34 Crit Value Read Back Y 05/30/18 15:34 Blood Gas Notified Time 1540 05/30/18 15:34 Sodium 136 mmol/l (132-148) 06/01/18 04:20 Potassium 4.6 MMOL/L (3.6-5.0) 06/01/18 04:20 Chloride 103 mmol/L (98-107) 06/01/18 04:20 Carbon Dioxide 26 mmol/L (22-30) 06/01/18 04:20 Anion Gap 12 (10-20) 06/01/18 04:20 BUN 10 mg/dl (9-20) 06/01/18 04:20 Creatinine 0.6 mg/dl (0.8-1.5) L 06/01/18 04:20 Est GFR ( Amer) > 60 06/01/18 04:20 Est GFR (Non-Af Amer) > 60 06/01/18 04:20 Random Glucose 138 mg/dL (75-110) H 06/01/18 04:20 Calcium 9.3 mg/dL (8.4-10.2) 06/01/18 04:20 Total Bilirubin 0.5 mg/dl (0.2-1.3) 06/01/18 04:20 AST 25 U/L (17-59) 06/01/18 04:20 ALT 22 U/L (21-72) 06/01/18 04:20 Alkaline Phosphatase 55 U/L (38-126) 06/01/18 04:20 Total Protein 6.8 G/DL (6.3-8.2) 06/01/18 04:20 Albumin 3.7 g/dL (3.5-5.0) 06/01/18 04:20 Globulin 3.1 gm/dL (2.2-3.9) 06/01/18 04:20 Albumin/Globulin Ratio 1.2 (1.0-2.1) 06/01/18 04:20 Venous Blood Potassium 3.7 mmol/L (3.6-5.2) 05/30/18 15:34 Urine Color Yellow (YELLOW) 06/01/18 05:00 Urine Clarity Clear (Clear) 06/01/18 05:00 Urine pH 7.0 (5.0-8.0) 06/01/18 05:00 Ur Specific [place] 1.013 (1.003-1.030) 06/01/18 05:00 Urine Protein Negative mg/dL (NEGATIVE) 06/01/18 05:00 Urine Glucose (UA) Neg mg/dL (NEGATIVE) 06/01/18 05:00 Urine Ketones Negative mg/dL (NEGATIVE) 06/01/18 05:00 Urine Blood Negative (NEGATIVE) 06/01/18 05:00 Urine Nitrate Negative (NEGATIVE) 06/01/18 05:00 Urine Bilirubin Negative (NEGATIVE) 06/01/18 05:00 Urine Urobilinogen 0.2-1.0 mg/dL (0.2-1.0) 06/01/18 05:00 Ur Leukocyte Esterase Neg Leonidas/uL (Negative) 06/01/18 05:00 Urine RBC (Auto) 1 /hpf (0-3) 06/01/18 05:00 Urine Microscopic WBC < 1 /hpf (0-5) 06/01/18 05:00 Ur Squamous Epith Cells < 1 /hpf (0-5) 06/01/18 05:00 Urine Bacteria Rare (<OCC) 06/01/18 05:00 - Hospital Course Hospital Course: 62 yo male with PMH of COPD presented to ED due to Cough, SOb, N/V and diarrhea, Admitted to Telemetry to manage COPD exacerbation + Pneumonia. In ED Initial Impression: N/V/D, shortness of breath Vitals: 99.3 temp, 135 pulse, 101/75 bp, resp 24, 95 ox saturation CBC: WBC 12.3 BMP: WNL Patient received: Duoneb 3ml INH solumedrol Normal saline IV Pepcid 20mg IVP Zofran 4mg IVP IV Vanco IV pip/tazo Chest X-ray: Chronic changes of emphysema noted, There are coarsened interstitial markings most pronounced in the LEFT mid to lower lung fierld, R/o viral illness-interstitial pneumonia CT Scan: fatty hepatic infiltration, 2 small low attenuation foci left lobe of the liver unchanged. the left renal cyst unchanged. minimal distention several loops of proximal small bowel left upper and mid abdomen with minimal wall thickening. R/O mild enteritis. Wall thickening of the urinary bladder in part due to incomplete distention and muscular hypertrophy however correlation with urinalysis to exclude cystitis or other intrinsic/invasive wall lesion inferior. Small nodular densities left lingular region and left lung base. F/U Ct scan in 6mo could be performed to assess stability. Blood culture no growth, final result is pending. Patient seen and examined at bedside today, patient is feeling better, no acute event overnight and is ready to be discharged home Patient denies N/V, dizziness, chest pain, sob, abd pain diarrhea or constipation. Chart reviewed patient is stable to be DC home and follow up PCP Patient scheduled for outpatient clinic on 06/02/18 at 9:30 am Patient need a follow up CT scan after treatment Patient will be DC on Omnicef and Azithromycin, and medrol pack. Plan discussed with doctor Jah. Discharge Exam - Head Exam Head Exam: ATRAUMATIC, NORMAL INSPECTION, NORMOCEPHALIC - Eye Exam Eye Exam: EOMI, Normal appearance, PERRL Pupil Exam: NORMAL ACCOMODATION, PERRL - Respiratory Exam Respiratory Exam: Rales, NORMAL BREATHING PATTERN, UNREMARKABLE - Cardiovascular Exam Cardiovascular Exam: REGULAR RHYTHM, +S1, +S2 - GI/Abdominal Exam GI & Abdominal Exam: Normal Bowel Sounds, Unremarkable - Back Exam Back exam: NORMAL INSPECTION - Neurological Exam Neurological exam: Alert, CN II-XII Intact, Normal Gait, Oriented x3, Reflexes Normal - Psychiatric Exam Psychiatric exam: Normal Affect, Normal Mood - Skin Skin Exam: Dry, Intact, Normal Color, Warm Discharge Plan - Discharge Medications Prescriptions: Azithromycin 250 mg PO Q24H 5 Days #6 tablet Cefdinir [Omnicef] 300 mg PO Q12 10 Days cap Fluticasone/Salmeterol [Airduo Respiclick 113-14 Mcg] 2 puff IH Q12 #1 Methylprednisolone [Medrol Dose Pack (21 tabs)] 4 mg PO DAILY #21 mg Montelukast Sodium [Singulair] 10 mg PO HS #30 tablet - Follow Up Plan Condition: FAIR Disposition: HOME/ ROUTINE Instructions: Pneumonia, Adult (DC), Exacerbation of COPD (DC) Additional Instructions: Patient Scheduled for transition clinic at 9:20 am on 06/02/18. Patient need A to have a f/u ct scan after treatment Referrals: [facility] [Outside] Hortencia Johnson MD [Family Provider] - <Donovan Martinez - Last Filed: 06/01/18 11:50> Provider - Provider Date of Admission: 05/30/18 14:33 Attending physician: Donovan Martinez MD Hospital Course - Lab Results Lab Results: Micro Results 05/30/18 13:40 Blood-Venous Blood Culture - Preliminary NO GROWTH AFTER 24 HOURS Most Recent Lab Values WBC 12.8 K/uL (4.8-10.8) H 06/01/18 04:20 RBC 3.97 Mil/uL (4.40-5.90) L 06/01/18 04:20 Hgb 12.4 g/dL (12.0-18.0) 06/01/18 04:20 Hct 37.4 % (35.0-51.0) 06/01/18 04:20 MCV 94.2 fl (80.0-94.0) H 06/01/18 04:20 MCH 31.3 pg (27.0-31.0) H 06/01/18 04:20 MCHC 33.2 g/dL (33.0-37.0) 06/01/18 04:20 RDW 14.0 % (11.5-14.5) 06/01/18 04:20 Plt Count 309 K/uL (130-400) 06/01/18 04:20 MPV 7.8 fl (7.2-11.7) 05/31/18 05:30 Neut % (Auto) 91.1 % (50.0-75.0) H 05/31/18 05:30 Lymph % (Auto) 2.7 % (20.0-40.0) L 05/31/18 05:30 Dawson % (Auto) 5.9 % (0.0-10.0) 05/31/18 05:30 Eos % (Auto) 0.0 % (0.0-4.0) 05/31/18 05:30 Baso % (Auto) 0.3 % (0.0-2.0) 05/31/18 05:30 Neut # (Auto) 20.9 K/uL (1.8-7.0) H 05/31/18 05:30 Lymph # (Auto) 0.6 K/uL (1.0-4.3) L 05/31/18 05:30 Dawson # (Auto) 1.3 K/uL (0.0-0.8) H 05/31/18 05:30 Eos # (Auto) 0.0 K/uL (0.0-0.7) 05/31/18 05:30 Baso # (Auto) 0.1 K/uL (0.0-0.2) 05/31/18 05:30 Neutrophils % (Manual) 89 % (42-75) H 05/31/18 05:30 Band Neutrophils % 2 % (0-2) 05/31/18 05:30 Lymphocytes % (Manual) 5 % (20-50) L 05/31/18 05:30 Monocytes % (Manual) 4 % (0-10) 05/31/18 05:30 Eosinophils % (Manual) 1 % (0-7) 05/30/18 13:40 Platelet Estimate Normal (NORMAL) 05/31/18 05:30 Plt Clumps, EDTA Present 05/31/18 05:30 Large Platelets Present 05/30/18 13:40 RBC Morphology Normal (NORMAL) 05/31/18 05:30 Anisocytosis (manual) Slight 05/30/18 13:40 pO2 46 mm/Hg (30-55) 05/30/18 15:34 VBG pH 7.37 (7.32-7.43) 05/30/18 15:34 VBG pCO2 35 mmHg (40-60) L 05/30/18 15:34 VBG HCO3 21.0 mmol/L 05/30/18 15:34 VBG Total CO2 21.3 mmol/L (22-28) L 05/30/18 15:34 VBG O2 Sat (Calc) 83.4 % (40-65) H 05/30/18 15:34 VBG Base Excess -4.4 mmol/L (0.0-2.0) L 05/30/18 15:34 VBG Potassium 3.7 mmol/L (3.6-5.2) 05/30/18 15:34 Sodium 133.0 mmol/L (132-148) 05/30/18 15:34 Chloride 102.0 mmol/L (98-107) 05/30/18 15:34 Glucose 62 mg/dL (75-110) L 05/30/18 15:34 Lactate 2.6 mmol/L (0.7-2.1) H 05/30/18 15:34 FiO2 21.0 % 05/30/18 15:34 Blood Gas Comments Lac=2.6 05/30/18 15:34 Crit Value Called To dion Plunkett 05/30/18 15:34 Crit Value Called By 22 05/30/18 15:34 Crit Value Read Back Y 05/30/18 15:34 Blood Gas Notified Time 1540 05/30/18 15:34 Sodium 136 mmol/l (132-148) 06/01/18 04:20 Potassium 4.6 MMOL/L (3.6-5.0) 06/01/18 04:20 Chloride 103 mmol/L (98-107) 06/01/18 04:20 Carbon Dioxide 26 mmol/L (22-30) 06/01/18 04:20 Anion Gap 12 (10-20) 06/01/18 04:20 BUN 10 mg/dl (9-20) 06/01/18 04:20 Creatinine 0.6 mg/dl (0.8-1.5) L 06/01/18 04:20 Est GFR ( Amer) > 60 06/01/18 04:20 Est GFR (Non-Af Amer) > 60 06/01/18 04:20 Random Glucose 138 mg/dL (75-110) H 06/01/18 04:20 Calcium 9.3 mg/dL (8.4-10.2) 06/01/18 04:20 Total Bilirubin 0.5 mg/dl (0.2-1.3) 06/01/18 04:20 AST 25 U/L (17-59) 06/01/18 04:20 ALT 22 U/L (21-72) 06/01/18 04:20 Alkaline Phosphatase 55 U/L (38-126) 06/01/18 04:20 Total Protein 6.8 G/DL (6.3-8.2) 06/01/18 04:20 Albumin 3.7 g/dL (3.5-5.0) 06/01/18 04:20 Globulin 3.1 gm/dL (2.2-3.9) 06/01/18 04:20 Albumin/Globulin Ratio 1.2 (1.0-2.1) 06/01/18 04:20 Venous Blood Potassium 3.7 mmol/L (3.6-5.2) 05/30/18 15:34 Urine Color Yellow (YELLOW) 06/01/18 05:00 Urine Clarity Clear (Clear) 06/01/18 05:00 Urine pH 7.0 (5.0-8.0) 06/01/18 05:00 Ur Specific [place] 1.013 (1.003-1.030) 06/01/18 05:00 Urine Protein Negative mg/dL (NEGATIVE) 06/01/18 05:00 Urine Glucose (UA) Neg mg/dL (NEGATIVE) 06/01/18 05:00 Urine Ketones Negative mg/dL (NEGATIVE) 06/01/18 05:00 Urine Blood Negative (NEGATIVE) 06/01/18 05:00 Urine Nitrate Negative (NEGATIVE) 06/01/18 05:00 Urine Bilirubin Negative (NEGATIVE) 06/01/18 05:00 Urine Urobilinogen 0.2-1.0 mg/dL (0.2-1.0) 06/01/18 05:00 Ur Leukocyte Esterase Neg Leonidas/uL (Negative) 06/01/18 05:00 Urine RBC (Auto) 1 /hpf (0-3) 06/01/18 05:00 Urine Microscopic WBC < 1 /hpf (0-5) 06/01/18 05:00 Ur Squamous Epith Cells < 1 /hpf (0-5) 06/01/18 05:00 Urine Bacteria Rare (<OCC) 06/01/18 05:00 Vancomycin Trough 6.5 ug/mL (5.0-10.0) 06/01/18 09:25 Attending/Attestation - Attestation I have personally seen and examined this patient.: Yes I have fully participated in the care of the patient.: Yes I have reviewed all pertinent clinical information, including history, physical exam and plan: Yes Notes (Text): 06/01/18 11:49 Patient seen and examined with resident. Case discussed and agreed with assessment. Patient discharged in stable condition.
[2018-06-01 11:42] VITALS: BP 102/70; PULSE 80; TEMP 97.5
== END 2018-06-01 12:38 | disposition home or self-care (01) | DRG 584 ==
LOC: H.ER 12:50 → H.ERHOLD 14:33 → H.TEL 05-31 02:02
DX: A41.9 Sepsis, unspecified organism (principal); J15.9 Unspecified bacterial pneumonia; J44.0 Chronic obstructive pulmonary disease with (acute) lower respiratory infection; J44.1 Chronic obstructive pulmonary disease with (acute) exacerbation; K52.9 Noninfective gastroenteritis and colitis, unspecified; F17.210 Nicotine dependence, cigarettes, uncomplicated; N28.1 Cyst of kidney, acquired; Z79.82 Long term (current) use of aspirin

== ENCOUNTER 2018-06-25 16:24 | Observation (INO) | payer MEDICAID ==
[2018-06-25 16:24] VITALS: BMI 20.9
[2018-06-25] MEDS ORDERED: Albuterol-Ipratrop 3 mg / 0.5 (3 ml) UD ONE (16:42)
[2018-06-25] MEDS ORDERED: Albuterol-Ipratrop 3 mg / 0.5 (3 ml) UD INH STA (16:44)
[2018-06-25 17:02] LABS: ABG ALLEN TEST YES; ARTERIAL BLOOD GAS HCO3 25.2 mmol/L (21-28); ARTERIAL BLOOD GAS O2 SAT 99.4 % (95-98); ARTERIAL BLOOD GAS PCO2 42 mm/Hg (35-45); ARTERIAL BLOOD GAS PH 7.39 (7.35-7.45); ARTERIAL BLOOD GAS PO2 139 mm/Hg (80-100); ARTERIAL BLOOD GAS TCO2 26.7 mmol/L (22-28)
--- NOTE | 2018-06-25 17:09 | ED PDOC ---
HPI: SOB/CHF/COPD Time Seen by Provider: 06/25/18 16:40 Chief Complaint (Nursing): Respiratory Distress Chief Complaint (Provider): Respiratory Distress History Per: Patient History/Exam Limitations: no limitations Onset/Duration Of Symptoms: Days (x2) Current Symptoms Are (Timing): Still Present Quality: Tightness Associated Symptoms: Productive Cough. denies: Fever, Ankle/Leg Swelling Additional Complaint(s): 62 year old male with a history of COPD, asthma, emphysema, and pneumonia presents to the ED with COPD exacerbation for the last two days. Patient states he has been having cough with more sputum than his baseline. He has chest tightness despite taking all of his medications for COPD. Patient has a runny nose and shortness of breath, but denies any hemoptysis, fever, sore throat, or leg swelling. PMD: Clinic Past Medical History Reviewed: Historical Data, Nursing Documentation, Vital Signs Vital Signs: Last Vital Signs Temp 98.8 F 06/25/18 16:36 Pulse 116 H 06/25/18 16:36 Resp 32 H 06/25/18 16:36 BP 128/72 06/25/18 16:36 Pulse Ox 89 L 06/25/18 16:36 - Medical History PMH: Asthma, COPD, Emphysema, Pneumonia Denies: Arthritis (knees), HIV, Chronic Kidney Disease - Family History Family History: States: Unknown Family Hx - Immunization History Hx Tetanus Toxoid Vaccination: No Hx Influenza Vaccination: Yes Hx Pneumococcal Vaccination: Yes - Home Medications Home Medications: Ambulatory Orders Medication Instructions Recorded Tiotropium [Spiriva] 18 mcg IH DAILY #1 cap 11/05/17 Albuterol 0.083% [Albuterol 0.083% 3 ml IH Q4 PRN #50 neb 04/18/18 Inhal Fernanda (2.5 mg/3 ml) UD] Albuterol HFA [Ventolin HFA 90 2 puff IH Q4H PRN #1 inh 04/18/18 mcg/actuation (8 g)] Albuterol 0.083% [Albuterol 0.083% 2.5 mg INH RQ4 PRN neb 06/01/18 Inhal Fernanda (2.5 mg/3 ml) UD] Aspirin [Ecotrin] 81 mg PO DAILY tabec 06/01/18 Fluticasone/Salmeterol [Airduo 2 puff IH Q12 #1 06/01/18 Respiclick 113-14 Mcg] Montelukast Sodium [Singulair] 10 mg PO HS #30 tablet 06/01/18 Methylprednisolone [Medrol Dose 4 mg PO ASDIR #21 mg 06/27/18 Pack (21 tabs)] guaiFENesin [Mucinex LA] 600 mg PO Q12 #30 tab 06/27/18 levoFLOXacin [Levaquin] 500 mg PO DAILY #4 tab 06/27/18 - Allergies Allergies/Adverse Reactions: Allergies Allergy/AdvReac Type Severity Reaction Status Date / Time No Known Allergies Allergy Verified 05/30/18 12:59 Review of Systems ROS Statement: Except As Marked, All Systems Reviewed And Found Negative Constitutional: Negative for: Fever ENT: Positive for: Other (runny nose). Negative for: Throat Pain Cardiovascular: Positive for: Other (chest tightness) Respiratory: Positive for: Cough, Shortness of Breath. Negative for: Hemoptysis Gastrointestinal: Positive for: Diarrhea (intermittent since last admission). Negative for: Vomiting Musculoskeletal: Positive for: Other (no leg swelling) Physical Exam - Reviewed Nursing Documentation Reviewed: Yes Vital Signs Reviewed: Yes - Physical Exam Appears: Positive for: Non-toxic, In Acute Distress Head Exam: Positive for: ATRAUMATIC, NORMOCEPHALIC Skin: Positive for: Warm, Dry Eye Exam: Positive for: EOMI, PERRL ENT: Positive for: Pharynx Is (clear), Other (tacky mucous membranes) Neck: Positive for: Painless ROM, Supple Cardiovascular/Chest: Positive for: Regular Rate, Rhythm. Negative for: Murmur Respiratory: Positive for: Rhonchi (faint), Respiratory Distress (mild), Other (distant breath sounds, poor air movement ). Negative for: Rales Gastrointestinal/Abdominal: Positive for: Soft. Negative for: Tenderness Back: Positive for: Normal Inspection. Negative for: Decreased ROM Extremity: Positive for: Normal ROM. Negative for: Deformity Lymphatic: Negative for: Adenopathy Neurological/Psych: Positive for: Awake, Alert, Oriented, Mood/Affect (Anxious affect ), Other (slight tremor diffusely ) - Laboratory Results Result Diagrams: 06/27/18 06:00 06/27/18 07:00 Lab Results: pCO2 42 mm/Hg (35-45) 06/25/18 16:57 pO2 139 mm/Hg (80-100) H 06/25/18 16:57 HCO3 25.2 mmol/L (21-28) 06/25/18 16:57 ABG pH 7.39 (7.35-7.45) 06/25/18 16:57 ABG Total CO2 26.7 mmol/L (22-28) 06/25/18 16:57 ABG O2 Saturation 99.4 % (95-98) H 06/25/18 16:57 ABG Base Excess 0.3 mmol/L (-2.0-3.0) 06/25/18 16:57 Otoniel Test Yes 06/25/18 16:57 ABG Potassium 3.8 mmol/L (3.6-5.2) 06/25/18 16:57 A-a O2 Difference 122.0 mm/Hg 06/25/18 16:57 Sodium 136.0 mmol/L (132-148) 06/25/18 16:57 Chloride 104.0 mmol/L (98-107) 06/25/18 16:57 Glucose 93 mg/dL (75-110) 06/25/18 16:57 Lactate 1.2 mmol/L (0.7-2.1) 06/25/18 16:57 FiO2 44.0 % 06/25/18 16:57 - ECG O2 Sat by Pulse Oximetry: 89 (RA) Pulse Ox Interpretation: Normal Medical Decision Making Medical Decision Making: Time: 1639 Impression: COPD exacerbation Differential diagnoses include but are not limited to: pneumonia, viral illness, flu, sepsis, pneumothorax, and pleural effusion Plan: --EKG --ABG --CMP --Magnesium --Phosphorus --Troponin --CBC --PTT --PT/INR --CXR --Duoneb --solu-medrol --Blood culture --Peak flow pre/post treatment --Influenza Time: 1714 CXR: FINDINGS: LUNGS: The lungs are hyperinflated and there is peribronchial thickening with chronic changes in both lungs. PLEURA: No pleural effusions or pneumothorax. CARDIOVASCULAR: The heart is normal in size. No aortic atherosclerotic calcifications present. OSSEOUS STRUCTURES: Within normal limits for the patient's age. VISUALIZED UPPER ABDOMEN: Normal. OTHER FINDINGS: None. IMPRESSION: No active pulmonary disease. COPD. Time: 1814 --On reevaluation, patient reports feeling slightly better. Labs unremarkable, will continue to observe in ER for improvement. Levaquin ordered for COPD exacerbation. Time: 1999 --On reevaluation, patient continues to feel short of breath. Will hospitalize patient for continued observation for COPD exacerbation. Case discussed with Dr. English for clinic coverage. ScribeAttestation: Documented byShandra Garcia, acting as a scribe for Sirisha Mathews MD. Provider ScribeAttestation: All medical record entries made by the Scribe were at my direction and personally dictated by me. I have reviewed the chart and agree that the record accurately reflects my personal performance of the history, physical exam, medical decision making, and the department course for this patient. I have also personally directed, reviewed, and agree with the discharge instructions and disposition. Disposition - Clinical Impression Clinical Impression: COPD exacerbation - Disposition Disposition Time: 20:00 Condition: FAIR - Pt Status Changed To: Hospital Disposition Of: Observation - POA Present On Arrival: None
[2018-06-25 17:16] LABS: BASO # 0.1 K/uL (0.0-0.2); EOS # 0.5 K/uL (0.0-0.7); EOS % 7.5 % (0.0-4.0); HEMOGLOBIN 13.7 g/dL (12.0-18.0); LYMPH # 1.2 K/uL (1.0-4.3); LYMPH % 17.3 % (20.0-40.0); MEAN CELL VOLUME 95.4 fl (80.0-94.0); MEAN CORPUSCULAR HEMOGLOBIN 31.6 pg (27.0-31.0); MEAN CORPUSCULAR HGB CONC 33.2 g/dL (33.0-37.0); MEAN PLATELET VOLUME 7.6 fl (7.2-11.7); MONO # 0.8 K/uL (0.0-0.8); MONO % 12.3 % (0.0-10.0); NEUT # 4.2 K/uL (1.8-7.0); NEUT % 61.9 % (50.0-75.0); NRBC % 0.1 % (0.0-0.0); RBC 4.34 Mil/uL (4.40-5.90); RED CELL DISTRIBUTION WIDTH 14.2 % (11.5-14.5); WHITE BLOOD COUNT 6.7 K/uL (4.8-10.8)
[2018-06-25 17:24] LABS: PROTHROMBIN TIME 11.3 Seconds (9.8-13.1)
[2018-06-25 17:25] LABS: ALB/GLOB RATIO 1.4 (1.0-2.1); ALBUMIN 4.6 g/dL (3.5-5.0); ALT/SGPT 21 U/L (21-72); AST/SGOT 37 U/L (17-59); BLOOD UREA NITROGEN 10 mg/dl (9-20); CALCIUM 9.7 mg/dL (8.4-10.2); GFR NON-AFRICAN AMERICAN > 60
[2018-06-25 17:26] LABS: PARTIAL THROMBOPLASTIN TIME 35.4 Seconds (25.6-37.1)
[2018-06-25] MEDS ORDERED: levoFLOXacin 750 mg in D5W 150 ML BAG IVPB STA ×2 (18:40→18:50)
[2018-06-25] MEDS ORDERED: levoFLOXacin 750 mg in D5W 750 MG/150 ML BAG IVPB STA (19:35)
--- NOTE | 2018-06-25 20:57 | CP.PCM.HP ---
<MckenzieBrenda - Last Filed: 06/25/18 23:26> History of Present Illness - History of Present Illness History of Present Illness: 62 years old male with hx of Asthma, COPD and heavy tobacco abuser presents to the ED c/o shortness of breath and wheezing since yesterday associated productive cough with white/yellowish clear sputum that increase in amount, also complains of chest tightness. Patient reports compliance with home medications. Otherwise he denies fever, chills, hemoptysis, chest pain, palpitation, headache, dizziness or lightheadedness. On evaluation in ED patient AAO x 3, no respiratory distress, able to speak in full sentences. O2 sat on NC 93% on RA. PMD: at [facility] PMH: Asthma, COPD, Emphysema, Pneumonia PSH: Right Neck cyst removed SH: Smokes <10 cigarettes daily; drink 2 can of beer daily, denies drug use. (hx of marihuana abuse, endorses quit about 6 months ago) FH: No known family medical hx NKDA Medication: as bellow Next of Kin: Cousin, Alia (as per demographics) Present on Admission - Present on Admission Any Indicators Present on Admission: No Review of Systems - Review of Systems All systems: reviewed and no additional remarkable complaints except (HPI) Past Patient History - Infectious Disease Hx of Infectious Diseases: None - Tetanus Immunizations Tetanus Immunization: Unknown - Past Medical History & Family History Past Medical History?: Yes - Past Social History Smoking Status: Current Some Days Smoker - CARDIAC Hx Cardiac Disorders: No - PULMONARY Hx Asthma: Yes Hx Chronic Obstructive Pulmonary Disease (COPD): Yes Hx Emphysema: Yes Hx Pneumonia: Yes - NEUROLOGICAL Hx Neurological Disorder: No - HEENT Hx HEENT Problems: Yes - RENAL Hx Chronic Kidney Disease: No - ENDOCRINE/METABOLIC Hx Endocrine Disorders: No - HEMATOLOGICAL/ONCOLOGICAL Hx Human Immunodeficiency Virus (HIV): No - INTEGUMENTARY Hx Dermatological Problems: No - MUSCULOSKELETAL/RHEUMATOLOGICAL Hx Arthritis: No (knees) - GASTROINTESTINAL Hx Gastrointestinal Disorders: No - PSYCHIATRIC Hx Psychophysiologic Disorder: No Hx Substance Use: No - SURGICAL HISTORY Hx Surgeries: Yes (neck cyst right side) Other/Comment: right neck cyst removal 5 years ago - ANESTHESIA Hx Anesthesia: Yes Hx Anesthesia Reactions: No Hx Malignant Hyperthermia: No Meds Allergies/Adverse Reactions: Allergies Allergy/AdvReac Type Severity Reaction Status Date / Time No Known Allergies Allergy Verified 05/30/18 12:59 Physical Exam - Constitutional Appears: No Acute Distress - Head Exam Head Exam: NORMAL INSPECTION - Eye Exam Eye Exam: EOMI, PERRL - ENT Exam ENT Exam: Mucous Membranes Moist - Respiratory Exam Respiratory Exam: Clear to Auscultation Bilateral, NORMAL BREATHING PATTERN. absent: Rales, Wheezes, Respiratory Distress - Cardiovascular Exam Cardiovascular Exam: REGULAR RHYTHM, +S1, +S2. absent: Tachycardia, Systolic Murmur - GI/Abdominal Exam GI & Abdominal Exam: Normal Bowel Sounds, Soft. absent: Distended, Tenderness - Extremities Exam Extremities exam: Negative for: calf tenderness, pedal edema - Neurological Exam Neurological exam: Alert, CN II-XII Intact, Oriented x3 - Skin Skin Exam: Dry, Normal Color, Warm Results - Vital Signs Recent Vital Signs: Last Vital Signs Temp 98.8 F 06/25/18 16:36 Pulse 83 06/25/18 18:54 Resp 18 06/25/18 18:54 BP 128/72 06/25/18 16:36 Pulse Ox 89 L 06/25/18 20:35 - Labs Result Diagrams: 06/25/18 16:30 06/25/18 16:30 Labs: Laboratory Results - last 24 hr 06/25/18 06/25/18 06/25/18 16:30 16:30 16:30 WBC 6.7 RBC 4.34 L Hgb 13.7 Hct 41.4 MCV 95.4 H MCH 31.6 H MCHC 33.2 RDW 14.2 Plt Count 318 MPV 7.6 Neut % (Auto) 61.9 Lymph % (Auto) 17.3 L [place] % (Auto) 12.3 H Eos % (Auto) 7.5 H Baso % (Auto) 1.0 Neut # (Auto) 4.2 Lymph # (Auto) 1.2 [place] # (Auto) 0.8 Eos # (Auto) 0.5 Baso # (Auto) 0.1 PT INR APTT pCO2 pO2 HCO3 ABG pH ABG Total CO2 ABG O2 Saturation ABG Base Excess Otoniel Test ABG Potassium A-a O2 Difference Glucose Lactate FiO2 Sodium 140 Potassium 4.3 Chloride 103 Carbon Dioxide 28 Anion Gap 13 BUN 10 Creatinine 0.4 L Est GFR ( Amer) > 60 Est GFR (Non-Af Amer) > 60 Random Glucose 93 Calcium 9.7 Phosphorus 3.9 Magnesium 1.8 Total Bilirubin 0.6 AST 37 ALT 21 Alkaline Phosphatase 80 Troponin I < 0.0120 Total Protein 7.8 Albumin 4.6 Globulin 3.2 Albumin/Globulin Ratio 1.4 Arterial Blood Potassium Influenza Typ A,B (EIA) Negative for flu a/b 06/25/18 06/25/18 16:30 16:57 WBC RBC Hgb Hct MCV MCH MCHC RDW Plt Count MPV Neut % (Auto) Lymph % (Auto) [place] % (Auto) Eos % (Auto) Baso % (Auto) Neut # (Auto) Lymph # (Auto) [place] # (Auto) Eos # (Auto) Baso # (Auto) PT 11.3 INR 1.0 APTT 35.4 pCO2 42 pO2 139 H HCO3 25.2 ABG pH 7.39 ABG Total CO2 26.7 ABG O2 Saturation 99.4 H ABG Base Excess 0.3 Otoniel Test Yes ABG Potassium 3.8 A-a O2 Difference 122.0 Glucose 93 Lactate 1.2 FiO2 44.0 Sodium 136.0 Potassium Chloride 104.0 Carbon Dioxide Anion Gap BUN Creatinine Est GFR ( Amer) Est GFR (Non-Af Amer) Random Glucose Calcium Phosphorus Magnesium Total Bilirubin AST ALT Alkaline Phosphatase Troponin I Total Protein Albumin Globulin Albumin/Globulin Ratio Arterial Blood Potassium 3.8 Influenza Typ A,B (EIA) Assessment & Plan - Assessment and Plan (Free Text) Assessment: 62 yo male with PMH of COPD and Asthma admitted for management of COPD exacerbation. Plan COPD exacerbation - admit to med/surg - CXR: No active pulmonary disease. COPD. - afebrile, WBC wnl, flu negative - S/P levaquin - continue levaquin PO daily - cont Duoneb 3ml INH - solumedrol 40mg BID - mucinex for cough - O2 via NC 2 lpm keep O2sat >92% - continue home meds - labs in am - F/u blood culture DVT prophylaxis - Lovenox 40sc - SCD Case seen/discussed with Dr English <Vinod English - Last Filed: 06/26/18 07:12> Results - Vital Signs Recent Vital Signs: Last Vital Signs Temp 98.5 F 06/26/18 00:54 Pulse 84 06/26/18 02:51 Resp 20 06/26/18 02:51 BP 147/93 H 06/26/18 00:54 Pulse Ox 95 06/26/18 02:51 - Labs Result Diagrams: 06/25/18 16:30 06/25/18 16:30 Labs: Laboratory Results - last 24 hr 06/25/18 06/25/18 06/25/18 16:30 16:30 16:30 WBC 6.7 RBC 4.34 L Hgb 13.7 Hct 41.4 MCV 95.4 H MCH 31.6 H MCHC 33.2 RDW 14.2 Plt Count 318 MPV 7.6 Neut % (Auto) 61.9 Lymph % (Auto) 17.3 L [place] % (Auto) 12.3 H Eos % (Auto) 7.5 H Baso % (Auto) 1.0 Neut # (Auto) 4.2 Lymph # (Auto) 1.2 [place] # (Auto) 0.8 Eos # (Auto) 0.5 Baso # (Auto) 0.1 PT INR APTT pCO2 pO2 HCO3 ABG pH ABG Total CO2 ABG O2 Saturation ABG Base Excess Otoniel Test ABG Potassium A-a O2 Difference Glucose Lactate FiO2 Sodium 140 Potassium 4.3 Chloride 103 Carbon Dioxide 28 Anion Gap 13 BUN 10 Creatinine 0.4 L Est GFR ( Amer) > 60 Est GFR (Non-Af Amer) > 60 Random Glucose 93 Calcium 9.7 Phosphorus 3.9 Magnesium 1.8 Total Bilirubin 0.6 AST 37 ALT 21 Alkaline Phosphatase 80 Troponin I < 0.0120 Total Protein 7.8 Albumin 4.6 Globulin 3.2 Albumin/Globulin Ratio 1.4 Arterial Blood Potassium Influenza Typ A,B (EIA) Negative for flu a/b 06/25/18 06/25/18 16:30 16:57 WBC RBC Hgb Hct MCV MCH MCHC RDW Plt Count MPV Neut % (Auto) Lymph % (Auto) [place] % (Auto) Eos % (Auto) Baso % (Auto) Neut # (Auto) Lymph # (Auto) [place] # (Auto) Eos # (Auto) Baso # (Auto) PT 11.3 INR 1.0 APTT 35.4 pCO2 42 pO2 139 H HCO3 25.2 ABG pH 7.39 ABG Total CO2 26.7 ABG O2 Saturation 99.4 H ABG Base Excess 0.3 Otoniel Test Yes ABG Potassium 3.8 A-a O2 Difference 122.0 Glucose 93 Lactate 1.2 FiO2 44.0 Sodium 136.0 Potassium Chloride 104.0 Carbon Dioxide Anion Gap BUN Creatinine Est GFR ( Amer) Est GFR (Non-Af Amer) Random Glucose Calcium Phosphorus Magnesium Total Bilirubin AST ALT Alkaline Phosphatase Troponin I Total Protein Albumin Globulin Albumin/Globulin Ratio Arterial Blood Potassium 3.8 Influenza Typ A,B (EIA) Assessment & Plan - Assessment and Plan (Free Text) Plan: continue on present management as per above, case was discussed with the Resident. Treatment plans and goals were initiated. - Date & Time Date: 06/26/18 Time: 07:12
[2018-06-25] MEDS ORDERED: Albuterol 0.083% Inhal Sol (2.5 mg/3 mL) UD IH PRN (21:57)
[2018-06-25] MEDS ORDERED: Albuterol HFA 90 mcg/actuation (8 g) IH PRN (21:57)
[2018-06-26] MEDS: guaiFENesin-DM 600-30 mg ER Tab PO SCH ×2 (00:36→09:04)
[2018-06-26] MEDS: Albuterol 0.083% Inhal Sol (2.5 mg/3 mL) UD INH PRN ×3 (00:54→19:54)
[2018-06-26 07:24] LABS: BASO % 0.6 % (0.0-2.0); EOS % 0.1 % (0.0-4.0); HEMOGLOBIN 12.8 g/dL (12.0-18.0); LYMPH # 0.5 K/uL (1.0-4.3); LYMPH % 16.9 % (20.0-40.0); MEAN CELL VOLUME 94.9 fl (80.0-94.0); MEAN CORPUSCULAR HEMOGLOBIN 31.9 pg (27.0-31.0); MEAN CORPUSCULAR HGB CONC 33.6 g/dL (33.0-37.0); MEAN PLATELET VOLUME 7.5 fl (7.2-11.7); MONO # 0.4 K/uL (0.0-0.8); MONO % 12.6 % (0.0-10.0); NEUT # 2.1 K/uL (1.8-7.0); NEUT % 69.8 % (50.0-75.0); RBC 4.02 Mil/uL (4.40-5.90); RED CELL DISTRIBUTION WIDTH 13.7 % (11.5-14.5); WHITE BLOOD COUNT 3.1 K/uL (4.8-10.8)
[2018-06-26 08:10] LABS: ALB/GLOB RATIO 1.5 (1.0-2.1); ALBUMIN 4.1 g/dL (3.5-5.0); ALT/SGPT 18 U/L (21-72); AST/SGOT 31 U/L (17-59); BLOOD UREA NITROGEN 11 mg/dl (9-20); CALCIUM 9.4 mg/dL (8.4-10.2); GFR NON-AFRICAN AMERICAN > 60
[2018-06-26] MEDS: FLUTICASONE PROPION/SALMETEROL 113-14 IH SCH ×2 (09:03→21:13)
[2018-06-26] MEDS: levoFLOXacin 750 MG TAB PO SCH (09:04)
[2018-06-26] MEDS: Enoxaparin 40 mg Syringe SC SCH (09:04)
[2018-06-26] MEDS: MethylPREDNISolone 40 mg Vial IVP SCH ×2 (09:05→21:14)
[2018-06-26] MEDS: Tiotropium 18 mcg Cap For Inhalation IH SCH (09:06)
--- NOTE | 2018-06-26 09:21 | CP.PCM.DIS ---
Provider - Provider Date of Admission: 06/25/18 20:25 Attending physician: Vinod English MD Consults: 06/26/18 03:20 Social Work Referral Routine Comment: Smoking cessation Physician Instructions: Reason For Exam: Smoking cessation Time Spent in preparation of Discharge (in minutes): 30 Diagnosis - Discharge Diagnosis (1) COPD exacerbation Status: Acute Comment: - CXR: No active pulmonary disease. COPD. - afebrile, WBC wnl, flu negative. - Levaquin for two days in hospital. - Duoneb 3ml INH. - solumedrol 40mg BID. - mucinex for cough Hospital Course - Lab Results Lab Results: Most Recent Lab Values WBC 3.1 K/uL (4.8-10.8) L D 06/26/18 05:30 RBC 4.02 Mil/uL (4.40-5.90) L 06/26/18 05:30 Hgb 12.8 g/dL (12.0-18.0) 06/26/18 05:30 Hct 38.1 % (35.0-51.0) 06/26/18 05:30 MCV 94.9 fl (80.0-94.0) H 06/26/18 05:30 MCH 31.9 pg (27.0-31.0) H 06/26/18 05:30 MCHC 33.6 g/dL (33.0-37.0) 06/26/18 05:30 RDW 13.7 % (11.5-14.5) 06/26/18 05:30 Plt Count 281 K/uL (130-400) 06/26/18 05:30 MPV 7.5 fl (7.2-11.7) 06/26/18 05:30 Neut % (Auto) 69.8 % (50.0-75.0) 06/26/18 05:30 Lymph % (Auto) 16.9 % (20.0-40.0) L 06/26/18 05:30 [place] % (Auto) 12.6 % (0.0-10.0) H 06/26/18 05:30 Eos % (Auto) 0.1 % (0.0-4.0) 06/26/18 05:30 Baso % (Auto) 0.6 % (0.0-2.0) 06/26/18 05:30 Neut # (Auto) 2.1 K/uL (1.8-7.0) 06/26/18 05:30 Lymph # (Auto) 0.5 K/uL (1.0-4.3) L 06/26/18 05:30 [place] # (Auto) 0.4 K/uL (0.0-0.8) 06/26/18 05:30 Eos # (Auto) 0.0 K/uL (0.0-0.7) 06/26/18 05:30 Baso # (Auto) 0.0 K/uL (0.0-0.2) 06/26/18 05:30 PT 11.3 Seconds (9.8-13.1) 06/25/18 16:30 INR 1.0 06/25/18 16:30 APTT 35.4 Seconds (25.6-37.1) 06/25/18 16:30 pCO2 42 mm/Hg (35-45) 06/25/18 16:57 pO2 139 mm/Hg (80-100) H 06/25/18 16:57 HCO3 25.2 mmol/L (21-28) 06/25/18 16:57 ABG pH 7.39 (7.35-7.45) 06/25/18 16:57 ABG Total CO2 26.7 mmol/L (22-28) 06/25/18 16:57 ABG O2 Saturation 99.4 % (95-98) H 06/25/18 16:57 ABG Base Excess 0.3 mmol/L (-2.0-3.0) 06/25/18 16:57 Otoniel Test Yes 06/25/18 16:57 ABG Potassium 3.8 mmol/L (3.6-5.2) 06/25/18 16:57 A-a O2 Difference 122.0 mm/Hg 06/25/18 16:57 Sodium 136.0 mmol/L (132-148) 06/25/18 16:57 Chloride 104.0 mmol/L (98-107) 06/25/18 16:57 Glucose 93 mg/dL (75-110) 06/25/18 16:57 Lactate 1.2 mmol/L (0.7-2.1) 06/25/18 16:57 FiO2 44.0 % 06/25/18 16:57 Sodium 135 mmol/l (132-148) 06/26/18 05:30 Potassium 3.6 MMOL/L (3.6-5.0) 06/26/18 05:30 Chloride 101 mmol/L (98-107) 06/26/18 05:30 Carbon Dioxide 26 mmol/L (22-30) 06/26/18 05:30 Anion Gap 12 (10-20) 06/26/18 05:30 BUN 11 mg/dl (9-20) 06/26/18 05:30 Creatinine 0.4 mg/dl (0.8-1.5) L 06/26/18 05:30 Est GFR ( Amer) > 60 06/26/18 05:30 Est GFR (Non-Af Amer) > 60 06/26/18 05:30 Random Glucose 166 mg/dL (75-110) H 06/26/18 05:30 Calcium 9.4 mg/dL (8.4-10.2) 06/26/18 05:30 Phosphorus 3.9 mg/dl (2.5-4.5) 06/25/18 16:30 Magnesium 1.8 MG/DL (1.6-2.3) 06/25/18 16:30 Total Bilirubin 0.8 mg/dl (0.2-1.3) 06/26/18 05:30 AST 31 U/L (17-59) 06/26/18 05:30 ALT 18 U/L (21-72) L 06/26/18 05:30 Alkaline Phosphatase 63 U/L (38-126) 06/26/18 05:30 Troponin I < 0.0120 ng/mL (0.00-0.120) 06/25/18 16:30 Total Protein 6.9 G/DL (6.3-8.2) 06/26/18 05:30 Albumin 4.1 g/dL (3.5-5.0) 06/26/18 05:30 Globulin 2.8 gm/dL (2.2-3.9) 06/26/18 05:30 Albumin/Globulin Ratio 1.5 (1.0-2.1) 06/26/18 05:30 Arterial Blood Potassium 3.8 mmol/L (3.6-5.2) 06/25/18 16:57 Influenza Typ A,B (EIA) Negative for flu a/b (NEGATIVE) 06/25/18 16:30 - Hospital Course Hospital Course: 62 yo male with hx of Asthma, COPD and heavy tobacco abuser presented with c/o dypsnea and wheezing admitted for COPD management. CXray showed no active pulmonary disease. Patient was afebrile and hemodynamically stable. Influenza negative. Recieved Levaquin for 2 days, Duonebs and mucinex during his stay. Oxygen saturation was 95%-96% on room air. Discharge Exam - Head Exam Head Exam: NORMAL INSPECTION - Eye Exam Eye Exam: Normal appearance - ENT Exam ENT Exam: Mucous Membranes Moist - Respiratory Exam Respiratory Exam: Wheezes (mild Expiratory wheezing globally ), NORMAL BREATHING PATTERN. absent: Accessory Muscle Use, Chest Wall Tenderness, Decreased Breath Sounds, Prolonged Expiratory Phase, Rales, Rhonchi, Respiratory Distress, Stridor - Cardiovascular Exam Cardiovascular Exam: REGULAR RHYTHM, +S1, +S2 - GI/Abdominal Exam GI & Abdominal Exam: Normal Bowel Sounds, Soft, Unremarkable. absent: Diminished Bowel Sounds, Distended, Firm, Rebound, Rigid, Tenderness - Extremities Exam Extremities exam: normal capillary refill, normal inspection - Neurological Exam Neurological exam: Alert, Oriented x3 - Psychiatric Exam Psychiatric exam: Normal Affect, Normal Mood - Skin Skin Exam: Dry, Intact, Normal Color, Warm Discharge Plan - Follow Up Plan Condition: GOOD Disposition: HOME/ ROUTINE Patient education suggested?: Yes Instructions: Chronic Obstructive Pulmonary Disease (COPD), Including Emphysema Additional Instructions: F/U with PMD in 1 week
--- NOTE | 2018-06-26 09:28 | CARD ---
APPROVED REPORT Date of service: 06/25/2018 EKG Measurement Heart [id number] <Conclusion> Normal sinus rhythm Normal ECG
--- NOTE | 2018-06-26 09:55 | CP.PCM.PN ---
<Asmita Parry - Last Filed: 06/26/18 09:52> Subjective - Date & Time of Evaluation Date of Evaluation: 06/26/18 Time of Evaluation: 09:52 - Subjective Subjective: 62 yo male with PMH of COPD and Asthma admitted for management of COPD exacerbation. Patient reports good appetite and had a BM last night. States his breathing is a bit better this morning but still reports minor dypsnea. Is still coughing with sputum. Hemodynamically stable- afebrile. Denies chest pain, subjective fevers, chills, abdominal pain, nausea or vomiting. Objective - Vital Signs/Intake and Output Vital Signs (last 24 hours): Temp Pulse Resp BP Pulse Ox 98.1 F 77 18 110/79 97 06/26/18 08:40 06/26/18 08:40 06/26/18 08:40 06/26/18 08:40 06/26/18 08:40 - Medications Medications: Current Medications Acetaminophen (Tylenol 325mg Tab) 650 mg PO Q6 PRN PRN Reason: Pain, moderate (4-7) Albuterol (Ventolin Hfa 90 Mcg/Actuation (8 G)) 2 puff IH Q4H PRN PRN Reason: ASTHMA Albuterol Sulfate (Albuterol 0.083% Inhal Fernanda (2.5 Mg/3 Ml) Ud) 2.5 mg INH RQ4 PRN PRN Reason: Shortness of Breath Last Admin: 06/26/18 09:18 Dose: 2.5 mg Albuterol Sulfate (Albuterol 0.083% Inhal Fernanda (2.5 Mg/3 Ml) Ud) 2.5 mg IH RQ4 PRN PRN Reason: asthma Aspirin (Ecotrin) 81 mg PO DAILY [facility] Last Admin: 06/26/18 09:04 Dose: 81 mg Enoxaparin Sodium (Lovenox) 40 mg SC DAILY [facility]; Protocol Last Admin: 06/26/18 09:04 Dose: 40 mg Folic Acid (Folic Acid) 1 mg PO DAILY [facility] Last Admin: 06/26/18 09:04 Dose: 1 mg Guaifenesin/Dextromethorphan (Mucinex-Dm 600-30 Mg) 1 tab PO BID [facility] Last Admin: 06/26/18 09:04 Dose: 1 tab Levofloxacin (Levaquin) 750 mg PO DAILY [facility]; Protocol Last Admin: 06/26/18 09:04 Dose: 750 mg Methylprednisolone (Solu-Medrol) 40 mg IVP Q12H [facility] Last Admin: 06/26/18 09:05 Dose: 40 mg Montelukast Sodium (Singulair) 10 mg PO HS [facility] Last Admin: 06/25/18 23:31 Dose: 10 mg Tiotropium [place] (Spiriva) 18 mcg IH DAILY [facility] Last Admin: 06/26/18 09:06 Dose: 18 mcg - Labs Labs: 06/26/18 05:30 06/26/18 05:30 PT 11.3 Seconds (9.8-13.1) 06/25/18 16:30 INR 1.0 06/25/18 16:30 APTT 35.4 Seconds (25.6-37.1) 06/25/18 16:30 - Constitutional Appears: Non-toxic, No Acute Distress, Chronically Ill - ENT Exam ENT Exam: Mucous Membranes Moist - Respiratory Exam Respiratory Exam: Wheezes (expiratory wheezing; decrease air entry ). absent: Accessory Muscle Use, Chest Wall Tenderness, Prolonged Expiratory Phase, Rales, Rhonchi, Respiratory Distress, Stridor - Cardiovascular Exam Cardiovascular Exam: +S1, +S2 - GI/Abdominal Exam GI & Abdominal Exam: Soft, Normal Bowel Sounds. absent: Distended, Firm, Guarding, Rigid, Tenderness, Rebound - Extremities Exam Extremities Exam: Full ROM, Normal Capillary Refill, Normal Inspection. absent: Calf Tenderness, Pedal Edema, Tenderness - Neurological Exam Neurological Exam: Alert, Awake, Oriented x3 - Psychiatric Exam Psychiatric exam: Normal Affect, Normal Mood - Skin Skin Exam: Dry, Intact, Normal Color, Warm Assessment and Plan (1) COPD exacerbation Status: Acute - Assessment and Plan (Free Text) Assessment: 62 yo male with PMH of COPD and Asthma admitted for management of COPD exacerbation. Plan: COPD exacerbation - Saturating 96% on Room air; 97% on 2 L O2 saturation - CXR: No active pulmonary disease. COPD. - afebrile, WBC wnl, flu negative - Levaquin day 2 - cont Duoneb 3ml INH - solumedrol 40mg BID - mucinex for cough - O2 via NC 2 L Keep O2sat >92% - continue home meds - F/u blood culture DVT prophylaxis - Lovenox 40sc - SCD <Britta Fry - Last Filed: 06/28/18 12:36> Objective - Vital Signs/Intake and Output Vital Signs (last 24 hours): Temp Pulse Resp BP Pulse Ox 98.2 F 78 20 130/60 89 L 06/27/18 08:10 06/27/18 08:10 06/27/18 08:10 06/27/18 08:10 06/27/18 18:19 - Labs Labs: 06/27/18 06:00 06/27/18 07:00 PT 11.3 Seconds (9.8-13.1) 06/25/18 16:30 INR 1.0 06/25/18 16:30 APTT 35.4 Seconds (25.6-37.1) 06/25/18 16:30 Attending/Attestation - Attestation I have personally seen and examined this patient.: Yes I have fully participated in the care of the patient.: Yes I have reviewed all pertinent clinical information, including history, physical exam and plan: Yes Notes (Text): agree with fndngs and plan as above. pt continues to be sob and has rhonchi/wheeze. continue bronchodilators and steroids.
[2018-06-26 17:09] VITALS: RESP 20
[2018-06-26] MEDS: guaiFENesin 600 mg ER Tab PO SCH (21:15)
[2018-06-27 07:44] LABS: HEMOGLOBIN 13.5 g/dL (12.0-18.0); MEAN CELL VOLUME 95.5 fl (80.0-94.0); MEAN CORPUSCULAR HEMOGLOBIN 31.8 pg (27.0-31.0); MEAN CORPUSCULAR HGB CONC 33.3 g/dL (33.0-37.0); RBC 4.23 Mil/uL (4.40-5.90); RED CELL DISTRIBUTION WIDTH 13.8 % (11.5-14.5); WHITE BLOOD COUNT 4.5 K/uL (4.8-10.8)
[2018-06-27 08:02] LABS: BLOOD UREA NITROGEN 13 mg/dl (9-20); CALCIUM 9.2 mg/dL (8.4-10.2); GFR NON-AFRICAN AMERICAN > 60
[2018-06-27 08:11] VITALS: BP 130/60; PULSE 78; TEMP 98.2
[2018-06-27] MEDS: Enoxaparin 40 mg Syringe SC SCH (08:38)
[2018-06-27] MEDS: guaiFENesin 600 mg ER Tab PO SCH (08:38)
[2018-06-27] MEDS: levoFLOXacin 750 MG TAB PO SCH (08:38)
[2018-06-27] MEDS: Tiotropium 18 mcg Cap For Inhalation IH SCH (08:39)
[2018-06-27] MEDS: MethylPREDNISolone 40 mg Vial IVP SCH (08:39)
[2018-06-27] MEDS: Albuterol 0.083% Inhal Sol (2.5 mg/3 mL) UD IH SCH ×2 (09:07→11:09)
--- NOTE | 2018-06-27 10:13 | CP.PCM.DIS ---
<Dax Cisneros - Last Filed: 06/27/18 10:10> Provider - Provider Date of Admission: 06/25/18 20:25 Attending physician: Vinod English MD Primary care physician: [facility] Consults: 06/26/18 03:20 Social Work Referral Routine Comment: Smoking cessation Physician Instructions: Reason For Exam: Smoking cessation Time Spent in preparation of Discharge (in minutes): 40 Diagnosis - Discharge Diagnosis (1) COPD exacerbation Status: Acute Hospital Course - Lab Results Lab Results: Micro Results 06/25/18 17:00 Blood-Venous Blood Culture - Preliminary NO GROWTH AFTER 24 HOURS 06/25/18 16:30 Blood-Venous Blood Culture - Preliminary NO GROWTH AFTER 24 HOURS Most Recent Lab Values WBC 4.5 K/uL (4.8-10.8) L 06/27/18 06:00 RBC 4.23 Mil/uL (4.40-5.90) L 06/27/18 06:00 Hgb 13.5 g/dL (12.0-18.0) 06/27/18 06:00 Hct 40.4 % (35.0-51.0) 06/27/18 06:00 MCV 95.5 fl (80.0-94.0) H 06/27/18 06:00 MCH 31.8 pg (27.0-31.0) H 06/27/18 06:00 MCHC 33.3 g/dL (33.0-37.0) 06/27/18 06:00 RDW 13.8 % (11.5-14.5) 06/27/18 06:00 Plt Count 298 K/uL (130-400) 06/27/18 06:00 MPV 7.5 fl (7.2-11.7) 06/26/18 05:30 Neut % (Auto) 69.8 % (50.0-75.0) 06/26/18 05:30 Lymph % (Auto) 16.9 % (20.0-40.0) L 06/26/18 05:30 [place] % (Auto) 12.6 % (0.0-10.0) H 06/26/18 05:30 Eos % (Auto) 0.1 % (0.0-4.0) 06/26/18 05:30 Baso % (Auto) 0.6 % (0.0-2.0) 06/26/18 05:30 Neut # (Auto) 2.1 K/uL (1.8-7.0) 06/26/18 05:30 Lymph # (Auto) 0.5 K/uL (1.0-4.3) L 06/26/18 05:30 [place] # (Auto) 0.4 K/uL (0.0-0.8) 06/26/18 05:30 Eos # (Auto) 0.0 K/uL (0.0-0.7) 06/26/18 05:30 Baso # (Auto) 0.0 K/uL (0.0-0.2) 06/26/18 05:30 PT 11.3 Seconds (9.8-13.1) 06/25/18 16:30 INR 1.0 06/25/18 16:30 APTT 35.4 Seconds (25.6-37.1) 06/25/18 16:30 pCO2 42 mm/Hg (35-45) 06/25/18 16:57 pO2 139 mm/Hg (80-100) H 06/25/18 16:57 HCO3 25.2 mmol/L (21-28) 06/25/18 16:57 ABG pH 7.39 (7.35-7.45) 06/25/18 16:57 ABG Total CO2 26.7 mmol/L (22-28) 06/25/18 16:57 ABG O2 Saturation 99.4 % (95-98) H 06/25/18 16:57 ABG Base Excess 0.3 mmol/L (-2.0-3.0) 06/25/18 16:57 Otoniel Test Yes 06/25/18 16:57 ABG Potassium 3.8 mmol/L (3.6-5.2) 06/25/18 16:57 A-a O2 Difference 122.0 mm/Hg 06/25/18 16:57 Sodium 136.0 mmol/L (132-148) 06/25/18 16:57 Chloride 104.0 mmol/L (98-107) 06/25/18 16:57 Glucose 93 mg/dL (75-110) 06/25/18 16:57 Lactate 1.2 mmol/L (0.7-2.1) 06/25/18 16:57 FiO2 44.0 % 06/25/18 16:57 Sodium 136 mmol/l (132-148) 06/27/18 07:00 Potassium 3.6 MMOL/L (3.6-5.0) 06/27/18 07:00 Chloride 102 mmol/L (98-107) 06/27/18 07:00 Carbon Dioxide 24 mmol/L (22-30) 06/27/18 07:00 Anion Gap 14 (10-20) 06/27/18 07:00 BUN 13 mg/dl (9-20) 06/27/18 07:00 Creatinine 0.5 mg/dl (0.8-1.5) L 06/27/18 07:00 Est GFR ( Amer) > 60 06/27/18 07:00 Est GFR (Non-Af Amer) > 60 06/27/18 07:00 Random Glucose 185 mg/dL (75-110) H 06/27/18 07:00 Calcium 9.2 mg/dL (8.4-10.2) 06/27/18 07:00 Phosphorus 3.9 mg/dl (2.5-4.5) 06/25/18 16:30 Magnesium 1.8 MG/DL (1.6-2.3) 06/25/18 16:30 Total Bilirubin 0.8 mg/dl (0.2-1.3) 06/26/18 05:30 AST 31 U/L (17-59) 06/26/18 05:30 ALT 18 U/L (21-72) L 06/26/18 05:30 Alkaline Phosphatase 63 U/L (38-126) 06/26/18 05:30 Troponin I < 0.0120 ng/mL (0.00-0.120) 06/25/18 16:30 Total Protein 6.9 G/DL (6.3-8.2) 06/26/18 05:30 Albumin 4.1 g/dL (3.5-5.0) 06/26/18 05:30 Globulin 2.8 gm/dL (2.2-3.9) 06/26/18 05:30 Albumin/Globulin Ratio 1.5 (1.0-2.1) 06/26/18 05:30 Arterial Blood Potassium 3.8 mmol/L (3.6-5.2) 06/25/18 16:57 Influenza Typ A,B (EIA) Negative for flu a/b (NEGATIVE) 06/25/18 16:30 - Hospital Course Hospital Course: 62 y/o with COPD admitted to hosp for persistent SOB despite home treatment. Patients VS were unremarkable other than POx 92. He was treated with IV steroids, Duonebs and IV levaquin and symptoms and PE improved markedly until today that he is stable to be discharge home to finish abx and and steroid course. Discharge Exam - Head Exam Head Exam: NORMAL INSPECTION - Eye Exam Eye Exam: EOMI, PERRL - ENT Exam ENT Exam: Mucous Membranes Moist - Respiratory Exam Respiratory Exam: Wheezes (Scattered). absent: Decreased Breath Sounds, Clear to PA & Lateral, Respiratory Distress - Cardiovascular Exam Cardiovascular Exam: REGULAR RHYTHM, +S1, +S2. absent: Gallop - GI/Abdominal Exam GI & Abdominal Exam: Normal Bowel Sounds, Soft. absent: Distended - Neurological Exam Neurological exam: Alert, Oriented x3 - Psychiatric Exam Psychiatric exam: Normal Affect, Normal Mood - Skin Skin Exam: Normal Color, Warm Discharge Plan - Discharge Medications Prescriptions: guaiFENesin [Mucinex LA] 600 mg PO Q12 #30 tab levoFLOXacin [Levaquin] 500 mg PO DAILY #4 tab Methylprednisolone [Medrol Dose Pack (21 tabs)] 4 mg PO ASDIR #21 mg - Follow Up Plan Condition: STABLE Disposition: HOME/ ROUTINE Patient education suggested?: Yes Instructions: Chronic Obstructive Pulmonary Disease (COPD), Including Emphysema Additional Instructions: F/U with PMD in 1 week Referrals: [facility] [place] [Outside] <Diana Tyson - Last Filed: 06/27/18 13:18> Provider - Provider Date of Admission: 06/25/18 20:25 Attending physician: Vinod English MD Consults: 06/26/18 03:20 Social Work Referral Routine Comment: Smoking cessation Physician Instructions: Reason For Exam: Smoking cessation Hospital Course - Lab Results Lab Results: Micro Results 06/25/18 17:00 Blood-Venous Blood Culture - Preliminary NO GROWTH AFTER 24 HOURS 06/25/18 16:30 Blood-Venous Blood Culture - Preliminary NO GROWTH AFTER 24 HOURS Most Recent Lab Values WBC 4.5 K/uL (4.8-10.8) L 06/27/18 06:00 RBC 4.23 Mil/uL (4.40-5.90) L 06/27/18 06:00 Hgb 13.5 g/dL (12.0-18.0) 06/27/18 06:00 Hct 40.4 % (35.0-51.0) 06/27/18 06:00 MCV 95.5 fl (80.0-94.0) H 06/27/18 06:00 MCH 31.8 pg (27.0-31.0) H 06/27/18 06:00 MCHC 33.3 g/dL (33.0-37.0) 06/27/18 06:00 RDW 13.8 % (11.5-14.5) 06/27/18 06:00 Plt Count 298 K/uL (130-400) 06/27/18 06:00 MPV 7.5 fl (7.2-11.7) 06/26/18 05:30 Neut % (Auto) 69.8 % (50.0-75.0) 06/26/18 05:30 Lymph % (Auto) 16.9 % (20.0-40.0) L 06/26/18 05:30 [place] % (Auto) 12.6 % (0.0-10.0) H 06/26/18 05:30 Eos % (Auto) 0.1 % (0.0-4.0) 06/26/18 05:30 Baso % (Auto) 0.6 % (0.0-2.0) 06/26/18 05:30 Neut # (Auto) 2.1 K/uL (1.8-7.0) 06/26/18 05:30 Lymph # (Auto) 0.5 K/uL (1.0-4.3) L 06/26/18 05:30 [place] # (Auto) 0.4 K/uL (0.0-0.8) 06/26/18 05:30 Eos # (Auto) 0.0 K/uL (0.0-0.7) 06/26/18 05:30 Baso # (Auto) 0.0 K/uL (0.0-0.2) 06/26/18 05:30 PT 11.3 Seconds (9.8-13.1) 06/25/18 16:30 INR 1.0 06/25/18 16:30 APTT 35.4 Seconds (25.6-37.1) 06/25/18 16:30 pCO2 42 mm/Hg (35-45) 06/25/18 16:57 pO2 139 mm/Hg (80-100) H 06/25/18 16:57 HCO3 25.2 mmol/L (21-28) 06/25/18 16:57 ABG pH 7.39 (7.35-7.45) 06/25/18 16:57 ABG Total CO2 26.7 mmol/L (22-28) 06/25/18 16:57 ABG O2 Saturation 99.4 % (95-98) H 06/25/18 16:57 ABG Base Excess 0.3 mmol/L (-2.0-3.0) 06/25/18 16:57 Otoniel Test Yes 06/25/18 16:57 ABG Potassium 3.8 mmol/L (3.6-5.2) 06/25/18 16:57 A-a O2 Difference 122.0 mm/Hg 06/25/18 16:57 Sodium 136.0 mmol/L (132-148) 06/25/18 16:57 Chloride 104.0 mmol/L (98-107) 06/25/18 16:57 Glucose 93 mg/dL (75-110) 06/25/18 16:57 Lactate 1.2 mmol/L (0.7-2.1) 06/25/18 16:57 FiO2 44.0 % 06/25/18 16:57 Sodium 136 mmol/l (132-148) 06/27/18 07:00 Potassium 3.6 MMOL/L (3.6-5.0) 06/27/18 07:00 Chloride 102 mmol/L (98-107) 06/27/18 07:00 Carbon Dioxide 24 mmol/L (22-30) 06/27/18 07:00 Anion Gap 14 (10-20) 06/27/18 07:00 BUN 13 mg/dl (9-20) 06/27/18 07:00 Creatinine 0.5 mg/dl (0.8-1.5) L 06/27/18 07:00 Est GFR ( Amer) > 60 06/27/18 07:00 Est GFR (Non-Af Amer) > 60 06/27/18 07:00 Random Glucose 185 mg/dL (75-110) H 06/27/18 07:00 Calcium 9.2 mg/dL (8.4-10.2) 06/27/18 07:00 Phosphorus 3.9 mg/dl (2.5-4.5) 06/25/18 16:30 Magnesium 1.8 MG/DL (1.6-2.3) 06/25/18 16:30 Total Bilirubin 0.8 mg/dl (0.2-1.3) 06/26/18 05:30 AST 31 U/L (17-59) 06/26/18 05:30 ALT 18 U/L (21-72) L 06/26/18 05:30 Alkaline Phosphatase 63 U/L (38-126) 06/26/18 05:30 Troponin I < 0.0120 ng/mL (0.00-0.120) 06/25/18 16:30 Total Protein 6.9 G/DL (6.3-8.2) 06/26/18 05:30 Albumin 4.1 g/dL (3.5-5.0) 06/26/18 05:30 Globulin 2.8 gm/dL (2.2-3.9) 06/26/18 05:30 Albumin/Globulin Ratio 1.5 (1.0-2.1) 06/26/18 05:30 Arterial Blood Potassium 3.8 mmol/L (3.6-5.2) 06/25/18 16:57 Influenza Typ A,B (EIA) Negative for flu a/b (NEGATIVE) 06/25/18 16:30 Attending/Attestation - Attestation I have personally seen and examined this patient.: Yes I have fully participated in the care of the patient.: Yes I have reviewed all pertinent clinical information, including history, physical exam and plan: Yes Notes (Text): COPD exacerbation Acute Bronchitis - SOB and wheezing resolved - saturation 91-92% on Room air - received Duoneb tx , IV Solumedrol and Levaquin IV - CXR : neg - will d/c home on Medrol dose ebony and Levaquin PO x 4 more days , cont Duonebs
[2018-06-27] MEDS: FLUTICASONE PROPION/SALMETEROL 113-14 IH SCH (12:27)
[2018-06-27 18:18] VITALS: O2SAT 89
== END 2018-06-27 14:00 | disposition home or self-care (01) ==
LOC: H.ER 16:24 → H.ERHOLD 20:25 → H.MEDSURG1 22:44
PROVIDERS: ADMIT Internal Medicine; ATTEND Internal Medicine
DX: J43.9 Emphysema, unspecified (principal); Z79.82 Long term (current) use of aspirin; Z87.01 Personal history of pneumonia (recurrent); F12.10 Cannabis abuse, uncomplicated; Z79.899 Other long term (current) drug therapy; R06.03 Acute respiratory distress; F17.210 Nicotine dependence, cigarettes, uncomplicated; J20.9 Acute bronchitis, unspecified
CPT/HCPCS: 36415; 71045; 80048; 80053; 82803; 83735; 84100; 84484; 85025; 85027; 85610; 85730; 87040; 87804; 93005; 94640; 96374; 99285; G0378; J1650; J2920; J2930

== ENCOUNTER 2018-07-20 10:51 | Inpatient (IN) | payer MEDICAID ==
[2018-07-20 10:51] VITALS: BMI 20.9
--- NOTE | 2018-07-20 11:29 | ED PDOC ---
HPI: SOB/CHF/COPD Time Seen by Provider: 07/20/18 11:09 Chief Complaint (Nursing): Shortness Of Breath Chief Complaint (Provider): Shortness Of Breath History Per: Patient History/Exam Limitations: no limitations Onset/Duration Of Symptoms: Days (x4) Associated Symptoms: Sweating. denies: Fever, Chest Pain Additional Complaint(s): 62 years old male with history of COPD presents to ER for evaluation of shortness of breath associated with cough and sweating. Patient reports he had symptoms Thursday, Thursday and Thursday, felt better on Thursday and woke up today short in breath. He denies chest pain and fever. PMD: None provided Past Medical History Reviewed: Historical Data, Nursing Documentation, Vital Signs Vital Signs: Last Vital Signs Temp 97.6 F 07/20/18 11:18 Pulse 94 H 07/20/18 11:18 Resp 21 07/20/18 11:18 BP 112/78 07/20/18 11:18 Pulse Ox 96 07/20/18 11:18 Primary Care Provider: Non [facility] Provider, - Medical History PMH: Asthma, COPD, Emphysema, Pneumonia Denies: Arthritis (knees), HIV, Chronic Kidney Disease - Surgical History Surgical History: No Surg Hx - Family History Family History: States: Unknown Family Hx - Social History Current smoker - smoking cessation education provided: Yes Alcohol: None Drugs: Denies - Immunization History Hx Tetanus Toxoid Vaccination: No Hx Influenza Vaccination: Yes Hx Pneumococcal Vaccination: Yes - Home Medications Home Medications: Ambulatory Orders Medication Instructions Recorded Albuterol 0.083% [Albuterol 0.083% 2.5 mg INH RQ4 PRN neb 06/01/18 Inhal Fernanda (2.5 mg/3 ml) UD] Methylprednisolone [Medrol Dose 4 mg PO DAILY #21 mg 07/21/18 Pack (21 tabs)] Albuterol HFA [Ventolin HFA 90 2 puff IH Q4H PRN #1 inh 07/23/18 mcg/actuation (8 g)] Albuterol/Ipratropium [Duoneb 3 3 ml IH Q4 PRN #20 neb 07/23/18 MG/3 Ml-0.5 MG/3 Ml 3 Ml] Fluticasone/Salmeterol [Airduo 1 puff IH Q12 #1 aer.[email or web address] 07/23/18 Respiclick 113-14 Mcg] Methylprednisolone [Medrol Dose 4 mg PO ASDIR #21 mg 07/23/18 Pack (21 tabs)] Montelukast Sodium [Singulair] 10 mg PO HS #30 tablet 07/23/18 Tiotropium [Spiriva] 18 mcg IH DAILY #1 cap 07/23/18 levoFLOXacin [Levaquin] 750 mg PO DAILY 5 Days #5 tab 07/23/18 - Allergies Allergies/Adverse Reactions: Allergies Allergy/AdvReac Type Severity Reaction Status Date / Time No Known Allergies Allergy Verified 07/20/18 11:24 Review of Systems ROS Statement: Except As Marked, All Systems Reviewed And Found Negative Constitutional: Negative for: Fever Cardiovascular: Negative for: Chest Pain Respiratory: Positive for: Cough, Shortness of Breath Physical Exam - Reviewed Nursing Documentation Reviewed: Yes Vital Signs Reviewed: Yes - Physical Exam Appears: Positive for: No Acute Distress Head Exam: Positive for: ATRAUMATIC, NORMOCEPHALIC Skin: Positive for: Normal Color, Warm, Dry Eye Exam: Positive for: Normal appearance, EOMI, PERRL Neck: Positive for: Normal, Painless ROM, Supple Cardiovascular/Chest: Positive for: Regular Rate, Rhythm. Negative for: Murmur Respiratory: Positive for: Respiratory Distress (Mild), Other (Decreased air entry bilaterally) Gastrointestinal/Abdominal: Positive for: Normal Exam, Soft. Negative for: Tenderness Back: Positive for: Normal Inspection. Negative for: L CVA Tenderness, R CVA Tenderness Extremity: Positive for: Normal ROM. Negative for: Pedal Edema, Swelling Neurological/Psych: Positive for: Awake, Alert, Oriented (x3) - Laboratory Results Result Diagrams: 07/22/18 05:37 07/22/18 05:37 - ECG O2 Sat by Pulse Oximetry: 96 (RA) Pulse Ox Interpretation: Normal Medical Decision Making Medical Decision Making: Time: 113 Initial plan: --EKG -Urine dipstick --CBC --PTT --PT --Chest x-ray --Duoneb 3 ml INH --SOLU-Medrol 125 mg IVP --Blood culture --Urinalysis 1249 CXR FINDINGS: LUNGS: No active pulmonary disease. PLEURA: No significant pleural effusion identified, no pneumothorax apparent. CARDIOVASCULAR: No atherosclerotic calcification present Normal. OSSEOUS STRUCTURES: No significant abnormalities. VISUALIZED UPPER ABDOMEN: Normal. OTHER FINDINGS: None. IMPRESSION: No active disease. No significant interval change compared to the prior examination(s). Scribe Attestation: Documented by Lorna Esqueda acting as a scribe for Lisa Melgar MD. Provider Scribe Attestation: All medical record entries made by the Scribe were at my direction and personally dictated by me. I have reviewed the chart and agree that the record accurately reflects my personal performance of the history, physical exam, medical decision making, and the department course for this patient. I have also personally directed, reviewed, and agree with the discharge instructions and disposition. Disposition - Clinical Impression Clinical Impression: COPD exacerbation - Patient ED Disposition Is Patient to be Admitted: Yes - Disposition Disposition Time: 10:50 Condition: STABLE - Pt Status Changed To: Hospital Disposition Of: Inpatient - Admit Certification Admit to Inpatient:: After my assessment, the patient will require hospitalization for at least two midnights. This is because of the severity of symptoms shown, intensity of services needed, and/or the medical risk in this patient being treated as an outpatient. - POA Present On Arrival: None
[2018-07-20] MEDS ORDERED: Albuterol-Ipratrop 3 mg / 0.5 (3 ml) UD INH STA (11:34)
[2018-07-20] MEDS ORDERED: Albuterol-Ipratrop 3 mg / 0.5 (3 ml) UD ONE (11:43)
[2018-07-20 12:08] LABS: BASO # 0.1 K/uL (0.0-0.2); BASO % 1.3 % (0.0-2.0); EOS # 0.6 K/uL (0.0-0.7); EOS % 10.8 % (0.0-4.0); HEMOGLOBIN 14.4 g/dL (12.0-18.0); LYMPH # 0.9 K/uL (1.0-4.3); LYMPH % 15.3 % (20.0-40.0); MEAN CELL VOLUME 95.3 fl (80.0-94.0); MEAN CORPUSCULAR HEMOGLOBIN 32.1 pg (27.0-31.0); MEAN CORPUSCULAR HGB CONC 33.7 g/dL (33.0-37.0); MEAN PLATELET VOLUME 8.1 fl (7.2-11.7); MONO # 0.8 K/uL (0.0-0.8); MONO % 14.2 % (0.0-10.0); NEUT # 3.4 K/uL (1.8-7.0); NEUT % 58.4 % (50.0-75.0); NRBC % 0.1 % (0.0-0.0); RBC 4.49 Mil/uL (4.40-5.90); WHITE BLOOD COUNT 5.9 K/uL (4.8-10.8)
[2018-07-20 12:18] LABS: ALB/GLOB RATIO 1.5 (1.0-2.1); ALBUMIN 4.6 g/dL (3.5-5.0); ALT/SGPT 25 U/L (21-72); AST/SGOT 58 U/L (17-59); BLOOD UREA NITROGEN 10 mg/dl (9-20); GFR NON-AFRICAN AMERICAN > 60
[2018-07-20 12:28] LABS: INR 0.9; PROTHROMBIN TIME 10.3 Seconds (9.8-13.1)
[2018-07-20 12:31] LABS: PARTIAL THROMBOPLASTIN TIME 29.1 Seconds (25.6-37.1)
--- NOTE | 2018-07-20 12:45 | RAD ---
Date of service: 07/20/2018 HISTORY: Dyspnea, shortness of breath. COMPARISON: 06/25/2018. FINDINGS: LUNGS: No active pulmonary disease. PLEURA: No significant pleural effusion identified, no pneumothorax apparent. CARDIOVASCULAR: No atherosclerotic calcification present Normal. OSSEOUS STRUCTURES: No significant abnormalities. VISUALIZED UPPER ABDOMEN: Normal. OTHER FINDINGS: None. IMPRESSION: No active disease. No significant interval change compared to the prior examination(s).
--- NOTE | 2018-07-20 12:46 | CARD ---
APPROVED REPORT Date of service: 07/20/2018 EKG Measurement Heart [id number] [id number] <Conclusion> Normal sinus rhythm Normal ECG
--- NOTE | 2018-07-20 13:55 | CP.PCM.HP ---
<HarmanJaronJeromy - Last Filed: 07/20/18 14:12> History of Present Illness - History of Present Illness History of Present Illness: "gary been having trouble breathing since yesterday" 61 y/o male with a PMHx of COPD, heavy tobacco abuse, presented to [facility] ED for evaluation of acute SOB. Pt reports his neighbor recently used a lot of air freshener and this may have exacerbated his symptoms. . He reports the triggering event was likely the environment. He used his ventolin inhaler without improvement. He reports he has an increased cough, with scant white sputum but has not noticed an increase in total production or purulence. He denies any URI symptoms or sinus problems. No sick contacts. Denies fever/chills. Denies cardinal cardiac symptoms. No other complaints/concerns. ROS: 12 systems reviewed, negative unless mentioned as per HPI PMD: [facility] PMHx: heavy tobacco abuse, COPD, bronchitis ALL: NKDA Meds: Spirva, Advair, Ventolin PsurgHx: neck cyst excision PHospHx: multiple admissions for COPD exac FamilyHx: does not know any medical hx of family SocialHx: >10 ciggs per day for >40 years, daily ETOH abuse, denies drugs Next of Kin: Cousin, Alia (as per demographics) Code Status: full code Present on Admission - Present on Admission Any Indicators Present on Admission: No History of DVT/PE: No History of Uncontrolled Diabetes: No Urinary Catheter: No Decubitus Ulcer Present: No Past Patient History - Infectious Disease Hx of Infectious Diseases: None - Tetanus Immunizations Tetanus Immunization: Unknown - Past Medical History & Family History Past Medical History?: Yes - Past Social History Alcohol: None Drugs: Denies - CARDIAC Hx Cardiac Disorders: No - PULMONARY Hx Asthma: Yes Hx Chronic Obstructive Pulmonary Disease (COPD): Yes Hx Emphysema: Yes Hx Pneumonia: Yes - NEUROLOGICAL Hx Neurological Disorder: No - HEENT Hx HEENT Problems: No - RENAL Hx Chronic Kidney Disease: No - ENDOCRINE/METABOLIC Hx Endocrine Disorders: No - HEMATOLOGICAL/ONCOLOGICAL Hx Human Immunodeficiency Virus (HIV): No - INTEGUMENTARY Hx Dermatological Problems: No - MUSCULOSKELETAL/RHEUMATOLOGICAL Hx Arthritis: No (knees) - GASTROINTESTINAL Hx Gastrointestinal Disorders: No - PSYCHIATRIC Hx Psychophysiologic Disorder: No Hx Substance Use: No - SURGICAL HISTORY Hx Surgeries: Yes - ANESTHESIA Hx Anesthesia: Yes Hx Anesthesia Reactions: No Hx Malignant Hyperthermia: No Meds Allergies/Adverse Reactions: Allergies Allergy/AdvReac Type Severity Reaction Status Date / Time No Known Allergies Allergy Verified 07/20/18 11:24 Physical Exam - Constitutional Appears: Non-toxic, No Acute Distress, Cachectic - Head Exam Head Exam: ATRAUMATIC, NORMOCEPHALIC - Eye Exam Eye Exam: EOMI, PERRL - ENT Exam ENT Exam: Mucous Membranes Moist - Respiratory Exam Respiratory Exam: Decreased Breath Sounds, Prolonged Expiratory Phase, Wheezes. absent: Accessory Muscle Use, Chest Wall Tenderness, Rales, Rhonchi, Respiratory Distress - Cardiovascular Exam Cardiovascular Exam: REGULAR RHYTHM, RRR, +S1, +S2. absent: Tachycardia, JVD, Systolic Murmur - GI/Abdominal Exam GI & Abdominal Exam: Normal Bowel Sounds, Soft - Extremities Exam Extremities exam: Positive for: normal capillary refill, normal inspection, pedal pulses present. Negative for: pedal edema, tenderness - Neurological Exam Neurological exam: Alert, Altered, CN II-XII Intact, Normal Gait, Oriented x3, Reflexes Normal - Psychiatric Exam Psychiatric exam: Normal Affect, Normal Mood - Skin Skin Exam: Dry, Intact, Normal Color, Warm Results - Vital Signs Recent Vital Signs: Last Vital Signs Temp 97.6 F 07/20/18 11:18 Pulse 94 H 07/20/18 11:18 Resp 21 07/20/18 11:18 BP 112/78 07/20/18 11:18 Pulse Ox 96 07/20/18 12:00 - Labs Result Diagrams: 07/20/18 12:02 07/20/18 12:02 Labs: Laboratory Results - last 24 hr 07/20/18 07/20/18 07/20/18 12:02 12:02 12:02 WBC 5.9 RBC 4.49 Hgb 14.4 Hct 42.8 MCV 95.3 H MCH 32.1 H MCHC 33.7 RDW 14.0 Plt Count 271 MPV 8.1 Neut % (Auto) 58.4 Lymph % (Auto) 15.3 L Waldo % (Auto) 14.2 H Eos % (Auto) 10.8 H Baso % (Auto) 1.3 Neut # (Auto) 3.4 Lymph # (Auto) 0.9 L Waldo # (Auto) 0.8 Eos # (Auto) 0.6 Baso # (Auto) 0.1 PT 10.3 INR 0.9 APTT 29.1 Sodium 137 Potassium 4.1 Chloride 102 Carbon Dioxide 24 Anion Gap 15 BUN 10 Creatinine 0.4 L Est GFR ( Amer) > 60 Est GFR (Non-Af Amer) > 60 Random Glucose 98 Calcium 9.0 Total Bilirubin 0.8 AST 58 ALT 25 Alkaline Phosphatase 62 Total Protein 7.7 Albumin 4.6 Globulin 3.1 Albumin/Globulin Ratio 1.5 Assessment & Plan - Assessment and Plan (Free Text) Assessment: 61 y/o male with PMHx of COPD and tobacco abuse admitted for Acute COPD exacerbation. Plan: 1) Acute COPD Exacerbation -s/p 125mg Solu-medrol, Duoneb x1 in ED -c/w with Duo-Nebs Q4H, with Q6H PRN -Levofloxacin 750mg QD -IV solu-medrol 60mg BID -O2 supplement, keep POX ~92% -follow up AM labs/trend treatment 2) Diet -regular 3) Prophylaxis -Lovenox 40mg SC QD 4) Code Status -full code <Donovan Martinez D - Last Filed: 07/20/18 14:34> Results - Vital Signs Recent Vital Signs: Last Vital Signs Temp 97.6 F 07/20/18 11:18 Pulse 94 H 07/20/18 11:18 Resp 21 07/20/18 11:18 BP 112/78 07/20/18 11:18 Pulse Ox 96 07/20/18 14:06 - Labs Result Diagrams: 07/20/18 12:02 07/20/18 12:02 Labs: Laboratory Results - last 24 hr 07/20/18 07/20/18 07/20/18 12:02 12:02 12:02 WBC 5.9 RBC 4.49 Hgb 14.4 Hct 42.8 MCV 95.3 H MCH 32.1 H MCHC 33.7 RDW 14.0 Plt Count 271 MPV 8.1 Neut % (Auto) 58.4 Lymph % (Auto) 15.3 L Waldo % (Auto) 14.2 H Eos % (Auto) 10.8 H Baso % (Auto) 1.3 Neut # (Auto) 3.4 Lymph # (Auto) 0.9 L Waldo # (Auto) 0.8 Eos # (Auto) 0.6 Baso # (Auto) 0.1 PT 10.3 INR 0.9 APTT 29.1 Sodium 137 Potassium 4.1 Chloride 102 Carbon Dioxide 24 Anion Gap 15 BUN 10 Creatinine 0.4 L Est GFR ( Amer) > 60 Est GFR (Non-Af Amer) > 60 Random Glucose 98 Calcium 9.0 Total Bilirubin 0.8 AST 58 ALT 25 Alkaline Phosphatase 62 Total Protein 7.7 Albumin 4.6 Globulin 3.1 Albumin/Globulin Ratio 1.5 Attending/Attestation - Attestation I have personally seen and examined this patient.: Yes I have fully participated in the care of the patient.: Yes I have reviewed all pertinent clinical information: Yes Notes (Text): 07/20/18 14:33 Patient seen and examined with resident. Case discussed and agreed with as sessment and plan of management
[2018-07-20] MEDS ORDERED: Albuterol-Ipratrop 3 mg / 0.5 (3 ml) UD INH PRN (14:09)
[2018-07-20] MEDS ORDERED: levoFLOXacin 750 mg in D5W 150 ML BAG IVPB SCH (14:11)
[2018-07-20] MEDS ORDERED: MethylPREDNISolone 40 mg Vial IVP SCH (14:30)
[2018-07-20] MEDS: Albuterol-Ipratrop 3 mg / 0.5 (3 ml) UD INH SCH ×3 (17:33→23:08)
[2018-07-20] MEDS ORDERED: methylPREDNISolone 60 MG in Sodium Chloride 0.9% 50 ML IVPB SCH (21:00)
[2018-07-21] MEDS: Albuterol-Ipratrop 3 mg / 0.5 (3 ml) UD INH SCH ×5 (04:05→19:12)
[2018-07-21 06:23] LABS: HEMOGLOBIN 13.1 g/dL (12.0-18.0); MEAN CELL VOLUME 95.1 fl (80.0-94.0); MEAN CORPUSCULAR HEMOGLOBIN 31.7 pg (27.0-31.0); MEAN CORPUSCULAR HGB CONC 33.4 g/dL (33.0-37.0); RBC 4.14 Mil/uL (4.40-5.90); RED CELL DISTRIBUTION WIDTH 13.5 % (11.5-14.5); WHITE BLOOD COUNT 4.4 K/uL (4.8-10.8)
[2018-07-21 06:43] LABS: ALB/GLOB RATIO 1.5 (1.0-2.1); ALBUMIN 4.2 g/dL (3.5-5.0); ALT/SGPT 23 U/L (21-72); AST/SGOT 33 U/L (17-59); BLOOD UREA NITROGEN 13 mg/dl (9-20); CALCIUM 9.2 mg/dL (8.4-10.2); GFR NON-AFRICAN AMERICAN > 60
[2018-07-21 08:09] LABS: SQUAMOUS EPITHIAL < 1 /hpf (0-5); URINE BILIRUBIN NEGATIVE (NEGATIVE); URINE BLOOD NEGATIVE (NEGATIVE); URINE CLARITY SLIGHTY-CLOUDY (Clear); URINE COLOR YELLOW (YELLOW); URINE GLUCOSE (UA) 50 mg/dL (NEGATIVE); URINE LEUKOCYTE ESTERASE NEG Leu/uL (Negative); URINE PROTEIN 30 mg/dL (NEGATIVE); URINE UROBILINOGEN 0.2-1.0 mg/dL (0.2-1.0)
[2018-07-21] MEDS: Enoxaparin 40 mg Syringe SC SCH (09:38)
--- NOTE | 2018-07-21 09:59 | PQF ---
PROVIDER RESPONSE TEXT: Chronic bronchitis REVIEWER QUERY TEXT: Bronchitis Specificity PMH of Bronchitis is documented in the medical record under the PMH. Please specify if this is a cur rent Chronic Bronchitis or not. -- Other (please specify in the medical record) -- Clinically unable to determine -- Unknown The patient's Clinical Indicators include: Admitted with SOB. DX: COPD exacerbation PMH: of Bronchitis, COPD, Emphysema CXR: No active disease RX: Solumedrol, Zahira Winkler Query created by: Dasha Michel on 07/21/2018 8:56 AM Electronically signed by: Jeromy Hammer 07/21/2018 9:56 AM
--- NOTE | 2018-07-21 09:59 | CP.PCM.DIS ---
<Jeromy Hammer - Last Filed: 07/21/18 10:14> Provider - Provider Date of Admission: 07/20/18 13:44 Attending physician: Donovan Martinez MD Time Spent in preparation of Discharge (in minutes): 35 Diagnosis - Discharge Diagnosis (1) COPD exacerbation Status: Acute Hospital Course - Lab Results Lab Results: Most Recent Lab Values WBC 4.4 K/uL (4.8-10.8) L 07/21/18 05:40 RBC 4.14 Mil/uL (4.40-5.90) L 07/21/18 05:40 Hgb 13.1 g/dL (12.0-18.0) 07/21/18 05:40 Hct 39.4 % (35.0-51.0) 07/21/18 05:40 MCV 95.1 fl (80.0-94.0) H 07/21/18 05:40 MCH 31.7 pg (27.0-31.0) H 07/21/18 05:40 MCHC 33.4 g/dL (33.0-37.0) 07/21/18 05:40 RDW 13.5 % (11.5-14.5) 07/21/18 05:40 Plt Count 240 K/uL (130-400) 07/21/18 05:40 MPV 8.1 fl (7.2-11.7) 07/20/18 12:02 Neut % (Auto) 58.4 % (50.0-75.0) 07/20/18 12:02 Lymph % (Auto) 15.3 % (20.0-40.0) L 07/20/18 12:02 Franklin % (Auto) 14.2 % (0.0-10.0) H 07/20/18 12:02 Eos % (Auto) 10.8 % (0.0-4.0) H 07/20/18 12:02 Baso % (Auto) 1.3 % (0.0-2.0) 07/20/18 12:02 Neut # (Auto) 3.4 K/uL (1.8-7.0) 07/20/18 12:02 Lymph # (Auto) 0.9 K/uL (1.0-4.3) L 07/20/18 12:02 Franklin # (Auto) 0.8 K/uL (0.0-0.8) 07/20/18 12:02 Eos # (Auto) 0.6 K/uL (0.0-0.7) 07/20/18 12:02 Baso # (Auto) 0.1 K/uL (0.0-0.2) 07/20/18 12:02 PT 10.3 Seconds (9.8-13.1) 07/20/18 12:02 INR 0.9 07/20/18 12:02 APTT 29.1 Seconds (25.6-37.1) 07/20/18 12:02 Sodium 134 mmol/l (132-148) 07/21/18 05:40 Potassium 4.4 MMOL/L (3.6-5.0) 07/21/18 05:40 Chloride 98 mmol/L (98-107) 07/21/18 05:40 Carbon Dioxide 27 mmol/L (22-30) 07/21/18 05:40 Anion Gap 13 (10-20) 07/21/18 05:40 BUN 13 mg/dl (9-20) 07/21/18 05:40 Creatinine 0.5 mg/dl (0.8-1.5) L 07/21/18 05:40 Est GFR ( Amer) > 60 07/21/18 05:40 Est GFR (Non-Af Amer) > 60 07/21/18 05:40 Random Glucose 138 mg/dL (75-110) H 07/21/18 05:40 Calcium 9.2 mg/dL (8.4-10.2) 07/21/18 05:40 Total Bilirubin 0.9 mg/dl (0.2-1.3) 07/21/18 05:40 AST 33 U/L (17-59) 07/21/18 05:40 ALT 23 U/L (21-72) 07/21/18 05:40 Alkaline Phosphatase 51 U/L (38-126) 07/21/18 05:40 Total Protein 7.0 G/DL (6.3-8.2) 07/21/18 05:40 Albumin 4.2 g/dL (3.5-5.0) 07/21/18 05:40 Globulin 2.8 gm/dL (2.2-3.9) 07/21/18 05:40 Albumin/Globulin Ratio 1.5 (1.0-2.1) 07/21/18 05:40 Urine Color Yellow (YELLOW) 07/20/18 19:30 Urine Clarity Slighty-cloudy (Clear) 07/20/18 19:30 Urine pH 7.0 (5.0-8.0) 07/20/18 19:30 Ur Specific [place] 1.023 (1.003-1.030) 07/20/18 19:30 Urine Protein 30 mg/dL (NEGATIVE) 07/20/18 19:30 Urine Glucose (UA) 50 mg/dL (NEGATIVE) 07/20/18 19:30 Urine Ketones Trace mg/dL (NEGATIVE) 07/20/18 19:30 Urine Blood Negative (NEGATIVE) 07/20/18 19:30 Urine Nitrate Negative (NEGATIVE) 07/20/18 19:30 Urine Bilirubin Negative (NEGATIVE) 07/20/18 19:30 Urine Urobilinogen 0.2-1.0 mg/dL (0.2-1.0) 07/20/18 19:30 Ur Leukocyte Esterase Neg Leonidas/uL (Negative) 07/20/18 19:30 Urine RBC (Auto) 3 /hpf (0-3) 07/20/18 19:30 Urine Microscopic WBC 1 /hpf (0-5) 07/20/18 19:30 Ur Squamous Epith Cells < 1 /hpf (0-5) 07/20/18 19:30 - Hospital Course Hospital Course: 61 y/o male with PMHx of COPD and tobacco abuse admitted for Acute COPD exacerbation. Pt was admitted and treated with duo-nebs and iv steroids. Pt improved and had an uneventful stay. He was discharged in stable condition with continuation of his current home medications as well as Medrol-dose pack for the next 21 days. Plan: 1) Acute COPD Exacerbation -s/p 125mg Solu-medrol, Duoneb x1 in ED -c/w with Duo-Nebs Q4H, with Q6H PRN -IV solu-medrol 60mg BID Discharge Exam - Head Exam Head Exam: ATRAUMATIC, NORMOCEPHALIC - Eye Exam Eye Exam: EOMI, Normal appearance, PERRL - ENT Exam ENT Exam: Mucous Membranes Moist - Respiratory Exam Respiratory Exam: Clear to PA & Lateral, NORMAL BREATHING PATTERN, UNREMARKABLE. absent: Decreased Breath Sounds, Rales, Rhonchi, Wheezes, Respiratory Distress - Cardiovascular Exam Cardiovascular Exam: REGULAR RHYTHM, RRR, +S1, +S2. absent: Tachycardia, Diastolic murmur, JVD, Rubs, Systolic Murmur - GI/Abdominal Exam GI & Abdominal Exam: Normal Bowel Sounds, Soft, Unremarkable - Extremities Exam Extremities exam: normal capillary refill, normal inspection, pedal pulses present - Neurological Exam Neurological exam: Alert, CN II-XII Intact, Normal Gait, Oriented x3 - Psychiatric Exam Psychiatric exam: Normal Affect, Normal Mood - Skin Skin Exam: Dry, Intact Discharge Plan - Discharge Medications Prescriptions: Methylprednisolone [Medrol Dose Pack (21 tabs)] 4 mg PO DAILY #21 mg - Follow Up Plan Condition: STABLE Disposition: HOME/ ROUTINE Instructions: Exacerbation of COPD (DC) Additional Instructions: follow up appointment at [facility] on 07/26/18 take albuterol inhaler every four hours and medications as prescribed continue with your current medications as prescribed if symptoms worsen or are uncontrolled return to the ED Referrals: [facility] [Outside] <Donovan Martinez - Last Filed: 07/21/18 11:16> Provider - Provider Date of Admission: 07/20/18 13:44 Attending physician: Donovan Martinez MD Hospital Course - Lab Results Lab Results: Most Recent Lab Values WBC 4.4 K/uL (4.8-10.8) L 07/21/18 05:40 RBC 4.14 Mil/uL (4.40-5.90) L 07/21/18 05:40 Hgb 13.1 g/dL (12.0-18.0) 07/21/18 05:40 Hct 39.4 % (35.0-51.0) 07/21/18 05:40 MCV 95.1 fl (80.0-94.0) H 07/21/18 05:40 MCH 31.7 pg (27.0-31.0) H 07/21/18 05:40 MCHC 33.4 g/dL (33.0-37.0) 07/21/18 05:40 RDW 13.5 % (11.5-14.5) 07/21/18 05:40 Plt Count 240 K/uL (130-400) 07/21/18 05:40 MPV 8.1 fl (7.2-11.7) 07/20/18 12:02 Neut % (Auto) 58.4 % (50.0-75.0) 07/20/18 12:02 Lymph % (Auto) 15.3 % (20.0-40.0) L 07/20/18 12:02 Franklin % (Auto) 14.2 % (0.0-10.0) H 07/20/18 12:02 Eos % (Auto) 10.8 % (0.0-4.0) H 07/20/18 12:02 Baso % (Auto) 1.3 % (0.0-2.0) 07/20/18 12:02 Neut # (Auto) 3.4 K/uL (1.8-7.0) 07/20/18 12:02 Lymph # (Auto) 0.9 K/uL (1.0-4.3) L 07/20/18 12:02 Franklin # (Auto) 0.8 K/uL (0.0-0.8) 07/20/18 12:02 Eos # (Auto) 0.6 K/uL (0.0-0.7) 07/20/18 12:02 Baso # (Auto) 0.1 K/uL (0.0-0.2) 07/20/18 12:02 PT 10.3 Seconds (9.8-13.1) 07/20/18 12:02 INR 0.9 07/20/18 12:02 APTT 29.1 Seconds (25.6-37.1) 07/20/18 12:02 Sodium 134 mmol/l (132-148) 07/21/18 05:40 Potassium 4.4 MMOL/L (3.6-5.0) 07/21/18 05:40 Chloride 98 mmol/L (98-107) 07/21/18 05:40 Carbon Dioxide 27 mmol/L (22-30) 07/21/18 05:40 Anion Gap 13 (10-20) 07/21/18 05:40 BUN 13 mg/dl (9-20) 07/21/18 05:40 Creatinine 0.5 mg/dl (0.8-1.5) L 07/21/18 05:40 Est GFR ( Amer) > 60 07/21/18 05:40 Est GFR (Non-Af Amer) > 60 07/21/18 05:40 Random Glucose 138 mg/dL (75-110) H 07/21/18 05:40 Calcium 9.2 mg/dL (8.4-10.2) 07/21/18 05:40 Total Bilirubin 0.9 mg/dl (0.2-1.3) 07/21/18 05:40 AST 33 U/L (17-59) 07/21/18 05:40 ALT 23 U/L (21-72) 07/21/18 05:40 Alkaline Phosphatase 51 U/L (38-126) 07/21/18 05:40 Total Protein 7.0 G/DL (6.3-8.2) 07/21/18 05:40 Albumin 4.2 g/dL (3.5-5.0) 07/21/18 05:40 Globulin 2.8 gm/dL (2.2-3.9) 07/21/18 05:40 Albumin/Globulin Ratio 1.5 (1.0-2.1) 07/21/18 05:40 Urine Color Yellow (YELLOW) 07/20/18 19:30 Urine Clarity Slighty-cloudy (Clear) 07/20/18 19:30 Urine pH 7.0 (5.0-8.0) 07/20/18 19:30 Ur Specific [place] 1.023 (1.003-1.030) 07/20/18 19:30 Urine Protein 30 mg/dL (NEGATIVE) 07/20/18 19:30 Urine Glucose (UA) 50 mg/dL (NEGATIVE) 07/20/18 19:30 Urine Ketones Trace mg/dL (NEGATIVE) 07/20/18 19:30 Urine Blood Negative (NEGATIVE) 07/20/18 19:30 Urine Nitrate Negative (NEGATIVE) 07/20/18 19:30 Urine Bilirubin Negative (NEGATIVE) 07/20/18 19:30 Urine Urobilinogen 0.2-1.0 mg/dL (0.2-1.0) 07/20/18 19:30 Ur Leukocyte Esterase Neg Leonidas/uL (Negative) 07/20/18 19:30 Urine RBC (Auto) 3 /hpf (0-3) 07/20/18 19:30 Urine Microscopic WBC 1 /hpf (0-5) 07/20/18 19:30 Ur Squamous Epith Cells < 1 /hpf (0-5) 07/20/18 19:30 Attending/Attestation - Attestation I have personally seen and examined this patient.: Yes I have fully participated in the care of the patient.: Yes I have reviewed all pertinent clinical information, including history, physical exam and plan: Yes Notes (Text): 07/21/18 11:15 Patient seen and examined with resident. Case discussed and agreed with assessment. Patient discharged in stable condition.
[2018-07-21] MEDS: levoFLOXacin 750 mg in D5W 750 MG/150 ML BAG IVPB SCH (10:17)
[2018-07-22] MEDS: Albuterol-Ipratrop 3 mg / 0.5 (3 ml) UD INH SCH ×7 (00:09→23:32)
[2018-07-22 05:43] LABS: HEMOGLOBIN 12.8 g/dL (12.0-18.0); MEAN CELL VOLUME 95.6 fl (80.0-94.0); MEAN CORPUSCULAR HEMOGLOBIN 31.7 pg (27.0-31.0); MEAN CORPUSCULAR HGB CONC 33.2 g/dL (33.0-37.0); RBC 4.02 Mil/uL (4.40-5.90); RED CELL DISTRIBUTION WIDTH 13.9 % (11.5-14.5); WHITE BLOOD COUNT 5.9 K/uL (4.8-10.8)
[2018-07-22 06:04] LABS: ALB/GLOB RATIO 1.5 (1.0-2.1); ALBUMIN 3.9 g/dL (3.5-5.0); ALT/SGPT 26 U/L (21-72); AST/SGOT 28 U/L (17-59); BLOOD UREA NITROGEN 13 mg/dl (9-20); CALCIUM 8.8 mg/dL (8.4-10.2); GFR NON-AFRICAN AMERICAN > 60
[2018-07-22] MEDS: levoFLOXacin 750 mg in D5W 750 MG/150 ML BAG IVPB SCH (08:29)
[2018-07-22] MEDS: Enoxaparin 40 mg Syringe SC SCH (08:30)
--- NOTE | 2018-07-22 12:10 | CP.PCM.PN ---
<Jeromy Hammer - Last Filed: 07/22/18 12:11> Subjective - Date & Time of Evaluation Date of Evaluation: 07/22/18 Time of Evaluation: 12:08 - Subjective Subjective: pt seen and evaluated at bedside this morning. No acute events overnight. Tolerating treatments without issue. OOB/ambulating, denies SOB. Afebrile and tolerating PO intake. Objective - Vital Signs/Intake and Output Vital Signs (last 24 hours): Temp Pulse Resp BP Pulse Ox 97.3 F L 104 H 20 105/70 98 07/22/18 08:10 07/22/18 08:10 07/22/18 08:10 07/22/18 08:10 07/22/18 08:10 - Medications Medications: Current Medications Albuterol/Ipratropium (Duoneb 3 Mg/0.5 Mg (3 Ml) Ud) 3 ml INH RQ4 KARTHIKEYAN Last Admin: 07/22/18 11:32 Dose: 3 ml Albuterol/Ipratropium (Duoneb 3 Mg/0.5 Mg (3 Ml) Ud) 3 ml INH RQ6 PRN PRN Reason: Shortness of Breath Enoxaparin Sodium (Lovenox) 40 mg SC DAILY KARTHIKEYAN; Protocol Last Admin: 07/22/18 08:30 Dose: 40 mg Levofloxacin/Dextrose (Levaquin 750mg) 750 mg in 150 mls @ 75 mls/hr IVPB DAILY KARTHIKEYAN Last Admin: 07/22/18 08:29 Dose: 75 mls/hr Vancomycin HCl 1 gm/ Sodium (Chloride) 250 mls @ 166.667 mls/hr IVPB Q12 KARTHIKEYAN; Protocol Last Admin: 07/22/18 10:12 Dose: 166.667 mls/hr Methylprednisolone (Solu-Medrol) 60 mg IVP Q12 KARTHIKEYAN Last Admin: 07/22/18 08:30 Dose: 60 mg - Labs Labs: 07/22/18 05:37 07/22/18 05:37 PT 10.3 Seconds (9.8-13.1) 07/20/18 12:02 INR 0.9 07/20/18 12:02 APTT 29.1 Seconds (25.6-37.1) 07/20/18 12:02 - Constitutional Appears: Non-toxic, No Acute Distress - Head Exam Head Exam: ATRAUMATIC, NORMOCEPHALIC - Eye Exam Eye Exam: EOMI Pupil Exam: PERRL - ENT Exam ENT Exam: Mucous Membranes Moist - Respiratory Exam Respiratory Exam: Clear to Ausculation Bilateral, Wheezes (b/l wheezing in both lung parekh ), NORMAL BREATHING PATTERN - Cardiovascular Exam Cardiovascular Exam: REGULAR RHYTHM, RRR, +S1, +S2. absent: JVD, Rubs, Murmur - Neurological Exam Neurological Exam: Alert, Awake, CN II-XII Intact, Oriented x3 - Psychiatric Exam Psychiatric exam: Normal Affect, Normal Mood - Skin Skin Exam: Dry, Intact, Normal Color Assessment and Plan - Assessment and Plan (Free Text) Assessment: 61 y/o male with PMHx of COPD and tobacco abuse admitted for Acute COPD exacerbation found to have Gram + blood cultures. Plan: 1) Acute COPD Exacerbation -s/p 125mg Solu-medrol, Duoneb x1 in ED -c/w with Duo-Nebs Q4H, with Q6H PRN -Levofloxacin 750mg QD -IV solu-medrol 60mg BID -O2 supplement, keep POX ~92% -follow up AM labs/trend treatment 2) Positive Blood Cultures -started on Levofloxacin/Vancomycin -ID consult pending -repeat blood cultures drawn prior to abx initiation, pending results 3) Diet -regular 4) Prophylaxis -Lovenox 40mg SC QD 5) Code Status -full code <Diana Tyson - Last Filed: 07/22/18 16:02> Objective - Vital Signs/Intake and Output Vital Signs (last 24 hours): Temp Pulse Resp BP Pulse Ox 97.3 F L 104 H 20 105/70 98 07/22/18 08:10 07/22/18 08:10 07/22/18 08:10 07/22/18 08:10 07/22/18 08:10 - Medications Medications: Current Medications Albuterol/Ipratropium (Duoneb 3 Mg/0.5 Mg (3 Ml) Ud) 3 ml INH RQ4 KARTHIKEYAN Last Admin: 07/22/18 15:35 Dose: 3 ml Albuterol/Ipratropium (Duoneb 3 Mg/0.5 Mg (3 Ml) Ud) 3 ml INH RQ6 PRN PRN Reason: Shortness of Breath Enoxaparin Sodium (Lovenox) 40 mg SC DAILY [facility]; Protocol Last Admin: 07/22/18 08:30 Dose: 40 mg Levofloxacin/Dextrose (Levaquin 750mg) 750 mg in 150 mls @ 75 mls/hr IVPB DAILY KARTHIKEYAN Last Admin: 07/22/18 08:29 Dose: 75 mls/hr Vancomycin HCl 1 gm/ Sodium (Chloride) 250 mls @ 166.667 mls/hr IVPB Q12 KARTHIKEYAN; Protocol Last Admin: 07/22/18 10:12 Dose: 166.667 mls/hr Methylprednisolone (Solu-Medrol) 60 mg IVP Q12 KARTHIKEYAN Last Admin: 07/22/18 08:30 Dose: 60 mg - Labs Labs: 07/22/18 05:37 07/22/18 05:37 PT 10.3 Seconds (9.8-13.1) 07/20/18 12:02 INR 0.9 07/20/18 12:02 APTT 29.1 Seconds (25.6-37.1) 07/20/18 12:02 Attending/Attestation - Attestation I have personally seen and examined this patient.: Yes I have fully participated in the care of the patient.: Yes I have reviewed all pertinent clinical information, including history, physical exam and plan: Yes Notes (Text): COPD exacerbation Acute Bronchitis + Blood culture- Bacteremia vs Contaminant - taper IV Solumedrol to 40 mg q 12, cont RTC Duoneb -cont IV Levaquin - cont IV Vanco - 1 out of 2 Blood c/s + for Gram + Cocci ( rpt blood c/s done before starting IV Vanco negative so far ) -ID consulted -Lovenox for DVT proph
--- NOTE | 2018-07-22 16:57 | CP.PCM.CON ---
History of Present Illness - History of Present Illness History of Present Illness: 62 years old male with history of COPD presents to ER for evaluation of shortness of breath associated with cough and sweating. Blood c/s done in ER positive for cocci in 1/2 sets denies fever or chills at present SH smoker + ETOH no IVDU PMH COPD NKDA FH N/C. Review of Systems - Review of Systems All systems: reviewed and no additional remarkable complaints except - Constitutional Constitutional: absent: As Per HPI, Anorexia, Chills, Daytime Sleepiness, Excessive Sweating, Fatigue, Fever, Frequent Falls, Headache, Increased Appetite, Lethargy, Malaise, Night Sweats, Snoring, Sleep Apnea, Weight Gain, Weight Loss, Weakness, Other - EENT Eyes: absent: As Per HPI, Blind Spots, Blurred Vision, Change in Vision, Decreased Night Vision, Diplopia, Discharge, Dry Eye, Exophthalmos, Floaters, Irritation, Itchy Eyes, Loss of Peripheral Vision, Pain, Photophobia, Requires Corrective Lenses, Sees Flashes, Spots in Vision, Tunnel Vision, Other Visual Disturbances, Loss of Vision, Other Ears: absent: As Per HPI, Decreased Hearing, Ear Discharge, Ear Pain, Tinnitus, Abnormal Hearing, Disequilibrium, Dizziness, Other Nose/Mouth/Throat: absent: As Per HPI, Epistaxis, Nasal Congestion, Nasal Discharge, Nasal Obstruction, Nasal Trauma, Nose Pain, Post Nasal Drip, Sinus Pain, Sinus Pressure, Bleeding Gums, Change in Voice, Dental Pain, Dry Mouth, Dysphagia, Halitosis, Hoarsness, Lip Swelling, Mouth Lesions, Mouth Pain, Odynophagia, Sore Throat, Throat Swelling, Tongue Swelling, Facial Pain, Neck Pain, Neck Mass, Other - Cardiovascular Cardiovascular: absent: As Per HPI, Acrocyanosis, Chest Pain, Chest Pain at Rest, Chest Pain with Activity, Claudication, Diaphoresis, Dyspnea, Dyspnea on Exertion, Edema, Irregular Heart Rhythm, Pain Radiating to Arm/Neck/Jaw, Leg Edema, Leg Ulcers, Lightheadedness, Orthopnea, Palpitations, Paroxysmal Nocturnal Dyspnea, Pedal Edema, Radiating Pain, Rapid Heart Rate, Slow Heart Rate, Syncope, Other - Respiratory Respiratory: As Per HPI, Cough, Dyspnea. absent: Hemoptysis - Gastrointestinal Gastrointestinal: absent: As Per HPI, Abdominal Pain, Belching, Bloating, Change in Bowel Habits, Change in Stool Character, Coffee Ground Emesis, Constipation, Cramping, Diarrhea, Dyspepsia, Dysphagia, Early Satiety, Excessive Flatus, Fecal Incontinence, Heartburn, Hematemesis, Hematochezia, Loose Stools, Melena, Nausea, Odynophagia, Temesmus, Vomiting, Other - Genitourinary Genitourinary: absent: As Per HPI, Change in Urinary Stream, Difficulty Urinating, Dysuria, Flank Pain, Hematuria, Pyuria, Nocturia, Urinary Incontinence, Urinary Frequency, Urinary Hesitance, Urinary Urgency, Voiding Freq/Small Amts, Freq UTI, Hx Renal/Bladder Calculi, Hx /Renal Surgery, Bladder Distension, Other - Musculoskeletal Musculoskeletal: absent: As Per HPI, Abnormal Gait, Arthralgias, Atrophy, Back Pain, Deformity, Joint Swelling, Limited Range of Motion, Loss of Height, Muscle Cramps, Muscle Weakness, Myalgias, Neck Pain, Numbness, Radiating Pain into Limb, Stiffness, Tingling, Other - Integumentary Integumentary: absent: As Per HPI, Acne, Alopecia, Bleeding Lesions, Change in Hair, Change in Nails, Change in Pigmentation, Changing Lesions, Dry Skin, Eryth meliton, Furuncle, Hirsutism, Lesions, New Lesions, Non-Healing Lesions, Photosensitivity, Pruritus, Rash, Skin Pain, Skin Ulcer, Sores, Striae, Swelling, Unusual Bruising, Wounds, Jaundice, Other - Neurological Neurological: absent: As Per HPI, Abnormal Gait, Abnormal Hearing, Abnormal Movements, Abnormal Speech, Behavioral Changes, Burning Sensations, Confusion, Convulsions, Disequilibrium, Dizziness, Numbness, Focal Weakness, Frequent Falls, Headaches, Lack of Coordination, Loss of Vision, Memory Loss, Paresthesias, Radicular Pain, Restless Legs, Sensory Deficit, Syncope, Tingling, Tremor, Vertigo, Weakness, Other Visual Disturbances, Other - Psychiatric Psychiatric: absent: As Per HPI, Abnormal Sleep Pattern, Anhedonia, Anxiety, Auditory Hallucinations, Behavioral Changes, Change in Appetite, Change in Libido, Confusion, Depression, Difficulty Concentrating, Hallucinations, Homicidal Ideation, Hopelessness, Irritability, Memory Loss, Mood Swings, Panic Attacks, Paranoia, Suicidal Ideation, Visual Hallucinations, Tactile Hallucinations, Other - Endocrine Endocrine: absent: As Per HPI, Change in Body Appearance, Change in Libido, Cold Intolorance, Deepening of Voice, Excessive Sweating, Fatigue, Flushing, Heat Intolorance, Increase in Ring/Shoe/Hat Size, Palpitations, Polydipsia, Polyphagia, Polyuria, Other - Hematologic/Lymphatic Hematologic: absent: As Per HPI, Easy Bleeding, Easy Bruising, Lymphadenopathy, Other Past Patient History - Infectious Disease Hx of Infectious Diseases: None - Tetanus Immunizations Tetanus Immunization: Unknown - Past Medical History & Family History Past Medical History?: Yes - Past Social History Smoking Status: Light Smoker < 10 Cigarettes Daily - CARDIAC Hx Cardiac Disorders: No - PULMONARY Hx Respiratory Disorders: Yes (COPD,BRONCHITIS) - NEUROLOGICAL Hx Neurological Disorder: No - HEENT Hx HEENT Problems: No - RENAL Hx Chronic Kidney Disease: No - ENDOCRINE/METABOLIC Hx Endocrine Disorders: No - HEMATOLOGICAL/ONCOLOGICAL Hx Human Immunodeficiency Virus (HIV): No - INTEGUMENTARY Hx Dermatological Problems: No - MUSCULOSKELETAL/RHEUMATOLOGICAL Hx Arthritis: No (knees) Hx Falls: No - GASTROINTESTINAL Hx Gastrointestinal Disorders: No - PSYCHIATRIC Hx Psychophysiologic Disorder: No Hx Substance Use: No - SURGICAL HISTORY Hx Surgeries: Yes Other/Comment: cyst removal - ANESTHESIA Hx Anesthesia: Yes Hx Anesthesia Reactions: No Hx Malignant Hyperthermia: No Meds Home Medications: Home Medication List Medication Instructions Recorded Confirmed Type Methylprednisolone [Medrol Dose 4 mg PO DAILY #21 mg 07/21/18 Rx Pack (21 tabs)] Allergies/Adverse Reactions: Allergies Allergy/AdvReac Type Severity Reaction Status Date / Time No Known Allergies Allergy Verified 07/20/18 11:24 - Medications Medications: Current Medications Albuterol/Ipratropium (Duoneb 3 Mg/0.5 Mg (3 Ml) Ud) 3 ml INH RQ4 [facility] Last Admin: 07/22/18 15:35 Dose: 3 ml Albuterol/Ipratropium (Duoneb 3 Mg/0.5 Mg (3 Ml) Ud) 3 ml INH RQ6 PRN PRN Reason: Shortness of Breath Enoxaparin Sodium (Lovenox) 40 mg SC DAILY [facility]; Protocol Last Admin: 07/22/18 08:30 Dose: 40 mg Levofloxacin/Dextrose (Levaquin 750mg) 750 mg in 150 mls @ 75 mls/hr IVPB DAILY [facility] Last Admin: 07/22/18 08:29 Dose: 75 mls/hr Vancomycin HCl 1 gm/ Sodium (Chloride) 250 mls @ 166.667 mls/hr IVPB Q12 [facility]; Protocol Last Admin: 07/22/18 10:12 Dose: 166.667 mls/hr Methylprednisolone (Solu-Medrol) 40 mg IVP Q12 [facility] Physical Exam - Constitutional Appears: Non-toxic, Cachectic, Chronically Ill - Head Exam Head Exam: ATRAUMATIC, NORMAL INSPECTION, NORMOCEPHALIC - Eye Exam Eye Exam: EOMI, Normal appearance, PERRL. absent: Scleral icterus Pupil Exam: NORMAL ACCOMODATION, PERRL - ENT Exam ENT Exam: Mucous Membranes Moist, Normal Exam - Neck Exam Neck exam: Positive for: Normal Inspection - Respiratory Exam Respiratory Exam: Decreased Breath Sounds, Clear to Auscultation Bilateral, Pr olonged Expiratory Phase - Cardiovascular Exam Cardiovascular Exam: REGULAR RHYTHM, +S1, +S2 - GI/Abdominal Exam GI & Abdominal Exam: Diminished Bowel Sounds, Distended, Soft. absent: Tenderness - Rectal Exam Rectal Exam: NORMAL INSPECTION - Exam Exam: Circumcision, NORMAL INSPECTION External exam: NORMAL EXTERNAL EXAM Speculum exam: NORMAL SPECULUM EXAM Bimanual exam: NORMAL BIMANUAL EXAM - Extremities Exam Extremities exam: Positive for: normal inspection - Back Exam Back exam: NORMAL INSPECTION - Neurological Exam Neurological exam: Alert, CN II-XII Intact, Normal Gait, Oriented x3, Reflexes Normal - Psychiatric Exam Psychiatric exam: Normal Affect, Normal Mood - Skin Skin Exam: Dry, Intact, Normal Color, Warm Results - Vital Signs Recent Vital Signs: Last Vital Signs Temp 97.5 F L 07/22/18 16:34 Pulse 79 07/22/18 16:34 Resp 18 07/22/18 16:34 BP 103/79 07/22/18 16:34 Pulse Ox 98 07/22/18 16:34 - Labs Result Diagrams: 07/22/18 05:37 07/22/18 05:37 Labs: Laboratory Results - last 24 hr 07/21/18 07/22/18 07/22/18 14:30 05:37 05:37 WBC 5.9 RBC 4.02 L Hgb 12.8 Hct 38.4 MCV 95.6 H MCH 31.7 H MCHC 33.2 RDW 13.9 Plt Count 221 Sodium 134 Potassium 3.8 Chloride 102 Carbon Dioxide 25 Anion Gap 11 BUN 13 Creatinine 0.4 L Est GFR ( Amer) > 60 Est GFR (Non-Af Amer) > 60 Random Glucose 144 H Calcium 8.8 Total Bilirubin 0.7 AST 28 ALT 26 Alkaline Phosphatase 45 Total Protein 6.6 Albumin 3.9 Globulin 2.7 Albumin/Globulin Ratio 1.5 Procalcitonin < 0.05 L Assessment & Plan (1) COPD exacerbation Status: Acute - Assessment and Plan (Free Text) Assessment: acute exac COPD blood culture likely a contaminant await repeat cultures d/c on PO antibiotics / bronchodilators in am follow up with PMD smoking cessation
[2018-07-22] MEDS: MethylPREDNISolone 40 mg Vial IVP SCH (20:13)
[2018-07-22] MEDS ORDERED: Alum-Mag Hydrox-Simethicone Susp (30 mL) PO ONE (23:36)
[2018-07-23 00:52] VITALS: TEMP 97.8
[2018-07-23] MEDS: Albuterol-Ipratrop 3 mg / 0.5 (3 ml) UD INH SCH ×3 (04:50→11:15)
[2018-07-23 07:56] VITALS: BP 105/68; PULSE 86; RESP 20
[2018-07-23] MEDS: levoFLOXacin 750 mg in D5W 750 MG/150 ML BAG IVPB SCH (09:33)
[2018-07-23] MEDS: MethylPREDNISolone 40 mg Vial IVP SCH (09:33)
[2018-07-23] MEDS: Enoxaparin 40 mg Syringe SC SCH (09:33)
--- NOTE | 2018-07-23 11:11 | CP.PCM.DIS ---
<Sofiya Fernández - Last Filed: 07/23/18 12:41> Provider - Provider Date of Admission: 07/22/18 15:15 Attending physician: Donovan Martinez MD Consults: 07/21/18 12:52 Infectious Disease Consult Routine Comment: Consulting Provider: Carroll Giang Consulting Physician: Carroll Giang Reason for Consult: gram + cocci in blood, probably contaminant Time Spent in preparation of Discharge (in minutes): 35 Diagnosis - Discharge Diagnosis (1) COPD exacerbation Status: Acute Comment: improved with antibiotics and iv streroids. c/w po antibiotics for 5 more days. medrol dose pack. rx for home medications sent to pharmacy as well. Hospital Course - Lab Results Lab Results: Micro Results 07/20/18 11:35 Blood-Venous S.aureus & Coag-Neg Staph PNA FISH - Final 07/20/18 11:35 Blood-Venous Blood Culture - Final Coagulase Neg Staphylococcus 07/20/18 11:35 Blood-Venous Gram Stain - Final 07/21/18 14:40 Blood-Venous Blood Culture - Preliminary NO GROWTH AFTER 24 HOURS 07/21/18 14:30 Blood-Venous Blood Culture - Preliminary NO GROWTH AFTER 24 HOURS 07/20/18 12:00 Blood-Venous Blood Culture - Preliminary NO GROWTH AFTER 48 HOURS Most Recent Lab Values WBC 5.9 K/uL (4.8-10.8) 07/22/18 05:37 RBC 4.02 Mil/uL (4.40-5.90) L 07/22/18 05:37 Hgb 12.8 g/dL (12.0-18.0) 07/22/18 05:37 Hct 38.4 % (35.0-51.0) 07/22/18 05:37 MCV 95.6 fl (80.0-94.0) H 07/22/18 05:37 MCH 31.7 pg (27.0-31.0) H 07/22/18 05:37 MCHC 33.2 g/dL (33.0-37.0) 07/22/18 05:37 RDW 13.9 % (11.5-14.5) 07/22/18 05:37 Plt Count 221 K/uL (130-400) 07/22/18 05:37 MPV 8.1 fl (7.2-11.7) 07/20/18 12:02 Neut % (Auto) 58.4 % (50.0-75.0) 07/20/18 12:02 Lymph % (Auto) 15.3 % (20.0-40.0) L 07/20/18 12:02 Dooly % (Auto) 14.2 % (0.0-10.0) H 07/20/18 12:02 Eos % (Auto) 10.8 % (0.0-4.0) H 07/20/18 12:02 Baso % (Auto) 1.3 % (0.0-2.0) 07/20/18 12:02 Neut # (Auto) 3.4 K/uL (1.8-7.0) 07/20/18 12:02 Lymph # (Auto) 0.9 K/uL (1.0-4.3) L 07/20/18 12:02 D[place]y # (Auto) 0.8 K/uL (0.0-0.8) 07/20/18 12:02 Eos # (Auto) 0.6 K/uL (0.0-0.7) 07/20/18 12:02 Baso # (Auto) 0.1 K/uL (0.0-0.2) 07/20/18 12:02 PT 10.3 Seconds (9.8-13.1) 07/20/18 12:02 INR 0.9 07/20/18 12:02 APTT 29.1 Seconds (25.6-37.1) 07/20/18 12:02 Sodium 134 mmol/l (132-148) 07/22/18 05:37 Potassium 3.8 MMOL/L (3.6-5.0) 07/22/18 05:37 Chloride 102 mmol/L (98-107) 07/22/18 05:37 Carbon Dioxide 25 mmol/L (22-30) 07/22/18 05:37 Anion Gap 11 (10-20) 07/22/18 05:37 BUN 13 mg/dl (9-20) 07/22/18 05:37 Creatinine 0.4 mg/dl (0.8-1.5) L 07/22/18 05:37 Est GFR ( Amer) > 60 07/22/18 05:37 Est GFR (Non-Af Amer) > 60 07/22/18 05:37 Random Glucose 144 mg/dL (75-110) H 07/22/18 05:37 Calcium 8.8 mg/dL (8.4-10.2) 07/22/18 05:37 Total Bilirubin 0.7 mg/dl (0.2-1.3) 07/22/18 05:37 AST 28 U/L (17-59) 07/22/18 05:37 ALT 26 U/L (21-72) 07/22/18 05:37 Alkaline Phosphatase 45 U/L (38-126) 07/22/18 05:37 Total Protein 6.6 G/DL (6.3-8.2) 07/22/18 05:37 Albumin 3.9 g/dL (3.5-5.0) 07/22/18 05:37 Globulin 2.7 gm/dL (2.2-3.9) 07/22/18 05:37 Albumin/Globulin Ratio 1.5 (1.0-2.1) 07/22/18 05:37 Procalcitonin < 0.05 NG/ML (0.19-0.49) L 07/21/18 14:30 Urine Color Yellow (YELLOW) 07/20/18 19:30 Urine Clarity Slighty-cloudy (Clear) 07/20/18 19:30 Urine pH 7.0 (5.0-8.0) 07/20/18 19:30 Ur Specific Union 1.023 (1.003-1.030) 07/20/18 19:30 Urine Protein 30 mg/dL (NEGATIVE) 07/20/18 19:30 Urine Glucose (UA) 50 mg/dL (NEGATIVE) 07/20/18 19:30 Urine Ketones Trace mg/dL (NEGATIVE) 07/20/18 19:30 Urine Blood Negative (NEGATIVE) 07/20/18 19:30 Urine Nitrate Negative (NEGATIVE) 07/20/18 19:30 Urine Bilirubin Negative (NEGATIVE) 07/20/18 19:30 Urine Urobilinogen 0.2-1.0 mg/dL (0.2-1.0) 07/20/18 19:30 Ur Leukocyte Esterase Neg Leonidas/uL (Negative) 07/20/18 19:30 Urine RBC (Auto) 3 /hpf (0-3) 07/20/18 19:30 Urine Microscopic WBC 1 /hpf (0-5) 07/20/18 19:30 Ur Squamous Epith Cells < 1 /hpf (0-5) 07/20/18 19:30 - Hospital Course Hospital Course: 62 y/o male with PMHx of COPD and tobacco abuse admitted for acute COPD exacerbation that improved with antibiotic and steroid treatment. Patient breathing comfortably today, will discharge home with medrol dose pack, and 5 more days of levaquin 750mg for treatment of his COPD exacerbation. Discharge Exam - Head Exam Head Exam: ATRAUMATIC, NORMAL INSPECTION, NORMOCEPHALIC - Eye Exam Eye Exam: EOMI, Normal appearance, PERRL - Respiratory Exam Respiratory Exam: Decreased Breath Sounds, Clear to PA & Lateral, Prolonged Expiratory Phase, NORMAL BREATHING PATTERN. absent: Wheezes - Cardiovascular Exam Cardiovascular Exam: REGULAR RHYTHM, +S1, +S2 - GI/Abdominal Exam GI & Abdominal Exam: Normal Bowel Sounds - Neurological Exam Neurological exam: Alert, CN II-XII Intact, Normal Gait, Oriented x3, Reflexes Normal - Skin Skin Exam: Dry, Intact, Normal Color, Warm Discharge Plan - Discharge Medications Prescriptions: Albuterol HFA [Ventolin HFA 90 mcg/actuation (8 g)] 2 puff IH Q4H PRN #1 inh PRN Reason: ASTHMA Albuterol/Ipratropium [Duoneb 3 MG/3 Ml-0.5 MG/3 Ml 3 Ml] 3 ml IH Q4 PRN #20 neb PRN Reason: Shortness Of Breath Fluticasone/Salmeterol [Airduo Respiclick 113-14 Mcg] 1 puff IH Q12 #1 aer.pow.ba levoFLOXacin [Levaquin] 750 mg PO DAILY 5 Days #5 tab Methylprednisolone [Medrol Dose Pack (21 tabs)] 4 mg PO DAILY #21 mg Methylprednisolone [Medrol Dose Pack (21 tabs)] 4 mg PO ASDIR #21 mg Montelukast Sodium [Singulair] 10 mg PO HS #30 tablet Tiotropium [Spiriva] 18 mcg IH DAILY #1 cap - Follow Up Plan Condition: STABLE Disposition: HOME/ ROUTINE Instructions: Exacerbation of COPD (DC) Additional Instructions: follow up appointment at [facility] on 07/26/18 take albuterol inhaler every four hours and medications as prescribed continue with your current medications as prescribed if symptoms worsen or are uncontrolled return to the ED Referrals: [facility] [Outside] <Diana Tyson - Last Filed: 07/23/18 13:33> Provider - Provider Date of Admission: 07/22/18 15:15 Attending physician: Donovan Martinez MD Consults: 07/21/18 12:52 Infectious Disease Consult Routine Comment: Consulting Provider: Carroll Giang Consulting Physician: Carroll Giang Reason for Consult: gram + cocci in blood, probably contaminant Hospital Course - Lab Results Lab Results: Micro Results 07/20/18 12:00 Blood-Venous Blood Culture - Preliminary NO GROWTH AFTER 3 DAYS 07/20/18 11:35 Blood-Venous S.aureus & Coag-Neg Staph PNA FISH - Final 07/20/18 11:35 Blood-Venous Blood Culture - Final Coagulase Neg Staphylococcus 07/20/18 11:35 Blood-Venous Gram Stain - Final 07/21/18 14:40 Blood-Venous Blood Culture - Preliminary NO GROWTH AFTER 24 HOURS 07/21/18 14:30 Blood-Venous Blood Culture - Preliminary NO GROWTH AFTER 24 HOURS Most Recent Lab Values WBC 5.9 K/uL (4.8-10.8) 07/22/18 05:37 RBC 4.02 Mil/uL (4.40-5.90) L 07/22/18 05:37 Hgb 12.8 g/dL (12.0-18.0) 07/22/18 05:37 Hct 38.4 % (35.0-51.0) 07/22/18 05:37 MCV 95.6 fl (80.0-94.0) H 07/22/18 05:37 MCH 31.7 pg (27.0-31.0) H 07/22/18 05:37 MCHC 33.2 g/dL (33.0-37.0) 07/22/18 05:37 RDW 13.9 % (11.5-14.5) 07/22/18 05:37 Plt Count 221 K/uL (130-400) 07/22/18 05:37 MPV 8.1 fl (7.2-11.7) 07/20/18 12:02 Neut % (Auto) 58.4 % (50.0-75.0) 07/20/18 12:02 Lymph % (Auto) 15.3 % (20.0-40.0) L 07/20/18 12:02 Dooly % (Auto) 14.2 % (0.0-10.0) H 07/20/18 12:02 Eos % (Auto) 10.8 % (0.0-4.0) H 07/20/18 12:02 Baso % (Auto) 1.3 % (0.0-2.0) 07/20/18 12:02 Neut # (Auto) 3.4 K/uL (1.8-7.0) 07/20/18 12:02 Lymph # (Auto) 0.9 K/uL (1.0-4.3) L 07/20/18 12:02 [place]y # (Auto) 0.8 K/uL (0.0-0.8) 07/20/18 12:02 Eos # (Auto) 0.6 K/uL (0.0-0.7) 07/20/18 12:02 Baso # (Auto) 0.1 K/uL (0.0-0.2) 07/20/18 12:02 PT 10.3 Seconds (9.8-13.1) 07/20/18 12:02 INR 0.9 07/20/18 12:02 APTT 29.1 Seconds (25.6-37.1) 07/20/18 12:02 Sodium 134 mmol/l (132-148) 07/22/18 05:37 Potassium 3.8 MMOL/L (3.6-5.0) 07/22/18 05:37 Chloride 102 mmol/L (98-107) 07/22/18 05:37 Carbon Dioxide 25 mmol/L (22-30) 07/22/18 05:37 Anion Gap 11 (10-20) 07/22/18 05:37 BUN 13 mg/dl (9-20) 07/22/18 05:37 Creatinine 0.4 mg/dl (0.8-1.5) L 07/22/18 05:37 Est GFR ( Amer) > 60 07/22/18 05:37 Est GFR (Non-Af Amer) > 60 07/22/18 05:37 Random Glucose 144 mg/dL (75-110) H 07/22/18 05:37 Calcium 8.8 mg/dL (8.4-10.2) 07/22/18 05:37 Total Bilirubin 0.7 mg/dl (0.2-1.3) 07/22/18 05:37 AST 28 U/L (17-59) 07/22/18 05:37 ALT 26 U/L (21-72) 07/22/18 05:37 Alkaline Phosphatase 45 U/L (38-126) 07/22/18 05:37 Total Protein 6.6 G/DL (6.3-8.2) 07/22/18 05:37 Albumin 3.9 g/dL (3.5-5.0) 07/22/18 05:37 Globulin 2.7 gm/dL (2.2-3.9) 07/22/18 05:37 Albumin/Globulin Ratio 1.5 (1.0-2.1) 07/22/18 05:37 Procalcitonin < 0.05 NG/ML (0.19-0.49) L 07/21/18 14:30 Urine Color Yellow (YELLOW) 07/20/18 19:30 Urine Clarity Slighty-cloudy (Clear) 07/20/18 19:30 Urine pH 7.0 (5.0-8.0) 07/20/18 19:30 Ur Specific Union 1.023 (1.003-1.030) 07/20/18 19:30 Urine Protein 30 mg/dL (NEGATIVE) 07/20/18 19:30 Urine Glucose (UA) 50 mg/dL (NEGATIVE) 07/20/18 19:30 Urine Ketones Trace mg/dL (NEGATIVE) 07/20/18 19:30 Urine Blood Negative (NEGATIVE) 07/20/18 19:30 Urine Nitrate Negative (NEGATIVE) 07/20/18 19:30 Urine Bilirubin Negative (NEGATIVE) 07/20/18 19:30 Urine Urobilinogen 0.2-1.0 mg/dL (0.2-1.0) 07/20/18 19:30 Ur Leukocyte Esterase Neg Leonidas/uL (Negative) 07/20/18 19:30 Urine RBC (Auto) 3 /hpf (0-3) 07/20/18 19:30 Urine Microscopic WBC 1 /hpf (0-5) 07/20/18 19:30 Ur Squamous Epith Cells < 1 /hpf (0-5) 07/20/18 19:30 Attending/Attestation - Attestation I have personally seen and examined this patient.: Yes I have fully participated in the care of the patient.: Yes I have reviewed all pertinent clinical information, including history, physical exam and plan: Yes Notes (Text): Discharge Diagnoses: COPD exacerbation Acute Bronchitis + Blood culture likely Contaminant, Bacteremia ruled out - tapered off IV Solumedrol - change to Medrol dose ebony -cont Duoneb, cont inhaled steroids -d/c home on PO Levaquin Levaquin - Pt received IV Vanco and Levaquin - 1 out of 2 Blood c/s + for Gram + Cocci ( rpt blood c/s done before starting IV Vanco negative so far ) -ID consulted
--- NOTE | 2018-07-23 13:36 | PQF ---
PROVIDER RESPONSE TEXT: Bacteremia ruled out Positive Blood Culture likely contaminant REVIEWER QUERY TEXT: Rule Out Condition Clarification Pt has documented + Blood Culture: Bacteremia vs Contaminant in PN 07/22.19 and no mention in the dis charge summary. Please clarify status of this condition ( Bacteremia ) -Patient has condition -Condition was ruled out Please provide corresponding diagnosis for patient's clinical picture and associated treatment -Patient had condition which is now resolved -Other (please specify) -Clinically unable to determine -Unknown The patient's Clinical Indicators include: Admitted with COPD exacerbation. Blood CS x 1 on admission + Coagulase Neg Staphlococcus. Repeat Blood CS no growth x 24 hours Consult ID: Blood CS likely a contaminant --await repeat cultures Rx: IVAB Query created by: Dasha Michel on 07/23/2018 1:22 PM Electronically signed by: Diana Tyson MD 07/23/2018 1:34 PM
[2018-07-25 19:04] VITALS: O2SAT 96
== END 2018-07-23 13:34 | disposition home or self-care (01) | DRG 88 ==
LOC: H.ER 10:51 → INTOOBSV 13:44 → H.ERHOLD 13:44 → H.MEDSURG1 14:59 → OBSVTOIN 07-22 15:15 → H.MEDSURG1 07-23 05:14
PROC: 3E0F73Z Introduction of Anti-inflammatory into Respiratory Tract, Via Natural or Artificial Opening (ICD-10-PCS; principal; 2018-07-22)
DX: J44.1 Chronic obstructive pulmonary disease with (acute) exacerbation (principal); J20.9 Acute bronchitis, unspecified; J44.0 Chronic obstructive pulmonary disease with (acute) lower respiratory infection; F17.210 Nicotine dependence, cigarettes, uncomplicated; F10.10 Alcohol abuse, uncomplicated; Z87.01 Personal history of pneumonia (recurrent)